=== PATIENT | female | born 1945 | race African-American/Black ===

== ENCOUNTER 2022-07-17 01:58 | Inpatient (IN) | payer MEDICARE, MEDICAID, SELFPAY ==
[2022-07-17] VITALS (76 sets, daily range): BP systolic 53–149; BP diastolic 24–98; PULSE 80–117; RESP 12–51; TEMP 36.4–36.8; O2SAT 80–100; BMI 21.2; BMI 18.3
--- NOTE | ~2022-07-17 | XR_ITS ---
Portable supine view of the abdomen Clinical history: NG tube placement Findings: NG tube is in satisfactory position. IVC filter noted. Bowel gas pattern is nonspecific. No evidence for obstruction or free air. No abnormal mass lesion or calcification is seen. Osseous stru ctures are intact. Impression: NG tube in satisfactory position. Reviewed, dictated and finalized at [facility]. Impression: NG tube in satisfactory position.
--- NOTE | ~2022-07-17 | XR_ITS ---
AP view of the pelvis Clinical history: Femoral line placement Findings: Right femoral line is in place. Prominent stool noted at the rectum. No acute fracture or d islocation is seen. Bilateral hip and SI joint spaces are preserved. Soft tissues are unremarkable. Impression: Right femoral line in place. Prominent stool at the rectum. Correlate for fecal impaction. Reviewed, dictated and finalized at location . Impression: Right femoral line in place. Prominent stool at the rectum. Correlate for fecal impaction.
--- NOTE | ~2022-07-17 | XR_ITS ---
Portable chest x-ray Comparison: 07/17/2022 at 2:50 AM Clinical History: Tube placement Findings: Endotracheal tube and NG tube are in satisfactory positions. COPD and/or chronic bibasilar interstitial disease are unchanged. Questionable minimal pleural effusions. Cardiomediastinal silho uette is stable. Bones and soft tissues are unremarkable. Impression: Support tubes, as above. Advanced COPD and/or bibasilar chronic interstitial disease is unchanged. Questionable minimal pleural effusions. Reviewed, dictated and finalized at location [facility]. Impression: Support tubes, as above. Advanced COPD and/or bibasilar chronic interstitial disease is unchanged. Questionable minimal pleural effusions.
--- NOTE | ~2022-07-17 | CT_ITS ---
Clinical Indication: Pulmonary embolus CT Scan of the Chest with Contrast: Technique: Contiguous sections were acquired throughout the chest after intravenous administration of 100 cc of Omnipaque 350. Dose reduction technique was used on this scan by utilizing automated expos ure control and iterative reconstruction technique. The dose-length product (DLP) was 279.20 mGy-cm. Findings: Endotracheal tube and NG tube are in place. There is no evidence of any significant mediastinal, hilar or axillary lymphadenopathy. There is no f illing defect in the pulmonary arterial tree to suggest pulmonary embolus. There is no evidence of ao rtic aneurysm. No pericardial effusion. [id number] right pleural effusion is present. Small left pleural effusion is present. There is extensive right lower lobe consolidation, suspicious for pneumonia. There is probable dependent left basilar atelectasis. There is severe underlying emphysema. Images through the upper abdomen reveal IVC filter and nonobstructing right renal stones. There are mild compression of T7, T9, and T10. Moderate to severe compression deformity at T11 presen t. Moderate compression deformity of L1 present. Impression: No pulmonary embolus. Small to moderate right pleural effusion with probable right lower lobe pneumonia. Severe emphysema bilaterally. Small left pleural effusion with probable dependent left basilar atelectatic change. Compression fractures of T7, T9, T10, T11, and L1, likely chronic. Reviewed, dictated and finalized at [facility]. Impression: No pulmonary embolus. Small to moderate right pleural effusion with probable right lower lobe pneumon ia. Severe emphysema bilaterally. Small left pleural effusion with probable dependent left basilar atelectatic ch jeanette. Compression fractures of T7, T9, T10, T11, and L1, likely chronic.
--- NOTE | ~2022-07-17 | XR_ITS ---
EXAMINATION: XR chest 1V portable DATE: 07/18/2022 06:34 INDICATION: Respiratory failure. TECHNIQUE: A single frontal view of the chest was obtained. COMPARISON: Chest single view 07/17/2022, chest CT 07/17/2022 FINDINGS: There are lucencies and interstitial opacities in the lungs, consistent with emphysema. The re is mild scarring at the lung apices. There are airspace opacities in the mid and lower lung zones. There are small pleural effusions. No pneumothorax. The heart size is normal. The endotracheal tube tip is 1.7 cm above the selam. The nasogastric tube tip is in the stomach. There is a filter in the inferior vena cava. IMPRESSION: 1. Stable airspace opacities in the mid and lower lung zones, consistent with pneumonia. 2. Stable small pleural effusions. 3. Emphysema. Reviewed, dictated and finalized at location [facility]. IMPRESSION: 1. Stable airspace opacities in the mid and lower lung zones, consistent with p neumonia. 2. Stable small pleural effusions. 3. Emphysema.
--- NOTE | ~2022-07-17 | XR_ITS ---
Portable chest x-ray Comparison: None Clinical History: Dyspnea Findings: There is bibasilar haziness and chronic interstitial disease. Probable COPD. Cardiomedias tinal silhouette is stable. Bones and soft tissues are unremarkable. Impression: COPD and other chronic bibasilar interstitial disease. Questionable superimposed minimal bibasilar pulmonary edema. Reviewed, dictated and finalized at [facility]. Impression: COPD and other chronic bibasilar interstitial disease. Questionable superimposed minimal bibasilar pulmonary edema.
--- NOTE | ~2022-07-17 | XR_ITS ---
EXAMINATION: XR chest 1V portable DATE: 07/23/2022 06:52 INDICATION: Respiratory failure. TECHNIQUE: A single frontal view of the chest was obtained. COMPARISON: Chest single view 07/22/2022 FINDINGS: There is a diffuse interstitial pattern in the lungs. There are lucencies in the upper lung s, consistent with emphysema. There are airspace opacities at the lung bases. There are small pleural effusions. No pneumothorax. The heart size is normal. A left upper extremity peripherally inserted c entral venous catheter (PICC) is seen with tip in the superior vena cava. There is a filter in the in ferior vena cava. IMPRESSION: 1. Stable diffuse lung disease, likely a combination of mild pulmonary edema and basilar pneumonia. 2. Emphysema. 3. Stable small pleural effusions. Reviewed, dictated and finalized at location [facility]. IMPRESSION: 1. Stable diffuse lung disease, likely a combination of mild pulmonary edema an d basilar pneumonia. 2. Emphysema. 3. Stable small pleural effusions.
--- NOTE | ~2022-07-17 | XR_ITS ---
Portable chest x-ray Comparison: 07/18/2022 Clinical History: Respiratory failure Findings: Endotracheal tube is in satisfactory position. Small to moderate bilateral pleural effusio ns are present. There is probable mild bibasilar pulmonary edema. Suspected underlying COPD. Cardiom ediastinal silhouette is stable. Bones and soft tissues are unremarkable. Impression: Small to moderate bilateral pleural effusions with probable mild bibasilar pulmonary edema. Probable underlying COPD. ET tube in place. Reviewed, dictated and finalized at location [facility]. Impression: Small to moderate bilateral pleural effusions with probable mild bibasilar pulm onary edema. Probable underlying COPD. ET tube in place.
--- NOTE | ~2022-07-17 | XR_ITS ---
EXAMINATION: XR chest PICC line DATE: 07/22/2022 12:59 INDICATION: Central line placement. TECHNIQUE: A single frontal view of the chest was obtained. COMPARISON: Chest single view 07/22/2022 FINDINGS: There are small pleural effusions. There are airspace opacities in the mid and lower lung z ones. There are lucencies in the upper lungs, consistent with emphysema. No pneumothorax. The heart s ize is normal. A left upper extremity peripherally inserted central venous catheter (PICC) is seen wi th tip in the superior vena cava. There is a filter in the inferior vena cava. IMPRESSION: 1. PICC tip in superior vena cava. 2. Airspace opacities in the mid and lower lung zones with improvement on the left, consistent with p neumonia. 3. Stable small pleural effusions. 4. Emphysema. Reviewed, dictated and finalized at location [facility]. IMPRESSION: 1. PICC tip in superior vena cava. 2. Airspace opacities in the mid and lower lung zones with improvement on the l eft, consistent with pneumonia. 3. Stable small pleural effusions. 4. Emphysema.
--- NOTE | ~2022-07-17 | XR_ITS ---
EXAMINATION: XR chest 1V portable DATE: 07/22/2022 05:21 INDICATION: Respiratory failure. TECHNIQUE: A single frontal view of the chest was obtained. COMPARISON: Chest single view 07/21/2022, chest CT 07/17/2022 FINDINGS: There are lucencies in the lungs, consistent with emphysema. There are airspace opacities i n right mid and lower lung zones and all left lung zones with sparing of left lung apex. There are sm all pleural effusions. No pneumothorax. The heart size is normal. There is a filter in the inferior v ajay cava. IMPRESSION: 1. Stable airspace opacities in right mid and lower lung zones and left lung, consistent with pneumon ia. 2. Stable small pleural effusions. 3. Emphysema. Reviewed, dictated and finalized at location [facility]. IMPRESSION: 1. Stable airspace opacities in right mid and lower lung zones and left lung, c onsistent with pneumonia. 2. Stable small pleural effusions. 3. Emphysema.
--- NOTE | ~2022-07-17 | CT_ITS ---
CT head without contrast Indication: Mental status change Technique: Serial scans were obtained through the brain without the administration of contrast. Dose reduction technique was used on this scan by utilizing automated exposure control and iterative recon struction technique. The dose-length product (DLP) was 605.33 mGy-cm. Findings: There is no evidence of intracranial hemorrhage, mass lesion, or acute infarct. The ventri cles and subarachnoid spaces are dilated, consistent with mild atrophy. Low attenuation regions are seen within the periventricular white matter bilaterally, likely representing changes from chronic mi crovascular ischemic disease. There is no evidence of edema, mass effect or midline shift. There is bilateral ethmoid sinus disease and right sphenoid sinus disease and mild right maxillary sinus disea se. The remaining visualized paranasal sinuses and mastoid air cells are clear. Impression: No intracranial hemorrhage, mass, or acute infarct. Atrophy and chronic white matter changes, as above. Sinus disease, as above. Reviewed, dictated and finalized at [facility]. Impression: No intracranial hemorrhage, mass, or acute infarct. Atrophy and chronic white matter changes, as above. Sinus disease, as above.
--- NOTE | ~2022-07-17 | XR_ITS ---
Portable chest x-ray Comparison: 07/20/2022 Clinical History: Respiratory failure Findings: ET tube in place. Small bilateral pleural effusions are present. Probable mild to moderate pulmonary edema pattern. Suspected minimal chronic interstitial disease or COPD. Cardiomediastinal silhouette is stable. Bones and soft tissues are unremarkable. Impression: Small bilateral pleural effusions with mild to moderate pulmonary edema pattern. Probable underlying COPD or chronic interstitial disease. ET tube in place. Reviewed, dictated and finalized at location . Impression: Small bilateral pleural effusions with mild to moderate pulmonary edema pattern . Probable underlying COPD or chronic interstitial disease. ET tube in place.
--- NOTE | 2022-07-17 02:01 | ECG_ITS ---
Measurements Intervals [place] Rate: 102 P: 63 [place]: 146 QRS: 5 QRSD: 78 T: 65 QT: 323 QTc: 421 Interpretive Statements SINUS TACHYCARDIA FREQUENT VENTRICULAR PREMATURE COMPLEXES RSR' IN V1 OR V2, PROBABLY NORMAL VARIANT MINIMAL Q WAVES- INFERIOR LEADS BASELINE ARTIFACT- I, II, III, AVR, V1-V6 ABNORMAL ECG NO PREVIOUS ECG AVAILABLE FOR COMPARISON Electronically Signed On 07-17-2022 6:50:25 CDT by Santino Colorado D.O.
[2022-07-17 02:20] LABS: Basophils Percent Auto 0.3 % (0.2-1.2); Hematocrit 49.9 % (37.0-47.0); Immature Granulocyte Absolute 0.06 K/mm3 (0.00-0.031); Immature Granulocyte Percent A 0.5 % (0-0.5); Lymphocytes Absolute Auto 0.91 K/mm3 (0.9-3.2); Lymphocytes Percent Auto 7.7 % (18.3-44.2); Mean Corpuscular HGB Conc 30.1 g/dl (32-36); Mean Corpuscular Hemoglobin 29.2 pg (26-34); Mean Corpuscular Volume 97.1 fl (80-100); Mean Platelet Volume 10.5 fl (7.4-10.4); Monocytes Absolute Auto 1.1 K/mm3 (0.1-0.6); Monocytes Percent Auto 8.9 % (2.6-8.5); Neutrophils Absolute Auto 9.8 K/mm3 (1.3-6.7); Neutrophils Percent Auto 82.6 % (45.5-73.1); Platelet Count Result 315 k/mm3 (150-375); Red Blood Count 5.14 M/mm3 (4.2-5.4); Red Cell Distribution Width 15.4 % (11.5-14.5); White Blood Count 11.9 K/mm3 (4.5-10.0)
[2022-07-17 02:24] LABS: Alveolar/Arterial O2 Gradient 354.1 mmHg; Base Excess ABG 5.3 mEq/l (+/-2.0); Fractional Inspired Oxygen 70 %; HCO3 ABG 34.3 mEq/l (22.0-26.0); Oxygen Content ABG 19.5 %vol (16.0-22.0); Oxygen Saturation ABG 91.6 % (95.0-100.0); Oxyhemoglobin 91.1 % THb (90.0-100.0); PO2 ABG 69.4 mmHg (80.0-100.0); PO2 FiO2 Ratio Arterial Blood 0.99 %; Total Hemoglobin 15.2 g/dL (12.0-18.0); pH ABG 7.306 (7.350-7.450)
[2022-07-17 02:25] LABS: PCO2 ABG 70.3 mmHg (35.0-45.0); Site Drawn RIGHT BRACHIAL
[2022-07-17 02:26] LABS: CPAP 5 cmH2O; Device CPAP
[2022-07-17 02:32] LABS: Alanine Aminotransferase 25 U/L (6-35); Alkaline Phosphatase 119 U/L (38-126); Anion Gap 6 mmol/L (8-16); Aspartate Amino Transferase 36 U/L (14-36); Bilirubin,Total 0.6 mg/dL (0.2-1.3); Blood Urea Nitrogen 55 mg/dL (7-17); Calcium 10.5 mg/dL (8.4-10.2); Carbon Dioxide 38 mmol/L (22-30); Chloride 103 mmol/L (98-107); Estimated Glomerular Filt Rate > 60; Glucose 207 mg/dL (65-110); Lactic Acid Reflex 1.9 mmol/L (0.7-2.0); Magnesium 2.6 mg/dL (1.6-2.3); Potassium 4.5 mmol/L (3.4-5.0); Sodium 147 mmol/L (137-145); Triglycerides 145 mg/dL (<150)
[2022-07-17] MEDS: LORazepam INJ (*CRX) 2 MG/ML VIAL 0.5 MG IV PUSH (02:41)
[2022-07-17 02:42] LABS: INR 1.2; Prothrombin Time 14.9 Seconds (11.1-14.7)
[2022-07-17 02:43] LABS: Partial Thromboplastin Time 29.6 SECONDS (22.3-36.8)
[2022-07-17 02:44] LABS: NT Pro B Type Natriuretic Pept 1180 pg/mL (19.9-100); Troponin I 0.017 ng/mL (0.000-0.034)
[2022-07-17] MEDS: IPRATROPIUM BR 0.02% INH SOLN 0.5 MG/2.5 ML VIAL INHALATION ×3 (02:47→20:59)
[2022-07-17] MEDS: ALBUTEROL SULFATE NEB 2.5 MG/3 ML INH INHALATION (02:47)
[2022-07-17 03:09] LABS: Influenza A QL RT-PCR Negative (Negative); Influenza B QL RT-PCR Negative (Negative); RSV RNA, RT-PCR Negative (Negative); SARS-CoV-2 RNA PCR Negative
[2022-07-17 03:14] LABS: Procalcitonin 0.5 ng/mL
[2022-07-17 03:36] LABS: Alveolar/Arterial O2 Gradient 208.7 mmHg; Base Excess ABG 6.9 mEq/l (+/-2.0); Fractional Inspired Oxygen 50 %; HCO3 ABG 35.6 mEq/l (22.0-26.0); Oxygen Content ABG 19.8 %vol (16.0-22.0); Oxygen Saturation ABG 92.5 % (95.0-100.0); Oxyhemoglobin 91.6 % THb (90.0-100.0); PO2 ABG 70.4 mmHg (80.0-100.0); PO2 FiO2 Ratio Arterial Blood 1.41 %; Total Hemoglobin 15.4 g/dL (12.0-18.0); pH ABG 7.332 (7.350-7.450)
[2022-07-17 03:38] LABS: Device BIPAP; Modified Allen's Test Pass; PCO2 ABG 68.8 mmHg (35.0-45.0); Site Drawn LEFT RADIAL
[2022-07-17 03:39] LABS: Expiratory Pressure 6 cmH2O; Inspiratory Pressure 14 cmH2O
[2022-07-17] MEDS: ETOMIDATE 20 MG/10 ML AMPUL IV PUSH (04:05)
[2022-07-17] MEDS: SUCCINYLCHOLINE CHLORIDE 20 MG/ML 10 ML VIAL 100 MG IV PUSH (04:06)
[2022-07-17] MEDS: SODIUM CHLORIDE 0.9% IV 1,000 ML 999 ML (04:21)
[2022-07-17 04:27] LABS: Appearance Urine Cloudy (Clear); Bacteria Urine None Seen /hpf; Bilirubin Urine 1+ (Negative); Blood Urine 2+ (Negative); Color Urine Dark Yellow (Yellow); Glucose Urine UA Negative (Negative); Ketones Urine Trace mg/dL (Negative); Leukocyte Esterase Ur 2+ LEU/UL (Negative); Need Manual Microscopic Reviewed; Nitrate Urine Negative (Negative); Non Pathogenic Casts >20; Protein Urine 3+ mg/dL (Negative); RBC Urine 21-50 /hpf (0-2); Specific Grav Ur 1.022 (1.001-1.035); Squamous Epithelial Cell Urine Few /hpf (Few); pH Urine 5.5 (5.0-9.0)
[2022-07-17] MEDS: SODIUM CHLORIDE 0.9% IV 1,000 ML 999 ML IV CONT ×2 (04:38→04:58)
[2022-07-17] MEDS: PIPERACILLN/TAZ 3.375GM/NS50ML 3.375 GM/50 ML BAG IVPB ×4 (04:45→23:03)
[2022-07-17 04:46] LABS: Add Urine Microscopic? YES
[2022-07-17] MEDS: KETAMINE HCL (*CRX) 500 MG/10 ML VIAL 50 MG IV PUSH (04:49)
[2022-07-17] MEDS: MIDAZOLAM HCL (*CRX) 2 MG/2 ML VIAL IV PUSH (04:49)
--- NOTE | 2022-07-17 05:26 | ED.GENADULT ---
HPI - General Adult General Chief complaint: Shortness of Breath/Dyspnea Stated complaint: DIFFICULTY IN BREATHING, AMS Time Seen by Provider: 07/17/22 01:59 History of Present Illness HPI narrative: Patient 76-year-old female who presents the emergency department with chief complaint of altered mental status and shortness of breath. The patient has prior history of respiratory failure and was admitted in [facility] back in April after she had had COVID and then developed pneumonia. The patient has had a PEG tube and has been doing tube feeds until fairly recently when they were able to restart oral feeding. Patient became short of breath this evening and is having worsening shortness of breath EMS was called and the patient was minimally responsive with a respiratory rate in the 40s and 50s. The patient was started on CPAP Related Data Home Medications Medication Instructions Recorded Confirmed acetaminophen 325 mg capsule 650 mg PRN Pain 07/17/22 amlodipine 10 mg tablet mg 07/17/22 famotidine 20 mg tablet mg 07/17/22 hydrochlorothiazide 25 mg tablet mg 07/17/22 ipratropium 0.5 mg-albuterol 3 mg ml inhalation 07/17/22 (2.5 mg base)/3 mL nebulization soln levetiracetam 750 mg tablet mg PO 07/17/22 losartan 50 mg tablet mg 07/17/22 metoprolol tartrate 50 mg tablet mg 07/17/22 mirtazapine 7.5 mg tablet mg 07/17/22 Allergies Allergy/AdvReac Type Severity Reaction Status Date / Time heparin (porcine) Allergy Unknown Verified 07/17/22 02:44 Review of Systems Review of Systems: A 10 system review of systems was completed on the patient and is negative except for what is stated in the HPI. Nursing and ancillary documentation was reviewed. PMFSH Comments Resident of a local nursing facility, prior trach, prior PEG Exam Narrative: GENERAL: Ill-appearing respiratory distress minimally responsive HEAD: Normocephalic, atraumatic. EYES: PERRLA and EOMI. ENT: Nares clear, no rhinorrhea or epistaxis. Mucous membranes moist. NECK: Supple. CHEST: Clear to auscultation. Severe respiratory distress. HEART: Regular rate and rhythm. No murmur heard. Normal peripheral pulses. ABDOMEN: Soft, nontender, nondistended, normal active bowel sounds. EXTREMITIES: Normal range of motion. No edema. SKIN: Warm, dry, no rash. NEURO: Minimally responsive PSYCH: Normal mood and affect. Course Course Emergency Course: Differential diagnosis include pneumonia, CHF, pulmonary embolism, ICH Vital Signs Vital signs: Vital Signs Temperature 36.4 C L 07/17/22 01:56 Pulse Rate 106 H 07/17/22 01:56 Respiratory Rate 40 H 07/17/22 01:56 Blood Pressure 147/83 H 07/17/22 01:56 Pulse Oximetry 93 07/17/22 01:56 Oxygen Delivery CPAP 07/17/22 01:56 Temperature 36.4 C L 07/17/22 01:56 Pulse Rate 92 07/17/22 05:27 Respiratory Rate 16 07/17/22 05:06 Blood Pressure 69/53 L 07/17/22 05:27 Pulse Oximetry 99 07/17/22 05:06 Oxygen Delivery Mechanical Ventilation 07/17/22 04:29 Procedures Central Line Placement Right Femoral: Central Line Date: 07/17/22 Central Line Time: 05:27 Discussed w/ the patient/family/POA,the placement of a central venous catheter, including its clinical necessity/indication & associated potential risks, benifits and alternatives.: Yes Time Out Performed: Yes Patient Placed on Monitor/Pulse Ox: Yes Max. Sterile Barrier Technique: Caps, large sterile sheet and hand hygiene Central Line Prep: 2% chlorhexidine scrub and sterile drapes applied Technique: sterile prep/drape Local Anesthetic: none Central Line Lumen Inserted: triple Post Procedure: sutured in place, good blood return, all ports aspirated, flushed, capped and sterile dressing applied Patient Tolerated Procedure: well and no complications Intubation Intubation #1: Intubation Date: 07/17/22 Intubation Time: 02:30
[2022-07-17] MEDS: NOREPINEPHRINE 8 MG/D5W 250 ML 8 MG/250 ML BAG 9.38 MG IV CONT (05:27)
[2022-07-17] MEDS: PROPOFOL IV EMULSION 100 ML 1.6 MG IV CONT (06:11)
[2022-07-17 06:40] LABS: Troponin I 0.016 ng/mL (0.000-0.034)
--- NOTE | 2022-07-17 07:20 | ADMGEN ---
This patient, Gabriela Aguayo, was admitted to Intensive Care Unit-5. Patient/family oriented to hospital policies and general routines including ID bracelet, bed and alarms, visiting hours, pain management, procedures, bathroom and other care routines, personal items, smoking policy, room service/diet, and visiting hours. Information on how to activate the Rapid Response Team has been discussed. Patient/Family are encouraged to report perceived risks to care and to ask questions if they do not understand what they are told or what they should do.
[2022-07-17] MEDS: SODIUM CHLORIDE 0.9% IV 1,000 ML 125 ML IV CONT ×2 (07:43→16:58)
[2022-07-17 08:40] LABS: Alveolar/Arterial O2 Gradient 243.7 mmHg; Base Excess ABG 4.4 mEq/l (+/-2.0); Fractional Inspired Oxygen 50 %; HCO3 ABG 28.1 mEq/l (22.0-26.0); Oxygen Content ABG 17.7 %vol (16.0-22.0); PCO2 ABG 38.6 mmHg (35.0-45.0); PO2 ABG 69.4 mmHg (80.0-100.0); PO2 FiO2 Ratio Arterial Blood 1.39 %; Total Hemoglobin 13.4 g/dL (12.0-18.0)
[2022-07-17 08:41] LABS: Modified Allen's Test Pass; Site Drawn RIGHT RADIAL
[2022-07-17 08:42] LABS: Arterial Blood Gas Vent Mode CMV; Arterial Blood Gas Ventilator rate 16 /MIN; Device VENTILATOR
[2022-07-17 08:43] LABS: Arterial Blood Gas Minute Volume 6.8 LPM; Arterial Blood Gas PEEP 5 cmH2O; Arterial Blood Gas Tidal Volume 450 ml
--- NOTE | 2022-07-17 09:30 | WPDCNINT ---
Assessment and Plan Assessment and plan (1) Acute hypercapnic respiratory failure: Code(s): J96.02 - Acute respiratory failure with hypercapnia Status: Acute Assessment and Plan: Hypercapnic respiratory failure likely related to pneumonia, COPD exacerbation -intubated on 07/17/2022 -chest x-ray reviewed - ABGs reviewed, tidal volumes decreased to 400 -continue Zosyn and vancomycin (07/17) -will continue bronchodilators and Pulmicort -sedated with propofol at 5 mcg/kg/min, daily spontaneous awakening trials and spontaneous breathing trial -continue low tidal volume strategy -07/17 CTA chest showed no pulmonary embolism, small to moderate right pleural effusion with probable right lower lobe pneumonia. Severe emphysema bilaterally. Small left pleural effusion with probable dependent left basilar atelectatic change (2) Septic shock: Code(s): A41.9 - Sepsis, unspecified organism; R65.21 - Severe sepsis with septic shock Status: Acute Assessment and Plan: Likely related to pneumonia, hypercapnic respiratory failure -continue antibiotics as above -07/17/2022 blood cultures have been obtained and pending -07/17/2022 MRSA screen is pending -07/17/2022 sputum cultures have been ordered -patient on Levophed, will maintain MAP > 65 mmHg at all times for adequate end organ perfusion -lactic acid is in normal limits (3) Pneumonia: Code(s): J18.9 - Pneumonia, unspecified organism Status: Acute Assessment and Plan: Right lower lobe pneumonia seen on CTA chest -continue antibiotics as above (4) Acute UTI: Code(s): N39.0 - Urinary tract infection, site not specified Status: Acute Assessment and Plan: UA was positive for leukocyte esterase, continue antibiotics as above, urine cultures have been obtained and pending (5) Seizures: Code(s): R56.9 - Unspecified convulsions Status: Acute Assessment and Plan: Patient is on Keppra at home for seizures, will continue (6) COPD (chronic obstructive pulmonary disease): Code(s): J44.9 - Chronic obstructive pulmonary disease, unspecified Status: Acute Assessment and Plan: History of COPD, continue bronchodilators, mechanical ventilation and antibiotics, -no wheezing noted will avoid steroids at this time (7) GERD (gastroesophageal reflux disease): Code(s): K21.9 - Gastro-esophageal reflux disease without esophagitis Status: Acute Assessment and Plan: History of GERD, will start on Protonix (8) Essential hypertension: Code(s): I10 - Essential (primary) hypertension Status: Acute Assessment and Plan: Patient does take antihypertensive medications, will currently hold place them on hold due to patient being on pressors Plan DVT prophylaxis: Lovenox SQ Stress ulcer prophylaxis: Protonix Nutrition: Will start tube feeds per PEG tube Code Status: Full code Critical Care Time Spent: 49 minutes Due to a high probability of clinically significant, life threatening deterioration, the patient required my highest level of preparedness to intervene emergently and I personally spent this critical care time directly and personally managing the patient. This critical care time included obtaining a history; examining the patient; pulse oximetry; ordering and review of studies; arranging urgent treatment with development of a management plan; evaluation of patient's response to treatment; frequent reassessment; and discussions with other providers. It was exclusive of separately billable procedures and treating other patients and teaching time. Please see Assessment and Plan section and the rest of the note for further information on patient assessment and treatment This dictation may have been done utilizing a voice recognition system. Attempts have been made to correct errors. However, there may be uncorrected grammatical, spelling, and recognitions errors present.
[2022-07-17] MEDS: FONDAPARINUX SODIUM 2.5 MG/0.5 ML SYRINGE SUB-Q (10:41)
[2022-07-17] MEDS: PANTOPRAZOLE SODIUM IV 40 MG VIAL IV PUSH (10:41)
--- NOTE | 2022-07-17 11:08 | PCDIET ---
Tube feeding recommendation using existing PEG tube: Vital AF 1.2 @ goal rate of 45ml/hr to provide 1188kcals, 74g protein to meet 100% of estimated needs at this time. Start at 20ml/hr and advance q 4hrs by 10ml as tolerated, to goal rate.
[2022-07-17] MEDS: levETIRAcetam Tablet 250 MG, levETIRAcetam Tablet 500 MG 750 MG PO ×2 (12:24→20:27)
--- NOTE | 2022-07-17 14:57 | PM.IMHP ---
H&P: HPI History of Present Illness Date/Time: 07/17/22 14:57 Chief Complaint: Patient 76-year-old female who presents the emergency department with chief complaint of altered mental status and shortness of breath.? The patient has prior history of respiratory failure and was admitted in [facility] back in April after she had had COVID and then developed pneumonia.? The patient has had a PEG tube and has been doing tube feeds until fairly recently when they were able to restart oral feeding.? Patient became short of breath this evening and is having worsening shortness of breath EMS was called and the patient was minimally responsive with a respiratory rate in the 40s and 50s.? The patient was started on CPAP Review of Systems Review of Systems: unable to obtain - patient intubated [facility] Social History Social History Smoking status: Unknown if ever smoked Alcohol intake: unknown Substance use: unknown Spiritual care concerns: No Meds Home Medications and Allergies Home Medications Medication Instructions Recorded Confirmed Type acetaminophen 325 mg capsule 650 mg PO Q6-8H PRN Pain 07/17/22 07/17/22 History amlodipine 10 mg tablet 10 mg DAILY 07/17/22 07/17/22 History famotidine 20 mg tablet 20 mg PO BID 07/17/22 07/17/22 History hydrochlorothiazide 25 mg tablet 25 mg PO DAILY 07/17/22 07/17/22 History ipratropium 0.5 mg-albuterol 3 mg 1 ml Q6H PRN Shortness Of Breath 07/17/22 07/17/22 History (2.5 mg base)/3 mL nebulization soln levetiracetam 750 mg tablet 750 mg PO BID 07/17/22 07/17/22 History losartan 50 mg tablet 50 mg PO DAILY 07/17/22 07/17/22 History metoprolol tartrate 50 mg tablet 50 mg PO BID 07/17/22 07/17/22 History mirtazapine 7.5 mg tablet 7.5 mg PO HS 07/17/22 07/17/22 History Allergies Allergy/AdvReac Type Severity Reaction Status Date / Time heparin (porcine) Allergy Unknown Verified 07/17/22 02:44 Vital Signs Vital Signs - 24 hr 07/17/22 01:56 07/17/22 02:37 07/17/22 02:51 Temperature 97.5 F L Pulse Rate 106 H 96 96 Respiratory Rate 40 H 50 H 41 H Blood Pressure 147/83 H Pulse Oximetry 93 97 Oxygen Delivery CPAP BiPAP Fraction of Inspired Oxygen 07/17/22 02:57 07/17/22 02:46 07/17/22 02:00 Temperature Pulse Rate 93 102 H Respiratory Rate 34 H 41 H Blood Pressure 96/63 L 149/74 H Pulse Oximetry 96 98 99 Oxygen Delivery CPAP Fraction of Inspired Oxygen 07/17/22 02:15 07/17/22 02:30 07/17/22 02:52 Temperature Pulse Rate 102 H 106 H 108 H Respiratory Rate 41 H 19 31 H Blood Pressure 142/98 H 118/72 110/81 Pulse Oximetry 97 97 100 Oxygen Delivery Fraction of Inspired Oxygen 07/17/22 03:00 07/17/22 03:16 07/17/22 04:20 Temperature Pulse Rate 103 H 97 115 H Respiratory Rate 34 H 40 H Blood Pressure 102/82 103/65 63/24 L Pulse Oximetry 99 98 Oxygen Delivery Fraction of Inspired Oxygen 07/17/22 04:29 07/17/22 05:27 07/17/22 03:31 Temperature Pulse Rate 103 H 92 106 H Respiratory Rate 43 H Blood Pressure 69/53 L 106/72 Pulse Oximetry 100 100 Oxygen Delivery Mechanical Ventilation Fraction of Inspired Oxygen 07/17/22 03:46 07/17/22 04:01 07/17/22 04:16 Temperature Pulse Rate 106 H 116 H 116 H Respiratory Rate 51 H 41 H 13 Blood Pressure 108/74 108/82 69/31 L Pulse Oximetry 80 L Oxygen Delivery Fraction of Inspired Oxygen 07/17/22 04:17 07/17/22 04:25 07/17/22 04:29 Temperature Pulse Rate 116 H 112 H 112 H Respiratory Rate 12 16 16 Blood Pressure 63/24 L 56/43 L 53/38 L Pulse Oximetry Oxygen Delivery Fraction of Inspired Oxygen 07/17/22 04:31 07/17/22 04:34 07/17/22 04:40 Temperature Pulse Rate 114 H 106 H 91 Respiratory Rate 16 16 16 Blood Pressure 54/41 L 54/34 L 94/74 L Pulse Oximetry 99 100 Oxygen Delivery Fraction of Inspired Oxygen 07/17/22 04:53 07/17/22 04:54 03
[2022-07-17] MEDS: LEVALBUTEROL NEB 1.25 MG/3 ML 0.63 MG INHALATION ×2 (15:40→20:59)
[2022-07-17] MEDS: CENTRAL LINE FLUSH 10 ML IV PUSH ×3 (16:24→20:26)
[2022-07-17] MEDS: MINERAL OIL/WHITE PETROLATUM OINTMENT 1 APPLIC EACH EYE (20:26)
[2022-07-17] MEDS: DOCUSATE SODIUM LIQ 100 MG/10 ML UDC PO (20:27)
[2022-07-17] MEDS: BUDESONIDE RESPULE NEB 0.5 MG/2 ML AMP INHALATION (20:59)
[2022-07-18] VITALS (32 sets, daily range): BP systolic 83–127; BP diastolic 61–83; PULSE 79–125; RESP 16–28; TEMP 36.1–36.9; O2SAT 93–99
[2022-07-18] MEDS: SODIUM CHLORIDE 0.9% IV 1,000 ML 125 ML IV CONT (01:27)
[2022-07-18] MEDS: LEVALBUTEROL NEB 1.25 MG/3 ML 0.63 MG INHALATION ×4 (02:49→20:30)
[2022-07-18] MEDS: IPRATROPIUM BR 0.02% INH SOLN 0.5 MG/2.5 ML VIAL INHALATION ×4 (02:49→20:29)
[2022-07-18] MEDS: PIPERACILLN/TAZ 3.375GM/NS50ML 3.375 GM/50 ML BAG IVPB ×3 (04:23→17:14)
[2022-07-18] MEDS: CENTRAL LINE FLUSH 10 ML IV PUSH ×4 (04:24→22:21)
[2022-07-18 04:36] LABS: Basophils Percent Auto 0.2 % (0.2-1.2); Eosinophils Percent Auto 0.1 % (0-4.4); Hematocrit 36.8 % (37.0-47.0); Hemoglobin 11.2 g/dL (12.0-15.0); Immature Granulocyte Absolute 0.03 K/mm3 (0.00-0.031); Immature Granulocyte Percent A 0.3 % (0-0.5); Lymphocytes Absolute Auto 1.07 K/mm3 (0.9-3.2); Lymphocytes Percent Auto 12.3 % (18.3-44.2); Mean Corpuscular HGB Conc 30.4 g/dl (32-36); Mean Corpuscular Hemoglobin 28.7 pg (26-34); Mean Corpuscular Volume 94.4 fl (80-100); Mean Platelet Volume 10.1 fl (7.4-10.4); Monocytes Absolute Auto 0.7 K/mm3 (0.1-0.6); Monocytes Percent Auto 7.9 % (2.6-8.5); Neutrophils Absolute Auto 6.9 K/mm3 (1.3-6.7); Neutrophils Percent Auto 79.2 % (45.5-73.1); Platelet Count Result 271 k/mm3 (150-375); Red Cell Distribution Width 15.9 % (11.5-14.5); White Blood Count 8.7 K/mm3 (4.5-10.0)
[2022-07-18 04:43] LABS: Alveolar/Arterial O2 Gradient 160.5 mmHg; Base Excess ABG 4.9 mEq/l (+/-2.0); Fractional Inspired Oxygen 40 %; Methemoglobin ABG 0.3 %THb (0-1.5); Oxygen Content ABG 16.6 %vol (16.0-22.0); Oxygen Saturation ABG 96.1 % (95.0-100.0); Oxyhemoglobin 95.5 % THb (90.0-100.0); PO2 ABG 77.6 mmHg (80.0-100.0); PO2 FiO2 Ratio Arterial Blood 1.94 %; Reduced Hemoglobin 4.2 %THb (0-5.0); Total Hemoglobin 12.3 g/dL (12.0-18.0); pH ABG 7.467 (7.350-7.450)
[2022-07-18 04:45] LABS: Alanine Aminotransferase 20 U/L (6-35); Alkaline Phosphatase 85 U/L (38-126); Anion Gap 0 mmol/L (8-16); Aspartate Amino Transferase 28 U/L (14-36); Bilirubin,Total 0.8 mg/dL (0.2-1.3); Blood Urea Nitrogen 29 mg/dL (7-17); Calcium 8.3 mg/dL (8.4-10.2); Carbon Dioxide 33 mmol/L (22-30); Chloride 111 mmol/L (98-107); Estimated CRCL calculation 83 ml/min; Estimated Glomerular Filt Rate > 60; Glucose 186 mg/dL (65-110); Potassium 3.1 mmol/L (3.4-5.0); Sodium 144 mmol/L (137-145)
[2022-07-18 04:45] LABS: Arterial Blood Gas Ventilator rate 16 /MIN; Device VENTILATOR; Site Drawn RIGHT BRACHIAL
[2022-07-18 04:46] LABS: Arterial Blood Gas PEEP 5 cmH2O; Arterial Blood Gas Tidal Volume 400 ml; Arterial Blood Gas Vent Mode CMV
[2022-07-18] MEDS: NOREPINEPHRINE 8 MG/D5W 250 ML 8 MG/250 ML BAG 3.75 MG IV CONT (05:23)
[2022-07-18] MEDS: BUDESONIDE RESPULE NEB 0.5 MG/2 ML AMP INHALATION ×2 (08:20→20:29)
[2022-07-18] MEDS: POTASSIUM BICARBONATE 25 MEQ TABEF 50 MEQ PO (09:21)
[2022-07-18] MEDS: MINERAL OIL/WHITE PETROLATUM OINTMENT 1 APPLIC EACH EYE ×2 (09:21→22:21)
[2022-07-18] MEDS: KCL 40 MEQ/WATER 100 ML 100 ML 25 ML IVPB (09:21)
[2022-07-18] MEDS: FONDAPARINUX SODIUM 2.5 MG/0.5 ML SYRINGE SUB-Q (09:22)
[2022-07-18] MEDS: PANTOPRAZOLE SODIUM IV 40 MG VIAL IV PUSH (09:22)
[2022-07-18] MEDS: levETIRAcetam Tablet 250 MG, levETIRAcetam Tablet 500 MG 750 MG PO ×2 (09:22→22:21)
[2022-07-18] MEDS: DOCUSATE SODIUM LIQ 100 MG/10 ML UDC PO ×2 (09:22→22:21)
[2022-07-18] MEDS: polyethylene glycoL 3350 17 GM POWD.PACK PO (09:23)
--- NOTE | 2022-07-18 09:46 | WPDINTPN ---
Progress Note: A&P Assessment and Plan (1) Acute hypercapnic respiratory failure: Code(s): J96.02 - Acute respiratory failure with hypercapnia Status: Acute Assessment and Plan: Hypercapnic respiratory failure likely related to pneumonia, COPD exacerbation -intubated on 07/17/2022 -PSV trial tried this morning but patient immediately failed due tidal volumes in the range of 100s mL -chest x-ray reviewed - ABGs reviewed, tidal volumes decreased to 350 mL -continue Zosyn and vancomycin (07/17) -will continue bronchodilators and Pulmicort -currently off sedation completely. Will use Precedex for comfort and light sedation -continue low tidal volume strategy - Hold further IV fluids -07/17 CTA chest showed no pulmonary embolism, small to moderate right pleural effusion with probable right lower lobe pneumonia. Severe emphysema bilaterally. Small left pleural effusion with probable dependent left basilar atelectatic change (2) Septic shock: Code(s): A41.9 - Sepsis, unspecified organism; R65.21 - Severe sepsis with septic shock Status: Acute Assessment and Plan: Likely related to pneumonia, hypercapnic respiratory failure -continue antibiotics as above -07/17/2022 blood cultures have been obtained and pending -07/17/2022 MRSA screen is pending -07/17/2022 sputum cultures have been ordered -Levophed weaned off. will maintain MAP > 65 mmHg at all times for adequate end organ perfusion -lactic acid is in normal limits -hold further IV fluids (3) Pneumonia: Code(s): J18.9 - Pneumonia, unspecified organism Status: Acute Assessment and Plan: Right lower lobe pneumonia seen on CTA chest -continue antibiotics as above (4) Acute UTI: Code(s): N39.0 - Urinary tract infection, site not specified Status: Acute Assessment and Plan: UA was positive for leukocyte esterase, continue antibiotics as above, urine cultures have been obtained and pending (5) Seizures: Code(s): R56.9 - Unspecified convulsions Status: Acute Assessment and Plan: Patient is on Keppra at home for seizures, will continue (6) COPD (chronic obstructive pulmonary disease): Code(s): J44.9 - Chronic obstructive pulmonary disease, unspecified Status: Acute Assessment and Plan: History of COPD, continue bronchodilators, mechanical ventilation and antibiotics, -no wheezing noted will avoid steroids at this time (7) GERD (gastroesophageal reflux disease): Code(s): K21.9 - Gastro-esophageal reflux disease without esophagitis Status: Acute Assessment and Plan: History of GERD, continue Protonix (8) Essential hypertension: Code(s): I10 - Essential (primary) hypertension Status: Acute Assessment and Plan: Patient does take antihypertensive medications, will currently hold place them on hold due to patient being on pressors Plan DVT prophylaxis: Lovenox SQ Stress ulcer prophylaxis: Protonix Nutrition: Continue tube feeds per PEG tube Code Status: Full code Critical Care Time Spent: 30 minutes Due to a high probability of clinically significant, life threatening deterioration, the patient required my highest level of preparedness to intervene emergently and I personally spent this critical care time directly and personally managing the patient. This critical care time included obtaining a history; examining the patient; pulse oximetry; ordering and review of studies; arranging urgent treatment with development of a management plan; evaluation of patient's response to treatment; frequent reassessment; and discussions with other providers. It was exclusive of separately billable procedures and treating other patients and teaching time. Please see Assessment and Plan section and the rest of the note for further information on patient assessment and treatment This dictation may have been done utilizing a voice recognition system. Attempts narvaez
--- NOTE | 2022-07-18 10:38 | PCNFU ---
Nutrition Follow-Up Complete: Inadequate energy intake related to mechanical ventilation as evidenced by NPO status Goal:Meet estimated needs. pt is meeting goal, continue with current plan of care. Pt current nutrition is NPO, Tube feedings: Vital 1.2 AF @ 45ml/hr - goal rate. Nutrition recommendation: Continue with current plan of care Last recorded weight is 60 kg. Bowel Motility: no BM recorded at this time Labs Reviewed: Hgb:11.2, HCT:36.8, Alb:3.0, K:3.1, BUN:29, Cr:0.4 Meds Noted: colace, propofol d/c'd Skin: WNL Additional Notes: pt started on tube feedings yesterday per recommendation. Tube feed is up to goal rate and pt is tolerating well, meeting estimated needs. Monitor for tube feeding start, tolerance, wt, labs. Follow up every Sunday/Sunday and round daily in ICU.
[2022-07-18] MEDS: dexmedeTOMIDine 400 MCG/100 ML 400 MCG/100 ML BAG IV CONT (12:20)
[2022-07-18 18:03] LABS: Vancomycin Trough 10.4 ug/mL (10.0-20.0)
[2022-07-19] VITALS (32 sets, daily range): BP systolic 86–127; BP diastolic 63–76; PULSE 60–87; RESP 14–26; TEMP 36.2–36.7; O2SAT 96–100
[2022-07-19] MEDS: PIPERACILLN/TAZ 3.375GM/NS50ML 3.375 GM/50 ML BAG IVPB ×5 (00:10→23:41)
[2022-07-19] MEDS: IPRATROPIUM BR 0.02% INH SOLN 0.5 MG/2.5 ML VIAL INHALATION ×4 (02:40→19:37)
[2022-07-19] MEDS: LEVALBUTEROL NEB 1.25 MG/3 ML 0.63 MG INHALATION ×4 (02:40→19:37)
[2022-07-19 05:06] LABS: Hematocrit 32.1 % (37.0-47.0); Hemoglobin 9.9 g/dL (12.0-15.0); Mean Corpuscular HGB Conc 30.8 g/dl (32-36); Mean Corpuscular Hemoglobin 28.9 pg (26-34); Mean Corpuscular Volume 93.6 fl (80-100); Mean Platelet Volume 10.7 fl (7.4-10.4); Platelet Count Result 263 k/mm3 (150-375); Red Blood Count 3.43 M/mm3 (4.2-5.4); Red Cell Distribution Width 15.9 % (11.5-14.5); White Blood Count 6.5 K/mm3 (4.5-10.0)
[2022-07-19 05:12] LABS: Magnesium 2.1 mg/dL (1.6-2.3); Phosphorus 1.1 mg/dL (2.5-4.5)
[2022-07-19 05:22] LABS: Estimated CRCL calculation 105 ml/min; Estimated Glomerular Filt Rate > 60; Triglycerides 82 mg/dL (<150)
[2022-07-19] MEDS: CENTRAL LINE FLUSH 10 ML IV PUSH ×4 (05:48→23:42)
[2022-07-19] MEDS: BUDESONIDE RESPULE NEB 0.5 MG/2 ML AMP INHALATION ×2 (08:05→19:37)
[2022-07-19 08:44] LABS: Anion Gap 3 mmol/L (8-16); Blood Urea Nitrogen 18 mg/dL (7-17); Calcium 8.8 mg/dL (8.4-10.2); Carbon Dioxide 32 mmol/L (22-30); Chloride 108 mmol/L (98-107); Estimated CRCL calculation 105 ml/min; Estimated Glomerular Filt Rate > 60; Glucose 176 mg/dL (65-110); Sodium 143 mmol/L (137-145)
--- NOTE | 2022-07-19 08:59 | WPDINTPN ---
Progress Note: A&P Assessment and Plan (1) Acute hypercapnic respiratory failure: Code(s): J96.02 - Acute respiratory failure with hypercapnia Status: Acute Assessment and Plan: Hypercapnic respiratory failure likely related to pneumonia, COPD exacerbation -intubated on 07/17/2022 -PSV trial tried this morning but patient immediately failed due tidal volumes in the range of 100s mL. I have increased pressure support to 12/5 and continue as tolerated -most recent chest x-ray reviewed -most recent ABGs reviewed, current tidal volume is at 350 mL -continue Zosyn (07/17). Will hold vancomycin cultures and MRSA screen has been negative -will continue bronchodilators and Pulmicort -currently on low-dose Precedex for comfort and light sedation -continue low tidal volume strategy - Hold further IV fluids -07/17 CTA chest showed no pulmonary embolism, small to moderate right pleural effusion with probable right lower lobe pneumonia. Severe emphysema bilaterally. Small left pleural effusion with probable dependent left basilar atelectatic change (2) Septic shock: Code(s): A41.9 - Sepsis, unspecified organism; R65.21 - Severe sepsis with septic shock Status: Acute Assessment and Plan: Likely related to pneumonia, hypercapnic respiratory failure -continue antibiotics as above -07/17/2022 blood cultures have been obtained and negative till now -07/17/2022 MRSA screen was negative -07/17/2022 sputum cultures have been ordered negative till now -Levophed weaned off. will maintain MAP > 65 mmHg at all times for adequate end organ perfusion -lactic acid is in normal limits -hold further IV fluids (3) Pneumonia: Code(s): J18.9 - Pneumonia, unspecified organism Status: Acute Assessment and Plan: Right lower lobe pneumonia seen on CTA chest -continue antibiotics as above (4) Acute UTI: Code(s): N39.0 - Urinary tract infection, site not specified Status: Acute Assessment and Plan: UA was positive for leukocyte esterase, continue antibiotics as above, urine cultures was negative (5) Seizures: Code(s): R56.9 - Unspecified convulsions Status: Acute Assessment and Plan: Patient is on Keppra at home for seizures, will continue (6) COPD (chronic obstructive pulmonary disease): Code(s): J44.9 - Chronic obstructive pulmonary disease, unspecified Status: Acute Assessment and Plan: History of COPD, continue bronchodilators, mechanical ventilation and antibiotics, -no wheezing noted will avoid steroids at this time (7) GERD (gastroesophageal reflux disease): Code(s): K21.9 - Gastro-esophageal reflux disease without esophagitis Status: Acute Assessment and Plan: History of GERD, continue Protonix (8) Essential hypertension: Code(s): I10 - Essential (primary) hypertension Status: Acute Assessment and Plan: Patient does take antihypertensive medications, will currently on hold Plan DVT prophylaxis: Lovenox SQ Stress ulcer prophylaxis: Protonix Nutrition: Continue tube feeds per PEG tube Code Status: Full code Critical Care Time Spent: 32 minutes Due to a high probability of clinically significant, life threatening deterioration, the patient required my highest level of preparedness to intervene emergently and I personally spent this critical care time directly and personally managing the patient. This critical care time included obtaining a history; examining the patient; pulse oximetry; ordering and review of studies; arranging urgent treatment with development of a management plan; evaluation of patient's response to treatment; frequent reassessment; and discussions with other providers. It was exclusive of separately billable procedures and treating other patients and teaching time. Please see Assessment and Plan section and the rest of the note for further information on patient assessment and treatment
[2022-07-19] MEDS: PANTOPRAZOLE SODIUM IV 40 MG VIAL IV PUSH ×2 (09:02→20:06)
[2022-07-19] MEDS: FONDAPARINUX SODIUM 2.5 MG/0.5 ML SYRINGE SUB-Q (09:02)
[2022-07-19] MEDS: MINERAL OIL/WHITE PETROLATUM OINTMENT 1 APPLIC EACH EYE ×2 (09:02→20:06)
[2022-07-19] MEDS: levETIRAcetam Tablet 250 MG, levETIRAcetam Tablet 500 MG 750 MG PO ×2 (09:02→20:06)
[2022-07-19] MEDS: POTASSIUM/PHOSPHORUS/SODIUM 1.5 GM PACKET 1 PACKET FEED TUBE (09:02)
[2022-07-19] MEDS: POTASSIUM PHOS,M-BASIC-D-BASIC 20 MMOL in SODIUM CHLORIDE 0.9% IV 250 ML 64.17 MMOL IVPB (09:03)
--- NOTE | 2022-07-19 11:09 | PCFNICU ---
ICU Rounding Note: Pt current nutrition is Vital AF 1.2 at 45 ml/hr. Last recorded weight is 61.9 kg. Bowel Motility: +Bm reported 07/19 Labs Reviewed:Glu 176, BUN 18, Cr 0.3,Hct 32.6, Hgb 9.9 Meds Noted:Precedex,Colace, Vancomycin,Zosyn Skin: WNL Additional Notes: Patient remains on mechanical vent and tube feedings of Vital AF 1.2 at 45 ml/hr and tolerating per nursing. Tube feedings are providing 1188 kcals/74 gms protein. Agree with diet orders. Monitor for tube feeding start, tolerance, wt, labs. Follow up every Sunday/Sunday and round daily in ICU.
--- NOTE | 2022-07-19 18:18 | PM.IMPN ---
Progress Note: A&P Assessment and Plan (1) Acute hypercapnic respiratory failure: Code(s): J96.02 - Acute respiratory failure with hypercapnia Status: Acute Assessment and Plan: Hypercapnic respiratory failure likely related to pneumonia, COPD exacerbation -intubated on 07/17/2022 -continue Zosyn and vancomycin -will continue bronchodilators and Pulmicort 07/19/2022 interval history: Patient with hypercarbic respiratory failure on ventilator secondary to exacerbation of COPD and pneumonia, patient is being treated with Zosyn and vancomycin, as well as bronchodilator, patient seen by coat examiner and was given trial of weaning off the ventilator but patient was not able to tolerate will continue to monitor (2) Septic shock: Code(s): A41.9 - Sepsis, unspecified organism; R65.21 - Severe sepsis with septic shock Status: Acute Assessment and Plan: Likely related to pneumonia, hypercapnic respiratory failure -continue antibiotics as above (3) Pneumonia: Code(s): J18.9 - Pneumonia, unspecified organism Status: Acute Assessment and Plan: Right lower lobe pneumonia seen on CTA chest -continue antibiotics as above (4) Acute UTI: Code(s): N39.0 - Urinary tract infection, site not specified Status: Acute Assessment and Plan: UA was positive for leukocyte esterase, continue antibiotics as above, urine cultures have been obtained and pending (5) Seizures: Code(s): R56.9 - Unspecified convulsions Status: Acute Assessment and Plan: Patient is on Keppra at home for seizures, will continue (6) COPD (chronic obstructive pulmonary disease): Code(s): J44.9 - Chronic obstructive pulmonary disease, unspecified Status: Acute Assessment and Plan: History of COPD, continue bronchodilators, mechanical ventilation and antibiotics, (7) GERD (gastroesophageal reflux disease): Code(s): K21.9 - Gastro-esophageal reflux disease without esophagitis Status: Acute Assessment and Plan: History of GERD, will start on Protonix (8) Essential hypertension: Code(s): I10 - Essential (primary) hypertension Status: Acute Assessment and Plan: Patient does take antihypertensive medications, will currently hold place them on hold due to patient being on pressors Subjective Date/time seen: 07/19/22 18:18 Hypercapnic respiratory failure likely related to pneumonia, COPD exacerbation -intubated on 07/17/2022 -continue Zosyn and vancomycin -will continue bronchodilators and Pulmicort 07/19/2022 interval history: Patient with hypercarbic respiratory failure on ventilator secondary to exacerbation of COPD and pneumonia, patient is being treated with Zosyn and vancomycin, as well as bronchodilator, patient seen by coat examiner and was given trial of weaning off the ventilator but patient was not able to tolerate will continue to monitor Review of Systems Review of Systems: ROS unobtainable: Yes unobtainable due to endotracheal tube Exam Narrative: Patient is comfortable, NAD HEENT: ET tube in place LUNGS: Normal respiratory effort HEART: RR S1S2 ABD: Not distended Lower extremities: no edema SKIN: nonjaundiced Neuro: On vent and sedated. Objective Data Vital Signs Vital Signs: Vital Signs - 24 hr 07/18/22 20:00 07/18/22 20:00 07/18/22 20:25 Temperature 97.6 F Pulse Rate 86 87 Respiratory Rate 18 Blood Pressure 105/73 Pulse Oximetry 99 98 Oxygen Delivery Mechanical Ventilation Fraction of Inspired Oxygen 40 40 07/18/22 20:31 07/18/22 20:41 07/19/22 00:02 Temperature Pulse Rate 88 89 72 Respiratory Rate 18 18 Blood Pressure Pulse Oximetry 98 Oxygen Delivery Mechanical Ventilation Fraction of Inspired Oxygen 40 07/19/22 02:41 07/19/22 02:43 07/19/22 02:50 Temperature Pulse Rate 75 77 78 Respiratory Rate 15 16 Blood Pressure Pulse Oximetry
[2022-07-19] MEDS: DOCUSATE SODIUM LIQ 100 MG/10 ML UDC PO (20:06)
[2022-07-20] VITALS (28 sets, daily range): BP systolic 99–135; BP diastolic 68–82; PULSE 62–85; RESP 14–24; TEMP 36.3–36.6; O2SAT 94–100
[2022-07-20] MEDS: IPRATROPIUM BR 0.02% INH SOLN 0.5 MG/2.5 ML VIAL INHALATION ×4 (02:08→19:52)
[2022-07-20] MEDS: LEVALBUTEROL NEB 1.25 MG/3 ML 0.63 MG INHALATION ×4 (02:08→19:52)
[2022-07-20 05:17] LABS: Alveolar/Arterial O2 Gradient 129.9 mmHg; Base Excess ABG 4.2 mEq/l (+/-2.0); Carboxyhemoglobin 0.3 % THb (0-2.0); Fractional Inspired Oxygen 40 %; HCO3 ABG 29.4 mEq/l (22.0-26.0); Methemoglobin ABG 0.4 %THb (0-1.5); Oxygen Content ABG 15.8 %vol (16.0-22.0); Oxygen Saturation ABG 97.7 % (95.0-100.0); Oxyhemoglobin 96.6 % THb (90.0-100.0); PCO2 ABG 46.3 mmHg (35.0-45.0); PO2 ABG 102.1 mmHg (80.0-100.0); PO2 FiO2 Ratio Arterial Blood 2.55 %; Reduced Hemoglobin 2.7 %THb (0-5.0); Total Hemoglobin 11.5 g/dL (12.0-18.0)
[2022-07-20 05:18] LABS: Device VENTILATOR; Site Drawn RIGHT BRACHIAL
[2022-07-20 05:19] LABS: Arterial Blood Gas PEEP 5 cmH2O; Arterial Blood Gas Tidal Volume 350 ml; Arterial Blood Gas Vent Mode CMV; Arterial Blood Gas Ventilator rate 14 /MIN
[2022-07-20] MEDS: PIPERACILLN/TAZ 3.375GM/NS50ML 3.375 GM/50 ML BAG IVPB ×3 (05:28→17:06)
[2022-07-20] MEDS: CENTRAL LINE FLUSH 10 ML IV PUSH ×4 (05:29→22:00)
[2022-07-20 06:43] LABS: IFOB Positive Control Positive; Immunochemical Fecal Occult Bl Positive (N)
[2022-07-20] MEDS: BUDESONIDE RESPULE NEB 0.5 MG/2 ML AMP INHALATION ×2 (08:35→19:52)
--- NOTE | 2022-07-20 09:25 | WPDINTPN ---
Progress Note: A&P Assessment and Plan (1) Acute hypercapnic respiratory failure: Code(s): J96.02 - Acute respiratory failure with hypercapnia Status: Acute Assessment and Plan: Hypercapnic respiratory failure likely related to pneumonia, COPD exacerbation -intubated on 07/17/2022 -PSV trial yesterday morning but patient immediately failed due tidal volumes in the range of 100s mL. I increased pressure support to 12/5 and continue as tolerated - 07/20 on PSV 08/25 patient rate was close to 30 and tidal volumes low 200s. I increased pressure support to 10/5 will continue as tolerated. Patient is doing slightly better but not good enough to be extubated. -patient has been trached in the past hence will be difficult weaning -most recent chest x-ray reviewed -most recent ABGs reviewed, current tidal volume is at 350 mL -continue Zosyn and azithromycin (07/17). Discontinued vancomycin as cultures and MRSA screen has been negative -will continue bronchodilators and Pulmicort -currently on low-dose Precedex for comfort and light sedation -continue low tidal volume strategy - Hold further IV fluids -07/17 CTA chest showed no pulmonary embolism, small to moderate right pleural effusion with probable right lower lobe pneumonia. Severe emphysema bilaterally. Small left pleural effusion with probable dependent left basilar atelectatic change (2) Septic shock: Code(s): A41.9 - Sepsis, unspecified organism; R65.21 - Severe sepsis with septic shock Status: Acute Assessment and Plan: Likely related to pneumonia, hypercapnic respiratory failure -continue antibiotics as above -07/17/2022 blood cultures have been obtained and negative till now -07/17/2022 MRSA screen was negative -07/17/2022 sputum cultures have been ordered negative till now -Levophed weaned off. will maintain MAP > 65 mmHg at all times for adequate end organ perfusion -lactic acid is in normal limits -hold further IV fluids (3) Pneumonia: Code(s): J18.9 - Pneumonia, unspecified organism Status: Acute Assessment and Plan: Right lower lobe pneumonia seen on CTA chest -continue antibiotics as above (4) Acute UTI: Code(s): N39.0 - Urinary tract infection, site not specified Status: Acute Assessment and Plan: UA was positive for leukocyte esterase, continue antibiotics as above, urine cultures was negative (5) Seizures: Code(s): R56.9 - Unspecified convulsions Status: Acute Assessment and Plan: Patient is on Keppra at home for seizures, will continue (6) COPD (chronic obstructive pulmonary disease): Code(s): J44.9 - Chronic obstructive pulmonary disease, unspecified Status: Acute Assessment and Plan: History of COPD, continue bronchodilators, mechanical ventilation and antibiotics, -no wheezing noted will avoid steroids at this time (7) GERD (gastroesophageal reflux disease): Code(s): K21.9 - Gastro-esophageal reflux disease without esophagitis Status: Acute Assessment and Plan: History of GERD, continue Protonix (8) Essential hypertension: Code(s): I10 - Essential (primary) hypertension Status: Acute Assessment and Plan: Patient does take antihypertensive medications, will currently on hold Plan DVT prophylaxis: Lovenox SQ Stress ulcer prophylaxis: Protonix Nutrition: Continue tube feeds per PEG tube Code Status: Full code Critical Care Time Spent: 30 minutes Due to a high probability of clinically significant, life threatening deterioration, the patient required my highest level of preparedness to intervene emergently and I personally spent this critical care time directly and personally managing the patient. This critical care time included obtaining a history; examining the patient; pulse oximetry; ordering and review of studies; arranging urgent treatment with development of a management plan; evaluation of patient's response to
[2022-07-20] MEDS: DOCUSATE SODIUM LIQ 100 MG/10 ML UDC PO ×2 (09:31→19:39)
[2022-07-20] MEDS: levETIRAcetam Tablet 250 MG, levETIRAcetam Tablet 500 MG 750 MG PO ×2 (09:32→19:39)
[2022-07-20] MEDS: MINERAL OIL/WHITE PETROLATUM OINTMENT 1 APPLIC EACH EYE ×2 (09:32→19:55)
[2022-07-20] MEDS: PANTOPRAZOLE SODIUM IV 40 MG VIAL IV PUSH ×2 (09:32→19:39)
[2022-07-20] MEDS: FONDAPARINUX SODIUM 2.5 MG/0.5 ML SYRINGE SUB-Q (09:32)
[2022-07-20 09:35] LABS: Hematocrit 32.7 % (37.0-47.0); Hemoglobin 9.8 g/dL (12.0-15.0); Mean Corpuscular Hemoglobin 28.8 pg (26-34); Mean Corpuscular Volume 96.2 fl (80-100); Mean Platelet Volume 9.4 fl (7.4-10.4); Platelet Count Result 297 k/mm3 (150-375); Red Cell Distribution Width 16.1 % (11.5-14.5); White Blood Count 6.7 K/mm3 (4.5-10.0)
[2022-07-20 09:46] LABS: Alanine Aminotransferase 21 U/L (6-35); Albumin Level 2.9 g/dL (3.5-5.1); Alkaline Phosphatase 81 U/L (38-126); Anion Gap 2 mmol/L (8-16); Aspartate Amino Transferase 28 U/L (14-36); Bilirubin,Total 0.6 mg/dL (0.2-1.3); Blood Urea Nitrogen 12 mg/dL (7-17); Calcium 8.4 mg/dL (8.4-10.2); Carbon Dioxide 35 mmol/L (22-30); Chloride 104 mmol/L (98-107); Estimated CRCL calculation 105 ml/min; Estimated Glomerular Filt Rate > 60; Glucose 148 mg/dL (65-110); Magnesium 1.8 mg/dL (1.6-2.3); Phosphorus 3.2 mg/dL (2.5-4.5); Potassium 4.2 mmol/L (3.4-5.0); Sodium 141 mmol/L (137-145)
--- NOTE | 2022-07-20 11:26 | PCFNICU ---
ICU Rounding Note: Pt current nutrition is Vital AF 1.2 at 45 ml/hr. Last recorded weight is 63.2 kg. Bowel Motility:+BM reported 07/20 Labs Reviewed:no labs to report at this time. Meds Noted:Miralax, Zosyn, Colace Skin: WNL Additional Notes: Patient remains on mechanical vent. Breathing trial today. Tube feedings are being tolerated per nursing of Vital AF 1.2 at 45 ml/hr with Flush 30 ml q 4 hours. Agree with diet orders. Monitor for tube feeding start, tolerance, wt, labs. Follow up every Sunday/Sunday and round daily in ICU. .
--- NOTE | 2022-07-20 15:50 | PM.IMPN ---
Progress Note: A&P Assessment and Plan (1) Acute hypercapnic respiratory failure: Code(s): J96.02 - Acute respiratory failure with hypercapnia Status: Acute Assessment and Plan: Hypercapnic respiratory failure likely related to pneumonia, COPD exacerbation -intubated on 07/17/2022 -continue Zosyn and vancomycin -will continue bronchodilators and Pulmicort 07/20/2022 interval history: Patient with hypercarbic respiratory failure on ventilator secondary to exacerbation of COPD and pneumonia, patient is being treated with Zosyn and vancomycin, as well as bronchodilator, patient seen by sewer pipe sorter and again today was given trial of weaning off the ventilator but patient was not able to tolerate will continue to monitor (2) Septic shock: Code(s): A41.9 - Sepsis, unspecified organism; R65.21 - Severe sepsis with septic shock Status: Acute Assessment and Plan: Likely related to pneumonia, hypercapnic respiratory failure -continue antibiotics as above (3) Pneumonia: Code(s): J18.9 - Pneumonia, unspecified organism Status: Acute Assessment and Plan: Right lower lobe pneumonia seen on CTA chest -continue antibiotics as above (4) Acute UTI: Code(s): N39.0 - Urinary tract infection, site not specified Status: Acute Assessment and Plan: UA was positive for leukocyte esterase, continue antibiotics as above, urine cultures have been obtained and pending (5) Seizures: Code(s): R56.9 - Unspecified convulsions Status: Acute Assessment and Plan: Patient is on Keppra at home for seizures, will continue (6) COPD (chronic obstructive pulmonary disease): Code(s): J44.9 - Chronic obstructive pulmonary disease, unspecified Status: Acute Assessment and Plan: History of COPD, continue bronchodilators, mechanical ventilation and antibiotics, (7) GERD (gastroesophageal reflux disease): Code(s): K21.9 - Gastro-esophageal reflux disease without esophagitis Status: Acute Assessment and Plan: History of GERD, will start on Protonix (8) Essential hypertension: Code(s): I10 - Essential (primary) hypertension Status: Acute Assessment and Plan: Patient does take antihypertensive medications, will currently hold place them on hold due to patient being on pressors Subjective Date/time seen: 07/20/22 15:50 Hypercapnic respiratory failure likely related to pneumonia, COPD exacerbation -intubated on 07/17/2022 -continue Zosyn and vancomycin -will continue bronchodilators and Pulmicort 07/20/2022 interval history: Patient with hypercarbic respiratory failure on ventilator secondary to exacerbation of COPD and pneumonia, patient is being treated with Zosyn and vancomycin, as well as bronchodilator, patient seen by sewer pipe sorter and again today was given trial of weaning off the ventilator but patient was not able to tolerate will continue to monitor Review of Systems Review of Systems: ROS unobtainable: Yes unobtainable due to endotracheal tube Exam Narrative: Patient is comfortable, NAD HEENT: ET tube in place LUNGS: Normal respiratory effort HEART: RR S1S2 ABD: Not distended Lower extremities: no edema SKIN: nonjaundiced Neuro: On vent and sedated. Objective Data Vital Signs Vital Signs: Vital Signs - 24 hr 07/19/22 16:00 07/19/22 16:00 07/19/22 16:00 Temperature Pulse Rate 77 77 Respiratory Rate 17 Blood Pressure Pulse Oximetry 97 Oxygen Delivery Mechanical Ventilation Fraction of Inspired Oxygen 40 40 07/19/22 16:24 07/19/22 16:00 07/19/22 18:00 Temperature 98.1 F Pulse Rate 77 77 60 Respiratory Rate 14 18 Blood Pressure 107/69 98/70 L Pulse Oximetry 97 97 97 Oxygen Delivery Mechanical Ventilation Fraction of Inspired Oxygen 40 07/19/22 18:00 07/19/22 17:58 07/19/22 19:37 Temperature Pulse Rate 60 62 76 Respiratory Rate 15 Blood
[2022-07-20 18:16] LABS: Anion Gap 2 mmol/L (8-16); Blood Urea Nitrogen 12 mg/dL (7-17); Calcium 8.1 mg/dL (8.4-10.2); Carbon Dioxide 34 mmol/L (22-30); Chloride 103 mmol/L (98-107); Estimated CRCL calculation 105 ml/min; Estimated Glomerular Filt Rate > 60; Glucose 139 mg/dL (65-110); Magnesium 1.9 mg/dL (1.6-2.3); Potassium 3.9 mmol/L (3.4-5.0); Sodium 139 mmol/L (137-145)
[2022-07-21] VITALS (33 sets, daily range): BP systolic 95–156; BP diastolic 69–87; PULSE 66–109; RESP 14–28; TEMP 36.4–37.1; O2SAT 90–98; BMI 24.3
[2022-07-21] MEDS: dexmedeTOMIDine 400 MCG/100 ML 400 MCG/100 ML BAG IV CONT (00:20)
[2022-07-21] MEDS: PIPERACILLN/TAZ 3.375GM/NS50ML 3.375 GM/50 ML BAG IVPB ×5 (00:23→22:13)
[2022-07-21] MEDS: IPRATROPIUM BR 0.02% INH SOLN 0.5 MG/2.5 ML VIAL INHALATION ×4 (02:10→20:15)
[2022-07-21] MEDS: LEVALBUTEROL NEB 1.25 MG/3 ML 0.63 MG INHALATION ×4 (02:10→20:14)
[2022-07-21 04:34] LABS: Hematocrit 30.4 % (37.0-47.0); Hemoglobin 9.3 g/dL (12.0-15.0); Mean Corpuscular HGB Conc 30.6 g/dl (32-36); Mean Corpuscular Hemoglobin 28.9 pg (26-34); Mean Corpuscular Volume 94.4 fl (80-100); Mean Platelet Volume 9.9 fl (7.4-10.4); Platelet Count Result 345 k/mm3 (150-375); Red Blood Count 3.22 M/mm3 (4.2-5.4); Red Cell Distribution Width 16.2 % (11.5-14.5); White Blood Count 6.7 K/mm3 (4.5-10.0)
[2022-07-21 04:48] LABS: Alanine Aminotransferase 19 U/L (6-35); Albumin Level 2.7 g/dL (3.5-5.1); Alkaline Phosphatase 73 U/L (38-126); Anion Gap 3 mmol/L (8-16); Aspartate Amino Transferase 22 U/L (14-36); Bilirubin,Total 0.6 mg/dL (0.2-1.3); Blood Urea Nitrogen 12 mg/dL (7-17); Calcium 8.2 mg/dL (8.4-10.2); Carbon Dioxide 33 mmol/L (22-30); Chloride 103 mmol/L (98-107); Estimated CRCL calculation 105 ml/min; Estimated Glomerular Filt Rate > 60; Glucose 157 mg/dL (65-110); Phosphorus 3.1 mg/dL (2.5-4.5); Potassium 3.9 mmol/L (3.4-5.0); Sodium 139 mmol/L (137-145)
[2022-07-21 05:34] LABS: Alveolar/Arterial O2 Gradient 131.4 mmHg; Base Excess ABG 6.4 mEq/l (+/-2.0); Carboxyhemoglobin 0.3 % THb (0-2.0); Device VENTILATOR; Fractional Inspired Oxygen 40 %; HCO3 ABG 31.4 mEq/l (22.0-26.0); Methemoglobin ABG 0.3 %THb (0-1.5); Oxygen Content ABG 16.7 %vol (16.0-22.0); Oxygen Saturation ABG 97.7 % (95.0-100.0); Oxyhemoglobin 96.6 % THb (90.0-100.0); PCO2 ABG 46.7 mmHg (35.0-45.0); PO2 ABG 100.1 mmHg (80.0-100.0); Reduced Hemoglobin 2.8 %THb (0-5.0); Site Drawn RIGHT BRACHIAL; Total Hemoglobin 12.2 g/dL (12.0-18.0); pH ABG 7.445 (7.350-7.450)
[2022-07-21 05:35] LABS: Arterial Blood Gas PEEP 5 cmH2O; Arterial Blood Gas Tidal Volume 350 ml; Arterial Blood Gas Vent Mode CMV; Arterial Blood Gas Ventilator rate 14 /MIN
[2022-07-21] MEDS: CENTRAL LINE FLUSH 10 ML IV PUSH ×4 (06:26→21:45)
[2022-07-21] MEDS: BUDESONIDE RESPULE NEB 0.5 MG/2 ML AMP INHALATION ×2 (08:11→20:14)
[2022-07-21] MEDS: MINERAL OIL/WHITE PETROLATUM OINTMENT 1 APPLIC EACH EYE (08:23)
[2022-07-21] MEDS: DOCUSATE SODIUM LIQ 100 MG/10 ML UDC PO (08:23)
[2022-07-21] MEDS: FONDAPARINUX SODIUM 2.5 MG/0.5 ML SYRINGE SUB-Q (08:23)
[2022-07-21] MEDS: levETIRAcetam Tablet 250 MG, levETIRAcetam Tablet 500 MG 750 MG PO ×2 (08:23→21:44)
[2022-07-21] MEDS: PANTOPRAZOLE SODIUM IV 40 MG VIAL IV PUSH ×2 (08:23→21:44)
[2022-07-21] MEDS: FUROSEMIDE INJ 40 MG/4 ML VIAL 20 MG IV PUSH (08:27)
--- NOTE | 2022-07-21 09:10 | WPDCNINT ---
Senior Sous Chef Consult Note Consult date: 07/21/22 HPI: Gabriela Aguayo is a 76 year old female [facility] Social History Social History Smoking status: Unknown if ever smoked Alcohol intake: unknown Substance use: unknown Spiritual care concerns: No Meds Home Medications and Allergies Home Medications Medication Instructions Recorded Confirmed Type acetaminophen 325 mg capsule 650 mg PO Q6-8H PRN Pain 07/17/22 07/17/22 History amlodipine 10 mg tablet 10 mg DAILY 07/17/22 07/17/22 History famotidine 20 mg tablet 20 mg PO BID 07/17/22 07/17/22 History hydrochlorothiazide 25 mg tablet 25 mg PO DAILY 07/17/22 07/17/22 History ipratropium 0.5 mg-albuterol 3 mg 1 ml Q6H PRN Shortness Of Breath 07/17/22 07/17/22 History (2.5 mg base)/3 mL nebulization soln levetiracetam 750 mg tablet 750 mg PO BID 07/17/22 07/17/22 History losartan 50 mg tablet 50 mg PO DAILY 07/17/22 07/17/22 History metoprolol tartrate 50 mg tablet 50 mg PO BID 07/17/22 07/17/22 History mirtazapine 7.5 mg tablet 7.5 mg PO HS 07/17/22 07/17/22 History Allergies Allergy/AdvReac Type Severity Reaction Status Date / Time heparin (porcine) Allergy Unknown Verified 07/17/22 02:44 Vital Signs Vital Signs - 24 hr 07/20/22 10:37 07/20/22 10:00 07/20/22 10:00 Temperature Pulse Rate 75 62 62 Respiratory Rate 18 18 Blood Pressure 130/79 Pulse Oximetry 97 97 Oxygen Delivery Mechanical Ventilation Fraction of Inspired Oxygen 40 07/20/22 10:00 07/20/22 09:30 07/20/22 13:31 Temperature Pulse Rate 62 77 Respiratory Rate 16 Blood Pressure Pulse Oximetry Oxygen Delivery Fraction of Inspired Oxygen 40 07/20/22 13:36 07/20/22 13:38 07/20/22 12:00 Temperature Pulse Rate 80 80 62 Respiratory Rate 17 Blood Pressure Pulse Oximetry 97 Oxygen Delivery Mechanical Ventilation Fraction of Inspired Oxygen 40 07/20/22 12:00 07/20/22 12:00 07/20/22 12:00 Temperature 36.3 C L Pulse Rate 62 Respiratory Rate 24 H Blood Pressure 124/78 Pulse Oximetry 97 97 Oxygen Delivery Mechanical Ventilation Fraction of Inspired Oxygen 40 40 07/20/22 12:00 07/20/22 14:00 07/20/22 14:00 Temperature Pulse Rate 62 85 85 Respiratory Rate 24 H 18 Blood Pressure 111/75 Pulse Oximetry 96 Oxygen Delivery Fraction of Inspired Oxygen 07/20/22 14:00 07/20/22 17:08 07/20/22 16:00 Temperature 36.6 C Pulse Rate 85 69 70 Respiratory Rate 18 18 16 Blood Pressure 110/77 Pulse Oximetry 96 Oxygen Delivery Fraction of Inspired Oxygen 07/20/22 16:00 07/20/22 16:00 07/20/22 17:07 Temperature Pulse Rate 69 Respiratory Rate Blood Pressure Pulse Oximetry 97 97 Oxygen Delivery Mechanical Ventilation Mechanical Ventilation Fraction of Inspired Oxygen 40 40 40 07/20/22 16:00 07/20/22 18:00 07/20/22 18:00 Temperature Pulse Rate 70 77 77 Respiratory Rate 14 Blood Pressure 102/70 Pulse Oximetry 96 Oxygen Delivery Fraction of Inspired Oxygen 07/20/22 19:57 07/20/22 19:57 07/20/22 20:00 Temperature Pulse Rate 72 69 Respiratory Rate 15 Blood Pressure Pulse Oximetry 97 97 Oxygen Delivery Mechanical Ventilation Mechanical Ventilation Fraction of Inspired Oxygen 40 40 07/20/22 20:00 07/20/22 20:00 07/20/22 20:00 Temperature 36.4 C L Pulse Rate 69 72 Respiratory Rate 17 Blood Pressure 135/82 Pulse Oximetry 97 Oxygen Delivery Fraction of Inspired Oxygen 40 07/20/22 23:18 07/21/22 00:20 07/21/22 00:20 Temperature Pulse Rate 69 81 81 Respiratory Rate 16 16 Blood Pressure Pulse Oximetry 96 Oxygen Delivery Mechanical Ventilation Fraction of Inspired Oxygen 40 07/20/22 22:00 07/21/22 00:00 07/21/22 00:00 Temperature 36.4 C Pulse Rate 81 86 86 Respiratory Rate 18 Blood Pressure 132/84 Pulse Oximetry 98 Oxygen De
--- NOTE | 2022-07-21 09:10 | WPDINTPN ---
Progress Note: A&P Assessment and Plan (1) Acute hypercapnic respiratory failure: Code(s): J96.02 - Acute respiratory failure with hypercapnia Status: Acute Assessment and Plan: Hypercapnic respiratory failure likely related to pneumonia, COPD exacerbation -intubated on 07/17/2022 -PSV trial yesterday morning but patient immediately failed due tidal volumes in the range of 100s mL. I increased pressure support to 12/5 and continue as tolerated - 07/20 on PSV 5/5 patient rate was close to 30 and tidal volumes low 200s. I increased pressure support to 10/5 will continue as tolerated. Patient is doing slightly better but not good enough to be extubated. - 07/21 placed on pressure support of 10/5 to achieve adequate RSBI. Will continue PSV and try to wean down pressure support -patient has been trached in the past hence will be difficult weaning -most recent chest x-ray reviewed -most recent ABGs reviewed, current tidal volume is at 350 mL -continue Zosyn and azithromycin (07/17). Discontinued vancomycin as cultures and MRSA screen has been negative -will continue bronchodilators and Pulmicort -currently on low-dose Precedex for comfort and light sedation -Lasix IV x 1 today. Off IV fluids -07/17 CTA chest showed no pulmonary embolism, small to moderate right pleural effusion with probable right lower lobe pneumonia. Severe emphysema bilaterally. Small left pleural effusion with probable dependent left basilar atelectatic change (2) Septic shock: Code(s): A41.9 - Sepsis, unspecified organism; R65.21 - Severe sepsis with septic shock Status: Acute Assessment and Plan: Likely related to pneumonia, hypercapnic respiratory failure -continue antibiotics as above -07/17/2022 blood cultures have been obtained and negative till now -07/17/2022 MRSA screen was negative -07/17/2022 sputum cultures have been ordered negative till now -Levophed weaned off. will maintain MAP > 65 mmHg at all times for adequate end organ perfusion -lactic acid is in normal limits -hold further IV fluids. -Lasix IV x1 today (3) Pneumonia: Code(s): J18.9 - Pneumonia, unspecified organism Status: Acute Assessment and Plan: Right lower lobe pneumonia seen on CTA chest -continue antibiotics as above (4) Acute UTI: Code(s): N39.0 - Urinary tract infection, site not specified Status: Acute Assessment and Plan: UA was positive for leukocyte esterase, continue antibiotics as above, urine cultures was negative (5) Seizures: Code(s): R56.9 - Unspecified convulsions Status: Acute Assessment and Plan: Patient is on Keppra at home for seizures, will continue (6) COPD (chronic obstructive pulmonary disease): Code(s): J44.9 - Chronic obstructive pulmonary disease, unspecified Status: Acute Assessment and Plan: History of COPD, continue bronchodilators, mechanical ventilation and antibiotics, -no wheezing noted will avoid steroids at this time (7) GERD (gastroesophageal reflux disease): Code(s): K21.9 - Gastro-esophageal reflux disease without esophagitis Status: Acute Assessment and Plan: History of GERD, continue Protonix (8) Essential hypertension: Code(s): I10 - Essential (primary) hypertension Status: Acute Assessment and Plan: Patient does take antihypertensive medications, will currently on hold Plan DVT prophylaxis: Lovenox SQ Stress ulcer prophylaxis: Protonix Nutrition: Continue tube feeds per PEG tube Code Status: Full code Critical Care Time Spent: 31 minutes Due to a high probability of clinically significant, life threatening deterioration, the patient required my highest level of preparedness to intervene emergently and I personally spent this critical care time directly and personally managing the patient. This critical care time included obtaining a history; examining the patient; pulse oximetry; ordering and
--- NOTE | 2022-07-21 10:54 | PCNFU ---
Nutrition Follow-Up Complete: Inadequate energy intake related to mechanical ventilation as evidenced by NPO status Goal: Meet estimated needs Patient will continue current goal. Pt current nutrition is Vital AF 1.2 at 45 ml/hr. Last recorded weight is 64.4 kg. Bowel Motility:+ BM reported 07/20 Labs Reviewed:Glu 157, Cr 0.3, Alb 2.7,Hct 30.4,Hgb 9.3 Meds Noted:Miralax, Zosyn,Protonix, Precedex Skin: WNL Additional Notes: Patient remains on mechanical vent and tube feedings of Vital AF 1.2 at 45 ml/hr and tolerating per nursing. Tube feedings providing 1188 kcals/74 gms protein. Agree with diet orders. Monitor for tube feeding start, tolerance, wt, labs. Follow up every Sunday/Sunday and round daily in ICU.
[2022-07-21 11:23] LABS: Alveolar/Arterial O2 Gradient 79.5 mmHg; Base Excess ABG 6.9 mEq/l (+/-2.0); Fractional Inspired Oxygen 30 %; HCO3 ABG 31.6 mEq/l (22.0-26.0); Oxygen Saturation ABG 96.4 % (95.0-100.0); PCO2 ABG 45.4 mmHg (35.0-45.0); PO2 ABG 81.1 mmHg (80.0-100.0); Total Hemoglobin 11.9 g/dL (12.0-18.0)
[2022-07-21 11:24] LABS: Modified Allen's Test Pass; Site Drawn RIGHT BRACHIAL
[2022-07-21 11:25] LABS: CPAP 5 cmH2O; Device CPAP
--- NOTE | 2022-07-21 14:13 | PM.IMPN ---
Progress Note: A&P Assessment and Plan (1) Acute hypercapnic respiratory failure: Code(s): J96.02 - Acute respiratory failure with hypercapnia Status: Acute Assessment and Plan: Hypercapnic respiratory failure likely related to pneumonia, COPD exacerbation -intubated on 07/17/2022 -continue Zosyn and vancomycin -will continue bronchodilators and Pulmicort 07/21/2022 interval history:? Patient with hypercarbic respiratory failure on ventilator secondary to exacerbation of COPD and pneumonia, patient is being treated with azithromycin Zosyn and vancomycin, patient MRSA is negative, stopped vancomycin, as well as bronchodilator, patient seen by technical business systems analyst and again today was given trial of weaning off the ventilator but patient was not able to tolerate, patient had trached in the past technical business systems analyst concern it will be difficult to wean patient off the ventilator, will continue to monitor (2) Septic shock: Code(s): A41.9 - Sepsis, unspecified organism; R65.21 - Severe sepsis with septic shock Status: Acute Assessment and Plan: Likely related to pneumonia, hypercapnic respiratory failure -continue antibiotics as above (3) Pneumonia: Code(s): J18.9 - Pneumonia, unspecified organism Status: Acute Assessment and Plan: Right lower lobe pneumonia seen on CTA chest -continue antibiotics as above (4) Acute UTI: Code(s): N39.0 - Urinary tract infection, site not specified Status: Acute Assessment and Plan: UA was positive for leukocyte esterase, continue antibiotics as above, urine cultures have been obtained and pending (5) Seizures: Code(s): R56.9 - Unspecified convulsions Status: Acute Assessment and Plan: Patient is on Keppra at home for seizures, will continue (6) COPD (chronic obstructive pulmonary disease): Code(s): J44.9 - Chronic obstructive pulmonary disease, unspecified Status: Acute Assessment and Plan: History of COPD, continue bronchodilators, mechanical ventilation and antibiotics, (7) GERD (gastroesophageal reflux disease): Code(s): K21.9 - Gastro-esophageal reflux disease without esophagitis Status: Acute Assessment and Plan: History of GERD, will start on Protonix (8) Essential hypertension: Code(s): I10 - Essential (primary) hypertension Status: Acute Assessment and Plan: Patient does take antihypertensive medications, will currently hold place them on hold due to patient being on pressors Subjective Date/time seen: 07/21/22 14:13 07/21/2022 interval history:? Patient with hypercarbic respiratory failure on ventilator secondary to exacerbation of COPD and pneumonia, patient is being treated with azithromycin Zosyn and vancomycin, patient MRSA is negative, stopped vancomycin, as well as bronchodilator, patient seen by technical business systems analyst and again today was given trial of weaning off the ventilator but patient was not able to tolerate, patient had trached in the past technical business systems analyst concern it will be difficult to wean patient off the ventilator, will continue to monitor Objective Data Vital Signs Vital Signs: Vital Signs - 24 hr 07/20/22 17:08 07/20/22 16:00 07/20/22 16:00 Temperature 97.9 F Pulse Rate 69 70 Respiratory Rate 18 16 Blood Pressure 110/77 Pulse Oximetry 96 97 Oxygen Delivery Mechanical Ventilation Oxygen Flow Rate Fraction of Inspired Oxygen 40 07/20/22 16:00 07/20/22 17:07 07/20/22 16:00 Temperature Pulse Rate 69 70 Respiratory Rate Blood Pressure Pulse Oximetry 97 Oxygen Delivery Mechanical Ventilation Oxygen Flow Rate Fraction of Inspired Oxygen 40 40 07/20/22 18:00 07/20/22 18:00 07/20/22 19:57 Temperature Pulse Rate 77 77 72 Respiratory Rate 14 15 Blood Pressure 102/70 Pulse Oximetry 96 Oxygen Delivery Oxygen Flow Rate Fraction of Inspired Oxygen 07/20/22 19:57 07/20/22 20:00 0
[2022-07-22] VITALS (40 sets, daily range): BP systolic 138–170; BP diastolic 80–99; PULSE 89–117; RESP 14–31; TEMP 36.6–37.2; O2SAT 93–100
[2022-07-22] MEDS: IPRATROPIUM BR 0.02% INH SOLN 0.5 MG/2.5 ML VIAL INHALATION ×4 (02:15→20:35)
[2022-07-22] MEDS: LEVALBUTEROL NEB 1.25 MG/3 ML 0.63 MG INHALATION ×4 (02:15→20:04)
[2022-07-22 05:32] LABS: Alveolar/Arterial O2 Gradient 61.6 mmHg; Base Excess ABG 8.8 mEq/l (+/-2.0); Carboxyhemoglobin 0.5 % THb (0-2.0); Device NASAL CANNULA; Fractional Inspired Oxygen 25 %; HCO3 ABG 33.9 mEq/l (22.0-26.0); Methemoglobin ABG 0.2 %THb (0-1.5); Oxygen Content ABG 14.2 %vol (16.0-22.0); Oxygen Saturation ABG 91.2 % (95.0-100.0); Oxyhemoglobin 89.1 % THb (90.0-100.0); PCO2 ABG 49.1 mmHg (35.0-45.0); PO2 ABG 58.3 mmHg (80.0-100.0); PO2 FiO2 Ratio Arterial Blood 2.33 %; Reduced Hemoglobin 10.2 %THb (0-5.0); Site Drawn RIGHT BRACHIAL; Total Hemoglobin 11.3 g/dL (12.0-18.0); pH ABG 7.457 (7.350-7.450)
[2022-07-22] MEDS: PIPERACILLN/TAZ 3.375GM/NS50ML 3.375 GM/50 ML BAG IVPB ×4 (05:58→23:53)
[2022-07-22] MEDS: CENTRAL LINE FLUSH 10 ML IV PUSH ×4 (05:59→21:11)
[2022-07-22 06:29] LABS: Hematocrit 32.9 % (37.0-47.0); Hemoglobin 10.1 g/dL (12.0-15.0); Mean Corpuscular HGB Conc 30.7 g/dl (32-36); Mean Corpuscular Hemoglobin 29.2 pg (26-34); Mean Corpuscular Volume 95.1 fl (80-100); Mean Platelet Volume 9.7 fl (7.4-10.4); Platelet Count Result 426 k/mm3 (150-375); Red Blood Count 3.46 M/mm3 (4.2-5.4); Red Cell Distribution Width 16.3 % (11.5-14.5); White Blood Count 7.1 K/mm3 (4.5-10.0)
[2022-07-22 06:41] LABS: Alanine Aminotransferase 19 U/L (6-35); Albumin Level 3.2 g/dL (3.5-5.1); Alkaline Phosphatase 89 U/L (38-126); Anion Gap 3 mmol/L (8-16); Aspartate Amino Transferase 25 U/L (14-36); Bilirubin,Total 0.6 mg/dL (0.2-1.3); Blood Urea Nitrogen 9 mg/dL (7-17); Calcium 8.4 mg/dL (8.4-10.2); Carbon Dioxide 36 mmol/L (22-30); Chloride 102 mmol/L (98-107); Estimated CRCL calculation 105 ml/min; Estimated Glomerular Filt Rate > 60; Glucose 148 mg/dL (65-110); Magnesium 2.1 mg/dL (1.6-2.3); Phosphorus 3.1 mg/dL (2.5-4.5); Potassium 3.6 mmol/L (3.4-5.0); Sodium 141 mmol/L (137-145)
--- NOTE | 2022-07-22 06:41 | PCRCNOTE ---
Patient unable to go on bipap last night due to being nauseous. Patient semi confused, therefore would not be able to remove mask if she were to vomit.
[2022-07-22] MEDS: BUDESONIDE RESPULE NEB 0.5 MG/2 ML AMP INHALATION (07:05)
--- NOTE | 2022-07-22 09:00 | WPDINTPN ---
Progress Note: A&P Assessment and Plan (1) Acute hypercapnic respiratory failure: Code(s): J96.02 - Acute respiratory failure with hypercapnia Status: Acute Assessment and Plan: 07/21 extubated after a successful weaning trial Continue nasal cannula Continue BiPAP p.r.n. and at night. Emphasize importance of using BiPAP at this time to the patient Bronchodilators Continue course of antibiotics for the pneumonia with Zosyn azithromycin (2) Septic shock: Code(s): A41.9 - Sepsis, unspecified organism; R65.21 - Severe sepsis with septic shock Status: Acute Assessment and Plan: Off IV fluid and Levophed at this time (3) Pneumonia: Code(s): J18.9 - Pneumonia, unspecified organism Status: Acute Assessment and Plan: See above (4) Acute UTI: Code(s): N39.0 - Urinary tract infection, site not specified Status: Acute Assessment and Plan: On Zosyn (5) Seizures: Code(s): R56.9 - Unspecified convulsions Status: Acute Assessment and Plan: On cap (6) COPD (chronic obstructive pulmonary disease): Code(s): J44.9 - Chronic obstructive pulmonary disease, unspecified Status: Acute Assessment and Plan: Continue bronchodilator (7) GERD (gastroesophageal reflux disease): Code(s): K21.9 - Gastro-esophageal reflux disease without esophagitis Status: Acute Assessment and Plan: Continue PPI (8) Essential hypertension: Code(s): I10 - Essential (primary) hypertension Status: Acute Assessment and Plan: Blood pressure in controlled range Plan DVT prophylaxis:? Lovenox SQ Stress ulcer prophylaxis:? Protonix Nutrition:? Continue tube feeds per PEG tube Code Status:? Full code Incentive spirometry DC femoral central venous catheter. Patient has poor IV access. Will obtain PICC. Once femoral catheter is removed request PT OT Transfer out of ICU today Subjective Date/time seen: 07/22/22 09:00 Overnight events reviewed. Patient was extubated yesterday after a successful weaning trial She is on 1 L nasal cannula and refused to wear BiPAP overnight. She is afebrile Tolerating tube feeds through PEG tube She continues to be on low-dose Precedex which was restarted yesterday This morning patient is alert awake but not oriented. She denies any complaints at this time. Patient denies fever, chest pain, shortness of breath, cough, nausea vomiting, abdominal pain,, diarrhea, headache or constipation. All other systems were reviewed and were negative Other vitals acceptable Review of Systems Review of Systems: All systems reviewed & are unremarkable except as noted in HPI and below (HPI) Exam Narrative: General: Pt is frail old female who is alert awake but not oriented. In no acute distress Lungs/Chest: Decreased breath sounds bilaterally throughout Cardiac: RRR. Normal S1 S2. No murmurs Circulation: Pedal pulses are intact and symmetrical. Abdomen: Normal bowel sounds.. Soft. NT. ND. Extremities: No clubbing, cyanosis or edema. Warm right femoral central venous catheter : Tam in place Neurologic: Follows commands. Moves all 4 extremities PERRL AO x 0 she knows she is in hospital but does not know which hospital Skin: No Rash Objective Data Vital Signs Vital Signs: Vital Signs - 24 hr 07/21/22 10:00 07/21/22 10:00 07/21/22 10:05 Temperature Pulse Rate 91 91 Respiratory Rate 15 Blood Pressure 95/69 L Pulse Oximetry 94 Oxygen Delivery Mechanical Ventilation Oxygen Flow Rate Fraction of Inspired Oxygen 07/21/22 10:38 07/21/22 11:00 07/21/22 11:44 Temperature Pulse Rate 86 Respiratory Rate 23 H Blood Pressure Pulse Oximetry 93 Oxygen Delivery Nasal Cannula Oxygen Flow Rate 2 Fraction of Inspired Oxygen 07/21/22 11:52 07/21/22 12:00 07/21/22 12:00 Temperature 36.9 C Pulse Rate 85 85 84 Respiratory Rate 17 17 Blo
[2022-07-22] MEDS: DOCUSATE SODIUM LIQ 100 MG/10 ML UDC PO (09:52)
[2022-07-22] MEDS: levETIRAcetam Tablet 250 MG, levETIRAcetam Tablet 500 MG 750 MG PO ×2 (09:52→21:10)
[2022-07-22] MEDS: POTASSIUM CHLORIDE 20 MEQ PACKET (FOR LIQUID) 40 MEQ FEED TUBE (09:52)
[2022-07-22] MEDS: MINERAL OIL/WHITE PETROLATUM OINTMENT 1 APPLIC EACH EYE (09:53)
[2022-07-22] MEDS: PANTOPRAZOLE SODIUM IV 40 MG VIAL IV PUSH ×2 (09:53→21:11)
[2022-07-22] MEDS: FONDAPARINUX SODIUM 2.5 MG/0.5 ML SYRINGE SUB-Q (14:15)
--- NOTE | 2022-07-22 14:53 | PM.IMPN ---
Progress Note: A&P Assessment and Plan (1) Acute hypercapnic respiratory failure: Code(s): J96.02 - Acute respiratory failure with hypercapnia Status: Acute Assessment and Plan: Hypercapnic respiratory failure likely related to pneumonia, COPD exacerbation -intubated on 07/17/2022 -continue Zosyn and vancomycin -will continue bronchodilators and Pulmicort 07/22/2022 interval history:? Patient with hypercarbic respiratory failure on ventilator secondary to exacerbation of COPD and pneumonia, patient is being treated with azithromycin Zosyn and vancomycin, patient MRSA is negative, stopped vancomycin, as well as bronchodilator, patient seen by waste reduction coordinator and again today was given trial of weaning off the ventilator and patient was able to tolerate extubated, patient had trached in the past waste reduction coordinator concern it will be difficult to wean patient off the ventilator, patient is still somnolent unable to provide any review of symptoms, transfer patient out of ICU to IMU will continue to monitor (2) Septic shock: Code(s): A41.9 - Sepsis, unspecified organism; R65.21 - Severe sepsis with septic shock Status: Acute Assessment and Plan: Likely related to pneumonia, hypercapnic respiratory failure -continue antibiotics as above (3) Pneumonia: Code(s): J18.9 - Pneumonia, unspecified organism Status: Acute Assessment and Plan: Right lower lobe pneumonia seen on CTA chest -continue antibiotics as above (4) Acute UTI: Code(s): N39.0 - Urinary tract infection, site not specified Status: Acute Assessment and Plan: UA was positive for leukocyte esterase, continue antibiotics as above, urine cultures have been obtained and pending (5) Seizures: Code(s): R56.9 - Unspecified convulsions Status: Acute Assessment and Plan: Patient is on Keppra at home for seizures, will continue (6) COPD (chronic obstructive pulmonary disease): Code(s): J44.9 - Chronic obstructive pulmonary disease, unspecified Status: Acute Assessment and Plan: History of COPD, continue bronchodilators, mechanical ventilation and antibiotics, (7) GERD (gastroesophageal reflux disease): Code(s): K21.9 - Gastro-esophageal reflux disease without esophagitis Status: Acute Assessment and Plan: History of GERD, will start on Protonix (8) Essential hypertension: Code(s): I10 - Essential (primary) hypertension Status: Acute Assessment and Plan: Patient does take antihypertensive medications, will currently hold place them on hold due to patient being on pressors Subjective Date/time seen: 07/22/22 14:53 Hypercapnic respiratory failure likely related to pneumonia, COPD exacerbation -intubated on 07/17/2022 -continue Zosyn and vancomycin -will continue bronchodilators and Pulmicort 07/22/2022 interval history:? Patient with hypercarbic respiratory failure on ventilator secondary to exacerbation of COPD and pneumonia, patient is being treated with azithromycin Zosyn and vancomycin, patient MRSA is negative, stopped vancomycin, as well as bronchodilator, patient seen by waste reduction coordinator and again today was given trial of weaning off the ventilator and patient was able to tolerate extubated, patient had trached in the past waste reduction coordinator concern it will be difficult to wean patient off the ventilator, patient is still somnolent unable to provide any review of symptoms, transfer patient out of ICU to IMU will continue to monitor Exam Narrative: Patient is comfortable, NAD HEENT: Eyes are clear nonicteric LUNGS: Normal respiratory effort HEART: RR S1S2 ABD: Not distended Lower extremities: no edema SKIN: nonjaundiced Neuro: Somnolent Objective Data Vital Signs Vital Signs: Vital Signs - 24 hr 07/21/22 15:09 07/21/22 16:00 07/21/22 16:00 Temperature 98.4 F Pulse Rate 77 100 101 H Respiratory Rate 24 H 21 H Blood Pressure 1
[2022-07-22] MEDS: METOPROLOL TARTRATE 50 MG TAB PO (21:09)
[2022-07-22] MEDS: FAMOTIDINE 20 MG TABLET PO (21:10)
[2022-07-22] MEDS: MIRTAZAPINE 7.5 MG TABLET PO (21:10)
[2022-07-23] VITALS (18 sets, daily range): BP systolic 124–182; BP diastolic 82–103; PULSE 87–107; RESP 14–31; TEMP 36.7–37.2; O2SAT 96–100
[2022-07-23] MEDS: LEVALBUTEROL NEB 1.25 MG/3 ML 0.63 MG INHALATION ×4 (02:12→20:29)
[2022-07-23] MEDS: IPRATROPIUM BR 0.02% INH SOLN 0.5 MG/2.5 ML VIAL INHALATION ×4 (02:13→20:30)
[2022-07-23 04:49] LABS: Alveolar/Arterial O2 Gradient 46.8 mmHg; Base Excess ABG 5.9 mEq/l (+/-2.0); Carboxyhemoglobin 0.3 % THb (0-2.0); Fractional Inspired Oxygen 24 %; Methemoglobin ABG 0.3 %THb (0-1.5); Oxygen Content ABG 14.2 %vol (16.0-22.0); Oxygen Saturation ABG 93.9 % (95.0-100.0); PCO2 ABG 47.5 mmHg (35.0-45.0); PO2 ABG 67.8 mmHg (80.0-100.0); PO2 FiO2 Ratio Arterial Blood 2.83 %; Reduced Hemoglobin 7.4 %THb (0-5.0); Total Hemoglobin 10.9 g/dL (12.0-18.0); pH ABG 7.432 (7.350-7.450)
[2022-07-23 04:50] LABS: Device NASAL CANNULA; Modified Allen's Test Pass; Site Drawn RIGHT RADIAL
[2022-07-23] MEDS: PIPERACILLN/TAZ 3.375GM/NS50ML 3.375 GM/50 ML BAG IVPB ×4 (05:22→22:53)
[2022-07-23] MEDS: CENTRAL LINE FLUSH 10 ML IV PUSH ×4 (05:22→20:26)
[2022-07-23 05:51] LABS: Hematocrit 32.2 % (37.0-47.0); Hemoglobin 9.9 g/dL (12.0-15.0); Mean Corpuscular HGB Conc 30.7 g/dl (32-36); Mean Corpuscular Volume 97.6 fl (80-100); Mean Platelet Volume 9.7 fl (7.4-10.4); Platelet Count Result 410 k/mm3 (150-375); White Blood Count 6.1 K/mm3 (4.5-10.0)
[2022-07-23 07:15] LABS: Alanine Aminotransferase 19 U/L (6-35); Albumin Level 3.3 g/dL (3.5-5.1); Alkaline Phosphatase 89 U/L (38-126); Anion Gap 7 mmol/L (8-16); Aspartate Amino Transferase 26 U/L (14-36); Bilirubin,Total 0.7 mg/dL (0.2-1.3); Blood Urea Nitrogen 10 mg/dL (7-17); Calcium 8.8 mg/dL (8.4-10.2); Carbon Dioxide 30 mmol/L (22-30); Chloride 104 mmol/L (98-107); Estimated CRCL calculation 105 ml/min; Estimated Glomerular Filt Rate > 60; Glucose 116 mg/dL (65-110); Magnesium 2.2 mg/dL (1.6-2.3); Potassium 4.2 mmol/L (3.4-5.0); Sodium 141 mmol/L (137-145)
[2022-07-23] MEDS: FAMOTIDINE 20 MG TABLET PO (09:21)
[2022-07-23] MEDS: amLODIPine BESYLATE 5 MG TABLET 10 MG BY MOUTH (09:21)
[2022-07-23] MEDS: METOPROLOL TARTRATE 50 MG TAB PO (09:21)
[2022-07-23] MEDS: LOSARTAN POTASSIUM 50 MG TABLET PO (09:21)
[2022-07-23] MEDS: hydroCHLOROthiazide 25 MG TABLET PO (09:21)
[2022-07-23] MEDS: FONDAPARINUX SODIUM 2.5 MG/0.5 ML SYRINGE SUB-Q (09:22)
[2022-07-23] MEDS: levETIRAcetam Tablet 250 MG, levETIRAcetam Tablet 500 MG 750 MG PO (09:23)
[2022-07-23] MEDS: PANTOPRAZOLE SODIUM IV 40 MG VIAL IV PUSH ×2 (09:23→20:26)
[2022-07-23] MEDS: ACETAMINOPHEN 325 MG TABLET 650 MG PO (13:25)
--- NOTE | 2022-07-23 15:20 | PM.IMPN ---
Progress Note: A&P Assessment and Plan (1) Acute hypercapnic respiratory failure: Code(s): J96.02 - Acute respiratory failure with hypercapnia Status: Acute Assessment and Plan: Hypercapnic respiratory failure likely related to pneumonia, COPD exacerbation -intubated on 07/17/2022 -continue Zosyn and vancomycin -will continue bronchodilators and Pulmicort 07/23/2022 interval history:? Patient with hypercarbic respiratory failure on ventilator secondary to exacerbation of COPD and pneumonia, patient is being treated with azithromycin Zosyn and vancomycin, patient MRSA is negative, stopped vancomycin, tomorrow patient will complete 7 day course of Zosyn, as well as bronchodilator, patient seen by community director and again on 07/22 was given trial of weaning off the ventilator and patient was able to tolerate was extubated, patient had trached in the past community director concern it will be difficult to wean patient off the ventilator, today we have resumed patient's home medication and will monitor, patient is still somnolent unable to provide any review of symptoms, today patient is sitting in the chair with assistance of physical therapy due to history of CVA patient has difficulty participating physical therapy. (2) Septic shock: Code(s): A41.9 - Sepsis, unspecified organism; R65.21 - Severe sepsis with septic shock Status: Acute Assessment and Plan: Likely related to pneumonia, hypercapnic respiratory failure -continue antibiotics as above (3) Pneumonia: Code(s): J18.9 - Pneumonia, unspecified organism Status: Acute Assessment and Plan: Right lower lobe pneumonia seen on CTA chest -continue antibiotics as above (4) Acute UTI: Code(s): N39.0 - Urinary tract infection, site not specified Status: Acute Assessment and Plan: UA was positive for leukocyte esterase, continue antibiotics as above, urine cultures have been obtained and pending (5) Seizures: Code(s): R56.9 - Unspecified convulsions Status: Acute Assessment and Plan: Patient is on Keppra at home for seizures, will continue (6) COPD (chronic obstructive pulmonary disease): Code(s): J44.9 - Chronic obstructive pulmonary disease, unspecified Status: Acute Assessment and Plan: History of COPD, continue bronchodilators, mechanical ventilation and antibiotics, (7) GERD (gastroesophageal reflux disease): Code(s): K21.9 - Gastro-esophageal reflux disease without esophagitis Status: Acute Assessment and Plan: History of GERD, will start on Protonix (8) Essential hypertension: Code(s): I10 - Essential (primary) hypertension Status: Acute Assessment and Plan: Patient does take antihypertensive medications, will currently hold place them on hold due to patient being on pressors Subjective Date/time seen: 07/23/22 15:20 Hypercapnic respiratory failure likely related to pneumonia, COPD exacerbation -intubated on 07/17/2022 -continue Zosyn and vancomycin -will continue bronchodilators and Pulmicort 07/23/2022 interval history:? Patient with hypercarbic respiratory failure on ventilator secondary to exacerbation of COPD and pneumonia, patient is being treated with azithromycin Zosyn and vancomycin, patient MRSA is negative, stopped vancomycin, tomorrow patient will complete 7 day course of Zosyn, as well as bronchodilator, patient seen by community director and again on 07/22 was given trial of weaning off the ventilator and patient was able to tolerate was extubated, patient had trached in the past community director concern it will be difficult to wean patient off the ventilator, today we have resumed patient's home medication and will monitor, patient is still somnolent unable to provide any review of symptoms, today patient is sitting in the chair with assistance of physical therapy due to history of CVA patient has difficulty participating physical therapy.
--- NOTE | 2022-07-23 16:15 | PC.NURSE ---
Received patient from ICU. Patient Alert and talkative, denies pain, family at bedside. VSS om 1LNC, Tam, PEG tube. Will continue to monitor patient Lola Mckeon RN
--- NOTE | 2022-07-23 16:20 | PC.NURSE ---
This patient, Gabriela Aguayo, was transferred to [ [id number]] on 07/23/22 at 1600. Personal belongings sent with patient. Report given to [JANUARY Davila ]. Appropriate documentation sent with patient.
[2022-07-23] MEDS: DOCUSATE SODIUM LIQ 100 MG/10 ML UDC FEED TUBE (20:24)
[2022-07-23] MEDS: levETIRAcetam ORAL SOL 500 MG/5 ML UDC 750 MG FEED TUBE (20:24)
[2022-07-23] MEDS: FAMOTIDINE 20 MG TABLET FEED TUBE (20:25)
[2022-07-23] MEDS: MIRTAZAPINE 7.5 MG TABLET FEED TUBE (20:25)
[2022-07-23] MEDS: METOPROLOL TARTRATE 50 MG TAB FEED TUBE (20:25)
[2022-07-24] VITALS (21 sets, daily range): BP systolic 127–162; BP diastolic 72–90; PULSE 81–113; RESP 14–25; TEMP 36.3–36.9; O2SAT 92–100; BMI 22.6
[2022-07-24] MEDS: LEVALBUTEROL NEB 1.25 MG/3 ML 0.63 MG INHALATION ×4 (02:34→20:45)
[2022-07-24] MEDS: IPRATROPIUM BR 0.02% INH SOLN 0.5 MG/2.5 ML VIAL INHALATION ×4 (02:35→20:45)
[2022-07-24] MEDS: CENTRAL LINE FLUSH 10 ML IV PUSH ×4 (05:29→21:00)
[2022-07-24] MEDS: PIPERACILLN/TAZ 3.375GM/NS50ML 3.375 GM/50 ML BAG IVPB (05:29)
[2022-07-24 05:40] LABS: Hematocrit 34.4 % (37.0-47.0); Hemoglobin 10.4 g/dL (12.0-15.0); Mean Corpuscular HGB Conc 30.2 g/dl (32-36); Mean Corpuscular Volume 95.8 fl (80-100); Mean Platelet Volume 9.2 fl (7.4-10.4); Platelet Count Result 487 k/mm3 (150-375); Red Blood Count 3.59 M/mm3 (4.2-5.4); White Blood Count 5.9 K/mm3 (4.5-10.0)
[2022-07-24] MEDS: levETIRAcetam ORAL SOL 500 MG/5 ML UDC 750 MG FEED TUBE ×2 (08:33→21:00)
[2022-07-24] MEDS: polyethylene glycoL 3350 17 GM POWD.PACK FEED TUBE (08:33)
[2022-07-24] MEDS: LOSARTAN POTASSIUM 50 MG TABLET FEED TUBE (08:34)
[2022-07-24] MEDS: METOPROLOL TARTRATE 50 MG TAB FEED TUBE ×2 (08:34→20:59)
[2022-07-24] MEDS: DOCUSATE SODIUM LIQ 100 MG/10 ML UDC FEED TUBE ×2 (08:34→20:59)
[2022-07-24] MEDS: amLODIPine BESYLATE 5 MG TABLET 10 MG FEED TUBE (08:34)
[2022-07-24] MEDS: FAMOTIDINE 20 MG TABLET FEED TUBE ×2 (08:35→20:59)
[2022-07-24] MEDS: PANTOPRAZOLE SODIUM IV 40 MG VIAL IV PUSH ×2 (08:35→21:00)
[2022-07-24] MEDS: FONDAPARINUX SODIUM 2.5 MG/0.5 ML SYRINGE SUB-Q (08:35)
[2022-07-24] MEDS: hydroCHLOROthiazide 25 MG TABLET FEED TUBE (08:35)
--- NOTE | 2022-07-24 08:38 | PCNFU ---
Nutrition Follow-Up Complete: Inadequate energy intake related to mechanical ventilation as evidenced by NPO status Goal: Meet estimated needs - Goal not being met per PEG tube feeding Pt current nutrition is Vital 1.2 @ 45 ml/h: 118 kcals, 74 g protein. Nutrition recommendation: Change formula to Jevity 1.5 with goal rate 55 ml/h to meet nutrition needs: 1815 kcals (100% EER @goal), 77 g protein, 920 ml free water. Flushes 100 ml q 4 hours for total water 1520 ml/day. Last recorded weight is 60 kg. Bowel Motility: Last BM 07/22/22 Labs Reviewed: 07/23/22: Hgb 10.4, Hct 34.4, Alb 3.3, Cre 0.3 Meds Noted: Hydrochlorothiazide, mirtazapine, protonix, colace, miralax, zosyn Skin: WNL Additional Notes: Extubated over the weekend. Recommend changing to standard formula. Discussed with RN and MD. Tolerating feedings well. Monitor for tube feeding tolerance, wt, labs. Follow up every Sunday/Sunday.
[2022-07-24 09:17] LABS: Alanine Aminotransferase 20 U/L (6-35); Albumin Level 3.3 g/dL (3.5-5.1); Alkaline Phosphatase 81 U/L (38-126); Anion Gap 6 mmol/L (8-16); Aspartate Amino Transferase 35 U/L (14-36); Bilirubin,Total 0.6 mg/dL (0.2-1.3); Blood Urea Nitrogen 14 mg/dL (7-17); Calcium 8.6 mg/dL (8.4-10.2); Carbon Dioxide 32 mmol/L (22-30); Chloride 102 mmol/L (98-107); Estimated CRCL calculation 105 ml/min; Estimated Glomerular Filt Rate > 60; Glucose 141 mg/dL (65-110); Magnesium 2.3 mg/dL (1.6-2.3); Phosphorus 3.1 mg/dL (2.5-4.5); Potassium 3.9 mmol/L (3.4-5.0); Sodium 140 mmol/L (137-145)
--- NOTE | 2022-07-24 12:50 | PM.IMPN ---
Progress Note: A&P Assessment and Plan (1) Acute hypercapnic respiratory failure: Code(s): J96.02 - Acute respiratory failure with hypercapnia Status: Acute Assessment and Plan: Hypercapnic respiratory failure likely related to pneumonia, COPD exacerbation -intubated on 07/17/2022 -continue Zosyn and vancomycin -will continue bronchodilators and Pulmicort 07/24/2022 interval history:? Patient with hypercarbic respiratory failure on ventilator secondary to exacerbation of COPD and pneumonia, patient was treated with azithromycin Zosyn and vancomycin, patient MRSA is negative, stopped vancomycin, and today patient will complete 7 day course of Zosyn and will stopped the abx, as well as bronchodilator, patient was seen by gaming floor supervisor and again on 07/22 was given trial of weaning off the ventilator and patient was able to tolerate was extubated, patient had trached in the past gaming floor supervisor was concerned it will be difficult to wean patient off the ventilator, on 07/23 we have resumed patient's home medication and her HR and BP are trending down, will monitor, patient is still somnolent unable to provide any review of symptoms, on 07/23 patient was sitting in the chair with assistance of physical therapy due to history of CVA patient has difficulty participating physical therapy. patient needs help with her ADLs, will discuss with SW for discharge planning. (2) Septic shock: Code(s): A41.9 - Sepsis, unspecified organism; R65.21 - Severe sepsis with septic shock Status: Acute Assessment and Plan: Likely related to pneumonia, hypercapnic respiratory failure -continue antibiotics as above (3) Pneumonia: Code(s): J18.9 - Pneumonia, unspecified organism Status: Acute Assessment and Plan: Right lower lobe pneumonia seen on CTA chest -continue antibiotics as above (4) Acute UTI: Code(s): N39.0 - Urinary tract infection, site not specified Status: Acute Assessment and Plan: UA was positive for leukocyte esterase, continue antibiotics as above, urine cultures have been obtained and pending (5) Seizures: Code(s): R56.9 - Unspecified convulsions Status: Acute Assessment and Plan: Patient is on Keppra at home for seizures, will continue (6) COPD (chronic obstructive pulmonary disease): Code(s): J44.9 - Chronic obstructive pulmonary disease, unspecified Status: Acute Assessment and Plan: History of COPD, continue bronchodilators, mechanical ventilation and antibiotics, (7) GERD (gastroesophageal reflux disease): Code(s): K21.9 - Gastro-esophageal reflux disease without esophagitis Status: Acute Assessment and Plan: History of GERD, will start on Protonix (8) Essential hypertension: Code(s): I10 - Essential (primary) hypertension Status: Acute Assessment and Plan: Patient does take antihypertensive medications, will currently hold place them on hold due to patient being on pressors Subjective Date/time seen: 07/24/22 12:50 Hypercapnic respiratory failure likely related to pneumonia, COPD exacerbation -intubated on 07/17/2022 -continue Zosyn and vancomycin -will continue bronchodilators and Pulmicort 07/24/2022 interval history:? Patient with hypercarbic respiratory failure on ventilator secondary to exacerbation of COPD and pneumonia, patient was treated with azithromycin Zosyn and vancomycin, patient MRSA is negative, stopped vancomycin, and today patient will complete 7 day course of Zosyn and will stopped the abx, as well as bronchodilator, patient was seen by gaming floor supervisor and again on 07/22 was given trial of weaning off the ventilator and patient was able to tolerate was extubated, patient had trached in the past gaming floor supervisor was concerned it will be difficult to wean patient off the ventilator, on 07/23 we have resumed patient's home medication and her HR and BP are trending down, will monitor, patie
[2022-07-24] MEDS: ACETAMINOPHEN ELIXIR 325 MG/10.15 ML UDC 650 MG FEED TUBE (14:38)
[2022-07-24] MEDS: MIRTAZAPINE 7.5 MG TABLET FEED TUBE (20:59)
[2022-07-25] VITALS (9 sets, daily range): BP systolic 129; BP diastolic 78; PULSE 84–101; RESP 14–22; TEMP 36.9; O2SAT 91–96
[2022-07-25] MEDS: IPRATROPIUM BR 0.02% INH SOLN 0.5 MG/2.5 ML VIAL INHALATION ×2 (02:36→07:45)
[2022-07-25] MEDS: LEVALBUTEROL NEB 1.25 MG/3 ML 0.63 MG INHALATION ×2 (02:37→07:45)
[2022-07-25] MEDS: CENTRAL LINE FLUSH 10 ML IV PUSH (05:32)
[2022-07-25] MEDS: levETIRAcetam ORAL SOL 500 MG/5 ML UDC 750 MG FEED TUBE (09:24)
[2022-07-25] MEDS: LOSARTAN POTASSIUM 50 MG TABLET FEED TUBE (09:25)
[2022-07-25] MEDS: amLODIPine BESYLATE 5 MG TABLET 10 MG FEED TUBE (09:25)
[2022-07-25] MEDS: METOPROLOL TARTRATE 50 MG TAB FEED TUBE (09:25)
[2022-07-25] MEDS: FONDAPARINUX SODIUM 2.5 MG/0.5 ML SYRINGE SUB-Q (09:25)
[2022-07-25] MEDS: PANTOPRAZOLE SODIUM IV 40 MG VIAL IV PUSH (09:25)
[2022-07-25] MEDS: DOCUSATE SODIUM LIQ 100 MG/10 ML UDC FEED TUBE (09:25)
[2022-07-25] MEDS: hydroCHLOROthiazide 25 MG TABLET FEED TUBE (09:26)
[2022-07-25] MEDS: MINERAL OIL/WHITE PETROLATUM OINTMENT 1 APPLIC EACH EYE (09:26)
[2022-07-25] MEDS: FAMOTIDINE 20 MG TABLET FEED TUBE (09:26)
--- NOTE | 2022-07-25 10:02 | PM.DS ---
DS: Admitting Diagnosis Discharge Date 07/25/2022 Admitting Diagnosis Altered mental status and shortness of breath. DS: Discharge Diagnosis Discharge Diagnosis (1) Acute hypercapnic respiratory failure: Code(s): J96.02 - Acute respiratory failure with hypercapnia Status: Acute Assessment and Plan: Hypercapnic respiratory failure likely related to pneumonia, COPD exacerbation -intubated on 07/17/2022 -continue Zosyn and vancomycin -will continue bronchodilators and Pulmicort 07/24/2022 interval history:? Patient with hypercarbic respiratory failure on ventilator secondary to exacerbation of COPD and pneumonia, patient was treated with azithromycin Zosyn and vancomycin, patient MRSA is negative, stopped vancomycin, and today patient will complete 7 day course of Zosyn and will stopped the abx, as well as bronchodilator, patient was seen by ccie and again on 07/22 was given trial of weaning off the ventilator and patient was able to tolerate was extubated, patient had trached in the past ccie was concerned it will be difficult to wean patient off the ventilator, on 07/23 we have resumed patient's home medication and her HR and BP are trending down, will monitor, patient is still somnolent unable to provide any review of symptoms, on 07/23 patient was sitting in the chair with assistance of physical therapy due to history of CVA patient has difficulty participating physical therapy. patient needs help with her ADLs, will discuss with SW for discharge planning. (2) Septic shock: Code(s): A41.9 - Sepsis, unspecified organism; R65.21 - Severe sepsis with septic shock Status: Acute Assessment and Plan: Likely related to pneumonia, hypercapnic respiratory failure -continue antibiotics as above (3) Pneumonia: Code(s): J18.9 - Pneumonia, unspecified organism Status: Acute Assessment and Plan: Right lower lobe pneumonia seen on CTA chest -continue antibiotics as above (4) Acute UTI: Code(s): N39.0 - Urinary tract infection, site not specified Status: Acute Assessment and Plan: UA was positive for leukocyte esterase, continue antibiotics as above, urine cultures have been obtained and pending (5) Seizures: Code(s): R56.9 - Unspecified convulsions Status: Acute Assessment and Plan: Patient is on Keppra at home for seizures, will continue (6) COPD (chronic obstructive pulmonary disease): Code(s): J44.9 - Chronic obstructive pulmonary disease, unspecified Status: Acute Assessment and Plan: History of COPD, continue bronchodilators, mechanical ventilation and antibiotics, (7) GERD (gastroesophageal reflux disease): Code(s): K21.9 - Gastro-esophageal reflux disease without esophagitis Status: Acute Assessment and Plan: History of GERD, will start on Protonix (8) Essential hypertension: Code(s): I10 - Essential (primary) hypertension Status: Acute Assessment and Plan: Patient does take antihypertensive medications, will currently hold place them on hold due to patient being on pressors DS: Summary Hospital Course Reason for hospitalization: Chief Complaint: Patient 76-year-old female who presents the emergency department with chief complaint of altered mental status and shortness of breath.? The patient has prior history of respiratory failure and was admitted in [facility] back in April after she had had COVID and then developed pneumonia.? The patient has had a PEG tube and has been doing tube feeds until fairly recently when they were able to restart oral feeding.? Patient became short of breath this evening and is having worsening shortness of breath EMS was called and the patient was minimally responsive with a respiratory rate in the 40s and 50s.? The patient was started on CPAP Hospital Course: Patient with hypercarbic respiratory failure on ventilator secondary t
--- NOTE | 2022-07-25 10:32 | PCSTNOTE ---
Please refer to the Bedside Swallow Evaluation in the EMR. Please note, silent aspiration cannot be ruled out at bedside.
--- NOTE | 2022-07-25 11:00 | PC.NURSE ---
Daughter called without response. Message left via voicemail regarding ambulance anticipated transport time of 1PM.
--- NOTE | 2022-07-25 11:46 | PCNFU ---
Nutrition Follow-Up Complete: Inadequate energy intake related to mechanical ventilation as evidenced by NPO status Goal:Meet estimated needs. Pt meeting goal via alternative nutrition support Pt current nutrition is tube feedings: Jevity 1.5 @ 55ml/hr. Nutrition recommendation: Continue with current plan of care Last recorded weight is 60 kg. Bowel Motility: + BM 07/22 Labs Reviewed: Hgb:10.4, HCT:34, CR:0.3 Meds Noted: miralox, colace Skin:WNL Additional Notes: Tube feeding changed to jevity 1.5 @ 55 = 1815kcals, 77g protein, 920ml fluid to meet estimated needs. Pt is tolerating well. D/c today. Monitor for tube feeding start, tolerance, wt, labs. Follow up every Sunday/Sunday
[2022-07-25 12:07] LABS: EDCOVIDSCREEN Negative (Negative)
== END 2022-07-25 13:35 | DRG 870 ==
LOC: ANHED 05:51 → ANHICU 06:25 → ANH3MEDSUR 07-23 15:54
PROVIDERS: Internal Medicine; Admitting Provider Internal Medicine; Emergency Provider Emergency Medicine; PCP Internal Medicine; Visit Provider Family Medicine
DX: A41.9 Sepsis, unspecified organism (principal); J96.02 Acute respiratory failure with hypercapnia; R65.21 Severe sepsis with septic shock; J44.1 Chronic obstructive pulmonary disease with (acute) exacerbation; N39.0 Urinary tract infection, site not specified; J44.0 Chronic obstructive pulmonary disease with (acute) lower respiratory infection; J11.89 Influenza due to unidentified influenza virus with other manifestations; R56.9 Unspecified convulsions; K21.9 Gastro-esophageal reflux disease without esophagitis; I10 Essential (primary) hypertension; Z20.822 Contact with and (suspected) exposure to COVID-19
CPT/HCPCS: 31500; 36415; 36556; 36569; 36600; 51702; 70450; 71045; 71275; 72170; 80048; 80053; 80202; 81001; 82274; 82375; 82565; 82805; 83050; 83605; 83735; 83880; 84100; 84145; 84478; 84484; 85025; 85027; 85610; 85730; 87040; 87070; 87081; 87086; 87088; 87205; 87426; 87637; 92610; 93005; 94003; 94640; 96365; 96367; 96368; 96375; 97161; 97165; 99291; A9270; C1751; C9113; C9803; J0330; J0456; J1652; J1940; J2060; J2250; J2543; J2704; J3370; J3480; J7030; J7050; Q9967

== ENCOUNTER 2022-12-30 02:36 | Emergency (ER) | payer MEDICARE, MEDICAID, SELFPAY ==
[2022-12-30] VITALS (24 sets, daily range): BP systolic 102–114; BP diastolic 66–67; PULSE 61–83; RESP 15–27; TEMP 36.1; O2SAT 97–100
--- NOTE | ~2022-12-30 | XR_ITS ---
XR chest 1V portable DATE: 12/30/2022 03:55 INDICATION: Possible aspiration. TECHNIQUE: Portable upright AP chest on 12/30/2022 at 0350 hours COMPARISON: July 23, 2022 portable AP chest at 0513 hours FINDINGS: This is a limited rotated single portable AP view of the chest. There is suggestion of infiltrate and/atelectasis particularly in the left mid and lower lung zones a nd to a lesser extent right lower lung. Mild left pleural effusion. Heart size is likely within normal limits considering magnification associated with the AP projection . There is aortic calcification. Pulmonary vascular and interstitial prominence suggest possible congestive changes. IVC filter is noted at the L2-L3 level approximately. Very prominent diffuse osteopenia. Osteoarthritic change at the glenohumeral joints. Probable bilater al rotator cuff atrophy. Multiple fracture deformities of the thoracic spine. Thoracolumbar levoscoliosis. IMPRESSION: Limited rotated portable study; congestive changes are suggested in addition to left mid and lower lung and right lower lung infiltrate and/atelectasis Reviewed, dictated and finalized at location A. IMPRESSION: Limited rotated portable study; congestive changes are suggested in addition to left mid and lower lung and right lower lung infiltrate and/atelec tasis
--- NOTE | ~2022-12-30 | XR_ITS ---
XR chest 1V portable DATE: 12/30/2022 08:53 INDICATION: Possible aspiration TECHNIQUE: Portable AP chest on 12/30/2022 at 0845 hours COMPARISON: 12/30/2022 portable AP chest at 0350 hours FINDINGS: There are bilateral lower lung infiltrates and/atelectasis, left greater than right. There is mild left pleural effusion. Cardiomegaly. Aortic calcification, ectasia and tortuosity. Pulmonary vascularity appears within normal limits. IVC filter overlies the upper inferior vena cava The L2-3 level. Prominent diffuse osteopenia. Multiple fracture deformities of the thoracic spine. IMPRESSION: Bilateral lower lung infiltrate or atelectasis, left greater than right and mild left ple ural effusion Reviewed, dictated and finalized at location A. IMPRESSION: Bilateral lower lung infiltrate or atelectasis, left greater than r ight and mild left pleural effusion
--- NOTE | 2022-12-30 03:25 | ED.GENADULT ---
HPI - General Adult General Chief complaint: Nausea/Vomiting/Diarrhea <Danny Coleman MD - Last Filed: 12/30/22 06:55> Stated complaint: aspiration pneumonia <Danny Coleman MD - Last Filed: 12/30/22 06:55> Time Seen by Provider: 12/30/22 02:45 <Danny Coleman MD - Last Filed: 12/30/22 06:55> History of Present Illness HPI narrative: this is a 77-year-old detention patient sent for routine evaluation after having a chest x-ray that showed infiltrates concerning for aspiration pneumonia. The patient has no complaints at this time. She is on her home 4 L of oxygen and is saturating 100%. Patient has stroke w/ R sided deficits and gets all of her feeds via G-tube. She has aspirated in the past. <Danny Coleman MD - Last Filed: 12/30/22 06:55> Related Data Home medications: Home Medications Medication Instructions Recorded Confirmed acetaminophen 325 mg capsule 650 mg PO Q6-8H PRN Pain 07/17/22 07/17/22 amlodipine 10 mg tablet 10 mg DAILY 07/17/22 07/17/22 famotidine 20 mg tablet 20 mg PO BID 07/17/22 07/17/22 hydrochlorothiazide 25 mg tablet 25 mg PO DAILY 07/17/22 07/17/22 ipratropium 0.5 mg-albuterol 3 mg 1 ml Q6H PRN Shortness Of Breath 07/17/22 07/17/22 (2.5 mg base)/3 mL nebulization soln levetiracetam 750 mg tablet 750 mg PO BID 07/17/22 07/17/22 losartan 50 mg tablet 50 mg PO DAILY 07/17/22 07/17/22 metoprolol tartrate 50 mg tablet 50 mg PO BID 07/17/22 07/17/22 mirtazapine 7.5 mg tablet 7.5 mg PO HS 07/17/22 07/17/22 <Danny Coleman MD - Last Filed: 12/30/22 06:55> Allergies/adverse reactions: Allergies Allergy/AdvReac Type Severity Reaction Status Date / Time heparin (porcine) Allergy Unknown Verified 12/30/22 02:45 <Danny Coleman MD - Last Filed: 12/30/22 06:55> [facility] Past Medical History Medical History: Medical History Acute hypercapnic respiratory failure Essential hypertension Pneumonia Seizures <Danny Coleman MD - Last Filed: 12/30/22 06:55> Social History Social History: Social History Smoking status: Unknown if ever smoked Alcohol intake: unknown Substance use: unknown Spiritual care concerns: No <Danny Coleman MD - Last Filed: 12/30/22 06:55> Exam Narrative: APPEARANCE: Patient appears chronically unwell but is in no acute distress. She is A&O x2 and in good spirits. Head: atraumatic. EYES: EOMI, NOSE: Atraumatic NECK: Trachea midline RESPIRATORY: No increased rate of breathing , saturating 100% on her home 4 L nasal cannula, scattered crackles in the bases, gurgling in the oropharynx CARDIOVASCULAR: RRR, peripheral edema ABDOMINAL: Non-distended soft nontender no guarding or rebound MUSCULOSKELETAl: No obvious deformities NEURO: Alert. right-sided weakness with contractures SKIN:: Warm, dry. Normal color PSYCHIATRIC: Normal affect <Danny Coleman MD - Last Filed: 12/30/22 06:55> Course Course Emergency Course: Patient resting comfortably. Repeat x-ray performed due to poor quality first x-ray. Patient with some infiltrates which could potentially be aspiration however her blood work all seems to be at its baseline and her oxygenation is normal. We will put her on oral amoxicillin and metronidazole and discharged back to her facility. <Joshua Gomez MD - Last Filed: 12/30/22 09:06> Vital Signs Vital signs: Vital Signs Temperature 97.0 F L 12/30/22 02:36 Respiratory Rate 15 12/30/22 02:36 Blood Pressure 114/66 12/30/22 02:36 Pulse Oximetry 100 12/30/22 02:36 Oxygen Delivery Nasal Cannula 12/30/22 02:36 Oxygen Flow Rate 4 12/30/22 02:36 Temperature 97.0 F L 12/30/22 02:36 Pulse Rate 72 12/30/22 06:45 Respiratory Rate 18 12/30/22 06:45 Blood Pressure 102/67 12/30/22 02:46 Pulse Oximetry 100 12/30/22 02:45 Oxygen Delivery
[2022-12-30 03:50] LABS: Basophils Percent Auto 0.5 % (0.2-1.2); Eosinophils Absolute Auto 0.1 K/mm3 (0-0.3); Eosinophils Percent Auto 1.6 % (0-4.4); Hematocrit 39.2 % (37.0-47.0); Hemoglobin 11.9 g/dL (12.0-15.0); Immature Granulocyte Absolute 0.02 K/mm3 (0.00-0.031); Immature Granulocyte Percent A 0.4 % (0-0.5); Lymphocytes Absolute Auto 1.42 K/mm3 (0.9-3.2); Lymphocytes Percent Auto 25.2 % (18.3-44.2); Mean Corpuscular HGB Conc 30.4 g/dl (32-36); Mean Corpuscular Hemoglobin 29.5 pg (26-34); Mean Platelet Volume 9.4 fl (7.4-10.4); Monocytes Absolute Auto 0.8 K/mm3 (0.1-0.6); Monocytes Percent Auto 14.2 % (2.6-8.5); Neutrophils Absolute Auto 3.3 K/mm3 (1.3-6.7); Neutrophils Percent Auto 58.1 % (45.5-73.1); Platelet Count Result 372 k/mm3 (150-375); Red Blood Count 4.04 M/mm3 (4.2-5.4); Red Cell Distribution Width 14.4 % (11.5-14.5); White Blood Count 5.6 K/mm3 (4.5-10.0)
[2022-12-30 04:01] LABS: Lactic Acid Reflex 1.1 mmol/L (0.7-2.0)
[2022-12-30 04:04] LABS: Blood Urea Nitrogen 25 mg/dL (7-17); Calcium 9.2 mg/dL (8.4-10.2); Carbon Dioxide > 40 mmol/L (22-30); Chloride 91 mmol/L (98-107); Estimated CRCL calculation 85 ml/min; Estimated Glomerular Filt Rate > 60; Glucose 75 mg/dL (65-110); Potassium 4.4 mmol/L (3.4-5.0); Sodium 137 mmol/L (137-145)
[2022-12-30 04:30] LABS: Alveolar/Arterial O2 Gradient < 0.0 mmHg; Base Excess ABG 4.7 mEq/l (+/-2.0); Fractional Inspired Oxygen 21 %; HCO3 ABG 31.1 mEq/l (22.0-26.0); Oxygen Content ABG 15.5 %vol (16.0-22.0); Oxygen Saturation ABG 97.1 % (95.0-100.0); PCO2 ABG 55.2 mmHg (35.0-45.0); PO2 ABG 97.8 mmHg (80.0-100.0); PO2 FiO2 Ratio Arterial Blood 4.66 %; Total Hemoglobin 11.4 g/dL (12.0-18.0); pH ABG 7.369 (7.350-7.450)
[2022-12-30 04:32] LABS: Modified Allen's Test Pass; Site Drawn LEFT RADIAL
[2022-12-30] MEDS: IPRATROPIUM BR 0.02% INH SOLN 0.5 MG/2.5 ML VIAL 1 MG INHALATION (04:38)
[2022-12-30] MEDS: ALBUTEROL SULFATE NEB 2.5 MG/3 ML INH 5 MG INHALATION (04:38)
== END 2022-12-30 09:50 ==
PROVIDERS: Emergency Provider Emergency Medicine; PCP Internal Medicine
DX: J44.9 Chronic obstructive pulmonary disease, unspecified (principal); J69.0 Pneumonitis due to inhalation of food and vomit; I10 Essential (primary) hypertension
CPT/HCPCS: 36415; 36600; 71045; 80048; 82805; 83605; 85025; 94640; 99283

== ENCOUNTER 2023-01-26 17:44 | Inpatient (IN) | payer MEDICARE, MEDICAID, SELFPAY ==
[2023-01-26] VITALS (65 sets, daily range): BP systolic 65–151; BP diastolic 47–85; PULSE 66–90; RESP 10–37; TEMP 36.3; O2SAT 80–100
--- NOTE | ~2023-01-26 | XR_ITS ---
Portable chest x-ray Comparison: 01/30/2023 Clinical History: Pneumonia, pleural effusion Findings: Endotracheal tube is in satisfactory position. Small left pleural effusion is present. The re is extensive hazy and interstitial disease. Cardiomediastinal silhouette is stable. Bones and sof t tissues are unremarkable. Impression: Extensive chronic interstitial disease. Possible superimposed pneumonia or pulmonary edema. Small left pleural effusion. ET tube in place. Reviewed, dictated and finalized at location M. Impression: Extensive chronic interstitial disease. Possible superimposed pneumonia or pulm onary edema. Small left pleural effusion. ET tube in place.
--- NOTE | ~2023-01-26 | XR_ITS ---
EXAMINATION: XR chest port-a-cath/central Exam Date/Time: 02/12/2023 22:33 CDT HISTORY: central line placement Comparison: 02/12/2023. RESULT: Lines, tubes, and devices: New right IJ central line terminating in the distal SVC. Stable endotrach eal and nasogastric tubes. IVC filter. Lungs and pleura: Worsened interstitial opacities. Stable nodular left upper lung opacity, bibasilar airspace disease, and costophrenic angle blunting. Cardiomediastinal silhouette: Stable. Other: No acute osseous or upper abdominal finding. IMPRESSION: New right IJ central line, in good position. Endotracheal and nasogastric tubes remain in stable and good position. Worsening interstitial edema. Reviewed, dictated and finalized at location K.
--- NOTE | ~2023-01-26 | XR_ITS ---
EXAM: XR abdomen gastric tube insert DATE: 02/12/2023 21:54 HISTORY: After intubation to confirm ET placement . COMPARISON: None available. FINDINGS: Interstitial edema. Basilar atelectasis/consolidation and small effusions. IVC filter. NG tube terminating over the gastric bubble. Normal bowel gas pattern. IMPRESSION: NG tube terminates over the stomach. Reviewed, dictated and finalized at location K.
--- NOTE | ~2023-01-26 | CT_ITS ---
EXAMINATION:CT diagnostic chest wo con DATE: 01/31/2023 12:52 INDICATION: Respiratory failure. TECHNIQUE: Computed tomography (CT) of the chest was performed without intravenous contrast. Automate d exposure control and iterative reconstruction technique were employed. The dose-length product (DLP ) was 265.04 mGy-cm. COMPARISON: Chest CT 07/17/2022 FINDINGS: There is severe emphysema. There are airspace opacities in right lower lobe. There are airs pace opacities in left upper lobe and left lower lobe. There are small right and moderate-sized left pleural effusions. The endotracheal tube tip is in expected position in the trachea. The heart size i s normal. No pericardial effusion. There is a gastrostomy tube in expected position. There is a filte r in the inferior vena cava. There is a 12 mm hemorrhagic cyst in right kidney. There are multiple ch ronic vertebral body fractures in the spine. There is severe cervical and thoracic spondylosis. IMPRESSION: 1. Airspace opacities in right lower lobe and left lung, consistent with pneumonia. 2. Small right and moderate-sized left pleural effusions. 3. Severe emphysema. Reviewed, dictated and finalized at location A. IMPRESSION: 1. Airspace opacities in right lower lobe and left lung, consistent with pneumo venancio. 2. Small right and moderate-sized left pleural effusions. 3. Severe emphysema.
--- NOTE | ~2023-01-26 | XR_ITS ---
EXAMINATION: XR chest 1V portable DATE: 02/03/2023 05:19 INDICATION: Respiratory failure. TECHNIQUE: A single frontal view of the chest was obtained. COMPARISON: Chest single view 02/02/2023, chest CT 01/31/2023 FINDINGS: There are lucencies and interstitial opacities in the lungs, consistent with emphysema. The re are airspace opacities in right lower lung zones and all left lung zones. There are small pleural effusions. No pneumothorax. The heart size is normal. The endotracheal tube tip is 2.5 cm above the c anthony. There is a filter in the inferior vena cava. IMPRESSION: 1. Stable airspace opacities in right lower lung zone and all left lung zones, consistent with pneumo venancio. 2. Severe emphysema. 3. Stable small pleural effusions. Reviewed, dictated and finalized at location E. IMPRESSION: 1. Stable airspace opacities in right lower lung zone and all left lung zones, consistent with pneumonia. 2. Severe emphysema. 3. Stable small pleural effusions.
--- NOTE | ~2023-01-26 | XR_ITS ---
EXAMINATION: XR chest 1V portable DATE: 01/26/2023 18:36 INDICATION: Sepsis. TECHNIQUE: A single frontal view of the chest was obtained. COMPARISON: Chest single view 12/30/2022, chest CT 07/17/2022 FINDINGS: There are lucencies and interstitial opacities in the lungs, consistent with emphysema. The re is a moderate-sized loculated left pleural effusion. There are airspace opacities in left lung wit h a lower lung predominance. IMPRESSION: 1. Worsened moderate-sized loculated left pleural effusion. 2. Left lung airspace opacities, consistent with atelectasis versus pneumonia. 3. Emphysema. Reviewed, dictated and finalized at location E.
--- NOTE | ~2023-01-26 | XR_ITS ---
XR chest ET placement DATE: 01/27/2023 09:05 INDICATION: Intubation TECHNIQUE: Portable AP chest on 01/27/2023 at 0902 hours COMPARISON: 01/28/2020 portable AP chest at 0506 hours FINDINGS: Endotracheal tube placement in satisfactory position, distal tip 2.7 cm above selam. There is extensive patchy consolidation throughout the left lung and right mid and particularly right lower lung, but there is substantial improvement of the previous Complete opacification of left hemithorax since 01/27/2023. Bilateral hyperinflation suggesting obstructive airways disease. Cardiac megaly, aortic atherosclerosis. Severe osteopenia. Multiple fracture deformities of the thoracic spine. IVC filter is noted IMPRESSION: Improvement of left lung aeration since 0506 hours today following ET tube placement in s atisfactory position Extensive patchy consolidation throughout the left lung and right mid and particularly lower lung Reviewed, dictated and finalized at Location A. Reviewed, dictated and finalized at location A. IMPRESSION: Improvement of left lung aeration since 0506 hours today following ET tube placement in satisfactory position Extensive patchy consolidation throughout the left lung and right mid and parti cularly lower lung
--- NOTE | ~2023-01-26 | XR_ITS ---
Portable chest x-ray Comparison: 02/01/2023 Clinical History: Respiratory failure Findings: Endotracheal tube in satisfactory position. There is extensive interstitial disease in the lungs, with areas of mild patchy haziness, similar to prior exam. Cardiomediastinal silhouette is s table. Bones and soft tissues are unremarkable. Impression: COPD and/or other chronic interstitial disease, similar to prior exam. Mild patchy haziness is unchanged, which may be related to underlying chronic changes. Correlate for superimposed acute pulmonary edema or infection. ET tube in place. Reviewed, dictated and finalized at location . Impression: COPD and/or other chronic interstitial disease, similar to prior exam. Mild patchy haziness is unchanged, which may be related to underlying chronic c hanges. Correlate for superimposed acute pulmonary edema or infection. ET tube in place.
--- NOTE | ~2023-01-26 | XR_ITS ---
XR chest 1V portable DATE: 01/28/2023 05:40 INDICATION: Left-sided pneumonia, pleural effusion TECHNIQUE: Portable AP chest on 01/28/2023 at 0514 hours COMPARISON: 01/28/2020 portable AP chest at 0902 hours FINDINGS: ET tube in satisfactory position. Pulmonary vascular congestion and redistribution and diffuse pulmonary interstitial prominence includ ing Otis B-lines, suggesting pulmonary edema. There is patchy consolidation throughout much of the left lung, particularly left mid lung, in addition to bilateral lower lung infiltrate or atelectasis. Mild pleural effusions. Severe diffuse osteopenia. There are multiple fracture deformities of the thoracic spine. IVC filter. IMPRESSION: Pulmonary edema, bilateral pulmonary infiltrates, most prominent in the left midlung. Dif ferential diagnosis from the lung infiltrates includes pneumonia and/or pulmonary edema. Increased congestive changes since 01/27/2023 Reviewed, dictated and finalized at location A. IMPRESSION: Pulmonary edema, bilateral pulmonary infiltrates, most prominent in the left midlung. Differential diagnosis from the lung infiltrates includes pn eumonia and/or pulmonary edema. Increased congestive changes since 01/27/2023
--- NOTE | ~2023-01-26 | XR_ITS ---
EXAMINATION: XR chest ET placement Exam Date/Time: 02/12/2023 21:48 CDT HISTORY: ETT placement/OG tube placement Comparison: 02/12/2023 at 7:47 PM. RESULT: Lines, tubes, and devices: Endotracheal tube terminating 1.6 cm above the selam. An NG tube termina carlos manuel out of the [id number]. IVC filter. Lungs and pleura: Decreased diffuse interstitial opacities. Persistent bibasilar subsegmental opacit ies and bilateral costophrenic angle blunting. Cardiomediastinal silhouette: Stable. Other: No acute osseous or upper abdominal finding. IMPRESSION: Endotracheal tube terminates 1.6 cm above the selam. NG tube terminates out of the [id number]., N ow mild interstitial edema. Bibasilar atelectasis/consolidation and small effusions. Reviewed, dictated and finalized at location K. IMPRESSION: Endotracheal tube terminates 1.6 cm above the selam. NG tube terminates out of the [id number]., Now mild interstitial edema. Bibasilar atelectasis/consoli dation and small effusions.
--- NOTE | ~2023-01-26 | XR_ITS ---
Portable chest x-ray Comparison: 02/04/2023 Clinical History: Respiratory failure Findings: Endotracheal tube is in satisfactory position. Probable COPD and/or interstitial disease, with mild patchy haziness, similar to prior exam. Possible small left pleural effusion. Cardiomedias tinal silhouette is stable. Bones and soft tissues are unremarkable. Impression: ET tube in satisfactory position. Overall, no change in pulmonary findings from prior exam. Probable COPD and/or chronic interstitial d isease with mild patchy haziness. Correlate for superimposed pulmonary edema or infection. Probable small left pleural effusion. Reviewed, dictated and finalized at [facility]. Impression: ET tube in satisfactory position. Overall, no change in pulmonary findings from prior exam. Probable COPD and/or chronic interstitial disease with mild patchy haziness. Correlate for superimpo sed pulmonary edema or infection. Probable small left pleural effusion.
--- NOTE | ~2023-01-26 | XR_ITS ---
EXAMINATION: XR chest 1V portable DATE: 01/29/2023 05:52 INDICATION: Left-sided pneumonia and pleural effusion. TECHNIQUE: A single frontal view of the chest was obtained. COMPARISON: Chest single view 01/28/2023, chest CT 07/17/2022 FINDINGS: There are lucencies in the lungs, consistent with emphysema. There are airspace opacities i n right mid and lower lung zones and all left lung zones. There are small right and moderate-sized le ft pleural effusions. No pneumothorax. The heart size is normal. The endotracheal tube tip is 2.5 cm above the selam. There is a filter in the inferior vena cava. IMPRESSION: 1. Stable airspace opacities in right mid and lower lung zones and all left lung zones, consistent wi th pneumonia. 2. Stable small right and moderate-sized left pleural effusions. 3. Emphysema. Reviewed, dictated and finalized at location A. IMPRESSION: 1. Stable airspace opacities in right mid and lower lung zones and all left darrell g zones, consistent with pneumonia. 2. Stable small right and moderate-sized left pleural effusions. 3. Emphysema.
--- NOTE | ~2023-01-26 | XR_ITS ---
XR chest 1V portable DATE: 02/17/2023 05:26 INDICATION: Mechanical ventilation TECHNIQUE: Portable AP chest on 02/17/2023 at 0509 hours COMPARISON: 02/16/2023 portable AP chest at 0516 hours 01/31/2023 CT chest FINDINGS: ET tube is approximately 1.5 cm above selam. [place] range is 2-5 cm. Right internal jugular central venous catheter tip overlying lower aspect of superior vena cava. No p neumothorax is detected. Patchy bilateral pulmonary infiltrates appear stable since 02/16/2023. Bilateral hyperinflation cons istent with COPD. Mild left pleural effusion. Aortic calcification, ectasia and unfolding. Diffuse severe osteopenia. IVC filter is noted. IMPRESSION: ET tube tip approximately 1.5 cm above selam; ideal range is 2-5 cm No significant change otherwise since 02/16/2023 Reviewed, dictated and finalized at location A. IMPRESSION: ET tube tip approximately 1.5 cm above selam; ideal range is 2-5 c m No significant change otherwise since 02/16/2023
--- NOTE | ~2023-01-26 | XR_ITS ---
EXAMINATION: XR chest 1V portable DATE: 01/30/2023 05:54 INDICATION: Left-sided pneumonia and pleural effusion. TECHNIQUE: A single frontal view of the chest was obtained. COMPARISON: Chest single view 01/30/2023 FINDINGS: There are lucencies in the lungs, consistent with emphysema. There are airspace opacities i n right mid and lower lung zones and all left lung zones. There are small right and moderate-sized le ft pleural effusions. No pneumothorax. The heart size is normal. The endotracheal tube tip is 2.6 cm above the selam. IMPRESSION: 1. Stable airspace opacities in right mid and lower lung zones and all left lung zones, consistent wi th pneumonia. 2. Stable small right and moderate-sized left pleural effusions. 3. Emphysema. Reviewed, dictated and finalized at location A. IMPRESSION: 1. Stable airspace opacities in right mid and lower lung zones and all left darrell g zones, consistent with pneumonia. 2. Stable small right and moderate-sized left pleural effusions. 3. Emphysema.
--- NOTE | ~2023-01-26 | XR_ITS ---
Portable chest x-ray Comparison: 02/06/2023 Clinical History: Ammonia Findings: Endotracheal tube is in satisfactory position. Possible small left pleural effusion. Patch y hazy airspace disease present in the left lung. Underlying COPD and/or chronic interstitial disease again present. Cardiomediastinal silhouette is stable. Bones and soft tissues are unremarkable. Impression: COPD and/or chronic interstitial disease with superimposed patchy hazy opacity in the left lung, whic h could reflect pulmonary edema and/or infection. Small left pleural effusion. ET tube in place. Reviewed, dictated and finalized at location . Impression: COPD and/or chronic interstitial disease with superimposed patchy hazy opacity in the left lung, which could reflect pulmonary edema and/or infection. Small left pleural effusion. ET tube in place.
--- NOTE | ~2023-01-26 | XR_ITS ---
XR chest 1V portable DATE: 01/27/2023 05:42 INDICATION: Left pneumonia, pleural effusion TECHNIQUE: Portable AP chest on 01/27/2023 at 0506 hours COMPARISON: 01/26/2023 portable AP chest at 1827 hours FINDINGS: There is nearly complete opacification of the left hemithorax with minimal residual aeratio n in the left mid and upper lung field, likely due to increased left lung atelectasis and existing mo derately large left pleural effusion. The right lung is hyperinflated. There is patchy infiltrate or atelectasis in the perihilar and mid a nd lower lung field and mild right pleural effusion. Consider pulmonary edema in addition to pneumoni a. IVC filter is noted Severe diffuse osteopenia. Multiple thoracic spine fracture deformities. IMPRESSION: Interval nearly complete opacification of left hemithorax due to left lung atelectasis an d pleural effusion Interval mild right pleural effusion Right perihilar and mid and lower lung infiltrates, possibly due to pulmonary edema; pneumonia and as piration are additional considerations in the differential diagnosis Severe osteopenia, multiple fracture deformities of the thoracic spine IVC filter Reviewed, dictated and finalized at location A. IMPRESSION: Interval nearly complete opacification of left hemithorax due to le ft lung atelectasis and pleural effusion Interval mild right pleural effusion Right perihilar and mid and lower lung infiltrates, possibly due to pulmonary e iraida; pneumonia and aspiration are additional considerations in the differentia l diagnosis Severe osteopenia, multiple fracture deformities of the thoracic spine IVC filter
--- NOTE | ~2023-01-26 | XR_ITS ---
EXAMINATION: XR chest 1V portable Exam Date/Time: 02/12/2023 13:35 CDT HISTORY: pna Comparison: 02/11/2023. RESULT: Lines, tubes, and devices: IVC filter. Lungs and pleura: Persistent 2.8 cm left upper lobe nodule. Mild left costophrenic angle blunting. D iffuse and peripheral reticular opacities, slightly improved. Persistent segmental left basilar opaci ty. Cardiomediastinal silhouette: Stable. Other: No acute osseous or upper abdominal finding. IMPRESSION: Slightly improved interstitial edema, stable left basilar atelectasis/consolidation, overlying chroni c interstitial lung change. Persistent left upper lung mass. Small left pleural effusion/chronic pleu ral blunting. Reviewed, dictated and finalized at location K. IMPRESSION: Slightly improved interstitial edema, stable left basilar atelectasis/consolida tion, overlying chronic interstitial lung change. Persistent left upper lung ma ss. Small left pleural effusion/chronic pleural blunting.
--- NOTE | ~2023-01-26 | XR_ITS ---
EXAMINATION: XR chest 1V portable DATE: 02/04/2023 05:36 INDICATION: Respiratory failure. TECHNIQUE: A single frontal view of the chest was obtained. COMPARISON: Chest single view 02/03/2023 FINDINGS: There are lucencies and interstitial opacities in the lungs, consistent with emphysema. The re are airspace opacities involving all lung zones bilaterally, left worse than right. There is a sma ll left pleural effusion. No pneumothorax. The heart size is normal. The endotracheal tube tip is 3.1 cm above the selam. There is a filter in the inferior vena cava. IMPRESSION: 1. Stable diffuse lung disease, left worse than right, consistent with multifocal pneumonia superimpo sed on severe emphysema. 2. Stable small left pleural effusion. Reviewed, dictated and finalized at location E. IMPRESSION: 1. Stable diffuse lung disease, left worse than right, consistent with multifoc al pneumonia superimposed on severe emphysema. 2. Stable small left pleural effusion.
--- NOTE | ~2023-01-26 | XR_ITS ---
Portable chest x-ray Comparison: 02/05/2023 Clinical History: Respiratory failure Findings: Endotracheal tube in satisfactory position. Probable small left pleural effusion present. There is stable patchy hazy and extensive interstitial disease. Cardiomediastinal silhouette is stab le. Bones and soft tissues are unremarkable. Impression: COPD and/or chronic interstitial disease with superimposed patchy pulmonary edema versus infection. Minimal left pleural effusion. ET tube in place. Reviewed, dictated and finalized at location . Impression: COPD and/or chronic interstitial disease with superimposed patchy pulmonary musa ma versus infection. Minimal left pleural effusion. ET tube in place.
--- NOTE | ~2023-01-26 | XR_ITS ---
EXAMINATION: XR chest 1V portable Exam Date/Time: 02/12/2023 19:40 CDT HISTORY: Dyspnea Comparison: Same date at 1:30 PM. RESULT: Lines, tubes, and devices: IVC filter. Lungs and pleura: Stable left upper lung nodule. Worsening now moderate diffuse reticular opacities unchanged mild left costophrenic angle blunting. Cardiomediastinal silhouette: Stable. Other: No acute osseous or upper abdominal finding. IMPRESSION: Worsening, now moderate interstitial edema. Stable small pleural effusion versus chronic pleural blun ting. Reviewed, dictated and finalized at location K. IMPRESSION: Worsening, now moderate interstitial edema. Stable small pleural effusion versu s chronic pleural blunting.
--- NOTE | ~2023-01-26 | XR_ITS ---
EXAMINATION: XR chest 1V portable DATE: 02/01/2023 16:04 INDICATION: Left pleural effusion status post thoracentesis. TECHNIQUE: A single frontal view of the chest was obtained. COMPARISON: Chest single view 01/31/2023, chest CT 01/31/2023 FINDINGS: There are lucencies in the lungs, consistent with emphysema. There are airspace opacities i n right mid and lower lung zones and all left lung zones, consistent with pneumonia. There is a small left pleural effusion. The heart size is normal. The endotracheal tube tip is 3.5 cm above the grant a. There is a filter in the inferior vena cava. IMPRESSION: 1. Small left pleural effusion with improvement status post thoracentesis. 2. Multifocal pneumonia, stable from 01/31/2023. Reviewed, dictated and finalized at location A.
--- NOTE | ~2023-01-26 | CT_ITS ---
EXAMINATION: CT brain wo con DATE: 01/26/2023 18:38 INDICATION: Unresponsiveness. TECHNIQUE: Computed tomography (CT) of the head was performed without intravenous contrast. The mA wa s adjusted according to patient size. Iterative reconstruction technique was employed. The dose-lengt h product was 605.33 mGy-cm. COMPARISON: Head CT 07/17/2022 FINDINGS: There are dystrophic calcifications in the left basal ganglia. There is no intracranial hem orrhage, acute infarction, or abnormal intracranial mass lesion. There are scattered areas of low att enuation in the cerebral white matter. The ventricles are normal in size. There is mild mucosal thick ening in the paranasal sinuses. The orbits are normal. There are small bilateral mastoid effusions. IMPRESSION: 1. Stable mild nonspecific cerebral white matter disease, which likely represents chronic small vesse l ischemic disease. Reviewed, dictated and finalized at location E. IMPRESSION: 1. Stable mild nonspecific cerebral white matter disease, which likely represen ts chronic small vessel ischemic disease.
--- NOTE | ~2023-01-26 | XR_ITS ---
XR chest 1V portable 02/11/2023 11:03 Indication: Shortness of breath. Cough. Procedure: AP portable chest Comparison: Comparison to multiple prior studies sequentially, with oldest reviewed study dated 01/21. Findings: Cardiomegaly. Bilateral interstitial infiltrates are present, improved since 02/05/2023. Th ere is masslike density in the left upper thorax. The lungs are hyperinflated which is consistent wit h, but not diagnostic of chronic obstructive pulmonary disease. Generalized osteopenia. Small left pl eural effusion. Impression: 1: Diffuse bilateral interstitial infiltrates are improving, differential includes edema and pneumoni a. 2: Masslike density left upper thorax. Cannot exclude bronchogenic carcinoma. Reviewed, dictated and finalized at location A. Impression: 1: Diffuse bilateral interstitial infiltrates are improving, differential inclu fern edema and pneumonia. 2: Masslike density left upper thorax. Cannot exclude bronchogenic carcinoma.
--- NOTE | ~2023-01-26 | XR_ITS ---
Portable chest x-ray Comparison: 02/13/2023 Clinical History: Intubation Findings: Endotracheal tube and right IJ line are in satisfactory position. There are small bilatera l pleural effusions with probable mild right basilar pulmonary edema. There is underlying COPD and/or chronic interstitial disease. Stable left upper lobe nodular opacity. Cardiomediastinal silhouette is stable. Bones and soft tissues are unremarkable. Impression: Support tubes, as above. Stable left upper lobe nodular opacity. Small pleural effusions with probable mild right basilar atelectasis versus pneumonia. Underlying COPD and/or chronic interstitial disease. Reviewed, dictated and finalized at location . Impression: Support tubes, as above. Stable left upper lobe nodular opacity. Small pleural effusions with probable mild right basilar atelectasis versus pne umonia. Underlying COPD and/or chronic interstitial disease.
--- NOTE | ~2023-01-26 | XR_ITS ---
EXAMINATION: XR chest 1V portable DATE: 02/16/2023 05:44 INDICATION: Intubation. TECHNIQUE: A single frontal view of the chest was obtained. COMPARISON: Chest single view 02/15/2023 FINDINGS: There are lucencies and chronic interstitial opacities in the lungs, consistent with emphys naz. There are airspace opacities in right mid and lower lung zones and all left lung zones. There is a small left pleural effusion. No pneumothorax. The heart size is normal. The endotracheal tube tip is 2.6 cm above the selam. A right internal jugular central venous catheter is seen with tip in the superior vena cava. There is a filter in the inferior vena cava. IMPRESSION: 1. Stable diffuse lung disease, consistent with pneumonia superimposed on severe emphysema. 2. Stable small left pleural effusion. Reviewed, dictated and finalized at location E. IMPRESSION: 1. Stable diffuse lung disease, consistent with pneumonia superimposed on sever e emphysema. 2. Stable small left pleural effusion.
--- NOTE | ~2023-01-26 | XR_ITS ---
Portable chest x-ray Comparison: 02/12/2023 Clinical History: Pneumonia Findings: Endotracheal tube, NG tube, and right IJ line are in place. Stable COPD/chronic interstiti al disease. There is minimal haziness at the left upper lobe. Suspected small left pleural effusion. Cardiomediastinal silhouette is stable. Bones and soft tissues are unremarkable. Impression: Support tubes, as above. COPD and/or chronic interstitial disease with probable superimposed haziness of the left upper lobe. Correlate for focal pneumonia. Probable small left pleural effusion. Reviewed, dictated and finalized at location . Impression: Support tubes, as above. COPD and/or chronic interstitial disease with probable superimposed haziness of the left upper lobe. Correlate for focal pneumonia. Probable small left pleural effusion.
--- NOTE | ~2023-01-26 | XR_ITS ---
EXAMINATION: XR chest 1V portable DATE: 02/15/2023 05:26 INDICATION: Intubation. TECHNIQUE: A single frontal view of the chest was obtained. COMPARISON: Chest single view 02/14/2023, chest CT 01/31/2023 FINDINGS: There are lucencies and chronic interstitial opacities in the lungs, consistent with emphys naz. There are airspace opacities in right lower lung zone and left upper and lower lung zones. There is a small left pleural effusion. No pneumothorax. The heart size is normal. The endotracheal tube t ip is 1.6 cm above selam. A right internal jugular central venous catheter is seen with tip at the s uperior cavoatrial junction. There is a filter in the inferior vena cava. IMPRESSION: 1. Stable airspace opacities in right lower lung zone and left upper and lower lung zones, consistent with pneumonia. 2. Stable small left pleural effusion. 3. Emphysema. Reviewed, dictated and finalized at location E.
--- NOTE | ~2023-01-26 | US_ITS ---
EXAMINATION: US thoracentesis DATE: 02/01/2023 15:44 INDICATION: pleural effusion TECHNIQUE: The procedure and its risks, benefits, and alternatives were discussed with the patient's power of attorney general. Potential risks discussed included bleeding, infection, and pneumothorax. She unde rstood the risks and agreed to proceed. The skin was prepped and draped in sterile fashion. 1% lidoca ine was used for local anesthesia. Under ultrasound guidance, a 5 Fr catheter with trochar was advanc ed into the left pleural effusion. Fluid was aspirated. The catheter was removed, and a dressing was applied. There were no immediate complications. FINDINGS: Ultrasound images demonstrate a left pleural effusion and the catheter within the fluid. IMPRESSION: 1. Successful ultrasound-guided thoracentesis yielding 500 mL of phillip-colored fluid. Reviewed, dictated and finalized at location A.
--- NOTE | 2023-01-26 17:48 | ED.AMS ---
HPI - Altered Mental Status General Chief Complaint: Altered Mental Status Stated Complaint: unresponsive Time Seen by Provider: 01/26/23 17:47 Source: EMS Mode of arrival: EMS History of Present Illness HPI narrative: 77 years old -Gabonese female came from [facility], unresponsive since 1 PM today which is 5 hours ago. Patient had a recent diagnosis of pneumonia and currently on antibiotic. Patient normally oriented x2, CODE STATUS is comfort measures only. Related Data Home Medications Medication Instructions Recorded Confirmed acetaminophen 325 mg capsule 650 mg PO Q6-8H PRN Pain 07/17/22 07/17/22 amlodipine 10 mg tablet 10 mg DAILY 07/17/22 07/17/22 famotidine 20 mg tablet 20 mg PO BID 07/17/22 07/17/22 hydrochlorothiazide 25 mg tablet 25 mg PO DAILY 07/17/22 07/17/22 ipratropium 0.5 mg-albuterol 3 mg 1 ml Q6H PRN Shortness Of Breath 07/17/22 07/17/22 (2.5 mg base)/3 mL nebulization soln levetiracetam 750 mg tablet 750 mg PO BID 07/17/22 07/17/22 losartan 50 mg tablet 50 mg PO DAILY 07/17/22 07/17/22 metoprolol tartrate 50 mg tablet 50 mg PO BID 07/17/22 07/17/22 mirtazapine 7.5 mg tablet 7.5 mg PO HS 07/17/22 07/17/22 Allergies Allergy/AdvReac Type Severity Reaction Status Date / Time heparin (porcine) Allergy Unknown Verified 12/30/22 02:45 Review of Systems Review of Systems: ROS unobtainable: Yes unobtainable due to medical condition and unobtainable due to mental status PMFSH Past Medical History Medical History Acute hypercapnic respiratory failure Essential hypertension Pneumonia Seizures Social History Social History Smoking status: Unknown if ever smoked Alcohol intake: unknown Substance use: unknown Spiritual care concerns: No Exam Narrative: General appearance: Well-developed, well-nourished, responsive to painful stimulation by moving Skin: Normal color Head: Normocephalic, nontraumatic Eyes: Clear conjunctiva ENT: Oropharynx normal, ears normal, nose normal Neck: Supple, nontender Chest and respiratory: Diminishment of air entry bilaterally Heart: Regular rate/rhythm Abdomen: Soft, nontender, no organomegaly, quiet bowel sounds Vascular: Normal peripheral pulses, normal capillary refill. Musculoskeletal: Normal range of motion, nontender back Neurologic: Responsive to pain only Course Vital Signs Vital signs: Vital Signs Temperature 36.3 C L 01/26/23 17:50 Pulse Rate 86 01/26/23 17:50 Respiratory Rate 26 H 01/26/23 17:50 Blood Pressure 90/60 L 01/26/23 17:50 Pulse Oximetry 83 L 01/26/23 17:50 Oxygen Delivery Non-Rebreather Mask 01/26/23 17:50 Oxygen Flow Rate 10 01/26/23 17:50 Temperature 36.3 C L 01/26/23 17:50 Pulse Rate 75 01/26/23 22:26 Respiratory Rate 29 H 01/26/23 22:26 Blood Pressure 78/55 L 01/26/23 22:26 Pulse Oximetry 100 01/26/23 22:26 Oxygen Delivery Nasal Cannula 01/26/23 20:19 Oxygen Flow Rate 3 01/26/23 20:19 Procedures Central Line Placement Right Femoral: Central Line Date: 01/26/23 Central Line Time: 22:20 Discussed w/ the patient/family/POA,the placement of a central venous catheter, including its clinical necessity/indication & associated potential risks, benifits and alternatives.: Yes The patient/family/POA understand(s) and acknowledge(s) the need to proceed with central venous catheter insertion as an important element of the patient's clinical management.: Yes Performed Emergently - Given emergent patient condition, temporal constraints may have precluded informed conse
--- NOTE | 2023-01-26 18:02 | ECG_ITS ---
Measurements Intervals [place] Rate: 88 P: 62 OK: 200 QRS: 26 QRSD: 95 T: 57 QT: 333 QTc: 403 Interpretive Statements SINUS RHYTHM POSSIBLE RIGHT VENTRICULAR CONDUCTION DELAY [RSR (QR) IN V1/V2] NONSPECIFIC ST ELEVATION [0.05+ mV ST ELEVATION] ABNORMAL ECG COMPARED TO ECG 07/17/2022 01:59:08 [address] NOW PRESENT [address] (T WAVE) DEVIATION NOW PRESENT Electronically Signed On 01-27-2023 8:28:32 CDT by Jakub Haider M.D.
[2023-01-26 18:35] LABS: Basophils Absolute Auto 0.1 K/mm3 (0.0-0.1); Basophils Percent Auto 0.4 % (0.2-1.2); Eosinophils Absolute Auto 0.1 K/mm3 (0-0.3); Eosinophils Percent Auto 0.5 % (0-4.4); Hematocrit 38.8 % (37.0-47.0); Hemoglobin 11.3 g/dL (12.0-15.0); Immature Granulocyte Absolute 0.11 K/mm3 (0.00-0.031); Immature Granulocyte Percent A 0.6 % (0-0.5); Lymphocytes Absolute Auto 1.11 K/mm3 (0.9-3.2); Lymphocytes Percent Auto 6.5 % (18.3-44.2); Mean Corpuscular HGB Conc 29.1 g/dl (32-36); Mean Corpuscular Hemoglobin 29.9 pg (26-34); Mean Corpuscular Volume 102.6 fl (80-100); Mean Platelet Volume 10.1 fl (7.4-10.4); Monocytes Absolute Auto 1.9 K/mm3 (0.1-0.6); Monocytes Percent Auto 10.9 % (2.6-8.5); Neutrophils Absolute Auto 13.9 K/mm3 (1.3-6.7); Neutrophils Percent Auto 81.1 % (45.5-73.1); Platelet Count Result 344 k/mm3 (150-375); Red Blood Count 3.78 M/mm3 (4.2-5.4); Red Cell Distribution Width 14.4 % (11.5-14.5); White Blood Count 17.1 K/mm3 (4.5-10.0)
[2023-01-26 18:45] LABS: INR 1.1; Partial Thromboplastin Time 28.6 SECONDS (22.3-36.8); Prothrombin Time 15.1 Seconds (11.1-14.7)
--- NOTE | 2023-01-26 18:46 | PC.NURSE ---
while rolling pt on cot to change linens spo2 went from 83% on NRB to 100%
[2023-01-26 18:50] LABS: Alveolar/Arterial O2 Gradient 428.4 mmHg; Base Excess ABG 16.1 mEq/l (+/-2.0); Fractional Inspired Oxygen 100 %; HCO3 ABG 50.6 mEq/l (22.0-26.0); Oxygen Content ABG 16.1 %vol (16.0-22.0); Oxygen Saturation ABG 97.1 % (95.0-100.0); Oxyhemoglobin 95.9 % THb (90.0-100.0); PO2 ABG 130.5 mmHg (80.0-100.0); Total Hemoglobin 11.8 g/dL (12.0-18.0)
[2023-01-26 18:51] LABS: Device NON-REBREATHER MASK; PCO2 ABG 154.1 mmHg (35.0-45.0); Site Drawn RIGHT BRACHIAL; pH ABG 7.134 (7.350-7.450)
[2023-01-26 18:54] LABS: Appearance Urine Cloudy (Clear); Bacteria Urine Rare /hpf; Bilirubin Urine Negative (Negative); Blood Urine 1+ (Negative); Color Urine Dark Yellow (Yellow); Glucose Urine UA Negative (Negative); Ketones Urine Negative (Negative); Leukocyte Esterase Ur 3+ LEU/UL (Negative); Need Manual Microscopic Reviewed; Nitrate Urine Negative (Negative); Non Pathogenic Casts >20; Protein Urine 1+ mg/dL (Negative); Specific Grav Ur 1.018 (1.001-1.035); Squamous Epithelial Cell Urine Moderate /hpf (Few); WBC Urine 21-50 /hpf
[2023-01-26 18:55] LABS: Add Urine Microscopic? YES
[2023-01-26] MEDS: SODIUM CHLORIDE 0.9% IV 1,000 ML 999 ML IV CONT ×2 (18:55→22:11)
[2023-01-26] MEDS: PIPERACILLN/TAZ 3.375GM/NS50ML 3.375 GM/50 ML BAG IVPB (18:56)
--- NOTE | 2023-01-26 19:14 | PC.NURSE ---
[facility] care of pt. Report from JANUARY Dawkins. Pt resting quietly per cart with family at bedside. VSS at this time. Will cont to monitor.
[2023-01-26 19:17] LABS: Hypochromasia 1+ (NORMAL); Platelet Estimate Adequate (Adequate); Schistocytes None Seen (NORMAL)
[2023-01-26] MEDS: levoFLOXacin 750 MG/D5W 150 ML 750 MG/150 ML BAG 100 MG IVPB (19:35)
[2023-01-26 19:59] LABS: Alanine Aminotransferase 12 U/L (6-35); Albumin Level 3.2 g/dL (3.5-5.1); Alkaline Phosphatase 93 U/L (38-126); Aspartate Amino Transferase 21 U/L (14-36); Bilirubin,Total 0.7 mg/dL (0.2-1.3); Blood Urea Nitrogen 38 mg/dL (7-17); CRP 5.5 mg/dL (<1.0); Calcium 8.2 mg/dL (8.4-10.2); Carbon Dioxide > 40 mmol/L (22-30); Chloride 92 mmol/L (98-107); Estimated Glomerular Filt Rate > 60; Glucose 179 mg/dL (65-110); Sodium 134 mmol/L (137-145)
[2023-01-26] MEDS: NOREPINEPHRINE 8 MG/D5W 250 ML 8 MG/250 ML BAG 9.38 MG IV CONT (22:18)
--- NOTE | 2023-01-26 23:30 | PM.IMHP ---
H&P: HPI History of Present Illness Date/Time: 01/26/23 23:30 Chief Complaint: Patient sent to the ER for evaluation after she was found unresponsive in the long term 5 hours ago Narrative: She is a very unfortunate 77 years old Afro-Ind[place]ian female with chronic medical issues who is a resident of long term with comfort care code status. She has been feeling weak and tired for the past few days and was found unresponsive in the long term around 1:00 p.m. today. She was sent to the ER for evaluation at around 6:00 p.m. Workup was done which showed patient to be hypoxic with O2 sats in 80s. She was also diagnosed with UTI and a large pneumonia on the left side almost completely obliterating the lung with left pleural effusion. Patient was oxygenated in the ER and her vitals improved a little. Patient started dropping her blood pressure again and was started on IV Levophed after insertion of central line and is being admitted for medical management and close critical care monitoring. Review of Systems Review of Systems: unable to be obtained. Patient is confused with altered mental status ROS unobtainable: Yes unobtainable due to medical condition and unobtainable due to mental status PMFSH Past Medical History Medical History (Updated 01/27/23 @ 01:02 by Wagner Vogel MD) Acute hypercapnic respiratory failure DNR (do not resuscitate) Essential hypertension Pneumonia Seizures Social History Social History Smoking status: Unknown if ever smoked Alcohol intake: unknown Substance use: unknown Spiritual care concerns: No Meds Home Medications and Allergies Home Medications Medication Instructions Recorded Confirmed Type acetaminophen 325 mg capsule 650 mg PO Q6-8H PRN Pain 07/17/22 07/17/22 History amlodipine 10 mg tablet 10 mg DAILY 07/17/22 07/17/22 History famotidine 20 mg tablet 20 mg PO BID 07/17/22 07/17/22 History hydrochlorothiazide 25 mg tablet 25 mg PO DAILY 07/17/22 07/17/22 History ipratropium 0.5 mg-albuterol 3 mg 1 ml Q6H PRN Shortness Of Breath 07/17/22 07/17/22 History (2.5 mg base)/3 mL nebulization soln levetiracetam 750 mg tablet 750 mg PO BID 07/17/22 07/17/22 History losartan 50 mg tablet 50 mg PO DAILY 07/17/22 07/17/22 History metoprolol tartrate 50 mg tablet 50 mg PO BID 07/17/22 07/17/22 History mirtazapine 7.5 mg tablet 7.5 mg PO HS 07/17/22 07/17/22 History ipratropium bromide 0.02 % 0.5 mg (2.5 mL) inhalation Q6HRT 07/25/22 Rx solution for inhalation #75 mL levalbuterol HCl 1.25 mg/3 mL 0.63 mg (1.512 mL) inhalation 07/25/22 Rx solution for nebulization Q6HRT #75 mL pantoprazole 40 mg tablet,delayed 40 mg PO QAM #30 tabs 07/25/22 Rx release (Protonix) polyethylene glycol 3350 17 gram 17 g feeding tube QAM PRN 07/25/22 Rx oral powder packet (Miralax) constipation #30 ea white petrolatum-mineral oil 83 1 applic EACH EYE Q12HR #25 grams 07/25/22 Rx %-15 % eye ointment (Lubrifresh PM) amoxicillin 500 mg capsule 1,000 mg feeding tube TID 7 days 12/30/22 Rx #42 caps metronidazole 500 mg tablet 500 mg feeding tube Q8H 7 days #21 12/30/22 Rx tabs Allergies Allergy/AdvReac Type Severity Reaction Status Date / Time heparin (porcine) Allergy Unknown Verified 12/30/22 02:45 Vital Signs Vital Signs - 24 hr 01/26/23 17:50 01/26/23 18:15 01/26/23 18:48 Temperature 36.3 C L Pulse Rate 86 88 88 Respiratory Rate 26 H 24 H 24 H Blood Pressure 90/60 L 86/56 L 105/64 Pulse Oximetry 83 L 100 100 Oxygen Delivery Non-Rebreather Mask Oxygen Flow Rate 10 01/26/23 19:33 01/26/23 20:19 01/26/23 19:23 Temperature Pulse Rate 87 Respiratory Rate 30 H Blood Pressure Pulse Oximetry 100 99 100 Oxygen Delivery Non-Rebreather Mask Nasal Cannula Oxygen Flow Rate 10 3 01/26/23 19:30 01/26/23 19:31 01/26/23 19:45 Temperature Pulse Rate 90 87 84 Respiratory Rate 3
[2023-01-27] VITALS (94 sets, daily range): BP systolic 71–160; BP diastolic 43–88; PULSE 63–153; RESP 19–32; TEMP 32.4–38.4; O2SAT 83–100; BMI 25.3
--- NOTE | 2023-01-27 | ECHO_ITS ---
Patient Info Name: Gabriela Aguayo Age: 77 years : 1945 Gender: Female Ht: 66 in Wt: 157 lbs BSA: 1.83 m2 HR: 111 bpm BP: 111 / 73 mmHg Heart Rhythm: Sinus Rhythm Technical Quality: Fair Exam Date: 01/27/2023 1:35 PM [facility]: ICU3 Patient Status: Inpatient Admit Date: 01/26/2023 Staff Ordering Physician: Mary Cannon MD Cassandra Developer: Leta Paige RDCS Attending Provider: Wagner Vogel MD Referring Physician: Kassandra YOUNG; Exam Type: CA echo doppler color flow Study Info Indications - RESP FAILURE SHOCK Complete two-dimensional, color flow and Doppler transthoracic echocardiogram is performed. Summary 1. Complete two-dimensional, color flow and Doppler transthoracic echocardiogram is performed. 2. Left ventricular chamber dimension is normal. 3. Left ventricular systolic function is hyperdynamic, estimated at >70%. 4. There is no increased left ventricular wall thickness. 5. The left ventricular diastolic function is grade I diastolic dysfunction. 6. Left atrial chamber dimension is mildly enlarged. 7. There is mild aortic valve sclerosis. 8. There is mild tricuspid valve regurgitation. 9. Moderate pulmonary hypertension, estimated pulmonary arterial systolic pressure is 55 mmHg. 10. Pleural Effusion is seen. Left Ventricle Left ventricular chamber dimension is normal. Left ventricular systolic function is hyperdynamic, estimated at >70%. There is no increased left ventricular wall thickness. The left ventricular diastolic function is grade I diastolic dysfunction. Right Ventricle Right ventricular chamber dimension is normal. Right ventricular systolic function is normal. Left Atria Left atrial chamber dimension is mildly enlarged. Right Atria Right atrial chamber dimension is normal. Atrial Septum Intact interatrial septum visualized by color flow imaging. Aortic Valve The aortic valve is trileaflet. There is mild aortic valve sclerosis. There is no aortic valve stenosis. There is trace aortic valve regurgitation. Pulmonic Valve The pulmonic valve is normal. There is no pulmonic valve stenosis. There is trace pulmonic regurgitation. Mitral Valve The mitral valve has normal leaflets. There is no mitral valve stenosis. There is trace mitral valve regurgitation. Tricuspid Valve The tricuspid valve leaflets are normal. There is no significant tricuspid valve stenosis. There is mild tricuspid valve regurgitation. Moderate pulmonary hypertension, estimated pulmonary arterial systolic pressure is 55 mmHg. Other Findings Pleural Effusion is seen. Pericardium/Pleural The pericardium appears normal. There is trivial pericardial effusion. Inferior Vena Cava Normal inferior vena cava with <50% collapse upon inspiration consistent with normal right atrial pressure, 10 mmHg. Aorta The aortic root size at the sinus of Valsalva is normal. Left Ventricular Outflow Tract Name Value Normal LVOT 2D LVOT Diameter 2.0 cm Pulmonic Valve Name Value Normal PV Doppler
[2023-01-27] MEDS: SODIUM CHLORIDE 0.9% IV 1,000 ML 150 ML IV CONT (00:44)
--- NOTE | 2023-01-27 01:09 | PC.NURSE ---
Pt diaphoretic. Blood glucose checked and 244, temp checked 91.2 rectally. Yanira hugger placed on pt. at 43 degrees Celsius.
[2023-01-27 01:10] LABS: Glucose Point of Care 244 mg/dl (65-105)
[2023-01-27] MEDS: PIPERACILLN/TAZ 3.375GM/NS50ML 3.375 GM/50 ML BAG IVPB ×4 (04:05→21:41)
--- NOTE | 2023-01-27 05:05 | ADMGEN ---
This patient, Gabriela Aguayo, was admitted to Intensive Care Unit-3 at 0300. Patient/family oriented to hospital policies and general routines including ID bracelet, bed and alarms, visiting hours, pain management, procedures, bathroom and other care routines, personal items, smoking policy, room service/diet, and visiting hours. Information on how to activate the Rapid Response Team has been discussed. Patient/Family are encouraged to report perceived risks to care and to ask questions if they do not understand what they are told or what they should do.
[2023-01-27] MEDS: IPRATROPIUM BR 0.02% INH SOLN 0.5 MG/2.5 ML VIAL INHALATION ×5 (05:07→23:28)
[2023-01-27] MEDS: ALBUTEROL SULFATE NEB 2.5 MG/3 ML INH INHALATION ×4 (05:08→23:27)
[2023-01-27 06:12] LABS: Hematocrit 40.8 % (37.0-47.0); Hemoglobin 11.2 g/dL (12.0-15.0); Mean Corpuscular HGB Conc 27.5 g/dl (32-36); Mean Corpuscular Hemoglobin 29.7 pg (26-34); Mean Corpuscular Volume 108.2 fl (80-100); Mean Platelet Volume 9.8 fl (7.4-10.4); Platelet Count Result 440 k/mm3 (150-375); Red Blood Count 3.77 M/mm3 (4.2-5.4); Red Cell Distribution Width 13.9 % (11.5-14.5); White Blood Count 24.7 K/mm3 (4.5-10.0)
[2023-01-27 06:23] LABS: Alanine Aminotransferase 20 U/L (6-35); Albumin Level 3.3 g/dL (3.5-5.1); Alkaline Phosphatase 101 U/L (38-126); Aspartate Amino Transferase 35 U/L (14-36); Bilirubin,Total 0.6 mg/dL (0.2-1.3); Blood Urea Nitrogen 39 mg/dL (7-17); Calcium 8.7 mg/dL (8.4-10.2); Carbon Dioxide > 40 mmol/L (22-30); Chloride 93 mmol/L (98-107); Estimated CRCL calculation 88 ml/min; Estimated Glomerular Filt Rate > 60; Glucose 245 mg/dL (65-110); Magnesium 2.2 mg/dL (1.6-2.3); Phosphorus 5.2 mg/dL (2.5-4.5); Potassium 5.2 mmol/L (3.4-5.0); Sodium 137 mmol/L (137-145)
[2023-01-27 06:38] LABS: Anisocytosis 1+ (NORMAL); Band Neutrophils Percent 17 % (0-6); Lymphocytes Absolute Manual 0.98 K/mm3 (1.1-4.5); Macrocytosis 1+ (NORMAL); Monocytes Absolute Manual 2.96 K/mm3 (0.1-0.90); Monocytes Percent Manual 12 % (3-9); Neutrophils Absolute Manual 20.74 K/mm3 (1.7-7.2); Neutrophils Percent Manual 67 % (46-73); Platelet Estimate Increased (Adequate); Schistocytes None Seen (NORMAL); Total Cells Counted 100
[2023-01-27 06:41] LABS: Hypochromasia 1+ (NORMAL)
[2023-01-27] MEDS: CENTRAL LINE FLUSH 10 ML IV PUSH ×3 (08:00→21:41)
[2023-01-27] MEDS: ALBUTEROL SULFATE NEB 2.5 MG/3 ML INH 15 MG INHALATION (08:05)
[2023-01-27] MEDS: ACETYLCYSTEINE 20% INHAL SOLN 800 MG/4 ML VIAL 200 MG INHALATION ×2 (08:06→20:44)
[2023-01-27 08:26] LABS: Fractional Inspired Oxygen 100 %; Oxygen Content ABG 13.9 %vol (16.0-22.0); PO2 FiO2 Ratio Arterial Blood 0.57 %; Total Hemoglobin 12.2 g/dL (12.0-18.0)
[2023-01-27] MEDS: DEXTROSE 50% 25 GM/50 ML SYRINGE IV PUSH (08:26)
[2023-01-27 08:29] LABS: pH ABG 6.795 (7.350-7.450)
[2023-01-27] MEDS: INSULIN HUMAN REGULAR (*BKC) 100 UNITS/ML 10 UNITS IV PUSH (08:29)
[2023-01-27 08:30] LABS: Oxyhemoglobin 81.2 % THb (90.0-100.0); PCO2 ABG > 0.0 mmHg (35.0-45.0)
[2023-01-27 08:31] LABS: Device HIGH FLOW THERAPY; Modified Allen's Test Pass; Site Drawn LEFT RADIAL
[2023-01-27] MEDS: methylPREDNISolone SOD SUCC 125 MG VIAL IV PUSH (08:31)
[2023-01-27] MEDS: FONDAPARINUX SODIUM 2.5 MG/0.5 ML SYRINGE SUB-Q (08:33)
--- NOTE | 2023-01-27 09:03 | WPDPROCEDUR ---
Procedures Intubation Intubation Date: 01/27/23 Intubation Time: 09:04 Consent: Discussed with daughter Starr, explained to her that patient has pH was 6.79, sees pCO2 was unrecordable. Patient's daughter rescinded the DNR status and asked me to intubate the patient and place her on mechanical ventilation. A pre-procedural Time-Out was completed immediately before starting the procedure and confirmed: Patient Identification, Site, Procedure, Patient Position and the Availability of Requisite Equipment: Yes Sedative: etomidate Paralytic: rocuronium Laryngoscope: fiber optic video scope Assist device used: fiber optic device ET tube size: 7.5 Tube secured depth (cm): 21 Tube secured location: lips Tube placement confirmation: visualized tube passing through cords, equal breath sounds bilaterally, no breath sounds over epigastrium and confirmation by capnometry Patient tolerated procedure: well and no complications Intubation complications: none
[2023-01-27] MEDS: MIDAZOLAM 100MG/NS 100ML(*CRX) 100 MG/100 ML BAG IV CONT (09:04)
[2023-01-27] MEDS: ETOMIDATE 20 MG/10 ML AMPUL IV PUSH (09:04)
[2023-01-27] MEDS: ROCURONIUM BROMIDE 50 MG/5 ML VIAL IV PUSH ×3 (09:04→09:34)
[2023-01-27] MEDS: FENTANYL 2,500MCG/NS250ML(*CRX 2,500 MCG/250 ML BAG IV CONT (09:05)
[2023-01-27] MEDS: SODIUM ZIRCONIUM CYCLOSILICATE 10 GM POWD.PACK PO (09:28)
[2023-01-27] MEDS: FUROSEMIDE INJ 40 MG/4 ML VIAL IV PUSH (09:34)
[2023-01-27] MEDS: VANCOMYCIN 1,250 MG/NS 250 ML 1,250 MG/250 ML BAG 166.67 MG IVPB ×2 (09:35→20:30)
[2023-01-27] MEDS: PANTOPRAZOLE SODIUM IV 40 MG VIAL IV PUSH ×2 (09:38→20:29)
[2023-01-27] MEDS: MINERAL OIL/WHITE PETROLATUM OINTMENT 1 APPLIC EACH EYE ×2 (09:39→20:29)
--- NOTE | 2023-01-27 09:52 | WPDCNINT ---
Assessment and Plan Assessment and plan (1) Acute respiratory failure with hypoxia and hypercapnia: Code(s): J96.01 - Acute respiratory failure with hypoxia; J96.02 - Acute respiratory failure with hypercapnia Status: Acute Assessment and Plan: Acute hypercapnic respiratory failure with pCO2 154 on the ABG on admission -patient was a DNR and comfort measures only was placed on Vapotherm. 01/27: ABGs in the morning showed a pH of 6.79 with unreadable pCO2 and a PO2 of 57, discussed with patient's daughter Starr and updated her with patient's condition, she requested that we do everything and intubated the patient and the daughter rescinded the DNR status. -patient was successfully intubated and placed on mechanical ventilation, initially she had significant amount of secretions from the ET tube, peak airway pressures were significantly high, patient was paralyzed with rocuronium and then Nimbex infusion was started as patient was dyssynchronous with the ventilator. Peak airway pressures have decreased tremendously -currently on CMV mode of ventilation, peep of 5, % FiO2 100%. -repeat ABGs post intubation: 7.34/57/100/30/97%, on CMV mode, tidal volume 400, rate 26, peep of 5, 100% FiO2 -wean FiO2 to maintain O2 sats greater than 92%, decrease respiratory rate to 22 -continue bronchodilators -patient on Mucomyst and Pulmozyme -sedated with fentanyl, Versed infusion, maintain RASS of 0 to -2 -continue Nimbex for neuromuscular blockade due to ventilator dyssynchrony -post intubation and chest x-ray: ?Improvement of left lung aeration since 0506 hours today following ET tube placement in satisfactory position Extensive patchy consolidation throughout the left lung and right mid and particularly lower lung? (2) Septic shock: Code(s): A41.9 - Sepsis, unspecified organism; R65.21 - Severe sepsis with septic shock Status: Acute Assessment and Plan: Patient presented with altered mental status, leukocytosis, pneumonia, UTI, hypothermia -patient received a total of 4 L of IV fluid bolus (3 L in the ER and 1 L in the ICU) -patient was also on maintenance IV fluids at 150 mL/hour and must have received over 1 L fluids overnight. Total IV fluids were greater than 5 L since admission -IV fluids were discontinued patient was something wet, may have some pulmonary edema on chest x-ray along with infiltrates -will continue Zosyn, Levaquin and vancomycin -01/26: Blood cultures have been obtained and pending -01/26: Urine cultures have been obtained pending -01/26: MRSA screen pending -01/27: Sputum cultures are ordered -patient was hypotensive in the ER despite receiving IV fluids and was started on Levophed after central line inserted -continue Levophed and maintain SBP > 90-100 mmHg - (3) Pneumonia: Qualifiers: Laterality: left Lung location: lower lobe of lung Pneumonia type: due to unspecified organism Qualified Code(s): J18.9 - Pneumonia, unspecified organism Code(s): J18.9 - Pneumonia, unspecified organism Status: Acute Assessment and Plan: Respiratory failure likely related to pneumonia, possible pulmonary edema -continue antibiotics as above -patient was given 1 dose of Lasix this morning as she had almost received a total of 4 L and IV fluid bolus and was on maintenance IV fluids at 150 mL/hour so probably has received over a L fluids since last night. (4) Urinary tract infection: Qualifiers: Hematuria presence: without hematuria Urinary tract infection type: site unspecified Qualified Code(s): N39.0 - Urinary tract infection, site not specified Code(s): N39.0 - Urinary tract infection, site not specified Status: Acute Assessment and Plan: UA was reflective of UTI continue antibiotics as above (5) COPD (chronic obstructive pulmonary disease): Qualifiers: COPD type: unspecified COPD Qualified Code(s): J44.9 - Chronic obstructive pulmonary
[2023-01-27] MEDS: CISATRACURIUM BESYLATE 200 MG in DEXTROSE 5% 80 ML 6.44 ML IV CONT (09:57)
[2023-01-27] MEDS: ACIDOPHILUS/BULGARICUS CHEWABLE TABLET 1 TABLET PO (10:38)
[2023-01-27] MEDS: levETIRAcetam 250 MG TABLET 750 MG PO ×2 (10:38→20:48)
[2023-01-27 11:12] LABS: Alveolar/Arterial O2 Gradient 555.6 mmHg; Base Excess ABG 3.5 mEq/l (+/-2.0); Fractional Inspired Oxygen 100 %; HCO3 ABG 30.3 mEq/l (22.0-26.0); Oxygen Content ABG 15.9 %vol (16.0-22.0); Oxygen Saturation ABG 97.1 % (95.0-100.0); Oxyhemoglobin 97.4 % THb (90.0-100.0); PCO2 ABG 57.1 mmHg (35.0-45.0); PO2 ABG 100.3 mmHg (80.0-100.0); Total Hemoglobin 11.5 g/dL (12.0-18.0); pH ABG 7.343 (7.350-7.450)
[2023-01-27 11:13] LABS: Device VENTILATOR; Modified Allen's Test Pass; Site Drawn LEFT RADIAL
[2023-01-27 11:15] LABS: Arterial Blood Gas PEEP 5 cmH2O; Arterial Blood Gas Vent Mode CMV; Arterial Blood Gas Ventilator rate 26 /MIN
[2023-01-27] MEDS: DORNASE ALFA INH SOLN 1 MG/ML 2.5 ML AMP 2.5 MG INHALATION ×2 (11:21→20:44)
[2023-01-27] MEDS: methylPREDNISolone SOD SUCC 125 MG VIAL 40 MG IV PUSH ×3 (11:54→23:44)
[2023-01-27] MEDS: NOREPINEPHRINE 8 MG/D5W 250 ML 8 MG/250 ML BAG 41.25 MG IV CONT (12:00)
[2023-01-27 12:01] LABS: Glucose Point of Care 223 mg/dl (65-105)
[2023-01-27] MEDS: INSULIN ASPART (*BKC) 100 UNITS/ML SUB-Q ×2 (12:12→18:44)
[2023-01-27] MEDS: VASOPRESSIN INJ 100 UNITS in DEXTROSE 5% 95 ML IV CONT (12:53)
[2023-01-27] MEDS: ALBUMIN HUMAN 25% 25 GM/100 ML 100 ML IVPB ×3 (14:24→23:44)
[2023-01-27 15:17] LABS: Anion Gap 7 mmol/L (8-16); Blood Urea Nitrogen 41 mg/dL (7-17); Calcium 8.9 mg/dL (8.4-10.2); Carbon Dioxide 35 mmol/L (22-30); Chloride 93 mmol/L (98-107); Estimated CRCL calculation 61 ml/min; Estimated Glomerular Filt Rate > 60; Glucose 255 mg/dL (65-110); Potassium 4.1 mmol/L (3.4-5.0); Sodium 135 mmol/L (137-145)
[2023-01-27 18:15] LABS: Glucose Point of Care 259 mg/dl (65-105)
--- NOTE | 2023-01-27 19:44 | PC.NURSE ---
Daughter, Starr updated on patient condition at 0740,1045,1330,1610 and 1700. Vital signs given at each event. Family verbalized understanding of all discussed.
[2023-01-27] MEDS: levoFLOXacin 750 MG/D5W 150 ML 750 MG/150 ML BAG 100 MG IVPB (20:08)
[2023-01-27] MEDS: NOREPINEPHRINE 8 MG/D5W 250 ML 8 MG/250 ML BAG 7.5 MG IV CONT (21:40)
[2023-01-27] MEDS: CISATRACURIUM BESYLATE 200 MG in DEXTROSE 5% 80 ML 12.87 ML IV CONT (22:20)
[2023-01-28] VITALS (46 sets, daily range): BP systolic 102–128; BP diastolic 62–76; PULSE 63–100; RESP 18–22; TEMP 36.7–37.6; O2SAT 95–100
[2023-01-28] MEDS: INSULIN ASPART (*BKC) 100 UNITS/ML SUB-Q ×2 (00:03→23:36)
[2023-01-28 00:14] LABS: Glucose Point of Care 213 mg/dl (65-105)
[2023-01-28] MEDS: PIPERACILLN/TAZ 3.375GM/NS50ML 3.375 GM/50 ML BAG IVPB ×4 (03:50→21:11)
[2023-01-28] MEDS: ACETYLCYSTEINE 20% INHAL SOLN 800 MG/4 ML VIAL 200 MG INHALATION ×4 (04:38→20:31)
[2023-01-28] MEDS: ALBUTEROL SULFATE NEB 2.5 MG/3 ML INH INHALATION ×5 (04:39→20:32)
[2023-01-28] MEDS: IPRATROPIUM BR 0.02% INH SOLN 0.5 MG/2.5 ML VIAL INHALATION ×5 (04:39→20:32)
[2023-01-28 04:52] LABS: Alveolar/Arterial O2 Gradient 223.8 mmHg; Base Excess ABG 12.6 mEq/l (+/-2.0); Carboxyhemoglobin 0.3 % THb (0-2.0); Fractional Inspired Oxygen 45 %; HCO3 ABG 35.4 mEq/l (22.0-26.0); Methemoglobin ABG 0.2 %THb (0-1.5); Oxygen Content ABG 13.3 %vol (16.0-22.0); Oxygen Saturation ABG 92.1 % (95.0-100.0); Oxyhemoglobin 93.2 % THb (90.0-100.0); PCO2 ABG 38.4 mmHg (35.0-45.0); PO2 ABG 53.4 mmHg (80.0-100.0); PO2 FiO2 Ratio Arterial Blood 1.19 %; Reduced Hemoglobin 6.3 %THb (0-5.0); Total Hemoglobin 10.1 g/dL (12.0-18.0)
[2023-01-28 04:54] LABS: Modified Allen's Test Pass; Site Drawn LEFT RADIAL; pH ABG 7.583 (7.350-7.450)
[2023-01-28 04:55] LABS: Arterial Blood Gas PEEP 5 cmH2O; Arterial Blood Gas Tidal Volume 400 ml; Arterial Blood Gas Vent Mode CMV; Arterial Blood Gas Ventilator rate 22 /MIN; Device VENTILATOR
[2023-01-28 05:13] LABS: Basophils Percent Auto 0.1 % (0.2-1.2); Hematocrit 26.9 % (37.0-47.0); Immature Granulocyte Absolute 0.15 K/mm3 (0.00-0.031); Lymphocytes Absolute Auto 0.47 K/mm3 (0.9-3.2); Mean Corpuscular HGB Conc 29.7 g/dl (32-36); Mean Corpuscular Hemoglobin 29.2 pg (26-34); Mean Corpuscular Volume 98.2 fl (80-100); Mean Platelet Volume 9.4 fl (7.4-10.4); Monocytes Absolute Auto 0.9 K/mm3 (0.1-0.6); Monocytes Percent Auto 5.4 % (2.6-8.5); Neutrophils Absolute Auto 14.1 K/mm3 (1.3-6.7); Neutrophils Percent Auto 90.5 % (45.5-73.1); Nucleated Red Blood Cells Perc 0.2 % (0.0-0.2); Platelet Count Result 280 k/mm3 (150-375); Red Blood Count 2.74 M/mm3 (4.2-5.4); Red Cell Distribution Width 13.6 % (11.5-14.5); White Blood Count 15.6 K/mm3 (4.5-10.0)
[2023-01-28 05:23] LABS: Lactic Acid Reflex 1.3 mmol/L (0.7-2.0)
[2023-01-28 05:46] LABS: Platelet Estimate Adequate (Adequate)
[2023-01-28 05:48] LABS: Alanine Aminotransferase 16 U/L (6-35); Albumin Level 3.8 g/dL (3.5-5.1); Alkaline Phosphatase 62 U/L (38-126); Anion Gap 4 mmol/L (8-16); Anisocytosis 1+ (NORMAL); Aspartate Amino Transferase 29 U/L (14-36); Bilirubin,Total 1.9 mg/dL (0.2-1.3); Blood Urea Nitrogen 32 mg/dL (7-17); CRP 15.5 mg/dL (<1.0); Calcium 9.5 mg/dL (8.4-10.2); Carbon Dioxide 39 mmol/L (22-30); Chloride 92 mmol/L (98-107); Estimated CRCL calculation 61 ml/min; Estimated Glomerular Filt Rate > 60; Glucose 157 mg/dL (65-110); Hypochromasia 2+ (NORMAL); Magnesium 1.8 mg/dL (1.6-2.3); Phosphorus 1.8 mg/dL (2.5-4.5); Potassium 2.9 mmol/L (3.4-5.0); Schistocytes None Seen (NORMAL); Sodium 135 mmol/L (137-145)
[2023-01-28] MEDS: ALBUMIN HUMAN 25% 25 GM/100 ML 100 ML IVPB (05:48)
[2023-01-28] MEDS: CENTRAL LINE FLUSH 10 ML IV PUSH ×4 (05:48→21:11)
[2023-01-28] MEDS: methylPREDNISolone SOD SUCC 125 MG VIAL 40 MG IV PUSH ×4 (05:48→23:35)
[2023-01-28] MEDS: MAGNESIUM SULF 2 GM/WATER 50ML 2 GM/50 ML BAG IVPB ×2 (06:50→21:10)
[2023-01-28] MEDS: DORNASE ALFA INH SOLN 1 MG/ML 2.5 ML AMP 2.5 MG INHALATION ×2 (06:58→20:32)
[2023-01-28] MEDS: KCL 40 MEQ/WATER 100 ML 100 ML 25 ML IVPB ×2 (07:50→21:10)
[2023-01-28] MEDS: POTASSIUM/PHOSPHORUS/SODIUM 1.5 GM PACKET 1 PACKET PO (07:52)
[2023-01-28] MEDS: MINERAL OIL/WHITE PETROLATUM OINTMENT 1 APPLIC EACH EYE ×2 (08:08→20:06)
[2023-01-28] MEDS: ACIDOPHILUS/BULGARICUS CHEWABLE TABLET 1 TABLET PO (08:08)
[2023-01-28] MEDS: PANTOPRAZOLE SODIUM IV 40 MG VIAL IV PUSH ×2 (08:08→20:06)
[2023-01-28] MEDS: levETIRAcetam 250 MG TABLET 750 MG PO ×2 (08:08→20:05)
--- NOTE | 2023-01-28 08:18 | WPDINTPN ---
Progress Note: A&P Assessment and Plan (1) Acute respiratory failure with hypoxia and hypercapnia: Code(s): J96.01 - Acute respiratory failure with hypoxia; J96.02 - Acute respiratory failure with hypercapnia Status: Acute Assessment and Plan: Acute hypercapnic respiratory failure with pCO2 154 on the ABG on admission -patient was a DNR and comfort measures only was placed on Vapotherm. 01/27: ABGs in the morning showed a pH of 6.79 with unreadable pCO2 and a PO2 of 57, discussed with patient's daughter Starr and updated her with patient's condition, she requested that we do everything and intubated the patient and the daughter rescinded the DNR status. -01/27 patient was successfully intubated and placed on mechanical ventilation, initially she had significant amount of secretions from the ET tube, peak airway pressures were significantly high, patient was paralyzed with rocuronium and then Nimbex infusion was started as patient was dyssynchronous with the ventilator. Peak airway pressures have decreased tremendously -currently on CMV mode of ventilation, peep of 5, % FiO2 45%. - ABGs reviewed -will increase FiO2 to 60% and PEEP to 8, decrease rate to 22 -continue bronchodilators -patient on Mucomyst and Pulmozyme -sedated with fentanyl, Versed infusion, maintain RASS of 0 to -2 -will discontinue Nimbex -chest x-ray this morning: ?Pulmonary edema, bilateral pulmonary infiltrates, most prominent in the left midlung. Differential diagnosis from the lung infiltrates includes pneumonia and/or pulmonary edema. Increased congestive changes since 01/27/2023 (2) Septic shock: Code(s): A41.9 - Sepsis, unspecified organism; R65.21 - Severe sepsis with septic shock Status: Acute Assessment and Plan: Patient presented with altered mental status, leukocytosis, pneumonia, UTI, hypothermia -patient received a total of 4 L of IV fluid bolus (3 L in the ER and 1 L in the ICU) -patient was also on maintenance IV fluids at 150 mL/hour and must have received over 1 L fluids overnight. Total IV fluids were greater than 5 L since admission -IV fluids were discontinued patient was something wet, may have some pulmonary edema on chest x-ray along with infiltrates -patient OFF Levophed and vasopressin, will continue to maintain adequate MAP and SBP for adequate end organ perfusion. -continue Zosyn, Levaquin and vancomycin (01/27) -01/26: Blood cultures growing gram-positive cocci 1/2 bottles -01/26: Urine cultures growing Gram-negative bacilli -01/26: MRSA screen pending -01/27: Sputum cultures are ordered -patient was hypotensive in the ER despite receiving IV fluids and was started on Levophed after central line inserted -continue Levophed and maintain SBP > 90-100 mmHg - (3) Pneumonia: Qualifiers: Laterality: left Lung location: lower lobe of lung Pneumonia type: due to unspecified organism Qualified Code(s): J18.9 - Pneumonia, unspecified organism Code(s): J18.9 - Pneumonia, unspecified organism Status: Acute Assessment and Plan: Respiratory failure likely related to pneumonia, possible pulmonary edema -continue antibiotics as above -01/27 patient was given 1 dose of Lasix this morning as she had almost received a total of 4 L and IV fluid bolus and was on maintenance IV fluids at 150 mL/hour so probably has received over a L fluids since last night. -chest x-ray as above -treatment as above (4) Urinary tract infection: Qualifiers: Hematuria presence: without hematuria Urinary tract infection type: site unspecified Qualified Code(s): N39.0 - Urinary tract infection, site not specified Code(s): N39.0 - Urinary tract infection, site not specified Status: Acute Assessment and Plan: UA was reflective of UTI continue antibiotics as above -urine cultures growing Gram-negative bacilli (5) COPD (chronic obstructive pulmonary disease): Qualifiers: COPD t
[2023-01-28 09:33] LABS: Iron 12 ug/dL (37-170)
[2023-01-28 09:42] LABS: Percent Iron Saturation 6 % (20-50)
[2023-01-28] MEDS: FONDAPARINUX SODIUM 2.5 MG/0.5 ML SYRINGE SUB-Q (10:42)
[2023-01-28] MEDS: VANCOMYCIN 1,250 MG/NS 250 ML 1,250 MG/250 ML BAG 166.67 MG IVPB (10:43)
[2023-01-28 11:57] LABS: Glucose Point of Care 152 mg/dl (65-105)
--- NOTE | 2023-01-28 13:22 | PC.NURSE ---
Daughter and family to bedside. Dr Cannon updated family on plan of care and goals of care discussed. Patient now a Modified Code per Starr TIWARI, daughter.
[2023-01-28 17:52] LABS: Glucose Point of Care 184 mg/dl (65-105)
--- NOTE | 2023-01-28 19:02 | PC.NURSE ---
Updated Starr, daughter, on patient condition.
[2023-01-28] MEDS: levoFLOXacin 750 MG/D5W 150 ML 750 MG/150 ML BAG 100 MG IVPB (20:06)
[2023-01-28 20:22] LABS: Anion Gap 5 mmol/L (8-16); Blood Urea Nitrogen 27 mg/dL (7-17); Calcium 9.5 mg/dL (8.4-10.2); Carbon Dioxide 38 mmol/L (22-30); Chloride 94 mmol/L (98-107); Estimated CRCL calculation 61 ml/min; Estimated Glomerular Filt Rate > 60; Glucose 182 mg/dL (65-110); Potassium 3.1 mmol/L (3.4-5.0); Sodium 137 mmol/L (137-145)
[2023-01-28] MEDS: POTASSIUM CHLORIDE 20 MEQ PACKET (FOR LIQUID) 40 MEQ FEED TUBE (21:10)
[2023-01-28 22:21] LABS: Vancomycin Trough 18.1 ug/mL (10.0-20.0)
[2023-01-28] MEDS: VANCOMYCIN 1,250 MG/NS 250 ML 1,250 MG/250 ML BAG 166.7 MG IVPB (23:10)
[2023-01-28 23:38] LABS: Glucose Point of Care 207 mg/dl (65-105)
[2023-01-29] VITALS (35 sets, daily range): BP systolic 115–136; BP diastolic 66–85; PULSE 64–108; RESP 18–22; TEMP 36.8–37.7; O2SAT 98–100; BMI 26.2
[2023-01-29] MEDS: IPRATROPIUM BR 0.02% INH SOLN 0.5 MG/2.5 ML VIAL INHALATION ×5 (00:16→19:50)
[2023-01-29] MEDS: ALBUTEROL SULFATE NEB 2.5 MG/3 ML INH INHALATION ×5 (00:16→19:50)
[2023-01-29] MEDS: PIPERACILLN/TAZ 3.375GM/NS50ML 3.375 GM/50 ML BAG IVPB (03:31)
[2023-01-29 03:56] LABS: Immunochemical Fecal Occult Bl Negative (N)
[2023-01-29 03:57] LABS: IFOB Positive Control Positive
[2023-01-29] MEDS: ACETYLCYSTEINE 20% INHAL SOLN 800 MG/4 ML VIAL 200 MG INHALATION ×4 (04:08→19:50)
[2023-01-29 04:34] LABS: Alveolar/Arterial O2 Gradient 156.5 mmHg; Base Excess ABG 7.2 mEq/l (+/-2.0); Carboxyhemoglobin 0.3 % THb (0-2.0); Fractional Inspired Oxygen 40 %; HCO3 ABG 31.2 mEq/l (22.0-26.0); Methemoglobin ABG 0.4 %THb (0-1.5); Oxygen Content ABG 12.7 %vol (16.0-22.0); Oxygen Saturation ABG 96.6 % (95.0-100.0); PO2 ABG 80.4 mmHg (80.0-100.0); PO2 FiO2 Ratio Arterial Blood 2.01 %; Reduced Hemoglobin 4.3 %THb (0-5.0); Total Hemoglobin 9.4 g/dL (12.0-18.0); pH ABG 7.489 (7.350-7.450)
[2023-01-29 04:35] LABS: Device VENTILATOR; Modified Allen's Test Pass; Site Drawn RIGHT RADIAL
[2023-01-29 04:36] LABS: Arterial Blood Gas PEEP 8 cmH2O; Arterial Blood Gas Tidal Volume 400 ml; Arterial Blood Gas Vent Mode CMV; Arterial Blood Gas Ventilator rate 18 /MIN
[2023-01-29] MEDS: methylPREDNISolone SOD SUCC 125 MG VIAL 40 MG IV PUSH ×4 (06:12→23:49)
[2023-01-29] MEDS: CENTRAL LINE FLUSH 10 ML IV PUSH ×4 (06:13→21:10)
[2023-01-29 06:17] LABS: Basophils Percent Auto 0.1 % (0.2-1.2); Hemoglobin 8.1 g/dL (12.0-15.0); Immature Granulocyte Absolute 0.13 K/mm3 (0.00-0.031); Immature Granulocyte Percent A 0.8 % (0-0.5); Lymphocytes Absolute Auto 0.34 K/mm3 (0.9-3.2); Mean Corpuscular HGB Conc 31.2 g/dl (32-36); Mean Corpuscular Hemoglobin 29.2 pg (26-34); Mean Corpuscular Volume 93.9 fl (80-100); Mean Platelet Volume 9.2 fl (7.4-10.4); Monocytes Percent Auto 5.6 % (2.6-8.5); Neutrophils Absolute Auto 15.5 K/mm3 (1.3-6.7); Neutrophils Percent Auto 91.5 % (45.5-73.1); Nucleated Red Blood Cells Perc 0.2 % (0.0-0.2); Platelet Count Result 348 k/mm3 (150-375); Red Blood Count 2.77 M/mm3 (4.2-5.4); Red Cell Distribution Width 14.8 % (11.5-14.5); White Blood Count 16.9 K/mm3 (4.5-10.0)
[2023-01-29 06:25] LABS: Lactic Acid Reflex 1.1 mmol/L (0.7-2.0)
[2023-01-29 06:26] LABS: Alanine Aminotransferase 16 U/L (6-35); Albumin Level 3.5 g/dL (3.5-5.1); Alkaline Phosphatase 60 U/L (38-126); Anion Gap 3 mmol/L (8-16); Aspartate Amino Transferase 35 U/L (14-36); Bilirubin,Total 1.2 mg/dL (0.2-1.3); Blood Urea Nitrogen 29 mg/dL (7-17); Calcium 8.9 mg/dL (8.4-10.2); Carbon Dioxide 36 mmol/L (22-30); Chloride 97 mmol/L (98-107); Estimated CRCL calculation 61 ml/min; Estimated Glomerular Filt Rate > 60; Glucose 191 mg/dL (65-110); Magnesium 2.3 mg/dL (1.6-2.3); Phosphorus 1.6 mg/dL (2.5-4.5); Potassium 3.7 mmol/L (3.4-5.0); Sodium 136 mmol/L (137-145)
[2023-01-29] MEDS: DORNASE ALFA INH SOLN 1 MG/ML 2.5 ML AMP 2.5 MG INHALATION ×2 (08:16→19:50)
[2023-01-29] MEDS: POTASSIUM CHLORIDE 20 MEQ PACKET (FOR LIQUID) 40 MEQ FEED TUBE (08:30)
[2023-01-29] MEDS: FONDAPARINUX SODIUM 2.5 MG/0.5 ML SYRINGE SUB-Q (08:30)
[2023-01-29] MEDS: levETIRAcetam 250 MG TABLET 750 MG PO ×2 (08:30→21:09)
[2023-01-29] MEDS: MINERAL OIL/WHITE PETROLATUM OINTMENT 1 APPLIC EACH EYE ×2 (08:31→21:09)
[2023-01-29] MEDS: ACIDOPHILUS/BULGARICUS CHEWABLE TABLET 1 TABLET PO (08:31)
[2023-01-29] MEDS: PANTOPRAZOLE SODIUM IV 40 MG VIAL IV PUSH ×2 (08:31→21:09)
[2023-01-29] MEDS: POTASSIUM PHOS/SODIUM PHOS 250 MG TABLET PO (08:39)
[2023-01-29] MEDS: MEROPENEM 1 GM/NS 100 ML 1 GM/100 ML BAG IVPB ×3 (08:39→21:10)
--- NOTE | 2023-01-29 09:20 | PC.NURSE ---
Updated Starr, daughter, on patient status.
[2023-01-29] MEDS: VANCOMYCIN 1,250 MG/NS 250 ML 1,250 MG/250 ML BAG 166 MG IVPB ×2 (10:37→22:51)
--- NOTE | 2023-01-29 12:04 | WPDINTPN ---
Progress Note: A&P Assessment and Plan (1) Acute respiratory failure with hypoxia and hypercapnia: Code(s): J96.01 - Acute respiratory failure with hypoxia; J96.02 - Acute respiratory failure with hypercapnia Status: Acute Assessment and Plan: Acute hypercapnic respiratory failure with pCO2 154 on the ABG on admission -patient was a DNR and comfort measures only was placed on Vapotherm. 01/27: ABGs in the morning showed a pH of 6.79 with unreadable pCO2 and a PO2 of 57, discussed with patient's daughter Starr and updated her with patient's condition, she requested that we do everything and intubated the patient and the daughter rescinded the DNR status. -01/27 patient was successfully intubated and placed on mechanical ventilation, initially she had significant amount of secretions from the ET tube, peak airway pressures were significantly high, patient was paralyzed with rocuronium and then Nimbex infusion was started as patient was dyssynchronous with the ventilator. Peak airway pressures have decreased tremendously -currently on CMV mode of ventilation, peep of 5, % FiO2 45%. - ABGs reviewed -currently on CMV mode of ventilation, peep of 8 and 40% FiO2 -continue bronchodilators -patient on Mucomyst and Pulmozyme -sedated with fentanyl, Versed infusion, maintain RASS of 0 to -2 -Off Nimbex least 01/29 -chest x-ray this mornin.?Stable airspace opacities in right mid and lower lung zones and all left lung zones, consistent with pneumonia. 2. Stable small right and moderate-sized left pleural effusions. 3. Emphysema. (2) Septic shock: Code(s): A41.9 - Sepsis, unspecified organism; R65.21 - Severe sepsis with septic shock Status: Acute Assessment and Plan: Patient presented with altered mental status, leukocytosis, pneumonia, UTI, hypothermia -patient received a total of 4 L of IV fluid bolus (3 L in the ER and 1 L in the ICU) -patient was also on maintenance IV fluids at 150 mL/hour and must have received over 1 L fluids overnight. Total IV fluids were greater than 5 L since admission -IV fluids were discontinued patient was something wet, may have some pulmonary edema on chest x-ray along with infiltrates -OFF all pressors, will continue to maintain adequate MAP and SBP for adequate end organ perfusion. -of maintenance IV fluids -01/26: Blood cultures growing Staph hominis, 1 of 2 bottles -01/26: Urine cultures ESBL E coli -01/26: MRSA screen pending -01/27: Sputum cultures are ordered -01/29: Repeat blood cultures have been ordered Currently on Zosyn, Levaquin and vancomycin, will discontinue Zosyn and Levaquin -continue vancomycin (01/27), will add azithromycin and meropenem (01/29) (3) Pneumonia: Qualifiers: Laterality: left Lung location: lower lobe of lung Pneumonia type: due to unspecified organism Qualified Code(s): J18.9 - Pneumonia, unspecified organism Code(s): J18.9 - Pneumonia, unspecified organism Status: Acute Assessment and Plan: Respiratory failure likely related to pneumonia, possible pulmonary edema -continue antibiotics as above -01/27 patient was given 1 dose of Lasix this morning as she had almost received a total of 4 L and IV fluid bolus and was on maintenance IV fluids at 150 mL/hour so probably has received over a L fluids since last night. -chest x-ray as above -treatment as above (4) Urinary tract infection: Qualifiers: Hematuria presence: without hematuria Urinary tract infection type: site unspecified Qualified Code(s): N39.0 - Urinary tract infection, site not specified Code(s): N39.0 - Urinary tract infection, site not specified Status: Acute Assessment and Plan: UA was reflective of UTI continue antibiotics as above -urine cultures growing ESBL E coli, (5) COPD (chronic obstructive pulmonary disease): Qualifiers: COPD type: unspecified COPD Qualified Code(s): J44.9 - Chronic obstructi
[2023-01-29 12:18] LABS: Glucose Point of Care 234 mg/dl (65-105)
[2023-01-29] MEDS: INSULIN ASPART (*BKC) 100 UNITS/ML SUB-Q ×3 (13:01→23:50)
[2023-01-29 17:53] LABS: Glucose Point of Care 248 mg/dl (65-105)
[2023-01-29 19:12] LABS: Anion Gap 3 mmol/L (8-16); Blood Urea Nitrogen 33 mg/dL (7-17); Calcium 9.2 mg/dL (8.4-10.2); Carbon Dioxide 37 mmol/L (22-30); Chloride 99 mmol/L (98-107); Estimated CRCL calculation 72 ml/min; Estimated Glomerular Filt Rate > 60; Glucose 248 mg/dL (65-110); Magnesium 2.2 mg/dL (1.6-2.3); Sodium 139 mmol/L (137-145)
--- NOTE | 2023-01-29 19:15 | PC.NURSE ---
20 beat run of Vtach noted. Stat BMP sent to lab.
[2023-01-29] MEDS: AZITHROMYCIN 500 MG/NS 250 ML 500 MG/250 ML BAG 250 MG IVPB (21:09)
[2023-01-30] VITALS (37 sets, daily range): BP systolic 142–174; BP diastolic 52–96; PULSE 63–110; RESP 16–26; TEMP 36.8–37.8; O2SAT 93–100
[2023-01-30 00:26] LABS: Glucose Point of Care 225 mg/dl (65-105)
[2023-01-30] MEDS: IPRATROPIUM BR 0.02% INH SOLN 0.5 MG/2.5 ML VIAL INHALATION ×2 (02:16→08:40)
[2023-01-30] MEDS: ACETYLCYSTEINE 20% INHAL SOLN 800 MG/4 ML VIAL 200 MG INHALATION (02:17)
[2023-01-30] MEDS: ALBUTEROL SULFATE NEB 2.5 MG/3 ML INH INHALATION ×2 (02:17→08:40)
[2023-01-30 05:18] LABS: Basophils Percent Auto 0.1 % (0.2-1.2); Hematocrit 26.1 % (37.0-47.0); Hemoglobin 8.3 g/dL (12.0-15.0); Immature Granulocyte Absolute 0.07 K/mm3 (0.00-0.031); Immature Granulocyte Percent A 0.5 % (0-0.5); Lymphocytes Absolute Auto 0.39 K/mm3 (0.9-3.2); Mean Corpuscular HGB Conc 31.8 g/dl (32-36); Mean Corpuscular Hemoglobin 29.6 pg (26-34); Mean Corpuscular Volume 93.2 fl (80-100); Mean Platelet Volume 9.8 fl (7.4-10.4); Monocytes Absolute Auto 0.8 K/mm3 (0.1-0.6); Monocytes Percent Auto 6.1 % (2.6-8.5); Neutrophils Absolute Auto 11.6 K/mm3 (1.3-6.7); Neutrophils Percent Auto 90.3 % (45.5-73.1); Nucleated Red Blood Cells Absolute Auto 0.1 K/mm3 (0.0-0.012); Nucleated Red Blood Cells Perc 0.8 % (0.0-0.2); Platelet Count Result 383 k/mm3 (150-375); Red Cell Distribution Width 15.3 % (11.5-14.5); White Blood Count 12.8 K/mm3 (4.5-10.0)
[2023-01-30 05:23] LABS: Alanine Aminotransferase 14 U/L (6-35); Albumin Level 3.4 g/dL (3.5-5.1); Alkaline Phosphatase 61 U/L (38-126); Anion Gap 2 mmol/L (8-16); Aspartate Amino Transferase 22 U/L (14-36); Blood Urea Nitrogen 34 mg/dL (7-17); Calcium 9.1 mg/dL (8.4-10.2); Carbon Dioxide 35 mmol/L (22-30); Chloride 103 mmol/L (98-107); Estimated CRCL calculation 72 ml/min; Estimated Glomerular Filt Rate > 60; Glucose 226 mg/dL (65-110); Magnesium 2.1 mg/dL (1.6-2.3); Phosphorus 2.2 mg/dL (2.5-4.5); Potassium 3.9 mmol/L (3.4-5.0); Sodium 140 mmol/L (137-145)
[2023-01-30] MEDS: MEROPENEM 1 GM/NS 100 ML 1 GM/100 ML BAG IVPB ×3 (05:27→21:23)
[2023-01-30] MEDS: methylPREDNISolone SOD SUCC 125 MG VIAL 40 MG IV PUSH (05:27)
[2023-01-30 05:28] LABS: Alveolar/Arterial O2 Gradient 128.2 mmHg; Base Excess ABG 8.1 mEq/l (+/-2.0); Carboxyhemoglobin 0.3 % THb (0-2.0); Fractional Inspired Oxygen 35 %; HCO3 ABG 32.5 mEq/l (22.0-26.0); Methemoglobin ABG 0.4 %THb (0-1.5); Oxygen Content ABG 12.6 %vol (16.0-22.0); Oxygen Saturation ABG 94.7 % (95.0-100.0); Oxyhemoglobin 92.7 % THb (90.0-100.0); PCO2 ABG 45.2 mmHg (35.0-45.0); PO2 ABG 68.8 mmHg (80.0-100.0); PO2 FiO2 Ratio Arterial Blood 1.97 %; Reduced Hemoglobin 6.6 %THb (0-5.0); Total Hemoglobin 9.6 g/dL (12.0-18.0); pH ABG 7.475 (7.350-7.450)
[2023-01-30] MEDS: CENTRAL LINE FLUSH 10 ML IV PUSH ×4 (05:28→21:23)
[2023-01-30 05:29] LABS: Arterial Blood Gas PEEP 8 cmH2O; Arterial Blood Gas Tidal Volume 400 ml; Arterial Blood Gas Vent Mode CMV; Arterial Blood Gas Ventilator rate 18 /MIN; Device VENTILATOR; Site Drawn RIGHT BRACHIAL
[2023-01-30] MEDS: INSULIN ASPART (*BKC) 100 UNITS/ML SUB-Q ×5 (06:06→20:38)
--- NOTE | 2023-01-30 08:58 | WPDINTPN ---
Progress Note: A&P Assessment and Plan (1) Acute respiratory failure with hypoxia and hypercapnia: Code(s): J96.01 - Acute respiratory failure with hypoxia; J96.02 - Acute respiratory failure with hypercapnia Status: Acute Assessment and Plan: Acute hypercapnic respiratory failure with pCO2 154 on the ABG on admission -patient was a DNR and comfort measures only was placed on Vapotherm. 01/27: ABGs in the morning showed a pH of 6.79 with unreadable pCO2 and a PO2 of 57, discussed with patient's daughter Starr and updated her with patient's condition, she requested that we do everything and intubated the patient and the daughter rescinded the DNR status. -01/27 patient was successfully intubated and placed on mechanical ventilation, initially she had significant amount of secretions from the ET tube, peak airway pressures were significantly high, patient was paralyzed with rocuronium and then Nimbex infusion was started as patient was dyssynchronous with the ventilator. Peak airway pressures have decreased tremendously -currently on CMV mode of ventilation, peep of 5, % FiO2 35%. - Chest x-ray and ABG reviewed -continue bronchodilators -discontinue Mucomyst and Pulmozyme. decrease Solu-Medrol -sedation holiday. Switch Versed fentanyl to Precedex -Lasix IV -Off Nimbex least 01/29 (2) Septic shock: Code(s): A41.9 - Sepsis, unspecified organism; R65.21 - Severe sepsis with septic shock Status: Acute Assessment and Plan: Patient presented with altered mental status, leukocytosis, pneumonia, UTI, hypothermia -patient received a total of 4 L of IV fluid bolus (3 L in the ER and 1 L in the ICU) -patient was also on maintenance IV fluids at 150 mL/hour and must have received over 1 L fluids overnight. Total IV fluids were greater than 5 L since admission -IV fluids were discontinued patient was something wet, may have some pulmonary edema on chest x-ray along with infiltrates -OFF all pressors, will continue to maintain adequate MAP and SBP for adequate end organ perfusion. -of maintenance IV fluids -01/26: Blood cultures growing Staph hominis, 1 of 2 bottles -01/26: Urine cultures ESBL E coli -01/26: MRSA screen pending -01/27: Sputum cultures are ordered -01/29: Repeat blood cultures have been ordered Currently on Zosyn, Levaquin and vancomycin, will discontinue Zosyn and Levaquin -continue vancomycin (01/27), will add azithromycin and meropenem (01/29) (3) Pneumonia: Qualifiers: Laterality: left Lung location: lower lobe of lung Pneumonia type: due to unspecified organism Qualified Code(s): J18.9 - Pneumonia, unspecified organism Code(s): J18.9 - Pneumonia, unspecified organism Status: Acute Assessment and Plan: Respiratory failure likely related to pneumonia, possible pulmonary edema -continue antibiotics as above -01/27 patient was given 1 dose of Lasix this morning as she had almost received a total of 4 L and IV fluid bolus and was on maintenance IV fluids at 150 mL/hour so probably has received over a L fluids since last night. -continue Lasix (4) Urinary tract infection: Qualifiers: Hematuria presence: without hematuria Urinary tract infection type: site unspecified Qualified Code(s): N39.0 - Urinary tract infection, site not specified Code(s): N39.0 - Urinary tract infection, site not specified Status: Acute Assessment and Plan: UA was reflective of UTI continue antibiotics as above -urine cultures growing ESBL E coli, (5) COPD (chronic obstructive pulmonary disease): Qualifiers: COPD type: unspecified COPD Qualified Code(s): J44.9 - Chronic obstructive pulmonary disease, unspecified Code(s): J44.9 - Chronic obstructive pulmonary disease, unspecified Status: Acute Assessment and Plan: History of COPD and emphysema, on home O2 -continue Solu-Medrol, bronchodilators -[facility]
[2023-01-30 09:23] LABS: NT Pro B Type Natriuretic Pept 2540 pg/mL (19.9-100)
[2023-01-30] MEDS: FUROSEMIDE INJ 40 MG/4 ML VIAL IV PUSH ×2 (09:28→21:23)
[2023-01-30] MEDS: dexmedeTOMIDine 400 MCG/100 ML 400 MCG/100 ML BAG IV CONT (09:28)
[2023-01-30] MEDS: POTASSIUM PHOS,M-BASIC-D-BASIC 20 MMOL in SODIUM CHLORIDE 0.9% IV 250 ML 64.17 MMOL IVPB (09:29)
[2023-01-30] MEDS: levETIRAcetam 250 MG TABLET 750 MG PO ×2 (09:29→20:38)
[2023-01-30] MEDS: ACIDOPHILUS/BULGARICUS CHEWABLE TABLET 1 TABLET PO (09:29)
[2023-01-30] MEDS: MINERAL OIL/WHITE PETROLATUM OINTMENT 1 APPLIC EACH EYE ×2 (09:30→20:38)
[2023-01-30] MEDS: FONDAPARINUX SODIUM 2.5 MG/0.5 ML SYRINGE SUB-Q (09:30)
[2023-01-30] MEDS: PANTOPRAZOLE SODIUM IV 40 MG VIAL IV PUSH ×2 (09:30→20:38)
[2023-01-30 09:37] LABS: Glucose Point of Care 247 mg/dl (65-105)
[2023-01-30] MEDS: VANCOMYCIN 1,250 MG/NS 250 ML 1,250 MG/250 ML BAG 166 MG IVPB ×2 (11:07→22:14)
--- NOTE | 2023-01-30 11:49 | PCNFU ---
Nutrition Follow-Up Complete: Inadequate Energy Intake as related to mechanical ventilation as evidenced by suboptimal tube feeding rate. goal: Meet estimated nutritional needs patient is progressing towards goal. We will continue current goal. Pt current nutrition is Vital AF 1.2 at 60 ml/hr. Last recorded weight is 75.1 kg, up from 73.8 kg on admit. Bowel Motility:+BM reported 01/29 Labs Reviewed:Glu 226, BUN 34, Cr 0.5, Alb 3.4 Meds Noted:Precedex, Keppra, Protonix Skin: WNL Additional Notes: Patient remains on mechanical vent. Tube feedings are being tolerated of Vital AF 1.2 at 60 ml/hr with flush 30 ml q 4 hours. Total Nutrition: 1584 kcals/99 gms protein/1071 ml water. Tube feedings meeting 86% kcal needs and 96% protein needs. Agree with diet orders at this time. Will monitor weight, labs, skin, tube feeding tolerance every Sunday and Sunday.
[2023-01-30 12:48] LABS: Glucose Point of Care 226 mg/dl (65-105)
[2023-01-30 16:42] LABS: Glucose Point of Care 247 mg/dl (65-105)
[2023-01-30 20:37] LABS: Glucose Point of Care 271 mg/dl (65-105)
[2023-01-30] MEDS: AZITHROMYCIN 500 MG/NS 250 ML 500 MG/250 ML BAG 250 MG IVPB (20:37)
[2023-01-30] MEDS: ACETAMINOPHEN ELIXIR 325 MG/10.15 ML UDC 650 MG PO (21:23)
[2023-01-31] VITALS (25 sets, daily range): BP systolic 116–160; BP diastolic 71–89; PULSE 56–125; RESP 15–28; TEMP 37.1–37.9; O2SAT 96–100
[2023-01-31 00:13] LABS: Glucose Point of Care 199 mg/dl (65-105)
[2023-01-31] MEDS: dexmedeTOMIDine 400 MCG/100 ML 400 MCG/100 ML BAG 7.51 MCG IV CONT (00:28)
[2023-01-31 04:34] LABS: Alveolar/Arterial O2 Gradient 108.4 mmHg; Base Excess ABG 10.6 mEq/l (+/-2.0); Carboxyhemoglobin 0.3 % THb (0-2.0); Fractional Inspired Oxygen 35 %; HCO3 ABG 35.2 mEq/l (22.0-26.0); Methemoglobin ABG 0.2 %THb (0-1.5); Oxygen Content ABG 14.2 %vol (16.0-22.0); Oxyhemoglobin 95.4 % THb (90.0-100.0); PCO2 ABG 47.4 mmHg (35.0-45.0); PO2 ABG 86.1 mmHg (80.0-100.0); PO2 FiO2 Ratio Arterial Blood 2.46 %; Reduced Hemoglobin 4.1 %THb (0-5.0); Total Hemoglobin 10.5 g/dL (12.0-18.0); pH ABG 7.489 (7.350-7.450)
[2023-01-31 04:35] LABS: Arterial Blood Gas PEEP 8 cmH2O; Arterial Blood Gas Tidal Volume 350 ml; Arterial Blood Gas Vent Mode CMV; Arterial Blood Gas Ventilator rate 15 /MIN; Device VENTILATOR; Modified Allen's Test Pass; Site Drawn LEFT RADIAL
[2023-01-31 04:49] LABS: Basophils Percent Auto 0.1 % (0.2-1.2); Hemoglobin 8.9 g/dL (12.0-15.0); Immature Granulocyte Absolute 0.14 K/mm3 (0.00-0.031); Immature Granulocyte Percent A 0.8 % (0-0.5); Lymphocytes Absolute Auto 0.99 K/mm3 (0.9-3.2); Mean Corpuscular HGB Conc 31.8 g/dl (32-36); Mean Corpuscular Hemoglobin 29.4 pg (26-34); Mean Corpuscular Volume 92.4 fl (80-100); Mean Platelet Volume 9.4 fl (7.4-10.4); Monocytes Absolute Auto 1.8 K/mm3 (0.1-0.6); Monocytes Percent Auto 10.9 % (2.6-8.5); Neutrophils Absolute Auto 13.6 K/mm3 (1.3-6.7); Neutrophils Percent Auto 82.2 % (45.5-73.1); Nucleated Red Blood Cells Absolute Auto 0.2 K/mm3 (0.0-0.012); Nucleated Red Blood Cells Perc 1.3 % (0.0-0.2); Platelet Count Result 402 k/mm3 (150-375); Red Blood Count 3.03 M/mm3 (4.2-5.4); Red Cell Distribution Width 15.2 % (11.5-14.5); White Blood Count 16.6 K/mm3 (4.5-10.0)
[2023-01-31] MEDS: methylPREDNISolone SOD SUCC 40 MG VIAL IV PUSH (05:12)
[2023-01-31 05:13] LABS: Alanine Aminotransferase 14 U/L (6-35); Albumin Level 3.5 g/dL (3.5-5.1); Alkaline Phosphatase 59 U/L (38-126); Aspartate Amino Transferase 22 U/L (14-36); Blood Urea Nitrogen 33 mg/dL (7-17); Calcium 9.1 mg/dL (8.4-10.2); Carbon Dioxide > 40 mmol/L (22-30); Chloride 98 mmol/L (98-107); Estimated CRCL calculation 72 ml/min; Estimated Glomerular Filt Rate > 60; Glucose 206 mg/dL (65-110); Magnesium 1.9 mg/dL (1.6-2.3); Phosphorus 2.6 mg/dL (2.5-4.5); Potassium 3.4 mmol/L (3.4-5.0); Sodium 142 mmol/L (137-145)
[2023-01-31] MEDS: MEROPENEM 1 GM/NS 100 ML 1 GM/100 ML BAG IVPB ×3 (05:13→23:12)
[2023-01-31] MEDS: CENTRAL LINE FLUSH 10 ML IV PUSH ×4 (05:13→23:12)
[2023-01-31] MEDS: INSULIN ASPART (*BKC) 100 UNITS/ML SUB-Q ×3 (05:24→12:17)
[2023-01-31] MEDS: PANTOPRAZOLE SODIUM IV 40 MG VIAL IV PUSH ×2 (08:36→20:18)
[2023-01-31] MEDS: POTASSIUM CHLORIDE 20 MEQ PACKET (FOR LIQUID) 40 MEQ FEED TUBE ×2 (08:36→14:01)
[2023-01-31] MEDS: FONDAPARINUX SODIUM 2.5 MG/0.5 ML SYRINGE SUB-Q (08:36)
--- NOTE | 2023-01-31 08:36 | PCRCNOTE ---
per Dr. Pelaez's orders pt trialed on spont trial and titrating per pt's comfort, started pt at 5/8 within five minutes pt started to become tachypnea with RR at 38, increased pressure to 10. At 10/8 within five minutes pt started to become tachycardia, RN stepped in to help with anxiety and RT increased to a pressure of 12. Pt seems to be comfortable on theses settings at this time with a more stable heart rate and respirations.
[2023-01-31] MEDS: ACIDOPHILUS/BULGARICUS CHEWABLE TABLET 1 TABLET PO (08:37)
[2023-01-31] MEDS: levETIRAcetam 250 MG TABLET 750 MG PO ×2 (08:37→20:18)
[2023-01-31 08:44] LABS: Glucose Point of Care 247 mg/dl (65-105)
[2023-01-31] MEDS: polyethylene glycoL 3350 17 GM POWD.PACK FEED TUBE (08:45)
[2023-01-31] MEDS: FUROSEMIDE INJ 40 MG/4 ML VIAL IV PUSH (08:45)
[2023-01-31] MEDS: MINERAL OIL/WHITE PETROLATUM OINTMENT 1 APPLIC EACH EYE ×2 (08:56→20:18)
--- NOTE | 2023-01-31 09:51 | WPDINTPN ---
Progress Note: A&P Assessment and Plan (1) Acute respiratory failure with hypoxia and hypercapnia: Code(s): J96.01 - Acute respiratory failure with hypoxia; J96.02 - Acute respiratory failure with hypercapnia Status: Acute Assessment and Plan: Acute hypercapnic respiratory failure with pCO2 154 on the ABG on admission -patient was a DNR and comfort measures only was placed on Vapotherm. 01/27: ABGs in the morning showed a pH of 6.79 with unreadable pCO2 and a PO2 of 57, discussed with patient's daughter Starr and updated her with patient's condition, she requested that we do everything and intubated the patient and the daughter rescinded the DNR status. -01/27 patient was successfully intubated and placed on mechanical ventilation, initially she had significant amount of secretions from the ET tube, peak airway pressures were significantly high, patient was paralyzed with rocuronium and then Nimbex infusion was started as patient was dyssynchronous with the ventilator. Peak airway pressures have decreased tremendously. Patient was temporary 4 paralyzed with neuromuscular princess -improving now and currently on CMV mode of ventilation, peep of 8, % FiO2 30% - Chest x-ray and ABG reviewed -continue bronchodilators -off Mucomyst and Pulmozyme. -continue Solu-Medrol -sedation holiday performed and patient switched to PSV but she could only tolerate 10/8 for limited period of time before failing. -continue Lasix IV -obtain CT chest (2) Septic shock: Code(s): A41.9 - Sepsis, unspecified organism; R65.21 - Severe sepsis with septic shock Status: Acute Assessment and Plan: Patient presented with altered mental status, leukocytosis, pneumonia, UTI, hypothermia -patient received a total of 4 L of IV fluid bolus (3 L in the ER and 1 L in the ICU) -patient was also on maintenance IV fluids at 150 mL/hour and must have received over 1 L fluids overnight. Total IV fluids were greater than 5 L since admission -IV fluids were discontinued patient was something wet, may have some pulmonary edema on chest x-ray along with infiltrates -OFF all pressors, will continue to maintain adequate MAP and SBP for adequate end organ perfusion. -off maintenance IV fluids -01/26: Blood cultures growing Staph hominis, 1 of 2 bottles -01/26: Urine cultures ESBL E coli -01/26: MRSA screen pending -01/27: Sputum cultures are ordered -01/29: Repeat blood cultures growing Gram-positive cocci in 1/2 bottles Currently on Zosyn, Levaquin and vancomycin, will discontinue Zosyn and Levaquin -continue vancomycin (01/27), will add azithromycin and meropenem (01/29) (3) Pneumonia: Qualifiers: Laterality: left Lung location: lower lobe of lung Pneumonia type: due to unspecified organism Qualified Code(s): J18.9 - Pneumonia, unspecified organism Code(s): J18.9 - Pneumonia, unspecified organism Status: Acute Assessment and Plan: Respiratory failure likely related to pneumonia, possible pulmonary edema -continue antibiotics as above -01/27 patient was given 1 dose of Lasix this morning as she had almost received a total of 4 L and IV fluid bolus and was on maintenance IV fluids at 150 mL/hour so probably has received over a L fluids since last night. -continue Lasix (4) Urinary tract infection: Qualifiers: Hematuria presence: without hematuria Urinary tract infection type: site unspecified Qualified Code(s): N39.0 - Urinary tract infection, site not specified Code(s): N39.0 - Urinary tract infection, site not specified Status: Acute Assessment and Plan: UA was reflective of UTI continue antibiotics as above -urine cultures growing ESBL E coli, (5) COPD (chronic obstructive pulmonary disease): Qualifiers: COPD type: unspecified COPD Qualified Code(s): J44.9 - Chronic obstructive pulmonary disease, unspecified Code(s): J44.9 - Chronic obstructive pulmonary diseas
[2023-01-31] MEDS: INSULIN GLARGINE (*BKC) 100 UNITS/ML 15 UNITS SUB-Q (10:49)
[2023-01-31 10:53] LABS: Vancomycin Trough 24.1 ug/mL (10.0-20.0)
--- NOTE | 2023-01-31 11:08 | PCFNICU ---
ICU Rounding Note: Pt current nutrition is Vital AF 1.2 at 60 ml/hr Last recorded weight is 74 kg, stable. Bowel Motility:smears reported-miralax added today. Labs Reviewed:Glu 206, Cr 0.5,BUN 33, Hct 28.0,Hgb 8.9 Meds Noted:Precedex, Miralax, Keppra, NovoLog, Lantus Skin: WNL Additional Notes: Patient failed breathing trial today. Remains on mechanical vent and tube feedings of Vital AF 1.2 at 60 ml/hr. 200 ml residual reported, tube feedings continued. Flush 30 ml q 4 hours. Agree with diet orders at this time. Following daily in ICU rounds. Will monitor weight, labs, skin, tube feeding tolerance every Sunday and Sunday.
[2023-01-31 13:15] LABS: Glucose Point of Care 241 mg/dl (65-105)
[2023-01-31 17:06] LABS: Arterial Blood Gas Tidal Volume 400 ml
[2023-01-31 17:28] LABS: Glucose Point of Care 161 mg/dl (65-105)
[2023-01-31] MEDS: VANCOMYCIN 1,250 MG/NS 250 ML 1,250 MG/250 ML BAG 166.67 MG IVPB (17:47)
[2023-01-31] MEDS: AZITHROMYCIN 500 MG/NS 250 ML 500 MG/250 ML BAG 250 MG IVPB (20:17)
[2023-01-31 20:24] LABS: Glucose Point of Care 148 mg/dl (65-105)
[2023-01-31] MEDS: dexmedeTOMIDine 400 MCG/100 ML 400 MCG/100 ML BAG IV CONT (20:34)
[2023-02-01] VITALS (70 sets, daily range): BP systolic 96–137; BP diastolic 65–77; PULSE 50–105; RESP 15–23; TEMP 36.8–37.8; O2SAT 84–100
[2023-02-01 04:32] LABS: Alveolar/Arterial O2 Gradient 103.9 mmHg; Carboxyhemoglobin 0.3 % THb (0-2.0); Fractional Inspired Oxygen 30 %; Methemoglobin ABG 0.3 %THb (0-1.5); Oxygen Saturation ABG 92.7 % (95.0-100.0); Oxyhemoglobin 88.9 % THb (90.0-100.0); PCO2 ABG 42.7 mmHg (35.0-45.0); PO2 ABG 59.8 mmHg (80.0-100.0); PO2 FiO2 Ratio Arterial Blood 1.99 %; Reduced Hemoglobin 10.5 %THb (0-5.0); Total Hemoglobin 10.4 g/dL (12.0-18.0); pH ABG 7.493 (7.350-7.450)
[2023-02-01 04:33] LABS: Device VENTILATOR; Modified Allen's Test Pass; Site Drawn RIGHT BRACHIAL
[2023-02-01 04:34] LABS: Arterial Blood Gas PEEP 8 cmH2O; Arterial Blood Gas Tidal Volume 350 ml; Arterial Blood Gas Vent Mode CMV; Arterial Blood Gas Ventilator rate 15 /MIN
[2023-02-01] MEDS: MEROPENEM 1 GM/NS 100 ML 1 GM/100 ML BAG IVPB ×3 (06:29→22:00)
[2023-02-01 06:34] LABS: Basophils Percent Auto 0.2 % (0.2-1.2); Eosinophils Absolute Auto 0.1 K/mm3 (0-0.3); Eosinophils Percent Auto 0.3 % (0-4.4); Hematocrit 28.6 % (37.0-47.0); Immature Granulocyte Absolute 0.19 K/mm3 (0.00-0.031); Lymphocytes Absolute Auto 1.77 K/mm3 (0.9-3.2); Lymphocytes Percent Auto 9.4 % (18.3-44.2); Mean Corpuscular HGB Conc 31.5 g/dl (32-36); Mean Corpuscular Hemoglobin 29.3 pg (26-34); Mean Corpuscular Volume 93.2 fl (80-100); Mean Platelet Volume 9.3 fl (7.4-10.4); Monocytes Percent Auto 10.5 % (2.6-8.5); Neutrophils Absolute Auto 14.7 K/mm3 (1.3-6.7); Neutrophils Percent Auto 78.6 % (45.5-73.1); Nucleated Red Blood Cells Absolute Auto 0.1 K/mm3 (0.0-0.012); Nucleated Red Blood Cells Perc 0.7 % (0.0-0.2); Platelet Count Result 406 k/mm3 (150-375); Red Blood Count 3.07 M/mm3 (4.2-5.4); Red Cell Distribution Width 15.4 % (11.5-14.5); White Blood Count 18.8 K/mm3 (4.5-10.0)
[2023-02-01 06:46] LABS: Alanine Aminotransferase 15 U/L (6-35); Albumin Level 3.2 g/dL (3.5-5.1); Alkaline Phosphatase 67 U/L (38-126); Aspartate Amino Transferase 20 U/L (14-36); Bilirubin,Total 0.9 mg/dL (0.2-1.3); Blood Urea Nitrogen 40 mg/dL (7-17); Carbon Dioxide > 40 mmol/L (22-30); Chloride 101 mmol/L (98-107); Estimated CRCL calculation 72 ml/min; Estimated Glomerular Filt Rate > 60; Glucose 145 mg/dL (65-110); Phosphorus 2.4 mg/dL (2.5-4.5); Potassium 3.8 mmol/L (3.4-5.0); Sodium 143 mmol/L (137-145)
[2023-02-01] MEDS: CENTRAL LINE FLUSH 10 ML IV PUSH ×4 (06:46→23:12)
[2023-02-01] MEDS: methylPREDNISolone SOD SUCC 40 MG VIAL IV PUSH (06:46)
[2023-02-01 08:20] LABS: Glucose Point of Care 144 mg/dl (65-105)
[2023-02-01] MEDS: levETIRAcetam 250 MG TABLET 750 MG PO ×2 (08:40→20:12)
[2023-02-01] MEDS: FUROSEMIDE INJ 40 MG/4 ML VIAL IV PUSH (08:41)
[2023-02-01] MEDS: ACIDOPHILUS/BULGARICUS CHEWABLE TABLET 1 TABLET PO (08:41)
[2023-02-01] MEDS: INSULIN GLARGINE (*BKC) 100 UNITS/ML 15 UNITS SUB-Q (08:42)
[2023-02-01] MEDS: PANTOPRAZOLE SODIUM IV 40 MG VIAL IV PUSH ×2 (08:44→20:11)
[2023-02-01] MEDS: MINERAL OIL/WHITE PETROLATUM OINTMENT 1 APPLIC EACH EYE ×2 (08:45→20:12)
[2023-02-01] MEDS: POTASSIUM PHOS,M-BASIC-D-BASIC 15 MMOL in SODIUM CHLORIDE 0.9% IV 250 ML 63.75 MMOL IVPB (09:02)
[2023-02-01 09:18] LABS: Glucose 144 mg/dL (65-110); Lactate Dehydrogenase 204 U/L (120-246)
--- NOTE | 2023-02-01 09:19 | PC.NURSE ---
Updated daughter, Starr, on plan of care for the shift.
--- NOTE | 2023-02-01 10:26 | PCFNICU ---
ICU Rounding Note: Pt current nutrition is Vital AF 1.2 @ 60 ml/h: 1584 kcal, 99 g protein, 1070 ml free water. Tolerating well. Flush 30 ml q 4 h. Nutrition recommendation: Continue with same tube feeding orders, no changes. Last recorded weight is 70.5 kg. Bowel Motility: +1 BM 02/01/23 Labs Reviewed: Hgb 9.0. Hct 28.6, Alb 3.2, BUN 40, Cre 0.5, Glu 144, PO4 2.4 Meds Noted: Precedex, Keppra, Miralax, merepenem Skin: WNL Additional Notes: Failed breathing trial. Remains on mechanical vent today. Tolerating tube feedings, having bowel movements. No changes recommended to orders. Agree with current orders. Following daily in ICU rounds. Will monitor weight, labs, skin, tube feeding tolerance every Sunday and Sunday..
--- NOTE | 2023-02-01 10:39 | WPDINTPN ---
Progress Note: A&P Assessment and Plan (1) Acute respiratory failure with hypoxia and hypercapnia: Code(s): J96.01 - Acute respiratory failure with hypoxia; J96.02 - Acute respiratory failure with hypercapnia Status: Acute Assessment and Plan: Acute hypercapnic respiratory failure with pCO2 154 on the ABG on admission -patient was a DNR and comfort measures only was placed on Vapotherm. 01/27: ABGs in the morning showed a pH of 6.79 with unreadable pCO2 and a PO2 of 57, discussed with patient's daughter Starr and updated her with patient's condition, she requested that we do everything and intubated the patient and the daughter rescinded the DNR status. -01/27 patient was successfully intubated and placed on mechanical ventilation, initially she had significant amount of secretions from the ET tube, peak airway pressures were significantly high, patient was paralyzed with rocuronium and then Nimbex infusion was started as patient was dyssynchronous with the ventilator. Peak airway pressures have decreased tremendously. Patient was temporary 4 paralyzed with neuromuscular princess -improving now and currently on CMV mode of ventilation, peep of 8, % FiO2 30% -failed PSV trial yesterday and today. She could only tolerate PSV of 12/8 for an hour - Chest x-ray and ABG reviewed -continue bronchodilators -off Mucomyst and Pulmozyme. -continue Solu-Medrol through today -continue Lasix IV Chest CT IMPRESSION: 1. Airspace opacities in right lower lobe and left lung, consistent with pneumonia. 2. Small right and moderate-sized left pleural effusions. 3. Severe emphysema Will request IR for left-sided thoracentesis bold diagnostic and therapeutic (2) Septic shock: Code(s): A41.9 - Sepsis, unspecified organism; R65.21 - Severe sepsis with septic shock Status: Acute Assessment and Plan: Patient presented with altered mental status, leukocytosis, pneumonia, UTI, hypothermia -patient received a total of 4 L of IV fluid bolus (3 L in the ER and 1 L in the ICU) -patient was also on maintenance IV fluids at 150 mL/hour and must have received over 1 L fluids overnight. Total IV fluids were greater than 5 L since admission -IV fluids were discontinued patient was something wet, may have some pulmonary edema on chest x-ray along with infiltrates -OFF all pressors, will continue to maintain adequate MAP and SBP for adequate end organ perfusion. -off maintenance IV fluids -01/26: Blood cultures growing Staph hominis, 1 of 2 bottles -01/26: Urine cultures ESBL E coli -01/26: MRSA screen pending -01/27: Sputum cultures are ordered -01/29: Repeat blood cultures growing Gram-positive cocci in 1/2 bottles Currently on Zosyn, Levaquin and vancomycin, will discontinue Zosyn and Levaquin -continue vancomycin (01/27) and meropenem (01/29). Completeda course of azithromycin (3) Pneumonia: Qualifiers: Laterality: left Lung location: lower lobe of lung Pneumonia type: due to unspecified organism Qualified Code(s): J18.9 - Pneumonia, unspecified organism Code(s): J18.9 - Pneumonia, unspecified organism Status: Acute Assessment and Plan: Respiratory failure likely related to pneumonia, possible pulmonary edema -continue antibiotics as above -01/27 patient was given 1 dose of Lasix this morning as she had almost received a total of 4 L and IV fluid bolus and was on maintenance IV fluids at 150 mL/hour so probably has received over a L fluids since last night. 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
[2023-02-01] MEDS: INSULIN ASPART (*BKC) 100 UNITS/ML SUB-Q (12:03)
[2023-02-01] MEDS: VANCOMYCIN 1,250 MG/NS 250 ML 1,250 MG/250 ML BAG 166 MG IVPB (12:04)
[2023-02-01 12:08] LABS: Glucose Point of Care 206 mg/dl (65-105)
[2023-02-01 12:54] LABS: Blood Urea Nitrogen 40 mg/dL (7-17); Calcium 9.1 mg/dL (8.4-10.2); Carbon Dioxide > 40 mmol/L (22-30); Chloride 97 mmol/L (98-107); Estimated CRCL calculation 72 ml/min; Estimated Glomerular Filt Rate > 60; Glucose 181 mg/dL (65-110); Magnesium 1.9 mg/dL (1.6-2.3); Sodium 141 mmol/L (137-145)
[2023-02-01 15:33] LABS: pH Pleural Fluid > 0.000 (7.210-7.500)
[2023-02-01 17:00] LABS: Glucose Point of Care 146 mg/dl (65-105)
--- NOTE | 2023-02-01 17:15 | PM.IMPN ---
Progress Note: A&P Assessment and Plan (1) Acute respiratory failure with hypoxia and hypercapnia: Code(s): J96.01 - Acute respiratory failure with hypoxia; J96.02 - Acute respiratory failure with hypercapnia Status: Acute (2) Pneumonia: Qualifiers: Laterality: left Lung location: lower lobe of lung Pneumonia type: due to unspecified organism Qualified Code(s): J18.9 - Pneumonia, unspecified organism Code(s): J18.9 - Pneumonia, unspecified organism Status: Acute (3) Pleural effusion on left: Code(s): J90 - Pleural effusion, not elsewhere classified Status: Acute (4) COPD (chronic obstructive pulmonary disease): Qualifiers: COPD type: unspecified COPD Qualified Code(s): J44.9 - Chronic obstructive pulmonary disease, unspecified Code(s): J44.9 - Chronic obstructive pulmonary disease, unspecified Status: Acute Plan 77F w/ PMH emphysema, HTN, PNA, seizures presented unresponsive from assisted. Intubated on 01/27 05/25 to acute hypoxic hypercapnic respiratory failure she remains intubated, failed SBT due to agitation. critical care to manage. agree with treating with diuretic, broad spectrum abx w/ repeat blood cultures, nebs and steroids. s/p thoracentesis today, will follow results. also being treated for UTI fondaparinux for DVT prophylaxis protonix tube feeds guarded condition no CPR, modified code. Subjective Date/time seen: 02/01/23 17:15 Interval history: NAOE. pt failed weaning trial due to agitation today Review of Systems Review of Systems: unable to obtain due to vent and sedation Exam Const: Other: CAM +, RASS -1 Eyes: Pupils: Equal, round and reactive pupils present Neck: Other: ETT Resp: Other: coarse breath sounds b/l Cardio: Rate: regular rate Rhythm: regular rhythm GI: GI Palp: Yes Soft to palpation Extrem: General: no edema Objective Data Vital Signs Vital Signs: Vital Signs - 24 hr 01/31/23 17:54 01/31/23 18:00 01/31/23 18:00 Temperature 100 F H Pulse Rate 69 68 68 Respiratory Rate 17 Blood Pressure 131/77 Pulse Oximetry 100 99 Oxygen Delivery Mechanical Ventilation Fraction of Inspired Oxygen 30 01/31/23 20:27 01/31/23 20:00 01/31/23 20:00 Temperature Pulse Rate 70 Respiratory Rate Blood Pressure Pulse Oximetry 98 Oxygen Delivery Mechanical Ventilation Mechanical Ventilation Fraction of Inspired Oxygen 30 30 30 01/31/23 20:00 01/31/23 22:00 01/31/23 22:42 Temperature Pulse Rate 64 64 63 Respiratory Rate Blood Pressure Pulse Oximetry 98 Oxygen Delivery Mechanical Ventilation Fraction of Inspired Oxygen 30 01/31/23 20:00 01/31/23 22:00 02/01/23 00:00 Temperature 98.7 F Pulse Rate 65 73 Respiratory Rate 16 16 Blood Pressure 145/78 H 134/71 Pulse Oximetry 99 97 Oxygen Delivery Fraction of Inspired Oxygen 30 02/01/23 00:00 02/01/23 01:49 02/01/23 00:00 Temperature Pulse Rate 72 62 Respiratory Rate Blood Pressure Pulse Oximetry 99 Oxygen Delivery Mechanical Ventilation Mechanical Ventilation Fraction of Inspired Oxygen 30 30 02/01/23 02:00 02/01/23 00:00 02/01/23 02:00 Temperature 100.0 F H 99.8 F H Pulse Rate 67 64 76 Respiratory Rate 15 18 Blood Pressure 133/77 137/77 Pulse Oximetry 98 92 Oxygen Delivery Fraction of Inspired Oxygen 02/01/23 04:26 02/01/23 04:00 02/01/23 04:00 Temperature Pulse Rate 74 73 Respiratory Rate Blood Pressure Pulse Oximetry 98 Oxygen Delivery Mechanical Ventilation Mechanical Ventilation Fraction of Inspired Oxygen 30 30 02/01/23 04:00 02/01/23 04:00 02/01/23 06:00 Temperature 99.8 F H Pulse Rate 71 84 Respiratory Rate 15 Blood Pressure 119/77 Pulse Oximetry 97 Oxygen Delivery Fraction of Inspired Oxygen 30 02/01/23 06:00 02/01/23 07:25 02/01/23 07:52 Temperature 99.9
[2023-02-01] MEDS: dexmedeTOMIDine 400 MCG/100 ML 400 MCG/100 ML BAG IV CONT (20:14)
[2023-02-01 20:26] LABS: Glucose Point of Care 123 mg/dl (65-105)
[2023-02-02] VITALS (49 sets, daily range): BP systolic 98–125; BP diastolic 65–86; PULSE 63–106; RESP 15–27; TEMP 37.1–37.9; O2SAT 91–100
[2023-02-02 00:58] LABS: Glucose Point of Care 137 mg/dl (65-105)
[2023-02-02 04:59] LABS: Glucose Point of Care 160 mg/dl (65-105)
[2023-02-02 05:04] LABS: Hematocrit 28.5 % (37.0-47.0); Hemoglobin 8.9 g/dL (12.0-15.0); Mean Corpuscular HGB Conc 31.2 g/dl (32-36); Mean Corpuscular Hemoglobin 29.2 pg (26-34); Mean Corpuscular Volume 93.4 fl (80-100); Mean Platelet Volume 9.5 fl (7.4-10.4); Platelet Count Result 454 k/mm3 (150-375); Red Blood Count 3.05 M/mm3 (4.2-5.4); Red Cell Distribution Width 15.4 % (11.5-14.5); White Blood Count 19.6 K/mm3 (4.5-10.0)
[2023-02-02 05:17] LABS: Alveolar/Arterial O2 Gradient 109.4 mmHg; Base Excess ABG 13.1 mEq/l (+/-2.0); Carboxyhemoglobin 0.3 % THb (0-2.0); Fractional Inspired Oxygen 30 %; Methemoglobin ABG 0.4 %THb (0-1.5); Oxygen Content ABG 12.5 %vol (16.0-22.0); Oxygen Saturation ABG 90.2 % (95.0-100.0); PCO2 ABG 44.7 mmHg (35.0-45.0); PO2 FiO2 Ratio Arterial Blood 1.73 %; Reduced Hemoglobin 13.2 %THb (0-5.0); Total Hemoglobin 10.3 g/dL (12.0-18.0)
[2023-02-02 05:18] LABS: Oxyhemoglobin 86.1 % THb (90.0-100.0); pH ABG 7.536 (7.350-7.450)
[2023-02-02 05:19] LABS: Arterial Blood Gas PEEP 8 cmH2O; Arterial Blood Gas Tidal Volume 350 ml; Arterial Blood Gas Vent Mode CMV; Arterial Blood Gas Ventilator rate 15 /MIN; Device VENTILATOR; Modified Allen's Test Unable to perform; Site Drawn LEFT RADIAL
[2023-02-02] MEDS: MEROPENEM 1 GM/NS 100 ML 1 GM/100 ML BAG IVPB ×3 (05:19→21:48)
[2023-02-02] MEDS: CENTRAL LINE FLUSH 10 ML IV PUSH ×4 (05:21→21:49)
[2023-02-02] MEDS: VANCOMYCIN 1,250 MG/NS 250 ML 1,250 MG/250 ML BAG 166.67 MG IVPB (05:23)
[2023-02-02 05:31] LABS: Alanine Aminotransferase 13 U/L (6-35); Alkaline Phosphatase 71 U/L (38-126); Anion Gap 2 mmol/L (8-16); Aspartate Amino Transferase 20 U/L (14-36); Bilirubin,Total 0.9 mg/dL (0.2-1.3); Blood Urea Nitrogen 44 mg/dL (7-17); Calcium 8.5 mg/dL (8.4-10.2); Carbon Dioxide 39 mmol/L (22-30); Chloride 101 mmol/L (98-107); Estimated CRCL calculation 88 ml/min; Estimated Glomerular Filt Rate > 60; Glucose 159 mg/dL (65-110); Potassium 3.2 mmol/L (3.4-5.0); Sodium 142 mmol/L (137-145)
--- NOTE | 2023-02-02 07:35 | PM.IMPN ---
Progress Note: A&P Assessment and Plan (1) Hyperglycemia: Code(s): R73.9 - Hyperglycemia, unspecified Status: Acute (2) Acute respiratory failure with hypoxia and hypercapnia: Code(s): J96.01 - Acute respiratory failure with hypoxia; J96.02 - Acute respiratory failure with hypercapnia Status: Acute (3) Pneumonia: Qualifiers: Laterality: left Lung location: lower lobe of lung Pneumonia type: due to unspecified organism Qualified Code(s): J18.9 - Pneumonia, unspecified organism Code(s): J18.9 - Pneumonia, unspecified organism Status: Acute (4) Pleural effusion on left: Code(s): J90 - Pleural effusion, not elsewhere classified Status: Acute (5) Urinary tract infection: Qualifiers: Hematuria presence: without hematuria Urinary tract infection type: site unspecified Qualified Code(s): N39.0 - Urinary tract infection, site not specified Code(s): N39.0 - Urinary tract infection, site not specified Status: Acute (6) COPD (chronic obstructive pulmonary disease): Qualifiers: COPD type: unspecified COPD Qualified Code(s): J44.9 - Chronic obstructive pulmonary disease, unspecified Code(s): J44.9 - Chronic obstructive pulmonary disease, unspecified Status: Acute (7) DNR (do not resuscitate): Code(s): Z66 - Do not resuscitate Status: Acute Plan 77F w/ PMH emphysema, HTN, PNA, seizures presented unresponsive from fdc. Intubated on 01/27 2/2 to acute hypoxic hypercapnic respiratory failure Pt is currently on PEEP 8. Reportedly to go for SBT today. her blood pressure maintains and lungs still slightly wet so diuresis could continue, although she did not fail SBT due to hypoxia but rather agitation so may not need to be too aggressive with that. elevated WBC, will check procalcitonin tomorrow AM to help guide mgmt. she did received many days of solumedrol. no wheezing at the moment. she is on precedex 0.4mcg Pending pleural fluid studies. ctm BS. currently in acceptable range. goal 140-180 critical care managing. fondaparinux for DVT? prophylaxis protonix tube feeds guarded condition no CPR, modified code. over 35 minutes spent in chart review, examination, and planning Subjective Date/time seen: 02/02/23 07:35 Interval history: NAOE. pt is intubated and sedated. Review of Systems Review of Systems: unable to obtain Exam Const: Other: CAM +, RASS -2 Eyes: Sclera: sclerae normal Pupils: Equal, round and reactive pupils present Neck: Neck: supple Carotids: no bruits Resp: Other: mechanical ventilation. minimal wet crackles diffusely Cardio: Rate: regular rate Rhythm: abnormal rhythm Heart sounds: no gallops, no murmurs and no rubs GI: Inspection: non-distended GI Palp: Yes Soft to palpation and No Tenderness to palpation present (GI) Skin: General skin exam: no erythema Extrem: General: no edema Objective Data Vital Signs Vital Signs: Vital Signs - 24 hr 02/01/23 07:52 02/01/23 08:00 02/01/23 08:00 Temperature 99.6 F Pulse Rate 71 72 Respiratory Rate 19 Blood Pressure 132/75 Pulse Oximetry 91 96 Oxygen Delivery Mechanical Ventilation Fraction of Inspired Oxygen 30 02/01/23 08:00 02/01/23 08:30 02/01/23 10:05 Temperature Pulse Rate 96 92 Respiratory Rate Blood Pressure Pulse Oximetry 96 97 Oxygen Delivery Mechanical Ventilation Mechanical Ventilation Fraction of Inspired Oxygen 30 30 30 02/01/23 13:00 02/01/23 10:00 02/01/23 12:00 Temperature Pulse Rate 59 L 89 58 L Respiratory Rate Blood Pressure Pulse Oximetry 99 Oxygen Delivery Mechanical Ventilation Fraction of Inspired Oxygen 30 02/01/23 12:00 02/01/23 12:00 02/01/23 14:00 Temperature Pulse Rate 59 L Respiratory Rate Blood Pressure Pulse Oximetry 99 Oxygen Delivery Mechanical Ventilation Fraction o
[2023-02-02 08:15] LABS: Phosphorus 3.2 mg/dL (2.5-4.5)
[2023-02-02] MEDS: levETIRAcetam 250 MG TABLET 750 MG PO ×2 (09:02→20:23)
[2023-02-02 09:03] LABS: Glucose Point of Care 185 mg/dl (65-105)
[2023-02-02] MEDS: INSULIN GLARGINE (*BKC) 100 UNITS/ML 15 UNITS SUB-Q (09:03)
[2023-02-02] MEDS: ACIDOPHILUS/BULGARICUS CHEWABLE TABLET 1 TABLET PO (09:03)
[2023-02-02] MEDS: PANTOPRAZOLE SODIUM IV 40 MG VIAL IV PUSH ×2 (09:04→20:23)
[2023-02-02] MEDS: MINERAL OIL/WHITE PETROLATUM OINTMENT 1 APPLIC EACH EYE ×2 (09:04→20:23)
--- NOTE | 2023-02-02 09:06 | WPDINTPN ---
Progress Note: A&P Assessment and Plan (1) Acute respiratory failure with hypoxia and hypercapnia: Code(s): J96.01 - Acute respiratory failure with hypoxia; J96.02 - Acute respiratory failure with hypercapnia Status: Acute Assessment and Plan: Acute hypercapnic respiratory failure with pCO2 154 on the ABG on admission -patient was a DNR and comfort measures only was placed on Vapotherm. 01/27: ABGs in the morning showed a pH of 6.79 with unreadable pCO2 and a PO2 of 57, discussed with patient's daughter Starr and updated her with patient's condition, she requested that we do everything and intubated the patient and the daughter rescinded the DNR status. -01/27 patient was successfully intubated and placed on mechanical ventilation, initially she had significant amount of secretions from the ET tube, peak airway pressures were significantly high, patient was paralyzed with rocuronium and then Nimbex infusion was started as patient was dyssynchronous with the ventilator. Peak airway pressures have decreased tremendously. Patient was temporary 4 paralyzed with neuromuscular princess -improving now and currently on CMV mode of ventilation, peep of 8, % FiO2 30% - 02/01 left thoracentesis and 500 mL of fluid was removed. Fluid studies are pending -failed PSV trial for last 3 days. She could only tolerate PSV of 12/8 for an hour. Try PSV again today - Chest x-ray and ABG reviewed -continue bronchodilators -off Mucomyst and Pulmozyme. -completed Solu-Medrol -continue Lasix IV Chest CT IMPRESSION: 1. Airspace opacities in right lower lobe and left lung, consistent with pneumonia. 2. Small right and moderate-sized left pleural effusions. 3. Severe emphysema (2) Septic shock: Code(s): A41.9 - Sepsis, unspecified organism; R65.21 - Severe sepsis with septic shock Status: Acute Assessment and Plan: Patient presented with altered mental status, leukocytosis, pneumonia, UTI, hypothermia -patient received a total of 4 L of IV fluid bolus (3 L in the ER and 1 L in the ICU) -patient was also on maintenance IV fluids at 150 mL/hour and must have received over 1 L fluids overnight. Total IV fluids were greater than 5 L since admission -IV fluids were discontinued patient was something wet, may have some pulmonary edema on chest x-ray along with infiltrates -OFF all pressors, will continue to maintain adequate MAP and SBP for adequate end organ perfusion. -off maintenance IV fluids -01/26: Blood cultures growing Staph hominis, 1 of 2 bottles -01/26: Urine cultures ESBL E coli -01/26: MRSA screen pending -01/27: Sputum cultures are ordered -01/29: Repeat blood cultures growing Staph capitis in 1/2 bottles Currently on Zosyn, Levaquin and vancomycin, will discontinue Zosyn and Levaquin -continue meropenem (01/29). Completed course of azithromycin. Vancomycin discontinued 02/02 (3) Pneumonia: Qualifiers: Laterality: left Lung location: lower lobe of lung Pneumonia type: due to unspecified organism Qualified Code(s): J18.9 - Pneumonia, unspecified organism Code(s): J18.9 - Pneumonia, unspecified organism Status: Acute Assessment and Plan: Respiratory failure likely related to pneumonia, possible pulmonary edema -continue antibiotics as above -01/27 patient was given 1 dose of Lasix this morning as she had almost received a total of 4 L and IV fluid bolus and was on maintenance IV fluids at 150 mL/hour so probably has received over a L fluids since last night. -continue Lasix (4) Urinary tract infection: Qualifiers: Hematuria presence: without hematuria Urinary tract infection type: site unspecified Qualified Code(s): N39.0 - Urinary tract infection, site not specified Code(s): N39.0 - Urinary tract infection, site not specified Status: Acute Assessment and Plan: UA was reflective of UTI continue antibiotics as above -urine cultures growing ESBL E coli
[2023-02-02] MEDS: KCL 40 MEQ/WATER 100 ML 100 ML 25 ML IVPB (09:07)
[2023-02-02] MEDS: POTASSIUM BICARBONATE 25 MEQ TABEF 50 MEQ PO (09:17)
--- NOTE | 2023-02-02 10:46 | PCFNICU ---
ICU Rounding Note: Pt current nutrition is Vital AF 1.2 at 60 ml/hr. Last recorded weight is 70.1 kg, down from 73.8 kg on admit. Bowel Motility:+BM reported 02/02 Labs Reviewed:Glu 159, BUN 44, Cr 0.4,K 3.2,Alb 3.0 Meds Noted:Precedex,Keppra, Lantus, Miralax Skin: WNL Additional Notes:Patient remains on mechanical vent. Tube feedings are being tolerating of Vital AF 1.2 at 60 ml/hr which are providing 1584 kcals/99 gms protein/1071 ml water. Tube feedings meeting 90% kcal needs at 25 kcal/gm and 96% protein needs at 1.4-1.6 gm/kg. Flush 30 ml q 4 hours. Plans for spontaneous breathing trial today. Agree with diet orders. Following daily in ICU rounds. Will monitor weight, labs, skin, tube feeding tolerance every Sunday and Sunday.
[2023-02-02] MEDS: dexmedeTOMIDine 400 MCG/100 ML 400 MCG/100 ML BAG 9.39 MCG IV CONT (11:12)
[2023-02-02] MEDS: FUROSEMIDE INJ 40 MG/4 ML VIAL IV PUSH (12:45)
[2023-02-02] MEDS: ACETAMINOPHEN ELIXIR 325 MG/10.15 ML UDC 650 MG PO (12:48)
[2023-02-02 13:10] LABS: Glucose Point of Care 174 mg/dl (65-105)
[2023-02-02 16:31] LABS: Glucose Point of Care 153 mg/dl (65-105)
[2023-02-02 20:39] LABS: Glucose Point of Care 137 mg/dl (65-105)
[2023-02-03] VITALS (36 sets, daily range): BP systolic 94–155; BP diastolic 64–89; PULSE 71–125; RESP 15–29; TEMP 37.2–37.8; O2SAT 91–99
[2023-02-03 00:15] LABS: Glucose Point of Care 91 mg/dl (65-105)
[2023-02-03 04:48] LABS: Alveolar/Arterial O2 Gradient 142.4 mmHg; Base Excess ABG 7.6 mEq/l (+/-2.0); Carboxyhemoglobin 0.1 % THb (0-2.0); Fractional Inspired Oxygen 35 %; HCO3 ABG 31.2 mEq/l (22.0-26.0); Methemoglobin ABG 0.4 %THb (0-1.5); Oxygen Content ABG 13.3 %vol (16.0-22.0); Oxygen Saturation ABG 93.4 % (95.0-100.0); Oxyhemoglobin 88.9 % THb (90.0-100.0); PO2 ABG 60.7 mmHg (80.0-100.0); PO2 FiO2 Ratio Arterial Blood 1.73 %; Reduced Hemoglobin 10.6 %THb (0-5.0); Total Hemoglobin 10.6 g/dL (12.0-18.0)
[2023-02-03 04:51] LABS: Device VENTILATOR; Modified Allen's Test Pass; Site Drawn LEFT RADIAL
[2023-02-03 04:52] LABS: Arterial Blood Gas PEEP 8 cmH2O; Arterial Blood Gas Tidal Volume 350 ml; Arterial Blood Gas Vent Mode CMV; Arterial Blood Gas Ventilator rate 15 /MIN
[2023-02-03 05:13] LABS: Hematocrit 28.3 % (37.0-47.0); Mean Corpuscular HGB Conc 31.8 g/dl (32-36); Mean Corpuscular Hemoglobin 29.8 pg (26-34); Mean Corpuscular Volume 93.7 fl (80-100); Mean Platelet Volume 9.2 fl (7.4-10.4); Platelet Count Result 495 k/mm3 (150-375); Red Blood Count 3.02 M/mm3 (4.2-5.4); Red Cell Distribution Width 16.7 % (11.5-14.5); White Blood Count 12.7 K/mm3 (4.5-10.0)
[2023-02-03] MEDS: MEROPENEM 1 GM/NS 100 ML 1 GM/100 ML BAG IVPB ×3 (05:24→21:00)
[2023-02-03] MEDS: CENTRAL LINE FLUSH 10 ML IV PUSH ×4 (05:24→21:01)
[2023-02-03 05:26] LABS: Alanine Aminotransferase 12 U/L (6-35); Alkaline Phosphatase 73 U/L (38-126); Anion Gap 3 mmol/L (8-16); Aspartate Amino Transferase 21 U/L (14-36); Bilirubin,Total 1.1 mg/dL (0.2-1.3); Blood Urea Nitrogen 40 mg/dL (7-17); Calcium 8.6 mg/dL (8.4-10.2); Carbon Dioxide 38 mmol/L (22-30); Chloride 102 mmol/L (98-107); Estimated CRCL calculation 72 ml/min; Estimated Glomerular Filt Rate > 60; Glucose 137 mg/dL (65-110); Magnesium 2.1 mg/dL (1.6-2.3); Potassium 3.6 mmol/L (3.4-5.0); Sodium 143 mmol/L (137-145)
[2023-02-03 05:30] LABS: Glucose Point of Care 141 mg/dl (65-105)
[2023-02-03] MEDS: dexmedeTOMIDine 400 MCG/100 ML 400 MCG/100 ML BAG 5.63 MCG IV CONT ×2 (06:36→22:31)
[2023-02-03 06:38] LABS: Procalcitonin 0.1 ng/mL
[2023-02-03] MEDS: POTASSIUM CHLORIDE 20 MEQ PACKET (FOR LIQUID) 40 MEQ FEED TUBE ×2 (07:58→13:21)
[2023-02-03] MEDS: INSULIN GLARGINE (*BKC) 100 UNITS/ML 15 UNITS SUB-Q (08:00)
[2023-02-03] MEDS: levETIRAcetam 250 MG TABLET 750 MG PO ×2 (08:00→20:41)
[2023-02-03] MEDS: ACIDOPHILUS/BULGARICUS CHEWABLE TABLET 1 TABLET PO (08:00)
[2023-02-03] MEDS: PANTOPRAZOLE SODIUM IV 40 MG VIAL IV PUSH ×2 (08:00→20:41)
[2023-02-03] MEDS: MINERAL OIL/WHITE PETROLATUM OINTMENT 1 APPLIC EACH EYE ×2 (08:01→20:41)
[2023-02-03] MEDS: ACETAMINOPHEN ELIXIR 325 MG/10.15 ML UDC 650 MG PO (08:02)
--- NOTE | 2023-02-03 08:18 | PM.IMPN ---
Progress Note: A&P Assessment and Plan (1) Acute respiratory failure with hypoxia and hypercapnia: Code(s): J96.01 - Acute respiratory failure with hypoxia; J96.02 - Acute respiratory failure with hypercapnia Status: Acute (2) Septic shock: Code(s): A41.9 - Sepsis, unspecified organism; R65.21 - Severe sepsis with septic shock Status: Acute (3) Pneumonia: Qualifiers: Laterality: left Lung location: lower lobe of lung Pneumonia type: due to unspecified organism Qualified Code(s): J18.9 - Pneumonia, unspecified organism Code(s): J18.9 - Pneumonia, unspecified organism Status: Acute (4) Pleural effusion on left: Code(s): J90 - Pleural effusion, not elsewhere classified Status: Acute Plan 77F w/ PMH emphysema, HTN, PNA, seizures presented unresponsive from [facility]. Intubated on 01/27 05/25 to acute hypoxic hypercapnic respiratory failure None of her parameters have changed, but she failed SBT again yesterday. No further suggested changes other than to attempt again. Her WBC coming down which could be concordant with improvement, although she did receive steroids. vancomycin dc'ed. on meropenem, consider narrowing soon. Pending pleural fluid studies still ctm BS. currently in acceptable range. goal 140-180 critical care managing. fondaparinux for DVT? prophylaxis protonix tube feeds guarded condition no CPR, modified code. Subjective Date/time seen: 02/03/23 08:18 Interval history: NAOE. pt is on the same settings of mechanical ventilation. she continues on low dose precedex as well. Review of Systems Review of Systems: ROS unobtainable: Yes unobtainable due to endotracheal tube Exam Const: Other: RASS -2 Eyes: Pupils: Equal, round and reactive pupils present Resp: Other: mechanical breaths ounds Cardio: Rate: regular rate Rhythm: regular rhythm GI: GI Palp: No Firmness to palpation present (GI) and No Tenderness to palpation present (GI) Extrem: General: no edema Objective Data Vital Signs Vital Signs: Vital Signs - 24 hr 02/02/23 09:00 02/02/23 11:04 02/02/23 10:00 Temperature Pulse Rate 74 98 91 Respiratory Rate 24 H Blood Pressure Pulse Oximetry 97 98 Oxygen Delivery Mechanical Ventilation Mechanical Ventilation Fraction of Inspired Oxygen 30 30 02/02/23 11:00 02/02/23 11:12 02/02/23 11:12 Temperature Pulse Rate 100 101 H 100 Respiratory Rate 27 H 23 H 23 H Blood Pressure Pulse Oximetry Oxygen Delivery Fraction of Inspired Oxygen 02/02/23 10:00 02/02/23 10:00 02/02/23 12:00 Temperature 99.2 F Pulse Rate 91 91 96 Respiratory Rate 24 H Blood Pressure 118/76 Pulse Oximetry 99 Oxygen Delivery Fraction of Inspired Oxygen 02/02/23 12:00 02/02/23 12:00 02/02/23 12:00 Temperature 99.8 F H Pulse Rate 96 96 Respiratory Rate 27 H 27 H Blood Pressure 117/78 Pulse Oximetry 98 96 Oxygen Delivery Mechanical Ventilation Fraction of Inspired Oxygen 30 30 02/02/23 14:00 02/02/23 14:00 02/02/23 14:44 Temperature 99.9 F H Pulse Rate 85 86 72 Respiratory Rate 24 H Blood Pressure 110/76 Pulse Oximetry 99 99 Oxygen Delivery Mechanical Ventilation Fraction of Inspired Oxygen 30 02/02/23 16:00 02/02/23 16:00 02/02/23 16:00 Temperature Pulse Rate 83 83 Respiratory Rate 24 H Blood Pressure Pulse Oximetry 99 Oxygen Delivery Mechanical Ventilation Fraction of Inspired Oxygen 30 30 02/02/23 16:00 02/02/23 16:48 02/02/23 18:00 Temperature 100.3 F H Pulse Rate 83 82 76 Respiratory Rate 24 H Blood Pressure 104/73 Pulse Oximetry 99 99 Oxygen Delivery Mechanical Ventilation Fraction of Inspired Oxygen 30 02/02/23 18:00 02/02/23 13:00 02/02/23 15:00 Temperature 100.1 F H Pulse Rate 76 106 H 69 Respiratory Rate 17 25 H 23 H Blood Pressure 104/70 Pulse Oximetry 98 Oxygen Delivery Fr
--- NOTE | 2023-02-03 08:39 | WPDINTPN ---
Progress Note: A&P Assessment and Plan (1) Acute respiratory failure with hypoxia and hypercapnia: Code(s): J96.01 - Acute respiratory failure with hypoxia; J96.02 - Acute respiratory failure with hypercapnia Status: Acute Assessment and Plan: Acute hypercapnic respiratory failure with pCO2 154 on the ABG on admission -patient was a DNR and comfort measures only was placed on Vapotherm. 01/27: ABGs in the morning showed a pH of 6.79 with unreadable pCO2 and a PO2 of 57, discussed with patient's daughter Starr and updated her with patient's condition, she requested that we do everything and intubated the patient and the daughter rescinded the DNR status. -01/27 patient was successfully intubated and placed on mechanical ventilation, initially she had significant amount of secretions from the ET tube, peak airway pressures were significantly high, patient was paralyzed with rocuronium and then Nimbex infusion was started as patient was dyssynchronous with the ventilator. Peak airway pressures have decreased tremendously. Patient was temporary 4 paralyzed with neuromuscular princess -improving now and currently on CMV mode of ventilation, peep of 8, % FiO2 30% - 02/01 left thoracentesis and 500 mL of fluid was removed. Fluid studies are pending -failed PSV trial for last 3 days. She can only tolerate PSV of 12/8 for an hour. Will try PSV again today. Discussed with daughter regarding possibility of patient needing tracheostomy if she fails to wean. Patient daughter told me the patient has had tracheostomy in the past and she will be agreeable to proceed if patient needs it - Chest x-ray and ABG reviewed -continue bronchodilators -off Mucomyst and Pulmozyme. -completed Solu-Medrol -continue Lasix IV Chest CT IMPRESSION: 1. Airspace opacities in right lower lobe and left lung, consistent with pneumonia. 2. Small right and moderate-sized left pleural effusions. 3. Severe emphysema (2) Septic shock: Code(s): A41.9 - Sepsis, unspecified organism; R65.21 - Severe sepsis with septic shock Status: Acute Assessment and Plan: Patient presented with altered mental status, leukocytosis, pneumonia, UTI, hypothermia -patient received a total of 4 L of IV fluid bolus (3 L in the ER and 1 L in the ICU) -patient was also on maintenance IV fluids at 150 mL/hour and must have received over 1 L fluids overnight. Total IV fluids were greater than 5 L since admission -IV fluids were discontinued patient was something wet, may have some pulmonary edema on chest x-ray along with infiltrates -OFF all pressors, will continue to maintain adequate MAP and SBP for adequate end organ perfusion. -off maintenance IV fluids -01/26: Blood cultures growing Staph hominis, 1 of 2 bottles -01/26: Urine cultures ESBL E coli -01/26: MRSA screen pending -01/27: Sputum cultures are ordered -01/29: Repeat blood cultures growing Staph capitis in 1/2 bottles Currently on Zosyn, Levaquin and vancomycin, will discontinue Zosyn and Levaquin -continue meropenem (01/29). Completed course of azithromycin. Vancomycin discontinued 02/02 - 02/03 -low-grade fever. Will change Tam catheter (3) Pneumonia: Qualifiers: Laterality: left Lung location: lower lobe of lung Pneumonia type: due to unspecified organism Qualified Code(s): J18.9 - Pneumonia, unspecified organism Code(s): J18.9 - Pneumonia, unspecified organism Status: Acute Assessment and Plan: Respiratory failure likely related to pneumonia, possible pulmonary edema -continue antibiotics as above -01/27 patient was given 1 dose of Lasix this morning as she had almost received a total of 4 L and IV fluid bolus and was on maintenance IV fluids at 150 mL/hour so probably has received over a L fluids since last night. -continue Lasix (4) Urinary tract infection: Qualifiers: Hematuria presence: without hematuria Urinary tract infection type: site unspe
[2023-02-03 08:49] LABS: Glucose Point of Care 156 mg/dl (65-105)
[2023-02-03] MEDS: FUROSEMIDE INJ 40 MG/4 ML VIAL IV PUSH (10:53)
[2023-02-03 12:29] LABS: Glucose Point of Care 140 mg/dl (65-105)
[2023-02-03 16:07] LABS: Glucose Point of Care 114 mg/dl (65-105)
--- NOTE | 2023-02-03 19:30 | PC.NURSE ---
Patient's Precedex found running at 0.4mcg/kg/hour. MAR updated to current rate.
[2023-02-03 21:04] LABS: Glucose Point of Care 104 mg/dl (65-105)
[2023-02-04] VITALS (25 sets, daily range): BP systolic 85–170; BP diastolic 62–107; PULSE 70–124; RESP 11–29; TEMP 37–37.7; O2SAT 91–99
[2023-02-04 00:12] LABS: Glucose Point of Care 110 mg/dl (65-105)
[2023-02-04 04:23] LABS: Glucose Point of Care 146 mg/dl (65-105)
[2023-02-04 05:03] LABS: Alveolar/Arterial O2 Gradient 96.5 mmHg; Base Excess ABG 7.9 mEq/l (+/-2.0); Carboxyhemoglobin 0.3 % THb (0-2.0); Fractional Inspired Oxygen 30 %; Methemoglobin ABG 0.3 %THb (0-1.5); Oxygen Content ABG 12.9 %vol (16.0-22.0); Oxygen Saturation ABG 94.7 % (95.0-100.0); Oxyhemoglobin 91.6 % THb (90.0-100.0); PCO2 ABG 42.5 mmHg (35.0-45.0); PO2 ABG 67.5 mmHg (80.0-100.0); PO2 FiO2 Ratio Arterial Blood 2.25 %; Reduced Hemoglobin 7.8 %THb (0-5.0); pH ABG 7.494 (7.350-7.450)
[2023-02-04 05:04] LABS: Device VENTILATOR; Modified Allen's Test Pass; Site Drawn RIGHT BRACHIAL
[2023-02-04 05:05] LABS: Arterial Blood Gas PEEP 8 cmH2O; Arterial Blood Gas Tidal Volume 300 ml; Arterial Blood Gas Vent Mode CMV; Arterial Blood Gas Ventilator rate 15 /MIN
[2023-02-04] MEDS: CENTRAL LINE FLUSH 10 ML IV PUSH ×4 (05:43→21:02)
[2023-02-04] MEDS: MEROPENEM 1 GM/NS 100 ML 1 GM/100 ML BAG IVPB ×3 (05:44→21:02)
[2023-02-04 05:54] LABS: Hematocrit 28.7 % (37.0-47.0); Hemoglobin 8.8 g/dL (12.0-15.0); Mean Corpuscular HGB Conc 30.7 g/dl (32-36); Mean Corpuscular Hemoglobin 29.5 pg (26-34); Mean Corpuscular Volume 96.3 fl (80-100); Platelet Count Result 496 k/mm3 (150-375); Red Blood Count 2.98 M/mm3 (4.2-5.4); Red Cell Distribution Width 17.1 % (11.5-14.5); White Blood Count 8.8 K/mm3 (4.5-10.0)
[2023-02-04 06:07] LABS: Alanine Aminotransferase 12 U/L (6-35); Alkaline Phosphatase 70 U/L (38-126); Anion Gap 4 mmol/L (8-16); Aspartate Amino Transferase 20 U/L (14-36); Blood Urea Nitrogen 38 mg/dL (7-17); Calcium 8.5 mg/dL (8.4-10.2); Carbon Dioxide 36 mmol/L (22-30); Chloride 105 mmol/L (98-107); Estimated CRCL calculation 72 ml/min; Estimated Glomerular Filt Rate > 60; Glucose 153 mg/dL (65-110); Magnesium 2.3 mg/dL (1.6-2.3); Potassium 3.9 mmol/L (3.4-5.0); Sodium 145 mmol/L (137-145)
[2023-02-04] MEDS: polyethylene glycoL 3350 17 GM POWD.PACK FEED TUBE (08:52)
[2023-02-04] MEDS: levETIRAcetam 250 MG TABLET 750 MG PO ×2 (08:52→20:52)
[2023-02-04] MEDS: PANTOPRAZOLE SODIUM IV 40 MG VIAL IV PUSH ×2 (08:53→20:52)
[2023-02-04] MEDS: ACIDOPHILUS/BULGARICUS CHEWABLE TABLET 1 TABLET PO (08:53)
[2023-02-04] MEDS: MINERAL OIL/WHITE PETROLATUM OINTMENT 1 APPLIC EACH EYE ×2 (08:53→20:52)
[2023-02-04 08:57] LABS: Glucose Point of Care 125 mg/dl (65-105)
[2023-02-04] MEDS: INSULIN GLARGINE (*BKC) 100 UNITS/ML 15 UNITS SUB-Q (08:59)
[2023-02-04] MEDS: dexmedeTOMIDine 400 MCG/100 ML 400 MCG/100 ML BAG 5.63 MCG IV CONT (09:24)
--- NOTE | 2023-02-04 11:40 | WPDINTPN ---
Progress Note: A&P Assessment and Plan (1) Acute respiratory failure with hypoxia and hypercapnia: Code(s): J96.01 - Acute respiratory failure with hypoxia; J96.02 - Acute respiratory failure with hypercapnia Status: Acute Assessment and Plan: Acute hypercapnic respiratory failure with pCO2 154 on the ABG on admission -patient was a DNR and comfort measures only was placed on Vapotherm. 01/27: ABGs in the morning showed a pH of 6.79 with unreadable pCO2 and a PO2 of 57, discussed with patient's daughter Starr and updated her with patient's condition, she requested that we do everything and intubated the patient and the daughter rescinded the DNR status. -01/27 patient was successfully intubated and placed on mechanical ventilation, initially she had significant amount of secretions from the ET tube, peak airway pressures were significantly high, patient was paralyzed with rocuronium and then Nimbex infusion was started as patient was dyssynchronous with the ventilator. Peak airway pressures have decreased tremendously. Patient was temporary 4 paralyzed with neuromuscular princess -improving now and currently on CMV mode of ventilation, peep of 8, % FiO2 30% - 02/01 left thoracentesis and 500 mL of fluid was removed. Fluid studies are pending -failed PSV trial for last 3 days. She can only tolerate PSV of 12/8 for an hour. Will try PSV again today. Discussed with daughter regarding possibility of patient needing tracheostomy if she fails to wean. Patient daughter told me the patient has had tracheostomy in the past and she will be agreeable to proceed if patient needs it - Chest x-ray and ABG reviewed -continue bronchodilators -off Mucomyst and Pulmozyme. -completed Solu-Medrol Chest CT IMPRESSION: 1. Airspace opacities in right lower lobe and left lung, consistent with pneumonia. 2. Small right and moderate-sized left pleural effusions. 3. Severe emphysema (2) Septic shock: Code(s): A41.9 - Sepsis, unspecified organism; R65.21 - Severe sepsis with septic shock Status: Acute Assessment and Plan: Patient presented with altered mental status, leukocytosis, pneumonia, UTI, hypothermia -patient received a total of 4 L of IV fluid bolus (3 L in the ER and 1 L in the ICU) -patient was also on maintenance IV fluids at 150 mL/hour and must have received over 1 L fluids overnight. Total IV fluids were greater than 5 L since admission -IV fluids were discontinued patient was volume overloadt, may have some pulmonary edema on chest x-ray along with infiltrates -OFF all pressors, will continue to maintain adequate MAP and SBP for adequate end organ perfusion. -off maintenance IV fluids -diuresis as needed -01/26: Blood cultures growing Staph hominis, 1 of 2 bottles -01/26: Urine cultures ESBL E coli -01/26: MRSA screen pending -01/27: Sputum cultures are ordered -01/29: Repeat blood cultures growing Staph capitis in 1/2 bottles -continue meropenem (01/29). Completed course of azithromycin. Vancomycin discontinued 02/02 - 02/03 -low-grade fever. Tam catheter change -patient currently afebrile (3) Pneumonia: Qualifiers: Laterality: left Lung location: lower lobe of lung Pneumonia type: due to unspecified organism Qualified Code(s): J18.9 - Pneumonia, unspecified organism Code(s): J18.9 - Pneumonia, unspecified organism Status: Acute Assessment and Plan: Respiratory failure likely related to pneumonia, possible pulmonary edema -continue antibiotics as above -01/27 patient was given 1 dose of Lasix this morning as she had almost received a total of 4 L and IV fluid bolus and was on maintenance IV fluids at 150 mL/hour so probably has received over a L fluids since last night. -continue Lasix as needed (4) Urinary tract infection: Qualifiers: Hematuria presence: without hematuria Urinary tract infection type: site unspecified Qualified Code(s): N39.0 - [place]ina
[2023-02-04 13:04] LABS: Glucose Point of Care 125 mg/dl (65-105)
--- NOTE | 2023-02-04 13:12 | PM.IMPN ---
Progress Note: A&P Assessment and Plan (1) Pneumonia: Qualifiers: Laterality: left Lung location: lower lobe of lung Pneumonia type: due to unspecified organism Qualified Code(s): J18.9 - Pneumonia, unspecified organism Code(s): J18.9 - Pneumonia, unspecified organism Status: Acute (2) Pleural effusion on left: Code(s): J90 - Pleural effusion, not elsewhere classified Status: Acute (3) Hyperglycemia: Code(s): R73.9 - Hyperglycemia, unspecified Status: Acute (4) Acute respiratory failure with hypoxia and hypercapnia: Code(s): J96.01 - Acute respiratory failure with hypoxia; J96.02 - Acute respiratory failure with hypercapnia Status: Acute Plan 77F w/ PMH emphysema, HTN, PNA, seizures presented unresponsive from [facility]. Intubated on 01/27 2/2 to acute hypoxic hypercapnic respiratory failure. Pt presented with shortness of breath and was intubated on 01/27. She was in hypercapnic hypoxic respiratory failure 2/2 COPD and pneumonia. She also had a UTI. septic shock. Now off all pressors and only 0.3 of precedex. she remains on meropenem and has been diuresed, also had left thoracentesis w/ pleural fluid studies pending. she failed SBT multiple days in a row. today is day 9 of intubation. tracheostomy discussion has been started by hr representative with daughter. fondaparinux for DVT? prophylaxis protonix tube feeds guarded condition no CPR, modified code. Subjective Date/time seen: 02/04/23 13:12 Interval history: NAOE. pt opens eyes and tracks, she can understand what I verbalize, and denies that she is in pain Review of Systems Review of Systems: All systems reviewed & are unremarkable except as noted in HPI and below Exam Const: General: comfortable HENMT: Other: intubated Resp: Effort & Inspection: normal respiratory effort Other: mech breaths sounds, coarse otherwise diffusely Cardio: Rate: regular rate Rhythm: regular rhythm GI: GI Palp: Yes Soft to palpation and No Tenderness to palpation present (GI) Auscultation: normal bowel sounds Extrem: General: no edema Objective Data Vital Signs Vital Signs: Vital Signs - 24 hr 02/03/23 13:30 02/03/23 14:00 02/03/23 14:00 Temperature 99.4 F Pulse Rate 82 84 84 Respiratory Rate 26 H Blood Pressure 107/75 Pulse Oximetry 95 95 Oxygen Delivery Mechanical Ventilation Fraction of Inspired Oxygen 30 02/03/23 14:05 02/03/23 15:05 02/03/23 16:00 Temperature 99.3 F Pulse Rate 84 84 83 Respiratory Rate 26 H 29 H 27 H Blood Pressure 101/70 Pulse Oximetry 93 Oxygen Delivery Fraction of Inspired Oxygen 02/03/23 16:00 02/03/23 16:00 02/03/23 16:05 Temperature Pulse Rate 84 84 Respiratory Rate 27 H Blood Pressure Pulse Oximetry 93 Oxygen Delivery Mechanical Ventilation Fraction of Inspired Oxygen 30 30 02/03/23 16:38 02/03/23 18:00 02/03/23 18:00 Temperature 99.6 F Pulse Rate 84 85 85 Respiratory Rate 22 H Blood Pressure 96/66 L Pulse Oximetry 93 93 Oxygen Delivery Mechanical Ventilation Fraction of Inspired Oxygen 30 02/03/23 17:00 02/03/23 19:00 02/03/23 19:28 Temperature Pulse Rate 85 76 74 Respiratory Rate 15 22 H 19 Blood Pressure Pulse Oximetry Oxygen Delivery Fraction of Inspired Oxygen 02/03/23 20:10 02/03/23 20:50 02/03/23 20:00 Temperature Pulse Rate 72 72 72 Respiratory Rate 19 Blood Pressure Pulse Oximetry 98 Oxygen Delivery Mechanical Ventilation Fraction of Inspired Oxygen 30 02/03/23 20:00 02/03/23 20:00 02/03/23 20:00 Temperature 99.4 F Pulse Rate 72 Respiratory Rate 20 Blood Pressure 94/67 L Pulse Oximetry 96 96 Oxygen Delivery Mechanical Ventilation Fraction of Inspired Oxygen 30 30 02/03/23 22:00 02/03/23 22:00 02/03/23 22:31 Temperature 99.0 F Pulse Rate 73 73 71 Respiratory Rate 21 H 18 Blood Pressure 96/64
[2023-02-04 18:17] LABS: Glucose Point of Care 115 mg/dl (65-105)
[2023-02-04 21:08] LABS: Glucose Point of Care 131 mg/dl (65-105)
[2023-02-05] VITALS (26 sets, daily range): BP systolic 87–147; BP diastolic 46–85; PULSE 71–123; RESP 18–31; TEMP 36.6–37.9; O2SAT 92–100
[2023-02-05 00:59] LABS: Glucose Point of Care 123 mg/dl (65-105)
[2023-02-05] MEDS: dexmedeTOMIDine 400 MCG/100 ML 400 MCG/100 ML BAG 5.63 MCG IV CONT (01:35)
[2023-02-05 04:45] LABS: Hematocrit 27.2 % (37.0-47.0); Hemoglobin 8.4 g/dL (12.0-15.0); Mean Corpuscular HGB Conc 30.9 g/dl (32-36); Mean Corpuscular Hemoglobin 29.8 pg (26-34); Mean Corpuscular Volume 96.5 fl (80-100); Mean Platelet Volume 9.2 fl (7.4-10.4); Platelet Count Result 482 k/mm3 (150-375); Red Blood Count 2.82 M/mm3 (4.2-5.4); Red Cell Distribution Width 17.2 % (11.5-14.5); White Blood Count 8.6 K/mm3 (4.5-10.0)
[2023-02-05 05:01] LABS: Alanine Aminotransferase 11 U/L (6-35); Alkaline Phosphatase 70 U/L (38-126); Anion Gap 2 mmol/L (8-16); Aspartate Amino Transferase 20 U/L (14-36); Bilirubin,Total 0.9 mg/dL (0.2-1.3); Blood Urea Nitrogen 35 mg/dL (7-17); Calcium 8.1 mg/dL (8.4-10.2); Carbon Dioxide 36 mmol/L (22-30); Chloride 106 mmol/L (98-107); Estimated CRCL calculation 88 ml/min; Estimated Glomerular Filt Rate > 60; Glucose 150 mg/dL (65-110); Magnesium 2.2 mg/dL (1.6-2.3); Potassium 3.6 mmol/L (3.4-5.0); Sodium 144 mmol/L (137-145)
[2023-02-05 05:40] LABS: Alveolar/Arterial O2 Gradient 92.8 mmHg; Arterial Blood Gas Vent Mode CMV; Arterial Blood Gas Ventilator rate 15 /MIN; Base Excess ABG 7.4 mEq/l (+/-2.0); Carboxyhemoglobin 0.3 % THb (0-2.0); Device VENTILATOR; Fractional Inspired Oxygen 30 %; HCO3 ABG 31.5 mEq/l (22.0-26.0); Methemoglobin ABG 0.3 %THb (0-1.5); Modified Allen's Test Unable to perform; Oxygen Saturation ABG 95.2 % (95.0-100.0); PO2 ABG 70.6 mmHg (80.0-100.0); PO2 FiO2 Ratio Arterial Blood 2.35 %; Reduced Hemoglobin 7.4 %THb (0-5.0); Site Drawn LEFT RADIAL; pH ABG 7.483 (7.350-7.450)
[2023-02-05 05:41] LABS: Arterial Blood Gas PEEP 8 cmH2O; Arterial Blood Gas Tidal Volume 300 ml
[2023-02-05] MEDS: MEROPENEM 1 GM/NS 100 ML 1 GM/100 ML BAG IVPB ×3 (05:43→21:07)
[2023-02-05] MEDS: CENTRAL LINE FLUSH 10 ML IV PUSH ×3 (05:44→21:08)
[2023-02-05 07:43] LABS: Glucose Point of Care 117 mg/dl (65-105)
[2023-02-05 08:05] LABS: NT Pro B Type Natriuretic Pept 553 pg/mL (19.9-100)
[2023-02-05] MEDS: POTASSIUM CHLORIDE 20 MEQ PACKET (FOR LIQUID) 40 MEQ FEED TUBE (08:06)
[2023-02-05] MEDS: FONDAPARINUX SODIUM 2.5 MG/0.5 ML SYRINGE SUB-Q (08:07)
[2023-02-05] MEDS: ACIDOPHILUS/BULGARICUS CHEWABLE TABLET 1 TABLET PO (08:07)
[2023-02-05] MEDS: PANTOPRAZOLE SODIUM IV 40 MG VIAL IV PUSH ×2 (08:07→20:48)
[2023-02-05] MEDS: levETIRAcetam 250 MG TABLET 750 MG PO ×2 (08:07→20:48)
--- NOTE | 2023-02-05 08:07 | PM.IMPN ---
Progress Note: A&P Assessment and Plan (1) Hyperglycemia: Code(s): R73.9 - Hyperglycemia, unspecified Status: Acute (2) Electrolyte abnormality: Code(s): E87.8 - Other disorders of electrolyte and fluid balance, not elsewhere classified Status: Acute (3) Anemia: Code(s): D64.9 - Anemia, unspecified Status: Acute (4) Acute respiratory failure with hypoxia and hypercapnia: Code(s): J96.01 - Acute respiratory failure with hypoxia; J96.02 - Acute respiratory failure with hypercapnia Status: Acute (5) Pneumonia: Qualifiers: Laterality: left Lung location: lower lobe of lung Pneumonia type: due to unspecified organism Qualified Code(s): J18.9 - Pneumonia, unspecified organism Code(s): J18.9 - Pneumonia, unspecified organism Status: Acute (6) Pleural effusion on left: Code(s): J90 - Pleural effusion, not elsewhere classified Status: Acute (7) COPD (chronic obstructive pulmonary disease): Qualifiers: COPD type: unspecified COPD Qualified Code(s): J44.9 - Chronic obstructive pulmonary disease, unspecified Code(s): J44.9 - Chronic obstructive pulmonary disease, unspecified Status: Acute (8) Urinary tract infection: Qualifiers: Hematuria presence: without hematuria Urinary tract infection type: site unspecified Qualified Code(s): N39.0 - Urinary tract infection, site not specified Code(s): N39.0 - Urinary tract infection, site not specified Status: Acute (9) DNR (do not resuscitate): Code(s): Z66 - Do not resuscitate Status: Acute (10) Acute hypercapnic respiratory failure: Code(s): J96.02 - Acute respiratory failure with hypercapnia Status: Acute (11) Seizures: Code(s): R56.9 - Unspecified convulsions Status: Acute (12) Essential hypertension: Code(s): I10 - Essential (primary) hypertension Status: Acute (13) GERD (gastroesophageal reflux disease): Code(s): K21.9 - Gastro-esophageal reflux disease without esophagitis Status: Acute Plan 77F w/ PMH emphysema, HTN, PNA, seizures presented [facility] from [facility] Intubated on 01/27 05/25 to acute hypoxic hypercapnic respiratory failure. Pt presented with shortness of breath and was intubated on 01/27. She was in hypercapnic hypoxic respiratory failure 2/2 COPD and pneumonia. She also had a UTI. septic shock. 1. Acute hypercapneic resp failure ct precedex per engineer Now off all pressors and only 0.3 of precedex. she remains on meropenem and has been diuresed, also had left thoracentesis w/ pleural fluid studies pending. she failed SBT multiple days in a row. today is day 9 of intubation. tracheostomy discussion has been started by engineer with daughter. f/u sbt today f/u bnp has BL opacities on recurrent CXR's discussion for possible trach with engineer and family appreciate consultation of engineer 2. Septic shock 2 to PNA vs ut 01/26- urine cx esbl ecoli on meropenem since 01/29 (ct for 2 weeks until 02/12) has been getting spot diuresis for volume overload since admission (see notes from engineer) negative blood cx Completed course of azithromycin.? Vancomycin discontinued 02/02 - 02/03 -low-grade fever.? Tam catheter change -patient currently afebrile 3. COPD/Emphysema on bronchodilators, abx, and CMV 4. HTN anti-hypertensives being held 5. DM on lantus 15 qam and novolog ss fondaparinux for DVT? prophylaxis protonix tube feeds guarded condition no CPR, modified code. Time Spent With Patient Time: 30 min Subjective Date/time seen: 02/05/23 08:07 Interval history: no complaints. precedex was stopped and she became awake. without any distress. sbt pending. bnp ordered. Review of Systems Review of Systems: n/a Exam Narrative: Const:?? General: comfortab le, awake off prec
[2023-02-05] MEDS: INSULIN GLARGINE (*BKC) 100 UNITS/ML 15 UNITS SUB-Q (08:13)
[2023-02-05] MEDS: MINERAL OIL/WHITE PETROLATUM OINTMENT 1 APPLIC EACH EYE ×2 (08:13→20:48)
--- NOTE | 2023-02-05 10:53 | PCFNICU ---
ICU Rounding Note: Pt current nutrition is Vital 1.2@ 60 ml/h. tolerating well. Nutrition recommendation: Continue with current tube feeding orders with no changes. Agree with current orders Last recorded weight is 72 kg. Bowel Motility: +2 BMs recorded today 02/05/23 Labs Reviewed: Hgb 8.4, Hct 27.2, Alb 3.0, BUN 35, Cre 0.4 Meds Noted:Keppra, Miralax. No sedation Skin: WNL Additional Notes: Breathing trial today to see if patient can come off vent. Discussing trach if not able to extubate. Following daily in ICU rounds. Will monitor weight, labs, skin, tube feeding tolerance every Sunday and Sunday..
--- NOTE | 2023-02-05 11:40 | WPDINTPN ---
Progress Note: A&P Assessment and Plan (1) Acute respiratory failure with hypoxia and hypercapnia: Code(s): J96.01 - Acute respiratory failure with hypoxia; J96.02 - Acute respiratory failure with hypercapnia Status: Acute Assessment and Plan: Acute hypercapnic respiratory failure with pCO2 154 on the ABG on admission -patient was a DNR and comfort measures only was placed on Vapotherm. 01/27: ABGs in the morning showed a pH of 6.79 with unreadable pCO2 and a PO2 of 57, discussed with patient's daughter Starr and updated her with patient's condition, she requested that we do everything and intubated the patient and the daughter rescinded the DNR status. -01/27 patient was successfully intubated and placed on mechanical ventilation, initially she had significant amount of secretions from the ET tube, peak airway pressures were significantly high, patient was paralyzed with rocuronium and then Nimbex infusion was started as patient was dyssynchronous with the ventilator. Peak airway pressures have decreased tremendously. Patient was temporary 4 paralyzed with neuromuscular princess -improving now and currently on CMV mode of ventilation, peep of 8, % FiO2 30% - 02/01 left thoracentesis and 500 mL of fluid was removed. Fluid studies are pending -patient has been failing a pressure support trials since 02/01. She can only tolerate PSV of 12/8 for an hour. -02/05: Place patient pressure support ventilation will 10/5 and 8/5. RSBI is was slightly elevated, tolerated for about 2 hours and then got tachycardic, tachypneic with low tidal volumes and increased RSBI. Patient was switched back to CMV mode of ventilation -see chest x-ray this morning: Overall, no change in pulmonary findings from prior exam. Probable COPD and/or chronic interstitial disease with mild patchy haziness. Correlate for superimposed pulmonary edema or infection. - Chest x-ray and ABG reviewed -continue bronchodilators -will diurese today with Lasix Chest CT IMPRESSION: 1. Airspace opacities in right lower lobe and left lung, consistent with pneumonia. 2. Small right and moderate-sized left pleural effusions. 3. Severe emphysema (2) Septic shock: Code(s): A41.9 - Sepsis, unspecified organism; R65.21 - Severe sepsis with septic shock Status: Acute Assessment and Plan: Patient presented with altered mental status, leukocytosis, pneumonia, UTI, hypothermia -patient received a total of 4 L of IV fluid bolus (3 L in the ER and 1 L in the ICU) -patient was also on maintenance IV fluids at 150 mL/hour and must have received over 1 L fluids overnight. Total IV fluids were greater than 5 L since admission -IV fluids were discontinued patient was volume overloadt, may have some pulmonary edema on chest x-ray along with infiltrates -OFF all pressors, will continue to maintain adequate MAP and SBP for adequate end organ perfusion. -off maintenance IV fluids -01/26: Blood cultures growing Staph hominis, 1 of 2 bottles -01/26: Urine cultures ESBL E coli -01/26: MRSA screen pending -01/27: Sputum cultures are ordered -01/29: Repeat blood cultures growing Staph capitis in 1/2 bottles -completed course of meropenem - Completed course of azithromycin. Vancomycin discontinued 02/02 - 02/03 -low-grade fever. Tam catheter change -patient currently afebrile (3) Pneumonia: Qualifiers: Laterality: left Lung location: lower lobe of lung Pneumonia type: due to unspecified organism Qualified Code(s): J18.9 - Pneumonia, unspecified organism Code(s): J18.9 - Pneumonia, unspecified organism Status: Acute Assessment and Plan: Respiratory failure likely related to pneumonia, possible pulmonary edema -continue antibiotics as above -01/27 patient was given 1 dose of Lasix this morning as she had almost received a total of 4 L and IV fluid bolus and was on maintenance IV fluids at 150 mL/hour so probably has received over
[2023-02-05 11:54] LABS: Glucose Point of Care 84 mg/dl (65-105)
[2023-02-05] MEDS: FUROSEMIDE INJ 40 MG/4 ML VIAL IV PUSH (12:16)
[2023-02-05 17:37] LABS: Glucose Point of Care 87 mg/dl (65-105)
[2023-02-05 21:15] LABS: Glucose Point of Care 112 mg/dl (65-105)
[2023-02-06] VITALS (76 sets, daily range): BP systolic 66–146; BP diastolic 54–87; PULSE 68–100; RESP 11–28; TEMP 37.2–38; O2SAT 93–99
[2023-02-06] MEDS: dexmedeTOMIDine 400 MCG/100 ML 400 MCG/100 ML BAG 5.63 MCG IV CONT (00:54)
[2023-02-06 01:05] LABS: Glucose Point of Care 113 mg/dl (65-105)
[2023-02-06 05:13] LABS: Hematocrit 31.7 % (37.0-47.0); Hemoglobin 9.1 g/dL (12.0-15.0); Mean Corpuscular HGB Conc 28.7 g/dl (32-36); Mean Corpuscular Hemoglobin 29.2 pg (26-34); Mean Corpuscular Volume 101.6 fl (80-100); Mean Platelet Volume 9.3 fl (7.4-10.4); Platelet Count Result 487 k/mm3 (150-375); Red Blood Count 3.12 M/mm3 (4.2-5.4); White Blood Count 9.3 K/mm3 (4.5-10.0)
[2023-02-06 05:22] LABS: Potassium 3.9 mmol/L (3.4-5.0)
[2023-02-06 05:24] LABS: Alanine Aminotransferase 10 U/L (6-35); Albumin Level 3.2 g/dL (3.5-5.1); Alkaline Phosphatase 75 U/L (38-126); Anion Gap 5 mmol/L (8-16); Aspartate Amino Transferase 20 U/L (14-36); Bilirubin,Total 0.9 mg/dL (0.2-1.3); Blood Urea Nitrogen 35 mg/dL (7-17); Calcium 8.3 mg/dL (8.4-10.2); Carbon Dioxide 30 mmol/L (22-30); Chloride 107 mmol/L (98-107); Estimated CRCL calculation 88 ml/min; Estimated Glomerular Filt Rate > 60; Glucose 106 mg/dL (65-110); Magnesium 2.4 mg/dL (1.6-2.3); Sodium 142 mmol/L (137-145)
[2023-02-06 05:34] LABS: Alveolar/Arterial O2 Gradient 75.6 mmHg; Base Excess ABG 6.3 mEq/l (+/-2.0); Fractional Inspired Oxygen 30 %; HCO3 ABG 30.4 mEq/l (22.0-26.0); Methemoglobin ABG 0.3 %THb (0-1.5); Oxygen Content ABG 15.2 %vol (16.0-22.0); Oxygen Saturation ABG 97.2 % (95.0-100.0); Oxyhemoglobin 95.6 % THb (90.0-100.0); PCO2 ABG 42.3 mmHg (35.0-45.0); PO2 ABG 88.6 mmHg (80.0-100.0); PO2 FiO2 Ratio Arterial Blood 2.95 %; Reduced Hemoglobin 4.1 %THb (0-5.0); Total Hemoglobin 11.2 g/dL (12.0-18.0); pH ABG 7.475 (7.350-7.450)
[2023-02-06 05:35] LABS: Device VENTILATOR; Modified Allen's Test Pass; Site Drawn RIGHT RADIAL
[2023-02-06 05:36] LABS: Arterial Blood Gas PEEP 8 cmH2O; Arterial Blood Gas Tidal Volume 300 ml; Arterial Blood Gas Vent Mode CMV; Arterial Blood Gas Ventilator rate 15 /MIN
[2023-02-06 07:08] LABS: Glucose Pleural Fluid 160 mg/dL; LDH Pleural Fluid 209 U/L; Total Protein Pleural Fluid 4.6 g/dL
--- NOTE | 2023-02-06 07:58 | PM.IMPN ---
Progress Note: A&P Assessment and Plan (1) Hyperglycemia: Code(s): R73.9 - Hyperglycemia, unspecified Status: Acute (2) Electrolyte abnormality: Code(s): E87.8 - Other disorders of electrolyte and fluid balance, not elsewhere classified Status: Acute (3) Anemia: Code(s): D64.9 - Anemia, unspecified Status: Acute (4) Acute respiratory failure with hypoxia and hypercapnia: Code(s): J96.01 - Acute respiratory failure with hypoxia; J96.02 - Acute respiratory failure with hypercapnia Status: Acute (5) Septic shock: Code(s): A41.9 - Sepsis, unspecified organism; R65.21 - Severe sepsis with septic shock Status: Acute (6) Pneumonia: Qualifiers: Laterality: left Lung location: lower lobe of lung Pneumonia type: due to unspecified organism Qualified Code(s): J18.9 - Pneumonia, unspecified organism Code(s): J18.9 - Pneumonia, unspecified organism Status: Acute (7) Pleural effusion on left: Code(s): J90 - Pleural effusion, not elsewhere classified Status: Acute (8) Urinary tract infection: Qualifiers: Hematuria presence: without hematuria Urinary tract infection type: site unspecified Qualified Code(s): N39.0 - Urinary tract infection, site not specified Code(s): N39.0 - Urinary tract infection, site not specified Status: Acute (9) COPD (chronic obstructive pulmonary disease): Qualifiers: COPD type: unspecified COPD Qualified Code(s): J44.9 - Chronic obstructive pulmonary disease, unspecified Code(s): J44.9 - Chronic obstructive pulmonary disease, unspecified Status: Acute (10) DNR (do not resuscitate): Code(s): Z66 - Do not resuscitate Status: Acute (11) Poor prognosis: Code(s): Z78.9 - Other specified health status Status: Acute (12) Pneumonia: Code(s): J18.9 - Pneumonia, unspecified organism Status: Acute (13) Acute hypercapnic respiratory failure: Code(s): J96.02 - Acute respiratory failure with hypercapnia Status: Acute (14) Seizures: Code(s): R56.9 - Unspecified convulsions Status: Acute (15) Essential hypertension: Code(s): I10 - Essential (primary) hypertension Status: Acute Plan 77F w/ PMH emphysema, HTN, PNA, seizures [facility]. Intubated on 01/27 2/2 to acute hypoxic hypercapnic respiratory failure. Pt presented with shortness of breath and was intubated on 01/27. She was in hypercapnic hypoxic respiratory failure 2/2 COPD and pneumonia. She also had a UTI. septic shock. 1. Acute hypercapneic resp failure ct precedex per icing machine operator Now off all pressors and only 0.3 of precedex. she remains on meropenem and has been diuresed, also had left thoracentesis w/ pleural fluid studies pending. she failed SBT multiple days in a row. today is day 9 of intubation. tracheostomy discussion has been started by icing machine operator with daughter. failed sbt yesterday. see note from icing machine operator f/u bnp (only 553). pt only borderline volume overloaded has BL opacities on recurrent CXR's discussion for possible trach with icing machine operator and family appreciate consultation of icing machine operator 2.? Septic shock 2 to PNA vs ut 01/26- urine cx esbl ecoli on meropenem since 01/29 (ct for 2 weeks until 02/12) has been getting spot diuresis for volume overload since admission (see notes from icing machine operator) negative blood cx Completed course of azithromycin.? Vancomycin discontinued 02/02 - 02/03 -low-grade fever.? Tam catheter change -patient currently afebrile 3. COPD/Emphysema on bronchodilators, abx, and CMV 4. HTN anti-hypertensives being held 5. DM on lantus 15 qam and novolog ss fondaparinux for DVT? prophylaxis protonix tube feeds guarded condition no CPR, modified code. Subjective Date/time seen: 02/06/23 07:58 Interval history: pt barely responsive. sedated. calm. not in
[2023-02-06] MEDS: levETIRAcetam 250 MG TABLET 750 MG PO ×2 (08:27→21:05)
[2023-02-06] MEDS: ACIDOPHILUS/BULGARICUS CHEWABLE TABLET 1 TABLET PO (08:27)
[2023-02-06] MEDS: FONDAPARINUX SODIUM 2.5 MG/0.5 ML SYRINGE SUB-Q (08:28)
[2023-02-06] MEDS: INSULIN GLARGINE (*BKC) 100 UNITS/ML 15 UNITS SUB-Q (08:28)
[2023-02-06] MEDS: MINERAL OIL/WHITE PETROLATUM OINTMENT 1 APPLIC EACH EYE ×2 (08:30→21:05)
[2023-02-06] MEDS: PANTOPRAZOLE SODIUM IV 40 MG VIAL IV PUSH ×2 (08:30→21:05)
[2023-02-06 08:40] LABS: Glucose Point of Care 109 mg/dl (65-105)
--- NOTE | 2023-02-06 09:10 | WPDINTPN ---
Progress Note: A&P Assessment and Plan (1) Acute respiratory failure with hypoxia and hypercapnia: Code(s): J96.01 - Acute respiratory failure with hypoxia; J96.02 - Acute respiratory failure with hypercapnia Status: Acute Assessment and Plan: Acute hypercapnic respiratory failure with pCO2 154 on the ABG on admission -patient was a DNR and comfort measures only was placed on Vapotherm. 01/27: ABGs in the morning showed a pH of 6.79 with unreadable pCO2 and a PO2 of 57, discussed with patient's daughter Starr and updated her with patient's condition, she requested that we do everything and intubated the patient and the daughter rescinded the DNR status. -01/27 patient was successfully intubated and placed on mechanical ventilation, initially she had significant amount of secretions from the ET tube, peak airway pressures were significantly high, patient was paralyzed with rocuronium and then Nimbex infusion was started as patient was dyssynchronous with the ventilator. Peak airway pressures have decreased tremendously. Patient was temporary 4 paralyzed with neuromuscular princess -improving now and currently on CMV mode of ventilation, peep of 8, % FiO2 30% - 02/01 left thoracentesis and 500 mL of fluid was removed. Fluid studies are pending -patient has been failing a pressure support trials since 02/01. She can only tolerate PSV of 12/8 for an hour. -02/05: Place patient pressure support ventilation will 10/5 and 8/5. RSBI is was slightly elevated, tolerated for about 2 hours and then got tachycardic, tachypneic with low tidal volumes and increased RSBI. Patient was switched back to CMV mode of ventilation -see chest x-ray this morning: Overall, no change in pulmonary findings from prior exam. Probable COPD and/or chronic interstitial disease with mild patchy haziness. Correlate for superimposed pulmonary edema or infection. - Chest x-ray and ABG reviewed -continue bronchodilators -patient responded well to diuresis, will repeat today with blood pressures permit. Will place patient on pressure support ventilation again today Chest CT IMPRESSION: 1. Airspace opacities in right lower lobe and left lung, consistent with pneumonia. 2. Small right and moderate-sized left pleural effusions. 3. Severe emphysema (2) Septic shock: Code(s): A41.9 - Sepsis, unspecified organism; R65.21 - Severe sepsis with septic shock Status: Acute Assessment and Plan: Patient presented with altered mental status, leukocytosis, pneumonia, UTI, hypothermia -patient received a total of 4 L of IV fluid bolus (3 L in the ER and 1 L in the ICU) -patient was also on maintenance IV fluids at 150 mL/hour and must have received over 1 L fluids overnight. Total IV fluids were greater than 5 L since admission -IV fluids were discontinued patient was volume overloadt, may have some pulmonary edema on chest x-ray along with infiltrates -OFF all pressors, will continue to maintain adequate MAP and SBP for adequate end organ perfusion. -off maintenance IV fluids -01/26: Blood cultures growing Staph hominis, 1 of 2 bottles -01/26: Urine cultures ESBL E coli -01/26: MRSA screen negative -01/27: Sputum cultures are ordered -01/29: Repeat blood cultures growing Staph capitis in 1/2 bottles -completed course of meropenem (02/05) - Completed course of azithromycin. Vancomycin discontinued 02/02 - 02/03 -low-grade fever. Tam catheter change -patient currently afebrile (3) Pneumonia: Qualifiers: Laterality: left Lung location: lower lobe of lung Pneumonia type: due to unspecified organism Qualified Code(s): J18.9 - Pneumonia, unspecified organism Code(s): J18.9 - Pneumonia, unspecified organism Status: Acute Assessment and Plan: Respiratory failure likely related to pneumonia, possible pulmonary edema -continue antibiotics as above -01/27 patient was given 1 dose of Lasix this morning as she had al
[2023-02-06] MEDS: POTASSIUM CHLORIDE 20 MEQ PACKET (FOR LIQUID) 40 MEQ FEED TUBE (09:57)
[2023-02-06] MEDS: FUROSEMIDE INJ 40 MG/4 ML VIAL 20 MG IV PUSH ×2 (09:58→10:16)
--- NOTE | 2023-02-06 11:08 | PCFNICU ---
ICU Rounding Note: Pt current nutrition is Vital AF 1.2 at 60 ml/hr. Last recorded weight is 69.8 kg, down from 73.8 kg on admit. Bowel Motility:+Bm reported 02/05 Labs Reviewed:BUN 35, Cr 0.4,Alb 3.2 Meds Noted:Keppra, Lantus, Protonix. Skin: WNL Additional Notes: Patient remains on mechanical vent. Breathing trial today-tube feedings are turned off that this time. Goal is extubated if possible. If breathing trial fails recommend to continue tube feedings of Vital AF 1.2 at 60 ml/hr providing 1584 kcals/99 gms protein/1071 ml water. Flush 30 ml q 4 hours. Agree with diet orders. Following daily in ICU rounds. Will monitor weight, labs, skin, tube feeding tolerance every Sunday and Sunday.
[2023-02-06 12:15] LABS: Base Excess ABG 8.2 mEq/l (+/-2.0); Carboxyhemoglobin 0.3 % THb (0-2.0); Fractional Inspired Oxygen 30 %; HCO3 ABG 32.5 mEq/l (22.0-26.0); Methemoglobin ABG 0.3 %THb (0-1.5); Oxygen Saturation ABG 96.6 % (95.0-100.0); Oxyhemoglobin 94.4 % THb (90.0-100.0); PCO2 ABG 44.1 mmHg (35.0-45.0); PO2 ABG 81.1 mmHg (80.0-100.0); Total Hemoglobin 10.5 g/dL (12.0-18.0); pH ABG 7.485 (7.350-7.450)
[2023-02-06 12:16] LABS: Device VENTILATOR; Modified Allen's Test Pass; Site Drawn LEFT RADIAL
[2023-02-06 12:17] LABS: Arterial Blood Gas PEEP 5 cmH2O; Arterial Blood Gas Pressure Support 8 cmH2O; Arterial Blood Gas Vent Mode SPONTANEOUS
[2023-02-06 12:43] LABS: Glucose Point of Care 92 mg/dl (65-105)
[2023-02-06] MEDS: ACETAMINOPHEN ELIXIR 325 MG/10.15 ML UDC 650 MG PO (15:51)
[2023-02-06 17:47] LABS: Glucose Point of Care 131 mg/dl (65-105)
[2023-02-07] VITALS (67 sets, daily range): BP systolic 107–163; BP diastolic 69–97; PULSE 63–107; RESP 10–25; TEMP 37.2–37.6; O2SAT 94–98
[2023-02-07 01:23] LABS: Glucose Point of Care 110 mg/dl (65-105)
[2023-02-07 04:33] LABS: Glucose Point of Care 110 mg/dl (65-105)
[2023-02-07 04:39] LABS: Basophils Percent Auto 0.1 % (0.2-1.2); Eosinophils Absolute Auto 0.2 K/mm3 (0-0.3); Eosinophils Percent Auto 2.2 % (0-4.4); Hematocrit 27.9 % (37.0-47.0); Hemoglobin 8.5 g/dL (12.0-15.0); Immature Granulocyte Absolute 0.08 K/mm3 (0.00-0.031); Lymphocytes Absolute Auto 1.28 K/mm3 (0.9-3.2); Lymphocytes Percent Auto 15.4 % (18.3-44.2); Mean Corpuscular HGB Conc 30.5 g/dl (32-36); Mean Corpuscular Hemoglobin 29.5 pg (26-34); Mean Corpuscular Volume 96.9 fl (80-100); Mean Platelet Volume 9.1 fl (7.4-10.4); Monocytes Absolute Auto 0.7 K/mm3 (0.1-0.6); Monocytes Percent Auto 8.7 % (2.6-8.5); Neutrophils Percent Auto 72.6 % (45.5-73.1); Platelet Count Result 519 k/mm3 (150-375); Red Blood Count 2.88 M/mm3 (4.2-5.4); Red Cell Distribution Width 18.1 % (11.5-14.5); White Blood Count 8.3 K/mm3 (4.5-10.0)
[2023-02-07 04:54] LABS: Alanine Aminotransferase 11 U/L (6-35); Albumin Level 3.3 g/dL (3.5-5.1); Alkaline Phosphatase 76 U/L (38-126); Anion Gap 5 mmol/L (8-16); Aspartate Amino Transferase 24 U/L (14-36); Bilirubin,Total 0.9 mg/dL (0.2-1.3); Blood Urea Nitrogen 37 mg/dL (7-17); Calcium 8.3 mg/dL (8.4-10.2); Carbon Dioxide 30 mmol/L (22-30); Chloride 106 mmol/L (98-107); Estimated CRCL calculation 88 ml/min; Estimated Glomerular Filt Rate > 60; Glucose 110 mg/dL (65-110); Magnesium 2.2 mg/dL (1.6-2.3); Phosphorus 2.4 mg/dL (2.5-4.5); Potassium 3.5 mmol/L (3.4-5.0); Sodium 141 mmol/L (137-145)
[2023-02-07 05:57] LABS: Alveolar/Arterial O2 Gradient 81.3 mmHg; Base Excess ABG 5.4 mEq/l (+/-2.0); Carboxyhemoglobin 0.6 % THb (0-2.0); Fractional Inspired Oxygen 30 %; HCO3 ABG 27.7 mEq/l (22.0-26.0); Methemoglobin ABG 0.2 %THb (0-1.5); Oxygen Content ABG 13.5 %vol (16.0-22.0); PCO2 ABG 32.2 mmHg (35.0-45.0); PO2 ABG 94.8 mmHg (80.0-100.0); PO2 FiO2 Ratio Arterial Blood 3.16 %; Reduced Hemoglobin 3.2 %THb (0-5.0); Total Hemoglobin 9.9 g/dL (12.0-18.0)
[2023-02-07 05:59] LABS: Device VENTILATOR; Modified Allen's Test Pass; Site Drawn LEFT RADIAL; pH ABG 7.553 (7.350-7.450)
[2023-02-07 06:00] LABS: Arterial Blood Gas PEEP 5 cmH2O; Arterial Blood Gas Vent Mode ASV
[2023-02-07] MEDS: levETIRAcetam 250 MG TABLET 750 MG PO ×2 (08:03→20:58)
[2023-02-07] MEDS: FONDAPARINUX SODIUM 2.5 MG/0.5 ML SYRINGE SUB-Q (08:03)
[2023-02-07] MEDS: POTASSIUM CHLORIDE 20 MEQ PACKET (FOR LIQUID) 40 MEQ FEED TUBE (08:03)
[2023-02-07] MEDS: FUROSEMIDE INJ 40 MG/4 ML VIAL IV PUSH (08:03)
[2023-02-07] MEDS: PANTOPRAZOLE SODIUM IV 40 MG VIAL IV PUSH ×2 (08:03→20:58)
[2023-02-07] MEDS: ACIDOPHILUS/BULGARICUS CHEWABLE TABLET 1 TABLET PO (08:03)
[2023-02-07] MEDS: POTASSIUM/PHOSPHORUS/SODIUM 1.5 GM PACKET 1 PACKET PO (08:03)
[2023-02-07] MEDS: MINERAL OIL/WHITE PETROLATUM OINTMENT 1 APPLIC EACH EYE ×2 (08:04→20:59)
[2023-02-07] MEDS: INSULIN GLARGINE (*BKC) 100 UNITS/ML 15 UNITS SUB-Q (08:07)
--- NOTE | 2023-02-07 09:37 | WPDINTPN ---
Progress Note: A&P Assessment and Plan (1) Acute respiratory failure with hypoxia and hypercapnia: Code(s): J96.01 - Acute respiratory failure with hypoxia; J96.02 - Acute respiratory failure with hypercapnia Status: Acute Assessment and Plan: Acute hypercapnic respiratory failure with pCO2 154 on the ABG on admission -patient was a DNR and comfort measures only was placed on Vapotherm. 01/27: ABGs in the morning showed a pH of 6.79 with unreadable pCO2 and a PO2 of 57, discussed with patient's daughter Starr and updated her with patient's condition, she requested that we do everything and intubated the patient and the daughter rescinded the DNR status. -01/27 patient was successfully intubated and placed on mechanical ventilation, initially she had significant amount of secretions from the ET tube, peak airway pressures were significantly high, patient was paralyzed with rocuronium and then Nimbex infusion was started as patient was dyssynchronous with the ventilator. Peak airway pressures have decreased tremendously. Patient was temporary 4 paralyzed with neuromuscular princess -improving now and currently on CMV mode of ventilation, peep of 8, % FiO2 30% - 02/01 left thoracentesis and 500 mL of fluid was removed. Fluid studies are pending -patient has been failing a pressure support trials since 02/01. She can only tolerate PSV of 12/8 for an hour. -02/05: Place patient pressure support ventilation will 01/25 and 11/25. RSBI is was slightly elevated, tolerated for about 2 hours and then got tachycardic, tachypneic with low tidal volumes and increased RSBI. Patient was switched back to CMV mode of ventilation -see chest x-ray this morning: Overall, no change in pulmonary findings from prior exam. Probable COPD and/or chronic interstitial disease with mild patchy haziness. Correlate for superimposed pulmonary edema or infection. 02/06: Patient did well on pressure support 11/25 but then her RSBI was elevated, patient was tachycardic, tachypneic with low tidal volume so placed her back on ASV. - Chest x-ray and ABG reviewed -continue bronchodilators -patient responded well to diuresis, will repeat Lasix today t. Will place patient on pressure support ventilation again today Chest CT IMPRESSION: 1. Airspace opacities in right lower lobe and left lung, consistent with pneumonia. 2. Small right and moderate-sized left pleural effusions. 3. Severe emphysema (2) Septic shock: Code(s): A41.9 - Sepsis, unspecified organism; R65.21 - Severe sepsis with septic shock Status: Acute Assessment and Plan: Patient presented with altered mental status, leukocytosis, pneumonia, UTI, hypothermia -patient received a total of 4 L of IV fluid bolus (3 L in the ER and 1 L in the ICU) -patient was also on maintenance IV fluids at 150 mL/hour and must have received over 1 L fluids overnight. Total IV fluids were greater than 5 L since admission -IV fluids were discontinued patient was volume overloadt, may have some pulmonary edema on chest x-ray along with infiltrates -OFF all pressors, will continue to maintain adequate MAP and SBP for adequate end organ perfusion. -off maintenance IV fluids -01/26: Blood cultures growing Staph hominis, 1 of 2 bottles -01/26: Urine cultures ESBL E coli -01/26: MRSA screen negative -01/27: Sputum cultures are ordered -01/29: Repeat blood cultures growing Staph capitis in 1/2 bottles -completed course of meropenem (02/05) - Completed course of azithromycin. Vancomycin discontinued 02/02 - 02/03 -low-grade fever. Tam catheter change -patient currently afebrile (3) Pneumonia: Qualifiers: Laterality: left Lung location: lower lobe of lung Pneumonia type: due to unspecified organism Qualified Code(s): J18.9 - Pneumonia, unspecified organism Code(s): J18.9 - Pneumonia, unspecified organism Status: Acute Assessment and Plan: Respiratory failure likely
[2023-02-07 11:23] LABS: Alveolar/Arterial O2 Gradient 73.5 mmHg; Base Excess ABG 6.4 mEq/l (+/-2.0); Fractional Inspired Oxygen 30 %; HCO3 ABG 30.7 mEq/l (22.0-26.0); Oxygen Content ABG 14.5 %vol (16.0-22.0); Oxygen Saturation ABG 97.3 % (95.0-100.0); Oxyhemoglobin 95.3 % THb (90.0-100.0); PCO2 ABG 42.6 mmHg (35.0-45.0); PO2 ABG 90.3 mmHg (80.0-100.0); PO2 FiO2 Ratio Arterial Blood 3.01 %; Total Hemoglobin 10.7 g/dL (12.0-18.0); pH ABG 7.475 (7.350-7.450)
[2023-02-07 11:25] LABS: Arterial Blood Gas PEEP 5 cmH2O; Arterial Blood Gas Vent Mode SPONTANEOUS; Device VENTILATOR; Modified Allen's Test Pass; Site Drawn LEFT RADIAL
[2023-02-07 11:26] LABS: Arterial Blood Gas Pressure Support 8 cmH2O
--- NOTE | 2023-02-07 11:50 | PCFNICU ---
ICU Rounding Note: Pt current nutrition is NPO. Last recorded weight is 70 kg, down from 73.8 kg on ad Bowel Motility:+Bm reported 02/07 Labs Reviewed:Cr 0.4,BUN 37, Hct 27.9,Hgb 8.5 Meds Noted:Keppra, Lantus, Protonix. Skin: WNL Additional Notes: Patient has been extubated. Tube feedings off. NPO at this time. Following daily in ICU rounds and continue to monitor, weight, labs, skin, nutrition.
[2023-02-07 12:01] LABS: Glucose Point of Care 87 mg/dl (65-105)
[2023-02-07 17:58] LABS: Glucose Point of Care 73 mg/dl (65-105)
[2023-02-07 21:21] LABS: Glucose Point of Care 79 mg/dl (65-105)
[2023-02-07 21:21] LABS: Glucose Point of Care 66 mg/dl (65-105)
[2023-02-08] VITALS (33 sets, daily range): BP systolic 135–183; BP diastolic 74–108; PULSE 37–120; RESP 21–33; TEMP 37.1–38.1; O2SAT 93–99
[2023-02-08 04:47] LABS: Glucose Point of Care 89 mg/dl (65-105)
[2023-02-08 04:53] LABS: Basophils Percent Auto 0.1 % (0.2-1.2); Eosinophils Absolute Auto 0.1 K/mm3 (0-0.3); Eosinophils Percent Auto 1.2 % (0-4.4); Hemoglobin 9.9 g/dL (12.0-15.0); Immature Granulocyte Absolute 0.05 K/mm3 (0.00-0.031); Immature Granulocyte Percent A 0.6 % (0-0.5); Lymphocytes Absolute Auto 0.92 K/mm3 (0.9-3.2); Lymphocytes Percent Auto 11.1 % (18.3-44.2); Mean Corpuscular Hemoglobin 29.7 pg (26-34); Mean Corpuscular Volume 99.1 fl (80-100); Mean Platelet Volume 9.8 fl (7.4-10.4); Monocytes Absolute Auto 0.7 K/mm3 (0.1-0.6); Monocytes Percent Auto 8.7 % (2.6-8.5); Neutrophils Absolute Auto 6.5 K/mm3 (1.3-6.7); Neutrophils Percent Auto 78.3 % (45.5-73.1); Platelet Count Result 543 k/mm3 (150-375); Red Blood Count 3.33 M/mm3 (4.2-5.4); Red Cell Distribution Width 18.3 % (11.5-14.5); White Blood Count 8.3 K/mm3 (4.5-10.0)
[2023-02-08 06:55] LABS: Alanine Aminotransferase 12 U/L (6-35); Albumin Level 3.8 g/dL (3.5-5.1); Alkaline Phosphatase 91 U/L (38-126); Anion Gap 4 mmol/L (8-16); Aspartate Amino Transferase 28 U/L (14-36); Bilirubin,Total 1.1 mg/dL (0.2-1.3); Blood Urea Nitrogen 29 mg/dL (7-17); Calcium 8.7 mg/dL (8.4-10.2); Carbon Dioxide 32 mmol/L (22-30); Chloride 105 mmol/L (98-107); Estimated CRCL calculation 112 ml/min; Estimated Glomerular Filt Rate > 60; Glucose 113 mg/dL (65-110); Phosphorus 2.9 mg/dL (2.5-4.5); Sodium 141 mmol/L (137-145)
[2023-02-08] MEDS: FONDAPARINUX SODIUM 2.5 MG/0.5 ML SYRINGE SUB-Q (09:15)
[2023-02-08] MEDS: ACIDOPHILUS/BULGARICUS CHEWABLE TABLET 1 TABLET PO (09:15)
[2023-02-08] MEDS: PANTOPRAZOLE SODIUM IV 40 MG VIAL IV PUSH ×2 (09:16→19:54)
[2023-02-08] MEDS: INSULIN GLARGINE (*BKC) 100 UNITS/ML 15 UNITS SUB-Q (09:16)
[2023-02-08] MEDS: levETIRAcetam 250 MG TABLET 750 MG PO ×2 (09:16→19:55)
--- NOTE | 2023-02-08 11:32 | PCFNICU ---
ICU Rounding Note: Pt current nutrition is Vital AF 1.2 at 60 ml/hr. Last recorded weight is 70.5 kg, down from 73.8 kg on admit. Bowel Motility:+BM reported 02/08 Labs Reviewed:Glu 113, Cr 0.3,BUN 29, Hct 33.0,Hgb 9.9 Meds Noted:Keppra,Lantus, Protonix. Skin: WNL Additional Notes: Patient has been extubated. PEG in place for total nutrition. Discussed restarting tube feeding from [place]. New orders for Jevity 1.5 at 55 ml/hr with 150 ml q 6 hour flush. Tube feedings providing 1815 kcals/77 gms protein/920 ml water. Meeting 100% kcal needs at 25 kcal/kg and 100% protein needs at 1.0-1.2 kcal/kg. Agree with diet orders. Following daily in ICU rounds. Will monitor weight, labs, skin, tube feeding tolerance every Sunday and Sunday.
[2023-02-08 11:33] LABS: Glucose Point of Care 116 mg/dl (65-105)
--- NOTE | 2023-02-08 12:49 | WPDINTPN ---
Progress Note: A&P Assessment and Plan (1) Acute respiratory failure with hypoxia and hypercapnia: Code(s): J96.01 - Acute respiratory failure with hypoxia; J96.02 - Acute respiratory failure with hypercapnia Status: Acute Assessment and Plan: Acute hypercapnic respiratory failure with pCO2 154 on the ABG on admission -patient was a DNR and comfort measures only was placed on Vapotherm. 01/27: ABGs in the morning showed a pH of 6.79 with unreadable pCO2 and a PO2 of 57, discussed with patient's daughter Starr and updated her with patient's condition, she requested that we do everything and intubated the patient and the daughter rescinded the DNR status. -01/27 patient was successfully intubated and placed on mechanical ventilation, initially she had significant amount of secretions from the ET tube, peak airway pressures were significantly high, patient was paralyzed with rocuronium and then Nimbex infusion was started as patient was dyssynchronous with the ventilator. Peak airway pressures have decreased tremendously. Patient was temporary 4 paralyzed with neuromuscular princess -02/07/2023: Extubated -continue bronchodilators Chest CT IMPRESSION: 1. Airspace opacities in right lower lobe and left lung, consistent with pneumonia. 2. Small right and moderate-sized left pleural effusions. 3. Severe emphysema (2) Septic shock: Code(s): A41.9 - Sepsis, unspecified organism; R65.21 - Severe sepsis with septic shock Status: Acute Assessment and Plan: RESOLVED Patient presented with altered mental status, leukocytosis, pneumonia, UTI, hypothermia -patient received a total of 4 L of IV fluid bolus (3 L in the ER and 1 L in the ICU) -patient was also on maintenance IV fluids at 150 mL/hour and must have received over 1 L fluids overnight. Total IV fluids were greater than 5 L since admission -IV fluids were discontinued patient was volume overloadt, may have some pulmonary edema on chest x-ray along with infiltrates -OFF all pressors, will continue to maintain adequate MAP and SBP for adequate end organ perfusion. -off maintenance IV fluids -01/26: Blood cultures growing Staph hominis, 1 of 2 bottles -01/26: Urine cultures ESBL E coli -01/26: MRSA screen negative -01/27: Sputum cultures are ordered -01/29: Repeat blood cultures growing Staph capitis in 1/2 bottles -completed course of meropenem (02/05) - Completed course of azithromycin. Vancomycin discontinued 02/02 - 02/03 -low-grade fever. Tam catheter change -patient currently afebrile (3) Pneumonia: Qualifiers: Laterality: left Lung location: lower lobe of lung Pneumonia type: due to unspecified organism Qualified Code(s): J18.9 - Pneumonia, unspecified organism Code(s): J18.9 - Pneumonia, unspecified organism Status: Acute Assessment and Plan: Resolved Respiratory failure likely related to pneumonia, possible pulmonary edema -continue antibiotics as above -01/27 patient was given 1 dose of Lasix this morning as she had almost received a total of 4 L and IV fluid bolus and was on maintenance IV fluids at 150 mL/hour so probably has received over a L fluids since last night. -Lasix as needed (4) Urinary tract infection: Qualifiers: Hematuria presence: without hematuria Urinary tract infection type: site unspecified Qualified Code(s): N39.0 - Urinary tract infection, site not specified Code(s): N39.0 - Urinary tract infection, site not specified Status: Acute Assessment and Plan: RESOLVED UA was reflective of UTI -urine cultures growing ESBL E coli, completed a course of meropenem (5) COPD (chronic obstructive pulmonary disease): Qualifiers: COPD type: unspecified COPD Qualified Code(s): J44.9 - Chronic obstructive pulmonary disease, unspecified Code(s): J44.9 - Chronic obstructive pulmonary disease, unspecified Status: Acute Asses
[2023-02-08] MEDS: METOPROLOL TARTRATE 50 MG TAB PO ×2 (15:47→19:54)
[2023-02-08 18:19] LABS: Glucose Point of Care 87 mg/dl (65-105)
[2023-02-08] MEDS: hydrALAZINE HCL 20 MG/ML VIAL IV PUSH (20:03)
[2023-02-08] MEDS: ACETAMINOPHEN ELIXIR 325 MG/10.15 ML UDC 650 MG PO (20:03)
[2023-02-09] VITALS (10 sets, daily range): BP systolic 139–150; BP diastolic 77–92; PULSE 66–110; RESP 16–18; TEMP 35.7–36.7; O2SAT 88–100
[2023-02-09 00:04] LABS: Glucose Point of Care 158 mg/dl (65-105)
[2023-02-09 05:51] LABS: Glucose Point of Care 147 mg/dl (65-105)
[2023-02-09 05:54] LABS: Basophils Percent Auto 0.2 % (0.2-1.2); Eosinophils Percent Auto 0.5 % (0-4.4); Hematocrit 34.4 % (37.0-47.0); Hemoglobin 10.3 g/dL (12.0-15.0); Immature Granulocyte Absolute 0.03 K/mm3 (0.00-0.031); Immature Granulocyte Percent A 0.4 % (0-0.5); Lymphocytes Absolute Auto 0.99 K/mm3 (0.9-3.2); Lymphocytes Percent Auto 12.2 % (18.3-44.2); Mean Corpuscular HGB Conc 29.9 g/dl (32-36); Mean Corpuscular Hemoglobin 29.5 pg (26-34); Mean Corpuscular Volume 98.6 fl (80-100); Mean Platelet Volume 8.9 fl (7.4-10.4); Monocytes Absolute Auto 0.7 K/mm3 (0.1-0.6); Monocytes Percent Auto 8.3 % (2.6-8.5); Neutrophils Absolute Auto 6.3 K/mm3 (1.3-6.7); Neutrophils Percent Auto 78.4 % (45.5-73.1); Platelet Count Result 559 k/mm3 (150-375); Red Blood Count 3.49 M/mm3 (4.2-5.4); Red Cell Distribution Width 18.2 % (11.5-14.5); White Blood Count 8.1 K/mm3 (4.5-10.0)
[2023-02-09 06:05] LABS: Alanine Aminotransferase 12 U/L (6-35); Albumin Level 3.8 g/dL (3.5-5.1); Alkaline Phosphatase 97 U/L (38-126); Anion Gap 7 mmol/L (8-16); Aspartate Amino Transferase 26 U/L (14-36); Blood Urea Nitrogen 30 mg/dL (7-17); Carbon Dioxide 31 mmol/L (22-30); Chloride 103 mmol/L (98-107); Estimated CRCL calculation 88 ml/min; Estimated Glomerular Filt Rate > 60; Glucose 138 mg/dL (65-110); Magnesium 2.1 mg/dL (1.6-2.3); Phosphorus 3.1 mg/dL (2.5-4.5); Potassium 3.7 mmol/L (3.4-5.0); Sodium 141 mmol/L (137-145)
[2023-02-09 06:44] LABS: Hypochromasia 1+ (NORMAL); Platelet Estimate Increased (Adequate)
[2023-02-09 06:45] LABS: Anisocytosis 1+ (NORMAL); Schistocytes None Seen (NORMAL)
[2023-02-09] MEDS: PANTOPRAZOLE SODIUM IV 40 MG VIAL IV PUSH ×2 (08:45→21:02)
[2023-02-09] MEDS: METOPROLOL TARTRATE 50 MG TAB PO ×2 (08:45→21:02)
[2023-02-09] MEDS: levETIRAcetam 250 MG TABLET 750 MG PO ×2 (08:45→21:02)
[2023-02-09] MEDS: ACIDOPHILUS/BULGARICUS CHEWABLE TABLET 1 TABLET PO (08:49)
[2023-02-09] MEDS: FONDAPARINUX SODIUM 2.5 MG/0.5 ML SYRINGE SUB-Q (08:49)
--- NOTE | 2023-02-09 09:44 | PC.NURSE ---
Metal Neutralizer updated patient's daughter Starr via telephone on patient's current status.
--- NOTE | 2023-02-09 11:17 | PCNFU ---
Nutrition Follow-Up Complete: Inadequate Energy Intake as related to mechanical ventilation as evidenced by suboptimal tube feeding rate. Goal: Meet estimated nutritional needs Patient is meeting current goal. No new goal. Pt current nutrition is Jevity 1.5 at 55 ml/hr. Last recorded weight is 66.4 kg, down from 73.8 kg on admit. Bowel Motility: +BM reported 02/09 Labs Reviewed:Glu 138, Cr 0.4,BUN 30 Meds Noted:Keppra, Protonix. Skin:WNL Additional Notes: Patient has PEG. Tolerating tube feedings of Jevity 1.5 at 55 ml/hr per nursing. Flush 150 ml q 6 hours. Tube feedings providing 1815 kcals/77 gms protein/920 ml water. Agree with diet orders. Will monitor weight, labs, skin, tube feeding tolerance every Sunday and Sunday.
--- NOTE | 2023-02-09 11:49 | PM.IMPN ---
Progress Note: A&P Assessment and Plan (1) Acute respiratory failure with hypoxia and hypercapnia: Code(s): J96.01 - Acute respiratory failure with hypoxia; J96.02 - Acute respiratory failure with hypercapnia Status: Acute Assessment and Plan: Improved. Oxygen as needed. (2) Septic shock: Code(s): A41.9 - Sepsis, unspecified organism; R65.21 - Severe sepsis with septic shock Status: Acute Assessment and Plan: Doing much better. (3) Pneumonia: Qualifiers: Laterality: left Lung location: lower lobe of lung Pneumonia type: due to unspecified organism Qualified Code(s): J18.9 - Pneumonia, unspecified organism Code(s): J18.9 - Pneumonia, unspecified organism Status: Acute Assessment and Plan: Status post course of antibiotics. (4) Urinary tract infection: Qualifiers: Hematuria presence: without hematuria Urinary tract infection type: site unspecified Qualified Code(s): N39.0 - Urinary tract infection, site not specified Code(s): N39.0 - Urinary tract infection, site not specified Status: Acute Assessment and Plan: Completed a course of meropenem (5) COPD (chronic obstructive pulmonary disease): Qualifiers: COPD type: unspecified COPD Qualified Code(s): J44.9 - Chronic obstructive pulmonary disease, unspecified Code(s): J44.9 - Chronic obstructive pulmonary disease, unspecified Status: Acute Assessment and Plan: Respiratory status is at baseline. On home oxygen (6) Seizures: Code(s): R56.9 - Unspecified convulsions Status: Acute Assessment and Plan: -continue home Keppra (7) Essential hypertension: Code(s): I10 - Essential (primary) hypertension Status: Acute Assessment and Plan: Monitor (8) GERD (gastroesophageal reflux disease): Code(s): K21.9 - Gastro-esophageal reflux disease without esophagitis Status: Acute Assessment and Plan: Continue Protonix (9) Anemia: Code(s): D64.9 - Anemia, unspecified Status: Acute Assessment and Plan: Monitor (10) Electrolyte abnormality: Code(s): E87.8 - Other disorders of electrolyte and fluid balance, not elsewhere classified Status: Acute Assessment and Plan: Monitor (11) Hyperglycemia: Code(s): R73.9 - Hyperglycemia, unspecified Status: Acute Assessment and Plan: Continue moderate sliding scale insulin with Accu-Cheks Continue lantus Off steroids Subjective Date/time seen: 02/09/23 11:49 Interval history: Patient is sitting up in bed and answering questions appropriately. She denies any new complaints. Exam Narrative: General: Patient is awake, sitting up in bed, in no acute distress HEENT:? Pupils are equal and reactive, sclera is clear, Neck:? Supple Respiratory:? Coarse breath sounds bilaterally have improved,, no wheezing, adequate air entry air entry, Cardiac:? S1-S2 was normal, regular rate and rhythm Abdomen:? Soft, nontender, nondistended, normoactive bowel sounds, PEG tube in place Extremities:? trace edema, palpable pedal pulses Neuro:? Patient on 1 L nasal cannula, is awake, alert, follows simple commands in all extremities and answers to questions. Skin:? Dry skin on lower extremities, chronic venous stasis changes Psych:? Normal mentation and affect Objective Data Vital Signs Vital Signs: Vital Signs - 24 hr 02/08/23 12:00 02/08/23 12:00 02/08/23 12:00 Temperature 100.3 F H Pulse Rate 99 99 103 H Respiratory Rate 27 H 28 H Blood Pressure 136/84 Pulse Oximetry 96 95 Oxygen Delivery Nasal Cannula Oxygen Flow Rate 1 Fraction of Inspired Oxygen 28 02/08/23 14:00 02/08/23 14:00 02/08/23 15:47 Temperature Pulse Rate 37 L 98 100 Respiratory Rate 28 H Blood Pressure 141/75 H Pulse Oximetry 99 Oxygen Delivery Oxygen Flow Rate Fraction of Inspired O
[2023-02-09 12:18] LABS: Glucose Point of Care 139 mg/dl (65-105)
--- NOTE | 2023-02-09 12:30 | PC.NURSE ---
Lofter spoke with Starr patient's daughter via telephone and answered her questions regarding the patient.
--- NOTE | 2023-02-09 16:25 | PCOTNOTE ---
Addendum entered by Ashley Jones, OT 02/09/23 16:29: Spoke with Hospitalist, Dr. nSider, who agreed to cancelation of orders. Original Note: Spoke with pt. and family. Per daughter, pt is bedbound and dependent at baseline, with full assistance at senior care where she resides. Family declined need for acute OT services at this time. Nursing aware. Attempted to call hospitalist, was not able to leave message.
--- NOTE | 2023-02-09 16:48 | PCPTNOTE ---
Per OT note, pt is dependent at baseline. Hospitalist KACIE DC of therapy orders at this time.
--- NOTE | 2023-02-09 17:50 | PC.NURSE ---
Starr daughter called asking for an update on patient. Citizen Participation Specialist gave update to daughter via telephone.
[2023-02-09 18:18] LABS: Glucose Point of Care 151 mg/dl (65-105)
[2023-02-09] MEDS: ACETAMINOPHEN ELIXIR 325 MG/10.15 ML UDC 650 MG PO (21:05)
[2023-02-09 23:38] LABS: Glucose Point of Care 122 mg/dl (65-105)
[2023-02-10 06:00] VITALS: BP 152/84; PULSE 92; RESP 18; TEMP 36.5; O2SAT 98
[2023-02-10 06:09] LABS: Glucose Point of Care 128 mg/dl (65-105)
[2023-02-10 06:19] LABS: Basophils Percent Auto 0.5 % (0.2-1.2); Eosinophils Absolute Auto 0.1 K/mm3 (0-0.3); Hematocrit 33.4 % (37.0-47.0); Hemoglobin 10.1 g/dL (12.0-15.0); Immature Granulocyte Absolute 0.01 K/mm3 (0.00-0.031); Immature Granulocyte Percent A 0.2 % (0-0.5); Lymphocytes Absolute Auto 1.16 K/mm3 (0.9-3.2); Lymphocytes Percent Auto 20.6 % (18.3-44.2); Mean Corpuscular HGB Conc 30.2 g/dl (32-36); Mean Corpuscular Hemoglobin 29.8 pg (26-34); Mean Corpuscular Volume 98.5 fl (80-100); Mean Platelet Volume 8.8 fl (7.4-10.4); Monocytes Absolute Auto 0.6 K/mm3 (0.1-0.6); Monocytes Percent Auto 10.9 % (2.6-8.5); Neutrophils Absolute Auto 3.7 K/mm3 (1.3-6.7); Neutrophils Percent Auto 65.8 % (45.5-73.1); Platelet Count Result 519 k/mm3 (150-375); Red Blood Count 3.39 M/mm3 (4.2-5.4); Red Cell Distribution Width 17.9 % (11.5-14.5); White Blood Count 5.6 K/mm3 (4.5-10.0)
[2023-02-10 06:31] LABS: Alanine Aminotransferase 12 U/L (6-35); Albumin Level 3.7 g/dL (3.5-5.1); Alkaline Phosphatase 94 U/L (38-126); Anion Gap 5 mmol/L (8-16); Aspartate Amino Transferase 23 U/L (14-36); Bilirubin,Total 0.8 mg/dL (0.2-1.3); Blood Urea Nitrogen 27 mg/dL (7-17); Calcium 9.1 mg/dL (8.4-10.2); Carbon Dioxide 33 mmol/L (22-30); Chloride 103 mmol/L (98-107); Estimated CRCL calculation 88 ml/min; Estimated Glomerular Filt Rate > 60; Glucose 130 mg/dL (65-110); Magnesium 2.1 mg/dL (1.6-2.3); Phosphorus 3.1 mg/dL (2.5-4.5); Potassium 3.7 mmol/L (3.4-5.0); Sodium 141 mmol/L (137-145)
[2023-02-10 09:58] VITALS: BP 147/90; PULSE 102; O2SAT 97
[2023-02-10] MEDS: FONDAPARINUX SODIUM 2.5 MG/0.5 ML SYRINGE SUB-Q (09:58)
[2023-02-10] MEDS: levETIRAcetam 250 MG TABLET 750 MG PO ×2 (09:58→20:25)
[2023-02-10] MEDS: ACIDOPHILUS/BULGARICUS CHEWABLE TABLET 1 TABLET PO (09:58)
[2023-02-10] MEDS: METOPROLOL TARTRATE 50 MG TAB PO ×2 (09:58→20:24)
[2023-02-10] MEDS: PANTOPRAZOLE SODIUM IV 40 MG VIAL IV PUSH ×2 (10:03→20:24)
--- NOTE | 2023-02-10 11:00 | PC.NURSE ---
Patient Placement Coordinator called Starr back via telephone and gave her an update on patient.
[2023-02-10 12:40] LABS: Glucose Point of Care 133 mg/dl (65-105)
--- NOTE | 2023-02-10 13:16 | PM.DS ---
DS: Admitting Diagnosis Discharge Date February 10, 2023 Admitting Diagnosis UTI, pneumonia DS: Discharge Diagnosis Discharge Diagnosis (1) Acute respiratory failure with hypoxia and hypercapnia: Code(s): J96.01 - Acute respiratory failure with hypoxia; J96.02 - Acute respiratory failure with hypercapnia Status: Acute Assessment and Plan: Improved. Oxygen as needed. (2) Septic shock: Code(s): A41.9 - Sepsis, unspecified organism; R65.21 - Severe sepsis with septic shock Status: Acute Assessment and Plan: Doing much better. (3) Pneumonia: Qualifiers: Laterality: left Lung location: lower lobe of lung Pneumonia type: due to unspecified organism Qualified Code(s): J18.9 - Pneumonia, unspecified organism Code(s): J18.9 - Pneumonia, unspecified organism Status: Acute Assessment and Plan: Status post course of antibiotics. (4) Urinary tract infection: Qualifiers: Hematuria presence: without hematuria Urinary tract infection type: site unspecified Qualified Code(s): N39.0 - Urinary tract infection, site not specified Code(s): N39.0 - Urinary tract infection, site not specified Status: Acute Assessment and Plan: Completed a course of meropenem (5) COPD (chronic obstructive pulmonary disease): Qualifiers: COPD type: unspecified COPD Qualified Code(s): J44.9 - Chronic obstructive pulmonary disease, unspecified Code(s): J44.9 - Chronic obstructive pulmonary disease, unspecified Status: Acute Assessment and Plan: Respiratory status is at baseline. On home oxygen (6) Seizures: Code(s): R56.9 - Unspecified convulsions Status: Acute Assessment and Plan: -continue home Keppra (7) Essential hypertension: Code(s): I10 - Essential (primary) hypertension Status: Acute Assessment and Plan: Monitor (8) GERD (gastroesophageal reflux disease): Code(s): K21.9 - Gastro-esophageal reflux disease without esophagitis Status: Acute Assessment and Plan: Continue Protonix (9) Anemia: Code(s): D64.9 - Anemia, unspecified Status: Acute Assessment and Plan: Monitor (10) Electrolyte abnormality: Code(s): E87.8 - Other disorders of electrolyte and fluid balance, not elsewhere classified Status: Acute Assessment and Plan: Monitor (11) Hyperglycemia: Code(s): R73.9 - Hyperglycemia, unspecified Status: Acute Assessment and Plan: Continue moderate sliding scale insulin with Accu-Cheks Continue lantus Off steroids DS: Summary Hospital Course Hospital Course: Patient is a 77-year-old female who came in with respiratory failure pneumonia and UTI. She was admitted the ICU for ongoing sepsis management. Patient did have to be intubated and has been extubated several days ago. She is doing well on nasal cannula oxygen. She has tube feeds. Patient has completed antibiotics. She is alert oriented answering questions appropriately. Otherwise she is going to be discharged to a facility. Time Spent with Patient Time attestation: Total time spent providing and/or coordinating discharge services: Exam Narrative: General: Patient is awake, sitting up in bed, in no acute distress HEENT:? Pupils are equal and reactive, sclera is clear, Neck:? Supple Respiratory:? Coarse breath sounds bilaterally have improved,, no wheezing, adequate air entry air entry, Cardiac:? S1-S2 was normal, regular rate and rhythm Abdomen:? Soft, nontender, nondistended, normoactive bowel sounds, PEG tube in place Extremities:? trace edema, palpable pedal pulses Neuro:? Patient on 1 L nasal cannula, is awake, alert, follows simple commands in all extremities and answers to questions. Skin:? Dry skin on lower extremities, chronic venous stasis changes Psych:? Normal mentation and affect DS: Data Data Completed
--- NOTE | 2023-02-10 14:00 | PC.NURSE ---
Daughter, Starr called & questioned whether the Color Laboratory Technician had notified nurse & charge nurse were aware that she (Starr) had appealed the discharge today. I told her that we are all aware.
--- NOTE | 2023-02-10 17:20 | PC.NURSE ---
Patient refused oral care
[2023-02-10 18:26] LABS: Glucose Point of Care 138 mg/dl (65-105)
[2023-02-10 19:29] VITALS: BP 154/93; PULSE 106; RESP 18; TEMP 36.4; O2SAT 98
[2023-02-10 20:24] VITALS: PULSE 106
[2023-02-10] MEDS: ACETAMINOPHEN ELIXIR 325 MG/10.15 ML UDC 650 MG PO (20:25)
[2023-02-11] VITALS (7 sets, daily range): BP systolic 130–167; BP diastolic 81–94; PULSE 80–107; RESP 16–48; TEMP 36.2–36.6; O2SAT 92–99
[2023-02-11 00:05] LABS: Glucose Point of Care 147 mg/dl (65-105)
[2023-02-11 05:48] LABS: Basophils Percent Auto 0.6 % (0.2-1.2); Eosinophils Absolute Auto 0.1 K/mm3 (0-0.3); Eosinophils Percent Auto 1.7 % (0-4.4); Hematocrit 35.5 % (37.0-47.0); Hemoglobin 10.4 g/dL (12.0-15.0); Immature Granulocyte Absolute 0.01 K/mm3 (0.00-0.031); Immature Granulocyte Percent A 0.2 % (0-0.5); Lymphocytes Absolute Auto 1.01 K/mm3 (0.9-3.2); Lymphocytes Percent Auto 19.2 % (18.3-44.2); Mean Corpuscular HGB Conc 29.3 g/dl (32-36); Mean Corpuscular Hemoglobin 29.3 pg (26-34); Monocytes Absolute Auto 0.5 K/mm3 (0.1-0.6); Monocytes Percent Auto 9.3 % (2.6-8.5); Neutrophils Absolute Auto 3.6 K/mm3 (1.3-6.7); Platelet Count Result 484 k/mm3 (150-375); Red Blood Count 3.55 M/mm3 (4.2-5.4); Red Cell Distribution Width 17.6 % (11.5-14.5); White Blood Count 5.3 K/mm3 (4.5-10.0)
[2023-02-11 05:55] LABS: Glucose Point of Care 130 mg/dl (65-105)
[2023-02-11 06:07] LABS: Alanine Aminotransferase 12 U/L (6-35); Albumin Level 3.8 g/dL (3.5-5.1); Alkaline Phosphatase 99 U/L (38-126); Anion Gap 5 mmol/L (8-16); Aspartate Amino Transferase 26 U/L (14-36); Bilirubin,Total 0.8 mg/dL (0.2-1.3); Blood Urea Nitrogen 25 mg/dL (7-17); Calcium 8.9 mg/dL (8.4-10.2); Carbon Dioxide 34 mmol/L (22-30); Chloride 104 mmol/L (98-107); Estimated CRCL calculation 88 ml/min; Estimated Glomerular Filt Rate > 60; Glucose 144 mg/dL (65-110); Magnesium 2.1 mg/dL (1.6-2.3); Phosphorus 3.2 mg/dL (2.5-4.5); Sodium 143 mmol/L (137-145)
[2023-02-11 06:18] LABS: Anisocytosis 1+ (NORMAL); Hypochromasia 1+ (NORMAL); Platelet Estimate Increased (Adequate)
[2023-02-11 06:19] LABS: Schistocytes None Seen (NORMAL)
[2023-02-11] MEDS: PANTOPRAZOLE SODIUM IV 40 MG VIAL IV PUSH ×2 (09:57→20:01)
[2023-02-11] MEDS: levETIRAcetam 250 MG TABLET 750 MG PO ×2 (09:57→20:01)
[2023-02-11] MEDS: METOPROLOL TARTRATE 50 MG TAB PO (09:57)
[2023-02-11] MEDS: FONDAPARINUX SODIUM 2.5 MG/0.5 ML SYRINGE SUB-Q (09:57)
[2023-02-11] MEDS: ACIDOPHILUS/BULGARICUS CHEWABLE TABLET 1 TABLET PO (09:57)
[2023-02-11 11:00] LABS: Anion Gap 6 mmol/L (8-16); Blood Urea Nitrogen 26 mg/dL (7-17); Carbon Dioxide 31 mmol/L (22-30); Chloride 105 mmol/L (98-107); Estimated CRCL calculation 88 ml/min; Estimated Glomerular Filt Rate > 60; Glucose 187 mg/dL (65-110); Potassium 4.1 mmol/L (3.4-5.0); Sodium 142 mmol/L (137-145)
--- NOTE | 2023-02-11 11:33 | PM.IMPN ---
Progress Note: A&P Assessment and Plan (1) Acute respiratory failure with hypoxia and hypercapnia: Code(s): J96.01 - Acute respiratory failure with hypoxia; J96.02 - Acute respiratory failure with hypercapnia Status: Acute Assessment and Plan: Improved overall, tachypneic today. Chest x-ray reviewed 1 dose of Lasix given Hold up discharged (2) Septic shock: Code(s): A41.9 - Sepsis, unspecified organism; R65.21 - Severe sepsis with septic shock Status: Acute Assessment and Plan: Doing much better. (3) Pneumonia: Qualifiers: Laterality: left Lung location: lower lobe of lung Pneumonia type: due to unspecified organism Qualified Code(s): J18.9 - Pneumonia, unspecified organism Code(s): J18.9 - Pneumonia, unspecified organism Status: Acute Assessment and Plan: Status post course of antibiotics. (4) Urinary tract infection: Qualifiers: Hematuria presence: without hematuria Urinary tract infection type: site unspecified Qualified Code(s): N39.0 - Urinary tract infection, site not specified Code(s): N39.0 - Urinary tract infection, site not specified Status: Acute Assessment and Plan: Completed a course of meropenem (5) COPD (chronic obstructive pulmonary disease): Qualifiers: COPD type: unspecified COPD Qualified Code(s): J44.9 - Chronic obstructive pulmonary disease, unspecified Code(s): J44.9 - Chronic obstructive pulmonary disease, unspecified Status: Acute Assessment and Plan: Respiratory status is at baseline. On home oxygen (6) Seizures: Code(s): R56.9 - Unspecified convulsions Status: Acute Assessment and Plan: -continue home Keppra (7) Essential hypertension: Code(s): I10 - Essential (primary) hypertension Status: Acute Assessment and Plan: Monitor (8) GERD (gastroesophageal reflux disease): Code(s): K21.9 - Gastro-esophageal reflux disease without esophagitis Status: Acute Assessment and Plan: Continue Protonix (9) Anemia: Code(s): D64.9 - Anemia, unspecified Status: Acute Assessment and Plan: Monitor (10) Electrolyte abnormality: Code(s): E87.8 - Other disorders of electrolyte and fluid balance, not elsewhere classified Status: Acute Assessment and Plan: Monitor (11) Hyperglycemia: Code(s): R73.9 - Hyperglycemia, unspecified Status: Acute Assessment and Plan: Continue moderate sliding scale insulin with Accu-Cheks Continue lantus Off steroids Subjective Date/time seen: 02/11/23 11:33 Interval history: No new complaints Exam Narrative: General: Patient is awake, sitting up in bed, in no acute distress HEENT:? Pupils are equal and reactive, sclera is clear, Neck:? Supple Respiratory:? Coarse breath sounds bilaterally have improved,, no wheezing, adequate air entry air entry, Cardiac:? S1-S2 was normal, regular rate and rhythm Abdomen:? Soft, nontender, nondistended, normoactive bowel sounds, PEG tube in place Extremities:? trace edema, palpable pedal pulses Neuro:? Patient on 1 L nasal cannula, is awake, alert, follows simple commands in all extremities and answers to questions. Skin:? Dry skin on lower extremities, chronic venous stasis changes Psych:? Normal mentation and affect Objective Data Vital Signs Vital Signs: Vital Signs - 24 hr 02/10/23 19:29 02/10/23 20:24 02/11/23 05:13 Temperature 97.5 F L 97.5 F L Pulse Rate 106 H 106 H 91 Respiratory Rate 18 16 Blood Pressure 154/93 H 147/81 H Pulse Oximetry 98 98 Oxygen Delivery Oxygen Flow Rate 02/11/23 07:35 02/11/23 09:57 02/11/23 09:57 Temperature Pulse Rate 107 H Respiratory Rate Blood Pressure Pulse Oximetry 92 97 Oxygen Delivery Nasal Cannula Nasal Cannula Oxygen Flow Rate 0.5 1 Intake/Output Intake/Output: Intake & Out
[2023-02-11 12:05] LABS: NT Pro B Type Natriuretic Pept 834 pg/mL (19.9-100)
[2023-02-11] MEDS: FUROSEMIDE INJ 40 MG/4 ML VIAL 20 MG IV PUSH (13:16)
[2023-02-11] MEDS: ALBUTEROL SULFATE NEB 2.5 MG/3 ML INH INHALATION (16:29)
[2023-02-11 18:40] LABS: Glucose Point of Care 122 mg/dl (65-105)
[2023-02-11] MEDS: METOPROLOL TARTRATE 25 MG TABLET 75 MG PO (20:02)
[2023-02-12] VITALS (21 sets, daily range): BP systolic 63–150; BP diastolic 44–94; PULSE 75–129; RESP 20–60; TEMP 35.8–38; O2SAT 92–100
[2023-02-12 05:47] LABS: Basophils Absolute Auto 0.1 K/mm3 (0.0-0.1); Eosinophils Absolute Auto 0.1 K/mm3 (0-0.3); Eosinophils Percent Auto 2.6 % (0-4.4); Hematocrit 36.2 % (37.0-47.0); Hemoglobin 10.7 g/dL (12.0-15.0); Immature Granulocyte Absolute 0.01 K/mm3 (0.00-0.031); Immature Granulocyte Percent A 0.2 % (0-0.5); Lymphocytes Percent Auto 24.2 % (18.3-44.2); Mean Corpuscular HGB Conc 29.6 g/dl (32-36); Mean Corpuscular Hemoglobin 29.6 pg (26-34); Mean Platelet Volume 9.1 fl (7.4-10.4); Monocytes Absolute Auto 0.5 K/mm3 (0.1-0.6); Monocytes Percent Auto 9.7 % (2.6-8.5); Neutrophils Absolute Auto 3.1 K/mm3 (1.3-6.7); Neutrophils Percent Auto 62.3 % (45.5-73.1); Platelet Count Result 464 k/mm3 (150-375); Red Blood Count 3.62 M/mm3 (4.2-5.4); Red Cell Distribution Width 17.5 % (11.5-14.5)
[2023-02-12 06:00] LABS: Anion Gap 5 mmol/L (8-16); Blood Urea Nitrogen 29 mg/dL (7-17); Calcium 9.3 mg/dL (8.4-10.2); Carbon Dioxide 36 mmol/L (22-30); Chloride 102 mmol/L (98-107); Estimated CRCL calculation 88 ml/min; Estimated Glomerular Filt Rate > 60; Glucose 180 mg/dL (65-110); Potassium 3.9 mmol/L (3.4-5.0); Sodium 143 mmol/L (137-145)
[2023-02-12 06:16] LABS: Glucose Point of Care 172 mg/dl (65-105)
[2023-02-12 07:32] LABS: Glucose Point of Care 121 mg/dl (65-105)
[2023-02-12 08:46] LABS: Glucose Point of Care 195 mg/dl (65-105)
[2023-02-12] MEDS: FONDAPARINUX SODIUM 2.5 MG/0.5 ML SYRINGE SUB-Q (09:53)
[2023-02-12] MEDS: levETIRAcetam 250 MG TABLET 750 MG PO ×2 (09:53→20:42)
[2023-02-12] MEDS: ACIDOPHILUS/BULGARICUS CHEWABLE TABLET 1 TABLET PO (09:53)
[2023-02-12] MEDS: FUROSEMIDE INJ 40 MG/4 ML VIAL 20 MG IV PUSH (09:54)
[2023-02-12] MEDS: METOPROLOL TARTRATE 25 MG TABLET 75 MG PO ×2 (09:54→20:42)
[2023-02-12] MEDS: PANTOPRAZOLE SODIUM IV 40 MG VIAL IV PUSH ×2 (09:54→20:42)
--- NOTE | 2023-02-12 10:00 | PC.NURSE ---
Literacy Coordinator spoke with daughter Starr at bedside about patient status today. Patient is smiling, oriented to self and birthday, appears to be diaphoretic on face and neck, but afebrile. Extra blankets removed. Bed bed was given this AM so hair is damp from that still. Literacy Coordinator asked patient is she was in any pain or anxious and patient responded that she is not in any pain or anxious. Daughter is requesting anxiety medications be ordered and given to patient. Hospitalist Tylor came to room and spoke with patient and daughter Starr and medication, labs, EKG, ect were ordered (see MAR and ORDERS).
--- NOTE | 2023-02-12 11:06 | ECG_ITS ---
Measurements Intervals [place] Rate: 96 P: 68 AR: 195 QRS: 12 QRSD: 70 T: 35 QT: 358 QTc: 453 Interpretive Statements SINUS RHYTHM WITH OCCASIONAL ECTOPIC PREMATURE COMPLEXES NONSPECIFIC T-WAVE ABNORMALITY ABNORMAL ECG COMPARED TO ECG 01/26/2023 17:49:59 PVCS ARE DEMONSTRATED Electronically Signed On 02-12-2023 14:57:40 CDT by Angel Parra M.D.
--- NOTE | 2023-02-12 11:07 | PM.IMPN ---
Progress Note: A&P Assessment and Plan (1) Acute respiratory failure with hypoxia and hypercapnia: Code(s): J96.01 - Acute respiratory failure with hypoxia; J96.02 - Acute respiratory failure with hypercapnia Status: Acute Assessment and Plan: Improved overall, tachypneic today. Chest x-ray reviewed 1 dose of Lasix given Hold up discharged (2) Septic shock: Code(s): A41.9 - Sepsis, unspecified organism; R65.21 - Severe sepsis with septic shock Status: Acute Assessment and Plan: Doing much better. (3) Pneumonia: Qualifiers: Laterality: left Lung location: lower lobe of lung Pneumonia type: due to unspecified organism Qualified Code(s): J18.9 - Pneumonia, unspecified organism Code(s): J18.9 - Pneumonia, unspecified organism Status: Acute Assessment and Plan: Status post course of antibiotics. (4) Urinary tract infection: Qualifiers: Hematuria presence: without hematuria Urinary tract infection type: site unspecified Qualified Code(s): N39.0 - Urinary tract infection, site not specified Code(s): N39.0 - Urinary tract infection, site not specified Status: Acute Assessment and Plan: Completed a course of meropenem (5) COPD (chronic obstructive pulmonary disease): Qualifiers: COPD type: unspecified COPD Qualified Code(s): J44.9 - Chronic obstructive pulmonary disease, unspecified Code(s): J44.9 - Chronic obstructive pulmonary disease, unspecified Status: Acute Assessment and Plan: Respiratory status is at baseline. On home oxygen (6) Seizures: Code(s): R56.9 - Unspecified convulsions Status: Acute Assessment and Plan: -continue home Keppra (7) Essential hypertension: Code(s): I10 - Essential (primary) hypertension Status: Acute Assessment and Plan: Monitor (8) GERD (gastroesophageal reflux disease): Code(s): K21.9 - Gastro-esophageal reflux disease without esophagitis Status: Acute Assessment and Plan: Continue Protonix (9) Anemia: Code(s): D64.9 - Anemia, unspecified Status: Acute Assessment and Plan: Monitor (10) Electrolyte abnormality: Code(s): E87.8 - Other disorders of electrolyte and fluid balance, not elsewhere classified Status: Acute Assessment and Plan: Monitor (11) Hyperglycemia: Code(s): R73.9 - Hyperglycemia, unspecified Status: Acute Assessment and Plan: Continue moderate sliding scale insulin with Accu-Cheks Continue lantus Off steroids (12) Chest pain: Code(s): R07.9 - Chest pain, unspecified Status: Acute Assessment and Plan: new since i saw her this morning ekg, serial trop Subjective Date/time seen: 02/12/23 11:07 Interval history: no complaints when i saw her this morning cm just notified me patient had cp when in room Exam Narrative: General: Patient is awake, sitting up in bed, in no acute distress HEENT:? Pupils are equal and reactive, sclera is clear, Neck:? Supple Respiratory:? Coarse breath sounds bilaterally have improved,, no wheezing, adequate air entry air entry, Cardiac:? S1-S2 was normal, regular rate and rhythm Abdomen:? Soft, nontender, nondistended, normoactive bowel sounds, PEG tube in place Extremities:? trace edema, palpable pedal pulses Neuro:? Patient on 1 L nasal cannula, is awake, alert, follows simple commands in all extremities and answers to questions. Skin:? Dry skin on lower extremities, chronic venous stasis changes Psych:? Normal mentation and affect Objective Data Vital Signs Vital Signs: Vital Signs - 24 hr 02/11/23 16:29 02/11/23 14:00 02/11/23 21:52 Temperature 97.9 F 97.1 F L Pulse Rate 80 94 102 H Respiratory Rate 16 26 H 20 Blood Pressure 167/90 H 130/86 Pulse Oximetry 97 99 Oxygen Delivery Oxygen Flow Rate 02/12/23 06:00 02/12/23
[2023-02-12 11:47] LABS: Troponin I < 0.012 ng/mL (0.000-0.034)
[2023-02-12 11:52] LABS: Glucose Point of Care 154 mg/dl (65-105)
--- NOTE | 2023-02-12 12:07 | PCNFU ---
Nutrition Follow-Up Complete: Inadequate Energy Intake as related to mechanical ventilation as evidenced by suboptimal tube feeding rate. Pt no longer intubated. Goal: Meet estimated needs\ Pt is meeting goal, continue with same goal. Pt current nutrition is Jevity 1.5 @ 55ml/hr. Nutrition recommendation: continue with current plan of care. Last recorded weight is 66.2 kg. Bowel Motility: +BM 02/11 Labs Reviewed: Hgb:10.7, HCT:36.2, BUN:29, Cr:0.4, GLU:195 Meds Noted: miralax Skin: no skin issues noted Additional Notes: Pt with a PEG, Tolerating tube feedings of Jevity 1.5 at 55 ml/hr per nursing. Flush 150 ml q 6 hours. Tube feedings providing 1815 kcals/77 gms protein/920 ml water. Agree with diet orders. Will monitor weight, labs, skin, tube feeding tolerance every Sunday and Sunday.
[2023-02-12 13:00] LABS: NT Pro B Type Natriuretic Pept 602 pg/mL (19.9-100)
--- NOTE | 2023-02-12 13:45 | PC.NURSE ---
Addendum entered by Lucho Escobar RN 02/12/23 14:30: Daughter Starr is patient's POA. Original Note: Patient is stating she is not anxious or nervous. Daughter Starr is requesting that we give the PRN ativan now.
[2023-02-12] MEDS: LORazepam (*CRX) 0.5 MG TABLET PO (13:47)
--- NOTE | 2023-02-12 14:42 | PC.NURSE ---
Daughter Starr called via telephone to check on patient and see how the ativan was working. Advanced Manufacturing Engineer updated Starr on the patient's status.
[2023-02-12 15:19] LABS: Troponin I < 0.012 ng/mL (0.000-0.034)
--- NOTE | 2023-02-12 17:00 | PC.NURSE ---
Network Lead called respiratory therapist Jaimie for PRN breathing treatment.
[2023-02-12] MEDS: ALBUTEROL SULFATE NEB 2.5 MG/3 ML INH INHALATION (17:22)
[2023-02-12] MEDS: IPRATROPIUM BR 0.02% INH SOLN 0.5 MG/2.5 ML VIAL INHALATION (17:22)
[2023-02-12 18:09] LABS: Glucose Point of Care 212 mg/dl (65-105)
[2023-02-12] MEDS: INSULIN ASPART (*BKC) 100 UNITS/ML SUB-Q (18:13)
--- NOTE | 2023-02-12 18:16 | PC.NURSE ---
Daughter Starr called wanting an update on patient. Rotary Swaging Machine Operator gave update to Starr in regards to patient's status via telephone.
[2023-02-12] MEDS: ACETAMINOPHEN ELIXIR 325 MG/10.15 ML UDC 650 MG PO (19:29)
[2023-02-12 19:47] LABS: Hematocrit 36.7 % (37.0-47.0); Hemoglobin 11.2 g/dL (12.0-15.0); Mean Corpuscular HGB Conc 30.5 g/dl (32-36); Mean Corpuscular Hemoglobin 29.9 pg (26-34); Mean Corpuscular Volume 98.1 fl (80-100); Mean Platelet Volume 8.9 fl (7.4-10.4); Platelet Count Result 464 k/mm3 (150-375); Red Blood Count 3.74 M/mm3 (4.2-5.4); Red Cell Distribution Width 17.2 % (11.5-14.5); White Blood Count 16.6 K/mm3 (4.5-10.0)
[2023-02-12 19:51] LABS: Alveolar/Arterial O2 Gradient 78.3 mmHg; Base Excess ABG 5.3 mEq/l (+/-2.0); Fractional Inspired Oxygen 28 %; HCO3 ABG 30.6 mEq/l (22.0-26.0); Oxygen Content ABG 15.5 %vol (16.0-22.0); Oxygen Saturation ABG 92.8 % (95.0-100.0); Oxyhemoglobin 90.3 % THb (90.0-100.0); PCO2 ABG 48.1 mmHg (35.0-45.0); PO2 ABG 64.6 mmHg (80.0-100.0); PO2 FiO2 Ratio Arterial Blood 2.31 %; Total Hemoglobin 12.2 g/dL (12.0-18.0); pH ABG 7.422 (7.350-7.450)
[2023-02-12 19:52] LABS: Device NASAL CANNULA; Modified Allen's Test Pass; Site Drawn LEFT RADIAL
--- NOTE | 2023-02-12 19:58 | P.PNCROSS_ITS ---
Event Note Event Note Event Note: I was asked to come see patient near change of shift for nursing staff due to l ow-grade fever, tachycardia and significant tachypnea. Initially upon arrival patient would answer couple of questions denied having any difficulty breathing or any pain. Shortly thereafter patient stopped responding to questions but was still awake. ABG and chest x-ray ordered. Repeat labs ordered. Ordered BiPAP due to tachypnea with labored respirations. Approximately 1 hour later lab resu lts were available and white blood cell count had elevated from 5 to 16.6, lactic acid was positive at 2.4. I was in the process of ordering IV antibiotics when rapid response was called overhead for this patient's room because her blood pressure had decreased to 70s-80s systolic. Patient is a modified code no CPR only, family has repeatedly expressed that they would want intubation and possibly tracheostomy again for this patient. Patient was severely tachypneic respiratory rate near 60 pulling low 200s tidal volume on BiPAP. Decision was made to move patient to the ICU for intubation and central line. Patient was given 4 mg Versed and 60 mg rocuronium for rapid sequence intubation. Patient was intubated by myself supervised by Dr. Hernadez using glide scope with a 7.5 ET tube 23 cm at the upper gum. ET tube secured. Patient had a drop in blood pressure and Levophed was ordered. Dr. Hernadez initiated central venous access. Zosyn and vancomycin ordered. Nursing staff updated patient's daughter. ICU attending made aware of patient return to the ICU.
[2023-02-12 19:59] LABS: Lactic Acid Reflex 2.4 mmol/L (0.7-2.0)
[2023-02-12 20:01] LABS: Alanine Aminotransferase 16 U/L (6-35); Albumin Level 4.2 g/dL (3.5-5.1); Alkaline Phosphatase 105 U/L (38-126); Anion Gap 6 mmol/L (8-16); Aspartate Amino Transferase 29 U/L (14-36); Bilirubin,Total 1.1 mg/dL (0.2-1.3); Blood Urea Nitrogen 29 mg/dL (7-17); Calcium 9.3 mg/dL (8.4-10.2); Carbon Dioxide 34 mmol/L (22-30); Chloride 101 mmol/L (98-107); Estimated CRCL calculation 88 ml/min; Estimated Glomerular Filt Rate > 60; Glucose 201 mg/dL (65-110); Phosphorus 2.5 mg/dL (2.5-4.5); Potassium 3.7 mmol/L (3.4-5.0); Sodium 141 mmol/L (137-145)
[2023-02-12 20:11] LABS: Troponin I 0.017 ng/mL (0.000-0.034)
[2023-02-12 20:21] LABS: Band Neutrophils Percent 4 % (0-6); Lymphocytes Absolute Manual 0.83 K/mm3 (1.1-4.5); Monocytes Absolute Manual 0.16 K/mm3 (0.1-0.90); Monocytes Percent Manual 1 % (3-9); Neutrophils Percent Manual 90 % (46-73); Total Cells Counted 100
[2023-02-12 20:22] LABS: Hypochromasia 1+ (NORMAL); Platelet Estimate Increased (Adequate); Schistocytes None Seen (NORMAL)
[2023-02-12 20:23] LABS: Anisocytosis 2+ (NORMAL)
[2023-02-12] MEDS: SODIUM CHLORIDE 0.9% IV 500 ML IV CONT (20:42)
[2023-02-12 21:26] LABS: Glucose Point of Care 200 mg/dl (65-105)
[2023-02-12] MEDS: SODIUM CHLORIDE 0.9% IV 1,000 ML 999 ML IV CONT ×2 (21:35→22:28)
--- NOTE | 2023-02-12 21:45 | PC.NURSE ---
Rapid Response team called for room 346, when RN and ICU machine adjuster leader case trim got to room. patient on bipap with Dr Parry and Ralph OTERO and stated patient needs to be transfered to ICU to be intubated due to respiratory decline. Patient transferred to ICU 2, RN called patient's daughter, Starr and updated her and received consent for intubation and central line placement. Patient intubated in room, by Ralph with Dr Parry and RT present. Dr Parry then placed central line. Patient's daughter Starr called back at 2300 for update, RN updated patient more stable, now on ventilator but in need of pressor support for blood pressure. Daughter's questions answered.
[2023-02-12] MEDS: NOREPINEPHRINE 8 MG/D5W 250 ML 8 MG/250 ML BAG 9.38 MG IV CONT (22:10)
[2023-02-12] MEDS: RAPID SEQUENCE INTUBATION KIT 1 EACH (22:28)
[2023-02-12 22:45] LABS: Reflex Lactic Acid Yes or No Add Lactic
[2023-02-12 23:03] LABS: Hematocrit 29.2 % (37.0-47.0); Hemoglobin 8.7 g/dL (12.0-15.0); Mean Corpuscular HGB Conc 29.8 g/dl (32-36); Mean Corpuscular Hemoglobin 29.5 pg (26-34); Platelet Count Result 381 k/mm3 (150-375); Red Blood Count 2.95 M/mm3 (4.2-5.4); Red Cell Distribution Width 17.2 % (11.5-14.5); White Blood Count 18.3 K/mm3 (4.5-10.0)
[2023-02-12 23:13] LABS: Lactic Acid Reflex 1.4 mmol/L (0.7-2.0)
[2023-02-12 23:14] LABS: Anion Gap 6 mmol/L (8-16); Blood Urea Nitrogen 28 mg/dL (7-17); Calcium 7.8 mg/dL (8.4-10.2); Carbon Dioxide 29 mmol/L (22-30); Chloride 107 mmol/L (98-107); Estimated CRCL calculation 88 ml/min; Estimated Glomerular Filt Rate > 60; Glucose 153 mg/dL (65-110); Magnesium 1.8 mg/dL (1.6-2.3); Phosphorus 2.5 mg/dL (2.5-4.5); Potassium 3.3 mmol/L (3.4-5.0); Sodium 142 mmol/L (137-145)
[2023-02-12 23:21] LABS: Alveolar/Arterial O2 Gradient 171.3 mmHg; Base Excess ABG 4.8 mEq/l (+/-2.0); Carboxyhemoglobin 0.3 % THb (0-2.0); Fractional Inspired Oxygen 50 %; HCO3 ABG 28.1 mEq/l (22.0-26.0); Methemoglobin ABG 0.4 %THb (0-1.5); Oxygen Content ABG 14.4 %vol (16.0-22.0); Oxyhemoglobin 97.5 % THb (90.0-100.0); PCO2 ABG 36.9 mmHg (35.0-45.0); PO2 ABG 143.7 mmHg (80.0-100.0); PO2 FiO2 Ratio Arterial Blood 2.87 %; Reduced Hemoglobin 1.8 %THb (0-5.0); Total Hemoglobin 10.3 g/dL (12.0-18.0)
[2023-02-12 23:22] LABS: Modified Allen's Test Pass; Site Drawn LEFT RADIAL
[2023-02-12 23:23] LABS: Arterial Blood Gas PEEP 5 cmH2O; Arterial Blood Gas Tidal Volume 400 ml; Arterial Blood Gas Vent Mode CMV; Arterial Blood Gas Ventilator rate 20 /MIN; Device VENTILATOR
[2023-02-12 23:44] LABS: Glucose Point of Care 147 mg/dl (65-105)
[2023-02-13] VITALS (39 sets, daily range): BP systolic 103–142; BP diastolic 57–92; PULSE 57–111; RESP 17–34; TEMP 37.2–37.9; O2SAT 98–100
--- NOTE | 2023-02-13 00:01 | WPDPROCEDUR ---
Procedures Intubation Intubation Date: 02/12/23 Intubation Time: 21:30 Consent: Implied, later nursing staff notified daughter A pre-procedural Time-Out was completed immediately before starting the procedure and confirmed: Patient Identification, Site, Procedure, Patient Position and the Availability of Requisite Equipment: Yes Sedative: versed Mg given: 4 Paralytic: rocuronium Mg given: 60 Laryngoscope: fiber optic video scope (Glidescope Size 3) ET tube size: 7.5 Tube secured depth (cm): 23 Tube secured location: teeth Tube placement confirmation: visualized tube passing through cords, equal breath sounds bilaterally, no breath sounds over epigastrium and confirmation by capnometry Patient tolerated procedure: well Intubation complications: hypotension Additional comments: Intubated by Olegario Mason NP with Dr. Hernadez at bedside for oversight.
[2023-02-13] MEDS: PIPERACILLN/TAZ 3.375GM/NS50ML 3.375 GM/50 ML BAG IVPB ×2 (00:02→05:59)
[2023-02-13 00:20] LABS: Appearance Urine Cloudy (Clear); Bacteria Urine 1+ /hpf; Bilirubin Urine Negative (Negative); Budding Yeast Urine Present /hpf; Color Urine Yellow (Yellow); Glucose Urine UA Negative (Negative); Ketones Urine Negative (Negative); Leukocyte Esterase Ur 2+ LEU/UL (Negative); Need Manual Microscopic Reviewed; Nitrate Urine Negative (Negative); Non Pathogenic Casts >20; Protein Urine 1+ mg/dL (Negative); RBC Urine 21-50 /hpf (0-2); Specific Grav Ur 1.018 (1.001-1.035); Squamous Epithelial Cell Urine None seen /hpf (Few)
[2023-02-13] MEDS: KCL 40 MEQ/WATER 100 ML 100 ML 25 ML IVPB (00:20)
[2023-02-13 00:21] LABS: Add Urine Microscopic? YES
--- NOTE | 2023-02-13 00:22 | PC.NURSE ---
Noninvasive Hemodynamic monitor noted patient to have SVI 3.9% not fluid responsive. Dr Rodriguezly notified over telephone with update
--- NOTE | 2023-02-13 01:11 | PC.NURSE ---
This patient, Gabriela Aguayo, was received from [ [id number]] on 02/12/23 at 2130. Patient/family oriented to unit policies and routines
[2023-02-13 01:14] LABS: MRSA (PCR) NOT DETECTED (NOT DETECTE)
[2023-02-13 05:08] LABS: Alveolar/Arterial O2 Gradient 90.5 mmHg; Base Excess ABG 4.3 mEq/l (+/-2.0); Carboxyhemoglobin 0.5 % THb (0-2.0); Fractional Inspired Oxygen 30 %; HCO3 ABG 28.1 mEq/l (22.0-26.0); Methemoglobin ABG 0.3 %THb (0-1.5); Oxygen Content ABG 13.8 %vol (16.0-22.0); Oxygen Saturation ABG 96.2 % (95.0-100.0); Oxyhemoglobin 94.1 % THb (90.0-100.0); PCO2 ABG 39.2 mmHg (35.0-45.0); PO2 ABG 77.3 mmHg (80.0-100.0); PO2 FiO2 Ratio Arterial Blood 2.58 %; Reduced Hemoglobin 5.1 %THb (0-5.0); Total Hemoglobin 10.4 g/dL (12.0-18.0); pH ABG 7.474 (7.350-7.450)
[2023-02-13 05:09] LABS: Arterial Blood Gas PEEP 5 cmH2O; Arterial Blood Gas Vent Mode CMV; Arterial Blood Gas Ventilator rate 18 /MIN; Device VENTILATOR; Modified Allen's Test Pass; Site Drawn LEFT RADIAL
[2023-02-13 05:10] LABS: Arterial Blood Gas Tidal Volume 400 ml
[2023-02-13] MEDS: CENTRAL LINE FLUSH 10 ML IV PUSH ×4 (06:02→20:15)
[2023-02-13 06:13] LABS: Glucose Point of Care 167 mg/dl (65-105)
--- NOTE | 2023-02-13 06:13 | P.PCNBED_ITS ---
Procedures Central Line Placement Right IJ: Central Line Date: 02/12/23 Central Line Time: 20:30 Consent: I have discussed with the patient and/or surrogate, the non-emergent placement of a central venous catheter, including its clinical necessity/indication and associated potential risks and complications. The patient and/or surrogate understand(s) and acknowledge(s) the need to proceed with central venous catheter insertion as an important element of the patient's clinical management. Time Out Performed: Yes Patient Position: trendelenburg Patient placed on monitor/pulse ox: Yes Provider Prep: mask, sterile gown, sterile gloves, Max. sterile barrier precautions, cap and hand hygiene with conventional soap/water or alcohol based hand rub Central line prep: 2% Chlorhexidine scrub Sterile US Technique with sterile gel/sterile probe covers: Yes Central line lumen inserted: triple Moldovan: 16 Length (cm): 16 Depth of Insertion (cm): 15 Post Procedure: sutured in place, good blood return, all ports aspirated, flushed, capped, transparent dressing, hemostatic product, antimicrobial product and aseptic technique maintained throughout procedure Post procedure x-ray: tip of catheter in good position and no pneumothorax seen Patient tolerated procedure: no complications Complications: none
[2023-02-13 06:15] LABS: Basophils Absolute Auto 0.1 K/mm3 (0.0-0.1); Basophils Percent Auto 0.3 % (0.2-1.2); Eosinophils Percent Auto 0.2 % (0-4.4); Hematocrit 29.4 % (37.0-47.0); Hemoglobin 8.9 g/dL (12.0-15.0); Immature Granulocyte Absolute 0.07 K/mm3 (0.00-0.031); Immature Granulocyte Percent A 0.4 % (0-0.5); Lymphocytes Absolute Auto 1.04 K/mm3 (0.9-3.2); Lymphocytes Percent Auto 5.4 % (18.3-44.2); Mean Corpuscular HGB Conc 30.3 g/dl (32-36); Mean Corpuscular Hemoglobin 29.9 pg (26-34); Mean Corpuscular Volume 98.7 fl (80-100); Mean Platelet Volume 9.3 fl (7.4-10.4); Monocytes Absolute Auto 0.8 K/mm3 (0.1-0.6); Monocytes Percent Auto 4.3 % (2.6-8.5); Neutrophils Absolute Auto 17.2 K/mm3 (1.3-6.7); Neutrophils Percent Auto 89.4 % (45.5-73.1); Platelet Count Result 396 k/mm3 (150-375); Red Blood Count 2.98 M/mm3 (4.2-5.4); Red Cell Distribution Width 17.4 % (11.5-14.5); White Blood Count 19.2 K/mm3 (4.5-10.0)
[2023-02-13 06:25] LABS: Anion Gap 5 mmol/L (8-16); Blood Urea Nitrogen 27 mg/dL (7-17); Calcium 8.4 mg/dL (8.4-10.2); Carbon Dioxide 30 mmol/L (22-30); Chloride 104 mmol/L (98-107); Estimated CRCL calculation 88 ml/min; Estimated Glomerular Filt Rate > 60; Glucose 174 mg/dL (65-110); Potassium 3.8 mmol/L (3.4-5.0); Sodium 139 mmol/L (137-145)
[2023-02-13 06:33] LABS: NT Pro B Type Natriuretic Pept 917 pg/mL (19.9-100)
--- NOTE | 2023-02-13 08:39 | WPDINTPN ---
Progress Note: A&P Assessment and Plan (1) Acute respiratory failure with hypoxia and hypercapnia: Code(s): J96.01 - Acute respiratory failure with hypoxia; J96.02 - Acute respiratory failure with hypercapnia Status: Acute Assessment and Plan: Acute hypercapnic respiratory failure with pCO2 154 on the ABG on admission -patient was a DNR and comfort measures only was placed on Vapotherm. 01/27: ABGs in the morning showed a pH of 6.79 with unreadable pCO2 and a PO2 of 57, discussed with patient's daughter Starr and updated her with patient's condition, she requested that we do everything and intubated the patient and the daughter rescinded the DNR status. -01/27:? Intubated - 02/01 left thoracentesis and 500 mL of fluid was removed. -02/07:? Extubated - 02/08: Transfer out of ICU - 02/12 patient reintubated. Likely combination of pulmonary edema and a hospital-acquired pneumonia Chest x-ray done yesterday showed worsening moderate interstitial edema. Patient had elevated WBC count and fever Blood culture sent. Will send repeat sputum culture Continue vancomycin. Change Zosyn to meropenem ABG and chest x-ray reviewed. Vent settings changed to tidal volume 300 and rate to 15 Continue bronchodilators Patient has baseline severe emphysema (2) Septic shock: Code(s): A41.9 - Sepsis, unspecified organism; R65.21 - Severe sepsis with septic shock Status: Acute Assessment and Plan: Patient initially admitted with septic shock secondary to pneumonia and UTI and was treated with IV fluids and vasopressors Later she developed volume overload and was diuresed. She completed a course of meropenem Now she is back in ICU with septic shock secondary to hospital-acquired pneumonia versus urinary tract infection, ? Aspiration pneumonia -01/26: Blood cultures growing Staph hominis, 1 of 2 bottles -01/26: Urine cultures ESBL E coli -01/26: MRSA screen negative -01/27: Sputum cultures are ordered -01/29: Repeat blood cultures growing Staph capitis in 1/2 bottles -completed course of meropenem (02/05) -02/12 repeat urine and blood culture sent 02/13 will send sputum cultures, change Tam catheter, UA is growing budding yeast will add fluconazole IV Continue vancomycin. Change Zosyn to meropenem as patient has history of ESBL (3) Pneumonia: Qualifiers: Laterality: left Lung location: lower lobe of lung Pneumonia type: due to unspecified organism Qualified Code(s): J18.9 - Pneumonia, unspecified organism Code(s): J18.9 - Pneumonia, unspecified organism Status: Acute Assessment and Plan: See above (4) Urinary tract infection: Qualifiers: Hematuria presence: without hematuria Urinary tract infection type: site unspecified Qualified Code(s): N39.0 - Urinary tract infection, site not specified Code(s): N39.0 - Urinary tract infection, site not specified Status: Acute Assessment and Plan: See above (5) COPD (chronic obstructive pulmonary disease): Qualifiers: COPD type: unspecified COPD Qualified Code(s): J44.9 - Chronic obstructive pulmonary disease, unspecified Code(s): J44.9 - Chronic obstructive pulmonary disease, unspecified Status: Acute Assessment and Plan: History of COPD and emphysema, on home O2 -continue bronchodilators (6) Seizures: Code(s): R56.9 - Unspecified convulsions Status: Acute Assessment and Plan: Patient has a history of seizures -continue home Keppra per PEG tube (7) Essential hypertension: Code(s): I10 - Essential (primary) hypertension Status: Acute Assessment and Plan: History of essential hypertension, patient currently in septic shock, (8) GERD (gastroesophageal reflux disease): Code(s): K21.9 - Gastro-esophageal reflux disease without esophagitis Status: Acute Assessment and Plan: Continue Protonix (9) Anemia:
[2023-02-13] MEDS: FONDAPARINUX SODIUM 2.5 MG/0.5 ML SYRINGE SUB-Q (08:46)
[2023-02-13] MEDS: ACIDOPHILUS/BULGARICUS CHEWABLE TABLET 1 TABLET PO (08:46)
[2023-02-13] MEDS: MINERAL OIL/WHITE PETROLATUM OINTMENT 1 APPLIC EACH EYE ×2 (08:47→20:15)
[2023-02-13] MEDS: levETIRAcetam 250 MG TABLET 750 MG PO ×2 (08:47→20:15)
[2023-02-13] MEDS: MEROPENEM 1 GM/NS 100 ML 1 GM/100 ML BAG IVPB ×3 (08:47→23:38)
[2023-02-13] MEDS: INSULIN GLARGINE (*BKC) 100 UNITS/ML 15 UNITS SUB-Q (08:47)
[2023-02-13] MEDS: PANTOPRAZOLE SODIUM IV 40 MG VIAL IV PUSH ×2 (08:47→20:15)
[2023-02-13] MEDS: FLUCONAZOLE 200 MG/NACL 100 ML 200 MG/100 ML BAG 100 MG IVPB (10:00)
[2023-02-13 10:01] LABS: Magnesium 1.9 mg/dL (1.6-2.3); Phosphorus 2.4 mg/dL (2.5-4.5)
--- NOTE | 2023-02-13 10:38 | PCNFU ---
Nutrition Follow-Up Complete: Inadequate Energy Intake as related to mechanical ventilation as evidenced by suboptimal tube feeding rate. Goal:Meet estimated nutritional needs Patient is meeting current goal. Pt current nutrition is Jevity 1.5 at 55 ml/hr. Last recorded weight is 64.6 kg Bowel Motility:+BM 02/13 Labs Reviewed:Glu 174, Cr 0.4,BUN 27, Hct 29.4,Hgb 8.9 Meds Noted:Precedex, Keppra, Miralax, Levophed, Fentanyl. Skin: WNL Additional Notes: Patient reintubated on 02/12. Tube feedings remain of Jevity 1.5 at 55 ml/hr with flush 150 ml flush q 6 hours. Tube feedings is providing 1815 kcals/77 gms protein/920 ml water. Agree with diet orders. Will monitor in ICU rounds and weight, labs, skin, tube feeding tolerance every Sunday and Sunday.
[2023-02-13] MEDS: VANCOMYCIN 1,250 MG/NS 250 ML 1,250 MG/250 ML BAG 166.67 MG IVPB ×2 (10:45→22:31)
[2023-02-13 12:53] LABS: Glucose Point of Care 121 mg/dl (65-105)
[2023-02-13 18:15] LABS: Glucose Point of Care 96 mg/dl (65-105)
[2023-02-13] MEDS: FENTANYL 2,500MCG/NS250ML(*CRX 2,500 MCG/250 ML BAG IV CONT (19:45)
[2023-02-13 23:28] LABS: Glucose Point of Care 113 mg/dl (65-105)
[2023-02-14] VITALS (31 sets, daily range): BP systolic 72–137; BP diastolic 57–88; PULSE 81–172; RESP 18–24; TEMP 37.1–37.6; O2SAT 95–100
[2023-02-14 04:38] LABS: Alveolar/Arterial O2 Gradient 82.6 mmHg; Base Excess ABG 1.4 mEq/l (+/-2.0); Carboxyhemoglobin 0.5 % THb (0-2.0); Device VENTILATOR; Fractional Inspired Oxygen 30 %; HCO3 ABG 28.1 mEq/l (22.0-26.0); Methemoglobin ABG 0.4 %THb (0-1.5); Modified Allen's Test Pass; Oxygen Content ABG 13.2 %vol (16.0-22.0); Oxygen Saturation ABG 91.5 % (95.0-100.0); Oxyhemoglobin 88.4 % THb (90.0-100.0); PO2 ABG 66.7 mmHg (80.0-100.0); PO2 FiO2 Ratio Arterial Blood 2.22 %; Reduced Hemoglobin 10.7 %THb (0-5.0); Site Drawn LEFT RADIAL; Total Hemoglobin 10.6 g/dL (12.0-18.0); pH ABG 7.326 (7.350-7.450)
[2023-02-14 04:39] LABS: Arterial Blood Gas PEEP 5 cmH2O; Arterial Blood Gas Tidal Volume 300 ml; Arterial Blood Gas Vent Mode CMV; Arterial Blood Gas Ventilator rate 18 /MIN
[2023-02-14 04:43] LABS: Hematocrit 29.3 % (37.0-47.0); Hemoglobin 8.8 g/dL (12.0-15.0); Mean Corpuscular Hemoglobin 30.1 pg (26-34); Mean Corpuscular Volume 100.3 fl (80-100); Platelet Count Result 275 k/mm3 (150-375); Red Blood Count 2.92 M/mm3 (4.2-5.4); Red Cell Distribution Width 17.7 % (11.5-14.5); White Blood Count 10.9 K/mm3 (4.5-10.0)
[2023-02-14 04:52] LABS: Alanine Aminotransferase 12 U/L (6-35); Albumin Level 3.5 g/dL (3.5-5.1); Alkaline Phosphatase 82 U/L (38-126); Anion Gap 5 mmol/L (8-16); Aspartate Amino Transferase 22 U/L (14-36); Bilirubin,Total 1.2 mg/dL (0.2-1.3); Blood Urea Nitrogen 22 mg/dL (7-17); Calcium 8.5 mg/dL (8.4-10.2); Carbon Dioxide 32 mmol/L (22-30); Chloride 104 mmol/L (98-107); Estimated CRCL calculation 72 ml/min; Estimated Glomerular Filt Rate > 60; Glucose 164 mg/dL (65-110); Potassium 3.7 mmol/L (3.4-5.0); Sodium 141 mmol/L (137-145)
[2023-02-14] MEDS: CENTRAL LINE FLUSH 10 ML IV PUSH ×3 (05:43→22:57)
--- NOTE | 2023-02-14 08:16 | WPDINTPN ---
Progress Note: A&P Assessment and Plan (1) Acute respiratory failure with hypoxia and hypercapnia: Code(s): J96.01 - Acute respiratory failure with hypoxia; J96.02 - Acute respiratory failure with hypercapnia Status: Acute Assessment and Plan: Acute hypercapnic respiratory failure with pCO2 154 on the ABG on admission -patient was a DNR and comfort measures only was placed on Vapotherm. 01/27: ABGs in the morning showed a pH of 6.79 with unreadable pCO2 and a PO2 of 57, discussed with patient's daughter Starr and updated her with patient's condition, she requested that we do everything and intubated the patient and the daughter rescinded the DNR status. -01/27:? Intubated - 02/01 left thoracentesis and 500 mL of fluid was removed. -02/07:? Extubated - 02/08: Transfer out of ICU - 02/12 patient reintubated. Likely combination of pulmonary edema and a hospital-acquired pneumonia Chest x-ray done yesterday showed worsening moderate interstitial edema. Patient had elevated WBC count and fever Blood culture and sputum culture sent Continue vancomycin and meropenem ABG and chest x-ray reviewed. Vent settings changed to tidal volume 350 and rate to 18 Continue bronchodilators Patient has baseline severe emphysema Will give IV Lasix Sedation holiday and trial of PSV Change fentanyl drip to Precedex (2) Septic shock: Code(s): A41.9 - Sepsis, unspecified organism; R65.21 - Severe sepsis with septic shock Status: Acute Assessment and Plan: Patient initially admitted with septic shock secondary to pneumonia and UTI and was treated with IV fluids and vasopressors Later she developed volume overload and was diuresed. She completed a course of meropenem Now she is back in ICU with septic shock secondary to hospital-acquired pneumonia versus urinary tract infection, ? Aspiration pneumonia -01/26: Blood cultures growing Staph hominis, 1 of 2 bottles -01/26: Urine cultures ESBL E coli -01/26: MRSA screen negative -01/27: Sputum cultures are ordered -01/29: Repeat blood cultures growing Staph capitis in 1/2 bottles -completed course of meropenem (02/05) -02/12 repeat urine and blood culture sent 02/13 will send sputum cultures, change Tam catheter, UA is growing budding yeast will add fluconazole IV Continue and meropenem as patient has history of ESBL Cultures as above Off Levophed (3) Pneumonia: Qualifiers: Laterality: left Lung location: lower lobe of lung Pneumonia type: due to unspecified organism Qualified Code(s): J18.9 - Pneumonia, unspecified organism Code(s): J18.9 - Pneumonia, unspecified organism Status: Acute Assessment and Plan: See above (4) Urinary tract infection: Qualifiers: Hematuria presence: without hematuria Urinary tract infection type: site unspecified Qualified Code(s): N39.0 - Urinary tract infection, site not specified Code(s): N39.0 - Urinary tract infection, site not specified Status: Acute Assessment and Plan: See above (5) COPD (chronic obstructive pulmonary disease): Qualifiers: COPD type: unspecified COPD Qualified Code(s): J44.9 - Chronic obstructive pulmonary disease, unspecified Code(s): J44.9 - Chronic obstructive pulmonary disease, unspecified Status: Acute Assessment and Plan: History of COPD and emphysema, on home O2 -continue bronchodilators (6) Seizures: Code(s): R56.9 - Unspecified convulsions Status: Acute Assessment and Plan: Patient has a history of seizures -continue home Keppra per PEG tube (7) Essential hypertension: Code(s): I10 - Essential (primary) hypertension Status: Acute Assessment and Plan: History of essential hypertension, patient currently in septic shock, (8) GERD (gastroesophageal reflux disease): Code(s): K21.9 - Gastro-esophageal reflux disease without esophagitis Status: Acut
[2023-02-14] MEDS: MINERAL OIL/WHITE PETROLATUM OINTMENT 1 APPLIC EACH EYE ×2 (09:00→22:56)
[2023-02-14] MEDS: MEROPENEM 1 GM/NS 100 ML 1 GM/100 ML BAG IVPB ×2 (09:41→16:29)
[2023-02-14] MEDS: PANTOPRAZOLE SODIUM IV 40 MG VIAL IV PUSH ×2 (09:41→22:57)
[2023-02-14] MEDS: ACIDOPHILUS/BULGARICUS CHEWABLE TABLET 1 TABLET PO (09:42)
[2023-02-14] MEDS: levETIRAcetam 250 MG TABLET 750 MG PO ×2 (09:42→22:57)
[2023-02-14] MEDS: POTASSIUM CHLORIDE 20 MEQ PACKET (FOR LIQUID) 40 MEQ FEED TUBE (09:42)
[2023-02-14] MEDS: FONDAPARINUX SODIUM 2.5 MG/0.5 ML SYRINGE SUB-Q (09:43)
[2023-02-14] MEDS: FLUCONAZOLE 200 MG/NACL 100 ML 200 MG/100 ML BAG 100 MG IVPB (09:43)
[2023-02-14] MEDS: INSULIN GLARGINE (*BKC) 100 UNITS/ML 15 UNITS SUB-Q (10:13)
[2023-02-14 11:15] LABS: Vancomycin Trough 18.3 ug/mL (10.0-20.0)
--- NOTE | 2023-02-14 12:38 | PCFNICU ---
ICU Rounding Note: Pt current nutrition is Jevity 1.5 @ goal rate 55 ml/h. 1815 kcal, 77 g protein,, 30 ml flushes q 4 hours. Nutrition recommendation: Continue with current tube feeding. If pt is extubated, still requires same TF regimen. Last recorded weight is 65.9 kg. Bowel Motility: Last BM 02/13/23 Labs Reviewed: Hgb 8.8, Hct 29.3, BUN 22, Cre 0.5, Glu 164 Meds Noted: Precedex, Keppra, Miralax Skin: WNL Additional Notes: Reintubated 02/12/23. Breathing trial today, sedation on hold. Tube feeding is well tolerated. Pt has chronic PEG tube. return to same tube feeding orders if extubated. Following daily in ICU rounds. Will monitor weight, labs, skin, tube feeding tolerance every Sunday and Sunday..
[2023-02-14] MEDS: VANCOMYCIN 1,250 MG/NS 250 ML 1,250 MG/250 ML BAG 166.67 MG IVPB (13:33)
[2023-02-14 13:46] LABS: Glucose Point of Care 140 mg/dl (65-105)
--- NOTE | 2023-02-14 15:53 | PM.IMPN ---
Progress Note: A&P Assessment and Plan (1) Acute respiratory failure with hypoxia and hypercapnia: Code(s): J96.01 - Acute respiratory failure with hypoxia; J96.02 - Acute respiratory failure with hypercapnia Status: Acute Assessment and Plan: Acute hypercapnic respiratory failure with pCO2 154 on the ABG on admission -patient was a DNR and comfort measures only was placed on Vapotherm. 01/27: ABGs in the morning showed a pH of 6.79 with unreadable pCO2 and a PO2 of 57, discussed with patient's daughter Starr and updated her with patient's condition, she requested that we do everything and intubated the patient and the daughter rescinded the DNR status. -01/27:? Intubated - 02/01 left thoracentesis and 500 mL of fluid was removed. -02/07:? Extubated - 02/08: Transfer out of ICU - 02/12 patient reintubated. Likely combination of pulmonary edema and a hospital-acquired pneumonia Chest x-ray done yesterday showed worsening moderate interstitial edema. Patient had elevated WBC count and fever cultures still negative Continue vancomycin and meropenem Continue Vent adjustment and sedation holiday and weaning per hearing impaired teacher monitor closely (2) Septic shock: Code(s): A41.9 - Sepsis, unspecified organism; R65.21 - Severe sepsis with septic shock Status: Acute Assessment and Plan: Patient initially admitted with septic shock secondary to pneumonia and UTI and was treated with IV fluids and vasopressors Later she developed volume overload and was diuresed. She completed a course of meropenem Now she is back in ICU with septic shock secondary to hospital-acquired pneumonia versus urinary tract infection, ? Aspiration pneumonia -01/26: Blood cultures growing Staph hominis, 1 of 2 bottles -01/26: Urine cultures ESBL E coli -01/26: MRSA screen negative -01/27: Sputum cultures are ordered -01/29: Repeat blood cultures growing Staph capitis in 1/2 bottles -completed course of meropenem (02/05) -02/12 repeat urine and blood culture sent 02/13 will send sputum cultures, change Tam catheter, UA is growing budding yeast will add fluconazole IV Continue Meropenem and Fluconazole monitor cultures (3) Pneumonia: Qualifiers: Laterality: left Lung location: lower lobe of lung Pneumonia type: due to unspecified organism Qualified Code(s): J18.9 - Pneumonia, unspecified organism Code(s): J18.9 - Pneumonia, unspecified organism Status: Acute Assessment and Plan: See above (4) Urinary tract infection: Qualifiers: Hematuria presence: without hematuria Urinary tract infection type: site unspecified Qualified Code(s): N39.0 - Urinary tract infection, site not specified Code(s): N39.0 - Urinary tract infection, site not specified Status: Acute Assessment and Plan: See above (5) COPD (chronic obstructive pulmonary disease): Qualifiers: COPD type: unspecified COPD Qualified Code(s): J44.9 - Chronic obstructive pulmonary disease, unspecified Code(s): J44.9 - Chronic obstructive pulmonary disease, unspecified Status: Acute Assessment and Plan: History of COPD and emphysema, on home O2 -continue bronchodilators (6) Seizures: Code(s): R56.9 - Unspecified convulsions Status: Acute Assessment and Plan: Patient has a history of seizures -continue home Keppra per PEG tube (7) Essential hypertension: Code(s): I10 - Essential (primary) hypertension Status: Acute Assessment and Plan: History of essential hypertension, patient currently in septic shock, (8) GERD (gastroesophageal reflux disease): Code(s): K21.9 - Gastro-esophageal reflux disease without esophagitis Status: Acute Assessment and Plan: Continue Protonix (9) Anemia: Code(s): D64.9 - Anemia, unspecified Status: Acute Assessment and Plan: -iron panel reflective of anemia c
[2023-02-14 17:26] LABS: Glucose Point of Care 85 mg/dl (65-105)
[2023-02-15] VITALS (20 sets, daily range): BP systolic 107–157; BP diastolic 63–92; PULSE 71–98; RESP 12–25; TEMP 37.1–37.4; O2SAT 92–98
[2023-02-15] MEDS: VANCOMYCIN 1,250 MG/NS 250 ML 1,250 MG/250 ML BAG 166.67 MG IVPB (00:46)
[2023-02-15 00:58] LABS: Glucose Point of Care 84 mg/dl (65-105)
[2023-02-15] MEDS: MEROPENEM 1 GM/NS 100 ML 1 GM/100 ML BAG IVPB ×3 (02:02→17:53)
[2023-02-15 04:51] LABS: Alveolar/Arterial O2 Gradient 79.2 mmHg; Base Excess ABG 3.7 mEq/l (+/-2.0); Carboxyhemoglobin 0.3 % THb (0-2.0); Fractional Inspired Oxygen 30 %; HCO3 ABG 27.9 mEq/l (22.0-26.0); Methemoglobin ABG 0.4 %THb (0-1.5); Oxygen Content ABG 12.9 %vol (16.0-22.0); Oxyhemoglobin 95.3 % THb (90.0-100.0); PCO2 ABG 40.6 mmHg (35.0-45.0); Total Hemoglobin 9.5 g/dL (12.0-18.0); pH ABG 7.455 (7.350-7.450)
[2023-02-15 04:54] LABS: Modified Allen's Test Pass; Site Drawn LEFT RADIAL
[2023-02-15 04:55] LABS: Arterial Blood Gas PEEP 5 cmH2O; Arterial Blood Gas Tidal Volume 350 ml; Arterial Blood Gas Vent Mode CMV; Arterial Blood Gas Ventilator rate 18 /MIN; Device VENTILATOR
[2023-02-15 06:31] LABS: Basophils Percent Auto 0.7 % (0.2-1.2); Eosinophils Absolute Auto 0.3 K/mm3 (0-0.3); Eosinophils Percent Auto 5.2 % (0-4.4); Hematocrit 25.5 % (37.0-47.0); Hemoglobin 7.5 g/dL (12.0-15.0); Immature Granulocyte Absolute 0.02 K/mm3 (0.00-0.031); Immature Granulocyte Percent A 0.3 % (0-0.5); Lymphocytes Absolute Auto 0.81 K/mm3 (0.9-3.2); Lymphocytes Percent Auto 13.2 % (18.3-44.2); Mean Corpuscular HGB Conc 29.4 g/dl (32-36); Mean Platelet Volume 9.4 fl (7.4-10.4); Monocytes Absolute Auto 0.5 K/mm3 (0.1-0.6); Monocytes Percent Auto 7.7 % (2.6-8.5); Neutrophils Absolute Auto 4.5 K/mm3 (1.3-6.7); Neutrophils Percent Auto 72.9 % (45.5-73.1); Platelet Count Result 229 k/mm3 (150-375); Red Cell Distribution Width 17.4 % (11.5-14.5); White Blood Count 6.1 K/mm3 (4.5-10.0)
[2023-02-15 06:43] LABS: Alanine Aminotransferase 10 U/L (6-35); Albumin Level 3.2 g/dL (3.5-5.1); Alkaline Phosphatase 75 U/L (38-126); Anion Gap 4 mmol/L (8-16); Aspartate Amino Transferase 18 U/L (14-36); Bilirubin,Total 0.9 mg/dL (0.2-1.3); Blood Urea Nitrogen 23 mg/dL (7-17); Calcium 8.7 mg/dL (8.4-10.2); Carbon Dioxide 32 mmol/L (22-30); Chloride 106 mmol/L (98-107); Estimated CRCL calculation 88 ml/min; Estimated Glomerular Filt Rate > 60; Glucose 109 mg/dL (65-110); Sodium 142 mmol/L (137-145)
[2023-02-15] MEDS: CENTRAL LINE FLUSH 10 ML IV PUSH ×4 (06:49→21:57)
[2023-02-15 07:30] LABS: Anisocytosis 1+ (NORMAL); Hypochromasia 1+ (NORMAL); Platelet Estimate Adequate (Adequate); Schistocytes None Seen (NORMAL)
[2023-02-15] MEDS: levETIRAcetam 250 MG TABLET 750 MG PO ×2 (08:31→21:57)
[2023-02-15] MEDS: PANTOPRAZOLE SODIUM IV 40 MG VIAL IV PUSH ×2 (08:31→21:57)
[2023-02-15] MEDS: INSULIN GLARGINE (*BKC) 100 UNITS/ML 15 UNITS SUB-Q (08:31)
[2023-02-15] MEDS: ACIDOPHILUS/BULGARICUS CHEWABLE TABLET 1 TABLET PO (08:31)
[2023-02-15] MEDS: FLUCONAZOLE 200 MG/NACL 100 ML 200 MG/100 ML BAG IVPB (08:32)
[2023-02-15] MEDS: MINERAL OIL/WHITE PETROLATUM OINTMENT 1 APPLIC EACH EYE ×2 (08:32→21:57)
[2023-02-15] MEDS: FONDAPARINUX SODIUM 2.5 MG/0.5 ML SYRINGE SUB-Q (08:32)
[2023-02-15] MEDS: FUROSEMIDE INJ 40 MG/4 ML VIAL IV PUSH (08:33)
--- NOTE | 2023-02-15 08:34 | WPDINTPN ---
Progress Note: A&P Assessment and Plan (1) Acute respiratory failure with hypoxia and hypercapnia: Code(s): J96.01 - Acute respiratory failure with hypoxia; J96.02 - Acute respiratory failure with hypercapnia Status: Acute Assessment and Plan: Acute hypercapnic respiratory failure with pCO2 154 on the ABG on admission -patient was a DNR and comfort measures only was placed on Vapotherm. 01/27: ABGs in the morning showed a pH of 6.79 with unreadable pCO2 and a PO2 of 57, discussed with patient's daughter Starr and updated her with patient's condition, she requested that we do everything and intubated the patient and the daughter rescinded the DNR status. -01/27:? Intubated - 02/01 left thoracentesis and 500 mL of fluid was removed. -02/07:? Extubated - 02/08: Transfer out of ICU - 02/12 patient reintubated. Likely combination of pulmonary edema and a hospital-acquired pneumonia Chest x-ray done yesterday showed worsening moderate interstitial edema. Patient had elevated WBC count and fever Blood culture and sputum culture sent and are negative till now Nasal MRSA screen is negative Continue meropenem but discontinue vancomycin ABG and chest x-ray reviewed. Vent settings changed to tidal volume 320 and rate to 15 Patient tolerated PSV 12/5 for few hours yesterday will treat try again today Continue bronchodilators Patient has baseline severe emphysema Will give IV Lasix today Off continue sedation (2) Septic shock: Code(s): A41.9 - Sepsis, unspecified organism; R65.21 - Severe sepsis with septic shock Status: Acute Assessment and Plan: Patient initially admitted with septic shock secondary to pneumonia and UTI and was treated with IV fluids and vasopressors Later she developed volume overload and was diuresed. She completed a course of meropenem Now she is back in ICU with septic shock secondary to hospital-acquired pneumonia versus urinary tract infection, ? Aspiration pneumonia -01/26: Blood cultures growing Staph hominis, 1 of 2 bottles -01/26: Urine cultures ESBL E coli -01/26: MRSA screen negative -01/27: Sputum cultures are ordered -01/29: Repeat blood cultures growing Staph capitis in 1/2 bottles -completed course of meropenem (02/05) -02/12 repeat urine and blood culture sent 02/13 will send sputum cultures, change Tam catheter, UA is growing budding yeast will add fluconazole IV Continue meropenem as patient has history of ESBL and fluconazole Cultures as above Off Levophed (3) Pneumonia: Qualifiers: Laterality: left Lung location: lower lobe of lung Pneumonia type: due to unspecified organism Qualified Code(s): J18.9 - Pneumonia, unspecified organism Code(s): J18.9 - Pneumonia, unspecified organism Status: Acute Assessment and Plan: See above (4) Urinary tract infection: Qualifiers: Hematuria presence: without hematuria Urinary tract infection type: site unspecified Qualified Code(s): N39.0 - Urinary tract infection, site not specified Code(s): N39.0 - Urinary tract infection, site not specified Status: Acute Assessment and Plan: See above (5) COPD (chronic obstructive pulmonary disease): Qualifiers: COPD type: unspecified COPD Qualified Code(s): J44.9 - Chronic obstructive pulmonary disease, unspecified Code(s): J44.9 - Chronic obstructive pulmonary disease, unspecified Status: Acute Assessment and Plan: History of COPD and emphysema, on home O2 -continue bronchodilators (6) Seizures: Code(s): R56.9 - Unspecified convulsions Status: Acute Assessment and Plan: Patient has a history of seizures -continue home Keppra per PEG tube (7) Essential hypertension: Code(s): I10 - Essential (primary) hypertension Status: Acute Assessment and Plan: History of essential hypertension, patient currently in septic shock, (8) GERD (gastroesopha
--- NOTE | 2023-02-15 10:29 | PCFNICU ---
ICU Rounding Note: Pt current nutrition is Jevity 1.5 at 55 ml/hr. Last recorded weight is 65.9 kg. Bowel Motility:+Bm reported 02/14 Labs Reviewed:Cr 0.4,BUN 23, Hct 25.5,Hgb 7.5 Meds Noted: Meropenem, Keppra, Diflucan. Skin:WNL Additional Notes: Patient remains on mechanical vent. PEG feedings remain of Jevity 1.5 at 55 ml/hr and tolerating. Flush 150 ml q 6 hours. No sedation. [employer] Experimental plans to continue mechanical ventilation today. Agree with diet orders. Following daily in ICU rounds. Will monitor weight, labs, skin, tube feeding tolerance every Sunday and Sunday.
[2023-02-15 11:51] LABS: Glucose Point of Care 121 mg/dl (65-105)
--- NOTE | 2023-02-15 14:32 | PM.IMPN ---
Progress Note: A&P Assessment and Plan (1) Acute respiratory failure with hypoxia and hypercapnia: Code(s): J96.01 - Acute respiratory failure with hypoxia; J96.02 - Acute respiratory failure with hypercapnia Status: Acute Assessment and Plan: Acute hypercapnic respiratory failure with pCO2 154 on the ABG on admission -patient was a DNR and comfort measures only was placed on Vapotherm. 01/27:? ABGs in the morning showed a pH of 6.79 with unreadable pCO2 and a PO2 of 57, discussed with patient's daughter Starr and updated her with patient's condition, she requested that we do everything and intubated the patient and the daughter rescinded the DNR status. -01/27:? Intubated - 02/01 left thoracentesis and 500 mL of fluid was removed. -02/07:? Extubated - 02/08:? Transfer out of ICU - 02/12 patient reintubated.? Likely combination of pulmonary edema and a hospital-acquired pneumonia Chest x-ray done yesterday showed worsening moderate interstitial edema.? Patient had elevated WBC count and fever cultures still negative Continue Meropenem, MRSA negative thus Vanc discontinued Continue Vent adjustment and sedation holiday and weaning? per ceiling installer monitor closely (2) Septic shock: Code(s): A41.9 - Sepsis, unspecified organism; R65.21 - Severe sepsis with septic shock Status: Acute Assessment and Plan: Patient initially admitted with septic shock secondary to pneumonia and UTI and was treated with IV fluids and vasopressors Later she developed volume overload and was diuresed. She completed a course of meropenem Now she is back in ICU with septic shock secondary to hospital-acquired pneumonia versus urinary tract infection, ? Aspiration pneumonia -01/26:? Blood cultures growing Staph hominis, 1 of 2 bottles -01/26:? Urine cultures ESBL E coli -01/26:? MRSA screen negative -01/27:? Sputum cultures are ordered -01/29:? Repeat blood cultures growing Staph capitis in 1/2 bottles -completed course of meropenem (02/05) -02/12 repeat urine and blood culture sent 02/13 will send sputum cultures, change Tam catheter, UA is growing budding yeast will add fluconazole IV Continue Meropenem and Fluconazole monitor cultures (3) Pneumonia: Qualifiers: Laterality: left Lung location: lower lobe of lung Pneumonia type: due to unspecified organism Qualified Code(s): J18.9 - Pneumonia, unspecified organism Code(s): J18.9 - Pneumonia, unspecified organism Status: Acute Assessment and Plan: See above (4) Urinary tract infection: Qualifiers: Hematuria presence: without hematuria Urinary tract infection type: site unspecified Qualified Code(s): N39.0 - Urinary tract infection, site not specified Code(s): N39.0 - Urinary tract infection, site not specified Status: Acute Assessment and Plan: See above (5) COPD (chronic obstructive pulmonary disease): Qualifiers: COPD type: unspecified COPD Qualified Code(s): J44.9 - Chronic obstructive pulmonary disease, unspecified Code(s): J44.9 - Chronic obstructive pulmonary disease, unspecified Status: Acute Assessment and Plan: History of COPD and emphysema, on home O2 -continue bronchodilators (6) Seizures: Code(s): R56.9 - Unspecified convulsions Status: Acute Assessment and Plan: Patient has a history of seizures -continue home Keppra per PEG tube (7) Essential hypertension: Code(s): I10 - Essential (primary) hypertension Status: Acute Assessment and Plan: History of essential hypertension, patient currently in septic shock, (8) GERD (gastroesophageal reflux disease): Code(s): K21.9 - Gastro-esophageal reflux disease without esophagitis Status: Acute Assessment and Plan: Continue Protonix (9) Anemia: Code(s): D64.9 - Anemia, unspecified Status: Acute Assessment and Plan: -iron panel
[2023-02-15 17:49] LABS: Glucose Point of Care 113 mg/dl (65-105)
--- NOTE | 2023-02-15 19:28 | PC.NURSE ---
Patient daughter Starr called for update. Explained that this RN has just come onto shift and patient vital signs are stable at this time. Starr asked for update on patient chest xray and whether or not antibiotics are working. This RN explained that this RN cannot interpret that information and that physician should be the one to speak with her regarding imaging and antibiotics. Also, that per dayshift RN, physician hopes to extubate tomorrow, however, this RN has observed large amounts of thick secretions from patient ET tube since coming onto shift. Also, that it was not reported that patient completed breathing trial today, but that this RN is within direct eyesight of patient who is currently breathing 23 breaths per minute when the ventilator is set at 18 bpm and patient is awake yet resting comfortably at this time.
--- NOTE | 2023-02-15 21:15 | PC.NURSE ---
Returned phone call to patient's daughter Starr. Answered all questions and followed up with earlier conversation regarding SBT today (per RT patient was on SBT today from [id number]).
[2023-02-16] VITALS (30 sets, daily range): BP systolic 109–151; BP diastolic 68–96; PULSE 75–106; RESP 17–27; TEMP 37–37.7; O2SAT 93–97
[2023-02-16] MEDS: MEROPENEM 1 GM/NS 100 ML 1 GM/100 ML BAG IVPB ×2 (00:42→08:25)
[2023-02-16 00:53] LABS: Glucose Point of Care 115 mg/dl (65-105)
[2023-02-16] MEDS: CENTRAL LINE FLUSH 10 ML IV PUSH ×5 (05:31→21:51)
[2023-02-16 05:35] LABS: Basophils Percent Auto 0.7 % (0.2-1.2); Eosinophils Absolute Auto 0.4 K/mm3 (0-0.3); Eosinophils Percent Auto 8.1 % (0-4.4); Hematocrit 27.2 % (37.0-47.0); Lymphocytes Percent Auto 24.2 % (18.3-44.2); Mean Corpuscular HGB Conc 29.4 g/dl (32-36); Mean Corpuscular Hemoglobin 29.1 pg (26-34); Mean Corpuscular Volume 98.9 fl (80-100); Mean Platelet Volume 9.4 fl (7.4-10.4); Monocytes Absolute Auto 0.4 K/mm3 (0.1-0.6); Monocytes Percent Auto 8.8 % (2.6-8.5); Neutrophils Absolute Auto 2.6 K/mm3 (1.3-6.7); Neutrophils Percent Auto 58.2 % (45.5-73.1); Platelet Count Result 248 k/mm3 (150-375); Red Blood Count 2.75 M/mm3 (4.2-5.4); Red Cell Distribution Width 17.1 % (11.5-14.5); White Blood Count 4.5 K/mm3 (4.5-10.0)
[2023-02-16 05:36] LABS: Alveolar/Arterial O2 Gradient 87.9 mmHg; Base Excess ABG 8.5 mEq/l (+/-2.0); Carboxyhemoglobin 0.3 % THb (0-2.0); Device VENTILATOR; Fractional Inspired Oxygen 30 %; HCO3 ABG 33.4 mEq/l (22.0-26.0); Methemoglobin ABG 0.4 %THb (0-1.5); Modified Allen's Test Unable to perform; Oxygen Content ABG 12.1 %vol (16.0-22.0); Oxygen Saturation ABG 94.4 % (95.0-100.0); Oxyhemoglobin 91.2 % THb (90.0-100.0); PCO2 ABG 48.5 mmHg (35.0-45.0); Reduced Hemoglobin 8.1 %THb (0-5.0); Site Drawn LEFT RADIAL; Total Hemoglobin 9.4 g/dL (12.0-18.0); pH ABG 7.456 (7.350-7.450)
[2023-02-16 05:37] LABS: Arterial Blood Gas PEEP 5 cmH2O; Arterial Blood Gas Tidal Volume 320 ml; Arterial Blood Gas Vent Mode CMV; Arterial Blood Gas Ventilator rate 15 /MIN
[2023-02-16 05:47] LABS: Lactic Acid Reflex 0.8 mmol/L (0.7-2.0)
[2023-02-16 05:51] LABS: Alanine Aminotransferase 11 U/L (6-35); Albumin Level 3.6 g/dL (3.5-5.1); Alkaline Phosphatase 89 U/L (38-126); Anion Gap 2 mmol/L (8-16); Aspartate Amino Transferase 18 U/L (14-36); Bilirubin,Total 0.9 mg/dL (0.2-1.3); Blood Urea Nitrogen 21 mg/dL (7-17); Calcium 8.9 mg/dL (8.4-10.2); Carbon Dioxide 36 mmol/L (22-30); Chloride 102 mmol/L (98-107); Estimated CRCL calculation 88 ml/min; Estimated Glomerular Filt Rate > 60; Glucose 93 mg/dL (65-110); Magnesium 1.9 mg/dL (1.6-2.3); Potassium 3.8 mmol/L (3.4-5.0); Sodium 140 mmol/L (137-145)
[2023-02-16 06:11] LABS: Platelet Estimate Adequate (Adequate)
[2023-02-16 06:12] LABS: Anisocytosis 1+ (NORMAL); Hypochromasia 2+ (NORMAL); Schistocytes None Seen (NORMAL)
[2023-02-16] MEDS: POTASSIUM CHLORIDE 20 MEQ PACKET (FOR LIQUID) 40 MEQ FEED TUBE (08:11)
[2023-02-16] MEDS: FLUCONAZOLE 100 MG TABLET 200 MG FEED TUBE (08:11)
[2023-02-16] MEDS: ACIDOPHILUS/BULGARICUS CHEWABLE TABLET 1 TABLET PO (08:12)
[2023-02-16] MEDS: FONDAPARINUX SODIUM 2.5 MG/0.5 ML SYRINGE SUB-Q (08:12)
[2023-02-16] MEDS: levETIRAcetam 250 MG TABLET 750 MG PO ×2 (08:12→20:48)
--- NOTE | 2023-02-16 08:12 | WPDINTPN ---
Progress Note: A&P Assessment and Plan (1) Acute respiratory failure with hypoxia and hypercapnia: Code(s): J96.01 - Acute respiratory failure with hypoxia; J96.02 - Acute respiratory failure with hypercapnia Status: Acute Assessment and Plan: Acute hypercapnic respiratory failure with pCO2 154 on the ABG on admission -patient was a DNR and comfort measures only was placed on Vapotherm. 01/27: ABGs in the morning showed a pH of 6.79 with unreadable pCO2 and a PO2 of 57, discussed with patient's daughter Starr and updated her with patient's condition, she requested that we do everything and intubated the patient and the daughter rescinded the DNR status. -01/27:? Intubated - 02/01 left thoracentesis and 500 mL of fluid was removed. -02/07:? Extubated - 02/08: Transfer out of ICU - 02/12 patient reintubated. Likely combination of pulmonary edema and a hospital-acquired pneumonia Chest x-ray done yesterday showed worsening moderate interstitial edema. Patient had elevated WBC count and fever Blood culture have been negative sputum culture growing Pseudomonas is pansensitive Nasal MRSA screen is negative Continue meropenem but off of vancomycin ABG and chest x-ray reviewed. Vent settings changed to tidal volume 320 and rate to 15 Patient tolerated PSV 12/5 for few hours yesterday will treat try again today Continue bronchodilators Patient has baseline severe emphysema Continue Lasix Off continuos sedation (2) Septic shock: Code(s): A41.9 - Sepsis, unspecified organism; R65.21 - Severe sepsis with septic shock Status: Acute Assessment and Plan: Patient initially admitted with septic shock secondary to pneumonia and UTI and was treated with IV fluids and vasopressors Later she developed volume overload and was diuresed. She completed a course of meropenem Now she is back in ICU with septic shock secondary to hospital-acquired pneumonia versus urinary tract infection, ? Aspiration pneumonia -01/26: Blood cultures growing Staph hominis, 1 of 2 bottles -01/26: Urine cultures ESBL E coli -01/26: MRSA screen negative -01/27: Sputum cultures are ordered -01/29: Repeat blood cultures growing Staph capitis in 1/2 bottles -completed course of meropenem (02/05) -02/12 repeat urine and blood culture sent 10/24 will send sputum cultures, change Tam catheter, UA is growing budding yeast will add fluconazole IV Continue meropenem as patient has history of ESBL and fluconazole Cultures as above Off Levophed (3) Pneumonia: Qualifiers: Laterality: left Lung location: lower lobe of lung Pneumonia type: due to unspecified organism Qualified Code(s): J18.9 - Pneumonia, unspecified organism Code(s): J18.9 - Pneumonia, unspecified organism Status: Acute Assessment and Plan: See above (4) Urinary tract infection: Qualifiers: Hematuria presence: without hematuria Urinary tract infection type: site unspecified Qualified Code(s): N39.0 - Urinary tract infection, site not specified Code(s): N39.0 - Urinary tract infection, site not specified Status: Acute Assessment and Plan: See above (5) COPD (chronic obstructive pulmonary disease): Qualifiers: COPD type: unspecified COPD Qualified Code(s): J44.9 - Chronic obstructive pulmonary disease, unspecified Code(s): J44.9 - Chronic obstructive pulmonary disease, unspecified Status: Acute Assessment and Plan: History of COPD and emphysema, on home O2 -continue bronchodilators (6) Seizures: Code(s): R56.9 - Unspecified convulsions Status: Acute Assessment and Plan: Patient has a history of seizures -continue home Keppra per PEG tube (7) Essential hypertension: Code(s): I10 - Essential (primary) hypertension Status: Acute Assessment and Plan: History of essential hypertension, patient currently in septic shock, (8) GERD (gastro
[2023-02-16] MEDS: PANTOPRAZOLE SODIUM IV 40 MG VIAL IV PUSH ×2 (08:13→20:48)
[2023-02-16] MEDS: FUROSEMIDE INJ 40 MG/4 ML VIAL IV PUSH (08:24)
[2023-02-16] MEDS: INSULIN GLARGINE (*BKC) 100 UNITS/ML 15 UNITS SUB-Q (08:25)
--- NOTE | 2023-02-16 11:25 | PCNFU ---
Nutrition Follow-Up Complete: Inadequate Energy Intake as related to mechanical ventilation as evidenced by suboptimal tube feeding rate. Goal: Meet estimated nutritional needs - Meeting nutrition needs with TF at goal rate. Continue with same goal Pt current nutrition is Jevity 1.5 @ 55 ml/h. 150 ml flushes q 6 hours. Provides 1815 kcal, 77 g protein, 920 ml free water. 1520 ml total water Nutrition recommendation: Continue with same orders. Agree with orders Last recorded weight is 63.9 kg. Bowel Motility: + 1 BM 02/16/23 Labs Reviewed: Hgb 8.0, Hct 27.2, BUN 21, Cre 0.4 Meds Noted: No sedation. Keppra, Miralax, protonix Skin: WNL Additional Notes: Continues to tolerate tube feeding well. No sedation currently. Continue with same tube feeding orders with no changes. Will monitor weight, labs, skin, tube feeding tolerance every Sunday and Sunday.
--- NOTE | 2023-02-16 11:35 | P.PNIM_ITS ---
Progress Note: A&P Assessment and Plan (1) Acute respiratory failure with hypoxia and hypercapnia: Code(s): J96.01 - Acute respiratory failure with hypoxia; J96.02 - Acute respiratory failure with hypercapnia Status: Acute Assessment and Plan: Acute hypercapnic respiratory failure with pCO2 154 on the ABG on admission -patient was a DNR and comfort measures only was placed on Vapotherm. 01/27: ABGs in the morning showed a pH of 6.79 with unreadable pCO2 and a PO2 of 57, discussed with patient's daughter Starr and updated her with patient's condition, she requested that we do everything and intubated the patient and the daughter rescinded the DNR status. -01/27:? Intubated - 02/01 left thoracentesis and 500 mL of fluid was removed. -02/07:? Extubated - 02/08: Transfer out of ICU - 02/12 patient reintubated. Likely combination of pulmonary edema and a hospital-acquired pneumonia Chest x-ray done yesterday showed worsening moderate interstitial edema. Patient had elevated WBC count and fever Blood culture have been negative sputum culture growing Pseudomonas is pansensitive Nasal MRSA screen is negative Continue meropenem but off of vancomycin ABG and chest x-ray reviewed. Vent settings changed to tidal volume 320 and rate to 15 Patient tolerated PSV 12/5 for few hours yesterday will treat try again today Continue bronchodilators Patient has baseline severe emphysema Continue Lasix Off continuos sedation (2) Septic shock: Code(s): A41.9 - Sepsis, unspecified organism; R65.21 - Severe sepsis with septic shock Status: Acute Assessment and Plan: Patient initially admitted with septic shock secondary to pneumonia and UTI and was treated with IV fluids and vasopressors Later she developed volume overload and was diuresed. She completed a course of meropenem Now she is back in ICU with septic shock secondary to hospital-acquired pneumonia versus urinary tract infection, ? Aspiration pneumonia -01/26: Blood cultures growing Staph hominis, 1 of 2 bottles -01/26: Urine cultures ESBL E coli -01/26: MRSA screen negative -01/27: Sputum cultures are ordered -01/29: Repeat blood cultures growing Staph capitis in 1/2 bottles -completed course of meropenem (02/05) -02/12 repeat urine and blood culture sent 10/24 will send sputum cultures, change Tam catheter, UA is growing budding yeast will add fluconazole IV Continue meropenem as patient has history of ESBL and fluconazole Cultures as above Off Levophed (3) Pneumonia: Qualifiers: Laterality: left Lung location: lower lobe of lung Pneumonia type: due to unspecified organism Qualified Code(s): J18.9 - Pneumonia, unspecified organism Code(s): J18.9 - Pneumonia, unspecified organism Status: Acute Assessment and Plan: See above (4) Urinary tract infection: Qualifiers: Hematuria presence: without hematuria Urinary tract infection type: site unspecified Qualified Code(s): N39.0 - Urinary tract infection, site not specified Code(s): N39.0 - Urinary tract infection, site not specified Status: Acute Assessment and Plan: See above (5) COPD (chronic obstructive pulmonary disease): Qualifiers: COPD type: unspecified COPD Qualified Code(s): J44.9 - Chronic obstructive pulmonary disease, unspecified Code(s): J44.9 - Chronic obstructive pulmonary disease, unspecified Status: Acute Assessment and Plan: History of COPD and emphysema, on home O2 -continue bronchodilators (6) Seizures: Code(s): R56.9 - Unspecified c
[2023-02-16 11:58] LABS: Glucose Point of Care 143 mg/dl (65-105)
[2023-02-16] MEDS: CEFEPIME 2 GM/NS 50 ML 2 GM/50 ML BAG IVPB ×2 (13:42→20:50)
[2023-02-16 18:10] LABS: Glucose Point of Care 147 mg/dl (65-105)
[2023-02-16] MEDS: ACETAMINOPHEN ELIXIR 325 MG/10.15 ML UDC 650 MG PO (20:48)
[2023-02-16] MEDS: MINERAL OIL/WHITE PETROLATUM OINTMENT 1 APPLIC EACH EYE (20:49)
[2023-02-17] VITALS (26 sets, daily range): BP systolic 94–142; BP diastolic 65–90; PULSE 75–100; RESP 16–27; TEMP 36.7–37.1; O2SAT 93–99
[2023-02-17 01:26] LABS: Glucose Point of Care 116 mg/dl (65-105)
[2023-02-17] MEDS: CEFEPIME 2 GM/NS 50 ML 2 GM/50 ML BAG IVPB ×3 (05:32→20:46)
[2023-02-17] MEDS: CENTRAL LINE FLUSH 10 ML IV PUSH ×4 (05:33→20:47)
[2023-02-17 05:38] LABS: Alveolar/Arterial O2 Gradient 66.8 mmHg; Base Excess ABG 11.4 mEq/l (+/-2.0); Fractional Inspired Oxygen 30 %; HCO3 ABG 36.6 mEq/l (22.0-26.0); Oxygen Content ABG 12.1 %vol (16.0-22.0); Oxygen Saturation ABG 96.8 % (95.0-100.0); Oxyhemoglobin 94.9 % THb (90.0-100.0); PCO2 ABG 52.1 mmHg (35.0-45.0); PO2 ABG 85.9 mmHg (80.0-100.0); PO2 FiO2 Ratio Arterial Blood 2.86 %; pH ABG 7.464 (7.350-7.450)
[2023-02-17 05:39] LABS: Device VENTILATOR; Modified Allen's Test Pass; Site Drawn LEFT RADIAL
[2023-02-17 05:40] LABS: Arterial Blood Gas PEEP 5 cmH2O; Arterial Blood Gas Tidal Volume 320 ml; Arterial Blood Gas Vent Mode CMV; Arterial Blood Gas Ventilator rate 15 /MIN
[2023-02-17 06:32] LABS: Hematocrit 25.9 % (37.0-47.0); Hemoglobin 7.9 g/dL (12.0-15.0); Mean Corpuscular HGB Conc 30.5 g/dl (32-36); Mean Corpuscular Volume 98.5 fl (80-100); Mean Platelet Volume 9.1 fl (7.4-10.4); Platelet Count Result 220 k/mm3 (150-375); Red Blood Count 2.63 M/mm3 (4.2-5.4); Red Cell Distribution Width 16.9 % (11.5-14.5); White Blood Count 3.9 K/mm3 (4.5-10.0)
[2023-02-17 06:46] LABS: Alanine Aminotransferase 10 U/L (6-35); Albumin Level 3.5 g/dL (3.5-5.1); Alkaline Phosphatase 84 U/L (38-126); Anion Gap 3 mmol/L (8-16); Aspartate Amino Transferase 20 U/L (14-36); Bilirubin,Total 0.8 mg/dL (0.2-1.3); Blood Urea Nitrogen 26 mg/dL (7-17); Calcium 8.9 mg/dL (8.4-10.2); Carbon Dioxide 38 mmol/L (22-30); Chloride 100 mmol/L (98-107); Estimated CRCL calculation 72 ml/min; Estimated Glomerular Filt Rate > 60; Glucose 101 mg/dL (65-110); Magnesium 2.1 mg/dL (1.6-2.3); Potassium 3.9 mmol/L (3.4-5.0); Sodium 141 mmol/L (137-145)
[2023-02-17] MEDS: INSULIN GLARGINE (*BKC) 100 UNITS/ML 15 UNITS SUB-Q (08:18)
[2023-02-17] MEDS: ACIDOPHILUS/BULGARICUS CHEWABLE TABLET 1 TABLET PO (08:18)
[2023-02-17] MEDS: MINERAL OIL/WHITE PETROLATUM OINTMENT 1 APPLIC EACH EYE (08:18)
[2023-02-17] MEDS: levETIRAcetam 250 MG TABLET 750 MG PO ×2 (08:18→20:45)
[2023-02-17] MEDS: FUROSEMIDE INJ 40 MG/4 ML VIAL IV PUSH (08:18)
[2023-02-17] MEDS: FONDAPARINUX SODIUM 2.5 MG/0.5 ML SYRINGE SUB-Q (08:18)
[2023-02-17] MEDS: PANTOPRAZOLE SODIUM IV 40 MG VIAL IV PUSH ×2 (08:18→20:46)
[2023-02-17] MEDS: FLUCONAZOLE 100 MG TABLET 200 MG FEED TUBE (08:18)
--- NOTE | 2023-02-17 08:30 | WPDINTPN ---
Progress Note: A&P Assessment and Plan (1) Acute respiratory failure with hypoxia and hypercapnia: Code(s): J96.01 - Acute respiratory failure with hypoxia; J96.02 - Acute respiratory failure with hypercapnia Status: Acute Assessment and Plan: Acute hypercapnic respiratory failure with pCO2 154 on the ABG on admission -patient was a DNR and comfort measures only was placed on Vapotherm. 01/27: ABGs in the morning showed a pH of 6.79 with unreadable pCO2 and a PO2 of 57, discussed with patient's daughter Starr and updated her with patient's condition, she requested that we do everything and intubated the patient and the daughter rescinded the DNR status. -01/27:? Intubated - 02/01 left thoracentesis and 500 mL of fluid was removed. -02/07:? Extubated - 02/08: Transfer out of ICU - 02/12 patient reintubated. Likely combination of pulmonary edema and a hospital-acquired pneumonia Chest x-ray done yesterday showed worsening moderate interstitial edema. Patient had elevated WBC count and fever Blood culture have been negative sputum culture growing Pseudomonas is pansensitive Nasal MRSA screen is negative Continue meropenem but off of vancomycin ABG and chest x-ray reviewed. Vent settings changed to tidal volume 320 and rate to 15 Patient tolerated PSV 12/5 for few hours yesterday. Patient placed on PSV 8/5. If successful check an ABG to evaluate for extubation Continue bronchodilators Patient has baseline severe emphysema Continue Lasix Off continuos sedation (2) Septic shock: Code(s): A41.9 - Sepsis, unspecified organism; R65.21 - Severe sepsis with septic shock Status: Acute Assessment and Plan: Patient initially admitted with septic shock secondary to pneumonia and UTI and was treated with IV fluids and vasopressors Later she developed volume overload and was diuresed. She completed a course of meropenem Now she is back in ICU with septic shock secondary to hospital-acquired pneumonia versus urinary tract infection, ? Aspiration pneumonia -01/26: Blood cultures growing Staph hominis, 1 of 2 bottles -01/26: Urine cultures ESBL E coli -01/26: MRSA screen negative -01/27: Sputum cultures are ordered -01/29: Repeat blood cultures growing Staph capitis in 1/2 bottles -completed course of meropenem (02/05) -02/12 repeat urine and blood culture sent 02/13 will send sputum cultures is growing Pseudomonas, change Tam catheter, UA is growing budding yeast will add fluconazole IV 02/16 meropenem changed to cefepime Continue fluconazole Cultures as above Off Levophed (3) Pneumonia: Qualifiers: Laterality: left Lung location: lower lobe of lung Pneumonia type: due to unspecified organism Qualified Code(s): J18.9 - Pneumonia, unspecified organism Code(s): J18.9 - Pneumonia, unspecified organism Status: Acute Assessment and Plan: See above (4) Urinary tract infection: Qualifiers: Hematuria presence: without hematuria Urinary tract infection type: site unspecified Qualified Code(s): N39.0 - Urinary tract infection, site not specified Code(s): N39.0 - Urinary tract infection, site not specified Status: Acute Assessment and Plan: See above (5) COPD (chronic obstructive pulmonary disease): Qualifiers: COPD type: unspecified COPD Qualified Code(s): J44.9 - Chronic obstructive pulmonary disease, unspecified Code(s): J44.9 - Chronic obstructive pulmonary disease, unspecified Status: Acute Assessment and Plan: History of COPD and emphysema, on home O2 -continue bronchodilators (6) Seizures: Code(s): R56.9 - Unspecified convulsions Status: Acute Assessment and Plan: Patient has a history of seizures -continue home Keppra per PEG tube (7) Essential hypertension: Code(s): I10 - Essential (primary) hypertension Status: Acute Assessment and Plan: History of essent
[2023-02-17 08:54] LABS: Base Excess ABG 7.7 mEq/l (+/-2.0); Carboxyhemoglobin 0.3 % THb (0-2.0); Fractional Inspired Oxygen 30 %; HCO3 ABG 32.3 mEq/l (22.0-26.0); Methemoglobin ABG 0.3 %THb (0-1.5); Oxygen Content ABG 12.9 %vol (16.0-22.0); Oxygen Saturation ABG 97.4 % (95.0-100.0); Oxyhemoglobin 95.3 % THb (90.0-100.0); PCO2 ABG 45.9 mmHg (35.0-45.0); PO2 FiO2 Ratio Arterial Blood 3.07 %; Reduced Hemoglobin 4.1 %THb (0-5.0); Total Hemoglobin 9.5 g/dL (12.0-18.0); pH ABG 7.465 (7.350-7.450)
[2023-02-17 08:55] LABS: Device VENTILATOR; Site Drawn RIGHT BRACHIAL
[2023-02-17 08:57] LABS: Arterial Blood Gas PEEP 5 cmH2O; Arterial Blood Gas Pressure Support 8 cmH2O; Arterial Blood Gas Vent Mode SPONTANEOUS
[2023-02-17 10:18] LABS: Iron 33 ug/dL (37-170)
[2023-02-17 10:28] LABS: Percent Iron Saturation 12 % (20-50)
[2023-02-17 11:57] LABS: Glucose Point of Care 100 mg/dl (65-105)
--- NOTE | 2023-02-17 13:21 | PM.IMPN ---
Progress Note: A&P Assessment and Plan (1) Acute respiratory failure with hypoxia and hypercapnia: Code(s): J96.01 - Acute respiratory failure with hypoxia; J96.02 - Acute respiratory failure with hypercapnia Status: Acute Assessment and Plan: Acute hypercapnic respiratory failure with pCO2 154 on the ABG on admission -patient was a DNR and comfort measures only was placed on Vapotherm. 01/27: ABGs in the morning showed a pH of 6.79 with unreadable pCO2 and a PO2 of 57, discussed with patient's daughter Starr and updated her with patient's condition, she requested that we do everything and intubated the patient and the daughter rescinded the DNR status. -01/27:? Intubated - 02/01 left thoracentesis and 500 mL of fluid was removed. -02/07:? Extubated - 02/08: Transfer out of ICU - 02/12 patient reintubated. Likely combination of pulmonary edema and a hospital-acquired pneumonia Chest x-ray done yesterday showed worsening moderate interstitial edema. Patient had elevated WBC count and fever Blood culture have been negative sputum culture growing Pseudomonas is pansensitive Nasal MRSA screen is negative s/p Vanc and Meropenem sputum culture positive pseudomonas and started on Cefepime extubated 02/17 Continue bronchodilators Patient has baseline severe emphysema Continue Lasix Off continuos sedation (2) Septic shock: Code(s): A41.9 - Sepsis, unspecified organism; R65.21 - Severe sepsis with septic shock Status: Acute Assessment and Plan: Patient initially admitted with septic shock secondary to pneumonia and UTI and was treated with IV fluids and vasopressors Later she developed volume overload and was diuresed. She completed a course of meropenem Now she is back in ICU with septic shock secondary to hospital-acquired pneumonia versus urinary tract infection, ? Aspiration pneumonia -01/26: Blood cultures growing Staph hominis, 1 of 2 bottles -01/26: Urine cultures ESBL E coli -01/26: MRSA screen negative -01/27: Sputum cultures are ordered -01/29: Repeat blood cultures growing Staph capitis in 1/2 bottles -completed course of meropenem (02/05) -02/12 repeat urine and blood culture sent 02/13 will send sputum cultures is growing Pseudomonas, change Tam catheter, UA is growing budding yeast will add fluconazole IV 02/16 meropenem changed to cefepime Continue fluconazole sputum culture positive for pansensitive Pseudomonas Off Levophed (3) Pneumonia: Qualifiers: Laterality: left Lung location: lower lobe of lung Pneumonia type: due to unspecified organism Qualified Code(s): J18.9 - Pneumonia, unspecified organism Code(s): J18.9 - Pneumonia, unspecified organism Status: Acute Assessment and Plan: See above (4) Urinary tract infection: Qualifiers: Hematuria presence: without hematuria Urinary tract infection type: site unspecified Qualified Code(s): N39.0 - Urinary tract infection, site not specified Code(s): N39.0 - Urinary tract infection, site not specified Status: Acute Assessment and Plan: See above (5) COPD (chronic obstructive pulmonary disease): Qualifiers: COPD type: unspecified COPD Qualified Code(s): J44.9 - Chronic obstructive pulmonary disease, unspecified Code(s): J44.9 - Chronic obstructive pulmonary disease, unspecified Status: Acute Assessment and Plan: History of COPD and emphysema, on home O2 -continue bronchodilators (6) Seizures: Code(s): R56.9 - Unspecified convulsions Status: Acute Assessment and Plan: Patient has a history of seizures -continue home Keppra per PEG tube (7) Essential hypertension: Code(s): I10 - Essential (primary) hypertension Status: Acute Assessment and Plan: History of essential hypertension, patient currently in septic shock, (8) GERD (gastroesophageal reflux disease): Code(s): K21.9 -
[2023-02-17 17:35] LABS: Glucose Point of Care 112 mg/dl (65-105)
--- NOTE | 2023-02-17 23:06 | PCRCNOTE ---
Pt refused BIPAP at this time. Says she can't breathe with it on .
[2023-02-18] VITALS (16 sets, daily range): BP systolic 126–154; BP diastolic 65–95; PULSE 78–98; RESP 20–32; TEMP 36.3–36.8; O2SAT 93–100
[2023-02-18 01:37] LABS: Glucose Point of Care 141 mg/dl (65-105)
[2023-02-18 04:58] LABS: Basophils Percent Auto 0.9 % (0.2-1.2); Eosinophils Absolute Auto 0.3 K/mm3 (0-0.3); Eosinophils Percent Auto 7.7 % (0-4.4); Hemoglobin 8.2 g/dL (12.0-15.0); Lymphocytes Absolute Auto 0.86 K/mm3 (0.9-3.2); Lymphocytes Percent Auto 25.4 % (18.3-44.2); Mean Corpuscular HGB Conc 29.3 g/dl (32-36); Mean Corpuscular Hemoglobin 29.3 pg (26-34); Mean Platelet Volume 9.4 fl (7.4-10.4); Monocytes Absolute Auto 0.5 K/mm3 (0.1-0.6); Monocytes Percent Auto 14.7 % (2.6-8.5); Neutrophils Absolute Auto 1.7 K/mm3 (1.3-6.7); Neutrophils Percent Auto 51.3 % (45.5-73.1); Platelet Count Result 235 k/mm3 (150-375); Red Cell Distribution Width 16.1 % (11.5-14.5); White Blood Count 3.4 K/mm3 (4.5-10.0)
[2023-02-18 05:10] LABS: Alanine Aminotransferase 10 U/L (6-35); Albumin Level 3.6 g/dL (3.5-5.1); Alkaline Phosphatase 99 U/L (38-126); Anion Gap 3 mmol/L (8-16); Aspartate Amino Transferase 19 U/L (14-36); Bilirubin,Total 0.7 mg/dL (0.2-1.3); Blood Urea Nitrogen 26 mg/dL (7-17); Calcium 8.9 mg/dL (8.4-10.2); Carbon Dioxide 39 mmol/L (22-30); Chloride 97 mmol/L (98-107); Estimated CRCL calculation 88 ml/min; Estimated Glomerular Filt Rate > 60; Glucose 134 mg/dL (65-110); Magnesium 2.3 mg/dL (1.6-2.3); Potassium 4.1 mmol/L (3.4-5.0); Sodium 139 mmol/L (137-145)
[2023-02-18 05:12] LABS: Lactic Acid Reflex 0.8 mmol/L (0.7-2.0)
[2023-02-18 05:20] LABS: Platelet Estimate Adequate (Adequate); Schistocytes None Seen (NORMAL)
[2023-02-18 05:21] LABS: Hypochromasia 1+ (NORMAL)
[2023-02-18] MEDS: CEFEPIME 2 GM/NS 50 ML 2 GM/50 ML BAG IVPB ×3 (06:32→22:05)
[2023-02-18] MEDS: CENTRAL LINE FLUSH 10 ML IV PUSH ×3 (06:33→22:06)
[2023-02-18 09:03] LABS: Glucose Point of Care 127 mg/dl (65-105)
[2023-02-18] MEDS: levETIRAcetam 250 MG TABLET 750 MG PO ×2 (09:05→22:03)
[2023-02-18] MEDS: ACIDOPHILUS/BULGARICUS CHEWABLE TABLET 1 TABLET PO (09:05)
[2023-02-18] MEDS: FLUCONAZOLE 100 MG TABLET 200 MG FEED TUBE (09:06)
[2023-02-18] MEDS: PANTOPRAZOLE SODIUM IV 40 MG VIAL IV PUSH ×2 (09:07→22:05)
[2023-02-18] MEDS: INSULIN GLARGINE (*BKC) 100 UNITS/ML 15 UNITS SUB-Q (09:07)
[2023-02-18] MEDS: FONDAPARINUX SODIUM 2.5 MG/0.5 ML SYRINGE SUB-Q (09:09)
--- NOTE | 2023-02-18 09:29 | WPDINTPN ---
Progress Note: A&P Assessment and Plan (1) Acute respiratory failure with hypoxia and hypercapnia: Code(s): J96.01 - Acute respiratory failure with hypoxia; J96.02 - Acute respiratory failure with hypercapnia Status: Acute Assessment and Plan: Acute hypercapnic respiratory failure with pCO2 154 on the ABG on admission -patient was a DNR and comfort measures only was placed on Vapotherm. 01/27: ABGs in the morning showed a pH of 6.79 with unreadable pCO2 and a PO2 of 57, discussed with patient's daughter Starr and updated her with patient's condition, she requested that we do everything and intubated the patient and the daughter rescinded the DNR status. -01/27:? Intubated - 02/01 left thoracentesis and 500 mL of fluid was removed. -02/07:? Extubated - 02/08: Transfer out of ICU - 02/12 patient reintubated. Likely combination of pulmonary edema and a hospital-acquired pneumonia Chest x-ray done yesterday showed worsening moderate interstitial edema. Patient had elevated WBC count and fever Blood culture have been negative sputum culture growing Pseudomonas is pansensitive Nasal MRSA screen is negative Continue meropenem but off of vancomycin ABG and chest x-ray reviewed. Vent settings changed to tidal volume 320 and rate to 15 Patient tolerated PSV 12/5 for few hours yesterday. Patient placed on PSV 8/5. If successful check an ABG to evaluate for extubation 02/17 extubated after a successful weaning trial. BiPAP ordered p.r.n. and at night 02/18 refused to wear BiPAP overnight. On nasal cannula. No respiratory distress. Discussed with the patient. Continue bronchodilators Patient has baseline severe emphysema Continue Lasix Incentive spirometry (2) Septic shock: Code(s): A41.9 - Sepsis, unspecified organism; R65.21 - Severe sepsis with septic shock Status: Acute Assessment and Plan: Patient initially admitted with septic shock secondary to pneumonia and UTI and was treated with IV fluids and vasopressors Later she developed volume overload and was diuresed. She completed a course of meropenem Now she is back in ICU with septic shock secondary to hospital-acquired pneumonia versus urinary tract infection, ? Aspiration pneumonia -01/26: Blood cultures growing Staph hominis, 1 of 2 bottles -01/26: Urine cultures ESBL E coli -01/26: MRSA screen negative -01/27: Sputum cultures are ordered -01/29: Repeat blood cultures growing Staph capitis in 1/2 bottles -completed course of meropenem (02/05) -02/12 repeat urine and blood culture sent 02/13 will send sputum cultures is growing Pseudomonas, change Tam catheter, UA is growing budding yeast will add fluconazole IV 02/16 meropenem changed to cefepime Continue fluconazole Cultures as above Off Levophed (3) Pneumonia: Qualifiers: Laterality: left Lung location: lower lobe of lung Pneumonia type: due to unspecified organism Qualified Code(s): J18.9 - Pneumonia, unspecified organism Code(s): J18.9 - Pneumonia, unspecified organism Status: Acute Assessment and Plan: See above (4) Urinary tract infection: Qualifiers: Hematuria presence: without hematuria Urinary tract infection type: site unspecified Qualified Code(s): N39.0 - Urinary tract infection, site not specified Code(s): N39.0 - Urinary tract infection, site not specified Status: Acute Assessment and Plan: See above (5) COPD (chronic obstructive pulmonary disease): Qualifiers: COPD type: unspecified COPD Qualified Code(s): J44.9 - Chronic obstructive pulmonary disease, unspecified Code(s): J44.9 - Chronic obstructive pulmonary disease, unspecified Status: Acute Assessment and Plan: History of COPD and emphysema, on home O2 -continue bronchodilators (6) Seizures: Code(s): R56.9 - Unspecified convulsions Status: Acute Assessment and Plan: Patient has a history of s
[2023-02-18 12:17] LABS: Glucose Point of Care 87 mg/dl (65-105)
--- NOTE | 2023-02-18 12:20 | PC.NURSE ---
This patient, Gabriela Aguayo, was transferred to [facility][note 3] via bed without issue on 02/18/23 at 1205. Personal belongings sent with patient. Report given to JANUARY Soto. Appropriate documentation sent with patient.
[2023-02-18 12:37] LABS: Glucose Point of Care 80 mg/dl (65-105)
--- NOTE | 2023-02-18 15:23 | PM.IMPN ---
Progress Note: A&P Assessment and Plan (1) Acute respiratory failure with hypoxia and hypercapnia: Code(s): J96.01 - Acute respiratory failure with hypoxia; J96.02 - Acute respiratory failure with hypercapnia Status: Acute Assessment and Plan: Acute hypercapnic respiratory failure with pCO2 154 on the ABG on admission -patient was a DNR and comfort measures only was placed on Vapotherm. 01/27: ABGs in the morning showed a pH of 6.79 with unreadable pCO2 and a PO2 of 57, discussed with patient's daughter Starr and updated her with patient's condition, she requested that we do everything and intubated the patient and the daughter rescinded the DNR status. -01/27:? Intubated - 02/01 left thoracentesis and 500 mL of fluid was removed. -02/07:? Extubated - 02/08: Transfer out of ICU - 02/12 patient reintubated. Likely combination of pulmonary edema and a hospital-acquired pneumonia Chest x-ray done yesterday showed worsening moderate interstitial edema. Patient had elevated WBC count and fever Blood culture have been negative sputum culture growing Pseudomonas is pansensitive Nasal MRSA screen is negative Continue meropenem but off of vancomycin ABG and chest x-ray reviewed. Vent settings changed to tidal volume 320 and rate to 15 Patient tolerated PSV 12/5 for few hours yesterday. Patient placed on PSV 8/5. If successful check an ABG to evaluate for extubation 02/17 extubated after a successful weaning trial. BiPAP ordered p.r.n. and at night 02/18 refused to wear BiPAP overnight. On nasal cannula. No respiratory distress. Discussed with the patient. Continue bronchodilators Patient has baseline severe emphysema Continue Lasix Incentive spirometry (2) Septic shock: Code(s): A41.9 - Sepsis, unspecified organism; R65.21 - Severe sepsis with septic shock Status: Acute Assessment and Plan: Patient initially admitted with septic shock secondary to pneumonia and UTI and was treated with IV fluids and vasopressors Later she developed volume overload and was diuresed. She completed a course of meropenem Now she is back in ICU with septic shock secondary to hospital-acquired pneumonia versus urinary tract infection, ? Aspiration pneumonia -01/26: Blood cultures growing Staph hominis, 1 of 2 bottles -01/26: Urine cultures ESBL E coli -01/26: MRSA screen negative -01/27: Sputum cultures are ordered -01/29: Repeat blood cultures growing Staph capitis in 1/2 bottles -completed course of meropenem (02/05) -02/12 repeat urine and blood culture sent 02/13 will send sputum cultures is growing Pseudomonas, change Tam catheter, UA is growing budding yeast will add fluconazole Sputum culture positive for Pseudomonas and pansensitive Patient was on Meropenem from to and then switched to Cefepime after sensitive result thus has been on 5 days total of Abx, continue Cefepime until 02/20 Continue fluconazole x 14 days stop Date is 02/26 monitor PT/OT for discharge planning (3) Pneumonia: Qualifiers: Laterality: left Lung location: lower lobe of lung Pneumonia type: due to unspecified organism Qualified Code(s): J18.9 - Pneumonia, unspecified organism Code(s): J18.9 - Pneumonia, unspecified organism Status: Acute Assessment and Plan: See above (4) Urinary tract infection: Qualifiers: Hematuria presence: without hematuria Urinary tract infection type: site unspecified Qualified Code(s): N39.0 - Urinary tract infection, site not specified Code(s): N39.0 - Urinary tract infection, site not specified Status: Acute Assessment and Plan: See above (5) COPD (chronic obstructive pulmonary disease): Qualifiers: COPD type: unspecified COPD Qualified Code(s): J44.9 - Chronic obstructive pulmonary disease, unspecified Code(s): J44.9 - Chronic obstructive pulmonary disease, unspecified Status: Acute Assessment an
--- NOTE | 2023-02-18 17:08 | PCOTNOTE ---
OT evaluation re-ordered, per previous order cancellation Per daughter, pt is bedbound and dependent at baseline, with full assistance at long term where she resides. , hospitalist Dr. Simpson informed and aware, nursing aware. OT evaluation to be cancelled.
[2023-02-18 18:26] LABS: Glucose Point of Care 126 mg/dl (65-105)
[2023-02-18] MEDS: METOPROLOL TARTRATE 25 MG TABLET PO (22:03)
[2023-02-18 22:35] LABS: IFOB Positive Control Positive; Immunochemical Fecal Occult Bl Negative (N)
[2023-02-19] VITALS (19 sets, daily range): BP systolic 134–152; BP diastolic 71–87; PULSE 79–96; RESP 18–34; TEMP 36.1–37; O2SAT 81–99
[2023-02-19 01:01] LABS: Glucose Point of Care 114 mg/dl (65-105)
[2023-02-19 06:13] LABS: Glucose Point of Care 108 mg/dl (65-105)
[2023-02-19] MEDS: CEFEPIME 2 GM/NS 50 ML 2 GM/50 ML BAG IVPB ×3 (06:32→21:49)
[2023-02-19] MEDS: CENTRAL LINE FLUSH 10 ML IV PUSH ×4 (06:33→21:40)
--- NOTE | 2023-02-19 07:07 | PCPTNOTE ---
Per OT note 02/18/23: Hospitalist aware of pt being at baseline. PT orders discharged this date.
--- NOTE | 2023-02-19 08:02 | PM.IMPN ---
Progress Note: A&P Assessment and Plan (1) Acute respiratory failure with hypoxia and hypercapnia: Code(s): J96.01 - Acute respiratory failure with hypoxia; J96.02 - Acute respiratory failure with hypercapnia Status: Acute Assessment and Plan: (1) Acute respiratory failure with hypoxia and hypercapnia: ?Code(s): J96.01 - Acute respiratory failure with hypoxia; J96.02 - Acute respiratory failure with hypercapnia ?Status:?Acute ?Assessment and Plan: Acute hypercapnic respiratory failure with pCO2 154 on the ABG on admission -patient was a DNR and comfort measures only was placed on Vapotherm. 01/27:? ABGs in the morning showed a pH of 6.79 with unreadable pCO2 and a PO2 of 57, discussed with patient's daughter Starr and updated her with patient's condition, she requested that we do everything and intubated the patient and the daughter rescinded the DNR status. -01/27:? Intubated - 02/01 left thoracentesis and 500 mL of fluid was removed. -02/07:? Extubated - 02/08:? Transfer out of ICU - 02/12 patient reintubated.? Likely combination of pulmonary edema and a hospital-acquired pneumonia Chest x-ray done yesterday showed worsening moderate interstitial edema.? Patient had elevated WBC count and fever Blood culture have been negative sputum culture growing Pseudomonas is pansensitive Nasal MRSA screen is negative Continue meropenem but off of vancomycin ABG and chest x-ray reviewed.? Vent settings changed to tidal volume 320 and rate to 15 Patient tolerated PSV 12/5 for few hours yesterday.? Patient placed on PSV 8/5.? If successful check an ABG to evaluate for extubation 02/17 extubated after a successful weaning trial.? BiPAP ordered p.r.n. and at night 02/18 refused to wear BiPAP overnight.? On nasal cannula.? No respiratory distress.? Discussed with the patient. Continue bronchodilators Patient?has baseline severe emphysema Continue Lasix Incentive spirometry (2) Septic shock: ?Code(s): A41.9 - Sepsis, from pseudomonas, no longer in septic shock ?Status:?Acute ?Assessment and Plan: Patient initially admitted with septic shock secondary to pneumonia and UTI and was treated with IV fluids and vasopressors Later she developed volume overload and was diuresed.? She completed a course of meropenem Now she is back in ICU with septic shock secondary to hospital-acquired pneumonia versus urinary tract infection, ?? Aspiration pneumonia -01/26:? Blood cultures growing Staph hominis, 1 of 2 bottles -01/26:? Urine cultures ESBL E coli -01/26:? MRSA screen negative -01/27:? Sputum cultures are ordered -01/29:? Repeat blood cultures growing Staph capitis in 1/2 bottles -completed course of meropenem (02/05) -02/12 repeat urine and blood culture sent 02/13 will send sputum cultures is growing Pseudomonas, change Tam catheter, UA is growing budding yeast will add fluconazole Sputum culture positive for Pseudomonas and pansensitive Patient was on Meropenem from to and then switched to Cefepime after sensitive result thus has been on 5 days total of Abx, continue Cefepime until 02/20 Continue fluconazole x 14 days stop Date is 02/26 monitor PT/OT for discharge planning 02/19: Pt no longer septic. cefepime finishes 02/20. PT/OT to see where her disposition is. Plan for DC tomorrow. PT on TF at baseline. High risk for aspiration. Aspiration precautions very important. Does not wear BIPAP for COPD- noncompliant. On NC 1L O2 with an O2 of 96%. Risk of decompensating, however daughter adamant pt should be on O2. (2) Pneumonia: Qualifiers: Laterality: left Lung location: lower lobe of lung Pneumonia type: due to unspecified organism Qualified Code(s): J18.9 - Pneumonia, unspecified organism Code(s): J18.9 - Pneumonia, unspecified organism Status: Acute Assessment and Plan: see above (3) Urinary tract infection: Qualifiers: Hematuria presence: without hematuria Urina
[2023-02-19] MEDS: METOPROLOL TARTRATE 25 MG TABLET PO ×2 (08:30→21:38)
[2023-02-19] MEDS: ACIDOPHILUS/BULGARICUS CHEWABLE TABLET 1 TABLET PO (08:30)
[2023-02-19] MEDS: LOSARTAN POTASSIUM 50 MG TABLET PO (08:30)
[2023-02-19] MEDS: FLUCONAZOLE 100 MG TABLET 200 MG FEED TUBE (08:31)
[2023-02-19] MEDS: INSULIN GLARGINE (*BKC) 100 UNITS/ML 15 UNITS SUB-Q (08:31)
[2023-02-19] MEDS: levETIRAcetam 250 MG TABLET 750 MG PO ×2 (08:31→21:38)
[2023-02-19] MEDS: FONDAPARINUX SODIUM 2.5 MG/0.5 ML SYRINGE SUB-Q (08:31)
[2023-02-19 08:32] LABS: Alveolar/Arterial O2 Gradient 14.8 mmHg; Base Excess ABG 8.7 mEq/l (+/-2.0); Fractional Inspired Oxygen 22 %; HCO3 ABG 34.5 mEq/l (22.0-26.0); Oxygen Content ABG 12.6 %vol (16.0-22.0); Oxygen Saturation ABG 95.2 % (95.0-100.0); Oxyhemoglobin 92.8 % THb (90.0-100.0); PCO2 ABG 54.9 mmHg (35.0-45.0); PO2 ABG 76.5 mmHg (80.0-100.0); PO2 FiO2 Ratio Arterial Blood 3.48 %; Total Hemoglobin 9.6 g/dL (12.0-18.0); pH ABG 7.416 (7.350-7.450)
[2023-02-19 08:33] LABS: Device NASAL CANNULA; Liters per Minute 0.5 LPM; Modified Allen's Test Pass; Site Drawn LEFT RADIAL
[2023-02-19 08:37] LABS: Basophils Percent Auto 0.7 % (0.2-1.2); Eosinophils Absolute Auto 0.2 K/mm3 (0-0.3); Eosinophils Percent Auto 7.8 % (0-4.4); Hematocrit 27.5 % (37.0-47.0); Hemoglobin 8.1 g/dL (12.0-15.0); Immature Granulocyte Absolute 0.01 K/mm3 (0.00-0.031); Immature Granulocyte Percent A 0.3 % (0-0.5); Lymphocytes Absolute Auto 0.82 K/mm3 (0.9-3.2); Mean Corpuscular HGB Conc 29.5 g/dl (32-36); Mean Corpuscular Hemoglobin 29.5 pg (26-34); Mean Platelet Volume 9.6 fl (7.4-10.4); Monocytes Absolute Auto 0.5 K/mm3 (0.1-0.6); Monocytes Percent Auto 15.4 % (2.6-8.5); Neutrophils Absolute Auto 1.4 K/mm3 (1.3-6.7); Neutrophils Percent Auto 47.8 % (45.5-73.1); Platelet Count Result 246 k/mm3 (150-375); Red Blood Count 2.75 M/mm3 (4.2-5.4); Red Cell Distribution Width 16.1 % (11.5-14.5); White Blood Count 2.9 K/mm3 (4.5-10.0)
[2023-02-19 08:53] LABS: Anisocytosis 1+ (NORMAL); Hypochromasia 1+ (NORMAL); Platelet Estimate Adequate (Adequate); Schistocytes None Seen (NORMAL)
[2023-02-19 09:05] LABS: Anion Gap 4 mmol/L (8-16); Blood Urea Nitrogen 22 mg/dL (7-17); Calcium 8.8 mg/dL (8.4-10.2); Carbon Dioxide 37 mmol/L (22-30); Chloride 98 mmol/L (98-107); Estimated CRCL calculation 88 ml/min; Estimated Glomerular Filt Rate > 60; Glucose 135 mg/dL (65-110); Potassium 4.3 mmol/L (3.4-5.0); Sodium 139 mmol/L (137-145)
[2023-02-19 09:14] LABS: NT Pro B Type Natriuretic Pept 353 pg/mL (19.9-100)
[2023-02-19] MEDS: LANSOPRAZOLE ORAL SUSP 30 MG/10 ML ORAL.SUSP FEED TUBE ×2 (09:21→18:35)
--- NOTE | 2023-02-19 09:38 | PCSTNOTE ---
Therapist consulted with Dr. Wood prior to seeing patient to learn of patient's condition and Dr. Wood requested to discharge ST order at this time due to patient's current condition.
--- NOTE | 2023-02-19 12:03 | PC.NURSE ---
Addendum entered by Chelo Carballo RN 02/19/23 12:06: GRACE Kelly/dtana maria, notified of pt being moved to room 315 Original Note: This patient, Gabriela Aguayo, was transferred to [ 315] on 02/19/23 at 1155. Personal belongings sent with patient. Report given to [ JANUARY Davila @ [id number]]. Appropriate documentation sent with patient. Family updated with move of pt
--- NOTE | 2023-02-19 12:47 | PDONCCN ---
HPI - Date of Consult Date/Time: 02/19/23 12:47 Requesting Physician: Wagner Vogel MD Primary Care Provider: Luisito Sher MD - Consult Narrative Reason for consult: Anemia and leukopenia Narrative: Gabriela Aguayo is a 77 year old female admitted to the hospital with acute respiratory failure. Patient was recently transferred out of the ICU. She was intubated due to acute respiratory failure and had thoracentesis done with 500 cc of fluid removed. She was diagnosed with combination of hospital-acquired pneumonia and pulmonary edema. Patient has a history of baseline severe emphysema. CBC now showed WBC of 2.9 which was normal just last week. Hemoglobin dropped to 8.1 on admission it was 11.3 but slowly declining. She denies any bleeding and bruising. Patient is not totally alert and seems to be slightly confused. Other labs showed normal kidney function. Iron was slightly low at 33 with iron saturation of 12%. Patient received iron infusion. LDH was normal at 204. Patient also has history of seizure disorder and currently on Keppra per PEG tube. Review of Systems - Review of Systems All systems reviewed & are unremarkable except as noted in HPI and [facility] Medical History: Medical History (Last Updated 01/27/23 @ 01:02 by Wagner Vogel MD) Acute hypercapnic respiratory failure DNR (do not resuscitate) Essential hypertension Pneumonia Seizures - Social History Social History: Social History (Last Reviewed 01/27/23 @ 00:56 by Wagner Vogel MD) Alcohol Use: Alcohol intake: unknown Substance Use: Substance use: unknown Others: Spiritual care concerns: No Smoking Status: Smoking status: Unknown if ever smoked Exam - Vital Signs Vital Signs - 24 hr 02/18/23 16:00 02/18/23 14:00 02/18/23 16:00 Temperature Pulse Rate 96 87 Respiratory Rate Blood Pressure Pulse Oximetry 98 Oxygen Delivery Nasal Cannula Oxygen Flow Rate 1 02/18/23 16:00 02/18/23 18:00 02/18/23 20:00 Temperature 36.3 C L 36.6 C Pulse Rate 86 91 90 Respiratory Rate 32 H 22 H Blood Pressure 144/89 H 149/84 H Pulse Oximetry 98 99 Oxygen Delivery Oxygen Flow Rate 02/18/23 22:03 02/18/23 23:14 02/18/23 23:54 Temperature 36.8 C Pulse Rate 90 82 Respiratory Rate 24 H Blood Pressure 126/65 Pulse Oximetry 99 98 Oxygen Delivery Oxygen Flow Rate 1 02/18/23 20:00 02/19/23 00:00 02/19/23 03:38 Temperature 37.0 C Pulse Rate 87 Respiratory Rate 20 Blood Pressure 134/71 Pulse Oximetry 99 98 96 Oxygen Delivery Nasal Cannula Nasal Cannula Oxygen Flow Rate 1 1 02/18/23 20:00 02/18/23 22:00 02/19/23 00:00 Temperature Pulse Rate 98 92 79 Respiratory Rate Blood Pressure Pulse Oximetry Oxygen Delivery Oxygen Flow Rate 02/19/23 02:00 02/19/23 04:00 02/19/23 06:00 Temperature Pulse Rate 85 83 86 Respiratory Rate Blood Pressure Pulse Oximetry Oxygen Delivery Oxygen Flow Rate 02/19/23 04:00 02/19/23 08:00 02/19/23 08:30 Temperature 36.4 C Pulse Rate 90 90 Respiratory Rate 18 Blood Pressure 146/73 H Pulse Oximetry 96 98 Oxygen Delivery Nasal Cannula Oxygen Flow Rate 1 02/19/23 08:00 02/19/23 08:00 02/19/23 08:00 Temperature 36.1 C L Pulse Rate 93 91 Respiratory Rate 28 H Blood Pressure 150/87 H Pulse Oximetry 92 92 Oxygen Delivery Room Air Oxygen Flow Rate - Exam HEENT: EOMI, PERRLA, mucous membranes moist and pink Neck: supple Lungs: clear to auscultation, normal air movement Heart: no murmurs, gallops, or rubs, regular rhythm, regular rate Abdomen: abdomen soft, non-distended, normal bowel sounds Extremities: normal pulses Integumentary: no abnormalities Neurological: normal speech Psychological: confused - Lab Results Laboratory Last Values WBC 2.9 K/mm3 (4.5-10.0) L 02/19/23 08:27 RBC 2.75 M/mm3 (4.2-5.4) L 02/19/23 08
--- NOTE | 2023-02-19 13:01 | PCPTNOTE ---
Spoke with Dr. Majano regarding pt condition (dependent at baseline) and family declining acute care therapy during this hospital admission on 02/09/23 - OK was given to discharge therapy orders.
[2023-02-19 13:02] LABS: Glucose Point of Care 117 mg/dl (65-105)
[2023-02-19 14:43] LABS: Folic Acid 7.2 ng/mL (2.76->20); Vitamin B12 > 1000.0 pg/mL (239-931)
[2023-02-19 18:42] LABS: Glucose Point of Care 114 mg/dl (65-105)
[2023-02-19 18:44] LABS: Iron 98 ug/dL (37-170)
[2023-02-19 18:57] LABS: Percent Iron Saturation 35 % (20-50)
[2023-02-19] MEDS: ACETAMINOPHEN ELIXIR 325 MG/10.15 ML UDC 650 MG PO (21:53)
[2023-02-20] VITALS (7 sets, daily range): BP systolic 144–150; BP diastolic 78–81; PULSE 68–79; RESP 18–24; TEMP 36.2; O2SAT 98–100
[2023-02-20 00:05] LABS: Glucose Point of Care 104 mg/dl (65-105)
[2023-02-20] MEDS: CENTRAL LINE FLUSH 10 ML IV PUSH ×3 (05:47→17:49)
[2023-02-20 06:15] LABS: Glucose Point of Care 60 mg/dl (65-105)
[2023-02-20] MEDS: DEXTROSE 50% 25 GM/50 ML SYRINGE IV PUSH (06:51)
[2023-02-20 07:49] LABS: Glucose Point of Care 75 mg/dl (65-105)
--- NOTE | 2023-02-20 08:11 | PC.NURSE ---
This RN called the hospitalist caring for the pt. Notified him of the current blood glucose changes. Latest blood glucose reading of 75. Hospitalist orders the lantus be held for now, recheck BG mid day, if levels go up 7 units lantus can be given.
[2023-02-20] MEDS: levETIRAcetam 250 MG TABLET 750 MG PO (09:44)
[2023-02-20] MEDS: ACIDOPHILUS/BULGARICUS CHEWABLE TABLET 1 TABLET PO (09:44)
[2023-02-20] MEDS: METOPROLOL TARTRATE 25 MG TABLET PO (09:45)
[2023-02-20] MEDS: LOSARTAN POTASSIUM 50 MG TABLET PO (09:47)
[2023-02-20] MEDS: FLUCONAZOLE 100 MG TABLET 200 MG FEED TUBE (09:47)
[2023-02-20] MEDS: LANSOPRAZOLE ORAL SUSP 30 MG/10 ML ORAL.SUSP FEED TUBE ×2 (09:52→17:36)
[2023-02-20] MEDS: FONDAPARINUX SODIUM 2.5 MG/0.5 ML SYRINGE SUB-Q (09:52)
--- NOTE | 2023-02-20 11:57 | PCNFU ---
Nutrition Follow-Up Complete: Inadequate Energy Intake as related to mechanical ventilation as evidenced by suboptimal tube feeding rate. Goal: Meet estimated nutritional needs. Pt current nutrition is on Jevity 1.5 @ 55ml/hr with 150ml flushes q 6 hours. Provides 1815 kcal, 77 g protein, 920 ml free water. 1520 ml total water . Nutrition recommendation: continue with current plan of care Last recorded weight is 69.1 kg. Bowel Motility: +BM 02/20 Labs Reviewed: Hgb:8.1, HCT:27.5, BUN:22, Cr:0.4 Meds Noted: novolog, lantus Skin: WNL Additional Notes: Pt extubated, on med surg now. Tube feedings continue the same. Pt tolerating well. Will monitor weight, labs, skin, tube feeding tolerance every Sunday and Sunday.
[2023-02-20 12:01] LABS: Glucose Point of Care 89 mg/dl (65-105)
--- NOTE | 2023-02-20 16:32 | PM.DS ---
DS: Admitting Diagnosis Discharge Date 02/20/23 Admitting Diagnosis acute respiratory failure DS: Discharge Diagnosis Discharge Diagnosis Plan 1. Acute respiratory failure Resolved on supplemental o2 as needed. Recommend keep o2>88% based on hx of copd 2. COPD ct inhalers Recommend keep o2>88% based on hx of copd wear bipap at night and hold tf when on bipap at all times. TF are contraindicated for BIPAP 3. Aspiration pneumonia High risk based on hx of stroke and poor swallowing and inability to control secretions keep hob >45 degrees minimum TF at 45 ml/hr. She will not reach a TF goal rate, and there will be some malnutrition. However, she will reduce aspiration risk BID PPI's suctioning prn oral secretions may need to use atropine or glycopyrrolate or scopolamine to dry out secretions bid famotidine is fine too 4. HTN restart hctz and amlodipine keep metop at 25 mg bid currently getting losartan 5. Hx of seizures ct keppra 750 q12 6. DM lantus of 8 u or lower as needed with ISS lower insulin needs with lowering TF rate for aspiration 7. Acute leukopenia WBC count acutely fell from normal level to 19 7 days ago to 2.9 today Consulted oncology Recommended just monitoring in the setting of infections, sepsis, aspiration pneumonia Can f/u with bone marrow biopsy if needed 8. Anemia received iron infusion for acute anemia DS: Summary Hospital Course Reason for hospitalization: acute respiratory failure for aspiration pneumonia Hospital Course: Assessment and Plan (1) Acute respiratory failure with hypoxia and hypercapnia: ?Code(s): J96.01 - Acute respiratory failure with hypoxia; J96.02 - Acute respiratory failure with hypercapnia ?Status:?Acute ?Assessment and Plan: (1) Acute respiratory failure with hypoxia and hypercapnia: ?Code(s): J96.01 - Acute respiratory failure with hypoxia; J96.02 - Acute respiratory failure with hypercapnia ?Status:?Acute ?Assessment and Plan: Acute hypercapnic respiratory failure with pCO2 154 on the ABG on admission -patient was a DNR and comfort measures only was placed on Vapotherm. 01/27:? ABGs in the morning showed a pH of 6.79 with unreadable pCO2 and a PO2 of 57, discussed with patient's daughter Starr and updated her with patient's condition, she requested that we do everything and intubated the patient and the daughter rescinded the DNR status. -01/27:? Intubated - 02/01 left thoracentesis and 500 mL of fluid was removed. -02/07:? Extubated - 02/08:? Transfer out of ICU - 02/12 patient reintubated.? Likely combination of pulmonary edema and a hospital-acquired pneumonia Chest x-ray done yesterday showed worsening moderate interstitial edema.? Patient had elevated WBC count and fever Blood culture have been negative sputum culture growing Pseudomonas is pansensitive Nasal MRSA screen is negative Continue meropenem but off of vancomycin ABG and chest x-ray reviewed.? Vent settings changed to tidal volume 320 and rate to 15 Patient tolerated PSV 12/5 for few hours yesterday.? Patient placed on PSV 8/5.? If successful check an ABG to evaluate for extubation 02/17 extubated after a successful weaning trial.? BiPAP ordered p.r.n. and at night 02/18 refused to wear BiPAP overnight.? On nasal cannula.? No respiratory distress.? Discussed with the patient. Continue bronchodilators Patient?has baseline severe emphysema Continue Lasix Incentive spirometry (2) Septic shock: ?Code(s): A41.9 - Sepsis, from pseudomonas, no longer in septic shock ?Status:?Acute ?Assessment and Plan: Patient initially admitted with septic shock secondary to pneumonia and UTI and was treated with IV fluids and vasopressors Later she developed volume overload and was diuresed.? She completed a course of meropenem Now she is back in ICU with septic shock secondary to hospital-acquired pneumonia versus urinary tract infection, ?? Aspiration pneumonia -01/26:? Bl
[2023-02-20 16:49] LABS: SARS-CoV-2 RNA PCR Negative (Negative)
[2023-02-20 18:06] LABS: Glucose Point of Care 114 mg/dl (65-105)
[2023-02-20] MEDS: NEOMYCIN/POLYMYXIN/BACITRACIN OINTMENT PACKET 1 PACKET (18:31)
== END 2023-02-20 19:40 | DRG 870 ==
LOC: ANHED 18:01 → ANHICU 23:40 → ANH3MED 02-08 20:54 → ANHICU 02-12 21:24 → ANHIMU 02-18 11:40 → ANH3MEDSUR 02-19 11:56
PROVIDERS: Chiropractor; General Practice; Internal Medicine; Internal Medicine Hematology & Oncology; Nurse Practitioner; Admitting Provider Family Medicine; Emergency Provider Emergency Medicine; PCP Hospitalist; Visit Provider Internal Medicine
DX: A41.1 Sepsis due to other specified staphylococcus (principal); J96.02 Acute respiratory failure with hypercapnia; J96.01 Acute respiratory failure with hypoxia; R65.21 Severe sepsis with septic shock; J69.0 Pneumonitis due to inhalation of food and vomit; N39.0 Urinary tract infection, site not specified; Z16.12 Extended spectrum beta lactamase (ESBL) resistance; J90 Pleural effusion, not elsewhere classified; B96.20 Unspecified Escherichia coli [E. coli] as the cause of diseases classified elsewhere; B96.89 Other specified bacterial agents as the cause of diseases classified elsewhere; D63.8 Anemia in other chronic diseases classified elsewhere; E87.8 Other disorders of electrolyte and fluid balance, not elsewhere classified; E11.9 Type 2 diabetes mellitus without complications; I10 Essential (primary) hypertension; J43.9 Emphysema, unspecified; K21.9 Gastro-esophageal reflux disease without esophagitis; R13.10 Dysphagia, unspecified; R56.9 Unspecified convulsions; Y95 Nosocomial condition; Z66 Do not resuscitate; Z11.52 Encounter for screening for COVID-19; Z99.81 Dependence on supplemental oxygen; Z86.73 Personal history of transient ischemic attack (TIA), and cerebral infarction without residual deficits; Z86.16 Personal history of COVID-19; Z93.1 Gastrostomy status
CPT/HCPCS: 31500; 32555; 36415; 36556; 36600; 70450; 71045; 71250; 80048; 80053; 80069; 80076; 80202; 81001; 82274; 82375; 82607; 82728; 82746; 82805; 82945; 82947; 82948; 83050; 83540; 83550; 83605; 83615; 83735; 83880; 83986; 84100; 84145; 84155; 84157; 84484; 85025; 85027; 85610; 85730; 86140; 87040; 87070; 87077; 87081; 87086; 87088; 87186; 87205; 87635; 87641; 92610; 93005; 93306; 94002; 94003; 94640; 96365; 96367; 96375; 99285; A9270; C1729; C1751; C9113; J0360; J0456; J0692; J1450; J1652; J1756; J1815; J1940; J1956; J2185; J2250; J2543; J2920; J2930; J3010; J3370; J3475; J3480; J7030; J7040; J7050; P9047

== ENCOUNTER 2023-03-03 04:33 | Emergency (ER) | payer MEDICARE, MEDICAID, SELFPAY ==
[2023-03-03] VITALS (7 sets, daily range): BP systolic 104–116; BP diastolic 77–82; PULSE 75–90; RESP 17–20; TEMP 36.8; O2SAT 10–100
--- NOTE | ~2023-03-03 | XR_ITS ---
EXAMINATION: XR abdomen gastric tube insert DATE: 03/03/2023 05:08 INDICATION: Gastrostomy tube replacement. TECHNIQUE: A supine view of the abdomen was obtained. COMPARISON: Abdomen radiograph 02/12/2023 FINDINGS: Stool distends the rectosigmoid. There is a gastrostomy tube in expected position with cont rast in the tube and in the stomach and proximal duodenum. There is a filter in the inferior vena cav a. A Tam catheter is noted. IMPRESSION: 1. Gastrostomy tube in expected position. 2. Stool distends the rectosigmoid. Reviewed, dictated and finalized at location E. TY SPEC
--- NOTE | 2023-03-03 04:56 | ED.GENADULT ---
HPI - General Adult General Chief complaint: Unspecified Stated complaint: DISPLACED G-TUBE Time Seen by Provider: 03/03/23 04:43 History of Present Illness HPI narrative: Patient 77-year-old female who presents emergency department with chief complaint of pulled out G-tube. Patient is a resident of a local nursing facility and this morning pulled out her G-tube approximately 1 hour ago facility attempted to replace the G-tube without success. Patient currently has no complaints Related Data Home Medications Medication Instructions Recorded Confirmed acetaminophen 325 mg capsule 650 mg PO Q6-8H PRN Pain 07/17/22 01/27/23 amlodipine 10 mg tablet 10 mg DAILY 07/17/22 01/27/23 famotidine 20 mg tablet 20 mg PO BID 07/17/22 01/27/23 hydrochlorothiazide 25 mg tablet 25 mg PO DAILY 07/17/22 01/27/23 ipratropium 0.5 mg-albuterol 3 mg 1 ml Q6H PRN Shortness Of Breath 07/17/22 01/27/23 (2.5 mg base)/3 mL nebulization soln levetiracetam 750 mg tablet 750 mg PO Q12H 07/17/22 01/27/23 losartan 50 mg tablet 50 mg PO DAILY 07/17/22 01/27/23 mirtazapine 7.5 mg tablet 7.5 mg PO HS 07/17/22 01/27/23 Lactobacillus acidophilus 10 mg PO DAILY 01/27/23 01/27/23 (Acidophilus capsule) melatonin 5 mg tablet 5 mg PO HS PRN Insomnia 01/27/23 01/27/23 ondansetron 4 mg disintegrating 4 mg PO Q6H PRN Nausea 01/27/23 01/27/23 tablet Allergies Allergy/AdvReac Type Severity Reaction Status Date / Time heparin (porcine) Allergy Unknown Verified 12/30/22 02:45 Review of Systems Review of Systems: A 10 system review of systems was completed on the patient and is negative except for what is stated in the HPI. Nursing and ancillary documentation was reviewed. [facility] Past Medical History Medical History Acute hypercapnic respiratory failure DNR (do not resuscitate) Essential hypertension Pneumonia Seizures Social History Social History Smoking status: Unknown if ever smoked Alcohol intake: unknown Substance use: unknown Spiritual care concerns: No Exam Narrative: GENERAL: Well-appearing, well-nourished, and in no acute distress. HEAD: Normocephalic, atraumatic. EYES: PERRLA and EOMI. ENT: Nares clear, no rhinorrhea or epistaxis. Mucous membranes moist. NECK: Supple. CHEST: Clear to auscultation. No respiratory distress. HEART: Regular rate and rhythm. No murmur heard. Normal peripheral pulses. ABDOMEN: Soft, nontender, nondistended, normal active bowel sounds. G-tube stoma site intact EXTREMITIES: Normal range of motion. No edema. SKIN: Warm, dry, no rash. NEURO: No focal deficits. Alert and oriented x3. PSYCH: Normal mood and affect. Course Vital Signs Vital signs: Vital Signs Temperature 36.8 C 03/03/23 04:33 Pulse Rate 90 03/03/23 04:33 Respiratory Rate 20 03/03/23 04:33 Blood Pressure 109/77 03/03/23 04:33 Pulse Oximetry 10 L 03/03/23 04:33 Oxygen Delivery Nasal Cannula 03/03/23 04:33 Oxygen Flow Rate 4 03/03/23 04:33 Temperature 36.8 C 03/03/23 04:33 Pulse Rate 90 03/03/23 04:33 Respiratory Rate 20 03/03/23 04:33 Blood Pressure 109/77 03/03/23 04:33 Pulse Oximetry 10 L 03/03/23 04:33 Oxygen Delivery Nasal Cannula 03/03/23 04:33 Oxygen Flow Rate 4 03/03/23 04:33 Procedures Feeding Tube Replacement Feeding Tube #1: Feeding Tube Placement Date: 03/03/23 Feeding Tube Placement Time: 04:58 Type of Tube: gastrostomy Insertion Site Prior to Procedure: clean Tube Used for Reinsertion: other Arabic Tube Size (F): 20 Balloon size (mL): 10 Verification of Placement: auscultation, KUB and gastrografin injection Tube Secured by: attachment device Patient Tolerated Procedure: well Medical Decision Making MDM Narrative Medical decision making narrative: The miya
--- NOTE | 2023-03-03 05:27 | PC.NURSE ---
ERP placed new g-tube in patient. Placed 20F tube, verified placement by xray.
--- NOTE | 2023-03-03 05:31 | PC.NURSE ---
Patients daughter Starr calls to get update on patient. This RN gave update and that new tube placed and patient waiting for EMS to take her back home.
== END 2023-03-03 06:46 ==
PROVIDERS: Emergency Provider Emergency Medicine; PCP Hospitalist
DX: Z43.1 Encounter for attention to gastrostomy (principal); Z66 Do not resuscitate; I10 Essential (primary) hypertension; Z87.01 Personal history of pneumonia (recurrent)
CPT/HCPCS: 43762; 99283

== ENCOUNTER 2023-03-03 18:59 | Emergency (ER) | payer MEDICARE, MEDICAID, SELFPAY ==
--- NOTE | ~2023-03-03 | XR_ITS ---
EXAM: XR abdomen gastric tube insert DATE: 03/03/2023 20:27 HISTORY: peg tube replacement, 50CC OMNI 350 . COMPARISON: Same date at 5:05 AM. FINDINGS: Clear lung bases. IVC filter. PEG tube terminating in similar position, obscured by overla pping and adjacent loops of small bowel. Large volume of rectal stool. IMPRESSION: PEG tube in good position. Likely fecal impaction. Reviewed, dictated and finalized at location K. D [employer] FARMER
[2023-03-03 19:07] VITALS: BP 107/81; PULSE 100; RESP 20; TEMP 36.6; O2SAT 100
--- NOTE | 2023-03-03 19:58 | ED.GENADULT ---
HPI - General Adult General Chief complaint: Recheck/Abnormal Lab/Rx Stated complaint: DISLODGED G-TUBE Time Seen by Provider: 03/03/23 19:16 History of Present Illness HPI narrative: Patient 77-year-old female presents emerged part with chief complaint of dislodged G-tube. Patient recently had a PEG tube that was pulled out and the patient pulled it out again today while getting her feeding. The patient currently has no complaints. Related Data Home Medications Medication Instructions Recorded Confirmed acetaminophen 325 mg capsule 650 mg PO Q6-8H PRN Pain 07/17/22 01/27/23 amlodipine 10 mg tablet 10 mg DAILY 07/17/22 01/27/23 famotidine 20 mg tablet 20 mg PO BID 07/17/22 01/27/23 hydrochlorothiazide 25 mg tablet 25 mg PO DAILY 07/17/22 01/27/23 ipratropium 0.5 mg-albuterol 3 mg 1 ml Q6H PRN Shortness Of Breath 07/17/22 01/27/23 (2.5 mg base)/3 mL nebulization soln levetiracetam 750 mg tablet 750 mg PO Q12H 07/17/22 01/27/23 losartan 50 mg tablet 50 mg PO DAILY 07/17/22 01/27/23 mirtazapine 7.5 mg tablet 7.5 mg PO HS 07/17/22 01/27/23 Lactobacillus acidophilus 10 mg PO DAILY 01/27/23 01/27/23 (Acidophilus capsule) melatonin 5 mg tablet 5 mg PO HS PRN Insomnia 01/27/23 01/27/23 ondansetron 4 mg disintegrating 4 mg PO Q6H PRN Nausea 01/27/23 01/27/23 tablet Allergies Allergy/AdvReac Type Severity Reaction Status Date / Time heparin (porcine) Allergy Unknown Verified 12/30/22 02:45 Review of Systems Review of Systems: A 10 system review of systems was completed on the patient and is negative except for what is stated in the HPI. Nursing and ancillary documentation was reviewed. [facility] Past Medical History Medical History Acute hypercapnic respiratory failure DNR (do not resuscitate) Essential hypertension Pneumonia Seizures Social History Social History Smoking status: Unknown if ever smoked Alcohol intake: unknown Substance use: unknown Spiritual care concerns: No Exam Narrative: GENERAL: Well-appearing, well-nourished, and in no acute distress. HEAD: Normocephalic, atraumatic. EYES: PERRLA and EOMI. ENT: Nares clear, no rhinorrhea or epistaxis. Mucous membranes moist. NECK: Supple. CHEST: Clear to auscultation. No respiratory distress. HEART: Regular rate and rhythm. No murmur heard. Normal peripheral pulses. ABDOMEN: Soft, nontender, nondistended, normal active bowel sounds. PEG tube site present EXTREMITIES: Normal range of motion. No edema. SKIN: Warm, dry, no rash. NEURO: No focal deficits. Alert and oriented to baseline. PSYCH: Normal mood and affect. Course Vital Signs Vital signs: Vital Signs Temperature 36.6 C 03/03/23 19:07 Pulse Rate 100 03/03/23 19:07 Respiratory Rate 20 03/03/23 19:07 Blood Pressure 107/81 03/03/23 19:07 Pulse Oximetry 100 03/03/23 19:07 Temperature 36.6 C 03/03/23 19:07 Pulse Rate 100 03/03/23 19:07 Respiratory Rate 20 03/03/23 19:07 Blood Pressure 107/81 03/03/23 19:07 Pulse Oximetry 100 03/03/23 19:07 Procedures Feeding Tube Replacement Feeding Tube #1: Feeding Tube Placement Date: 03/03/23 Feeding Tube Placement Time: 19:58 Type of Tube: gastrostomy Insertion Site Prior to Procedure: clean Tube Used for Reinsertion: Bard Lithuanian Tube Size (F): 20 Balloon size (mL): 20 Verification of Placement: auscultation, KUB and gastrografin injection Tube Secured by: attachment device Patient Tolerated Procedure: well Medical Decision Making MDM Narrative Medical decision making narrative: Differential diagnosis includes G-tube malfunction, accidental G-tube removal. G-tube was replaced and verified in position with Gastrografin feeding tube study A abdominal binder was placed on the patient to help redu
--- NOTE | 2023-03-03 20:03 | PC.NURSE ---
G-tube inserted by EDP Dr. May. Abdominal binder placed.
[2023-03-03 21:44] VITALS: BP 104/73; PULSE 97; RESP 20; O2SAT 100
--- NOTE | 2023-03-03 21:47 | PC.NURSE ---
Gabriela, pt caregiver at [facility], called for report.
== END 2023-03-03 22:32 ==
PROVIDERS: Emergency Provider Emergency Medicine; PCP Hospitalist
DX: Z43.1 Encounter for attention to gastrostomy (principal); I10 Essential (primary) hypertension; Z66 Do not resuscitate; Z87.01 Personal history of pneumonia (recurrent)
CPT/HCPCS: 43762; 99283

== ENCOUNTER 2023-03-24 21:03 | Inpatient (IN) | payer MEDICARE, MEDICAID, SELFPAY ==
[2023-03-24] VITALS (16 sets, daily range): BP systolic 81–110; BP diastolic 50–69; PULSE 93–116; RESP 19–38; TEMP 35.5–36; O2SAT 98–100
--- NOTE | ~2023-03-24 | CT_ITS ---
EXAMINATION: CT brain wo con DATE: 03/25/2023 03:39 INDICATION: Altered mental status TECHNIQUE: Computed tomography (CT) of the head was performed without intravenous contrast. Sagittal and coronal reconstructions were performed. The mA was adjusted according to patient size. Iterative reconstruction technique was employed. The dose-length product was 681.00 mGy-cm. COMPARISON: head CT dated 01/26/2023 and 07/17/2022 FINDINGS: No interval change in high attenuation dystrophic calcifications in the posterior left basal ganglia. No acute intracranial hemorrhage, acute infarction or abnormal extra axial fluid collection. There i s mild scattered white matter hypoattenuation consistent with chronic small vessel ischemic disease. Symmetric prominence of the sulci consistent with mild age-appropriate diffuse cerebral volume loss. Ventricles are normal and symmetric. No mass/mass effect. Chronic small bilateral mastoid effusions. The orbits, paranasal sinuses and mastoid air cells are normal. IMPRESSION: 1. No acute intracranial process. 2. Stable appearance of a region of dystrophic calcification in the posterolateral left basal ganglia . 2. Age-related changes including mild diffuse volume loss and mild scattered white matter hypoattenua tion consistent with chronic small vessel ischemic disease. Reviewed, dictated and finalized at location A. SURE CONTROLLER IMPRESSION: 1. No acute intracranial process. 2. Stable appearance of a region of dystrophic calcification in the posterolate ral left basal ganglia. 2. Age-related changes including mild diffuse volume loss and mild scattered wh ite matter hypoattenuation consistent with chronic small vessel ischemic diseas e.
--- NOTE | ~2023-03-24 | XR_ITS ---
XR chest 1V portable 03/24/2023 21:17 Indication: Dyspnea Procedure: AP portable chest Comparison: 02/17/2023 Findings: Emphysema. Cardiomegaly with diffuse bilateral airspace disease which has developed since p rior examination. Small pleural effusions. No pneumothorax. Impression: 1: Interval development of diffuse bilateral airspace disease which may represent edema or pneumonia. 2: Small pleural effusions. 3: Emphysema. Reviewed, dictated and finalized at location A. S PROJECT ENGINEER Impression: 1: Interval development of diffuse bilateral airspace disease which may represe nt edema or pneumonia. 2: Small pleural effusions. 3: Emphysema.
--- NOTE | 2023-03-24 21:10 | ECG_ITS ---
Measurements Intervals [place] Rate: 104 P: 17 AK: 159 QRS: 49 QRSD: 81 T: 56 QT: 358 QTc: 473 Interpretive Statements SINUS TACHYCARDIA BASELINE ARTIFACT NONSPECIFIC T-WAVE ABNORMALITY BORDERLINE ECG COMPARED TO ECG 02/12/2023 12:20:58 SINUS TACHYCARDIA NOW PRESENT Electronically Signed On 03-25-2023 11:53:30 METAL EXPEDITER by Duran Moreira M.D.
[2023-03-24] MEDS: SODIUM CHLORIDE 0.9% IV 1,000 ML 999 ML IV CONT ×3 (21:40→23:57)
[2023-03-24 21:58] LABS: INR 1.1
[2023-03-24 21:59] LABS: Basophils Absolute Auto 0.1 K/mm3 (0.0-0.1); Basophils Percent Auto 0.5 % (0.2-1.2); Eosinophils Percent Auto 0.1 % (0-4.4); Hemoglobin 12.2 g/dL (12.0-15.0); Immature Granulocyte Absolute 0.22 K/mm3 (0.00-0.031); Immature Granulocyte Percent A 0.8 % (0-0.5); Lactic Acid Reflex 2.7 mmol/L (0.7-2.0); Lymphocytes Absolute Auto 1.84 K/mm3 (0.9-3.2); Lymphocytes Percent Auto 6.7 % (18.3-44.2); Mean Corpuscular Hemoglobin 28.2 pg (26-34); Mean Corpuscular Volume 97.2 fl (80-100); Mean Platelet Volume 9.8 fl (7.4-10.4); Monocytes Percent Auto 3.5 % (2.6-8.5); Neutrophils Absolute Auto 24.2 K/mm3 (1.3-6.7); Neutrophils Percent Auto 88.4 % (45.5-73.1); Partial Thromboplastin Time 27.7 SECONDS (22.3-36.8); Platelet Count Result 513 k/mm3 (150-375); Red Blood Count 4.32 M/mm3 (4.2-5.4); Red Cell Distribution Width 15.9 % (11.5-14.5); White Blood Count 27.4 K/mm3 (4.5-10.0)
[2023-03-24 22:00] LABS: Alanine Aminotransferase 17 U/L (6-35); Albumin Level 4.1 g/dL (3.5-5.1); Alkaline Phosphatase 101 U/L (38-126); Anion Gap 11 mmol/L (8-16); Aspartate Amino Transferase 33 U/L (14-36); Bilirubin,Total 0.6 mg/dL (0.2-1.3); Blood Urea Nitrogen 24 mg/dL (7-17); Calcium 9.4 mg/dL (8.4-10.2); Carbon Dioxide 29 mmol/L (22-30); Chloride 96 mmol/L (98-107); Estimated CRCL calculation 67 ml/min; Estimated Glomerular Filt Rate > 60; Glucose 304 mg/dL (65-110); Magnesium 3.2 mg/dL (1.6-2.3); Sodium 136 mmol/L (137-145)
[2023-03-24 22:10] LABS: NT Pro B Type Natriuretic Pept 334 pg/mL (19.9-100); Troponin I < 0.012 ng/mL (0.000-0.034)
--- NOTE | 2023-03-24 22:11 | ED.GENADULT ---
HPI - General Adult General Chief complaint: Shortness of Breath/Dyspnea Stated complaint: UNRESPONSIVE; RESPIRATORY DISTRESS Time Seen by Provider: 03/24/23 21:06 History of Present Illness HPI narrative: patient is a 77-year-old female who presents to emergency department with chief complaint of unresponsiveness. Per EMS the patient was pale and hypoxic. The patient has prior history urinary tract infections and pneumonia the patient has been previously intubated the patient had a documented DNR with comfort measures on the chart and discussion with the family they do want intubation and possibly considering central line and other and vasopressin agents they do not want CPR. Related Data Home Medications Medication Instructions Recorded Confirmed acetaminophen 325 mg capsule 650 mg PO Q6-8H PRN Pain 07/17/22 01/27/23 amlodipine 10 mg tablet 10 mg DAILY 07/17/22 01/27/23 famotidine 20 mg tablet 20 mg PO BID 07/17/22 01/27/23 hydrochlorothiazide 25 mg tablet 25 mg PO DAILY 07/17/22 01/27/23 ipratropium 0.5 mg-albuterol 3 mg 1 ml Q6H PRN Shortness Of Breath 07/17/22 01/27/23 (2.5 mg base)/3 mL nebulization soln levetiracetam 750 mg tablet 750 mg PO Q12H 07/17/22 01/27/23 losartan 50 mg tablet 50 mg PO DAILY 07/17/22 01/27/23 mirtazapine 7.5 mg tablet 7.5 mg PO HS 07/17/22 01/27/23 Lactobacillus acidophilus 10 mg PO DAILY 01/27/23 01/27/23 (Acidophilus capsule) melatonin 5 mg tablet 5 mg PO HS PRN Insomnia 01/27/23 01/27/23 ondansetron 4 mg disintegrating 4 mg PO Q6H PRN Nausea 01/27/23 01/27/23 tablet Allergies Allergy/AdvReac Type Severity Reaction Status Date / Time heparin (porcine) Allergy Unknown Verified 12/30/22 02:45 Review of Systems Review of Systems: A 10 system review of systems was completed on the patient and is negative except for what is stated in the HPI. Nursing and ancillary documentation was reviewed. [facility] Past Medical History Medical History Acute hypercapnic respiratory failure DNR (do not resuscitate) Essential hypertension Pneumonia Seizures Social History Social History Smoking status: Unknown if ever smoked Alcohol intake: unknown Substance use: unknown Spiritual care concerns: No Exam Narrative: GENERAL: Feel-appearing, thin cachectic, and in moderate acute respiratorydistress. HEAD: Normocephalic, atraumatic. EYES: PERRLA and EOMI. ENT: Nares clear, no rhinorrhea or epistaxis. Mucous membranes moist. NECK: Supple. CHEST: rhonchi to auscultation. moderate respiratory distress. HEART: Regular rate and rhythm. No murmur heard. Normal peripheral pulses. ABDOMEN: Soft, nontender, nondistended, normal active bowel sounds. PEG tube in place EXTREMITIES: no signs of trauma, no edema. SKIN: diaphoretic, no rash. NEURO: decreased responsiveness PSYCH: unable to determine Course Vital Signs Vital signs: Vital Signs Temperature 35.5 C L 03/24/23 21:11 Pulse Rate 112 H 03/24/23 21:11 Respiratory Rate 25 H 03/24/23 21:11 Blood Pressure 110/61 03/24/23 21:11 Pulse Oximetry 100 03/24/23 21:11 Oxygen Delivery Non-Rebreather Mask 03/24/23 21:11 Oxygen Flow Rate 15 03/24/23 21:11 Temperature 35.5 C L 03/24/23 21:11 Pulse Rate 112 H 03/24/23 21:11 Respiratory Rate 25 H 03/24/23 21:11 Blood Pressure 110/61 03/24/23 21:11 Pulse Oximetry 100 03/24/23 21:22 Oxygen Delivery Non-Rebreather Mask 03/24/23 21:22 Oxygen Flow Rate 15 03/24/23 21:22 Medical Decision Making Vital Signs Vital Signs: Vital Signs Temperature 35.5 C L 03/24/23 21:11 Pulse Rate 112 H 03/24/23 21:11 Respiratory Rate 25 H 03/24/23 21:11 Blood Pressure 110/61 03/24/23 21:11 Pulse Oximetry 100 03/24/23 21:11 Oxygen Delivery Non-Rebreather Mask 03/24/23 21:11 Oxygen Flow Rate 15
[2023-03-24 22:14] LABS: Alveolar/Arterial O2 Gradient 288.7 mmHg; Base Excess ABG -5.1 mEq/l (+/-2.0); Fractional Inspired Oxygen 90 %; HCO3 ABG 25.9 mEq/l (22.0-26.0); Oxygen Content ABG 17.9 %vol (16.0-22.0); Oxygen Saturation ABG 99.4 % (95.0-100.0); PO2 ABG 268.7 mmHg (80.0-100.0); PO2 FiO2 Ratio Arterial Blood 2.99 %; Total Hemoglobin 12.5 g/dL (12.0-18.0)
--- NOTE | 2023-03-24 22:15 | PC.NURSE ---
August catheter in place upon arrival removed and replaced with new august.
[2023-03-24 22:16] LABS: PCO2 ABG 82.3 mmHg (35.0-45.0); pH ABG 7.116 (7.350-7.450)
[2023-03-24 22:17] LABS: Device NON-REBREATHER MASK; Modified Allen's Test Pass; Site Drawn LEFT RADIAL
[2023-03-24 22:22] LABS: Influenza A QL RT-PCR Negative (Negative); Influenza B QL RT-PCR Negative (Negative); RSV RNA, RT-PCR Negative (Negative); SARS-CoV-2 RNA PCR Negative (Negative)
[2023-03-24 22:48] LABS: Procalcitonin 0.4 ng/mL
[2023-03-24] MEDS: CEFEPIME 2 GM/NS 50 ML 2 GM/50 ML BAG IVPB (22:54)
[2023-03-24 23:47] LABS: Appearance Urine Turbid (Clear); Bacteria Urine 4+ /hpf; Bilirubin Urine Negative (Negative); Blood Urine 3+ (Negative); Color Urine Dark Yellow (Yellow); Glucose Urine UA Negative (Negative); Ketones Urine Negative (Negative); Leukocyte Esterase Ur 3+ LEU/UL (Negative); Nitrate Urine Negative (Negative); Non Pathogenic Casts >20; Protein Urine 3+ mg/dL (Negative); RBC Urine >100 /hpf (0-2); Specific Grav Ur 1.015 (1.001-1.035); Squamous Epithelial Cell Urine Occasional /hpf (Few); Triple Phosphate Crystal Urine Present /hpf; Urobilinogen Urine 0.2 mg/dL (<2.0); WBC Urine 21-50 /hpf
[2023-03-24 23:48] LABS: Add Urine Microscopic? YES
[2023-03-25] VITALS (28 sets, daily range): BP systolic 76–100; BP diastolic 51–71; PULSE 94–114; RESP 20–32; TEMP 36.2–37; O2SAT 96–100; BMI 22.1
[2023-03-25 00:37] LABS: MRSA (PCR) NOT DETECTED (NOT DETECTE)
[2023-03-25] MEDS: SODIUM CHLORIDE 0.9% IV 1,000 ML 999 ML IV CONT (00:40)
[2023-03-25 00:45] LABS: Reflex Lactic Acid Yes or No Add Lactic
--- NOTE | 2023-03-25 00:51 | PC.NURSE ---
Dr. May made aware of several low blood pressures. Corrective fluids have been given (See MAR)
--- NOTE | 2023-03-25 01:51 | PM.IMHP ---
H&P: HPI History of Present Illness Date/Time: 03/25/23 01:51 Chief Complaint: Unresponsive pain Narrative: 77-year-old female with a past medical history of seizures, CHF, DVT, essential hypertension, COPD GERD and dysphagia who presented to the ER via EMS from [facility] due to being unresponsive. Patient is unable to provide any history in subsequently all history is obtained from review of past medical records and ER physician report. The patient was admitted to the hospital in [facility] back in April 2022 due to COVID. She developed dysphagia at that time and started on G-tube feeds. She was restarted on oral feeds in June and the patient presented to the hospital again that with hypercapnic respiratory failure, UTI and septic shock. She was readmitted to the hospital early January at which time she had similar symptoms and required intubation she was subsequently extubated and reintubated prior to being stable enough for discharge. Today the patient arrived from the retirement hypothermic with temperature of 95.6?, tachycardic, hypoxic and hypercapnic. Initial ABG demonstrated severe respiratory acidosis pH 7.11 and pCO2 of 82. Her initial blood pressure was 110/61 but did drop as low as 76/57. She received 4 L of IV fluids in the ER with improvement in her blood pressure to 103/66 on arrival to the ICU. The patient was only pulling tidal volumes of about 250 mL on BiPAP settings of 16/6 with a rate of 15 on arrival to ICU. Stat ABG was performed which demonstrated minimal improvement in pH and mild improvement pCO2 down to 67. Patient was started on empiric antibiotic therapy with cefepime and vancomycin. Blood cultures and urine cultures were obtained in the ER. The patient's urine in the ER was grossly abnormal in her Tam catheter. Her Tam was exchanged in the ER and cultures were sent from the patient's new catheter. The retirement staff reported that the patient's insurance stopped paying for scopolamine patches. Family is concerned that patient may have aspirated since school mi a mean patches were discontinued. Review of Systems Review of Systems: ROS unobtainable: Yes unobtainable due to mental status PMFSH Past Medical History Medical History (Updated 03/25/23 @ 02:49 by Holli Camara DO) COPD with emphysema Diastolic dysfunction Echocardiogram 01/2023: EF greater than 70%, grade 1 diastolic dysfunction, mild left atrial enlargement, mild tricuspid regurgitation, moderate pulmonary hypertension, pleural effusion seen DVT (deep venous thrombosis) Dysphagia Essential hypertension GERD (gastroesophageal reflux disease) Moderate pulmonary hypertension Seizures Surgical History Surgical History (Updated 03/25/23 @ 02:10 by Holli Camara DO) Gastrointestinal tube present Family History Family History (Updated 03/25/23 @ 02:10 by Holli Camara DO) Other Unknown family medical history Social History Social History (Updated 03/25/23 @ 02:41 by Holli Camara DO) Social History: Patient is currently residing at [facility]. Patient has a daughter and a son. Code status: No CPR Smoking status: Unknown if ever smoked Alcohol intake: unknown Substance use: unknown Spiritual care concerns: No Meds Home Medications and Allergies Home Medications Medication Instructions Recorded Confirmed Type acetaminophen 325 mg capsule 650 mg PO Q6-8H PRN Pain 07/17/22 01/27/23 History amlodipine 10 mg tablet 10 mg DAILY 07/17/22 01/27/23 History famotidine 20 mg tablet 20 mg PO BID 07/17/22 01/27/23 History hydrochlorothiazide 25 mg tablet 25 mg PO DAILY 07/17/22 01/27/23 History ipratropium 0.5 mg-albuterol 3 mg 1 ml Q6H PRN Shortness Of Breath 07/17/22 01/27/23 History (2.5 mg base)/3 mL nebulization soln levetiracetam 750 mg tablet 750 mg PO Q12H 07/17/22 01/27/23 History losartan 50 mg tablet 50 mg PO DAILY
[2023-03-25] MEDS: SODIUM CHLORIDE 0.9% IV 1,000 ML 125 ML IV CONT (02:11)
[2023-03-25 02:14] LABS: Alveolar/Arterial O2 Gradient 189.1 mmHg; Base Excess ABG -3.3 mEq/l (+/-2.0); Fractional Inspired Oxygen 50 %; HCO3 ABG 25.8 mEq/l (22.0-26.0); Oxygen Content ABG 15.4 %vol (16.0-22.0); Oxygen Saturation ABG 94.8 % (95.0-100.0); Oxyhemoglobin 93.8 % THb (90.0-100.0); PO2 FiO2 Ratio Arterial Blood 1.82 %; Total Hemoglobin 11.6 g/dL (12.0-18.0)
[2023-03-25 02:21] LABS: Glucose Point of Care 187 mg/dl (65-105)
[2023-03-25 02:21] LABS: pH ABG 7.197 (7.350-7.450)
[2023-03-25 02:23] LABS: Device NON-INVASIVE VENT; Modified Allen's Test Pass; Non-Invasive Expiratory Pressure 6 CMH2O; Non-Invasive Inspiratory Pressure 16 CMH2O; Non-Invasive Vent Rate 20 /MIN; PCO2 ABG 67.9 mmHg (35.0-45.0); Site Drawn LEFT RADIAL
--- NOTE | 2023-03-25 02:30 | ADMGEN ---
This patient, Garbiela Aguayo, was admitted to Intensive Care Unit-3. Patient/family oriented to hospital policies and general routines including ID bracelet, bed and alarms, visiting hours, pain management, procedures, bathroom and other care routines, personal items, smoking policy, room service/diet, and visiting hours. Information on how to activate the Rapid Response Team has been discussed. Patient/Family are encouraged to report perceived risks to care and to ask questions if they do not understand what they are told or what they should do. Attempted to call family at [phone]. No answer. Left voicemail.
[2023-03-25 04:08] LABS: Basophils Absolute Auto 0.1 K/mm3 (0.0-0.1); Basophils Percent Auto 0.3 % (0.2-1.2); Hematocrit 34.8 % (37.0-47.0); Hemoglobin 10.3 g/dL (12.0-15.0); Immature Granulocyte Absolute 0.16 K/mm3 (0.00-0.031); Immature Granulocyte Percent A 0.7 % (0-0.5); Lymphocytes Absolute Auto 0.22 K/mm3 (0.9-3.2); Mean Corpuscular HGB Conc 29.6 g/dl (32-36); Mean Corpuscular Hemoglobin 28.5 pg (26-34); Mean Corpuscular Volume 96.1 fl (80-100); Mean Platelet Volume 9.5 fl (7.4-10.4); Monocytes Absolute Auto 0.7 K/mm3 (0.1-0.6); Neutrophils Absolute Auto 21.1 K/mm3 (1.3-6.7); Platelet Count Result 371 k/mm3 (150-375); Red Blood Count 3.62 M/mm3 (4.2-5.4); Red Cell Distribution Width 15.9 % (11.5-14.5); White Blood Count 22.3 K/mm3 (4.5-10.0)
[2023-03-25 04:20] LABS: Hemoglobin A1C 5.4 % (<5.7)
[2023-03-25 04:21] LABS: Lactic Acid 1.5 mmol/L (0.7-2.0)
[2023-03-25 04:22] LABS: Alanine Aminotransferase 17 U/L (6-35); Albumin Level 3.3 g/dL (3.5-5.1); Alkaline Phosphatase 97 U/L (38-126); Anion Gap 9 mmol/L (8-16); Aspartate Amino Transferase 30 U/L (14-36); Bilirubin,Total 0.6 mg/dL (0.2-1.3); Blood Urea Nitrogen 17 mg/dL (7-17); Carbon Dioxide 24 mmol/L (22-30); Chloride 106 mmol/L (98-107); Estimated CRCL calculation 81 ml/min; Estimated Glomerular Filt Rate > 60; Glucose 183 mg/dL (65-110); Potassium 3.3 mmol/L (3.4-5.0); Sodium 139 mmol/L (137-145)
[2023-03-25 04:43] LABS: Platelet Estimate Adequate (Adequate)
[2023-03-25 04:44] LABS: Alveolar/Arterial O2 Gradient 133.1 mmHg; Base Excess ABG -1.6 mEq/l (+/-2.0); Carboxyhemoglobin 0.3 % THb (0-2.0); Fractional Inspired Oxygen 40 %; HCO3 ABG 26.7 mEq/l (22.0-26.0); Methemoglobin ABG 0.3 %THb (0-1.5); Oxygen Saturation ABG 93.3 % (95.0-100.0); Oxyhemoglobin 92.3 % THb (90.0-100.0); PO2 ABG 79.1 mmHg (80.0-100.0); PO2 FiO2 Ratio Arterial Blood 1.98 %; Reduced Hemoglobin 7.1 %THb (0-5.0); Total Hemoglobin 11.5 g/dL (12.0-18.0)
[2023-03-25 04:45] LABS: Anisocytosis 1+ (NORMAL); Hypochromasia 1+ (NORMAL); Large Platelets Present; Poikilocytosis 1+ (NORMAL); Schistocytes None Seen (NORMAL)
[2023-03-25 04:52] LABS: PCO2 ABG 63.5 mmHg (35.0-45.0); Site Drawn LEFT RADIAL
[2023-03-25 04:53] LABS: Device NON-INVASIVE VENT; Modified Allen's Test Pass; pH ABG 7.242 (7.350-7.450)
[2023-03-25 04:54] LABS: Non-Invasive Expiratory Pressure 6 CMH2O; Non-Invasive Inspiratory Pressure 18 CMH2O; Non-Invasive Vent Rate 25 /MIN
[2023-03-25] MEDS: metroNIDAZOLE 500 MG/ISO 100ML 500 MG/100 ML BAG 100 MG IVPB ×2 (05:34→08:46)
[2023-03-25] MEDS: POTASSIUM CHLORIDE 20 MEQ PACKET (FOR LIQUID) 40 MEQ FEED TUBE (05:51)
--- NOTE | 2023-03-25 05:52 | PM.TDS ---
Transfer Discharge Sum: Prov Provider Date of admission: 03/24/23 23:18 Primary care physician: Luisito Sher MD Admitting clinician: Holli Camara DO Consults: 03/24/23 23:19 Consult to Physician Routine Comment: Consulting Provider: Mary Cannon Reason for consultation: septic patient with hypercapnic respiratory failure Has provider been notified: Yes Attending physician on discharge: Holli Camara Discharging clinician: Holli Camara Anticipated date of transfer: 03/25/23 Receiving physician/facility: [facility] Dr. Barrios DS: Admitting Diagnosis Discharge Date 03/25/2023 Admitting Diagnosis Acute on chronic hypercapnic hypoxic respiratory failure Pneumonia Hypotension Sepsis DS: Discharge Diagnosis Discharge Diagnosis (1) Acute intracranial hemorrhage: Code(s): I62.9 - Nontraumatic intracranial hemorrhage, unspecified Status: Acute (2) Acute respiratory failure with hypoxia and hypercapnia: Code(s): J96.01 - Acute respiratory failure with hypoxia; J96.02 - Acute respiratory failure with hypercapnia Status: Acute (3) Pneumonia: Qualifiers: Laterality: left Lung location: lower lobe of lung Pneumonia type: due to unspecified organism Qualified Code(s): J18.9 - Pneumonia, unspecified organism Code(s): J18.9 - Pneumonia, unspecified organism Status: Acute (4) Poor prognosis: Code(s): Z78.9 - Other specified health status Status: Acute Plan The patient was admitted for suspected aspiration pneumonia. Patient was started empiric antibiotic therapy with cefepime and vancomycin and Flagyl was added. On exam patient was noted to have unequal pupils with left pupil being slightly larger than the right and pupils were dilated and sluggishly reactive. I subsequently sent the patient for a stat CT of the head which demonstrated 3.1 x 0.5 cm hyperdensity presumed hemorrhage within the parenchyma of the posterior left medial temporal lobe and sub insula. History would have to exclude the remote possibility of herpes encephalitis due to location. Patient's case was called and discussed with the director government and the patient's family. The family reported that they would still want the patient intubated and were fully prepared for the patient to be placed on a tracheostomy during her last hospitalization. They want the patient transferred for further evaluation and treatment. [facility] transfer line was contacted. I received an accepting physician Dr. Barrios after discussing the patient's case with Dr. Drake. An additional 1 hour 40 minutes was spent in critical care activities and in arranging transfer. This is in addition to the time spent on the patient's admission H&P. I talked to the patient's daughter Starr Pichardo multiple times in all questions were answered. Plan of care was discussed. She was updated that the patient is going to be transferred to [facility] and that there is a bed available. Transfer Discharge Sum: Med Medications Active and Home Medications: Home Medications acetaminophen 325 mg capsule 650 mg PO Q6H PRN Pain 07/17/22 [History Confirmed 03/25/23] amlodipine 10 mg tablet 10 mg PO DAILY 07/17/22 [History Confirmed 03/25/23] famotidine 20 mg tablet 20 mg PO BID 07/17/22 [History Confirmed 03/25/23] hydrochlorothiazide 25 mg tablet 25 mg PO DAILY 07/17/22 [History Confirmed 03/25/23] ipratropium 0.5 mg-albuterol 3 mg (2.5 mg base)/3 mL nebulization soln 1 ml inhalation Q6H PRN Shortness Of Breath 07/17/22 [History Confirmed 03/25/23] levetiracetam 750 mg tablet 750 mg PO Q12H 07/17/22 [History Confirmed 03/25/23] losartan 50 mg tablet 50 mg PO DAILY 07/17/22 [History Confirmed 03/25/23] mirtazapine 7.5 mg tablet 7.5 mg PO HS 07/17/22 [History Confirmed 03/25/23] ipratropium bromide 0.02 % solution for inhalation 0.5 mg (2.5 mL) inhalation Q6HRT #75 mL 07/25/22 [Rx Confirmed 03/25/23] pantoprazole 40 mg
--- NOTE | 2023-03-25 06:28 | PC.NURSE ---
Daughter Starr Morales called for update on Mom; while on phone this nurse and Maida Jesus RN witnessed consent for transfer.
[2023-03-25] MEDS: levETIRAcetam IV 750 MG in DEXTROSE 5% 100 ML 430 MG IVPB (07:11)
[2023-03-25] MEDS: ALBUTEROL SULFATE NEB 2.5 MG/3 ML INH 5 MG INHALATION (07:41)
[2023-03-25] MEDS: IPRATROPIUM BR 0.02% INH SOLN 0.5 MG/2.5 ML VIAL INHALATION (07:41)
[2023-03-25] MEDS: PANTOPRAZOLE SODIUM IV 40 MG VIAL IV PUSH (08:46)
[2023-03-25] MEDS: MINERAL OIL/WHITE PETROLATUM OINTMENT 1 APPLIC EACH EYE (08:46)
--- NOTE | 2023-03-25 08:49 | WPDCNINT ---
Assessment and Plan Assessment and plan (1) Acute intracranial hemorrhage: Code(s): I62.9 - Nontraumatic intracranial hemorrhage, unspecified Status: Acute Assessment and Plan: Patient had unequal pupils overnight, CT scan of the brain demonstrated 3.1 x 0.5 cm hyperdensity presumed hemorrhage within the parenchyma of the posterior left medial temporal lobe and sub insula -the night hospitalist contacted [facility] and the patient was accepted, will be transferred as I dictate this note -coags are within normal limits -not on any blood thinners at home (2) Acute hypercapnic respiratory failure: Code(s): J96.02 - Acute respiratory failure with hypercapnia Status: Acute Assessment and Plan: Acute hypercapnic respiratory failure likely related to pneumonia,/COPD exacerbation -started on cefepime, Flagyl and vanc -continue bronchodilators -chest x-ray and ABGs reviewed -BiPAP adjusted (3) Pneumonia: Code(s): J18.9 - Pneumonia, unspecified organism Status: Acute Assessment and Plan: As above (4) Sepsis: Code(s): A41.9 - Sepsis, unspecified organism Status: Acute Assessment and Plan: Patient presented with hypotension, likely related to pneumonia, was adequately fluid resuscitated with 4 L normal saline in the ER -blood pressures have remained stable -patient not on any pressors Plan DVT prophylaxis: SCDs Stress ulcer prophylaxis: Protonix Nutrition: NPO Code Status: Modified code, no CPR Critical Care Time Spent: 46 minutes Due to a high probability of clinically significant, life threatening deterioration, the patient required my highest level of preparedness to intervene emergently and I personally spent this critical care time directly and personally managing the patient. This critical care time included obtaining a history; examining the patient; pulse oximetry; ordering and review of studies; arranging urgent treatment with development of a management plan; evaluation of patient's response to treatment; frequent reassessment; and discussions with other providers. It was exclusive of separately billable procedures and treating other patients and teaching time. Please see Assessment and Plan section and the rest of the note for further information on patient assessment and treatment This dictation may have been done utilizing a voice recognition system. Attempts have been made to correct errors. However, there may be uncorrected grammatical, spelling, and recognitions errors present. Wire Walker Consult Note Consult date: 12/03/23 Reason for consult: Intracranial hemorrhage, pneumonia, sepsis, altered mental status HPI: Gabriela Aguayo is a 77 year old female past medical history of seizures, CHF, DVT, essential hypertension, COPD, GERD, dysphagia he status post G-tube in April 2022, moderate pulmonary hypertension presented the ED via EMS from [facility] due to being unresponsive, hypothermic, hypotension, received 4 L of IV fluids in the ER with a movement in the blood pressures. Patient was placed on BiPAP. Patient was started on empiric cefepime and vancomycin for pneumonia. Overnight patient's pupils 1 unequal with left pupil being slightly larger than the right. Pupils are dilated and sluggishly reactive, CT scan of the brain demonstrated 3.1 x 0.5 cm hyperdensity presumed hemorrhage within the parenchyma of the posterior left medial temporal lobe and subinsular. Lupe hospitalist contacted [facility] and was accepted and we transferred this morning. Patient seen and examined this morning in the ICU, remains on BiPAP, opens eyes to name, follows simple commands in all extremities. Not able to answer questions. Patient is hemodynamically stable, urine output has been adequate, afebrile Review of Systems Review of Systems: ROS unobtainable: Yes unobtainable due to medical condition PMFSH Past Medical History Medi
--- NOTE | 2023-03-25 09:11 | PC.NURSE ---
Air vac flight team present at bedside at 0855. Patient removed from ICU monitors at 0900 and placed on Air-vac monitoring devices for transport. RN currently at bedside monitoring patient.
== END 2023-03-25 09:24 | disposition short-term general hospital (02) | DRG 189 ==
LOC: ANHED 22:14 → ANHICU 23:53
PROVIDERS: Admitting Provider Internal Medicine; Emergency Provider Emergency Medicine; PCP Hospitalist; Visit Provider Internal Medicine
DX: J96.22 Acute and chronic respiratory failure with hypercapnia (principal); J69.0 Pneumonitis due to inhalation of food and vomit; A41.9 Sepsis, unspecified organism; I62.9 Nontraumatic intracranial hemorrhage, unspecified; J96.21 Acute and chronic respiratory failure with hypoxia; I27.20 Pulmonary hypertension, unspecified; I11.0 Hypertensive heart disease with heart failure; I95.9 Hypotension, unspecified; I50.9 Heart failure, unspecified; J43.9 Emphysema, unspecified; K21.9 Gastro-esophageal reflux disease without esophagitis; R13.10 Dysphagia, unspecified; R56.9 Unspecified convulsions; R68.0 Hypothermia, not associated with low environmental temperature; Z11.52 Encounter for screening for COVID-19; Z86.718 Personal history of other venous thrombosis and embolism; Z86.16 Personal history of COVID-19; Z93.1 Gastrostomy status; Z66 Do not resuscitate
CPT/HCPCS: 36415; 36600; 70450; 71045; 80053; 81001; 82375; 82805; 82948; 83036; 83050; 83605; 83735; 83880; 84145; 84484; 85025; 85610; 85730; 87040; 87077; 87086; 87186; 87637; 87641; 93005; 94002; 94003; 94640; 96361; 96365; 99285; A9270; C9113; J0692; J1836; J1953; J3370; J7030; P9047

== ENCOUNTER 2023-04-04 04:53 | Inpatient (IN) | payer MEDICARE, MEDICAID, SELFPAY ==
[2023-04-04] VITALS (116 sets, daily range): BP systolic 94–146; BP diastolic 58–93; PULSE 69–124; RESP 20–43; TEMP 36.1–37.1; O2SAT 84–100; BMI 21.7
--- NOTE | ~2023-04-04 | XR_ITS ---
XR chest 1V portable 04/08/2023 06:25 Indication: Respiratory failure Procedure: AP portable chest Comparison: Comparison to multiple prior studies sequentially, with oldest reviewed study dated 03/23. Findings: Endotracheal tube tip 1.1 cm above the selam. Recommend retraction approximately 2 cm. Car diomegaly. Unchanged bilateral pulmonary edema with pleural effusions. No pneumothorax. PICC line tip mass BC. Generalized osteopenia. No acute osseous abnormality. Impression: 1: Cardiomegaly with unchanged pulmonary edema. 2: Small pleural effusions. 3: Endotracheal tube tip 1.1 cm above the selam. Recommend retraction approximately 2 cm. Reviewed, dictated and finalized at location A. COOK Impression: 1: Cardiomegaly with unchanged pulmonary edema. 2: Small pleural effusions. 3: Endotracheal tube tip 1.1 cm above the selam. Recommend retraction approxim ately 2 cm.
--- NOTE | ~2023-04-04 | XR_ITS ---
Portable chest x-ray Comparison: 04/09/2023 Clinical History: Respiratory failure Findings: Right-sided PICC line remain in place. Small left pleural effusion present. There is probab le COPD and/or chronic interstitial change. Cardiomediastinal silhouette is stable. Bones and soft t issues are unremarkable. Impression: Small left pleural effusion. COPD and/or other chronic interstitial disease. Right-sided PICC line. Reviewed, dictated and finalized at location M. STEAMER Impression: Small left pleural effusion. COPD and/or other chronic interstitial disease. Right-sided PICC line.
--- NOTE | ~2023-04-04 | XR_ITS ---
XR chest 1V portable 04/07/2023 06:26 Indication: Respiratory failure Procedure: AP portable chest Comparison: Comparison to multiple prior studies sequentially, with oldest reviewed study dated 03/23. Findings: Stable bilateral airspace disease. Small pleural effusions. Stable cardiomediastinal silhou ette. Right subclavian PICC line tip in the SVC. Endotracheal tube tip 2.9 cm above the selam. Impression: 1: Cardiomegaly with stable bilateral airspace disease which may represent edema or pneumonia. 2: Small pleural effusions. Reviewed, dictated and finalized at location A. PITTER Impression: 1: Cardiomegaly with stable bilateral airspace disease which may represent eric a or pneumonia. 2: Small pleural effusions.
--- NOTE | ~2023-04-04 | XR_ITS ---
EXAMINATION: XR chest ET placement DATE: 04/05/2023 13:38 INDICATION: Intubation. Central line placement. TECHNIQUE: A single frontal view of the chest was obtained. COMPARISON: Chest single view at 10:04 AM, chest CT 01/31/2023 FINDINGS: The patient is rotated to her right. There are lucencies and interstitial opacities in the lungs, consistent with emphysema. There are airspace opacities in the lower lung zones. There are sma ll pleural effusions. No pneumothorax. The heart size is normal. The endotracheal tube tip is 2.4 cm above the selam. A right upper extremity peripherally inserted central venous catheter (PICC) is see n with tip in the superior vena cava. There is a filter in the inferior vena cava. The nasogastric tu be tip is beyond the inferior margin of the radiograph, but at least to the stomach. IMPRESSION: 1. Central line tip in superior vena cava. 2. Stable airspace opacities in the lower lung zones, consistent with atelectasis versus pneumonia. 3. Stable small pleural effusions. 4. Severe emphysema. Reviewed, dictated and finalized at location A. Y GRINDER IMPRESSION: 1. Central line tip in superior vena cava. 2. Stable airspace opacities in the lower lung zones, consistent with atelectas is versus pneumonia. 3. Stable small pleural effusions. 4. Severe emphysema.
--- NOTE | ~2023-04-04 | XR_ITS ---
EXAMINATION: XR chest 1V portable INDICATION: Shortness of breath TECHNIQUE: Portable AP chest at 1009 hours COMPARISON: 04/04/2023 FINDINGS: There are small pleural effusions. Diffuse interstitial opacities persist but have improved . There are also improving airspace opacities of the lung bases. No pneumothorax is identified. The c ardiomediastinal silhouette is stable. IMPRESSION: 1. Diffuse lung disease with interval improvement, consistent with pneumonia and/or pulmonary edema. 2. Small pleural effusions. 3. Improving bibasilar airspace opacities, consistent with atelectasis versus pneumonia. Reviewed, dictated and finalized at location L. ALT ROLLER OPERATOR IMPRESSION: 1. Diffuse lung disease with interval improvement, consistent with pneumonia an d/or pulmonary edema. 2. Small pleural effusions. 3. Improving bibasilar airspace opacities, consistent with atelectasis versus p neumonia.
--- NOTE | ~2023-04-04 | XR_ITS ---
EXAMINATION: XR abdomen gastric tube insert DATE: 04/05/2023 13:39 INDICATION: Nasogastric tube placement. TECHNIQUE: A semierect view of the abdomen was obtained. COMPARISON: Abdomen radiograph 03/03/2023 FINDINGS: The lower abdomen and right lateral aspect of the abdomen are excluded. The nasogastric tub e tip is in the stomach. There is a filter in the inferior vena cava. A right upper extremity periphe rally inserted central venous catheter (PICC) is seen with tip in the superior vena cava. The endotra cheal tube tip is 2.2 cm above the selam. IMPRESSION: 1. Nasogastric tube tip in the stomach. Reviewed, dictated and finalized at location A. CTOR DESIGN
--- NOTE | ~2023-04-04 | XR_ITS ---
Portable chest x-ray Comparison: 04/05/2023 Clinical History: Respiratory failure Findings: Endotracheal tube, NG tube, and right-sided PICC line are in place. Small bilateral pleura l effusions are present with probable mild pulmonary edema at the lung bases. Underlying COPD present . Cardiomediastinal silhouette is stable. Bones and soft tissues are unremarkable. Impression: Small bilateral pleural effusions with probable mild bibasilar pulmonary edema/atelectasis. Underlying severe COPD. Support tubes, as above. Reviewed, dictated and finalized at location M. R CONTROL STATION ENGINEER Impression: Small bilateral pleural effusions with probable mild bibasilar pulmonary edema/ atelectasis. Underlying severe COPD. Support tubes, as above.
--- NOTE | ~2023-04-04 | XR_ITS ---
Portable chest x-ray Comparison: 03/24/2023 Clinical History: Shortness of breath Findings: Small bilateral pleural effusions are present, with hazy bibasilar airspace disease. There is probable underlying COPD and/or chronic interstitial change. Cardiomediastinal silhouette is sta ble. Bones and soft tissues are unremarkable. Impression: Small bilateral pleural effusions with probable minimal bibasilar pulmonary edema/atelectasis. Underlying probable COPD or other chronic interstitial disease. Reviewed, dictated and finalized at location . HER ASSOCIATE Impression: Small bilateral pleural effusions with probable minimal bibasilar pulmonary musa ma/atelectasis. Underlying probable COPD or other chronic interstitial disease.
--- NOTE | ~2023-04-04 | XR_ITS ---
Portable chest x-ray Comparison: 04/08/2023 Clinical History: Respiratory failure Findings: Stable right-sided PICC line. Probable small left pleural effusion present. Probable advan lorenzo COPD. Cardiomediastinal silhouette is stable. Bones and soft tissues are unremarkable. Impression: Small left pleural effusion. Advanced COPD. Right-sided PICC line. Reviewed, dictated and finalized at location . Y PACKER Impression: Small left pleural effusion. Advanced COPD. Right-sided PICC line.
--- NOTE | 2023-04-04 05:02 | ECG_ITS ---
Measurements Intervals [place] Rate: 106 P: 61 MA: 159 QRS: 19 QRSD: 73 T: 32 QT: 338 QTc: 449 Interpretive Statements SINUS TACHYCARDIA WITH OCCASIONAL ECTOPIC PREMATURE COMPLEXES NONSPECIFIC ST ABNORMALITY ABNORMAL ECG COMPARED TO ECG 03/24/2023 23:00:39 ST (T WAVE) DEVIATION NOW PRESENT Electronically Signed On 04-04-2023 10:39:47 RESEARCH BIOSTATISTICIAN by Jakub Haider M.D.
--- NOTE | 2023-04-04 05:05 | ED.SOB ---
HPI - SOB/Dyspnea General Chief Complaint: Shortness of Breath/Dyspnea Stated Complaint: RESP DISTRESS Time Seen by Provider: 04/04/23 05:00 History of Present Illness HPI Narrative: patient brought to the emergency department from nursing facility with respiratory distress. She has chronic respiratory difficulties. Was recently admitted to the hospital and intubated 2 weeks. Transfer out to [facility]. Is concern for aspiration pneumonia and meningitis. Patient was transferred to the rehab facility yesterday. Tonight she is showing signs of increased shortness of breath with tachypnea. Put on a non-rebreather by EMS. Patient is drowsy but opens her eyes and answers basic questions. Related Data Home Medications Medication Instructions Recorded Confirmed acetaminophen 325 mg capsule 650 mg PO Q6H PRN Pain 07/17/22 03/25/23 amlodipine 10 mg tablet 10 mg PO DAILY 07/17/22 03/25/23 famotidine 20 mg tablet 20 mg PO BID 07/17/22 03/25/23 hydrochlorothiazide 25 mg tablet 25 mg PO DAILY 07/17/22 03/25/23 ipratropium 0.5 mg-albuterol 3 mg 1 ml inhalation Q6H PRN Shortness 07/17/22 03/25/23 (2.5 mg base)/3 mL nebulization Of Breath soln levetiracetam 750 mg tablet 750 mg PO Q12H 07/17/22 03/25/23 losartan 50 mg tablet 50 mg PO DAILY 07/17/22 03/25/23 mirtazapine 7.5 mg tablet 7.5 mg PO HS 07/17/22 03/25/23 Lactobacillus acidophilus 10 mg PO DAILY 01/27/23 03/25/23 (Acidophilus capsule) ondansetron 4 mg disintegrating 4 mg PO Q6H PRN Nausea 01/27/23 03/25/23 tablet albuterol sulfate 2.5 mg/3 mL 2.5 mg inhalation Q6H 03/25/23 03/25/23 (0.083 %) solution for nebulization atropine 1 % eye drops 1 drp EACH EYE QID 03/25/23 03/25/23 zinc oxide 1 applic topical Q12H 03/25/23 03/25/23 Allergies Allergy/AdvReac Type Severity Reaction Status Date / Time heparin (porcine) Allergy Unknown Verified 12/30/22 02:45 Review of Systems Review of Systems: Unable to obtain due to patient's status [facility] Past Medical History Medical History (Updated 04/04/23 @ 07:42 by Josette Kimble MD) COPD with emphysema Diastolic dysfunction Echocardiogram 01/2023: EF greater than 70%, grade 1 diastolic dysfunction, mild left atrial enlargement, mild tricuspid regurgitation, moderate pulmonary hypertension, pleural effusion seen DVT (deep venous thrombosis) Dysphagia Essential hypertension GERD (gastroesophageal reflux disease) Moderate pulmonary hypertension Seizures Surgical History Surgical History (Updated 03/25/23 @ 02:10 by Holli Camara DO) Gastrointestinal tube present Family History Family History Other Unknown family medical history Social History Social History (Updated 03/25/23 @ 02:41 by Holli Camara DO) Social History: Patient is currently residing at [facility]. Patient has a daughter and a son. Code status: No CPR Smoking status: Unknown if ever smoked Alcohol intake: unknown Substance use: unknown Spiritual care concerns: No Exam Narrative: GENERAL: cachetic, and shallow respirations HEAD: Normocephalic, atraumatic. EYES: not examined ENT: Nares clear, no rhinorrhea or epistaxis. Mucous membranes moist. NECK: Supple. CHEST: Clear to auscultation. No respiratory distress - tachypneic HEART: tachycardia ABDOMEN: Soft, nontender, nondistended. EXTREMITIES: No edema. SKIN: Warm, dry, no rash. NEURO: generally weak Alert and oriented 1. PSYCH: Normal mood and affect. Course Vital Signs Vital signs: Vital Signs Temperature 36.7 C 04/04/23 04:53 Pulse Rate 107 H 04/04/23 04:53 Respiratory Rate 34 H 04/04/23 04:53 Blood Pressure 100/75 04/04/23 04:53 Pulse Oximetry 100 04/04/23 04:53 Oxygen Delivery Non-Rebreather Mask 04/04/23 04:53 Oxygen Flow Rate 15 04/04/23 04:53 Temperature 36.7 C 04/04/23 04:53 Pulse Rate 96 04/04/23
[2023-04-04 05:16] LABS: Basophils Percent Auto 0.2 % (0.2-1.2); Eosinophils Percent Auto 0.3 % (0-4.4); Hemoglobin 9.3 g/dL (12.0-15.0); Immature Granulocyte Absolute 0.05 K/mm3 (0.00-0.031); Immature Granulocyte Percent A 0.6 % (0-0.5); Lymphocytes Absolute Auto 1.51 K/mm3 (0.9-3.2); Lymphocytes Percent Auto 17.2 % (18.3-44.2); Mean Corpuscular HGB Conc 29.1 g/dl (32-36); Mean Corpuscular Hemoglobin 27.8 pg (26-34); Mean Corpuscular Volume 95.8 fl (80-100); Mean Platelet Volume 9.2 fl (7.4-10.4); Monocytes Absolute Auto 0.8 K/mm3 (0.1-0.6); Neutrophils Absolute Auto 6.4 K/mm3 (1.3-6.7); Neutrophils Percent Auto 72.7 % (45.5-73.1); Platelet Count Result 436 k/mm3 (150-375); Red Blood Count 3.34 M/mm3 (4.2-5.4); Red Cell Distribution Width 17.9 % (11.5-14.5); White Blood Count 8.8 K/mm3 (4.5-10.0)
[2023-04-04 05:21] LABS: Alveolar/Arterial O2 Gradient 34.4 mmHg; Base Excess ABG 9.5 mEq/l (+/-2.0); Fractional Inspired Oxygen 21 %; HCO3 ABG 34.9 mEq/l (22.0-26.0); Oxygen Content ABG 11.4 %vol (16.0-22.0); PCO2 ABG 52.6 mmHg (35.0-45.0); PO2 ABG 52.3 mmHg (80.0-100.0); PO2 FiO2 Ratio Arterial Blood 2.49 %; Total Hemoglobin 9.8 g/dL (12.0-18.0)
[2023-04-04 05:22] LABS: Oxygen Saturation ABG 87.6 % (95.0-100.0)
[2023-04-04 05:23] LABS: Device ROOM AIR; Oxyhemoglobin 82.4 % THb (90.0-100.0); Site Drawn RIGHT BRACHIAL
[2023-04-04 05:28] LABS: Lactic Acid Reflex 1.2 mmol/L (0.7-2.0)
[2023-04-04 05:29] LABS: Alanine Aminotransferase 13 U/L (6-35); Albumin Level 3.5 g/dL (3.5-5.1); Alkaline Phosphatase 92 U/L (38-126); Anion Gap 6 mmol/L (8-16); Aspartate Amino Transferase 21 U/L (14-36); Bilirubin,Total 0.7 mg/dL (0.2-1.3); Blood Urea Nitrogen 22 mg/dL (7-17); Calcium 9.2 mg/dL (8.4-10.2); Carbon Dioxide 36 mmol/L (22-30); Chloride 102 mmol/L (98-107); Estimated Glomerular Filt Rate > 60; Glucose 161 mg/dL (65-110); Potassium 4.4 mmol/L (3.4-5.0); Sodium 144 mmol/L (137-145)
[2023-04-04 05:40] LABS: Anisocytosis 1+ (NORMAL); Hypochromasia 1+ (NORMAL); Large Platelets Present; NT Pro B Type Natriuretic Pept 190 pg/mL (19.9-100); Schistocytes Rare (NORMAL); Troponin I < 0.012 ng/mL (0.000-0.034)
--- NOTE | 2023-04-04 07:20 | PC.NURSE ---
report from material handler 2nd shift rn. pt resting on stretcher with no distress. pt on bipap and tolerating well. waiting bed assignment.
--- NOTE | 2023-04-04 07:30 | PC.NURSE ---
pt resting comfortably on stretcher. cardizem infusing without difficulty. family remains at bedside. waiting bed placement.
[2023-04-04 08:00] LABS: Troponin I < 0.012 ng/mL (0.000-0.034)
[2023-04-04] MEDS: FUROSEMIDE INJ 40 MG/4 ML VIAL IV PUSH (08:52)
--- NOTE | 2023-04-04 12:14 | PC.NURSE ---
attempted to contact [facility] for pts med list. no answer after multiple attempts.
[2023-04-04 16:13] LABS: Alveolar/Arterial O2 Gradient 87.2 mmHg; Base Excess ABG 11.8 mEq/l (+/-2.0); Fractional Inspired Oxygen 30 %; HCO3 ABG 36.1 mEq/l (22.0-26.0); Oxygen Content ABG 14.3 %vol (16.0-22.0); Oxygen Saturation ABG 95.8 % (95.0-100.0); Oxyhemoglobin 93.1 % THb (90.0-100.0); PCO2 ABG 45.7 mmHg (35.0-45.0); PO2 FiO2 Ratio Arterial Blood 2.43 %; Total Hemoglobin 10.9 g/dL (12.0-18.0)
[2023-04-04 16:14] LABS: Device NON-INVASIVE VENT; Modified Allen's Test Pass; Non-Invasive Expiratory Pressure 6 CMH2O; Non-Invasive Inspiratory Pressure 12 CMH2O; Non-Invasive Vent Rate 16 /MIN; Site Drawn RIGHT RADIAL; pH ABG 7.515 (7.350-7.450)
--- NOTE | 2023-04-04 17:50 | PM.IMHP ---
H&P: HPI History of Present Illness Date/Time: 04/04/23 17:50 Chief Complaint: Respiratory Distress Narrative: 77 y/o F presented here with respiratory distress with PMH of CVA (R sided deficits), COPD, diastolic dysfunction, DVT, HTN, GERD, pulmonary hypertension, seizures, CHF, multiple intubations, and aspiration PNA. Patient is unable to provide any history due to current alteration/distress, subsequently all history is obtained from review of past medical records and ED provider report.??Patient presented here from [facility] via EMS for respiratory distress. Recently discharged to [facility] (04/03) likely after recent admission to [facility], transferred from [facility]. Last seen here on 03/24 for unresponsiveness, pallor, severe acidosis, hypotension, hypothermia, and hypoxia. later developed anisocoria with left pupil slightly larger than the right, sluggish but reactive. CT showed 3.1 x 0.5 cm hyperdensity presumed hemorrhage within the parenchyma of the posterior left medial temporal lobe and sub insula. family was informed of findings and wanted patient to be intubated and verbalized understanding that tracheostomy may be placed. Patient was then transferred to [facility]. No available records of admission at [facility]. Unclear baseline post admission. Last documented neuro exam prior to 03/24 on 03/03 - A/Ox3 with R sided deficits from previous CVA. currently remains somnolent, tachypneic, tachycardic. Requiring BiPAP support. ED workup revealed stable anemia, abnormal ABG, creatinine at baseline, normal lactic, BNP 190. CXR shows small bilateral pleural effusions with minimal bibasilar pulmonary edema/atelectasis, underlying probable COPD or other chronic interstitial disease. Review of Systems Review of Systems: ROS unobtainable: Yes unobtainable due to mental status [facility] Past Medical History Medical History (Updated 04/04/23 @ 21:58 by Radha Yu, MONOGRAM TECHNICIAN) Acute intracranial hemorrhage 03/25/23 - transferred to [facility] Anemia COPD (chronic obstructive pulmonary disease) Diastolic dysfunction Echocardiogram 01/2023: EF greater than 70%, grade 1 diastolic dysfunction, mild left atrial enlargement, mild tricuspid regurgitation, moderate pulmonary hypertension, pleural effusion seen DVT (deep venous thrombosis) Dysphagia GERD (gastroesophageal reflux disease) HTN (hypertension) Moderate pulmonary hypertension Seizures Surgical History Surgical History Gastrointestinal tube present Family History Family History Other Unknown family medical history Social History Social History Social History: Patient is currently residing at [facility]. Patient has a daughter and a son. Code status: No CPR Smoking status: Unknown if ever smoked Alcohol intake: unknown Substance use: unknown Spiritual care concerns: No Meds Home Medications and Allergies Home Medications Medication Instructions Recorded Confirmed Type acetaminophen 500 mg tablet 500 mg feeding tube Q4-5H PRN Pain 04/04/23 04/04/23 History amlodipine 10 mg tablet 10 mg feeding tube DAILY 04/04/23 04/04/23 History bisacodyl 10 mg rectal suppository 10 mg RECTAL DAILY PRN Constipation 04/04/23 04/04/23 History budesonide-formoterol HFA 80 2 puff inhalation Q12H 04/04/23 04/04/23 History mcg-4.5 mcg/actuation aerosol inhaler carboxymethylcellulose sodium 1 % 2 drp EACH EYE TID PRN Dry Eyes 04/04/23 04/04/23 History eye liquid gel drops diclofenac sodium 1 % topical gel 2 g topical QID 04/04/23 04/04/23 History docusate sodium 50 mg/5 mL oral 100 mg feeding tube BID 04/04/23 04/04/23 History liquid enoxaparin 40 mg/0.4 mL 40 mg subcut DAILY 04/04/23 04/04/23 History subcutaneous s
[2023-04-04 18:03] LABS: D Dimer 1.64 ug/mL (<0.48)
--- NOTE | 2023-04-04 18:07 | ADMGEN ---
This patient, Gabriela Aguayo, was admitted to IMU Room 204-01. Patient/family oriented to hospital policies and general routines including ID bracelet, bed and alarms, visiting hours, pain management, procedures, bathroom and other care routines, personal items, smoking policy, room service/diet, and visiting hours. Information on how to activate the Rapid Response Team has been discussed. Patient/Family are encouraged to report perceived risks to care and to ask questions if they do not understand what they are told or what they should do.
[2023-04-04 22:47] LABS: Influenza A QL RT-PCR Negative (Negative); Influenza B QL RT-PCR Negative (Negative); RSV RNA, RT-PCR Negative (Negative); SARS-CoV-2 RNA PCR Negative (Negative)
[2023-04-04 23:08] LABS: Base Excess ABG 9.9 mEq/l (+/-2.0); Fractional Inspired Oxygen 40 %; HCO3 ABG 36.8 mEq/l (22.0-26.0); Oxygen Content ABG 16.9 %vol (16.0-22.0); Oxygen Saturation ABG 97.9 % (95.0-100.0); Oxyhemoglobin 96.8 % THb (90.0-100.0); PO2 ABG 109.3 mmHg (80.0-100.0); PO2 FiO2 Ratio Arterial Blood 2.73 %; Total Hemoglobin 12.3 g/dL (12.0-18.0)
[2023-04-04 23:10] LABS: PCO2 ABG 60.8 mmHg (35.0-45.0)
[2023-04-04 23:11] LABS: Device NASAL CANNULA; Modified Allen's Test Pass; Site Drawn LEFT RADIAL
[2023-04-04 23:29] LABS: Glucose Point of Care 108 mg/dl (65-105)
[2023-04-05] VITALS (37 sets, daily range): BP systolic 64–128; BP diastolic 53–76; PULSE 74–138; RESP 20–47; TEMP 36.5–37.2; O2SAT 91–100; BMI 21.8
[2023-04-05] MEDS: SODIUM CHLORIDE 0.9% IV 250 ML 100 ML IV CONT ×2 (00:17→14:14)
[2023-04-05] MEDS: levETIRAcetam ORAL SOL 500 MG/5 ML UDC 750 MG FEED TUBE ×3 (00:17→21:54)
[2023-04-05 04:18] LABS: Glucose Point of Care 111 mg/dl (65-105)
[2023-04-05 05:33] LABS: Basophils Percent Auto 0.3 % (0.2-1.2); Eosinophils Percent Auto 0.3 % (0-4.4); Hematocrit 32.4 % (37.0-47.0); Hemoglobin 9.4 g/dL (12.0-15.0); Immature Granulocyte Absolute 0.07 K/mm3 (0.00-0.031); Immature Granulocyte Percent A 0.6 % (0-0.5); Lymphocytes Absolute Auto 1.17 K/mm3 (0.9-3.2); Lymphocytes Percent Auto 10.1 % (18.3-44.2); Mean Corpuscular Hemoglobin 28.1 pg (26-34); Mean Platelet Volume 9.7 fl (7.4-10.4); Monocytes Absolute Auto 1.1 K/mm3 (0.1-0.6); Monocytes Percent Auto 9.2 % (2.6-8.5); Neutrophils Absolute Auto 9.2 K/mm3 (1.3-6.7); Neutrophils Percent Auto 79.5 % (45.5-73.1); Platelet Count Result 497 k/mm3 (150-375); Red Blood Count 3.34 M/mm3 (4.2-5.4); Red Cell Distribution Width 18.1 % (11.5-14.5); White Blood Count 11.6 K/mm3 (4.5-10.0)
[2023-04-05 05:51] LABS: Alanine Aminotransferase 13 U/L (6-35); Albumin Level 3.8 g/dL (3.5-5.1); Alkaline Phosphatase 91 U/L (38-126); Anion Gap 6 mmol/L (8-16); Aspartate Amino Transferase 27 U/L (14-36); Bilirubin,Total 1.2 mg/dL (0.2-1.3); Blood Urea Nitrogen 28 mg/dL (7-17); Calcium 9.3 mg/dL (8.4-10.2); Carbon Dioxide 34 mmol/L (22-30); Chloride 105 mmol/L (98-107); Estimated CRCL calculation 85 ml/min; Estimated Glomerular Filt Rate > 60; Glucose 106 mg/dL (65-110); Magnesium 2.4 mg/dL (1.6-2.3); Phosphorus 3.6 mg/dL (2.5-4.5); Potassium 4.2 mmol/L (3.4-5.0); Sodium 145 mmol/L (137-145)
--- NOTE | 2023-04-05 08:48 | PM.IMPN ---
Progress Note: A&P Assessment and Plan (1) Acute respiratory failure with hypoxia and hypercapnia: Code(s): J96.01 - Acute respiratory failure with hypoxia; J96.02 - Acute respiratory failure with hypercapnia Status: Acute Assessment and Plan: Placed on BiPAP, tolerated well. trending ABGs - reduction in CO2, increase in O2, bicarb up trending, O2 saturation improved. CXR showing small bilateral pleural effusions with probable minimal bibasilar pulmonary edema/atelectasis. Underlying probable COPD or other chronic interstitial disease. due to persistent tachycardia and tachypnea, D-dimer assessed and 1.64. when cutoff adjusted for age, VTE unlikely. Adding UA with reflex and viral PCR to assess for infectious etiologies. remains mildly tachycardiac, will add 250 mL of NS at 100 mL/hr. ordered home inhalers - budesonide-formoterol and ipratropium-albuterol. 04/05: worsening, suspect multifactorial aspect of pulm HTN, COPD, HF, give lasix 40 mg IV, risk of intubation discussed extensively with family at bedside, pulm and crit care aware, monitor closely, continue BIPAP for now (2) Somnolence: Code(s): R40.0 - Somnolence Status: Acute Assessment and Plan: Patient hypercarbic at arrival, 52.6 on ABG. placed on BiPAP, improvement in CO2. Currently 45.7 on ABG. WBC 8.8. Adding viral swab and UA w/reflex. now more awake and attempting to answer questions. able to report her name is Gabriela, no other information provided or answered. neuro checks QShift. Communication to RN to request records from [facility] ordered to assist with obtaining information about patient's baseline. 04/05: improving (3) Dysphagia: Code(s): R13.10 - Dysphagia, unspecified Status: Acute Assessment and Plan: consult parts assembler for assistance with TPN. G-Tube in place, appears patient has previously attempted PO and it has resulted in aspiration pna. Last documented nutritional assessment on 02/20/23 - on Jevity 1.5 @ 55ml/hr with 150ml flushes q 6 hours. Provides 1815 kcal, 77 g protein, 920 ml free water. 1520 ml total water. per TPN protocol: added PTT, transferrin, phos daily, and triglycerides Q48H. Per chart review, family had previously identified discontinuation of scopolamine (insurance reasons) as possible causes for nausea and subsequent aspiration pneumonia. Will continue. 04/05: cont tube feeds (4) HTN (hypertension): Code(s): I10 - Essential (primary) hypertension Status: Acute Assessment and Plan: hold home BP medications, pressure soft. monitor daily for ability to resume. Blood pressures reviewed 04/05 Plan Home Meds/Chronic Conditions - constipation: Continue Mag citrate, milk of magnesia, docusate, bisacodyl. Held Fleet enema. - seizures: continue home Keppra. - continued on Remeron. Diet: TPN, NPO GI Prophylaxis: continued on home famotidine DVT Prophylaxis: continued on home enoxaparin, SCDs Lines: pIV Code Status: Modified Code, NO CPR Subjective Date/time seen: 04/05/23 08:48 Interval history: 77-year-old female with history of CVA with residual right-sided deficits, COPD, heart failure, GERD, pulmonary hypertension among other comorbidities as well as multiple intubations is presenting with respiratory failure. No overnight events noted. No chest pain or shortness of breath. No nausea, vomiting or diarrhea. No fevers or chills. Review of Systems Review of Systems: 12 point review of systems was assessed and was negative except as noted in the HPI Exam Narrative: General: Acute resp distress, somewhat confused HEENT: Atraumatic, normocephalic, mucous membranes moist CV: Tachycardic, S1, S2 Lungs: Extremely diminished throughout, no wheeze, faint crackles at bases Abdomen: Soft, nontender, nondistended Extremities: Normal to inspection Skin: No rashes noted, no lesions or wounds seen Objective Data Vital Signs Vital Sig
[2023-04-05] MEDS: FAMOTIDINE 20 MG TABLET FEED TUBE ×2 (09:13→20:18)
[2023-04-05] MEDS: MIRTAZAPINE 7.5 MG TABLET FEED TUBE (09:13)
[2023-04-05] MEDS: DOCUSATE SODIUM LIQ 100 MG/10 ML UDC FEED TUBE ×2 (09:14→17:31)
[2023-04-05] MEDS: DICLOFENAC SODIUM 1% 100 GM GEL (*BKC) 1 APPLIC TOPICAL ×3 (09:14→20:18)
[2023-04-05] MEDS: ENOXAPARIN 40 MG/0.4 ML SYRINGE SUB-Q (09:14)
[2023-04-05] MEDS: ALBUTEROL SULFATE NEB 2.5 MG/3 ML INH 3 MG INHALATION ×2 (09:33→13:46)
[2023-04-05] MEDS: IPRATROPIUM BR 0.02% INH SOLN 0.5 MG/2.5 ML VIAL INHALATION ×3 (09:33→20:09)
[2023-04-05] MEDS: LEVALBUTEROL NEB 1.25 MG/3 ML 10 MG INHALATION (10:11)
[2023-04-05 10:51] LABS: Alveolar/Arterial O2 Gradient 98.8 mmHg; Base Excess ABG 3.2 mEq/l (+/-2.0); Carboxyhemoglobin 0.1 % THb (0-2.0); Fractional Inspired Oxygen 30 %; HCO3 ABG 28.5 mEq/l (22.0-26.0); Methemoglobin ABG 0.1 %THb (0-1.5); Oxygen Content ABG 13.7 %vol (16.0-22.0); Oxygen Saturation ABG 91.1 % (95.0-100.0); Oxyhemoglobin 88.1 % THb (90.0-100.0); PCO2 ABG 46.5 mmHg (35.0-45.0); PO2 ABG 60.5 mmHg (80.0-100.0); PO2 FiO2 Ratio Arterial Blood 2.02 %; Reduced Hemoglobin 11.7 %THb (0-5.0); pH ABG 7.405 (7.350-7.450)
[2023-04-05 10:52] LABS: Device NON-INVASIVE VENT; Site Drawn LEFT BRACHIAL
[2023-04-05 10:53] LABS: Non-Invasive Expiratory Pressure 6 CMH2O; Non-Invasive Inspiratory Pressure 16 CMH2O; Non-Invasive Vent Rate 20 /MIN
[2023-04-05] MEDS: FUROSEMIDE INJ 40 MG/4 ML VIAL IV PUSH (11:47)
--- NOTE | 2023-04-05 12:19 | WPDPROCEDUR ---
Procedures Intubation Intubation Date: 04/05/23 Intubation Time: 12:10 Consent: Consent was obtained from patient's daughter by phone earlier by staff regarding intubation. A pre-procedural Time-Out was completed immediately before starting the procedure and confirmed: Patient Identification, Site, Procedure, Patient Position and the Availability of Requisite Equipment: Yes Sedative: etomidate Mg given: 20 Paralytic: succinylcholine Mg given: 60 Laryngoscope: fiber optic video scope Assist device used: fiber optic device ET tube size: cuffed Tube secured depth (cm): 23 Tube secured location: lips Tube placement confirmation: visualized tube passing through cords, equal breath sounds bilaterally, no breath sounds over epigastrium and confirmation by capnometry Patient tolerated procedure: well Intubation complications: none
[2023-04-05] MEDS: dexmedeTOMIDine 400 MCG/100 ML 400 MCG/100 ML BAG IV CONT (12:32)
--- NOTE | 2023-04-05 12:35 | WPDCNINT ---
Assessment and Plan Assessment and plan (1) Acute on chronic respiratory failure with hypoxia and hypercapnia: Code(s): J96.21 - Acute and chronic respiratory failure with hypoxia; J96.22 - Acute and chronic respiratory failure with hypercapnia Status: Acute Assessment and Plan: Multifactorial secondary to severe COPD, deconditioning, congestive heart failure, pulmonary hypertension Most recent chest x-ray showed IMPRESSION: 1. Diffuse lung disease with interval improvement, consistent with pneumonia and/or pulmonary edema. 2. Small pleural effusions. 3. Improving bibasilar airspace opacities, consistent with atelectasis versus pneumonia Patient failed BiPAP therapy and now intubated and placed on mechanical ventilation Vent settings reviewed. Repeat ABG and chest x-ray pending Continue steroids but decrease dose Continue bronchodilators Patient was started on broad-spectrum antibiotic therapy although it does not appear to be in pneumonia Patient has already received diuretics. Will hold further her hemodynamics have stabilized Her WBC barely elevated and she is afebrile. She was recently discharged from the hospital. Pneumonia unlikely but still possible Cultures have been ordered Had influenza COVID and RSV are negative (2) Moderate pulmonary hypertension: Code(s): I27.20 - Pulmonary hypertension, unspecified Status: Acute Assessment and Plan: See above (3) Pneumonia: Qualifiers: Laterality: bilateral Lung location: unspecified part of lung Pneumonia type: due to unspecified organism Qualified Code(s): J18.9 - Pneumonia, unspecified organism Code(s): J18.9 - Pneumonia, unspecified organism Status: Acute Assessment and Plan: See above (4) COPD (chronic obstructive pulmonary disease): Code(s): J44.9 - Chronic obstructive pulmonary disease, unspecified Status: Acute Assessment and Plan: See above (5) Dysphagia: Code(s): R13.10 - Dysphagia, unspecified Status: Acute Assessment and Plan: She has PEG tube and tube feeds will be resumed (6) Seizures: Code(s): R56.9 - Unspecified convulsions Status: Acute Assessment and Plan: Continue Keppra Plan DVT prophylaxis -Lovenox Stress ulcer prophylaxis -Pepcid Nutrition -start tube feeds Code Status -patient's code status is DNR with no CPR as per patient's daughter Total Critical Care Time - 35 minutes Due to a high probability of clinically significant, life threatening deterioration, the patient required my highest level of preparedness to intervene emergently and I personally spent this critical care time directly and personally managing the patient. This critical care time included obtaining a history; examining the patient; pulse oximetry; ordering and review of studies; arranging urgent treatment with development of a management plan; evaluation of patient's response to treatment; frequent reassessment; and discussions with other providers. It was exclusive of separately billable procedures and treating other patients and teaching time. Please see Assessment and Plan section and the rest of the note for further information on patient assessment and treatment Clearing Supervisor Consult Note Consult date: 04/05/23 Reason for consult: Acute respiratory failure HPI: Gabriela Aguayo is a 77 year old female with past medical history of seizures, CHF, DVT, essential hypertension, COPD, GERD, dysphagia he status post G-tube in April 2022, moderate pulmonary hypertension presented the ED history of multiple admissions and multiple intubations in the past and a resident of a longterm was readmitted yesterday from ER with respiratory distress. Patient was unable to provide any meaningful history and was placed on BiPAP. Patient was found to be having hypoxia and respiratory acidosis from hypercarbia. Patient was started on diuretics steroids and bronchodilators
[2023-04-05] MEDS: LIDOCAINE HCL 1% PF INJ 5 ML VIAL INFILTRATE (12:50)
--- NOTE | 2023-04-05 13:04 | PM.CNCAR ---
Assessment and Plan Assessment and plan (1) Acute on chronic respiratory failure with hypoxia and hypercapnia: Code(s): J96.21 - Acute and chronic respiratory failure with hypoxia; J96.22 - Acute and chronic respiratory failure with hypercapnia Status: Acute Assessment and Plan: Multifactorial due to COPD, CHF, pHTN, ? pneumonia. Now mechanically ventilated. On abx and steroids. Management per critical care. (2) Pleural effusion: Code(s): J90 - Pleural effusion, not elsewhere classified Status: Acute Assessment and Plan: She has been given one dose of furosemide, but is now ventilated. Can continue with IV furosemide as needed. History of Present Illness History of Present Illness Consult date/time: 04/05/23 13:04 Requesting physician: Maryanne Garcia DO Consult reason: congestive heart failure Reason For Visit: resp distress Narrative: Gabriela Aguayo is a 77 year old longterm resident with a history of seizures, CHF, DVT, hypertension, COPD, GERD, dysphagia (status post G-tube in April 2022), and moderate pulmonary hypertension hospitalized with respiratory distress. At the time of my encounter with her she is intubated so this history has been obtained from the medical record. Patient presented here from [facility] via EMS for respiratory distress. Recently discharged to [facility] (04/03) likely after recent transfer to [facility] from [facility] for Neurosurgery services because of intracranial hemorrhage.? Last seen here on 03/24 for unresponsiveness, pallor, severe acidosis, hypotension, hypothermia, and hypoxia.? Upon arrival to ED here, patient was unable to provide any meaningful history and was placed on BiPAP.? Patient was found to be having hypoxia and respiratory acidosis from hypercarbia.? Patient was started on diuretics steroids and bronchodilators.? Later broad-spectrum antibiotics were added.? Despite BiPAP patient remained tachypneic low tidal volumes and high respiratory rate in 40s?and was therefore intubated. Cardiology is being asked to see her because of heart failure. Review of Systems Review of Systems: ROS unobtainable: Yes unobtainable due to endotracheal tube PMFSH Past Medical History Medical History Acute intracranial hemorrhage 03/25/23 - transferred to [facility] Anemia COPD (chronic obstructive pulmonary disease) Diastolic dysfunction Echocardiogram 01/2023: EF greater than 70%, grade 1 diastolic dysfunction, mild left atrial enlargement, mild tricuspid regurgitation, moderate pulmonary hypertension, pleural effusion seen DVT (deep venous thrombosis) Dysphagia GERD (gastroesophageal reflux disease) HTN (hypertension) Moderate pulmonary hypertension Seizures Surgical History Surgical History Gastrointestinal tube present Family History Family History Other Unknown family medical history Social History Social History Social History: Patient is currently residing at [facility] and [facility]. Patient has a daughter and a son. Code status: No CPR Smoking status: Unknown if ever smoked Alcohol intake: unknown Substance use: unknown Spiritual care concerns: No Meds Home Medications and Allergies Home Medications Medication Instructions Recorded Confirmed Type acetaminophen 500 mg tablet 500 mg feeding tube Q4-5H PRN Pain 04/04/23 04/04/23 History amlodipine 10 mg tablet 10 mg feeding tube DAILY 04/04/23 04/04/23 History bisacodyl 10 mg rectal suppository 10 mg RECTAL DAILY PRN Constipation 04/04/23 04/04/23 History budesonide-formoterol HFA 80 2 puff inhalation Q12H 04/04/23 04/04/23 History mcg-4.5 mcg/actuation aerosol inhaler carboxymethylcellulose sodium 1 % 2 drp EACH EYE TID
[2023-04-05 13:26] LABS: Glucose Point of Care 155 mg/dl (65-105)
[2023-04-05] MEDS: SUCCINYLCHOLINE CHLORIDE 20 MG/ML 10 ML VIAL 60 MG IV PUSH (13:27)
[2023-04-05] MEDS: ETOMIDATE 20 MG/10 ML AMPUL IV PUSH (13:27)
[2023-04-05] MEDS: MIDAZOLAM HCL (*CRX) 2 MG/2 ML VIAL IV PUSH (13:28)
[2023-04-05 14:03] LABS: Alveolar/Arterial O2 Gradient 145.5 mmHg; Base Excess ABG 3.4 mEq/l (+/-2.0); Fractional Inspired Oxygen 40 %; HCO3 ABG 24.8 mEq/l (22.0-26.0); Oxygen Content ABG 15.2 %vol (16.0-22.0); Oxygen Saturation ABG 98.6 % (95.0-100.0); Oxyhemoglobin 97.4 % THb (90.0-100.0); PCO2 ABG 27.8 mmHg (35.0-45.0); PO2 ABG 107.7 mmHg (80.0-100.0); PO2 FiO2 Ratio Arterial Blood 2.69 %
[2023-04-05] MEDS: VANCOMYCIN 1,500 MG/NS 500 ML 1,500 MG/500 ML BAG 250 MG IVPB (14:07)
[2023-04-05] MEDS: LACTATED RINGERS 500 ML 999 ML IV CONT (14:10)
[2023-04-05] MEDS: PANTOPRAZOLE SODIUM IV 40 MG VIAL IV PUSH (14:10)
[2023-04-05] MEDS: MEROPENEM 1 GM/NS 100 ML 1 GM/100 ML BAG IVPB ×2 (14:16→20:18)
[2023-04-05] MEDS: CENTRAL LINE FLUSH 10 ML IV PUSH ×2 (14:16→21:55)
[2023-04-05] MEDS: LACTATED RINGERS 1,000 ML 999 ML IV CONT (15:48)
[2023-04-05] MEDS: LACTATED RINGERS 1,000 ML 100 ML IV CONT (15:48)
--- NOTE | 2023-04-05 16:35 | PC.NURSE ---
This patient, Gabriela Aguayo, was received from [[id number]] on 04/05/23 at 1200. Patient/family oriented to unit policies and routines
[2023-04-05] MEDS: NOREPINEPHRINE 8 MG/D5W 250 ML 8 MG/250 ML BAG 9.38 MG IV CONT (17:32)
[2023-04-05 18:41] LABS: Appearance Urine Cloudy (Clear); Bacteria Urine Rare /hpf; Bilirubin Urine Negative (Negative); Blood Urine 2+ (Negative); Color Urine Yellow (Yellow); Glucose Urine UA Negative (Negative); Ketones Urine Trace mg/dL (Negative); Leukocyte Esterase Ur 2+ LEU/UL (Negative); Need Manual Microscopic Reviewed; Nitrate Urine Positive (Negative); Protein Urine Trace mg/dL (Negative); Specific Grav Ur 1.016 (1.001-1.035); Squamous Epithelial Cell Urine None seen /hpf (Few); WBC Urine 51-100 /hpf; pH Urine 5.5 (5.0-9.0)
[2023-04-05 18:52] LABS: Add Urine Microscopic? YES
[2023-04-05 19:12] LABS: MRSA (PCR) NOT DETECTED (NOT DETECTE)
[2023-04-05 19:23] LABS: Glucose Point of Care 175 mg/dl (65-105)
[2023-04-05] MEDS: LEVALBUTEROL NEB 1.25 MG/3 ML INHALATION (20:09)
[2023-04-05] MEDS: MINERAL OIL/WHITE PETROLATUM OINTMENT 1 APPLIC EACH EYE (21:55)
[2023-04-06] VITALS (42 sets, daily range): BP systolic 93–139; BP diastolic 59–87; PULSE 66–91; RESP 15–34; TEMP 36.7–37.2; O2SAT 96–100
[2023-04-06] MEDS: VANCOMYCIN 1,250 MG/NS 250 ML 1,250 MG/250 ML BAG 166.67 MG IVPB (00:20)
[2023-04-06] MEDS: FLUTICASONE/SALMETEROL 45-21 MCG INHALER 1 PUFF 2 PUFF INHALATION (00:21)
[2023-04-06] MEDS: IPRATROPIUM BR 0.02% INH SOLN 0.5 MG/2.5 ML VIAL INHALATION ×4 (02:43→20:57)
[2023-04-06] MEDS: LEVALBUTEROL NEB 1.25 MG/3 ML INHALATION ×4 (02:43→20:57)
[2023-04-06 04:55] LABS: Alveolar/Arterial O2 Gradient 87.4 mmHg; Carboxyhemoglobin 0.3 % THb (0-2.0); Fractional Inspired Oxygen 30 %; Methemoglobin ABG 0.1 %THb (0-1.5); Oxygen Content ABG 13.4 %vol (16.0-22.0); Oxygen Saturation ABG 96.2 % (95.0-100.0); Oxyhemoglobin 93.7 % THb (90.0-100.0); PCO2 ABG 42.7 mmHg (35.0-45.0); PO2 ABG 76.3 mmHg (80.0-100.0); PO2 FiO2 Ratio Arterial Blood 2.54 %; Reduced Hemoglobin 5.9 %THb (0-5.0); Total Hemoglobin 10.1 g/dL (12.0-18.0); pH ABG 7.493 (7.350-7.450)
[2023-04-06] MEDS: CENTRAL LINE FLUSH 10 ML IV PUSH ×3 (06:20→23:42)
[2023-04-06 06:28] LABS: Basophils Percent Auto 0.3 % (0.2-1.2); Eosinophils Percent Auto 0.3 % (0-4.4); Hematocrit 27.1 % (37.0-47.0); Immature Granulocyte Absolute 0.04 K/mm3 (0.00-0.031); Immature Granulocyte Percent A 0.4 % (0-0.5); Lymphocytes Absolute Auto 0.94 K/mm3 (0.9-3.2); Lymphocytes Percent Auto 8.3 % (18.3-44.2); Mean Corpuscular HGB Conc 29.5 g/dl (32-36); Mean Corpuscular Volume 94.8 fl (80-100); Monocytes Absolute Auto 0.9 K/mm3 (0.1-0.6); Monocytes Percent Auto 8.3 % (2.6-8.5); Neutrophils Absolute Auto 9.4 K/mm3 (1.3-6.7); Neutrophils Percent Auto 82.4 % (45.5-73.1); Platelet Count Result 396 k/mm3 (150-375); Red Blood Count 2.86 M/mm3 (4.2-5.4); Red Cell Distribution Width 18.2 % (11.5-14.5); White Blood Count 11.4 K/mm3 (4.5-10.0)
[2023-04-06 06:30] LABS: Device VENTILATOR; Modified Allen's Test Pass; Site Drawn LEFT RADIAL
[2023-04-06 06:31] LABS: Arterial Blood Gas PEEP 5 cmH2O; Arterial Blood Gas Tidal Volume 360 ml; Arterial Blood Gas Vent Mode CMV; Arterial Blood Gas Ventilator rate 20 /MIN
[2023-04-06] MEDS: MEROPENEM 1 GM/NS 100 ML 1 GM/100 ML BAG IVPB ×3 (06:33→20:51)
[2023-04-06] MEDS: dexmedeTOMIDine 400 MCG/100 ML 400 MCG/100 ML BAG IV CONT (06:35)
[2023-04-06 06:42] LABS: Alanine Aminotransferase 13 U/L (6-35); Albumin Level 3.2 g/dL (3.5-5.1); Alkaline Phosphatase 86 U/L (38-126); Anion Gap 2 mmol/L (8-16); Aspartate Amino Transferase 28 U/L (14-36); Bilirubin,Total 1.1 mg/dL (0.2-1.3); Blood Urea Nitrogen 27 mg/dL (7-17); Calcium 8.9 mg/dL (8.4-10.2); Carbon Dioxide 34 mmol/L (22-30); Chloride 107 mmol/L (98-107); Estimated CRCL calculation 85 ml/min; Estimated Glomerular Filt Rate > 60; Glucose 152 mg/dL (65-110); Potassium 3.3 mmol/L (3.4-5.0); Sodium 143 mmol/L (137-145)
[2023-04-06 07:27] LABS: Anisocytosis 1+ (NORMAL); Hypochromasia 2+ (NORMAL); Platelet Estimate Adequate (Adequate); Schistocytes None Seen (NORMAL)
[2023-04-06] MEDS: methylPREDNISolone SOD SUCC 125 MG VIAL 60 MG IV PUSH (09:14)
[2023-04-06] MEDS: DOCUSATE SODIUM LIQ 100 MG/10 ML UDC FEED TUBE ×2 (09:15→17:26)
[2023-04-06] MEDS: MIRTAZAPINE 7.5 MG TABLET FEED TUBE (09:15)
[2023-04-06] MEDS: PANTOPRAZOLE SODIUM IV 40 MG VIAL IV PUSH (09:15)
[2023-04-06] MEDS: MINERAL OIL/WHITE PETROLATUM OINTMENT 1 APPLIC EACH EYE ×2 (09:15→20:52)
[2023-04-06] MEDS: ENOXAPARIN 40 MG/0.4 ML SYRINGE SUB-Q (09:15)
[2023-04-06] MEDS: DICLOFENAC SODIUM 1% 100 GM GEL (*BKC) 1 APPLIC TOPICAL ×4 (09:16→20:52)
--- NOTE | 2023-04-06 09:16 | WPDINTPN ---
Progress Note: A&P Assessment and Plan (1) Acute on chronic respiratory failure with hypoxia and hypercapnia: Code(s): J96.21 - Acute and chronic respiratory failure with hypoxia; J96.22 - Acute and chronic respiratory failure with hypercapnia Status: Acute Assessment and Plan: Multifactorial secondary to severe COPD, deconditioning, congestive heart failure, pulmonary hypertension Most recent chest x-ray showed IMPRESSION: 1. Diffuse lung disease with interval improvement, consistent with pneumonia and/or pulmonary edema. 2. Small pleural effusions. 3. Improving bibasilar airspace opacities, consistent with atelectasis versus pneumonia Patient failed BiPAP therapy and now intubated and placed on mechanical ventilation Vent settings reviewed. Repeat ABG and chest x-ray reviewed Continue steroids Continue bronchodilators Patient was started on broad-spectrum antibiotic therapy although it does not appear to be in pneumonia. Will do deescalate once culture results and procalcitonin level of back Patient has already received diuretics. Will hold further her hemodynamics have stabilized Her WBC barely elevated and she is afebrile. She was recently discharged from the hospital. Pneumonia unlikely but still possible Cultures have been ordered Had influenza COVID and RSV are negative (2) Moderate pulmonary hypertension: Code(s): I27.20 - Pulmonary hypertension, unspecified Status: Acute Assessment and Plan: See above (3) Pneumonia: Qualifiers: Laterality: bilateral Lung location: unspecified part of lung Pneumonia type: due to unspecified organism Qualified Code(s): J18.9 - Pneumonia, unspecified organism Code(s): J18.9 - Pneumonia, unspecified organism Status: Acute Assessment and Plan: See above (4) COPD (chronic obstructive pulmonary disease): Code(s): J44.9 - Chronic obstructive pulmonary disease, unspecified Status: Acute Assessment and Plan: See above (5) Dysphagia: Code(s): R13.10 - Dysphagia, unspecified Status: Acute Assessment and Plan: She has PEG tube and tube feeds will be continue (6) Seizures: Code(s): R56.9 - Unspecified convulsions Status: Acute Assessment and Plan: Continue Keppra Plan DVT prophylaxis -Lovenox Stress ulcer prophylaxis -Pepcid Nutrition continue tube feeds Code Status -patient's code status is DNR with no CPR as per patient's daughter I had long meeting yesterday with patient's daughter and we discussed goals of care and I updated her with patient's current status. Total Critical Care Time - 30 minutes Due to a high probability of clinically significant, life threatening deterioration, the patient required my highest level of preparedness to intervene emergently and I personally spent this critical care time directly and personally managing the patient. This critical care time included obtaining a history; examining the patient; pulse oximetry; ordering and review of studies; arranging urgent treatment with development of a management plan; evaluation of patient's response to treatment; frequent reassessment; and discussions with other providers. It was exclusive of separately billable procedures and treating other patients and teaching time. Please see Assessment and Plan section and the rest of the note for further information on patient assessment and treatment Subjective Date/time seen: 04/06/23 Overnight events reviewed. Afebrile Continues to be on mechanical ventilation 30% FiO2 Started on low-dose Levophed Continues to be sedated with Precedex Other vitals acceptable Interval history: 77-year-old female with history of CVA with residual right-sided deficits, COPD, heart failure, GERD, pulmonary hypertension among other comorbidities as well as multiple intubations is presenting with respiratory failure. Review of Systems Review of Systems: ROS un
[2023-04-06 09:46] LABS: Procalcitonin 0.5 ng/mL
[2023-04-06] MEDS: levETIRAcetam ORAL SOL 500 MG/5 ML UDC 750 MG FEED TUBE ×2 (10:08→20:52)
--- NOTE | 2023-04-06 11:11 | PCNFU ---
Nutrition Follow-Up Complete: Swallowing Difficulties as related to Dysphagia as evidenced of PEG. Goal: Meet estimated nutritional needs. patient is progressing towards goal. We will continue current goal. Pt current nutrition is Glucerna 1.2. Nutrition recommendation: Jevity 1.5 at 55 ml/hr Last recorded weight is 63.1 kg, up from 59 kg on admit. Bowel Motility: No Bm reported. Labs Reviewed:Glu 152, Cr 0.4,BUN 27, K 3.3,Alb 3.2,Hct 27.1,Hgb 8.0 Meds Noted:Precedex, Remeron, Lovenox,Protonix. Skin: WNL Additional Notes: Patient current with mechanical vent. PEG tube placed in Apr 2022. Patient home tube feedings are Jevity 1.5 at 55 ml/hr. Spoke with Litigation Legal Secretary today regarding tube feeding formula change. MD agreed with change tube feeding formula to home tube feedings of Jevity 1.5 at 55 ml/hr (1815 kcals/77 gms protein/920 ml water). Flush 30 ml q 4 hours. Agree with diet orders at this time. Will monitor weights, labs, skin, tube feedings tolerance every Sunday and Sunday.
[2023-04-06] MEDS: POTASSIUM CHLORIDE 20 MEQ PACKET (FOR LIQUID) 40 MEQ FEED TUBE (11:16)
[2023-04-06 11:32] LABS: Glucose Point of Care 137 mg/dl (65-105)
--- NOTE | 2023-04-06 13:30 | PM.IMPN ---
Progress Note: A&P Assessment and Plan (1) Acute on chronic respiratory failure with hypoxia and hypercapnia: Code(s): J96.21 - Acute and chronic respiratory failure with hypoxia; J96.22 - Acute and chronic respiratory failure with hypercapnia Status: Acute Assessment and Plan: Multifactorial secondary to severe COPD, deconditioning, congestive heart failure, pulmonary hypertension Most recent chest x-ray showed IMPRESSION: 1. Diffuse lung disease with interval improvement, consistent with pneumonia and/or pulmonary edema. 2. Small pleural effusions. 3. Improving bibasilar airspace opacities, consistent with atelectasis versus pneumonia Patient failed BiPAP therapy and now intubated and placed on mechanical ventilation Vent settings reviewed. Repeat ABG and chest x-ray reviewed Continue steroids Continue bronchodilators Patient was started on broad-spectrum antibiotic therapy although it does not appear to be in pneumonia. Will do deescalate once culture results and procalcitonin level of back Patient has already received diuretics. Will hold further her hemodynamics have stabilized Her WBC barely elevated and she is afebrile. She was recently discharged from the hospital. Pneumonia unlikely but still possible Cultures have been ordered Had influenza COVID and RSV are negative (2) Moderate pulmonary hypertension: Code(s): I27.20 - Pulmonary hypertension, unspecified Status: Acute Assessment and Plan: See above (3) Pneumonia: Qualifiers: Laterality: bilateral Lung location: unspecified part of lung Pneumonia type: due to unspecified organism Qualified Code(s): J18.9 - Pneumonia, unspecified organism Code(s): J18.9 - Pneumonia, unspecified organism Status: Acute Assessment and Plan: See above (4) COPD (chronic obstructive pulmonary disease): Code(s): J44.9 - Chronic obstructive pulmonary disease, unspecified Status: Acute Assessment and Plan: See above (5) Dysphagia: Code(s): R13.10 - Dysphagia, unspecified Status: Acute Assessment and Plan: She has PEG tube and tube feeds will be continue (6) Seizures: Code(s): R56.9 - Unspecified convulsions Status: Acute Assessment and Plan: Continue Keppra Plan DVT prophylaxis -Lovenox Stress ulcer prophylaxis -Pepcid Nutrition continue tube feeds Code Status -patient's code status is DNR with no CPR as per patient's daughter Subjective Date/time seen: 04/06/23 13:30 Interval history: 77-year-old female with history of CVA with residual right-sided deficits, COPD, heart failure, GERD, pulmonary hypertension among other comorbidities as well as multiple intubations is presenting with respiratory failure. Intubated, sedated. No overnight events noted. No fevers. Review of Systems Review of Systems: ROS unobtainable: Yes unobtainable due to endotracheal tube Exam Narrative: General: Old frail cachectic female who is sedated, intubated and on mechanical ventilation Lungs/Chest: Trachea central Coarse BS B/L, decreased breath sound air entry throughout, scar from past tracheostomy Cardiac: Tachycardic rRR. Normal S1 S2. No murmurs Circulation: Pedal pulses are intact and symmetrical. Abdomen: Decreased bowel sounds. Cachectic. Soft. NT. ND. Peg tube in place Extremities: No clubbing, cyanosis or edema. Warm : Tam in place Neurologic: Lightly sedated, follows commands with all 4 extremities, appears to be very weak generalized Objective Data Vital Signs Vital Signs: Vital Signs - 24 hr 04/05/23 13:45 04/05/23 13:47 04/05/23 14:05 Temperature Pulse Rate 125 H 125 H 121 H Respiratory Rate 26 H 28 H Blood Pressure Pulse Oximetry 100 Oxygen Delivery Mechanical Ventilation Fraction of Inspired Oxygen 40 04/05/23 14:00 04/05/23 14:30 04/05/23 14:00 Temperature Pulse Rate 109 H 112 H 123 H Re
[2023-04-06 17:28] LABS: Glucose Point of Care 176 mg/dl (65-105)
[2023-04-07] VITALS (39 sets, daily range): BP systolic 108–157; BP diastolic 61–82; PULSE 61–85; RESP 18–28; TEMP 36.5–37.3; O2SAT 18–100
[2023-04-07] MEDS: IPRATROPIUM BR 0.02% INH SOLN 0.5 MG/2.5 ML VIAL INHALATION ×4 (02:36→21:02)
[2023-04-07] MEDS: MEROPENEM 1 GM/NS 100 ML 1 GM/100 ML BAG IVPB ×3 (04:25→20:47)
[2023-04-07] MEDS: LEVALBUTEROL NEB 1.25 MG/3 ML INHALATION ×4 (04:25→21:02)
[2023-04-07 05:11] LABS: Base Excess ABG 8.6 mEq/l (+/-2.0); Carboxyhemoglobin 0.3 % THb (0-2.0); Device VENTILATOR; Fractional Inspired Oxygen 25 %; HCO3 ABG 33.1 mEq/l (22.0-26.0); Methemoglobin ABG 0.2 %THb (0-1.5); Oxygen Content ABG 12.2 %vol (16.0-22.0); Oxygen Saturation ABG 95.4 % (95.0-100.0); Oxyhemoglobin 92.5 % THb (90.0-100.0); PCO2 ABG 45.4 mmHg (35.0-45.0); PO2 ABG 72.3 mmHg (80.0-100.0); PO2 FiO2 Ratio Arterial Blood 2.89 %; Site Drawn RIGHT BRACHIAL; Total Hemoglobin 9.3 g/dL (12.0-18.0)
[2023-04-07 05:12] LABS: Arterial Blood Gas PEEP 5 cmH2O; Arterial Blood Gas Tidal Volume 350 ml; Arterial Blood Gas Vent Mode CMV; Arterial Blood Gas Ventilator rate 20 /MIN
[2023-04-07 05:37] LABS: Basophils Percent Auto 0.2 % (0.2-1.2); Hematocrit 27.8 % (37.0-47.0); Hemoglobin 8.2 g/dL (12.0-15.0); Immature Granulocyte Absolute 0.02 K/mm3 (0.00-0.031); Immature Granulocyte Percent A 0.3 % (0-0.5); Lymphocytes Percent Auto 11.9 % (18.3-44.2); Mean Corpuscular HGB Conc 29.5 g/dl (32-36); Mean Corpuscular Hemoglobin 27.9 pg (26-34); Mean Corpuscular Volume 94.6 fl (80-100); Mean Platelet Volume 9.5 fl (7.4-10.4); Monocytes Absolute Auto 0.7 K/mm3 (0.1-0.6); Monocytes Percent Auto 11.9 % (2.6-8.5); Neutrophils Absolute Auto 4.5 K/mm3 (1.3-6.7); Neutrophils Percent Auto 75.7 % (45.5-73.1); Platelet Count Result 409 k/mm3 (150-375); Red Blood Count 2.94 M/mm3 (4.2-5.4); Red Cell Distribution Width 18.1 % (11.5-14.5); White Blood Count 5.9 K/mm3 (4.5-10.0)
[2023-04-07] MEDS: CENTRAL LINE FLUSH 10 ML IV PUSH ×3 (05:48→20:49)
[2023-04-07 05:52] LABS: Alanine Aminotransferase 14 U/L (6-35); Albumin Level 3.4 g/dL (3.5-5.1); Alkaline Phosphatase 96 U/L (38-126); Anion Gap 5 mmol/L (8-16); Aspartate Amino Transferase 20 U/L (14-36); Bilirubin,Total 0.6 mg/dL (0.2-1.3); Blood Urea Nitrogen 19 mg/dL (7-17); Calcium 9.4 mg/dL (8.4-10.2); Carbon Dioxide 31 mmol/L (22-30); Chloride 108 mmol/L (98-107); Estimated CRCL calculation 85 ml/min; Estimated Glomerular Filt Rate > 60; Glucose 208 mg/dL (65-110); Magnesium 2.2 mg/dL (1.6-2.3); Sodium 144 mmol/L (137-145)
[2023-04-07 06:48] LABS: Platelet Estimate Increased (Adequate)
[2023-04-07 06:49] LABS: Anisocytosis 1+ (NORMAL); Hypochromasia 2+ (NORMAL); Schistocytes None Seen (NORMAL)
[2023-04-07] MEDS: methylPREDNISolone SOD SUCC 125 MG VIAL 60 MG IV PUSH (08:24)
[2023-04-07] MEDS: ENOXAPARIN 40 MG/0.4 ML SYRINGE SUB-Q (08:24)
[2023-04-07] MEDS: PANTOPRAZOLE SODIUM IV 40 MG VIAL IV PUSH (08:24)
[2023-04-07] MEDS: DOCUSATE SODIUM LIQ 100 MG/10 ML UDC FEED TUBE ×2 (08:24→16:04)
[2023-04-07] MEDS: DICLOFENAC SODIUM 1% 100 GM GEL (*BKC) 1 APPLIC TOPICAL ×4 (08:25→20:48)
[2023-04-07] MEDS: MIRTAZAPINE 7.5 MG TABLET FEED TUBE (08:25)
[2023-04-07] MEDS: MINERAL OIL/WHITE PETROLATUM OINTMENT 1 APPLIC EACH EYE ×2 (08:25→23:07)
[2023-04-07] MEDS: dexmedeTOMIDine 400 MCG/100 ML 400 MCG/100 ML BAG IV CONT (09:00)
--- NOTE | 2023-04-07 09:15 | WPDINTPN ---
Progress Note: A&P Assessment and Plan (1) Acute on chronic respiratory failure with hypoxia and hypercapnia: Code(s): J96.21 - Acute and chronic respiratory failure with hypoxia; J96.22 - Acute and chronic respiratory failure with hypercapnia Status: Acute Assessment and Plan: Multifactorial secondary to severe COPD, deconditioning, congestive heart failure, pulmonary hypertension Most recent chest x-ray showed IMPRESSION: 1. Diffuse lung disease with interval improvement, consistent with pneumonia and/or pulmonary edema. 2. Small pleural effusions. 3. Improving bibasilar airspace opacities, consistent with atelectasis versus pneumonia Patient failed BiPAP therapy and now intubated and placed on mechanical ventilation Vent settings reviewed. Repeat ABG and chest x-ray reviewed Continue steroids Continue bronchodilators Patient was started on broad-spectrum antibiotic therapy although it does not appear to be in pneumonia procalcitonin leve was low, cultures are negative till now, WBC is normal I's and patient is afebrile Pneumonia unlikely but still possible Continue meropenem. Vancomycin has been discontinued Had influenza COVID and RSV are negative Patient placed on PSV trial this morning and will continue as tolerated (2) Moderate pulmonary hypertension: Code(s): I27.20 - Pulmonary hypertension, unspecified Status: Acute Assessment and Plan: See above (3) Pneumonia: Qualifiers: Laterality: bilateral Lung location: unspecified part of lung Pneumonia type: due to unspecified organism Qualified Code(s): J18.9 - Pneumonia, unspecified organism Code(s): J18.9 - Pneumonia, unspecified organism Status: Acute Assessment and Plan: See above (4) COPD (chronic obstructive pulmonary disease): Code(s): J44.9 - Chronic obstructive pulmonary disease, unspecified Status: Acute Assessment and Plan: See above (5) Dysphagia: Code(s): R13.10 - Dysphagia, unspecified Status: Acute Assessment and Plan: She has PEG tube and tube feeds will be continue (6) Seizures: Code(s): R56.9 - Unspecified convulsions Status: Acute Assessment and Plan: Continue Keppra Plan DVT prophylaxis -Lovenox Stress ulcer prophylaxis -Pepcid Nutrition continue tube feeds Code Status -patient's code status is DNR with no CPR as per patient's daughter I had long meeting yesterday with patient's daughter and we discussed goals of care and I updated her with patient's current status. Total Critical Care Time - 30 minutes Due to a high probability of clinically significant, life threatening deterioration, the patient required my highest level of preparedness to intervene emergently and I personally spent this critical care time directly and personally managing the patient. This critical care time included obtaining a history; examining the patient; pulse oximetry; ordering and review of studies; arranging urgent treatment with development of a management plan; evaluation of patient's response to treatment; frequent reassessment; and discussions with other providers. It was exclusive of separately billable procedures and treating other patients and teaching time. Please see Assessment and Plan section and the rest of the note for further information on patient assessment and treatment Subjective Date/time seen: 04/07/23 Overnight events reviewed. Afebrile Continues to be on mechanical ventilation Continues to be sedated with Precedex Vitals acceptable Interval history: 77-year-old female with history of CVA with residual right-sided deficits, COPD, heart failure, GERD, pulmonary hypertension among other comorbidities as well as multiple intubations is presenting with respiratory failure. Review of Systems Review of Systems: ROS unobtainable: Yes unobtainable due to endotracheal tube, unobtainable due to medical condition and unobt
[2023-04-07] MEDS: levETIRAcetam ORAL SOL 500 MG/5 ML UDC 750 MG FEED TUBE ×2 (10:06→20:48)
[2023-04-07] MEDS: INSULIN ASPART (*BKC) 100 UNITS/ML SUB-Q ×3 (12:18→23:56)
[2023-04-07 16:04] LABS: Glucose Point of Care 215 mg/dl (65-105)
[2023-04-07 17:25] LABS: Glucose Point of Care 217 mg/dl (65-105)
[2023-04-08] VITALS (42 sets, daily range): BP systolic 106–142; BP diastolic 66–82; PULSE 66–105; RESP 17–31; TEMP 36.2–37.2; O2SAT 95–100
[2023-04-08 00:02] LABS: Glucose Point of Care 204 mg/dl (65-105)
[2023-04-08] MEDS: LEVALBUTEROL NEB 1.25 MG/3 ML INHALATION ×4 (02:54→20:42)
[2023-04-08] MEDS: IPRATROPIUM BR 0.02% INH SOLN 0.5 MG/2.5 ML VIAL INHALATION ×4 (02:55→20:43)
[2023-04-08] MEDS: MEROPENEM 1 GM/NS 100 ML 1 GM/100 ML BAG IVPB ×3 (04:35→20:43)
[2023-04-08 05:01] LABS: Alveolar/Arterial O2 Gradient 49.3 mmHg; Base Excess ABG 6.2 mEq/l (+/-2.0); Carboxyhemoglobin 0.3 % THb (0-2.0); Fractional Inspired Oxygen 25 %; HCO3 ABG 30.8 mEq/l (22.0-26.0); Methemoglobin ABG 0.2 %THb (0-1.5); Oxygen Content ABG 11.8 %vol (16.0-22.0); Oxygen Saturation ABG 95.6 % (95.0-100.0); Oxyhemoglobin 92.7 % THb (90.0-100.0); PO2 ABG 75.5 mmHg (80.0-100.0); PO2 FiO2 Ratio Arterial Blood 3.02 %; Reduced Hemoglobin 6.8 %THb (0-5.0); pH ABG 7.453 (7.350-7.450)
[2023-04-08 05:22] LABS: Arterial Blood Gas Vent Mode CMV; Arterial Blood Gas Ventilator rate 20 /MIN; Device VENTILATOR; Modified Allen's Test Pass; Site Drawn LEFT RADIAL
[2023-04-08 05:23] LABS: Arterial Blood Gas PEEP 5 cmH2O; Arterial Blood Gas Tidal Volume 400 ml
[2023-04-08 05:48] LABS: Basophils Percent Auto 0.2 % (0.2-1.2); Hematocrit 28.5 % (37.0-47.0); Hemoglobin 8.3 g/dL (12.0-15.0); Immature Granulocyte Absolute 0.02 K/mm3 (0.00-0.031); Immature Granulocyte Percent A 0.4 % (0-0.5); Lymphocytes Absolute Auto 0.66 K/mm3 (0.9-3.2); Lymphocytes Percent Auto 12.2 % (18.3-44.2); Mean Corpuscular HGB Conc 29.1 g/dl (32-36); Mean Corpuscular Hemoglobin 27.9 pg (26-34); Mean Platelet Volume 9.1 fl (7.4-10.4); Monocytes Absolute Auto 0.5 K/mm3 (0.1-0.6); Monocytes Percent Auto 9.2 % (2.6-8.5); Neutrophils Absolute Auto 4.2 K/mm3 (1.3-6.7); Platelet Count Result 442 k/mm3 (150-375); Red Blood Count 2.97 M/mm3 (4.2-5.4); Red Cell Distribution Width 17.9 % (11.5-14.5); White Blood Count 5.4 K/mm3 (4.5-10.0)
[2023-04-08 05:58] LABS: Alanine Aminotransferase 13 U/L (6-35); Albumin Level 3.4 g/dL (3.5-5.1); Alkaline Phosphatase 117 U/L (38-126); Anion Gap 6 mmol/L (8-16); Aspartate Amino Transferase 25 U/L (14-36); Bilirubin,Total 0.4 mg/dL (0.2-1.3); Blood Urea Nitrogen 19 mg/dL (7-17); Calcium 9.4 mg/dL (8.4-10.2); Carbon Dioxide 32 mmol/L (22-30); Chloride 106 mmol/L (98-107); Estimated CRCL calculation 108 ml/min; Estimated Glomerular Filt Rate > 60; Glucose 179 mg/dL (65-110); Magnesium 2.1 mg/dL (1.6-2.3); Potassium 3.9 mmol/L (3.4-5.0); Sodium 144 mmol/L (137-145)
[2023-04-08] MEDS: CENTRAL LINE FLUSH 10 ML IV PUSH ×3 (06:09→21:02)
[2023-04-08 07:02] LABS: Anisocytosis 1+ (NORMAL); Hypochromasia 2+ (NORMAL); Platelet Estimate Increased (Adequate); Schistocytes None Seen (NORMAL)
[2023-04-08] MEDS: FUROSEMIDE INJ 40 MG/4 ML VIAL 20 MG IV PUSH (08:27)
[2023-04-08] MEDS: methylPREDNISolone SOD SUCC 125 MG VIAL 60 MG IV PUSH (08:27)
[2023-04-08] MEDS: MIRTAZAPINE 7.5 MG TABLET FEED TUBE (08:27)
[2023-04-08] MEDS: PANTOPRAZOLE SODIUM IV 40 MG VIAL IV PUSH (08:27)
[2023-04-08] MEDS: ENOXAPARIN 40 MG/0.4 ML SYRINGE SUB-Q (08:27)
[2023-04-08] MEDS: DOCUSATE SODIUM LIQ 100 MG/10 ML UDC FEED TUBE ×2 (08:27→16:47)
[2023-04-08] MEDS: DICLOFENAC SODIUM 1% 100 GM GEL (*BKC) 1 APPLIC TOPICAL ×4 (08:28→20:43)
[2023-04-08] MEDS: MINERAL OIL/WHITE PETROLATUM OINTMENT 1 APPLIC EACH EYE (08:28)
[2023-04-08] MEDS: POTASSIUM CHLORIDE 20 MEQ PACKET (FOR LIQUID) FEED TUBE (08:35)
[2023-04-08] MEDS: dexmedeTOMIDine 400 MCG/100 ML 400 MCG/100 ML BAG IV CONT (08:46)
--- NOTE | 2023-04-08 09:12 | WPDINTPN ---
Progress Note: A&P Assessment and Plan (1) Acute on chronic respiratory failure with hypoxia and hypercapnia: Code(s): J96.21 - Acute and chronic respiratory failure with hypoxia; J96.22 - Acute and chronic respiratory failure with hypercapnia Status: Acute Assessment and Plan: Multifactorial secondary to severe COPD, deconditioning, congestive heart failure, pulmonary hypertension Most recent chest x-ray showed IMPRESSION: 1. Diffuse lung disease with interval improvement, consistent with pneumonia and/or pulmonary edema. 2. Small pleural effusions. 3. Improving bibasilar airspace opacities, consistent with atelectasis versus pneumonia Patient failed BiPAP therapy and now intubated and placed on mechanical ventilation Vent settings reviewed. Repeat ABG and chest x-ray reviewed Continue steroids Continue bronchodilators Patient was started on broad-spectrum antibiotic therapy although it does not appear to be in pneumonia procalcitonin leve was low, cultures are negative till now, WBC is normal I's and patient is afebrile Sputum culture growing Gram-positive cocci and urine cultures growing Bree tropicalis Pneumonia unlikely but still possible Continue meropenem. Vancomycin has been discontinued since MRSA screen was negative Had influenza COVID and RSV are negative Lasix 20 mg IV x1 given Patient placed on PSV trial this morning and will evaluate for weaning and extubation (2) Moderate pulmonary hypertension: Code(s): I27.20 - Pulmonary hypertension, unspecified Status: Acute Assessment and Plan: See above (3) Pneumonia: Qualifiers: Laterality: bilateral Lung location: unspecified part of lung Pneumonia type: due to unspecified organism Qualified Code(s): J18.9 - Pneumonia, unspecified organism Code(s): J18.9 - Pneumonia, unspecified organism Status: Acute Assessment and Plan: See above (4) COPD (chronic obstructive pulmonary disease): Code(s): J44.9 - Chronic obstructive pulmonary disease, unspecified Status: Acute Assessment and Plan: See above (5) Dysphagia: Code(s): R13.10 - Dysphagia, unspecified Status: Acute Assessment and Plan: She has PEG tube and tube feeds will be continue (6) Seizures: Code(s): R56.9 - Unspecified convulsions Status: Acute Assessment and Plan: Continue Keppra Plan DVT prophylaxis -Lovenox Stress ulcer prophylaxis -Pepcid Nutrition continue tube feeds Code Status -patient's code status is DNR with no CPR as per patient's daughter I had long meeting yesterday with patient's daughter and we discussed goals of care and I updated her with patient's current status. Total Critical Care Time - 30 minutes Due to a high probability of clinically significant, life threatening deterioration, the patient required my highest level of preparedness to intervene emergently and I personally spent this critical care time directly and personally managing the patient. This critical care time included obtaining a history; examining the patient; pulse oximetry; ordering and review of studies; arranging urgent treatment with development of a management plan; evaluation of patient's response to treatment; frequent reassessment; and discussions with other providers. It was exclusive of separately billable procedures and treating other patients and teaching time. Please see Assessment and Plan section and the rest of the note for further information on patient assessment and treatment Subjective Date/time seen: 04/08/23 Overnight events reviewed. Afebrile Continues to be on mechanical ventilation Off sedation Follows commands Vitals acceptable Interval history: 77-year-old female with history of CVA with residual right-sided deficits, COPD, heart failure, GERD, pulmonary hypertension among other comorbidities as well as multiple intubations is presenting with respiratory failure.
[2023-04-08] MEDS: FLUCONAZOLE 100 MG TABLET 200 MG FEED TUBE (10:39)
[2023-04-08] MEDS: levETIRAcetam ORAL SOL 500 MG/5 ML UDC 750 MG FEED TUBE ×2 (10:39→20:44)
[2023-04-08] MEDS: SCOPOLAMINE 1 MG PATCH 1 PATCH TRANSDERM (10:42)
[2023-04-08 10:46] LABS: Alveolar/Arterial O2 Gradient 85.3 mmHg; Base Excess ABG 5.5 mEq/l (+/-2.0); Fractional Inspired Oxygen 25 %; HCO3 ABG 29.5 mEq/l (22.0-26.0); PCO2 ABG 40.6 mmHg (35.0-45.0); PO2 FiO2 Ratio Arterial Blood 1.79 %; pH ABG 7.479 (7.350-7.450)
[2023-04-08 10:48] LABS: PO2 ABG 44.7 mmHg (80.0-100.0)
[2023-04-08 10:49] LABS: Device VENTILATOR; Modified Allen's Test Pass; Oxygen Saturation ABG 83.8 % (95.0-100.0); Site Drawn LEFT RADIAL
[2023-04-08 10:50] LABS: Arterial Blood Gas PEEP 5 cmH2O; Arterial Blood Gas Vent Mode SPONTANEOUS
[2023-04-08 10:51] LABS: Arterial Blood Gas Pressure Support 5 cmH2O
[2023-04-08 12:10] LABS: Glucose Point of Care 149 mg/dl (65-105)
[2023-04-08 17:53] LABS: Glucose Point of Care 251 mg/dl (65-105)
[2023-04-08] MEDS: INSULIN ASPART (*BKC) 100 UNITS/ML SUB-Q (17:54)
[2023-04-09] VITALS (19 sets, daily range): BP systolic 114–149; BP diastolic 58–86; PULSE 81–108; RESP 18–27; TEMP 36.6–37.4; O2SAT 90–100; BMI 11.0
[2023-04-09 00:09] LABS: Glucose Point of Care 199 mg/dl (65-105)
[2023-04-09] MEDS: LEVALBUTEROL NEB 1.25 MG/3 ML INHALATION (02:05)
[2023-04-09] MEDS: IPRATROPIUM BR 0.02% INH SOLN 0.5 MG/2.5 ML VIAL INHALATION (02:05)
[2023-04-09] MEDS: MEROPENEM 1 GM/NS 100 ML 1 GM/100 ML BAG IVPB (04:30)
[2023-04-09 05:27] LABS: Alveolar/Arterial O2 Gradient 53.3 mmHg; Carboxyhemoglobin 0.3 % THb (0-2.0); Fractional Inspired Oxygen 24 %; HCO3 ABG 33.2 mEq/l (22.0-26.0); Methemoglobin ABG 0.1 %THb (0-1.5); Oxygen Content ABG 12.3 %vol (16.0-22.0); Oxygen Saturation ABG 94.1 % (95.0-100.0); Oxyhemoglobin 91.7 % THb (90.0-100.0); PCO2 ABG 44.3 mmHg (35.0-45.0); PO2 ABG 65.1 mmHg (80.0-100.0); PO2 FiO2 Ratio Arterial Blood 2.71 %; Reduced Hemoglobin 7.9 %THb (0-5.0); Total Hemoglobin 9.5 g/dL (12.0-18.0); pH ABG 7.493 (7.350-7.450)
[2023-04-09 05:28] LABS: Device NASAL CANNULA; Modified Allen's Test Pass; Site Drawn RIGHT RADIAL
[2023-04-09 06:17] LABS: Immature Granulocyte Absolute 0.02 K/mm3 (0.00-0.031); Immature Granulocyte Percent A 0.3 % (0-0.5); Lymphocytes Absolute Auto 0.61 K/mm3 (0.9-3.2); Lymphocytes Percent Auto 10.1 % (18.3-44.2); Mean Corpuscular HGB Conc 29.6 g/dl (32-36); Mean Corpuscular Hemoglobin 27.9 pg (26-34); Mean Corpuscular Volume 94.1 fl (80-100); Mean Platelet Volume 9.9 fl (7.4-10.4); Monocytes Absolute Auto 0.7 K/mm3 (0.1-0.6); Monocytes Percent Auto 10.7 % (2.6-8.5); Neutrophils Absolute Auto 4.8 K/mm3 (1.3-6.7); Neutrophils Percent Auto 78.9 % (45.5-73.1); Nucleated Red Blood Cells Perc 0.3 % (0.0-0.2); Platelet Count Result 456 k/mm3 (150-375); Red Blood Count 2.87 M/mm3 (4.2-5.4); Red Cell Distribution Width 17.8 % (11.5-14.5); White Blood Count 6.1 K/mm3 (4.5-10.0)
[2023-04-09 06:26] LABS: Alanine Aminotransferase 15 U/L (6-35); Albumin Level 3.4 g/dL (3.5-5.1); Alkaline Phosphatase 105 U/L (38-126); Anion Gap 7 mmol/L (8-16); Aspartate Amino Transferase 20 U/L (14-36); Bilirubin,Total 0.4 mg/dL (0.2-1.3); Blood Urea Nitrogen 21 mg/dL (7-17); Calcium 9.1 mg/dL (8.4-10.2); Carbon Dioxide 33 mmol/L (22-30); Chloride 103 mmol/L (98-107); Estimated CRCL calculation 85 ml/min; Estimated Glomerular Filt Rate > 60; Glucose 186 mg/dL (65-110); Magnesium 2.1 mg/dL (1.6-2.3); Potassium 4.2 mmol/L (3.4-5.0); Sodium 143 mmol/L (137-145)
[2023-04-09] MEDS: CENTRAL LINE FLUSH 10 ML IV PUSH ×3 (06:32→20:59)
[2023-04-09 08:27] LABS: Hypochromasia 3+ (NORMAL); Platelet Estimate Increased (Adequate); Schistocytes None Seen (NORMAL)
[2023-04-09] MEDS: DICLOFENAC SODIUM 1% 100 GM GEL (*BKC) 1 APPLIC TOPICAL ×4 (09:26→20:53)
[2023-04-09] MEDS: DOCUSATE SODIUM LIQ 100 MG/10 ML UDC FEED TUBE ×2 (09:26→18:06)
[2023-04-09] MEDS: FLUCONAZOLE 100 MG TABLET 200 MG FEED TUBE (09:26)
[2023-04-09] MEDS: ENOXAPARIN 40 MG/0.4 ML SYRINGE SUB-Q (09:26)
[2023-04-09] MEDS: PANTOPRAZOLE SODIUM IV 40 MG VIAL IV PUSH (09:27)
[2023-04-09] MEDS: methylPREDNISolone SOD SUCC 125 MG VIAL 60 MG IV PUSH (09:27)
[2023-04-09] MEDS: MIRTAZAPINE 7.5 MG TABLET FEED TUBE (09:27)
--- NOTE | 2023-04-09 09:39 | WPDINTPN ---
Progress Note: A&P Assessment and Plan (1) Acute on chronic respiratory failure with hypoxia and hypercapnia: Code(s): J96.21 - Acute and chronic respiratory failure with hypoxia; J96.22 - Acute and chronic respiratory failure with hypercapnia Status: Acute Assessment and Plan: Multifactorial secondary to severe COPD, deconditioning, congestive heart failure, pulmonary hypertension Most recent chest x-ray showed IMPRESSION: 1. Diffuse lung disease with interval improvement, consistent with pneumonia and/or pulmonary edema. 2. Small pleural effusions. 3. Improving bibasilar airspace opacities, consistent with atelectasis versus pneumonia Patient failed BiPAP therapy and now intubated and placed on mechanical ventilation 04/08 she was extubated after a successful weaning trial Continue steroids Continue bronchodilators Incentive spirometry Patient was started on broad-spectrum antibiotic therapy although it does not appear to be in pneumonia procalcitonin level was low, cultures are negative till now, WBC is normal I's and patient is afebrile Sputum culture growing Pseudomonas and urine cultures growing Bree tropicalis Pneumonia unlikely but still possible. Patient does have history of frequent intubations and may have colonization Continue meropenem at this time and will deescalate antibiotics after discussion with pharmacy . Vancomycin has been discontinued since MRSA screen was negative Had influenza COVID and RSV are negative 04/08 Lasix 20 mg IV x1 given (2) Moderate pulmonary hypertension: Code(s): I27.20 - Pulmonary hypertension, unspecified Status: Acute Assessment and Plan: See above (3) Pneumonia: Qualifiers: Laterality: bilateral Lung location: unspecified part of lung Pneumonia type: due to unspecified organism Qualified Code(s): J18.9 - Pneumonia, unspecified organism Code(s): J18.9 - Pneumonia, unspecified organism Status: Acute Assessment and Plan: See above (4) COPD (chronic obstructive pulmonary disease): Code(s): J44.9 - Chronic obstructive pulmonary disease, unspecified Status: Acute Assessment and Plan: See above (5) Dysphagia: Code(s): R13.10 - Dysphagia, unspecified Status: Acute Assessment and Plan: She has PEG tube and tube feeds will be continue (6) Seizures: Code(s): R56.9 - Unspecified convulsions Status: Acute Assessment and Plan: Continue Keppra Plan DVT prophylaxis -Lovenox Stress ulcer prophylaxis -Pepcid Nutrition continue tube feeds Code Status -patient's code status is DNR with no CPR as per patient's daughter Transfer out of ICU today Subjective Date/time seen: 04/09/23 Overnight events reviewed. Afebrile Patient was extubated after a successful weaning trial. She wore BiPAP overnight and is now on nasal cannula 2 L Off all infusions and sedation Tolerating tube feeds Other vitals acceptable Adequate urine output Interval history: 77-year-old female with history of CVA with residual right-sided deficits, COPD, heart failure, GERD, pulmonary hypertension among other comorbidities as well as multiple intubations is presenting with respiratory failure. Review of Systems Review of Systems: ROS unobtainable: Yes unobtainable due to medical condition and unobtainable due to mental status Exam Narrative: General: Old frail cachectic female who is awake but does not answer any questions, Lungs/Chest: Trachea central Coarse BS B/L, decreased breath sound air entry throughout, scar from past tracheostomy Cardiac: Tachycardic rRR. Normal S1 S2. No murmurs Circulation: Pedal pulses are intact and symmetrical. Abdomen: Decreased bowel sounds. Cachectic. Soft. NT. ND. Peg tube in place Extremities: No clubbing, cyanosis or edema. Warm : Tam in place Neurologic: She is extubated awake and regards examiner, she follows commands with both up
--- NOTE | 2023-04-09 10:31 | PCFNICU ---
Addendum entered by Aylin Fitzgerald RD, LDN 04/10/23 08:30: Documentation error: Jevity 1.2 was documented in flowsheet; pt is receiving Jevity 1.5 @ 55 ml/h per orders. PEG. Jevity 1.5 @ goal rate 55 ml/ provides: 1815 kcal, 77 g protein (meeting estimated energy and protein needs @ ~100%), 980 ml free water. Recommend continuing same order. Original Note: ICU Rounding Note: Pt current nutrition is Jevity 1.2 @ 55 ml/h: provides 1452 kcal, 67 g protein, 980 ml free water. Nutrition recommendation: Current tube feeding orders not meeting estimated protein energy needs at ~80% EER, ~ 92% estimated protein needs. recommend increasing to goal of Jevity 1.2 @ 70 ml/h to provide 1848 kcal, 85 g protein, 1242 ml free water. Last recorded weight is 61 kg. Bowel Motility: +2 BMs 04/09/23 Labs Reviewed: Hgb 8.0, Hct 27, Alb 3.4, BUN 21, Cre 0.4 Meds Noted: Remeron, Keppra, lovenox Skin: No pressure injuries Additional Notes: Pt was extubated. Remains on tube feeding per existing PEG. Tolerating well. Consider increasing goal rate to better meet needs. Following daily in ICU rounds. Will monitor weights, labs, skin, tube feedings tolerance every Sunday and Sunday. .
[2023-04-09] MEDS: levETIRAcetam ORAL SOL 500 MG/5 ML UDC 750 MG FEED TUBE ×2 (10:35→21:00)
[2023-04-09 11:48] LABS: pH ABG 7.569 (7.350-7.450)
[2023-04-09 11:49] LABS: Device NON-INVASIVE VENT
[2023-04-09 11:50] LABS: Non-Invasive Expiratory Pressure 6 CMH2O; Non-Invasive Inspiratory Pressure 16 CMH2O; Non-Invasive Vent Rate 20 /MIN
[2023-04-09 11:57] LABS: Glucose Point of Care 160 mg/dl (65-105)
[2023-04-09] MEDS: levoFLOXacin 750 MG TABLET PO (13:00)
[2023-04-09 18:29] LABS: Glucose Point of Care 213 mg/dl (65-105)
[2023-04-09] MEDS: INSULIN ASPART (*BKC) 100 UNITS/ML SUB-Q (18:41)
[2023-04-09 23:55] LABS: Glucose Point of Care 147 mg/dl (65-105)
[2023-04-10] VITALS (11 sets, daily range): BP systolic 134–157; BP diastolic 81–91; PULSE 76–85; RESP 18–26; TEMP 36.4–37; O2SAT 95–99
[2023-04-10 04:43] LABS: Alveolar/Arterial O2 Gradient 44.7 mmHg; Base Excess ABG 5.2 mEq/l (+/-2.0); Carboxyhemoglobin 0.3 % THb (0-2.0); Fractional Inspired Oxygen 24 %; HCO3 ABG 30.1 mEq/l (22.0-26.0); Methemoglobin ABG 0.1 %THb (0-1.5); Oxygen Content ABG 13.2 %vol (16.0-22.0); Oxygen Saturation ABG 94.7 % (95.0-100.0); Oxyhemoglobin 92.4 % THb (90.0-100.0); PCO2 ABG 46.1 mmHg (35.0-45.0); PO2 ABG 71.6 mmHg (80.0-100.0); PO2 FiO2 Ratio Arterial Blood 2.98 %; Reduced Hemoglobin 7.2 %THb (0-5.0); Total Hemoglobin 10.1 g/dL (12.0-18.0); pH ABG 7.433 (7.350-7.450)
[2023-04-10 04:45] LABS: Device NASAL CANNULA; Modified Allen's Test Pass; Site Drawn LEFT RADIAL
[2023-04-10] MEDS: CENTRAL LINE FLUSH 10 ML IV PUSH ×3 (05:09→23:22)
[2023-04-10 05:16] LABS: Hematocrit 30.3 % (37.0-47.0); Hemoglobin 8.9 g/dL (12.0-15.0); Immature Granulocyte Absolute 0.04 K/mm3 (0.00-0.031); Immature Granulocyte Percent A 0.6 % (0-0.5); Lymphocytes Percent Auto 13.9 % (18.3-44.2); Mean Corpuscular HGB Conc 29.4 g/dl (32-36); Mean Corpuscular Hemoglobin 27.7 pg (26-34); Mean Corpuscular Volume 94.4 fl (80-100); Mean Platelet Volume 9.6 fl (7.4-10.4); Monocytes Absolute Auto 0.7 K/mm3 (0.1-0.6); Monocytes Percent Auto 11.1 % (2.6-8.5); Neutrophils Absolute Auto 4.8 K/mm3 (1.3-6.7); Neutrophils Percent Auto 74.4 % (45.5-73.1); Nucleated Red Blood Cells Perc 0.5 % (0.0-0.2); Platelet Count Result 492 k/mm3 (150-375); Red Blood Count 3.21 M/mm3 (4.2-5.4); Red Cell Distribution Width 17.5 % (11.5-14.5); White Blood Count 6.5 K/mm3 (4.5-10.0)
[2023-04-10 05:25] LABS: Alanine Aminotransferase 19 U/L (6-35); Albumin Level 3.7 g/dL (3.5-5.1); Alkaline Phosphatase 106 U/L (38-126); Anion Gap 5 mmol/L (8-16); Aspartate Amino Transferase 30 U/L (14-36); Bilirubin,Total 0.5 mg/dL (0.2-1.3); Blood Urea Nitrogen 18 mg/dL (7-17); Calcium 9.3 mg/dL (8.4-10.2); Carbon Dioxide 32 mmol/L (22-30); Chloride 99 mmol/L (98-107); Estimated CRCL calculation 108 ml/min; Estimated Glomerular Filt Rate > 60; Glucose 146 mg/dL (65-110); Magnesium 2.1 mg/dL (1.6-2.3); Potassium 4.4 mmol/L (3.4-5.0); Sodium 136 mmol/L (137-145)
[2023-04-10 05:44] LABS: Anisocytosis 1+ (NORMAL); Hypochromasia 2+ (NORMAL); Platelet Estimate Increased (Adequate)
[2023-04-10 05:45] LABS: Macrocytosis 1+ (NORMAL); Polychromasia 1+ (NORMAL); Schistocytes None Seen (NORMAL)
[2023-04-10] MEDS: MIRTAZAPINE 7.5 MG TABLET FEED TUBE (08:11)
[2023-04-10] MEDS: levoFLOXacin 750 MG TABLET PO (08:11)
[2023-04-10] MEDS: methylPREDNISolone SOD SUCC 125 MG VIAL 60 MG IV PUSH (08:12)
[2023-04-10] MEDS: FLUCONAZOLE 100 MG TABLET 200 MG FEED TUBE (08:12)
[2023-04-10] MEDS: PANTOPRAZOLE SODIUM IV 40 MG VIAL IV PUSH (08:12)
[2023-04-10] MEDS: ARTIFICIAL TEARS OPHTH SOLN 15 ML BOTTLE 2 DROP EACH EYE ×2 (08:13→21:53)
[2023-04-10] MEDS: DICLOFENAC SODIUM 1% 100 GM GEL (*BKC) 1 APPLIC TOPICAL ×3 (10:48→21:50)
[2023-04-10] MEDS: levETIRAcetam ORAL SOL 500 MG/5 ML UDC 750 MG FEED TUBE ×2 (10:48→21:50)
[2023-04-10] MEDS: METOPROLOL TARTRATE 25 MG TABLET FEED TUBE ×2 (10:48→17:32)
[2023-04-10] MEDS: amLODIPine BESYLATE 5 MG TABLET 10 MG FEED TUBE (10:49)
--- NOTE | 2023-04-10 11:05 | PCNFU ---
Nutrition Follow-Up Complete: Swallowing Difficulties as related to Dysphagia as evidenced of PEG. goal: Meet estimated nutritional needs. patient is meeting current goal. We will continue current goal. Pt current nutrition is Jevity 1.5 at 55 ml/hr. Last recorded weight is 59.1 kg, stable Bowel Motility:+BM reported 04/10 Labs Reviewed:Glu 146, Cr 0.3, BUN 18, Na 136, Hct 30.3,Hgb 8.9 Meds Noted:Remeron, Lovenox, Keppra, Protonix, Diflucan Skin:WNL Additional Notes: Patient extubated on 04/08. PEG tube feedings continue of Jevity 1.5 at 55 ml/hr, which are providing 1815 kcals/77 gms protein/920 ml water. Flush 30 ml q 4 hours. Agree with diet orders. Will monitor weights, labs, skin, tube feedings tolerance every Sunday and Sunday.
[2023-04-10] MEDS: ACETAMINOPHEN ELIXIR 325 MG/10.15 ML UDC 500 MG FEED TUBE ×3 (11:46→21:56)
--- NOTE | 2023-04-10 11:51 | PM.IMPN ---
Progress Note: A&P Assessment and Plan (1) Acute on chronic respiratory failure with hypoxia and hypercapnia: Code(s): J96.21 - Acute and chronic respiratory failure with hypoxia; J96.22 - Acute and chronic respiratory failure with hypercapnia Status: Acute Assessment and Plan: Multifactorial secondary to severe COPD, deconditioning, congestive heart failure, pulmonary hypertension, pneumonia Patient failed BiPAP therapy and now intubated and placed on mechanical ventilation 04/08 extubated Continue steroids, bronchodilators, incentive spirometry Patient was started on broad-spectrum antibiotic therapy although it does not appear to be pneumonia, procalcitonin level was low, cultures are negative, WBC is normal, patient is afebrile Sputum culture growing Pseudomonas and urine cultures growing Bree tropicalis, fluconazole via feeding tube started 04/08 Pneumonia unlikely but still possible. Patient does have history of frequent intubations and may have colonization Continue meropenem at this time and will deescalate antibiotics after discussion with pharmacy Vancomycin has been discontinued since MRSA screen was negative Influenza COVID and RSV are negative 04/08 Lasix 20 mg IV x1 given 04/10: stable on 1L nc, wean as able, abx de-escalated to levaquin, will d/c IV steroids, start prednisone 50 mg daily to complete 7 day course, end date 04/12 (2) Moderate pulmonary hypertension: Code(s): I27.20 - Pulmonary hypertension, unspecified Status: Acute Assessment and Plan: See above (3) Pneumonia: Qualifiers: Laterality: bilateral Lung location: unspecified part of lung Pneumonia type: due to unspecified organism Qualified Code(s): J18.9 - Pneumonia, unspecified organism Code(s): J18.9 - Pneumonia, unspecified organism Status: Acute Assessment and Plan: See above (4) COPD (chronic obstructive pulmonary disease): Code(s): J44.9 - Chronic obstructive pulmonary disease, unspecified Status: Acute Assessment and Plan: See above (5) Dysphagia: Code(s): R13.10 - Dysphagia, unspecified Status: Acute Assessment and Plan: She has PEG tube and tube feeds will be continued (6) Seizures: Code(s): R56.9 - Unspecified convulsions Status: Acute Assessment and Plan: Continue Keppra Plan DVT prophylaxis -Lovenox Stress ulcer prophylaxis -Pepcid Nutrition continue tube feeds Code Status -patient's code status is DNR with no CPR as per patient's daughter Subjective Date/time seen: 04/10/23 11:51 Interval history: 77-year-old female with history of CVA with residual right-sided deficits, COPD, heart failure, GERD, pulmonary hypertension among other comorbidities as well as multiple intubations is presenting with respiratory failure. No overnight events noted. No chest pain. No nausea, vomiting or diarrhea. No fevers or chills. Patient with improved shortness of breath, almost weaned to room air. Review of Systems Review of Systems: 12 point review of systems was assessed and was negative except as noted in the HPI Exam Narrative: General: Old frail cachectic female who is awake but does not answer any questions, Lungs/Chest: Trachea central, coarse BS B/L, decreased breath sound air entry throughout, scar from past tracheostomy Cardiac: RRR. Normal S1 S2. No murmurs Circulation: Pedal pulses are intact and symmetrical. Abdomen: Decreased bowel sounds. Cachectic. Soft. NT. ND. Peg tube in place Extremities: No clubbing, cyanosis or edema. Warm Objective Data Vital Signs Vital Signs: Vital Signs - 24 hr 04/09/23 12:00 04/09/23 12:00 04/09/23 12:00 Temperature 98.9 F Pulse Rate 84 84 84 Respiratory Rate 23 H 23 H Blood Pressure 135/84 Pulse Oximetry 100 100 Oxygen Delivery Nasal Cannula Oxygen Flow Rate 2 Fraction of Inspired Oxygen 25
[2023-04-10 11:55] LABS: Glucose Point of Care 186 mg/dl (65-105)
[2023-04-10] MEDS: INSULIN ASPART (*BKC) 100 UNITS/ML SUB-Q (17:40)
[2023-04-10 17:57] LABS: Glucose Point of Care 243 mg/dl (65-105)
[2023-04-10 18:12] LABS: Glucose Point of Care 235 mg/dl (65-105)
[2023-04-10 23:51] LABS: Glucose Point of Care 215 mg/dl (65-105)
--- NOTE | 2023-04-10 23:51 | PC.NURSE ---
The patient was transferred to 306 in stable condition. All belongings sent with the patient. Report given to receiving RN.
[2023-04-11] VITALS (8 sets, daily range): BP systolic 113–129; BP diastolic 67–74; PULSE 67–78; RESP 14–16; TEMP 36.2–36.6; O2SAT 94–100
[2023-04-11] MEDS: INSULIN ASPART (*BKC) 100 UNITS/ML SUB-Q ×2 (00:28→05:49)
[2023-04-11] MEDS: CENTRAL LINE FLUSH 10 ML IV PUSH ×3 (05:49→21:17)
[2023-04-11 06:04] LABS: Glucose Point of Care 204 mg/dl (65-105)
[2023-04-11 06:17] LABS: Hematocrit 33.3 % (37.0-47.0); Hemoglobin 9.9 g/dL (12.0-15.0); Immature Granulocyte Absolute 0.04 K/mm3 (0.00-0.031); Immature Granulocyte Percent A 0.6 % (0-0.5); Lymphocytes Absolute Auto 0.79 K/mm3 (0.9-3.2); Lymphocytes Percent Auto 11.1 % (18.3-44.2); Mean Corpuscular HGB Conc 29.7 g/dl (32-36); Mean Corpuscular Volume 94.3 fl (80-100); Mean Platelet Volume 9.6 fl (7.4-10.4); Monocytes Absolute Auto 0.9 K/mm3 (0.1-0.6); Monocytes Percent Auto 12.4 % (2.6-8.5); Neutrophils Absolute Auto 5.4 K/mm3 (1.3-6.7); Neutrophils Percent Auto 75.9 % (45.5-73.1); Nucleated Red Blood Cells Perc 0.6 % (0.0-0.2); Platelet Count Result 621 k/mm3 (150-375); Red Blood Count 3.53 M/mm3 (4.2-5.4); Red Cell Distribution Width 17.1 % (11.5-14.5); White Blood Count 7.1 K/mm3 (4.5-10.0)
[2023-04-11 06:25] LABS: Alanine Aminotransferase 18 U/L (6-35); Albumin Level 3.6 g/dL (3.5-5.1); Alkaline Phosphatase 114 U/L (38-126); Anion Gap 3 mmol/L (8-16); Aspartate Amino Transferase 24 U/L (14-36); Bilirubin,Total 0.5 mg/dL (0.2-1.3); Blood Urea Nitrogen 27 mg/dL (7-17); Calcium 9.4 mg/dL (8.4-10.2); Carbon Dioxide 37 mmol/L (22-30); Chloride 99 mmol/L (98-107); Estimated CRCL calculation 85 ml/min; Estimated Glomerular Filt Rate > 60; Glucose 209 mg/dL (65-110); Potassium 4.4 mmol/L (3.4-5.0); Sodium 139 mmol/L (137-145)
[2023-04-11] MEDS: predniSONE 40 MG, predniSONE 10 MG 50 MG PO (08:41)
[2023-04-11] MEDS: amLODIPine BESYLATE 5 MG TABLET 10 MG FEED TUBE (08:41)
[2023-04-11] MEDS: METOPROLOL TARTRATE 25 MG TABLET FEED TUBE ×2 (08:42→17:20)
[2023-04-11] MEDS: levoFLOXacin 750 MG TABLET PO (08:42)
[2023-04-11] MEDS: PANTOPRAZOLE SODIUM IV 40 MG VIAL IV PUSH (08:45)
[2023-04-11] MEDS: DOCUSATE SODIUM LIQ 100 MG/10 ML UDC FEED TUBE ×2 (08:45→17:19)
[2023-04-11] MEDS: DICLOFENAC SODIUM 1% 100 GM GEL (*BKC) 1 APPLIC TOPICAL ×3 (08:45→21:16)
[2023-04-11] MEDS: levETIRAcetam ORAL SOL 500 MG/5 ML UDC 750 MG FEED TUBE ×2 (09:18→21:17)
[2023-04-11] MEDS: MIRTAZAPINE 7.5 MG TABLET FEED TUBE (09:18)
[2023-04-11] MEDS: FLUCONAZOLE 100 MG TABLET 200 MG FEED TUBE (09:18)
[2023-04-11 11:45] LABS: Glucose Point of Care 158 mg/dl (65-105)
--- NOTE | 2023-04-11 15:00 | PM.IMPN ---
Progress Note: A&P Assessment and Plan (1) Acute on chronic respiratory failure with hypoxia and hypercapnia: Code(s): J96.21 - Acute and chronic respiratory failure with hypoxia; J96.22 - Acute and chronic respiratory failure with hypercapnia Status: Acute Assessment and Plan: Multifactorial secondary to severe COPD, deconditioning, congestive heart failure, pulmonary hypertension, pneumonia Patient failed BiPAP therapy and now intubated and placed on mechanical ventilation 04/08 extubated Continue steroids, bronchodilators, incentive spirometry Patient was started on broad-spectrum antibiotic therapy although it does not appear to be pneumonia, procalcitonin level was low, cultures are negative, WBC is normal, patient is afebrile Sputum culture growing Pseudomonas and urine cultures growing Bree tropicalis, fluconazole via feeding tube started 04/08 Pneumonia unlikely but still possible. Patient does have history of frequent intubations and may have colonization Continue meropenem at this time and will deescalate antibiotics to Levaquin Vancomycin was discontinued since MRSA screen was negative Influenza COVID and RSV are negative 04/08 Lasix 20 mg IV x1 given Stable on 1-2L. Daughter states patient [facility] at [facility] so will resume tonight. Wean O2 as toelrated (2) Moderate pulmonary hypertension: Code(s): I27.20 - Pulmonary hypertension, unspecified Status: Acute Assessment and Plan: See above (3) Pneumonia: Qualifiers: Laterality: bilateral Lung location: unspecified part of lung Pneumonia type: due to unspecified organism Qualified Code(s): J18.9 - Pneumonia, unspecified organism Code(s): J18.9 - Pneumonia, unspecified organism Status: Acute Assessment and Plan: See above (4) COPD (chronic obstructive pulmonary disease): Code(s): J44.9 - Chronic obstructive pulmonary disease, unspecified Status: Acute Assessment and Plan: See above (5) Dysphagia: Code(s): R13.10 - Dysphagia, unspecified Status: Acute Assessment and Plan: She has PEG tube and tube feeds will be continued Elevated HOB (6) Seizures: Code(s): R56.9 - Unspecified convulsions Status: Acute Assessment and Plan: Continue Keppra Plan DVT prophylaxis -Lovenox Stress ulcer prophylaxis -Pepcid Nutrition continue tube feeds Code Status -patient's code status is DNR with no CPR as per patient's daughter Patient recently hospitalized twice for respiratory failure requiring intubation. Spoke with dtr about hospice but she is 'not ready' for hospice for her mother. She is aware that the patient may continue to have bouts of respiratory failure that could result in repeated intubations. Subjective Date/time seen: 04/11/23 15:00 Interval history: 77-year-old female with history of CVA with residual right-sided deficits, COPD, heart failure, GERD, pulmonary hypertension among other comorbidities as well as multiple intubations is presenting with respiratory failure. Assuming care. Chart reviewed. Patine arouses but unable to provide history. Per daughter, patient has BiPAP at night. Dtr stated patient just was discharged from [place] for similar problems (and required intubation) Review of Systems Review of Systems: ROS unobtainable: Yes unobtainable due to mental status Exam Narrative: AF 97.2 113/69 78 16 100% 2L Gen - NARD Chest - clear anteriorly to quiet respirations CV - RRR S1/S2 Abd - Soft, GTube site clean, dry and intact. Ext - No pedal edema Neuro - Alert and nonverbal Skin - Warm and dry Objective Data Vital Signs Vital Signs: Vital Signs - 24 hr 04/10/23 16:00 04/10/23 19:45 04/11/23 00:49 Temperature 97.6 F Pulse Rate 85 84 Respiratory Rate 20 18 Blood Pressure 134/81 Pulse Oximetry 98 97 99 Oxygen Delivery Nasal Cannula Oxygen Fl
[2023-04-12] LABS: Glucose Point of Care 216 mg/dl (65-105)
[2023-04-12] MEDS: INSULIN ASPART (*BKC) 100 UNITS/ML SUB-Q (00:08)
[2023-04-12 04:50] VITALS: BP 128/77; PULSE 79; RESP 16; TEMP 36.8; O2SAT 100
[2023-04-12] MEDS: CENTRAL LINE FLUSH 10 ML IV PUSH (05:12)
[2023-04-12 05:14] LABS: Glucose Point of Care 179 mg/dl (65-105)
[2023-04-12] MEDS: predniSONE 40 MG, predniSONE 10 MG 50 MG PO (09:56)
[2023-04-12] MEDS: amLODIPine BESYLATE 5 MG TABLET 10 MG FEED TUBE (09:56)
[2023-04-12] MEDS: levoFLOXacin 750 MG TABLET PO (09:56)
[2023-04-12 09:57] VITALS: PULSE 80
[2023-04-12] MEDS: MIRTAZAPINE 7.5 MG TABLET FEED TUBE (09:57)
[2023-04-12] MEDS: METOPROLOL TARTRATE 25 MG TABLET FEED TUBE (09:57)
[2023-04-12] MEDS: FLUCONAZOLE 100 MG TABLET 200 MG FEED TUBE (09:57)
[2023-04-12] MEDS: PANTOPRAZOLE SODIUM IV 40 MG VIAL IV PUSH (09:58)
[2023-04-12] MEDS: DOCUSATE SODIUM LIQ 100 MG/10 ML UDC FEED TUBE (09:58)
[2023-04-12] MEDS: levETIRAcetam ORAL SOL 500 MG/5 ML UDC 750 MG FEED TUBE (09:59)
[2023-04-12] MEDS: DICLOFENAC SODIUM 1% 100 GM GEL (*BKC) 1 APPLIC TOPICAL ×2 (09:59→15:55)
[2023-04-12 11:46] LABS: Glucose Point of Care 178 mg/dl (65-105)
[2023-04-12 14:00] VITALS: BP 115/65; PULSE 90; RESP 16; TEMP 36.7; O2SAT 100
--- NOTE | 2023-04-12 14:01 | PM.DS ---
DS: Admitting Diagnosis Discharge Date 04/12/23 Admitting Diagnosis Respiratory failure DS: Discharge Diagnosis Discharge Diagnosis (1) Acute on chronic respiratory failure with hypoxia and hypercapnia: Code(s): J96.21 - Acute and chronic respiratory failure with hypoxia; J96.22 - Acute and chronic respiratory failure with hypercapnia Status: Acute (2) Moderate pulmonary hypertension: Code(s): I27.20 - Pulmonary hypertension, unspecified Status: Acute (3) Pneumonia: Qualifiers: Laterality: bilateral Lung location: unspecified part of lung Pneumonia type: due to unspecified organism Qualified Code(s): J18.9 - Pneumonia, unspecified organism Code(s): J18.9 - Pneumonia, unspecified organism Status: Acute (4) COPD (chronic obstructive pulmonary disease): Code(s): J44.9 - Chronic obstructive pulmonary disease, unspecified Status: Acute (5) Dysphagia: Code(s): R13.10 - Dysphagia, unspecified Status: Acute (6) Seizures: Code(s): R56.9 - Unspecified convulsions Status: Acute DS: Summary Hospital Course Reason for hospitalization: 77-year-old female with history of CVA with residual right-sided deficits, COPD, heart failure, GERD, pulmonary hypertension among other comorbidities as well as multiple intubations is presenting with respiratory failure. Please see H&P for details. Hospital Course: Patient recently hospitalized for respiratory failure requiring intubation. Patient was discharged but returns to this hospital a few days later in respiratory failure. [place] respiratory failure was multifactorial secondary to severe COPD, deconditioning, congestive heart failure, pulmonary hypertension, and/or pneumonia. Patient failed BiPAP therapy and was intubated and placed on mechanical ventilation. Tolerated this well and was able to weaned down and extubated 04/08. She was treated with steroids and bronchodilators. Patient was started on broad-spectrum antibiotic therapy for pneumonia. Procalcitonin level was low and cultures are negative. WBC was normal and patient was afebrile. Sputum culture growing Pseudomonas and urine cultures growing Bree tropicalis. Fluconazole via feeding tube started 04/08. Possible pneumonia but she has a history of frequent intubations and may have colonization. Treated with meropenem and deescalated to Levaquin. QTc was okay. Vancomycin was discontinued since MRSA screen was negative. Influenza, COVID and RSV are negative. Stable on 1-2L.? Daughter states patient [facility] so this was resumed. She has dysphagia with PEG tube. Tube feeding was continued. She did well and was able to be discharged on 04/12/23. Status at Discharge Cognitive/behavioral status at discharge: stable Time Spent with Patient Time attestation: Total time spent providing and/or coordinating discharge services: 35 minutes Time spent: Greater than 30 minutes Exam Narrative: AF 98.2 128/77 80 16 100% 2L Gen - NARD Chest - clear anteriorly CV - RRR S1/S2 Abd - Soft, GTube site clean, dry and intact. Ext - No pedal edema Neuro - Alert and appropriate. speech somewhat garbled Skin - Warm and dry DS: Data Data Completed and Pending Labs on day of discharge: Labs from last 24 hours 04/12/23 04/12/23 04/11/23 11:42 05:11 23:58 POC Capillary Glucose 178 H 179 H 216 H Discharge Plan Discharge Attending physician on discharge: Christiano Garza Consulting providers: Jakub Haider Adarsh Discharging Clinician: Christiano Garza Anticipated Discharge Date/Time: 04/12/23 14:11 Patient Disposition: NH Snf/Asst Living Activity: as tolerated Diet: NPO and other - see discharge instructions Discharge Instructions: Please check glucose before meals and before bed. Record for the doctor's review. Check blood pressure 1 to 2 times a day. Re
[2023-04-12] MEDS: SCOPOLAMINE 1 MG PATCH 1 PATCH TRANSDERM (15:55)
[2023-04-12 16:00] LABS: SARS-CoV-2 RNA PCR Negative (Negative)
== END 2023-04-12 16:20 | DRG 208 ==
LOC: ANHED 07:42 → ANHIMU 08:11 → ANHICU 04-05 12:02 → ANH3MEDSUR 04-10 23:57
PROVIDERS: Internal Medicine; Student in an Organized Health Care Education/Training Program; Admitting Provider General Practice; Emergency Provider Emergency Medicine; PCP Hospitalist; Visit Provider General Practice
DX: J96.01 Acute respiratory failure with hypoxia (principal); J18.9 Pneumonia, unspecified organism; I69.351 Hemiplegia and hemiparesis following cerebral infarction affecting right dominant side; J44.0 Chronic obstructive pulmonary disease with (acute) lower respiratory infection; J96.02 Acute respiratory failure with hypercapnia; I11.0 Hypertensive heart disease with heart failure; I50.9 Heart failure, unspecified; I27.20 Pulmonary hypertension, unspecified; K21.9 Gastro-esophageal reflux disease without esophagitis; R13.10 Dysphagia, unspecified; R56.9 Unspecified convulsions; B96.5 Pseudomonas (aeruginosa) (mallei) (pseudomallei) as the cause of diseases classified elsewhere; B37.9 Candidiasis, unspecified; Z20.822 Contact with and (suspected) exposure to COVID-19; Z11.52 Encounter for screening for COVID-19; Z79.01 Long term (current) use of anticoagulants; Z86.718 Personal history of other venous thrombosis and embolism; Z79.4 Long term (current) use of insulin; Z93.1 Gastrostomy status
CPT/HCPCS: 31500; 36415; 36569; 36600; 71045; 80053; 81001; 82375; 82805; 82948; 83050; 83605; 83735; 83880; 84100; 84145; 84484; 85025; 85380; 87040; 87070; 87077; 87081; 87086; 87106; 87186; 87205; 87635; 87637; 87641; 93005; 94002; 94003; 94640; 94660; 96374; 97162; 97166; 99285; A9270; C9113; G0378; J0330; J1650; J1815; J1940; J2185; J2250; J2930; J3370; J7030; J7120; J7512

== ENCOUNTER 2023-04-18 14:28 | Inpatient (IN) | payer MEDICARE, MEDICAID, SELFPAY ==
[2023-04-18] VITALS (11 sets, daily range): BP systolic 105–115; BP diastolic 67–73; PULSE 95–102; RESP 20–30; TEMP 36.3–36.6; O2SAT 95–99
--- NOTE | ~2023-04-18 | XR_ITS ---
EXAMINATION: XR chest ET placement DATE: 04/27/2023 16:10 INDICATION: Tracheostomy tube placement. TECHNIQUE: A single frontal view of the chest was obtained. COMPARISON: Chest single view 04/25/2023 FINDINGS: There are lucencies and interstitial opacities in the lungs, consistent with emphysema. The re are airspace opacities in right lower lung zone and left mid and lower lung zones. There is a mode rate-sized left pleural effusion. No pneumothorax. The heart size is normal. There is a filter in the inferior vena cava. A tracheostomy tube is noted. IMPRESSION: 1. Airspace opacities in right lower lung zone and left mid and lower lung zones with worsening on th e left, likely a combination of pneumonia and atelectasis. 2. Worsened moderate-sized left pleural effusion. 3. Severe emphysema. Reviewed, dictated and finalized at location E. SERVICE LOCKSMITH IMPRESSION: 1. Airspace opacities in right lower lung zone and left mid and lower lung zone s with worsening on the left, likely a combination of pneumonia and atelectasis . 2. Worsened moderate-sized left pleural effusion. 3. Severe emphysema.
--- NOTE | ~2023-04-18 | XR_ITS ---
EXAMINATION: XR chest 1V portable DATE: 04/21/2023 05:46 INDICATION: Tachypnea. TECHNIQUE: A single frontal view of the chest was obtained. COMPARISON: Chest single view 04/19/2023, chest CT 01/31/2023 FINDINGS: The patient is rotated to her right. There are lucencies in the lungs, consistent with emph ysema. There is a small left pleural effusion. There are airspace opacities at the lung bases. No pne umothorax. The heart size is normal. There is a filter in the inferior vena cava. IMPRESSION: 1. Stable small left pleural effusion. 2. Airspace opacities at the lung bases with improvement on the right, consistent with atelectasis ve rsus pneumonia. 3. Severe emphysema. Reviewed, dictated and finalized at location A. CONTENT EDITOR IMPRESSION: 1. Stable small left pleural effusion. 2. Airspace opacities at the lung bases with improvement on the right, consiste nt with atelectasis versus pneumonia. 3. Severe emphysema.
--- NOTE | ~2023-04-18 | CT_ITS ---
EXAMINATION: CTA chest PE protocol DATE: 04/23/2023 10:01 INDICATION: Shortness of breath. TECHNIQUE: Computed tomography angiography (CTA) of the chest was performed with 100 mL Omnipaque-350 intravenous contrast timed to evaluate the pulmonary arteries. Coronal maximum intensity projection 3D-reconstructions were created by the technologist. Automated exposure control and iterative reconst ruction technique were employed. The dose-length product was 510.92 mGy-cm. COMPARISON: Chest CT 01/31/2023 FINDINGS: There is severe emphysema. There are airspace opacities in the right lower lobe and right m iddle lobe. There are small pleural effusions. The heart size is normal. No pericardial effusion. The re is no pulmonary embolus. There is a filter in the inferior vena cava. There is a 5 mm stone in rig ht kidney. There is a gastrostomy tube. There are multiple chronic vertebral body fractures. IMPRESSION: 1. No pulmonary embolus. 2. Airspace opacities in the right lower lobe and right middle lobe, consistent with pneumonia. 3. Small pleural effusions. 4. Severe emphysema. Reviewed, dictated and finalized at location A. KLAYER'S ASSISTANT
--- NOTE | ~2023-04-18 | XR_ITS ---
EXAMINATION: XR chest 1V portable DATE: 04/23/2023 09:26 INDICATION: Shortness of breath. TECHNIQUE: A single frontal view of the chest was obtained. COMPARISON: Chest view 04/22/2023 FINDINGS: There are lucencies and interstitial opacities in the lungs, consistent with emphysema. The re are airspace opacities in the lower lung zones. There is a small left pleural effusion. No pneumot horax. The heart size is normal. There is a filter in the inferior vena cava. IMPRESSION: 1. Airspace opacities in the lower lung zones with worsening on the right, consistent with atelectasi s versus pneumonia. 2. Severe emphysema. 3. Stable small left pleural effusion. Reviewed, dictated and finalized at location A. ICAL OPERATIONS LEADER IMPRESSION: 1. Airspace opacities in the lower lung zones with worsening on the right, cons istent with atelectasis versus pneumonia. 2. Severe emphysema. 3. Stable small left pleural effusion.
--- NOTE | ~2023-04-18 | XR_ITS ---
EXAMINATION: XR chest 1V portable DATE: 04/22/2023 05:45 INDICATION: Shortness of breath. TECHNIQUE: A single frontal view of the chest was obtained. COMPARISON: Chest single view 04/21/2023 FINDINGS: Again seen is mild elevation of right hemidiaphragm. There are lucencies and interstitial o pacities throughout the lungs, consistent with emphysema. There are airspace opacities at the lung ba ses. There is a small left pleural effusion. No pneumothorax. The heart size is normal. There is a fi lter in the inferior vena cava. IMPRESSION: 1. Stable small left pleural effusion. 2. Severe emphysema. 3. Stable airspace opacities at the lung bases, consistent with atelectasis versus pneumonia. Reviewed, dictated and finalized at location A. RVISOR COAL HANDLING IMPRESSION: 1. Stable small left pleural effusion. 2. Severe emphysema. 3. Stable airspace opacities at the lung bases, consistent with atelectasis edmundo viri pneumonia.
--- NOTE | ~2023-04-18 | XR_ITS ---
Portable chest x-ray Comparison: 04/23/2023 Clinical History: Shortness of breath Findings: Small bilateral pleural effusions are present. There is probable COPD. Correlate for super imposed interstitial disease. Possible right basilar pneumonia. Cardiomediastinal silhouette is stab le. Bones and soft tissues are unremarkable. Impression: Small bilateral pleural effusions. Possible right basilar pneumonia. Underlying COPD or other chronic interstitial disease. Reviewed, dictated and finalized at location . TIONSHIP EXECUTIVE Impression: Small bilateral pleural effusions. Possible right basilar pneumonia. Underlying COPD or other chronic interstitial disease.
--- NOTE | ~2023-04-18 | XR_ITS ---
XR chest 1V portable 04/19/2023 16:47 Indication: Shortness of breath. Procedure: AP portable chest Comparison: Comparison to multiple prior studies sequentially, with oldest reviewed study dated 03/23. Findings: Borderline heart size. Mild interstitial edema. Small pleural effusions. IVC filter present . No pneumothorax. Impression: 1: Mild interstitial edema with small pleural effusions. Reviewed, dictated and finalized at location L. IS COURT ATTENDANT Impression: 1: Mild interstitial edema with small pleural effusions.
--- NOTE | ~2023-04-18 | XR_ITS ---
Portable chest x-ray Comparison: 04/24/2023 Clinical History: Shortness of breath Findings: Small bilateral pleural effusions are present. There is underlying COPD pattern of the darrell gs. Possible focal hazy right upper lobe airspace opacity developing. Cardiomediastinal silhouette is stable. Bones and soft tissues are unremarkable. Impression: Small bilateral pleural effusions. COPD. Possible focal developing right upper lobe airspace opacity. Correlate for focal pneumonia. Reviewed, dictated and finalized at location . S AND RECREATION MANAGER Impression: Small bilateral pleural effusions. COPD. Possible focal developing right upper lobe airspace opacity. Correlate for foca l pneumonia.
--- NOTE | ~2023-04-18 | XR_ITS ---
EXAMINATION: XR chest 1V portable Exam Date/Time: 04/18/2023 19:55 AG SERVICE MANAGER HISTORY: SOB Comparison: 04/10/2023. RESULT: Lines, tubes, and devices: IVC filter, partially visualized. Interval removal of the right upper ext remity PICC. Lungs and pleura: Mild diffuse reticular opacities. Worsening bibasilar airspace disease. Increasing bilateral costophrenic angle blunting. Cardiomediastinal silhouette: Stable. Other: No acute osseous or upper abdominal finding. IMPRESSION: Worsening bilateral airspace disease may represent atelectasis, aspiration, or pneumonia. Possible sm all bilateral pleural effusions. Mild interstitial edema. Reviewed, dictated and finalized at location K. SERVICE MANAGER IMPRESSION: Worsening bilateral airspace disease may represent atelectasis, aspiration, or pneumonia. Possible small bilateral pleural effusions. Mild interstitial edema.
--- NOTE | 2023-04-18 14:31 | ECG_ITS ---
Measurements Intervals [place] Rate: 105 P: 60 MA: 153 QRS: 13 QRSD: 90 T: 42 QT: 322 QTc: 426 Interpretive Statements SINUS TACHYCARDIA WITH FREQUENT SUPRAVENTRICULAR PREMATURE COMPLEXES POSSIBLE RIGHT VENTRICULAR CONDUCTION DELAY [RSR (QR) IN V1/V2] NONSPECIFIC ST & T-WAVE ABNORMALITY ABNORMAL RHYTHM ECG COMPARED TO ECG 04/04/2023 04:57:34 NO SIGNIFICANT CHANGES Electronically Signed On 04-18-2023 21:07:29 SECOND OFFICER by Malena John M.D.
[2023-04-18 14:51] LABS: Basophils Percent Auto 0.1 % (0.2-1.2); Eosinophils Percent Auto 0.1 % (0-4.4); Hematocrit 37.2 % (37.0-47.0); Hemoglobin 10.7 g/dL (12.0-15.0); Immature Granulocyte Absolute 0.07 K/mm3 (0.00-0.031); Immature Granulocyte Percent A 0.5 % (0-0.5); Lymphocytes Absolute Auto 2.33 K/mm3 (0.9-3.2); Lymphocytes Percent Auto 15.8 % (18.3-44.2); Mean Corpuscular HGB Conc 28.8 g/dl (32-36); Mean Corpuscular Hemoglobin 27.6 pg (26-34); Mean Corpuscular Volume 95.9 fl (80-100); Mean Platelet Volume 9.9 fl (7.4-10.4); Monocytes Absolute Auto 1.3 K/mm3 (0.1-0.6); Monocytes Percent Auto 8.9 % (2.6-8.5); Neutrophils Percent Auto 74.6 % (45.5-73.1); Platelet Count Result 542 k/mm3 (150-375); Red Blood Count 3.88 M/mm3 (4.2-5.4); Red Cell Distribution Width 18.6 % (11.5-14.5); White Blood Count 14.7 K/mm3 (4.5-10.0)
[2023-04-18 14:58] LABS: Anisocytosis 2+ (NORMAL); Hypochromasia 2+ (NORMAL); Macrocytosis 1+ (NORMAL); Platelet Estimate Increased (Adequate); Schistocytes None Seen (NORMAL)
[2023-04-18 15:01] LABS: INR 1.1; Prothrombin Time 14.7 Seconds (11.1-14.7)
[2023-04-18 15:02] LABS: Alanine Aminotransferase 13 U/L (6-35); Albumin Level 3.5 g/dL (3.5-5.1); Alkaline Phosphatase 91 U/L (38-126); Anion Gap 2 mmol/L (8-16); Appearance Urine Cloudy (Clear); Aspartate Amino Transferase 27 U/L (14-36); Bacteria Urine None Seen /hpf; Bilirubin Urine Negative (Negative); Bilirubin,Total 0.9 mg/dL (0.2-1.3); Blood Urea Nitrogen 36 mg/dL (7-17); Blood Urine 2+ (Negative); Budding Yeast Urine Present /hpf; Calcium 9.6 mg/dL (8.4-10.2); Calcium Oxalate Crystals Urine Present /hpf; Carbon Dioxide 39 mmol/L (22-30); Chloride 102 mmol/L (98-107); Color Urine Yellow (Yellow); Estimated CRCL calculation 112 ml/min; Estimated Glomerular Filt Rate > 60; Glucose 221 mg/dL (65-110); Glucose Urine UA Negative (Negative); Ketones Urine Negative (Negative); Leukocyte Esterase Ur 2+ LEU/UL (Negative); Need Manual Microscopic Reviewed; Nitrate Urine Negative (Negative); Partial Thromboplastin Time 33.7 SECONDS (22.3-36.8); Potassium 4.5 mmol/L (3.4-5.0); Protein Urine 1+ mg/dL (Negative); RBC Urine 21-50 /hpf (0-2); Sodium 143 mmol/L (137-145); Squamous Epithelial Cell Urine None seen /hpf (Few); WBC Urine 51-100 /hpf; pH Urine 5.5 (5.0-9.0)
[2023-04-18 15:04] LABS: Add Urine Microscopic? YES
--- NOTE | 2023-04-18 15:05 | ED.AMS ---
HPI - Altered Mental Status General Chief Complaint: Altered Mental Status Stated Complaint: SOB Time Seen by Provider: 04/18/23 14:31 History of Present Illness HPI narrative: Patient is a 77-year-old female with history of CVA causing her to be bed-bound as well as causing vascular dementia who presents ER with shortness of breath. Notice by [facility] staff today. Patient was reported to be wheezy received a nebulizer treatment at the [facility] and by EMS. Patient without wheezes at this time. She cannot provide history. Related Data Home Medications Medication Instructions Recorded Confirmed acetaminophen 500 mg tablet 500 mg feeding tube Q4H PRN Pain 04/04/23 04/18/23 (Scale Score 1-3) amlodipine 10 mg tablet 10 mg feeding tube DAILY 04/04/23 04/18/23 bisacodyl 10 mg rectal suppository 10 mg RECTAL DAILY PRN Constipation 04/04/23 04/18/23 budesonide-formoterol HFA 80 2 puff inhalation Q12H 04/04/23 04/18/23 mcg-4.5 mcg/actuation aerosol inhaler carboxymethylcellulose sodium 1 % 2 drp EACH EYE Q8H PRN Dry Eyes 04/04/23 04/18/23 eye liquid gel drops diclofenac sodium 1 % topical gel 1 ea topical QID 04/04/23 04/18/23 docusate sodium 50 mg/5 mL oral 100 mg feeding tube BID 04/04/23 04/18/23 liquid enoxaparin 40 mg/0.4 mL 40 mg subcut DAILY 04/04/23 04/18/23 subcutaneous syringe kit famotidine 20 mg tablet 20 mg feeding tube BID 04/04/23 04/18/23 insulin lispro 100 unit/mL 1 sliding scale dose subcut 04/04/23 04/18/23 subcutaneous cartridge (Humalog USEASDIRECTD U-100 Insulin) ipratropium 0.5 mg-albuterol 3 mg 3 ml inhalation Q6H PRN Shortness 04/04/23 04/18/23 (2.5 mg base)/3 mL nebulization Of Breath Or Wheezing soln levetiracetam 100 mg/mL oral 750 mg feeding tube Q12H 04/04/23 04/18/23 solution (Keppra) magnesium citrate (Citroma oral 300 ml feeding tube DAILY PRN 04/04/23 04/18/23 solution) Constipation magnesium hydroxide 400 mg/5 mL 30 ml feeding tube HS PRN 04/04/23 04/18/23 oral suspension (Milk of Magnesia) Constipation metoprolol tartrate 25 mg tablet 25 mg feeding tube BID 04/04/23 04/18/23 mirtazapine 7.5 mg tablet 7.5 mg feeding tube HS 04/04/23 04/18/23 scopolamine base 1 mg over 3 days 1 patch transdermal Q3D 04/04/23 04/18/23 transdermal patch sodium phosphates 19 gram-7 197 ml RECTAL DAILY PRN 04/04/23 04/18/23 gram/118 mL enema (Fleet Enema) Constipation Allergies Allergy/AdvReac Type Severity Reaction Status Date / Time No Known Allergies Allergy Verified 04/04/23 19:36 Review of Systems Review of Systems: ROS unobtainable: Yes unobtainable due to mental status PMFSH Past Medical History Medical History Acute intracranial hemorrhage 03/25/23 - transferred to [facility] Anemia COPD (chronic obstructive pulmonary disease) Diastolic dysfunction Echocardiogram 01/2023: EF greater than 70%, grade 1 diastolic dysfunction, mild left atrial enlargement, mild tricuspid regurgitation, moderate pulmonary hypertension, pleural effusion seen DVT (deep venous thrombosis) Dysphagia GERD (gastroesophageal reflux disease) HTN (hypertension) Moderate pulmonary hypertension Seizures Surgical History Surgical History Gastrointestinal tube present Family History Family History Other Unknown family medical history Social History Social History Social History: Patient is currently residing at [facility]. Patient has a daughter and a son. Code status: No CPR Smoking status: Former smoker Alcohol intake: unknown Substance use: unknown Spiritual care concerns: No Exam Narrative: GENERAL: Chronically ill-appearing, well-nourished, and in no acute distress. HEAD: Normocephalic, atraumatic. EYES: P
[2023-04-18 15:27] LABS: Influenza A QL RT-PCR Negative (Negative); Influenza B QL RT-PCR Negative (Negative); RSV RNA, RT-PCR Negative (Negative); SARS-CoV-2 RNA PCR Negative (Negative)
--- NOTE | 2023-04-18 16:15 | PC.NURSE ---
Starr, pt daughter, called asking for update. She can be reached at [phone]
--- NOTE | 2023-04-18 18:24 | PC.NURSE ---
Pt daughter, Starr, called again asking for more information about patient admission.
--- NOTE | 2023-04-18 19:37 | ADMGEN ---
This patient, Gabriela Aguayo, was admitted to [facility] Room 332-01. Patient/family oriented to hospital policies and general routines including ID bracelet, bed and alarms, visiting hours, pain management, procedures, bathroom and other care routines, personal items, smoking policy, room service/diet, and visiting hours. Information on how to activate the Rapid Response Team has been discussed. Patient/Family are encouraged to report perceived risks to care and to ask questions if they do not understand what they are told or what they should do.
[2023-04-18] MEDS: SODIUM CHLORIDE 0.9% IV 1,000 ML 125 ML IV CONT (20:40)
--- NOTE | 2023-04-18 21:01 | PC.NURSE ---
Med list not complete from facility, have pages only 4 of 6 as stated on papers. Attempted to call [facility] and got automated message, pushed 0 for buggy operator and goes back to automated message. Unable to reach anyone at facility at this time. Will try again later.
[2023-04-19] VITALS (11 sets, daily range): BP systolic 121–135; BP diastolic 65–80; PULSE 105–117; RESP 18–30; TEMP 36.7–37.2; O2SAT 96–100; BMI 20.9
--- NOTE | 2023-04-19 03:58 | PM.IMHP ---
H&P: HPI History of Present Illness Date/Time: 04/19/23 03:58 Chief Complaint: shortness of breath Narrative: 77F w/ PMH CVA with resultant right sided deficits, G tube uuse, bed bound, COPD w/ chronic respiratory failure requiring 2L NC continuous, GERD, pulm HTN, anemia, DVT, seizures presents from group home staff with notice of wheeziness, she received neb treatment in EMS and was not wheezing upon arrival. She is a poor historian as she is nonverbal due to her stroke. She was just discharged from our facility after being intubated due to a number of factors, including COPD, HF, pulm HTN, and/or pneumonia. She is able to shake and nod her head to my questions. She does not seem to have any complaints. Review of Systems Review of Systems: All systems reviewed & are unremarkable except as noted in HPI and below (HPI) ROS unobtainable: Yes unobtainable due to medical condition PMFSH Past Medical History Medical History Acute intracranial hemorrhage 03/25/23 - transferred to [facility] Anemia COPD (chronic obstructive pulmonary disease) Diastolic dysfunction Echocardiogram 01/2023: EF greater than 70%, grade 1 diastolic dysfunction, mild left atrial enlargement, mild tricuspid regurgitation, moderate pulmonary hypertension, pleural effusion seen DVT (deep venous thrombosis) Dysphagia GERD (gastroesophageal reflux disease) HTN (hypertension) Moderate pulmonary hypertension Seizures Surgical History Surgical History Gastrointestinal tube present Family History Family History Other Unknown family medical history Social History Social History Social History: Patient is currently residing at [facility]. Patient has a daughter and a son. Code status: No CPR Smoking status: Former smoker Alcohol intake: unknown Substance use: unknown Spiritual care concerns: No Meds Home Medications and Allergies Home Medications Medication Instructions Recorded Confirmed Type acetaminophen 500 mg tablet 500 mg feeding tube Q4H PRN Pain 04/04/23 04/18/23 History (Scale Score 1-3) amlodipine 10 mg tablet 10 mg feeding tube DAILY 04/04/23 04/18/23 History bisacodyl 10 mg rectal suppository 10 mg RECTAL DAILY PRN Constipation 04/04/23 04/18/23 History budesonide-formoterol HFA 80 2 puff inhalation Q12H 04/04/23 04/18/23 History mcg-4.5 mcg/actuation aerosol inhaler carboxymethylcellulose sodium 1 % 2 drp EACH EYE Q8H PRN Dry Eyes 04/04/23 04/18/23 History eye liquid gel drops diclofenac sodium 1 % topical gel 1 ea topical QID 04/04/23 04/18/23 History docusate sodium 50 mg/5 mL oral 100 mg feeding tube BID 04/04/23 04/18/23 History liquid enoxaparin 40 mg/0.4 mL 40 mg subcut DAILY 04/04/23 04/18/23 History subcutaneous syringe kit famotidine 20 mg tablet 20 mg feeding tube BID 04/04/23 04/18/23 History insulin lispro 100 unit/mL 1 sliding scale dose subcut 04/04/23 04/18/23 History subcutaneous cartridge (Humalog USEASDIRECTD U-100 Insulin) ipratropium 0.5 mg-albuterol 3 mg 3 ml inhalation Q6H PRN Shortness 04/04/23 04/18/23 History (2.5 mg base)/3 mL nebulization Of Breath Or Wheezing soln levetiracetam 100 mg/mL oral 750 mg feeding tube Q12H 04/04/23 04/18/23 History solution (Keppra) magnesium citrate (Citroma oral 300 ml feeding tube DAILY PRN 04/04/23 04/18/23 History solution) Constipation magnesium hydroxide 400 mg/5 mL 30 ml feeding tube HS PRN 04/04/23 04/18/23 History oral suspension (Milk of Magnesia) Constipation metoprolol tartrate 25 mg tablet 25 mg feeding tube BID 04/04/23 04/18/23 History mirtazapine 7.5 mg tablet 7.5 mg feeding tube HS 04/04/23 04/18/23 History scopolamine base 1 mg over 3 days 1 patch transdermal Q3D 1
[2023-04-19] MEDS: SODIUM CHLORIDE 0.9% IV 1,000 ML 125 ML IV CONT (04:00)
[2023-04-19] MEDS: CEFEPIME 2 GM/NS 50 ML 2 GM/50 ML BAG IVPB ×3 (04:16→21:23)
[2023-04-19] MEDS: MICAFUNGIN SODIUM 100 MG in SODIUM CHLORIDE 0.9% IV 100 ML IVPB (05:26)
[2023-04-19 06:42] LABS: Hematocrit 35.6 % (37.0-47.0); Hemoglobin 10.4 g/dL (12.0-15.0); Immature Granulocyte Absolute 0.04 K/mm3 (0.00-0.031); Immature Granulocyte Percent A 0.5 % (0-0.5); Lymphocytes Absolute Auto 0.38 K/mm3 (0.9-3.2); Lymphocytes Percent Auto 4.6 % (18.3-44.2); Mean Corpuscular HGB Conc 29.2 g/dl (32-36); Mean Corpuscular Hemoglobin 27.7 pg (26-34); Mean Corpuscular Volume 94.7 fl (80-100); Mean Platelet Volume 9.8 fl (7.4-10.4); Monocytes Absolute Auto 0.2 K/mm3 (0.1-0.6); Monocytes Percent Auto 2.9 % (2.6-8.5); Neutrophils Absolute Auto 7.7 K/mm3 (1.3-6.7); Platelet Count Result 563 k/mm3 (150-375); Red Blood Count 3.76 M/mm3 (4.2-5.4); Red Cell Distribution Width 18.3 % (11.5-14.5); White Blood Count 8.3 K/mm3 (4.5-10.0)
[2023-04-19 06:48] LABS: MRSA (PCR) NOT DETECTED (NOT DETECTE)
[2023-04-19 07:01] LABS: Alanine Aminotransferase 13 U/L (6-35); Albumin Level 3.4 g/dL (3.5-5.1); Alkaline Phosphatase 77 U/L (38-126); Aspartate Amino Transferase 18 U/L (14-36); Bilirubin,Total 0.8 mg/dL (0.2-1.3); Blood Urea Nitrogen 37 mg/dL (7-17); Calcium 9.2 mg/dL (8.4-10.2); Carbon Dioxide > 40 mmol/L (22-30); Chloride 107 mmol/L (98-107); Estimated CRCL calculation 112 ml/min; Estimated Glomerular Filt Rate > 60; Glucose 334 mg/dL (65-110); Magnesium 2.2 mg/dL (1.6-2.3); Potassium 4.3 mmol/L (3.4-5.0); Sodium 147 mmol/L (137-145)
[2023-04-19 07:04] LABS: NT Pro B Type Natriuretic Pept 235 pg/mL (19.9-100)
[2023-04-19] MEDS: IPRATROPIUM BR 0.02% INH SOLN 0.5 MG/2.5 ML VIAL INHALATION ×3 (07:29→20:23)
[2023-04-19] MEDS: ALBUTEROL SULFATE NEB 2.5 MG/3 ML INH INHALATION ×3 (07:29→20:23)
[2023-04-19 08:13] LABS: Anisocytosis 1+ (NORMAL); Hypochromasia 1+ (NORMAL); Platelet Estimate Increased (Adequate); Schistocytes None Seen (NORMAL)
[2023-04-19 08:23] LABS: Procalcitonin 0.1 ng/mL
--- NOTE | 2023-04-19 09:08 | PM.IMPN ---
Progress Note: A&P Assessment and Plan (1) Urinary tract infection: Qualifiers: Hematuria presence: without hematuria Urinary tract infection type: site unspecified Qualified Code(s): N39.0 - Urinary tract infection, site not specified Code(s): N39.0 - Urinary tract infection, site not specified Status: Acute (2) Pneumonia: Qualifiers: Laterality: left Lung location: lower lobe of lung Pneumonia type: due to unspecified organism Qualified Code(s): J18.9 - Pneumonia, unspecified organism Code(s): J18.9 - Pneumonia, unspecified organism Status: Acute (3) COPD with acute exacerbation: Code(s): J44.1 - Chronic obstructive pulmonary disease with (acute) exacerbation Status: Acute Plan 77-year-old female with history of CVA bed-bound status present with shortness of breath. She does report to be wheezy and received nebulizer treatment at the [facility]. WBC 14.7 hemoglobin 10.7 UA positive with 51-100 WBC suggestive of UTI. Has baseline right-sided deficits G-tube in-situ bedbound status chronic respiratory failure due to COPD on 2 L oxygen nasal cannula continuous minimally verbal. UTI treated with micafungin for fungal UTI detected recently mild chronic anemia thrombocytosis chronic Tam mild hyponatremia noted. BNP 235 which is about baseline. Nasal MRSA swab negative influenza COVID RSV negative. Chest x-ray with worsening bilateral airspace disease may represent atelectasis aspiration or pneumonia possible small bilateral pleural effusion mild interstitial edema. DVT prophylaxis Lovenox. On cefepime vancomycin for possible pneumonia pancultured. Will stop IV fluids. Check ABG lactic acid. Will exchange Tam. Uses BiPAP at night and [facility]. Will stop vancomycin. Possible COPD exacerbation will start IV steroid. 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 She does report to be wheezy and received nebulizer treatment at the [facility]. WBC 14.7 hemoglobin 10.7 UA positive with 51-100 WBC suggestive of UTI. Has baseline right-sided deficits G-tube in-situ bedbound status chronic respiratory failure due to COPD on 2 L oxygen nasal cannula continuous minimally verbal. UTI treated with micafungin for fungal UTI detected recently mild chronic anemia thrombocytosis chronic Tam mild hyponatremia noted. BNP 235 which is about baseline. Nasal MRSA swab negative influenza COVID RSV negative. Chest x-ray with worsening bilateral airspace disease may represent atelectasis aspiration or pneumonia possible small bilateral pleural effusion mild interstitial edema. DVT prophylaxis Lovenox. On cefepime vancomycin for possible pneumonia pancultured. Will stop IV fluids. Check ABG lactic acid Review of Systems Review of Systems: ROS unobtainable: Yes unobtainable due to medical condition Exam Narrative: GENERAL: ? Chronically ill-appearing, well-nourished, and in no acute distress. HEAD: Normocephalic, atraumatic. EYES: PERRL and EOMI. ENT:? Mucous membranes dry. NECK: Supple. tracheostomy scar CHEST: Coarse breath sound No respiratory distress. HEART: Mild tachycardia, normal peripheral pulses. ABDOMEN: Soft, nontender, nondistendeds. G-tube in-situ EXTREMITIES:? bilateral lower extremities in inflatable boots to prevent sores. SKIN: Warm, dry, no rash. NEURO: ? Awake alert but u
[2023-04-19] MEDS: ENOXAPARIN 40 MG/0.4 ML SYRINGE SUB-Q (09:45)
[2023-04-19 09:59] LABS: Alveolar/Arterial O2 Gradient 80.6 mmHg; Base Excess ABG 6.5 mEq/l (+/-2.0); Fractional Inspired Oxygen 28 %; HCO3 ABG 31.3 mEq/l (22.0-26.0); Oxygen Content ABG 14.8 %vol (16.0-22.0); Oxygen Saturation ABG 93.5 % (95.0-100.0); Oxyhemoglobin 91.4 % THb (90.0-100.0); PCO2 ABG 45.7 mmHg (35.0-45.0); PO2 ABG 65.1 mmHg (80.0-100.0); PO2 FiO2 Ratio Arterial Blood 2.33 %; Total Hemoglobin 11.5 g/dL (12.0-18.0); pH ABG 7.453 (7.350-7.450)
[2023-04-19 10:01] LABS: Lactic Acid Reflex 1.7 mmol/L (0.7-2.0)
[2023-04-19 10:03] LABS: Device NASAL CANNULA; Site Drawn LEFT BRACHIAL
[2023-04-19] MEDS: FUROSEMIDE INJ 40 MG/4 ML VIAL 20 MG IV PUSH (10:40)
[2023-04-19] MEDS: methylPREDNISolone SOD SUCC 40 MG VIAL IV PUSH ×2 (10:40→17:33)
[2023-04-19] MEDS: VANCOMYCIN 1,500 MG/NS 500 ML 1,500 MG/500 ML BAG 250 MG IVPB (11:06)
[2023-04-19 11:40] LABS: Glucose Point of Care 353 mg/dl (65-105)
[2023-04-19] MEDS: FUROSEMIDE INJ 40 MG/4 ML VIAL IV PUSH (17:33)
[2023-04-19] MEDS: INSULIN ASPART (*BKC) 100 UNITS/ML SUB-Q (18:08)
--- NOTE | 2023-04-19 18:11 | PC.NURSE ---
Pt had august upon arrival from SNF. Unsure of when august was placed or why. At this time, pt presented with UA indicative of UTI. August does not appear to have been changed out. August changed at 1800. MD order to keep in at this time.
[2023-04-19 18:23] LABS: Glucose Point of Care 400 mg/dl (65-105)
[2023-04-19 23:57] LABS: Glucose Point of Care 371 mg/dl (65-105)
[2023-04-20] VITALS (19 sets, daily range): BP systolic 115–146; BP diastolic 82–87; PULSE 98–138; RESP 16–40; TEMP 36.5–37.7; O2SAT 92–100
[2023-04-20] MEDS: INSULIN ASPART (*BKC) 100 UNITS/ML SUB-Q ×5 (00:23→23:53)
[2023-04-20] MEDS: methylPREDNISolone SOD SUCC 40 MG VIAL IV PUSH ×4 (00:23→21:20)
[2023-04-20] MEDS: ALBUTEROL SULFATE NEB 2.5 MG/3 ML INH INHALATION ×4 (02:42→21:56)
[2023-04-20] MEDS: IPRATROPIUM BR 0.02% INH SOLN 0.5 MG/2.5 ML VIAL INHALATION ×4 (02:42→21:56)
[2023-04-20] MEDS: MICAFUNGIN SODIUM 100 MG in SODIUM CHLORIDE 0.9% IV 100 ML IVPB (05:38)
[2023-04-20] MEDS: CEFEPIME 2 GM/NS 50 ML 2 GM/50 ML BAG IVPB ×3 (06:08→21:20)
[2023-04-20 06:12] LABS: Glucose Point of Care 347 mg/dl (65-105)
[2023-04-20 06:54] LABS: Basophils Percent Auto 0.1 % (0.2-1.2); Hematocrit 38.7 % (37.0-47.0); Hemoglobin 11.2 g/dL (12.0-15.0); Immature Granulocyte Absolute 0.05 K/mm3 (0.00-0.031); Immature Granulocyte Percent A 0.6 % (0-0.5); Lymphocytes Absolute Auto 0.22 K/mm3 (0.9-3.2); Lymphocytes Percent Auto 2.6 % (18.3-44.2); Mean Corpuscular HGB Conc 28.9 g/dl (32-36); Mean Corpuscular Hemoglobin 27.7 pg (26-34); Mean Corpuscular Volume 95.8 fl (80-100); Mean Platelet Volume 10.2 fl (7.4-10.4); Monocytes Absolute Auto 0.4 K/mm3 (0.1-0.6); Monocytes Percent Auto 4.9 % (2.6-8.5); Neutrophils Absolute Auto 7.9 K/mm3 (1.3-6.7); Neutrophils Percent Auto 91.8 % (45.5-73.1); Nucleated Red Blood Cells Absolute Auto 0.1 K/mm3 (0.0-0.012); Nucleated Red Blood Cells Perc 0.7 % (0.0-0.2); Platelet Count Result 568 k/mm3 (150-375); Red Blood Count 4.04 M/mm3 (4.2-5.4); Red Cell Distribution Width 18.8 % (11.5-14.5); White Blood Count 8.6 K/mm3 (4.5-10.0)
[2023-04-20 07:07] LABS: Alanine Aminotransferase 14 U/L (6-35); Albumin Level 3.7 g/dL (3.5-5.1); Alkaline Phosphatase 104 U/L (38-126); Anion Gap 8 mmol/L (8-16); Aspartate Amino Transferase 17 U/L (14-36); Bilirubin,Total 0.6 mg/dL (0.2-1.3); Blood Urea Nitrogen 39 mg/dL (7-17); Calcium 9.9 mg/dL (8.4-10.2); Carbon Dioxide 35 mmol/L (22-30); Chloride 111 mmol/L (98-107); Estimated CRCL calculation 87 ml/min; Estimated Glomerular Filt Rate > 60; Glucose 390 mg/dL (65-110); Magnesium 2.5 mg/dL (1.6-2.3); Potassium 3.9 mmol/L (3.4-5.0); Sodium 154 mmol/L (137-145)
[2023-04-20 09:26] LABS: Anisocytosis 1+ (NORMAL); Hypochromasia 1+ (NORMAL); Platelet Estimate Increased (Adequate)
[2023-04-20 09:27] LABS: Schistocytes None Seen (NORMAL)
[2023-04-20] MEDS: ENOXAPARIN 40 MG/0.4 ML SYRINGE SUB-Q (09:29)
[2023-04-20] MEDS: INSULIN GLARGINE (*BKC) 100 UNITS/ML 15 UNITS SUB-Q (09:30)
[2023-04-20] MEDS: METOPROLOL TARTRATE 25 MG TABLET FEED TUBE ×2 (11:06→20:36)
[2023-04-20] MEDS: levETIRAcetam ORAL SOL 500 MG/5 ML UDC 750 MG FEED TUBE ×2 (11:08→23:49)
--- NOTE | 2023-04-20 11:34 | PCNFU ---
Nutrition Follow-Up Complete: Swallowing dysfunction related to dysphagia as evidenced by the need for alternative nutrition support via PEG for sole source of nutrition. Meet estimated needs, tolerance of tube feedings. - Meeting goal Goal: Pt current nutrition is Jevity .5 @ 55 ml/h: 1815 kcal, 77 g protein, 920 ml free water. Flush 150 ml q 6 hours. Total water 1520 ml/day. Nutrition recommendation: Continue with current tube feeding orders. Meets ~ 130% estimated energy needs Last recorded weight is 58.9 kg. Bowel Motility: No BM charted since admission yesterday Labs Reviewed: Hgb 11.2, Na 154, BUN 39, Cre 0.4, Glu 390 Meds Noted: Lovenox, Zofran Skin: No pressure injuries Additional Notes: Tolerating tube feeding well. Minimal residuals. Continue with current orders. Monitor tube feeding, rate, tolerance, wt, labs. Follow up every Sunday and Sunday.
[2023-04-20 12:31] LABS: Glucose Point of Care 391 mg/dl (65-105)
[2023-04-20 14:16] LABS: Sodium 156 mmol/L (137-145)
--- NOTE | 2023-04-20 14:49 | PM.IMPN ---
Progress Note: A&P Assessment and Plan (1) Urinary tract infection: Code(s): N39.0 - Urinary tract infection, site not specified Status: Acute (2) Pneumonia: Qualifiers: Laterality: left Lung location: lower lobe of lung Pneumonia type: due to unspecified organism Qualified Code(s): J18.9 - Pneumonia, unspecified organism Code(s): J18.9 - Pneumonia, unspecified organism Status: Acute (3) COPD with acute exacerbation: Code(s): J44.1 - Chronic obstructive pulmonary disease with (acute) exacerbation Status: Acute Plan 77-year-old female with history of CVA bed-bound status present with shortness of breath. She does report to be wheezy and [facility]bul[facility] the [facility]. WBC 14.7 hemoglobin 10.7 UA positive with 51-100 WBC suggestive of UTI. Has baseline right-sided deficits G-tube in-situ bedbound status chronic respiratory failure due to COPD on 2 L oxygen nasal cannula continuous minimally verbal. UTI treated with micafungin for fungal UTI detected recently mild chronic anemia thrombocytosis chronic Tam mild hyponatremia noted. BNP 235 which is about baseline. Nasal MRSA swab negative influenza COVID RSV negative. Chest x-ray with worsening bilateral airspace disease may represent atelectasis aspiration or pneumonia possible small bilateral pleural effusion mild interstitial edema. DVT prophylaxis Lovenox. On cefepime vancomycin for possible pneumonia pancultured. Will stop IV fluids. ABG adequate. Lactic acid was normal will exchange Tam. Uses BiPAP at night and senior living. Stopped IV vancomycin. Possible COPD exacerbation started on IV steroid received a dose Lasix. Hypernatremic today. Will increase free water flushes to 250 cc every 4 hours and monitor sodium level every 4 hours. With hyperglycemia will be able to do D5 water. 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 She does report to be wheezy and received nebulizer treatment at the senior living. WBC 14.7 hemoglobin 10.7 UA positive with 51-100 WBC suggestive of UTI. Has baseline right-sided deficits G-tube in-situ bedbound status chronic respiratory failure due to COPD on 2 L oxygen nasal cannula continuous minimally verbal. UTI treated with micafungin for fungal UTI detected recently mild chronic anemia thrombocytosis chronic Tam mild hyponatremia noted. BNP 235 which is about baseline. Nasal MRSA swab negative influenza COVID RSV negative. Chest x-ray with worsening bilateral airspace disease may represent atelectasis aspiration or pneumonia possible small bilateral pleural effusion mild interstitial edema. DVT prophylaxis Lovenox. On cefepime vancomycin for possible pneumonia pancultured. Will stop IV fluids. Check ABG lactic acid 1229/23: Tachycardic. Labs reviewed. Remains confused. Remains afebrile. Sodium level has gone up. Review of Systems Review of Systems: ROS unobtainable: Yes unobtainable due to medical condition Exam Narrative: GENERAL: ? Chronically ill-appearing, well-nourished, and in no acute distress. HEAD: Normocephalic, atraumatic. EYES: PERRL and EOMI. ENT:? Mucous membranes dry. NECK: Supple. tracheostomy scar CHEST: Coarse breath sound No respiratory distress. HEART: Mild tachycardia, normal peripheral pulses. ABDOMEN: Soft, nontender, nondistendeds. G-tube in-situ EXTREMITIES:
[2023-04-20] MEDS: ACETAMINOPHEN 500 MG TABLET FEED TUBE (15:40)
[2023-04-20] MEDS: SCOPOLAMINE 1 MG PATCH 1 PATCH TRANSDERM (15:41)
[2023-04-20] MEDS: FAMOTIDINE 20 MG TABLET FEED TUBE (17:21)
[2023-04-20] MEDS: DOCUSATE SODIUM LIQ 100 MG/10 ML UDC FEED TUBE (17:21)
[2023-04-20] MEDS: DICLOFENAC SODIUM 1% 100 GM GEL (*BKC) 1 APPLIC TOPICAL ×2 (17:22→20:37)
[2023-04-20 17:45] LABS: Glucose Point of Care 325 mg/dl (65-105)
[2023-04-20 18:13] LABS: Sodium 155 mmol/L (137-145)
[2023-04-20] MEDS: MIRTAZAPINE 7.5 MG TABLET FEED TUBE (20:35)
[2023-04-20 21:07] LABS: Sodium 155 mmol/L (137-145)
[2023-04-20] MEDS: FLUTICASONE/SALMETEROL 45-21 MCG INHALER 1 PUFF 2 PUFF INHALATION (21:57)
[2023-04-20 23:55] LABS: Glucose Point of Care 324 mg/dl (65-105)
[2023-04-21] VITALS (22 sets, daily range): BP systolic 100–132; BP diastolic 63–94; PULSE 93–132; RESP 22–44; TEMP 36.6–36.9; O2SAT 96–100
[2023-04-21] MEDS: IPRATROPIUM BR 0.02% INH SOLN 0.5 MG/2.5 ML VIAL INHALATION ×4 (03:14→21:46)
[2023-04-21] MEDS: ALBUTEROL SULFATE NEB 2.5 MG/3 ML INH INHALATION ×4 (03:14→21:46)
[2023-04-21] MEDS: MICAFUNGIN SODIUM 100 MG in SODIUM CHLORIDE 0.9% IV 100 ML IVPB (04:36)
[2023-04-21 04:47] LABS: Hemoglobin 11.1 g/dL (12.0-15.0); Immature Granulocyte Absolute 0.04 K/mm3 (0.00-0.031); Immature Granulocyte Percent A 0.5 % (0-0.5); Lymphocytes Absolute Auto 0.26 K/mm3 (0.9-3.2); Lymphocytes Percent Auto 3.2 % (18.3-44.2); Mean Corpuscular HGB Conc 27.8 g/dl (32-36); Mean Corpuscular Hemoglobin 27.5 pg (26-34); Mean Platelet Volume 10.5 fl (7.4-10.4); Monocytes Absolute Auto 0.6 K/mm3 (0.1-0.6); Monocytes Percent Auto 7.5 % (2.6-8.5); Neutrophils Absolute Auto 7.2 K/mm3 (1.3-6.7); Neutrophils Percent Auto 88.8 % (45.5-73.1); Nucleated Red Blood Cells Perc 0.5 % (0.0-0.2); Platelet Count Result 474 k/mm3 (150-375); Red Blood Count 4.04 M/mm3 (4.2-5.4); Red Cell Distribution Width 18.7 % (11.5-14.5); White Blood Count 8.1 K/mm3 (4.5-10.0)
[2023-04-21 04:55] LABS: Alveolar/Arterial O2 Gradient 60.7 mmHg; Base Excess ABG 11.5 mEq/l (+/-2.0); Carboxyhemoglobin 0.9 % THb (0-2.0); Fractional Inspired Oxygen 28 %; Methemoglobin ABG 0.3 %THb (0-1.5); Oxygen Content ABG 15.8 %vol (16.0-22.0); Oxygen Saturation ABG 93.9 % (95.0-100.0); Oxyhemoglobin 91.4 % THb (90.0-100.0); PCO2 ABG 58.9 mmHg (35.0-45.0); PO2 ABG 69.4 mmHg (80.0-100.0); PO2 FiO2 Ratio Arterial Blood 2.48 %; Reduced Hemoglobin 7.4 %THb (0-5.0); Total Hemoglobin 12.3 g/dL (12.0-18.0); pH ABG 7.428 (7.350-7.450)
[2023-04-21 04:56] LABS: Device OTHER DEVICE; Modified Allen's Test Pass; Site Drawn LEFT RADIAL
[2023-04-21 05:02] LABS: Alanine Aminotransferase 13 U/L (6-35); Albumin Level 3.7 g/dL (3.5-5.1); Alkaline Phosphatase 89 U/L (38-126); Anion Gap 5 mmol/L (8-16); Aspartate Amino Transferase 16 U/L (14-36); Bilirubin,Total 0.6 mg/dL (0.2-1.3); Blood Urea Nitrogen 43 mg/dL (7-17); Calcium 9.8 mg/dL (8.4-10.2); Carbon Dioxide 38 mmol/L (22-30); Chloride 114 mmol/L (98-107); Estimated CRCL calculation 72 ml/min; Estimated Glomerular Filt Rate > 60; Glucose 393 mg/dL (65-110); Magnesium 2.6 mg/dL (1.6-2.3); Sodium 157 mmol/L (137-145)
--- NOTE | 2023-04-21 05:09 | PM.EVENT ---
Event Note Event Note Event Note: Called by nurse approx 0400. Pt overnight becoming increasingly tachypneic. ABG requested, demonstrates a PCO2 of 58.9 - likely due to her decreased respiratory drive. Pt had been wearing BIPAP at night. AVAPS mode placed with 26/12 - 6EPAP and tidal volume 480. CXR pending. Repeat VBG at 0900. Pt's sodium also rising to 157. In addition to free water flushes will add D5W @ 150ml/hr. Insulin can be given for hypernatremia. Continue q4hr BMP.
[2023-04-21 05:46] LABS: Glucose Point of Care 351 mg/dl (65-105)
[2023-04-21] MEDS: CEFEPIME 2 GM/NS 50 ML 2 GM/50 ML BAG IVPB ×3 (06:02→22:15)
[2023-04-21] MEDS: DEXTROSE 5% 1,000 ML 1,000 ML 150 ML IV CONT ×3 (06:02→22:14)
[2023-04-21] MEDS: INSULIN ASPART (*BKC) 100 UNITS/ML SUB-Q ×4 (06:18→17:55)
[2023-04-21] MEDS: methylPREDNISolone SOD SUCC 40 MG VIAL IV PUSH (06:21)
[2023-04-21 07:47] LABS: Glucose Point of Care 374 mg/dl (65-105)
[2023-04-21 08:25] LABS: Sodium 156 mmol/L (137-145)
[2023-04-21] MEDS: amLODIPine BESYLATE 5 MG TABLET 10 MG FEED TUBE (08:32)
[2023-04-21] MEDS: FAMOTIDINE 20 MG TABLET FEED TUBE ×2 (08:32→17:23)
[2023-04-21] MEDS: METOPROLOL TARTRATE 12.5 MG TABLET 37.5 MG FEED TUBE ×2 (08:33→22:14)
[2023-04-21] MEDS: INSULIN GLARGINE (*BKC) 100 UNITS/ML 30 UNITS SUB-Q (08:36)
[2023-04-21] MEDS: DICLOFENAC SODIUM 1% 100 GM GEL (*BKC) 1 APPLIC TOPICAL ×4 (08:49→22:16)
[2023-04-21] MEDS: DOCUSATE SODIUM LIQ 100 MG/10 ML UDC FEED TUBE ×2 (08:57→17:23)
[2023-04-21] MEDS: ENOXAPARIN 40 MG/0.4 ML SYRINGE SUB-Q (08:57)
[2023-04-21] MEDS: levETIRAcetam ORAL SOL 500 MG/5 ML UDC 750 MG FEED TUBE ×2 (11:44→22:32)
[2023-04-21] MEDS: INSULIN ASPART (*BKC) 100 UNITS/ML 10 UNITS SUB-Q ×2 (11:47→17:52)
[2023-04-21 11:54] LABS: Glucose Point of Care 379 mg/dl (65-105)
[2023-04-21 12:13] LABS: Sodium 153 mmol/L (137-145)
--- NOTE | 2023-04-21 12:52 | PM.IMPN ---
Progress Note: A&P Assessment and Plan (1) Urinary tract infection: Code(s): N39.0 - Urinary tract infection, site not specified Status: Acute (2) Pneumonia: Qualifiers: Laterality: left Lung location: lower lobe of lung Pneumonia type: due to unspecified organism Qualified Code(s): J18.9 - Pneumonia, unspecified organism Code(s): J18.9 - Pneumonia, unspecified organism Status: Acute (3) COPD with acute exacerbation: Code(s): J44.1 - Chronic obstructive pulmonary disease with (acute) exacerbation Status: Acute Plan 77-year-old female with history of CVA bed-bound status present with shortness of breath. She does report to be wheezy and received [facility]bulizer treatment at the [facility]. WBC 14.7 hemoglobin 10.7 UA positive with 51-100 WBC suggestive of UTI. Has baseline right-sided deficits G-tube in-situ bedbound status chronic respiratory failure due to COPD on 2 L oxygen nasal cannula continuous minimally verbal. UTI treated with micafungin for fungal UTI detected recently mild chronic anemia thrombocytosis chronic Tam mild hyponatremia noted. BNP 235 which is about baseline. Nasal MRSA swab negative influenza COVID RSV negative. Chest x-ray with worsening bilateral airspace disease may represent atelectasis aspiration or pneumonia possible small bilateral pleural effusion mild interstitial edema. DVT prophylaxis Lovenox. On cefepime vancomycin for possible pneumonia pancultured. Will stop IV fluids. ABG adequate. Lactic acid was normal will exchange Tam. Uses BiPAP at night and [facility]. Stopped IV vancomycin. Possible COPD exacerbation started on IV steroid received a dose Lasix. Hypernatremic today. Increased free water flushes to 250 cc every 4 hours and monitor sodium level every 4 hours. Sodium level remained elevated. D5 water added overnight which will be continued. Will up titrate insulin for hyperglycemia. Discussed with pharmacist. G-tube in situ to feed continue tube feeding with water flushes as ordered. Chronic respiratory failure requiring 2 L oxygen via nasal cannula continuous with acute on chronic on BiPAP p.r.n. 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 Insulin adjusted as ordered Chronically L with multiple readmissions goals of care DVT prophylaxis Lovenox Code status do not resuscitate Subjective Date/time seen: 04/21/23 12:52 Interval history: 77-year-old female with history of CVA bed-bound status present with shortness of breath. She does report to be wheezy and received [facility]bulizer treatment at the [facility]. WBC 14.7 hemoglobin 10.7 UA positive with 51-100 WBC suggestive of UTI. Has baseline right-sided deficits G-tube in-situ bedbound status chronic respiratory failure due to COPD on 2 L oxygen nasal cannula continuous minimally verbal. UTI treated with micafungin for fungal UTI detected recently mild chronic anemia thrombocytosis chronic Tam mild hyponatremia noted. BNP 235 which is about baseline. Nasal MRSA swab negative influenza COVID RSV negative. Chest x-ray with worsening bilateral airspace disease may represent atelectasis aspiration or pneumonia possible small bilateral pleural effusion mild interstitial edema. DVT prophylaxis Lovenox. On cefepime vancomycin for possible pneumonia pancultured. Will stop IV fluids. Check ABG lactic acid 1229/23: Tachycardic. Labs reviewed. Remains confused. Remains afebrile. Sodium level has gone up. 04/21/2023: Overnight events noted. On BiPAP. Mildly tachycardic. Sodium level reviewed. Discussed with the nursing staff. Review of Systems Review of Systems: ROS unobtainable: Yes unobtainable due to medical condition Exam Narrative:
[2023-04-21 15:22] LABS: Sodium 153 mmol/L (137-145)
[2023-04-21] MEDS: ACETAMINOPHEN 500 MG TABLET FEED TUBE (17:22)
[2023-04-21 17:58] LABS: Glucose Point of Care 349 mg/dl (65-105)
[2023-04-21 21:12] LABS: Sodium 149 mmol/L (137-145)
[2023-04-21] MEDS: MIRTAZAPINE 7.5 MG TABLET FEED TUBE (22:15)
[2023-04-22] VITALS (19 sets, daily range): BP systolic 117–136; BP diastolic 69–82; PULSE 84–117; RESP 20–36; TEMP 36.3–36.8; O2SAT 93–100
[2023-04-22 00:27] LABS: Glucose Point of Care 262 mg/dl (65-105)
[2023-04-22] MEDS: INSULIN ASPART (*BKC) 100 UNITS/ML SUB-Q ×2 (00:46→08:24)
[2023-04-22] MEDS: INSULIN ASPART (*BKC) 100 UNITS/ML 10 UNITS SUB-Q ×2 (00:46→08:23)
[2023-04-22] MEDS: ALBUTEROL SULFATE NEB 2.5 MG/3 ML INH INHALATION ×4 (03:50→21:09)
[2023-04-22] MEDS: IPRATROPIUM BR 0.02% INH SOLN 0.5 MG/2.5 ML VIAL INHALATION ×4 (03:50→21:09)
[2023-04-22 04:59] LABS: Basophils Percent Auto 0.1 % (0.2-1.2); Hematocrit 36.5 % (37.0-47.0); Hemoglobin 10.1 g/dL (12.0-15.0); Immature Granulocyte Absolute 0.09 K/mm3 (0.00-0.031); Immature Granulocyte Percent A 0.6 % (0-0.5); Lymphocytes Absolute Auto 1.12 K/mm3 (0.9-3.2); Lymphocytes Percent Auto 7.4 % (18.3-44.2); Mean Corpuscular HGB Conc 27.7 g/dl (32-36); Mean Corpuscular Hemoglobin 27.8 pg (26-34); Mean Corpuscular Volume 100.6 fl (80-100); Mean Platelet Volume 10.9 fl (7.4-10.4); Monocytes Absolute Auto 1.2 K/mm3 (0.1-0.6); Monocytes Percent Auto 7.9 % (2.6-8.5); Neutrophils Absolute Auto 12.7 K/mm3 (1.3-6.7); Nucleated Red Blood Cells Absolute Auto 0.1 K/mm3 (0.0-0.012); Nucleated Red Blood Cells Perc 0.6 % (0.0-0.2); Platelet Count Result 296 k/mm3 (150-375); Red Blood Count 3.63 M/mm3 (4.2-5.4); White Blood Count 15.1 K/mm3 (4.5-10.0)
[2023-04-22 05:14] LABS: Alanine Aminotransferase 12 U/L (6-35); Albumin Level 3.2 g/dL (3.5-5.1); Alkaline Phosphatase 80 U/L (38-126); Anion Gap 7 mmol/L (8-16); Aspartate Amino Transferase 20 U/L (14-36); Bilirubin,Total 0.6 mg/dL (0.2-1.3); Blood Urea Nitrogen 38 mg/dL (7-17); Calcium 9.3 mg/dL (8.4-10.2); Carbon Dioxide 29 mmol/L (22-30); Chloride 108 mmol/L (98-107); Estimated CRCL calculation 112 ml/min; Estimated Glomerular Filt Rate > 60; Glucose 235 mg/dL (65-110); Magnesium 2.6 mg/dL (1.6-2.3); Sodium 144 mmol/L (137-145)
[2023-04-22 05:33] LABS: Platelet Estimate Adequate (Adequate)
[2023-04-22 05:35] LABS: Anisocytosis 1+ (NORMAL); Hypochromasia 1+ (NORMAL); Large Platelets Present
[2023-04-22 05:36] LABS: Schistocytes Rare (NORMAL)
[2023-04-22] MEDS: MICAFUNGIN SODIUM 100 MG in SODIUM CHLORIDE 0.9% IV 100 ML IVPB (05:49)
[2023-04-22 07:38] LABS: Legionella pneumophila Ag Ur Not Detected (Not Detected)
[2023-04-22] MEDS: CEFEPIME 2 GM/NS 50 ML 2 GM/50 ML BAG IVPB ×2 (08:23→17:35)
[2023-04-22] MEDS: METOPROLOL TARTRATE 12.5 MG TABLET 37.5 MG FEED TUBE ×2 (08:27→20:47)
[2023-04-22] MEDS: FAMOTIDINE 20 MG TABLET FEED TUBE ×2 (08:28→17:30)
[2023-04-22] MEDS: INSULIN GLARGINE (*BKC) 100 UNITS/ML 30 UNITS SUB-Q (08:30)
[2023-04-22] MEDS: DICLOFENAC SODIUM 1% 100 GM GEL (*BKC) 1 APPLIC TOPICAL ×4 (08:36→21:05)
[2023-04-22] MEDS: ENOXAPARIN 40 MG/0.4 ML SYRINGE SUB-Q (08:36)
[2023-04-22] MEDS: amLODIPine BESYLATE 5 MG TABLET 10 MG FEED TUBE (08:36)
[2023-04-22] MEDS: DOCUSATE SODIUM LIQ 100 MG/10 ML UDC FEED TUBE ×2 (08:36→17:35)
[2023-04-22 09:07] LABS: Sodium 145 mmol/L (137-145)
[2023-04-22] MEDS: FLUTICASONE/SALMETEROL 45-21 MCG INHALER 1 PUFF 2 PUFF INHALATION (09:32)
[2023-04-22] MEDS: levETIRAcetam ORAL SOL 500 MG/5 ML UDC 750 MG FEED TUBE ×2 (11:56→20:48)
[2023-04-22 12:11] LABS: Glucose Point of Care 117 mg/dl (65-105)
--- NOTE | 2023-04-22 13:43 | PM.IMPN ---
Progress Note: A&P Assessment and Plan (1) Urinary tract infection: Code(s): N39.0 - Urinary tract infection, site not specified Status: Acute (2) Pneumonia: Qualifiers: Laterality: left Lung location: lower lobe of lung Pneumonia type: due to unspecified organism Qualified Code(s): J18.9 - Pneumonia, unspecified organism Code(s): J18.9 - Pneumonia, unspecified organism Status: Acute (3) COPD with acute exacerbation: Code(s): J44.1 - Chronic obstructive pulmonary disease with (acute) exacerbation Status: Acute Plan 77-year-old female with history of CVA bed-bound status present with shortness of breath. She does report to be wheezy and received nebulizer treatment at the [facility]. WBC 14.7 hemoglobin 10.7 UA positive with 51-100 WBC suggestive of UTI. Has baseline right-sided deficits G-tube in-situ bedbound status chronic respiratory failure due to COPD on 2 L oxygen nasal cannula continuous minimally verbal. UTI treated with micafungin for fungal UTI detected recently. Repeat urine culture growing Bree tropicalis. Mild chronic anemia thrombocytosis chronic Tam. BNP 235 which is about baseline. Nasal MRSA swab negative influenza COVID RSV negative. Chest x-ray with worsening bilateral airspace disease may represent atelectasis aspiration or pneumonia possible small bilateral pleural effusion mild interstitial edema. DVT prophylaxis Lovenox. On cefepime vancomycin for possible pneumonia pancultured. Stop the IV fluids aBG adequate. Lactic acid was normal exchanged Tam. Uses BiPAP at night and [facility]. Stopped IV vancomycin. Possible COPD exacerbation started on IV steroid received a dose Lasix. Hypernatremia worsened started on free water flushes and added D5 water. Hypernatremia resolved today. Back off on D5 water. Adjust insulin dosing. G-tube in situ to feed continue tube feeding with water flushes as ordered. Chronic respiratory failure requiring 2 L oxygen via nasal cannula continuous with acute on chronic on BiPAP p.r.n. 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 Insulin adjusted as ordered will slowly back off Chronically L with multiple readmissions goals of care DVT prophylaxis Lovenox Code status do not resuscitate Subjective Date/time seen: 04/22/23 13:43 Interval history: 77-year-old female with history of CVA bed-bound status present with shortness of breath. She does report to be wheezy and received nebulizer treatment at the [facility]. WBC 14.7 hemoglobin 10.7 UA positive with 51-100 WBC suggestive of UTI. Has baseline right-sided deficits G-tube in-situ bedbound status chronic respiratory failure due to COPD on 2 L oxygen nasal cannula continuous minimally verbal. UTI treated with micafungin for fungal UTI detected recently mild chronic anemia thrombocytosis chronic Tam mild hyponatremia noted. BNP 235 which is about baseline. Nasal MRSA swab negative influenza COVID RSV negative. Chest x-ray with worsening bilateral airspace disease may represent atelectasis aspiration or pneumonia possible small bilateral pleural effusion mild interstitial edema. DVT prophylaxis Lovenox. On cefepime vancomycin for possible pneumonia pancultured. Will stop IV fluids. Check ABG lactic acid 1229/23: Tachycardic. Labs reviewed. Remains confused. Remains afebrile. Sodium level has gone up. 04/21/2023: Overnight events noted. On BiPAP. Mildly tachycardic. Sodium level reviewed. Discussed with the nursing staff. 04/22/2023: No overnight events noted. On BiPAP intermittently gets off BiPAP and remains on oxygen labs and x-ray reviewed. Sodium level has normalized. Stop D5 water. Blood sugars are improved.
[2023-04-22] MEDS: DEXTROSE 50% 25 GM/50 ML SYRINGE IV PUSH (14:51)
[2023-04-22] MEDS: DEXTROSE 5% 1,000 ML 1,000 ML 100 ML IV CONT (14:51)
[2023-04-22] MEDS: DEXTROSE 50% 25 GM/50 ML SYRINGE (15:24)
[2023-04-22] MEDS: GLUCAGON FOR INJ 1 MG VIAL IM (15:33)
[2023-04-22 15:54] LABS: Glucose Point of Care 62 mg/dl (65-105)
[2023-04-22 15:54] LABS: Glucose Point of Care 59 mg/dl (65-105)
[2023-04-22 15:54] LABS: Glucose Point of Care 73 mg/dl (65-105)
[2023-04-22 15:54] LABS: Glucose Point of Care 53 mg/dl (65-105)
[2023-04-22 15:54] LABS: Glucose Point of Care 71 mg/dl (65-105)
[2023-04-22 15:54] LABS: Glucose Point of Care 63 mg/dl (65-105)
[2023-04-22 16:21] LABS: Glucose Point of Care 125 mg/dl (65-105)
--- NOTE | 2023-04-22 18:26 | PC.NURSE ---
at 1518 pt blood sugar was 53. rapid response was called. pt iv went bad. could not push dextrose. commercial housekeeper placed new iv, pushed dextrose. iv went bad while pushing dextrose. glucose given IM by charge nurse. Jordan called out to place midline. recheck blood sugar and glucose was 125. once summit placed midline, started pt on D5 fluids.
[2023-04-22] MEDS: MIRTAZAPINE 7.5 MG TABLET FEED TUBE (20:47)
[2023-04-23] VITALS (26 sets, daily range): BP systolic 92–115; BP diastolic 52–76; PULSE 91–121; RESP 20–47; TEMP 35.9–38.1; O2SAT 90–100
[2023-04-23 00:14] LABS: Glucose Point of Care 261 mg/dl (65-105)
[2023-04-23] MEDS: INSULIN ASPART (*BKC) 100 UNITS/ML SUB-Q ×2 (00:21→05:53)
[2023-04-23] MEDS: CEFEPIME 2 GM/NS 50 ML 2 GM/50 ML BAG IVPB ×2 (01:46→11:52)
[2023-04-23] MEDS: ALBUTEROL SULFATE NEB 2.5 MG/3 ML INH INHALATION (02:16)
[2023-04-23] MEDS: IPRATROPIUM BR 0.02% INH SOLN 0.5 MG/2.5 ML VIAL INHALATION ×4 (02:16→21:22)
[2023-04-23 03:10] LABS: Alveolar/Arterial O2 Gradient 94.4 mmHg; Fractional Inspired Oxygen 30 %; Oxygen Content ABG 15.2 %vol (16.0-22.0); Oxygen Saturation ABG 89.6 % (95.0-100.0); PO2 ABG 57.2 mmHg (80.0-100.0); PO2 FiO2 Ratio Arterial Blood 1.91 %; Total Hemoglobin 12.3 g/dL (12.0-18.0); pH ABG 7.412 (7.350-7.450)
[2023-04-23 03:12] LABS: Modified Allen's Test Pass; Oxyhemoglobin 87.8 % THb (90.0-100.0); Site Drawn LEFT RADIAL
[2023-04-23 03:13] LABS: Non-Invasive Expiratory Pressure 6 CMH2O; Non-Invasive Vent Rate 15 /MIN
[2023-04-23 03:14] LABS: Device NON-INVASIVE VENT
[2023-04-23] MEDS: MORPHINE SULFATE (*CRX) 2 MG/ML INJ IV PUSH (03:35)
[2023-04-23] MEDS: MICAFUNGIN SODIUM 100 MG in SODIUM CHLORIDE 0.9% IV 100 ML IVPB (03:44)
[2023-04-23 05:22] LABS: Glucose Point of Care 246 mg/dl (65-105)
[2023-04-23 05:55] LABS: Basophils Percent Auto 0.1 % (0.2-1.2); Eosinophils Percent Auto 0.2 % (0-4.4); Hematocrit 37.1 % (37.0-47.0); Hemoglobin 10.8 g/dL (12.0-15.0); Immature Granulocyte Absolute 0.13 K/mm3 (0.00-0.031); Immature Granulocyte Percent A 0.7 % (0-0.5); Lymphocytes Absolute Auto 0.43 K/mm3 (0.9-3.2); Lymphocytes Percent Auto 2.4 % (18.3-44.2); Mean Corpuscular HGB Conc 29.1 g/dl (32-36); Mean Corpuscular Hemoglobin 28.3 pg (26-34); Mean Corpuscular Volume 97.1 fl (80-100); Mean Platelet Volume 10.7 fl (7.4-10.4); Monocytes Absolute Auto 0.7 K/mm3 (0.1-0.6); Monocytes Percent Auto 3.6 % (2.6-8.5); Nucleated Red Blood Cells Absolute Auto 0.1 K/mm3 (0.0-0.012); Nucleated Red Blood Cells Perc 0.6 % (0.0-0.2); Platelet Count Result 271 k/mm3 (150-375); Red Blood Count 3.82 M/mm3 (4.2-5.4); Red Cell Distribution Width 18.4 % (11.5-14.5); White Blood Count 18.2 K/mm3 (4.5-10.0)
[2023-04-23 06:14] LABS: Alanine Aminotransferase 13 U/L (6-35); Albumin Level 2.6 g/dL (3.5-5.1); Alkaline Phosphatase 90 U/L (38-126); Anion Gap 7 mmol/L (8-16); Aspartate Amino Transferase 21 U/L (14-36); Bilirubin,Total 0.6 mg/dL (0.2-1.3); Blood Urea Nitrogen 31 mg/dL (7-17); Calcium 8.6 mg/dL (8.4-10.2); Carbon Dioxide 28 mmol/L (22-30); Chloride 104 mmol/L (98-107); Estimated CRCL calculation 154 ml/min; Estimated Glomerular Filt Rate > 60; Glucose 266 mg/dL (65-110); Magnesium 2.2 mg/dL (1.6-2.3); Potassium 4.7 mmol/L (3.4-5.0); Sodium 139 mmol/L (137-145)
[2023-04-23 06:41] LABS: Pneumococcal Antigen Urine Not Detected (Not Detected)
[2023-04-23] MEDS: FAMOTIDINE 20 MG TABLET FEED TUBE ×2 (08:27→16:22)
[2023-04-23] MEDS: DICLOFENAC SODIUM 1% 100 GM GEL (*BKC) 1 APPLIC TOPICAL ×4 (08:27→20:36)
[2023-04-23] MEDS: METOPROLOL TARTRATE 50 MG TAB FEED TUBE (08:27)
[2023-04-23] MEDS: amLODIPine BESYLATE 5 MG TABLET 10 MG FEED TUBE (08:27)
[2023-04-23] MEDS: ENOXAPARIN 40 MG/0.4 ML SYRINGE SUB-Q (08:28)
[2023-04-23] MEDS: DOCUSATE SODIUM LIQ 100 MG/10 ML UDC FEED TUBE ×2 (08:31→16:24)
[2023-04-23] MEDS: LEVALBUTEROL NEB 1.25 MG/3 ML INHALATION ×3 (09:04→21:23)
--- NOTE | 2023-04-23 09:15 | PC.NURSE ---
This patient, Gabriela Aguayo, was transferred to IMU [id number] on 04/23/23 at 0915. Personal belongings sent with patient. Report given to Coral SIN. Appropriate documentation sent with patient.
--- NOTE | 2023-04-23 10:16 | PC.NURSE ---
This patient, Gabriela Aguayo, was received from [ [id number]] on 04/23/23 at 0920. Patient/family oriented to unit policies and routines
[2023-04-23] MEDS: methylPREDNISolone SOD SUCC 40 MG VIAL IV PUSH ×2 (11:51→20:35)
[2023-04-23] MEDS: levETIRAcetam ORAL SOL 500 MG/5 ML UDC 750 MG FEED TUBE ×2 (11:51→23:13)
[2023-04-23] MEDS: FUROSEMIDE INJ 40 MG/4 ML VIAL IV PUSH (11:51)
[2023-04-23 13:11] LABS: Glucose Point of Care 177 mg/dl (65-105)
[2023-04-23 13:11] LABS: Glucose Point of Care 196 mg/dl (65-105)
--- NOTE | 2023-04-23 14:29 | PM.IMPN ---
Progress Note: A&P Assessment and Plan (1) Urinary tract infection: Code(s): N39.0 - Urinary tract infection, site not specified Status: Acute (2) Pneumonia: Qualifiers: Laterality: left Lung location: lower lobe of lung Pneumonia type: due to unspecified organism Qualified Code(s): J18.9 - Pneumonia, unspecified organism Code(s): J18.9 - Pneumonia, unspecified organism Status: Acute (3) COPD with acute exacerbation: Code(s): J44.1 - Chronic obstructive pulmonary disease with (acute) exacerbation Status: Acute Plan 77-year-old female with history of CVA bed-bound status present with shortness of breath. She does report to be wheezy and [facility]. WBC 14.7 hemoglobin 10.7 UA positive with 51-100 WBC suggestive of UTI. Has baseline right-sided deficits G-tube in-situ bedbound status chronic respiratory failure due to COPD on 2 L oxygen nasal cannula continuous minimally verbal. UTI treated with micafungin for fungal UTI detected recently. Repeat urine culture growing Bree tropicalis. Mild chronic anemia thrombocytosis chronic Tam. BNP 235 which is about baseline. Nasal MRSA swab negative influenza COVID RSV negative. Chest x-ray with worsening bilateral airspace disease may represent atelectasis aspiration or pneumonia possible small bilateral pleural effusion mild interstitial edema. DVT prophylaxis Lovenox. On cefepime vancomycin for possible pneumonia pancultured. Stop the IV fluids aBG adequate. Lactic acid was normal exchanged Tam. Uses BiPAP at night and [facility]. Stopped IV vancomycin. Possible COPD exacerbation started on IV steroid received a dose Lasix. Hypernatremia worsened started on free water flushes and added D5 water. Hypernatremia resolved. G-tube in situ to feed continue tube feeding with water flushes as ordered. Acute on chronic respiratory failure requiring 2 L oxygen via nasal cannula continuous with acute on chronic on BiPAP p.r.n. requiring quite frequently BiPAP CTA done ruled out PE but showed airspace past is a right lower lobe and right middle lobe consistent with pneumonia will add metronidazole for anaerobic coverage of continue on now cefepime as ordered. Did improve while on cefepime was switched to meropenem. Steroid IV restart for COPD exacerbation. 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 Insulin adjusted as ordered will slowly back off Chronically L with multiple readmissions goals of care DVT prophylaxis Lovenox Code status do not resuscitate Subjective Date/time seen: 04/23/23 14:29 Interval history: 77-year-old female with history of CVA bed-bound status present with shortness of breath. She does report to be wheezy and [facility]. WBC 14.7 hemoglobin 10.7 UA positive with 51-100 WBC suggestive of UTI. Has baseline right-sided deficits G-tube in-situ bedbound status chronic respiratory failure due to COPD on 2 L oxygen nasal cannula continuous minimally verbal. UTI treated with micafungin for fungal UTI detected recently mild chronic anemia thrombocytosis chronic Tam mild hyponatremia noted. BNP 235 which is about baseline. Nasal MRSA swab negative influenza COVID RSV negative. Chest x-ray with worsening bilateral airspace disease may represent atelectasis aspiration or pneumonia possible small bilateral pleural effusion mild interstitial edema. DVT prophylaxis Lovenox. On cefepime vancomycin for possible pneumonia pancultured. Will stop IV fluids. Check ABG lactic acid 1229/23: Tachycardic. Labs reviewed. Remains confused. Remains afebrile. Sodium level has gone up. 04/21/2023: Ov
[2023-04-23] MEDS: MEROPENEM 1 GM/NS 100 ML 1 GM/100 ML BAG IVPB ×2 (16:21→23:13)
[2023-04-23] MEDS: SCOPOLAMINE 1 MG PATCH 1 PATCH TRANSDERM (16:23)
[2023-04-23 19:10] LABS: Glucose Point of Care 401 mg/dl (65-105)
[2023-04-23] MEDS: INSULIN ASPART (*BKC) 100 UNITS/ML 6 UNITS SUB-Q (19:57)
--- NOTE | 2023-04-23 22:49 | PC.NURSE ---
At 1930 rn noted that gastic bile was coming out around peg tube insertion. Tube feedings were stopped and DR. Cronin called to come and assess pt. Orders were given by Dr. Vogel to connect peg tube to suction and to hold tube feeding for now. GI consult was also ordered and pt's poa was updated luciano pt's condition. Pt's poa also stated that the pt. is not a DNR but a modified code no cpr. code status was changed per family requuest.
[2023-04-24] VITALS (35 sets, daily range): BP systolic 92–125; BP diastolic 59–79; PULSE 81–111; RESP 20–36; TEMP 36.1–36.9; O2SAT 94–100; BMI 22.4
[2023-04-24 00:09] LABS: Glucose Point of Care 303 mg/dl (65-105)
[2023-04-24] MEDS: INSULIN ASPART (*BKC) 100 UNITS/ML SUB-Q ×3 (00:11→11:45)
[2023-04-24] MEDS: LEVALBUTEROL NEB 1.25 MG/3 ML INHALATION ×6 (02:15→23:46)
[2023-04-24] MEDS: IPRATROPIUM BR 0.02% INH SOLN 0.5 MG/2.5 ML VIAL INHALATION ×6 (02:15→23:46)
[2023-04-24 05:17] LABS: Basophils Percent Auto 0.2 % (0.2-1.2); Hemoglobin 9.3 g/dL (12.0-15.0); Immature Granulocyte Percent A 1.1 % (0-0.5); Lymphocytes Absolute Auto 0.25 K/mm3 (0.9-3.2); Lymphocytes Percent Auto 0.9 % (18.3-44.2); Mean Corpuscular HGB Conc 29.1 g/dl (32-36); Mean Corpuscular Hemoglobin 27.6 pg (26-34); Mean Platelet Volume 10.7 fl (7.4-10.4); Monocytes Absolute Auto 0.3 K/mm3 (0.1-0.6); Monocytes Percent Auto 1.2 % (2.6-8.5); Neutrophils Absolute Auto 25.5 K/mm3 (1.3-6.7); Neutrophils Percent Auto 96.6 % (45.5-73.1); Nucleated Red Blood Cells Perc 0.1 % (0.0-0.2); Platelet Count Result 287 k/mm3 (150-375); Red Blood Count 3.37 M/mm3 (4.2-5.4); Red Cell Distribution Width 18.1 % (11.5-14.5); White Blood Count 26.4 K/mm3 (4.5-10.0)
[2023-04-24] MEDS: MICAFUNGIN SODIUM 100 MG in SODIUM CHLORIDE 0.9% IV 100 ML IVPB (05:19)
[2023-04-24 05:30] LABS: Alanine Aminotransferase 13 U/L (6-35); Albumin Level 2.8 g/dL (3.5-5.1); Alkaline Phosphatase 80 U/L (38-126); Anion Gap 4 mmol/L (8-16); Aspartate Amino Transferase 20 U/L (14-36); Bilirubin,Total 0.8 mg/dL (0.2-1.3); Blood Urea Nitrogen 36 mg/dL (7-17); Calcium 8.8 mg/dL (8.4-10.2); Carbon Dioxide 36 mmol/L (22-30); Chloride 103 mmol/L (98-107); Estimated CRCL calculation 112 ml/min; Estimated Glomerular Filt Rate > 60; Glucose 264 mg/dL (65-110); Magnesium 2.4 mg/dL (1.6-2.3); Potassium 4.4 mmol/L (3.4-5.0); Sodium 143 mmol/L (137-145)
[2023-04-24] MEDS: MEROPENEM 1 GM/NS 100 ML 1 GM/100 ML BAG IVPB ×3 (06:02→23:01)
[2023-04-24 07:31] LABS: Anisocytosis 2+ (NORMAL); Hypochromasia 3+ (NORMAL)
[2023-04-24 07:32] LABS: Schistocytes None Seen (NORMAL)
[2023-04-24 07:33] LABS: Target Cells 1+ (NORMAL)
[2023-04-24] MEDS: methylPREDNISolone SOD SUCC 40 MG VIAL IV PUSH (08:20)
[2023-04-24] MEDS: ENOXAPARIN 40 MG/0.4 ML SYRINGE SUB-Q (08:20)
[2023-04-24] MEDS: DICLOFENAC SODIUM 1% 100 GM GEL (*BKC) 1 APPLIC TOPICAL ×4 (08:22→20:11)
[2023-04-24] MEDS: VANCOMYCIN 1,500 MG/NS 500 ML 1,500 MG/500 ML BAG 250 MG IVPB (09:36)
--- NOTE | 2023-04-24 10:28 | PM.CNPUL ---
Assessment and Plan Assessment and plan (1) COPD (chronic obstructive pulmonary disease): Code(s): J44.9 - Chronic obstructive pulmonary disease, unspecified Status: Acute Assessment and Plan: Patient with severe upper lobe predominant panlobular emphysema on her CT scan. I have no PFTs. 04/24/23: I spoke with the hospitalist she has not had any recent wheezing and I am not convinced the patient has a active COPD exacerbation at this time. Plan: I will decrease the Solu-Medrol to 20 mg IV q.6 and if she is clinically stable will discontinue them on 04/25/2023. I will increase the frequency of her levalbuterol and ipratropium nebulizers to q.4 hours. I will add nebulized budesonide 500 mcg b.i.d. patient is been on a scopolamine patch from her living facility. This will decrease her secretions but is places the patient at risk for mucus plugging and I will discontinue today. The patient cannot expectorate phlegm at this point and I will give her a trial of vest therapy q.i.d.. I spoke with respiratory therapy. Patient may have aspiration pneumonia and agree with vancomycin and meropenem. Will follow with you. (2) Acute on chronic respiratory failure with hypoxia and hypercapnia: Code(s): J96.21 - Acute and chronic respiratory failure with hypoxia; J96.22 - Acute and chronic respiratory failure with hypercapnia Status: Acute Assessment and Plan: Patient with a history of COVID in April of 2022 required a tracheostomy and was admitted to an LTAC, [facility]. The daughter tells me she was de cannulated about 30 days later. Patient has a history of multiple aspiration events requiring intubation 4 times (, 01/27/2023, 02/12/2023, 03/25/2023, 04/04/2023). She is maintained on noninvasive ventilator at her living facility. She has continued chronic hypercarbic respiratory failure with a blood gas on 04/21/2023 on 2 L of 7.43/59/69. Plan: Patient has multiple intubations for presumed aspiration events in the past and currently she has a poor mental status at baseline and is decondition with an inability to raise her hands to her face to remove the BiPAP mask. This is a relative to have contraindication to continued noninvasive ventilation as she is at risk for aspiration and asphyxia because she cannot remove the mask. I spoke with GRACE Alexander and discussed 3 options. First: continued BiPAP use with the realization that she is at risk for recurrent aspirations and or intubations. Second: proceed with semi elective tracheostomy with admission to an LTAC for hopeful prolonged rehabilitation so that she become stronger and can protect her airway and cough over time. Third: comfort measures. The POA wished for semi elective tracheostomy with admission to LTAC. She stated the patient was at an LTAC in [facility] after her tracheostomy from her COVID in April of 2022. I explained that I am unsure which LTAC she would qualify for at this time. Discussed with hospitalist, Dr. Barkley. History of Present Illness History of Present Illness Consult date: 04/24/23 Chief complaint: UTI, Dehydration Narrative: 04/24/2023: This is a new pulmonary consult for chronic hypercarbic respiratory failure. COVNH in April 2022, requiring tracheostomy and PEG tube placement admitted to [place] in [facility] and decannulated approximately 4 weeks later., essential hypertension, GERD, seizures, COPD. Patient was admitted on 07/17/2022 and intubated for presumed aspiration pneumonia and respiratory failure, extubated on 07/21. Patient was admitted 02/12 for respiratory failure and admitted from 01/27/2023 and intubated through 02/07/2023. She had respiratory failure in house and was reintubated on 02/12 and extubated 02/17. On 03/25/2023 the patient was admitted to the hospital and transferred to higher level of care for concern for intercerebral hemorrhage. She was transfer
[2023-04-24] MEDS: levETIRAcetam ORAL SOL 500 MG/5 ML UDC 750 MG FEED TUBE ×2 (11:43→23:02)
[2023-04-24] MEDS: METOPROLOL TARTRATE 50 MG TAB FEED TUBE ×2 (11:44→20:10)
[2023-04-24 11:46] LABS: Glucose Point of Care 216 mg/dl (65-105)
--- NOTE | 2023-04-24 13:27 | PM.IMPN ---
Progress Note: A&P Assessment and Plan (1) Urinary tract infection: Code(s): N39.0 - Urinary tract infection, site not specified Status: Acute (2) Pneumonia: Qualifiers: Laterality: left Lung location: lower lobe of lung Pneumonia type: due to unspecified organism Qualified Code(s): J18.9 - Pneumonia, unspecified organism Code(s): J18.9 - Pneumonia, unspecified organism Status: Acute (3) COPD with acute exacerbation: Code(s): J44.1 - Chronic obstructive pulmonary disease with (acute) exacerbation Status: Acute Plan 77-year-old female with history of CVA bed-bound status present with shortness of breath. She does report to be wheezy and received nebulizer treatment at the [facility]. WBC 14.7 hemoglobin 10.7 UA positive with 51-100 WBC suggestive of UTI. Has baseline right-sided deficits G-tube in-situ bedbound status chronic respiratory failure due to COPD on 2 L oxygen nasal cannula continuous minimally verbal. UTI treated with micafungin for fungal UTI detected recently. Repeat urine culture growing Bree tropicalis. Mild chronic anemia thrombocytosis chronic Tam. BNP 235 which is about baseline. Nasal MRSA swab negative influenza COVID RSV negative. Chest x-ray with worsening bilateral airspace disease may represent atelectasis aspiration or pneumonia possible small bilateral pleural effusion mild interstitial edema. DVT prophylaxis Lovenox. On cefepime vancomycin for possible pneumonia pancultured. Stop the IV fluids aBG adequate. Lactic acid was normal exchanged Tam. Uses BiPAP at night and [facility]. Stopped IV vancomycin. Possible COPD exacerbation started on IV steroid received a dose Lasix. Hypernatremia worsened started on free water flushes and added D5 water. Hypernatremia resolved. G-tube in situ to feed continue tube feeding with water flushes as ordered. Acute on chronic respiratory failure requiring 2 L oxygen via nasal cannula continuous with acute on chronic on BiPAP p.r.n. requiring quite frequently BiPAP CTA done ruled out PE but showed airspace past is a right lower lobe and right middle lobe consistent with pneumonia will add metronidazole for anaerobic coverage of continue on now cefepime as ordered. Did improve while on cefepime was switched to meropenem. Steroid IV restart for COPD exacerbation which to leave act up today. WBC count has been worsening and vancomycin and meropenem added. Diurese as tolerated/needed. She has recurrent history of intubations and discussed with Pulmonary not an ideal candidate for continued BiPAP and with tachypnea which partly is centrally mediated due to her underlying stroke has been dependent on BiPAP pretty much on an ongoing level. Pulmonary has been consulted and his recommendations appreciated since not a candidate for ID due to her underlying stroke. Option of tracheostomy and mechanical ventilation was reviewed with the family by Pulmonary and has. Comfort care and hospice has been declined by family. 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 Insulin adjusted as ordered G-tube leakage GI has been consulted await his recommendations tube feed on hold Chronically L with multiple readmissions goals of care DVT prophylaxis Lovenox Code status do not resuscitate Subjective Date/time seen: 04/24/23 13:27 Interval history: 77-year-old female with history of CVA bed-bound status present with shortness of breath. She does report to be wheezy and received nebulizer treatment at the [facility]. WBC 14.7 hemoglobin 10.7 UA positive with 51-100 WBC suggestive of UTI. Has baseline right-sided deficits G-tube in-situ bedbound status chronic respiratory failure due to COPD on 2 L ox
--- NOTE | 2023-04-24 14:09 | PCNFU ---
Nutrition Follow-Up Complete: Swallowing dysfunction related to dysphagia as evidenced by the need for alternative nutrition support via PEG for sole source of nutrition. Goal:Meet estimated needs, tolerance of tube feedings. Pt current nutrition is NPO, tube feeding on hold. Nutrition recommendation: Resume tube feed as soon as medically appropriate Last recorded weight is 58.9 kg. Bowel Motility: +BM 1/2 Labs Reviewed: Hgb:9.3, HCT:32, Alb:2.8, BUN:36, Cr:0.3, Glu:216 Meds Noted: lovenox, zofran Skin: no skin issues noted Additional Notes: Pt was on tube feeding of Jevity 1.5 @ 55 ml/h: 1815 kcal, 77 g protein, 920 ml free water. Flush 150 ml q 6 hours. Total water 1520 ml/day. Tube feeding held due to tube malfunction. GI consult to review. Noted elevated glucose levels: 390, 216, 400. Recommend to switch to Glucerna 1.2 formula for improved glucose levels. Rec is glucerna 1.2 @ 65ml goal rate. Monitor tube feeding, rate, tolerance, wt, labs. Follow up every Sunday and Sunday.
--- NOTE | 2023-04-24 15:35 | WPDGICN ---
Assessment and Plan Assessment and plan (1) Dysphagia: Code(s): R13.10 - Dysphagia, unspecified Status: Acute Assessment and Plan: she has had a G-tube for some time. (2) Malfunction of gastrostomy tube: Code(s): K94.23 - Gastrostomy malfunction Status: Inactive Assessment and Plan: Staff has noticed leakage around the tube. (3) Anemia: Code(s): D64.9 - Anemia, unspecified Status: Inactive Assessment and Plan: Hemoglobin is 9.3. Looking back, this is her normal range. (4) Acute on chronic respiratory failure with hypoxia and hypercapnia: Code(s): J96.21 - Acute and chronic respiratory failure with hypoxia; J96.22 - Acute and chronic respiratory failure with hypercapnia Status: Acute Assessment and Plan: She is being followed by Pulmonary. Receiving oxygen per nasal cannula. (5) Pneumonia: Qualifiers: Laterality: bilateral Lung location: unspecified part of lung Pneumonia type: due to unspecified organism Qualified Code(s): J18.9 - Pneumonia, unspecified organism Code(s): J18.9 - Pneumonia, unspecified organism Status: Acute Assessment and Plan: Currently on meropenem Plan will replace gastrostomy tube. Because we are not certain about the inside of it we will perform EGD. If it is a mushroom type that we can pull it out through the skin and replace with either a new PEG tube which would be ideal given the leakage verses replacement G-tube With internal balloon.. We will determine that at the time of her procedure. GI Consult Note Consult date/time: 04/24/23 15:35 HPI: Gabriela Aguayo is a 77 year old female initially [facility] 5 [facility] She also had been found to have urine culture growing fungal organisms. Chest x-ray showed either atelectasis or pneumonia. She had been started on cefepime and vancomycin. Currently on meropenem. She is chronically on G-tube due to the fact that she has had a CVA in the past and is bed-bound. This G-tube has been noted to be leaking bile. Some of it is at the junction of the tube with the feeding adapter and some around the stoma itself. We do not know when or where this was originally placed. Because of COPD and history of having had previous intubations she has been on BiPAP. she is unable to provide any significant amount of history. Review of Systems Review of Systems: All systems reviewed & are unremarkable except as noted in HPI and below PMFSH Past Medical History Medical History Acute intracranial hemorrhage 03/25/23 - transferred to [facility] Anemia COPD (chronic obstructive pulmonary disease) Diastolic dysfunction Echocardiogram 01/2023: EF greater than 70%, grade 1 diastolic dysfunction, mild left atrial enlargement, mild tricuspid regurgitation, moderate pulmonary hypertension, pleural effusion seen DVT (deep venous thrombosis) Dysphagia GERD (gastroesophageal reflux disease) HTN (hypertension) Moderate pulmonary hypertension Seizures Surgical History Surgical History Gastrointestinal tube present Family History Family History Other Unknown family medical history Social History Social History Social History: Patient is currently residing at [facility]. Patient has a daughter and a son. Code status: No CPR Smoking status: Former smoker Alcohol intake: unknown Substance use: unknown Spiritual care concerns: No Meds Home Medications and Allergies Home Medications Medication Instructions Recorded Confirmed Type acetaminophen 500 mg tablet 500 mg feeding tube Q4H PRN Pain 04/04/23 04/18/23 History (Scale Score 1-3)
--- NOTE | 2023-04-24 17:46 | WPDCN ---
Assessment and Plan Assessment and plan (1) COPD with acute exacerbation: Code(s): J44.1 - Chronic obstructive pulmonary disease with (acute) exacerbation Status: Acute Assessment and Plan: plan or tracheostomy. Risks discussed with family per nursing. I will also reach out family to discuss performing a tracheostomy and patient was not intubated. Risks include bleeding infection need further procedures compromise of airway with stenosis. . Need for prolonged hospitalization. Need for transfer to facility that can take care of trach to patient's. Please make NPO and hold VT midnight before procedure. Every stuck to the family in was not able to contact them via phone numbers in the chart. (2) COPD (chronic obstructive pulmonary disease): Code(s): J44.9 - Chronic obstructive pulmonary disease, unspecified Status: Acute (3) Respiratory insufficiency: Code(s): R06.89 - Other abnormalities of breathing Status: Acute HPI Data of Consult Date/Time: 04/24/23 17:46 Requesting Physician: Wagner Vogel MD Primary Care Provider: Luisito Sher MD Consult Narrative Narrative: Gabriela Aguayo is a 77 year old female with some multiple respiratory infections. [facility] Past Medical History Medical History Acute intracranial hemorrhage 03/25/23 - transferred to [facility] Anemia COPD (chronic obstructive pulmonary disease) Diastolic dysfunction Echocardiogram 01/2023: EF greater than 70%, grade 1 diastolic dysfunction, mild left atrial enlargement, mild tricuspid regurgitation, moderate pulmonary hypertension, pleural effusion seen DVT (deep venous thrombosis) Dysphagia GERD (gastroesophageal reflux disease) HTN (hypertension) Moderate pulmonary hypertension Seizures Surgical History Surgical History Gastrointestinal tube present Family History Family History Other Unknown family medical history Social History Social History Social History: Patient is currently residing at [facility]. Patient has a daughter and a son. Code status: No CPR Smoking status: Former smoker Alcohol intake: unknown Substance use: unknown Spiritual care concerns: No Meds Home Medications and Allergies Home Medications Medication Instructions Recorded Confirmed Type acetaminophen 500 mg tablet 500 mg feeding tube Q4H PRN Pain 04/04/23 04/18/23 History (Scale Score 1-3) amlodipine 10 mg tablet 10 mg feeding tube DAILY 04/04/23 04/18/23 History bisacodyl 10 mg rectal suppository 10 mg RECTAL DAILY PRN Constipation 04/04/23 04/18/23 History budesonide-formoterol HFA 80 2 puff inhalation Q12H 04/04/23 04/18/23 History mcg-4.5 mcg/actuation aerosol inhaler carboxymethylcellulose sodium 1 % 2 drp EACH EYE Q8H PRN Dry Eyes 04/04/23 04/18/23 History eye liquid gel drops diclofenac sodium 1 % topical gel 1 ea topical QID 04/04/23 04/18/23 History docusate sodium 50 mg/5 mL oral 100 mg feeding tube BID 04/04/23 04/18/23 History liquid enoxaparin 40 mg/0.4 mL 40 mg subcut DAILY 04/04/23 04/18/23 History subcutaneous syringe kit famotidine 20 mg tablet 20 mg feeding tube BID 04/04/23 04/18/23 History insulin lispro 100 unit/mL 1 sliding scale dose subcut 04/04/23 04/18/23 History subcutaneous cartridge (Humalog USEASDIRECTD U-100 Insulin) ipratropium 0.5 mg-albuterol 3 mg 3 ml inhalation Q6H PRN Shortness 04/04/23 04/18/23 History (2.5 mg base)/3 mL nebulization Of Breath Or Wheezing soln levetiracetam 100 mg/mL oral 750 mg feeding tube Q12H 04/04/23 04/18/23 History solution (Keppra) magnesium citrate (Citroma oral 300 ml feeding tube DAILY PRN 04/04/23 04/18/23 History solution) Constipation magne
[2023-04-24 18:30] LABS: Glucose Point of Care 168 mg/dl (65-105)
[2023-04-24] MEDS: methylPREDNISolone SOD SUCC 40 MG VIAL 20 MG IV PUSH (20:10)
[2023-04-24] MEDS: BUDESONIDE RESPULE NEB 0.5 MG/2 ML AMP INHALATION (20:43)
[2023-04-24] MEDS: VANCOMYCIN 1,250 MG/NS 250 ML 1,250 MG/250 ML BAG 166.67 MG IVPB (21:17)
[2023-04-24 23:56] LABS: Glucose Point of Care 216 mg/dl (65-105)
[2023-04-25] VITALS (32 sets, daily range): BP systolic 100–129; BP diastolic 68–77; PULSE 74–118; RESP 18–33; TEMP 36.1–37.1; O2SAT 94–100
[2023-04-25] MEDS: INSULIN ASPART (*BKC) 100 UNITS/ML SUB-Q (00:10)
[2023-04-25] MEDS: IPRATROPIUM BR 0.02% INH SOLN 0.5 MG/2.5 ML VIAL INHALATION ×5 (04:41→22:32)
[2023-04-25] MEDS: LEVALBUTEROL NEB 1.25 MG/3 ML INHALATION ×5 (04:41→22:33)
[2023-04-25 05:29] LABS: Hematocrit 32.7 % (37.0-47.0); Hemoglobin 9.7 g/dL (12.0-15.0); Mean Corpuscular HGB Conc 29.7 g/dl (32-36); Mean Corpuscular Hemoglobin 27.8 pg (26-34); Mean Corpuscular Volume 93.7 fl (80-100); Mean Platelet Volume 10.1 fl (7.4-10.4); Platelet Count Result 307 k/mm3 (150-375); Red Blood Count 3.49 M/mm3 (4.2-5.4); Red Cell Distribution Width 18.6 % (11.5-14.5); White Blood Count 25.2 K/mm3 (4.5-10.0)
[2023-04-25 05:47] LABS: Alanine Aminotransferase 14 U/L (6-35); Alkaline Phosphatase 77 U/L (38-126); Aspartate Amino Transferase 24 U/L (14-36); Bilirubin,Total 0.8 mg/dL (0.2-1.3); Blood Urea Nitrogen 33 mg/dL (7-17); Calcium 9.4 mg/dL (8.4-10.2); Carbon Dioxide > 40 mmol/L (22-30); Chloride 105 mmol/L (98-107); Estimated CRCL calculation 88 ml/min; Estimated Glomerular Filt Rate > 60; Glucose 171 mg/dL (65-110); Magnesium 2.5 mg/dL (1.6-2.3); Sodium 146 mmol/L (137-145)
[2023-04-25 05:58] LABS: Band Neutrophils Percent 5 % (0-6); Lymphocytes Percent Manual 2 % (18-44); Monocytes Absolute Manual 0.75 K/mm3 (0.1-0.90); Monocytes Percent Manual 3 % (3-9); Neutrophils Absolute Manual 23.94 K/mm3 (1.7-7.2); Neutrophils Percent Manual 90 % (46-73); Total Cells Counted 100
[2023-04-25 05:59] LABS: Anisocytosis 1+ (NORMAL); Hypochromasia 1+ (NORMAL); Platelet Estimate Adequate (Adequate); Poikilocytosis 1+ (NORMAL); Schistocytes None Seen (NORMAL)
[2023-04-25 06:00] LABS: Target Cells 1+ (NORMAL)
[2023-04-25] MEDS: MEROPENEM 1 GM/NS 100 ML 1 GM/100 ML BAG IVPB ×2 (06:19→17:50)
[2023-04-25] MEDS: BUDESONIDE RESPULE NEB 0.5 MG/2 ML AMP INHALATION ×2 (07:39→22:32)
[2023-04-25] MEDS: METOPROLOL TARTRATE 50 MG TAB FEED TUBE ×2 (08:32→20:55)
[2023-04-25] MEDS: FAMOTIDINE 20 MG TABLET FEED TUBE ×2 (08:32→17:49)
[2023-04-25] MEDS: DOCUSATE SODIUM LIQ 100 MG/10 ML UDC FEED TUBE (08:33)
[2023-04-25] MEDS: DICLOFENAC SODIUM 1% 100 GM GEL (*BKC) 1 APPLIC TOPICAL ×4 (08:34→20:56)
--- NOTE | 2023-04-25 08:40 | PM.PNPUL ---
Progress Note: A&P Assessment and Plan (1) COPD (chronic obstructive pulmonary disease): Code(s): J44.9 - Chronic obstructive pulmonary disease, unspecified Status: Acute Assessment and Plan: Patient with severe upper lobe predominant panlobular emphysema on her CT scan. I have no PFTs. 04/24/23: I spoke with the hospitalist she has not had any recent wheezing and I am not convinced the patient has a active COPD exacerbation at this time. Plan: I will decrease the Solu-Medrol to 20 mg IV q.6 and if she is clinically stable will discontinue them on 04/25/2023. I will increase the frequency of her levalbuterol and ipratropium nebulizers to q.4 hours. I will add nebulized budesonide 500 mcg b.i.d. patient is been on a scopolamine patch from her living facility. This will decrease her secretions but is places the patient at risk for mucus plugging and I will discontinue today. The patient cannot expectorate phlegm at this point and I will give her a trial of vest therapy q.i.d.. I spoke with respiratory therapy. Patient may have aspiration pneumonia and agree with vancomycin and meropenem. 04/25/23: Patient tolerated 2 L nasal cannula throughout the day yesterday and last night wore the noninvasive ventilator with the AVAPS mode on 32%. White blood cell count 25.2, creatinine 0.4. Chest x-ray with small effusions, no change in her infiltrates. She tries to mouth good morning, she did attempt to cough today by taking a deep breath with minimal ground that was totally ineffective, she did not move her hands to verbal command she wiggled her toes to verbal commands. Currently she is on 2 L nasal cannula saturations 98%. No wheezes on exam. Plan: I will discontinue her Solu-Medrol today. I will continue albuterol, ipratropium nebulizers q.4 hours and continue nebulized budesonide 500 b.i.d.. Continue Vest q.i.d.. She is afebrile since 04/23 at 1:00 p.m. on vancomycin and meropenem, day 3 would continue. Patient to have PEG tube examined and/or replaced by GI later today. Will follow with you. (2) Acute on chronic respiratory failure with hypoxia and hypercapnia: Code(s): J96.21 - Acute and chronic respiratory failure with hypoxia; J96.22 - Acute and chronic respiratory failure with hypercapnia Status: Acute Assessment and Plan: Patient with a history of COVID in April of 2022 required a tracheostomy and was admitted to an [facility] in [facility]. The daughter tells me she was de cannulated about 30 days later. Patient has a history of multiple aspiration events requiring intubation 5 times (, 01/27/2023, 02/12/2023, 03/25/2023, 04/04/2023). She is maintained on noninvasive ventilator at her living facility. She has continued chronic hypercarbic respiratory failure with a blood gas on 04/21/2023 on 2 L of 7.43/59/69. Plan: Patient has multiple intubations for presumed aspiration events in the past and currently she has a poor mental status at baseline and is decondition with an inability to raise her hands to her face to remove the BiPAP mask. This is a relative to have contraindication to continued noninvasive ventilation as she is at risk for aspiration and asphyxia because she cannot remove the mask. I spoke with GRACE Alexander and discussed 3 options. First: continued BiPAP use with the realization that she is at risk for recurrent aspirations and or intubations. Second: proceed with semi elective tracheostomy with admission to an LTAC for hopeful prolonged rehabilitation so that she become stronger and can protect her airway and cough over time. Third: comfort measures. The POA wished for semi elective tracheostomy with admission to LTAC. She stated the patient was at an LTAC in [facility] after her tracheostomy from her COVID in April of 2022. I explained that I am unsure which LTAC she would qualify for at this time. 04/25/23: Patient continues to wear hospital noninvasi
[2023-04-25] MEDS: levETIRAcetam ORAL SOL 500 MG/5 ML UDC 750 MG FEED TUBE ×2 (11:12→23:37)
--- NOTE | 2023-04-25 11:56 | PM.IMPN ---
Progress Note: A&P Assessment and Plan (1) Urinary tract infection: Code(s): N39.0 - Urinary tract infection, site not specified Status: Acute (2) Pneumonia: Qualifiers: Laterality: left Lung location: lower lobe of lung Pneumonia type: due to unspecified organism Qualified Code(s): J18.9 - Pneumonia, unspecified organism Code(s): J18.9 - Pneumonia, unspecified organism Status: Acute (3) COPD with acute exacerbation: Code(s): J44.1 - Chronic obstructive pulmonary disease with (acute) exacerbation Status: Acute Plan COPD exacerbation and pneumonia 77-year-old female with history of CVA bed-bound status present with shortness of breath. She does report to be wheezy and [facility]. WBC 14.7 hemoglobin 10.7 bedbound status chronic respiratory failure due to COPD on 2 L oxygen nasal cannula continuous minimally verbal. Mild chronic anemia thrombocytosis chronic Tam. BNP 235 which is about baseline. Nasal MRSA swab negative influenza COVID RSV negative. Chest x-ray with worsening bilateral airspace disease may represent atelectasis aspiration or pneumonia possible small bilateral pleural effusion mild interstitial edema. On cefepime vancomycin for possible pneumonia pancultured. Uses BiPAP at night and detention. Stopped IV vancomycin. Possible COPD exacerbation started on IV steroid Acute on chronic respiratory failure requiring 2 L oxygen via nasal cannula continuous with acute on chronic on BiPAP p.r.n. requiring quite frequently BiPAP CTA done ruled out PE but showed airspace past is a right lower lobe and right middle lobe consistent with pneumonia will add metronidazole for anaerobic coverage of continue on now cefepime as ordered. Did improve while on cefepime was switched to meropenem. Steroid IV restart for COPD exacerbation which to leave act up today. WBC count has been worsening and vancomycin and meropenem added. Diurese as tolerated/needed. She has recurrent history of intubations and discussed with Pulmonary not an ideal candidate for continued BiPAP and with tachypnea which partly is centrally mediated due to her underlying stroke has been dependent on BiPAP pretty much on an ongoing level. Pulmonary has been consulted and his recommendations appreciated since not a candidate for ID due to her underlying stroke. Option of tracheostomy and mechanical ventilation was reviewed with the family by Pulmonary and has. Comfort care and hospice has been declined by family. Recurrent Pseudomonas in sputum cultures possible colonization discontinue her Solu-Medrol today. Flexo Press Operator recommends to continue albuterol, ipratropium nebulizers q.4 hours and continue nebulized budesonide 500 b.i.d..? Continue Vest q.i.d..? on vancomycin and meropenem, day 3 would continue.? Hypernatremia worsened started on free water flushes and added D5 water. Hypernatremia resolved. UA positive with 51-100 WBC suggestive of UTI. UTI treated with micafungin for fungal UTI detected recently. Repeat urine culture growing Bree tropicalis. Stop the IV fluids aBG adequate. Lactic acid was normal exchanged Tam. G-tube in situ to feed continue tube feeding with water flushes as ordered. 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 Insulin adjusted as ordered G-tube leakage GI has been consulted await his recommendations tube feed on hold Chronically L with multiple readmissions goals of care DVT prophylaxis Lovenox Code status do not resuscitate Subjective Date/time seen: 04/25/23 11:56 Interval history: Patient is afebrile, blood pressure stable, no new issue overnight, lying in bed, still has
[2023-04-25 12:55] LABS: Glucose Point of Care 200 mg/dl (65-105)
[2023-04-25] MEDS: LACTATED RINGERS 1,000 ML 150 ML IV CONT (14:32)
[2023-04-25 14:36] LABS: Glucose Point of Care 185 mg/dl (65-105)
--- NOTE | 2023-04-25 14:57 | WPDANESEPPF ---
Anes - Initial Pre Proc Eval Procedure: Operation Date: 04/25/23 15:00 Proposed Procedures p Percutaneous Endoscopic Gastrostomy - Shawn Nguyen MD Operation Date: 04/27/23 13:15 Proposed Procedures p Tracheostomy - Hawk Peñaloza MD Date/Time: 04/25/23 14:57 Surgeon: Wagner Vogel MD Pre Op Diagnosis: UTI, Dehydration Patient Data Age: 77 Gender: F Height: 1.68 m Weight: 62.9 kg Last Vital Signs Temp 97 F L 04/25/23 14:28 Pulse 90 04/25/23 14:28 Resp 18 04/25/23 14:28 BP 119/68 04/25/23 14:28 Pulse Ox 100 04/25/23 14:28 O2 Del Method Nasal Cannula 04/25/23 14:28 O2 Flow Rate 2 04/25/23 14:28 FiO2 30 04/25/23 12:00 Allergies Allergy/AdvReac Type Severity Reaction Status Date / Time No Known Allergies Allergy Verified 04/25/23 14:26 Home Medications Medication Instructions Recorded Confirmed Type acetaminophen 500 mg tablet 500 mg feeding tube Q4H PRN Pain 04/04/23 04/18/23 History (Scale Score 1-3) amlodipine 10 mg tablet 10 mg feeding tube DAILY 04/04/23 04/18/23 History bisacodyl 10 mg rectal suppository 10 mg RECTAL DAILY PRN Constipation 04/04/23 04/18/23 History budesonide-formoterol HFA 80 2 puff inhalation Q12H 04/04/23 04/18/23 History mcg-4.5 mcg/actuation aerosol inhaler carboxymethylcellulose sodium 1 % 2 drp EACH EYE Q8H PRN Dry Eyes 04/04/23 04/18/23 History eye liquid gel drops diclofenac sodium 1 % topical gel 1 ea topical QID 04/04/23 04/18/23 History docusate sodium 50 mg/5 mL oral 100 mg feeding tube BID 04/04/23 04/18/23 History liquid enoxaparin 40 mg/0.4 mL 40 mg subcut DAILY 04/04/23 04/18/23 History subcutaneous syringe kit famotidine 20 mg tablet 20 mg feeding tube BID 04/04/23 04/18/23 History insulin lispro 100 unit/mL 1 sliding scale dose subcut 04/04/23 04/18/23 History subcutaneous cartridge (Humalog USEASDIRECTD U-100 Insulin) ipratropium 0.5 mg-albuterol 3 mg 3 ml inhalation Q6H PRN Shortness 04/04/23 04/18/23 History (2.5 mg base)/3 mL nebulization Of Breath Or Wheezing soln levetiracetam 100 mg/mL oral 750 mg feeding tube Q12H 04/04/23 04/18/23 History solution (Keppra) magnesium citrate (Citroma oral 300 ml feeding tube DAILY PRN 04/04/23 04/18/23 History solution) Constipation magnesium hydroxide 400 mg/5 mL 30 ml feeding tube HS PRN 04/04/23 04/18/23 History oral suspension (Milk of Magnesia) Constipation metoprolol tartrate 25 mg tablet 25 mg feeding tube BID 04/04/23 04/18/23 History mirtazapine 7.5 mg tablet 7.5 mg feeding tube HS 04/04/23 04/18/23 History scopolamine base 1 mg over 3 days 1 patch transdermal Q3D 04/04/23 04/18/23 History transdermal patch sodium phosphates 19 gram-7 197 ml RECTAL DAILY PRN 04/04/23 04/18/23 History gram/118 mL enema (Fleet Enema) Constipation levofloxacin 750 mg tablet 750 mg feeding tube DAILY 6 days 04/12/23 04/18/23 Rx #6 tabs Laboratory Tests 04/24/23 04/24/23 04/25/23 17:58 23:37 05:21 WBC 25.2 H K/mm3 (4.5-10.0) RBC 3.49 L M/mm3 (4.2-5.4) Hgb 9.7 L g/dL (12.0-15.0) Hct 32.7 L % (37.0-47.0) MCV 93.7 fl (80-100) MCH 27.8 pg (26-34) MCHC 29.7 L g/dl (32-36) RDW 18.6 H % (11.5-14.5) Plt Count 307 k/mm3 (150-375) MPV 10.1 fl (7.4-10.4) Immature Gran % (Auto) Not Reportable Neut % (Auto) Not Reportable Lymph % (Auto) Not Reportable Frio % (Auto) Not Reportable Eos % (Auto) Not Reportable Baso % (Auto) Not Reportable Lymph # (Auto) Not Reportable Frio # (Auto) Not Reportable Eos # (Auto) Not Reportable Baso # (Auto) Not Reportable Abs Immat Gran (auto) Not Reportable Absolute Neuts (auto) Not Reportable Absolute Nucleated RBC Not Reportable Total Counted 10
[2023-04-25 16:47] LABS: Glucose Point of Care 189 mg/dl (65-105)
[2023-04-25 18:16] LABS: Glucose Point of Care 172 mg/dl (65-105)
--- NOTE | 2023-04-25 18:27 | PC.NURSE ---
Updated daughter on patients condition and PEG tube procedure
[2023-04-25] MEDS: INSULIN ASPART (*BKC) 100 UNITS/ML 6 UNITS SUB-Q (18:59)
[2023-04-26] VITALS (28 sets, daily range): BP systolic 97–128; BP diastolic 63–73; PULSE 68–98; RESP 16–28; TEMP 36.1–36.8; O2SAT 94–100
[2023-04-26 00:21] LABS: Glucose Point of Care 77 mg/dl (65-105)
[2023-04-26] MEDS: MEROPENEM 1 GM/NS 100 ML 1 GM/100 ML BAG IVPB ×3 (00:26→16:45)
[2023-04-26] MEDS: LEVALBUTEROL NEB 1.25 MG/3 ML INHALATION ×4 (03:09→21:25)
[2023-04-26] MEDS: IPRATROPIUM BR 0.02% INH SOLN 0.5 MG/2.5 ML VIAL INHALATION ×4 (03:09→21:23)
[2023-04-26 05:59] LABS: Glucose Point of Care 102 mg/dl (65-105)
[2023-04-26] MEDS: BUDESONIDE RESPULE NEB 0.5 MG/2 ML AMP INHALATION ×2 (08:12→21:23)
[2023-04-26] MEDS: ENOXAPARIN 40 MG/0.4 ML SYRINGE SUB-Q (09:30)
[2023-04-26] MEDS: amLODIPine BESYLATE 5 MG TABLET 10 MG FEED TUBE (09:30)
[2023-04-26] MEDS: METOPROLOL TARTRATE 50 MG TAB FEED TUBE ×2 (09:30→21:37)
[2023-04-26] MEDS: FAMOTIDINE 20 MG TABLET FEED TUBE ×2 (09:31→16:45)
[2023-04-26] MEDS: DICLOFENAC SODIUM 1% 100 GM GEL (*BKC) 1 APPLIC TOPICAL ×4 (09:31→21:38)
--- NOTE | 2023-04-26 09:44 | PM.IMPN ---
Progress Note: A&P Assessment and Plan (1) Urinary tract infection: Code(s): N39.0 - Urinary tract infection, site not specified Status: Acute (2) Pneumonia: Qualifiers: Laterality: left Lung location: lower lobe of lung Pneumonia type: due to unspecified organism Qualified Code(s): J18.9 - Pneumonia, unspecified organism Code(s): J18.9 - Pneumonia, unspecified organism Status: Acute (3) COPD with acute exacerbation: Code(s): J44.1 - Chronic obstructive pulmonary disease with (acute) exacerbation Status: Acute Plan COPD exacerbation and pneumonia 77-year-old female with history of CVA bed-bound status present with shortness of breath. She does report to be wheezy and [facility] WBC 14.7 hemoglobin 10.7 bedbound status chronic respiratory failure due to COPD on 2 L oxygen nasal cannula continuous minimally verbal. Mild chronic anemia thrombocytosis chronic Tam. BNP 235 which is about baseline. Nasal MRSA swab negative influenza COVID RSV negative. Chest x-ray with worsening bilateral airspace disease may represent atelectasis aspiration or pneumonia possible small bilateral pleural effusion mild interstitial edema. On cefepime vancomycin for possible pneumonia pancultured. Uses BiPAP at night and jail. Stopped IV vancomycin. Possible COPD exacerbation started on IV steroid Acute on chronic respiratory failure requiring 2 L oxygen via nasal cannula continuous with acute on chronic on BiPAP p.r.n. requiring quite frequently BiPAP CTA done ruled out PE but showed airspace past is a right lower lobe and right middle lobe consistent with pneumonia will add metronidazole for anaerobic coverage of continue on now cefepime as ordered. Did improve while on cefepime was switched to meropenem. Steroid IV restart for COPD exacerbation which to leave act up today. WBC count has been worsening and vancomycin and meropenem added. Diurese as tolerated/needed. She has recurrent history of intubations and discussed with Pulmonary not an ideal candidate for continued BiPAP and with tachypnea which partly is centrally mediated due to her underlying stroke has been dependent on BiPAP pretty much on an ongoing level. Pulmonary has been consulted and his recommendations appreciated since not a candidate for ID due to her underlying stroke. Option of tracheostomy and mechanical ventilation was reviewed with the family by Pulmonary and has. Comfort care and hospice has been declined by family. Recurrent Pseudomonas in sputum cultures possible colonization discontinue her Solu-Medrol Direct Support Worker recommends to continue albuterol, ipratropium nebulizers q.4 hours and continue nebulized budesonide 500 b.i.d..? Continue Vest q.i.d..? on vancomycin and meropenem, Plans tracheostomy per manager employment recommendation Hypernatremia worsened started on free water flushes and added D5 water. Hypernatremia resolved. UA positive with 51-100 WBC suggestive of UTI. UTI treated with micafungin for fungal UTI detected recently. Repeat urine culture growing Bree tropicalis. Stop the IV fluids aBG adequate. Lactic acid was normal exchanged Tam. G-tube in situ to feed continue tube feeding with water flushes as ordered. 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 Insulin adjusted as ordered G-tube leakage GI has been consulted await his recommendations tube feed on hold Chronically L with multiple readmissions goals of care DVT prophylaxis Lovenox Code status do not resuscitate Subjective Date/time seen: 04/26/23 09:44 Interval history: Patient is afebrile, blood pressure stable, no new issue overnight, l
--- NOTE | 2023-04-26 09:59 | PM.IMHP ---
H&P: HPI History of Present Illness Date/Time: 04/26/23 09:59 Chief Complaint: Respiratory failure Narrative: planned procedure COUNTS INCLUDE 234 BEDS AT THE [facility] Past Medical History Medical History (Updated 04/29/23 @ 16:11 by Zenaida Landis MD) Acute intracranial hemorrhage 03/25/23 - transferred to [facility] Anemia Chronic respiratory failure with hypoxia and hypercapnia COPD (chronic obstructive pulmonary disease) Diastolic dysfunction Echocardiogram 01/2023: EF greater than 70%, grade 1 diastolic dysfunction, mild left atrial enlargement, mild tricuspid regurgitation, moderate pulmonary hypertension, pleural effusion seen DVT (deep venous thrombosis) Dysphagia GERD (gastroesophageal reflux disease) HTN (hypertension) Moderate pulmonary hypertension Seizures Tracheostomy dependence Surgical History Surgical History Gastrointestinal tube present Family History Family History Other Unknown family medical history Social History Social History Social History: Patient is currently residing at [facility]. Patient has a daughter and a son. Code status: No CPR Smoking status: Former smoker Alcohol intake: unknown Substance use: unknown Spiritual care concerns: No Meds Home Medications and Allergies Home Medications Medication Instructions Recorded Confirmed Type acetaminophen 500 mg tablet 500 mg feeding tube Q4H PRN Pain 04/04/23 04/18/23 History (Scale Score 1-3) amlodipine 10 mg tablet 10 mg feeding tube DAILY 04/04/23 04/18/23 History bisacodyl 10 mg rectal suppository 10 mg RECTAL DAILY PRN Constipation 04/04/23 04/18/23 History budesonide-formoterol HFA 80 2 puff inhalation Q12H 04/04/23 04/18/23 History mcg-4.5 mcg/actuation aerosol inhaler carboxymethylcellulose sodium 1 % 2 drp EACH EYE Q8H PRN Dry Eyes 04/04/23 04/18/23 History eye liquid gel drops diclofenac sodium 1 % topical gel 1 ea topical QID 04/04/23 04/18/23 History docusate sodium 50 mg/5 mL oral 100 mg feeding tube BID 04/04/23 04/18/23 History liquid enoxaparin 40 mg/0.4 mL 40 mg subcut DAILY 04/04/23 04/18/23 History subcutaneous syringe kit famotidine 20 mg tablet 20 mg feeding tube BID 04/04/23 04/18/23 History insulin lispro 100 unit/mL 1 sliding scale dose subcut 04/04/23 04/18/23 History subcutaneous cartridge (Humalog USEASDIRECTD U-100 Insulin) ipratropium 0.5 mg-albuterol 3 mg 3 ml inhalation Q6H PRN Shortness 04/04/23 04/18/23 History (2.5 mg base)/3 mL nebulization Of Breath Or Wheezing soln levetiracetam 100 mg/mL oral 750 mg feeding tube Q12H 04/04/23 04/18/23 History solution (Keppra) magnesium citrate (Citroma oral 300 ml feeding tube DAILY PRN 04/04/23 04/18/23 History solution) Constipation magnesium hydroxide 400 mg/5 mL 30 ml feeding tube HS PRN 04/04/23 04/18/23 History oral suspension (Milk of Magnesia) Constipation metoprolol tartrate 25 mg tablet 25 mg feeding tube BID 04/04/23 04/18/23 History mirtazapine 7.5 mg tablet 7.5 mg feeding tube HS 04/04/23 04/18/23 History scopolamine base 1 mg over 3 days 1 patch transdermal Q3D 04/04/23 04/18/23 History transdermal patch sodium phosphates 19 gram-7 197 ml RECTAL DAILY PRN 04/04/23 04/18/23 History gram/118 mL enema (Fleet Enema) Constipation levofloxacin 750 mg tablet 750 mg feeding tube DAILY 6 days 04/12/23 04/18/23 Rx #6 tabs Allergies Allergy/AdvReac Type Severity Reaction Status Date / Time No Known Allergies Allergy Verified 04/25/23 14:26 Vital Signs Vital Signs - 24 hr 04/25/23 11:05 04/25/23 11:39 04/25/23 11:52 Temperature 36.3 C L Pulse Rate 97 98 90 Respiratory Rate 20 20 20 Blood Pressure 129/69 Pulse Oximetry 98 Oxygen Delivery Oxygen Flow Rate Fraction of Inspired Oxygen 04/25/23 10:
--- NOTE | 2023-04-26 09:59 | PM.PNPUL ---
Progress Note: A&P Assessment and Plan (1) COPD (chronic obstructive pulmonary disease): Code(s): J44.9 - Chronic obstructive pulmonary disease, unspecified Status: Acute Assessment and Plan: Patient with severe upper lobe predominant panlobular emphysema on her CT scan. I have no PFTs. 04/24/23: I spoke with the hospitalist she has not had any recent wheezing and I am not convinced the patient has a active COPD exacerbation at this time. Plan: I will decrease the Solu-Medrol to 20 mg IV q.6 and if she is clinically stable will discontinue them on 04/25/2023. I will increase the frequency of her levalbuterol and ipratropium nebulizers to q.4 hours. I will add nebulized budesonide 500 mcg b.i.d. patient is been on a scopolamine patch from her living facility. This will decrease her secretions but is places the patient at risk for mucus plugging and I will discontinue today. The patient cannot expectorate phlegm at this point and I will give her a trial of vest therapy q.i.d.. I spoke with respiratory therapy. Patient may have aspiration pneumonia and agree with vancomycin and meropenem. 04/25/23: Patient tolerated 2 L nasal cannula throughout the day yesterday and last night wore the noninvasive ventilator with the AVAPS mode on 32%. White blood cell count 25.2, creatinine 0.4. Chest x-ray with small effusions, no change in her infiltrates. She tries to mouth good morning, she did attempt to cough today by taking a deep breath with minimal ground that was totally ineffective, she did not move her hands to verbal command she wiggled her toes to verbal commands. Currently she is on 2 L nasal cannula saturations 98%. No wheezes on exam. Plan: I will discontinue her Solu-Medrol today. I will continue albuterol, ipratropium nebulizers q.4 hours and continue nebulized budesonide 500 b.i.d.. Continue Vest q.i.d.. She is afebrile since 04/23 at 1:00 p.m. on vancomycin and meropenem, day 3 would continue. Patient to have PEG tube examined and/or replaced by GI later today. 1/4/24: Patient was off the noninvasive ventilator yesterday during the day and wore the hospital noninvasive ventilator overnight. Currently she is on the noninvasive ventilator with 32% FiO2 and saturations 100%. She does wake up, she raises her hands off the bed at the elbows, she wiggles her toes. Plan: Stable off Solu-Medrol for 1 day. Continue albuterol, ipratropium and budesonide nebulizers. Continue Vest q.i.d.. She is not producing much sputum with the vest treatment. Continue meropenem day 4. Will follow with you. (2) Acute on chronic respiratory failure with hypoxia and hypercapnia: Code(s): J96.21 - Acute and chronic respiratory failure with hypoxia; J96.22 - Acute and chronic respiratory failure with hypercapnia Status: Acute Assessment and Plan: Patient with a history of COVID in April of 2022 required a tracheostomy and was admitted to an LTAC, [place] in [facility]. The daughter tells me she was de cannulated about 30 days later. Patient has a history of multiple aspiration events requiring intubation 5 times (, 01/27/2023, 02/12/2023, 03/25/2023, 04/04/2023). She is maintained on noninvasive ventilator at her living facility. She has continued chronic hypercarbic respiratory failure with a blood gas on 04/21/2023 on 2 L of 7.43/59/69. Plan: Patient has multiple intubations for presumed aspiration events in the past and currently she has a poor mental status at baseline and is decondition with an inability to raise her hands to her face to remove the BiPAP mask. This is a relative to have contraindication to continued noninvasive ventilation as she is at risk for aspiration and asphyxia because she cannot remove the mask. I spoke with GRACE Alexander and discussed 3 options. First: continued BiPAP use with the realization that she is at risk for recurrent aspirations and or intubations. Second: proceed
--- NOTE | 2023-04-26 09:59 | PM.IMHP ---
H&P: HPI History of Present Illness Date/Time: 04/26/23 09:59 Chief Complaint: Essentially recurrent respiratory infections and aspiration events Narrative: planned elective tracheostomy Review of Systems Review of Systems: All systems reviewed & are unremarkable except as noted in HPI and below [facility] Past Medical History Medical History Acute intracranial hemorrhage 03/25/23 - transferred to [facility] Anemia COPD (chronic obstructive pulmonary disease) Diastolic dysfunction Echocardiogram 01/2023: EF greater than 70%, grade 1 diastolic dysfunction, mild left atrial enlargement, mild tricuspid regurgitation, moderate pulmonary hypertension, pleural effusion seen DVT (deep venous thrombosis) Dysphagia GERD (gastroesophageal reflux disease) HTN (hypertension) Moderate pulmonary hypertension Seizures Surgical History Surgical History Gastrointestinal tube present Family History Family History Other Unknown family medical history Social History Social History Social History: Patient is currently residing at [facility]. Patient has a daughter and a son. Code status: No CPR Smoking status: Former smoker Alcohol intake: unknown Substance use: unknown Spiritual care concerns: No Meds Home Medications and Allergies Home Medications Medication Instructions Recorded Confirmed Type acetaminophen 500 mg tablet 500 mg feeding tube Q4H PRN Pain 04/04/23 04/18/23 History (Scale Score 1-3) amlodipine 10 mg tablet 10 mg feeding tube DAILY 04/04/23 04/18/23 History bisacodyl 10 mg rectal suppository 10 mg RECTAL DAILY PRN Constipation 04/04/23 04/18/23 History budesonide-formoterol HFA 80 2 puff inhalation Q12H 04/04/23 04/18/23 History mcg-4.5 mcg/actuation aerosol inhaler carboxymethylcellulose sodium 1 % 2 drp EACH EYE Q8H PRN Dry Eyes 04/04/23 04/18/23 History eye liquid gel drops diclofenac sodium 1 % topical gel 1 ea topical QID 04/04/23 04/18/23 History docusate sodium 50 mg/5 mL oral 100 mg feeding tube BID 04/04/23 04/18/23 History liquid enoxaparin 40 mg/0.4 mL 40 mg subcut DAILY 04/04/23 04/18/23 History subcutaneous syringe kit famotidine 20 mg tablet 20 mg feeding tube BID 04/04/23 04/18/23 History insulin lispro 100 unit/mL 1 sliding scale dose subcut 04/04/23 04/18/23 History subcutaneous cartridge (Humalog USEASDIRECTD U-100 Insulin) ipratropium 0.5 mg-albuterol 3 mg 3 ml inhalation Q6H PRN Shortness 04/04/23 04/18/23 History (2.5 mg base)/3 mL nebulization Of Breath Or Wheezing soln levetiracetam 100 mg/mL oral 750 mg feeding tube Q12H 04/04/23 04/18/23 History solution (Keppra) magnesium citrate (Citroma oral 300 ml feeding tube DAILY PRN 04/04/23 04/18/23 History solution) Constipation magnesium hydroxide 400 mg/5 mL 30 ml feeding tube HS PRN 04/04/23 04/18/23 History oral suspension (Milk of Magnesia) Constipation metoprolol tartrate 25 mg tablet 25 mg feeding tube BID 04/04/23 04/18/23 History mirtazapine 7.5 mg tablet 7.5 mg feeding tube HS 04/04/23 04/18/23 History scopolamine base 1 mg over 3 days 1 patch transdermal Q3D 04/04/23 04/18/23 History transdermal patch sodium phosphates 19 gram-7 197 ml RECTAL DAILY PRN 04/04/23 04/18/23 History gram/118 mL enema (Fleet Enema) Constipation levofloxacin 750 mg tablet 750 mg feeding tube DAILY 6 days 04/12/23 04/18/23 Rx #6 tabs Allergies Allergy/AdvReac Type Severity Reaction Status Date / Time No Known Allergies Allergy Verified 04/25/23 14:26 Vital Signs Vital Signs - 24 hr 04/25/23 11:05 04/25/23 11:39 04/25/23 11:52 Temperature 36.3 C L Pulse Rate 97 98 90 Respiratory Rate 20 20 20 Blood Pressure 129/69 Pulse Oximetry
--- NOTE | 2023-04-26 11:05 | WPDANESPN ---
Anes - Prog Note Post-Op Date/Time: 04/26/23 11:05 Cardiovascular status: normal Respiratory status: normal Airway patency: baseline Mental status: baseline Post-Op hydration status: normal Vital Signs: Last Vital Signs Temp 36.1 C L 04/26/23 07:39 Pulse 82 04/26/23 09:30 Resp 18 04/26/23 08:26 BP 125/71 04/26/23 07:39 Pulse Ox 99 04/26/23 08:16 O2 Del Method BiPAP 04/26/23 08:16 O2 Flow Rate 2 04/25/23 22:36 FiO2 32 04/26/23 08:16 Pain Score (VAS): Patient asleep, no nonverbal signs of pain present at this time. I/O: Intake & Output 04/25/23 04/26/23 04/26/23 23:59 07:59 15:59 Intake Total 300 100 Output Total 775 Balance -475 100 Laboratory Tests 04/25/23 05:21 04/25/23 05:21 04/25/23 04/25/23 04/25/23 11:48 14:32 16:44 POC Capillary Glucose 200 H 185 H 189 H 04/25/23 04/26/23 04/26/23 17:23 00:17 05:54 POC Capillary Glucose 172 H 77 102 Microbiology 04/23/23 18:18 Nasopharynx MRSA Culture - Final 04/24/23 09:27 Blood Blood Culture - Preliminary 04/24/23 09:35 Blood Blood Culture - Preliminary Post-procedural complaints: none Patient Feedback: Patient satisfied with anesthetic care.
[2023-04-26] MEDS: levETIRAcetam ORAL SOL 500 MG/5 ML UDC 750 MG FEED TUBE (11:35)
[2023-04-26 11:59] LABS: Glucose Point of Care 112 mg/dl (65-105)
[2023-04-26] MEDS: SALINE LOCK FLUSH 10 ML IV PUSH ×2 (15:30→21:38)
[2023-04-26 17:34] LABS: Basophils Percent Auto 0.1 % (0.2-1.2); Hematocrit 30.2 % (37.0-47.0); Hemoglobin 8.6 g/dL (12.0-15.0); Immature Granulocyte Absolute 0.05 K/mm3 (0.00-0.031); Immature Granulocyte Percent A 0.6 % (0-0.5); Lymphocytes Absolute Auto 0.71 K/mm3 (0.9-3.2); Lymphocytes Percent Auto 8.7 % (18.3-44.2); Mean Corpuscular HGB Conc 28.5 g/dl (32-36); Mean Corpuscular Hemoglobin 27.8 pg (26-34); Mean Corpuscular Volume 97.7 fl (80-100); Mean Platelet Volume 9.8 fl (7.4-10.4); Monocytes Absolute Auto 0.6 K/mm3 (0.1-0.6); Monocytes Percent Auto 7.2 % (2.6-8.5); Neutrophils Absolute Auto 6.8 K/mm3 (1.3-6.7); Neutrophils Percent Auto 83.4 % (45.5-73.1); Nucleated Red Blood Cells Perc 0.4 % (0.0-0.2); Platelet Count Result 279 k/mm3 (150-375); Red Blood Count 3.09 M/mm3 (4.2-5.4); Red Cell Distribution Width 18.6 % (11.5-14.5); White Blood Count 8.2 K/mm3 (4.5-10.0)
[2023-04-26 17:51] LABS: Anisocytosis 1+ (NORMAL); Hypochromasia 1+ (NORMAL); Platelet Estimate Adequate (Adequate); Schistocytes None Seen (NORMAL); Target Cells 1+ (NORMAL)
[2023-04-26 18:05] LABS: Anion Gap 1 mmol/L (8-16); Blood Urea Nitrogen 20 mg/dL (7-17); Calcium 8.5 mg/dL (8.4-10.2); Carbon Dioxide 39 mmol/L (22-30); Chloride 102 mmol/L (98-107); Estimated CRCL calculation 88 ml/min; Estimated Glomerular Filt Rate > 60; Glucose 113 mg/dL (65-110); Potassium 3.5 mmol/L (3.4-5.0); Sodium 142 mmol/L (137-145)
[2023-04-26 18:44] LABS: Glucose Point of Care 112 mg/dl (65-105)
[2023-04-26] MEDS: ACETAMINOPHEN 500 MG TABLET FEED TUBE (21:44)
[2023-04-27] VITALS (30 sets, daily range): BP systolic 91–117; BP diastolic 61–75; PULSE 65–107; RESP 16–30; TEMP 36.2–37; O2SAT 90–100
[2023-04-27] MEDS: levETIRAcetam ORAL SOL 500 MG/5 ML UDC 750 MG FEED TUBE ×3 (00:02→22:20)
[2023-04-27] MEDS: MEROPENEM 1 GM/NS 100 ML 1 GM/100 ML BAG IVPB ×3 (00:02→20:31)
[2023-04-27] MEDS: LEVALBUTEROL NEB 1.25 MG/3 ML INHALATION ×5 (00:04→20:34)
[2023-04-27] MEDS: IPRATROPIUM BR 0.02% INH SOLN 0.5 MG/2.5 ML VIAL INHALATION ×5 (00:06→20:34)
[2023-04-27 00:22] LABS: Glucose Point of Care 94 mg/dl (65-105)
[2023-04-27] MEDS: ACETAMINOPHEN 500 MG TABLET FEED TUBE (02:31)
[2023-04-27 05:45] LABS: Glucose Point of Care 85 mg/dl (65-105)
[2023-04-27] MEDS: SALINE LOCK FLUSH 10 ML IV PUSH ×3 (05:57→22:17)
--- NOTE | 2023-04-27 07:19 | WPDHPUPDATE1 ---
History and Physical Update Update Date/Time: 04/27/23 07:19 History and Physical has been reviewed, including an updated exam of the patient. There are NO changes in the patient's condition. Risks, benefits, and alternatives have been discussed and questions answered. Patient agrees to proceed with procedure.
[2023-04-27 07:38] LABS: Glucose Point of Care 78 mg/dl (65-105)
[2023-04-27] MEDS: amLODIPine BESYLATE 5 MG TABLET 10 MG FEED TUBE (09:18)
[2023-04-27] MEDS: DICLOFENAC SODIUM 1% 100 GM GEL (*BKC) 1 APPLIC TOPICAL ×3 (09:18→22:17)
[2023-04-27] MEDS: METOPROLOL TARTRATE 50 MG TAB FEED TUBE (09:19)
[2023-04-27] MEDS: FAMOTIDINE 20 MG TABLET FEED TUBE ×2 (09:19→18:42)
--- NOTE | 2023-04-27 09:53 | PM.IMPN ---
Progress Note: A&P Assessment and Plan (1) Urinary tract infection: Code(s): N39.0 - Urinary tract infection, site not specified Status: Acute (2) Pneumonia: Qualifiers: Laterality: left Lung location: lower lobe of lung Pneumonia type: due to unspecified organism Qualified Code(s): J18.9 - Pneumonia, unspecified organism Code(s): J18.9 - Pneumonia, unspecified organism Status: Acute (3) COPD with acute exacerbation: Code(s): J44.1 - Chronic obstructive pulmonary disease with (acute) exacerbation Status: Acute Plan COPD exacerbation and pneumonia 77-year-old female with history of CVA bed-bound status present with shortness of breath. She does report to be wheezy and received [facility]izer [facility] the [facility]. WBC 14.7 hemoglobin 10.7 bedbound status chronic respiratory failure due to COPD on 2 L oxygen nasal cannula continuous minimally verbal. Mild chronic anemia thrombocytosis chronic Tam. BNP 235 which is about baseline. Nasal MRSA swab negative influenza COVID RSV negative. Chest x-ray with worsening bilateral airspace disease may represent atelectasis aspiration or pneumonia possible small bilateral pleural effusion mild interstitial edema. On cefepime vancomycin for possible pneumonia pancultured. Uses BiPAP at night and [facility]. Stopped IV vancomycin. Possible COPD exacerbation, received IV steroid Patient is off IV steroid now, continue budesonide inhalation q.8 hours, DuoNeb scheduled, levalbuterol p.r.n. continue meropenem IV, last dose will be Apr 29 Acute on chronic respiratory failure requiring 2 L oxygen via nasal cannula continuous with acute on chronic on BiPAP p.r.n. requiring quite frequently BiPAP CTA done ruled out PE but showed airspace past is a right lower lobe and right middle lobe consistent with pneumonia will add metronidazole for anaerobic coverage of continue on now cefepime as ordered. Did improve while on cefepime was switched to meropenem. Steroid IV restart for COPD exacerbation which to leave act up today. WBC count has been worsening and vancomycin and meropenem added. Diurese as tolerated/needed. She has recurrent history of intubations and discussed with Pulmonary not an ideal candidate for continued BiPAP and with tachypnea which partly is centrally mediated due to her underlying stroke has been dependent on BiPAP pretty much on an ongoing level. Pulmonary has been consulted and his recommendations appreciated since not a candidate for ID due to her underlying stroke. Option of tracheostomy and mechanical ventilation was reviewed with the family by Pulmonary and has. Comfort care and hospice has been declined by family. Recurrent Pseudomonas in sputum cultures possible colonization discontinue her Solu-Medrol Worm Packer recommends to continue albuterol, ipratropium nebulizers q.4 hours and continue nebulized budesonide 500 b.i.d..? Continue Vest q.i.d..? on vancomycin and meropenem, Plans tracheostomy per torts law professor recommendation Hypernatremia worsened started on free water flushes and added D5 water. Hypernatremia resolved. UA positive with 51-100 WBC suggestive of UTI. UTI treated with micafungin for fungal UTI detected recently. Repeat urine culture growing Bree tropicalis. Stop the IV fluids aBG adequate. Lactic acid was normal exchanged Tam. G-tube in situ to feed continue tube feeding with water flushes as ordered. Patient to have PEG tube examined and replaced by GI GERD Pulmonary hypertension Chronic anemia History of DVT IVC filter [facility] History of stroke with right-sided deficit vice president regulatory Hyperglycemia likely related to steroid and now D5 water. Insulin adjusted as ordered Chronically L with multiple readmissions goals of care DVT prophylaxis Lovenox Code status do not resuscitate Subjective Date/time seen: 04/27/23 09:53 Interval h
--- NOTE | 2023-04-27 10:28 | PCNFU ---
Nutrition Follow-Up Complete: Swallowing dysfunction related to dysphagia as evidenced by the need for alternative nutrition support via PEG for sole source of nutrition. Goal: Meet estimated needs, tolerance of tube feedings. - Not progressing, tube feeds on hold today Pt current nutrition is NPO for placement of trach. Nutrition recommendation: resume tube feeding when medically able:Jevity 1,5 @ goal rate 55 ml/h with flushed 150 ml q 6 hours. 1815 kcal, 77 g protein, 920 ml free water, total 1580 ml water with flushes. Last recorded weight is 59.7 kg. Bowel Motility: +1 BM 04/27/23 Labs Reviewed: 04/26: Hgb 8.6, Hct 30.2, BUN 20, Cre 0.4, Glu 112 Meds Noted: Lovenox, zofran Skin: No skin breakdown Additional Notes: NPO for trach placement today. Status post PEG tube. tube feedings were tolerated at goal rate. Advance back to tube feeds when able. Monitor tube feeding, rate, tolerance, wt, labs. Follow up every Sunday and Sunday.
--- NOTE | 2023-04-27 10:32 | PCRCNOTE ---
Window of time for administration has passed. See next scheduled administration.
[2023-04-27] MEDS: BUDESONIDE RESPULE NEB 0.5 MG/2 ML AMP INHALATION ×2 (10:33→20:34)
[2023-04-27] MEDS: DEXTROSE 50% 25 GM/50 ML SYRINGE IV PUSH (11:41)
[2023-04-27 11:42] LABS: Glucose Point of Care 68 mg/dl (65-105)
--- NOTE | 2023-04-27 12:59 | PM.PNPUL ---
Progress Note: A&P Assessment and Plan (1) COPD (chronic obstructive pulmonary disease): Code(s): J44.9 - Chronic obstructive pulmonary disease, unspecified Status: Acute Assessment and Plan: Patient with severe upper lobe predominant panlobular emphysema on her CT scan. I have no PFTs. 04/24/23: I spoke with the hospitalist she has not had any recent wheezing and I am not convinced the patient has a active COPD exacerbation at this time. Plan: I will decrease the Solu-Medrol to 20 mg IV q.6 and if she is clinically stable will discontinue them on 04/25/2023. I will increase the frequency of her levalbuterol and ipratropium nebulizers to q.4 hours. I will add nebulized budesonide 500 mcg b.i.d. patient is been on a scopolamine patch from her living facility. This will decrease her secretions but is places the patient at risk for mucus plugging and I will discontinue today. The patient cannot expectorate phlegm at this point and I will give her a trial of vest therapy q.i.d.. I spoke with respiratory therapy. Patient may have aspiration pneumonia and agree with vancomycin and meropenem. 04/25/23: Patient tolerated 2 L nasal cannula throughout the day yesterday and last night wore the noninvasive ventilator with the AVAPS mode on 32%. White blood cell count 25.2, creatinine 0.4. Chest x-ray with small effusions, no change in her infiltrates. She tries to mouth good morning, she did attempt to cough today by taking a deep breath with minimal ground that was totally ineffective, she did not move her hands to verbal command she wiggled her toes to verbal commands. Currently she is on 2 L nasal cannula saturations 98%. No wheezes on exam. Plan: I will discontinue her Solu-Medrol today. I will continue albuterol, ipratropium nebulizers q.4 hours and continue nebulized budesonide 500 b.i.d.. Continue Vest q.i.d.. She is afebrile since 04/23 at 1:00 p.m. on vancomycin and meropenem, day 3 would continue. Patient to have PEG tube examined and/or replaced by GI later today. 1/4/24: Patient was off the noninvasive ventilator yesterday during the day and wore the hospital noninvasive ventilator overnight. Currently she is on the noninvasive ventilator with 32% FiO2 and saturations 100%. She does wake up, she raises her hands off the bed at the elbows, she wiggles her toes. Plan: Stable off Solu-Medrol for 1 day. Continue albuterol, ipratropium and budesonide nebulizers. Continue Vest q.i.d.. She is not producing much sputum with the vest treatment. Continue meropenem day 4. 04/27/23: Patient remains clinically stable on 2 L nasal cannula saturation 92%. She wears a noninvasive ventilator at night. She is afebrile. White blood cell count 8.2, weight is 60 kilos. She miles if she is in no respiratory distress. Plan: Stable off of steroids for 2 days, no wheezing. Continue albuterol, ipratropium budesonide nebulizers, vest q.i.d.. Continue meropenem day 5 and will discontinue after 7 days. Will follow with you. (2) Acute on chronic respiratory failure with hypoxia and hypercapnia: Code(s): J96.21 - Acute and chronic respiratory failure with hypoxia; J96.22 - Acute and chronic respiratory failure with hypercapnia Status: Acute Assessment and Plan: Patient with a history of COVID in April of 2022 required a tracheostomy and was admitted to an LTAC, [place] in [facility]. The daughter tells me she was de cannulated about 30 days later. Patient has a history of multiple aspiration events requiring intubation 5 times (, 01/27/2023, 02/12/2023, 03/25/2023, 04/04/2023). She is maintained on noninvasive ventilator at her living facility. She has continued chronic hypercarbic respiratory failure with a blood gas on 04/21/2023 on 2 L of 7.43/59/69. Plan: Patient has multiple intubations for presumed aspiration events in the past and currently she has a poor mental status at baseline and is decondition with
[2023-04-27 13:04] LABS: Glucose Point of Care 142 mg/dl (65-105)
--- NOTE | 2023-04-27 13:44 | WPDANESEPPF ---
Anes - Initial Pre Proc Eval Procedure: Operation Date: 04/25/23 15:00 Proposed Procedures p Percutaneous Endoscopic Gastrostomy - Shawn Nguyen MD Operation Date: 04/27/23 13:15 Proposed Procedures p Tracheostomy - Hawk Peñaloza MD Date/Time: 04/27/23 13:44 Surgeon: Wagner Vogel MD Pre Op Diagnosis: UTI, Dehydration Patient Data Age: 77 Gender: F Height: 1.68 m Weight: 59.7 kg Last Vital Signs Temp 36.2 C L 04/27/23 13:10 Pulse 75 04/27/23 13:10 Resp 22 H 04/27/23 13:10 BP 116/75 04/27/23 13:10 Pulse Ox 95 04/27/23 13:10 O2 Del Method BiPAP 04/27/23 13:10 O2 Flow Rate 2 04/27/23 12:00 FiO2 40 04/27/23 13:10 Allergies Allergy/AdvReac Type Severity Reaction Status Date / Time No Known Allergies Allergy Verified 04/25/23 14:26 Home Medications Medication Instructions Recorded Confirmed Type acetaminophen 500 mg tablet 500 mg feeding tube Q4H PRN Pain 04/04/23 04/18/23 History (Scale Score 1-3) amlodipine 10 mg tablet 10 mg feeding tube DAILY 04/04/23 04/18/23 History bisacodyl 10 mg rectal suppository 10 mg RECTAL DAILY PRN Constipation 04/04/23 04/18/23 History budesonide-formoterol HFA 80 2 puff inhalation Q12H 04/04/23 04/18/23 History mcg-4.5 mcg/actuation aerosol inhaler carboxymethylcellulose sodium 1 % 2 drp EACH EYE Q8H PRN Dry Eyes 04/04/23 04/18/23 History eye liquid gel drops diclofenac sodium 1 % topical gel 1 ea topical QID 04/04/23 04/18/23 History docusate sodium 50 mg/5 mL oral 100 mg feeding tube BID 04/04/23 04/18/23 History liquid enoxaparin 40 mg/0.4 mL 40 mg subcut DAILY 04/04/23 04/18/23 History subcutaneous syringe kit famotidine 20 mg tablet 20 mg feeding tube BID 04/04/23 04/18/23 History insulin lispro 100 unit/mL 1 sliding scale dose subcut 04/04/23 04/18/23 History subcutaneous cartridge (Humalog USEASDIRECTD U-100 Insulin) ipratropium 0.5 mg-albuterol 3 mg 3 ml inhalation Q6H PRN Shortness 04/04/23 04/18/23 History (2.5 mg base)/3 mL nebulization Of Breath Or Wheezing soln levetiracetam 100 mg/mL oral 750 mg feeding tube Q12H 04/04/23 04/18/23 History solution (Keppra) magnesium citrate (Citroma oral 300 ml feeding tube DAILY PRN 04/04/23 04/18/23 History solution) Constipation magnesium hydroxide 400 mg/5 mL 30 ml feeding tube HS PRN 04/04/23 04/18/23 History oral suspension (Milk of Magnesia) Constipation metoprolol tartrate 25 mg tablet 25 mg feeding tube BID 04/04/23 04/18/23 History mirtazapine 7.5 mg tablet 7.5 mg feeding tube HS 04/04/23 04/18/23 History scopolamine base 1 mg over 3 days 1 patch transdermal Q3D 04/04/23 04/18/23 History transdermal patch sodium phosphates 19 gram-7 197 ml RECTAL DAILY PRN 04/04/23 04/18/23 History gram/118 mL enema (Fleet Enema) Constipation levofloxacin 750 mg tablet 750 mg feeding tube DAILY 6 days 04/12/23 04/18/23 Rx #6 tabs Laboratory Tests 04/26/23 04/26/23 04/27/23 17:29 18:01 00:19 WBC 8.2 K/mm3 (4.5-10.0) RBC 3.09 L M/mm3 (4.2-5.4) Hgb 8.6 L g/dL (12.0-15.0) Hct 30.2 L % (37.0-47.0) MCV 97.7 fl (80-100) MCH 27.8 pg (26-34) MCHC 28.5 L g/dl (32-36) RDW 18.6 H % (11.5-14.5) Plt Count 279 k/mm3 (150-375) MPV 9.8 fl (7.4-10.4) Immature Gran % (Auto) 0.6 H % (0-0.5) Neut % (Auto) 83.4 H % (45.5-73.1) Lymph % (Auto) 8.7 L % (18.3-44.2) [place] % (Auto) 7.2 % (2.6-8.5) Eos % (Auto) 0.0 % (0-4.4) Baso % (Auto) 0.1 L % (0.2-1.2) Lymph # (Auto) 0.71 L K/mm3 (0.9-3.2) [place] # (Auto) 0.6 K/mm3 (0.1-0.6) Eos # (Auto) 0.0 K/mm3 (0-0.3) Baso # (Auto) 0.0 K/mm3 (0.0-0.1) Abs Immat Gran (auto) 0.05 H K/mm3 (0.00-0.031) Absolute Neuts (auto) 6.8 H K/mm3 (1.3-6.7) Absolute Nucleated RBC 0.0
[2023-04-27 14:07] LABS: Glucose Point of Care 128 mg/dl (65-105)
[2023-04-27] MEDS: ceFAZolin SODIUM 1 GM VIAL IV PUSH (14:36)
--- NOTE | 2023-04-27 14:45 | SUR.OPER ---
Patient arrived with august catheter, 300ml of phillip urine emptied
[2023-04-27] MEDS: LIDO 1%/EPINEPHRINE 1:100,000 50 ML VIAL INFILTRATE (14:51)
--- NOTE | 2023-04-27 15:34 | W.PM.PROC2 ---
Procedure Note - Detailed Date of Procedure 04/27/23 Pre-op Diagnosis Respiratory failure Post-op Diagnosis Same Procedure Performed tracheostomy Surgeon Hawk Peñaloza MD Anesthesia General Indications see above Findings trach placed successfully 6 cuffed Shile Description of Procedure y patient identified consent verified the floor patient brought ice patient brought down to the OR. Patient brought back to the room. Patient prepped draped position intubated. Procedure confirmed 2nd time-out performed. 5 cc injected after the patient was prepped over the previous scar Bovie electrocautery utilized to cut down to the trachea scar tissue DrAlexi The trachea. Anesthesia was made aware. Trach at many crater the 15 blade. Trach footwear sales representative utilized to spread cricoid placed 6 Shiley placed after anesthesia removed the ET tube. No complications no blood loss. Four corner sutures placed trach ties placed patient tolerated procedure well. Urine Output 775 Drains No Packing No Pathology None sent Complications No immediate complications Condition Stable Disposition PACU [facility] Billing Surgery - Charge Forward: Surgery Billing
--- NOTE | 2023-04-27 15:52 | WPDINTPN ---
Progress Note: A&P Assessment and Plan (1) Acute on chronic respiratory failure with hypoxia and hypercapnia: Code(s): J96.21 - Acute and chronic respiratory failure with hypoxia; J96.22 - Acute and chronic respiratory failure with hypercapnia Status: Acute Assessment and Plan: Patient has multifactorial respiratory failure secondary to COPD, deconditioning, recurrent aspiration pneumonia requiring multiple intubations. Patient now had tracheostomy done today and has size 6 cuffed Shiley trach I have placed patient on oxygen with a Airvo attached to her tracheostomy and set to 40% FiO2 and 30 L of flow with humidification Patient at this time is spontaneously breathing. If she continues to maintain her saturation I will check an ABG to ensure ventilation. Depending on ABG results she may need to go to positive pressure ventilation. Check chest x-ray Patient is on bronchodilators which will be continued She is currently on meropenem which will be continued (2) COPD (chronic obstructive pulmonary disease): Code(s): J44.9 - Chronic obstructive pulmonary disease, unspecified Status: Acute Assessment and Plan: See above (3) Seizures: Code(s): R56.9 - Unspecified convulsions Status: Acute Assessment and Plan: Continue Keppra (4) Hyperglycemia: Code(s): R73.9 - Hyperglycemia, unspecified Status: Acute Assessment and Plan: Continue insulin and Lantus Plan DVT prophylaxis -Lovenox Stress ulcer prophylaxis -Pepcid Nutrition -resume Tube Feeds Code Status -patient is DNR Total Critical Care Time - 30 minutes Due to a high probability of clinically significant, life threatening deterioration, the patient required my highest level of preparedness to intervene emergently and I personally spent this critical care time directly and personally managing the patient. This critical care time included obtaining a history; examining the patient; pulse oximetry; ordering and review of studies; arranging urgent treatment with development of a management plan; evaluation of patient's response to treatment; frequent reassessment; and discussions with other providers. It was exclusive of separately billable procedures and treating other patients and teaching time. Please see Assessment and Plan section and the rest of the note for further information on patient assessment and treatment Subjective Date/time seen: 04/27/23 Patient underwent elective tracheostomy today in the operating room and was admitted to ICU for closer monitoring postprocedure for her respiratory failure. Patient is still drowsy from anesthesia and is not able to answer any questions or follow commands. She is spontaneously breathing and was placed on Airvo attached to her tracheostomy. Her vital signs acceptable map of 88 heart rate of 79 normal sinus rhythm and respiratory rate in 20s. Interval history: 04/24/2023:? This is a new pulmonary consult for chronic hypercarbic respiratory failure. COVID in April 2022, requiring tracheostomy and PEG tube placement admitted to [place] in [facility] and decannulated approximately 4 weeks later., essential hypertension, GERD, seizures, COPD.? Patient was admitted on 07/17/2022 and intubated for presumed aspiration pneumonia and respiratory failure, extubated on 07/21.? Patient was admitted 02/12 for respiratory failure and admitted from 01/27/2023 and intubated through 02/07/2023.? She had respiratory failure in house and was reintubated on 02/12 and extubated 02/17.? DATA EXAMINATION: CTA chest PE protocol DATE: 04/23/2023 10:01 INDICATION: Shortness of breath. TECHNIQUE: Computed tomography angiography (CTA) of the chest was performed with 100 mL Omnipaque-350 intravenous contrast timed to evaluate the pulmonary arteries. Coronal maximum intensity projection 3D-reconstructions were created by the technologist. Automated exposure control and iterative rec
[2023-04-27 16:46] LABS: Basophils Percent Auto 0.3 % (0.2-1.2); Eosinophils Percent Auto 0.3 % (0-4.4); Hemoglobin 9.5 g/dL (12.0-15.0); Immature Granulocyte Absolute 0.18 K/mm3 (0.00-0.031); Immature Granulocyte Percent A 2.7 % (0-0.5); Lymphocytes Percent Auto 10.7 % (18.3-44.2); Mean Corpuscular HGB Conc 28.8 g/dl (32-36); Mean Corpuscular Volume 97.3 fl (80-100); Mean Platelet Volume 9.9 fl (7.4-10.4); Monocytes Absolute Auto 0.4 K/mm3 (0.1-0.6); Monocytes Percent Auto 6.6 % (2.6-8.5); Neutrophils Absolute Auto 5.2 K/mm3 (1.3-6.7); Neutrophils Percent Auto 79.4 % (45.5-73.1); Nucleated Red Blood Cells Perc 0.3 % (0.0-0.2); Platelet Count Result 298 k/mm3 (150-375); Red Blood Count 3.39 M/mm3 (4.2-5.4); Red Cell Distribution Width 18.4 % (11.5-14.5); White Blood Count 6.6 K/mm3 (4.5-10.0)
[2023-04-27 16:59] LABS: Anion Gap 3 mmol/L (8-16); Blood Urea Nitrogen 16 mg/dL (7-17); Calcium 8.4 mg/dL (8.4-10.2); Carbon Dioxide 37 mmol/L (22-30); Chloride 99 mmol/L (98-107); Estimated CRCL calculation 112 ml/min; Estimated Glomerular Filt Rate > 60; Glucose 116 mg/dL (65-110); Potassium 3.6 mmol/L (3.4-5.0); Sodium 139 mmol/L (137-145)
[2023-04-27 17:18] LABS: Alveolar/Arterial O2 Gradient 309.3 mmHg; Base Excess ABG 9.2 mEq/l (+/-2.0); Fractional Inspired Oxygen 60 %; HCO3 ABG 35.4 mEq/l (22.0-26.0); Oxygen Content ABG 14.6 %vol (16.0-22.0); Oxygen Saturation ABG 89.6 % (95.0-100.0); PCO2 ABG 55.8 mmHg (35.0-45.0); PO2 ABG 57.1 mmHg (80.0-100.0); PO2 FiO2 Ratio Arterial Blood 0.95 %; Total Hemoglobin 11.8 g/dL (12.0-18.0)
[2023-04-27 17:19] LABS: Device HIGH FLOW THERAPY; Modified Allen's Test Pass; Oxyhemoglobin 87.7 % THb (90.0-100.0); Site Drawn LEFT RADIAL
[2023-04-27 17:23] LABS: Hypochromasia 1+ (NORMAL); Platelet Estimate Adequate (Adequate)
[2023-04-27 17:24] LABS: Ovalocytes 1+ (NORMAL); Schistocytes None Seen (NORMAL); Target Cells 1+ (NORMAL)
[2023-04-27 18:20] LABS: Glucose Point of Care 119 mg/dl (65-105)
[2023-04-27] MEDS: INSULIN ASPART (*BKC) 100 UNITS/ML 6 UNITS SUB-Q (18:43)
[2023-04-28] VITALS (37 sets, daily range): BP systolic 72–111; BP diastolic 49–72; PULSE 90–116; RESP 12–36; TEMP 36.4–37.3; O2SAT 94–100
[2023-04-28 00:53] LABS: Glucose Point of Care 137 mg/dl (65-105)
[2023-04-28] MEDS: IPRATROPIUM BR 0.02% INH SOLN 0.5 MG/2.5 ML VIAL INHALATION ×7 (01:19→23:30)
[2023-04-28] MEDS: LEVALBUTEROL NEB 1.25 MG/3 ML INHALATION ×7 (01:19→23:29)
[2023-04-28] MEDS: LACTATED RINGERS 500 ML IV CONT (02:10)
[2023-04-28] MEDS: MEROPENEM 1 GM/NS 100 ML 1 GM/100 ML BAG IVPB ×3 (04:46→21:53)
[2023-04-28 05:23] LABS: Alveolar/Arterial O2 Gradient 147.4 mmHg; Base Excess ABG 12.5 mEq/l (+/-2.0); Fractional Inspired Oxygen 40 %; HCO3 ABG 36.5 mEq/l (22.0-26.0); Oxygen Content ABG 14.2 %vol (16.0-22.0); Oxygen Saturation ABG 97.3 % (95.0-100.0); Oxyhemoglobin 95.6 % THb (90.0-100.0); PCO2 ABG 44.9 mmHg (35.0-45.0); PO2 ABG 86.2 mmHg (80.0-100.0); PO2 FiO2 Ratio Arterial Blood 2.15 %; Total Hemoglobin 10.5 g/dL (12.0-18.0)
[2023-04-28 05:26] LABS: Modified Allen's Test Pass; Site Drawn LEFT RADIAL; pH ABG 7.528 (7.350-7.450)
[2023-04-28 05:27] LABS: Device BIPAP; Expiratory Pressure 6 cmH2O
[2023-04-28] MEDS: INSULIN ASPART (*BKC) 100 UNITS/ML 6 UNITS SUB-Q ×2 (05:37→12:25)
[2023-04-28] MEDS: INSULIN ASPART (*BKC) 100 UNITS/ML SUB-Q (05:37)
[2023-04-28] MEDS: SALINE LOCK FLUSH 10 ML IV PUSH ×3 (05:38→21:53)
[2023-04-28 05:52] LABS: Glucose Point of Care 292 mg/dl (65-105)
[2023-04-28 05:58] LABS: Basophils Percent Auto 0.1 % (0.2-1.2); Eosinophils Percent Auto 0.2 % (0-4.4); Hematocrit 31.8 % (37.0-47.0); Hemoglobin 9.2 g/dL (12.0-15.0); Immature Granulocyte Absolute 0.18 K/mm3 (0.00-0.031); Immature Granulocyte Percent A 2.2 % (0-0.5); Lymphocytes Absolute Auto 0.69 K/mm3 (0.9-3.2); Lymphocytes Percent Auto 8.5 % (18.3-44.2); Mean Corpuscular HGB Conc 28.9 g/dl (32-36); Mean Corpuscular Hemoglobin 27.5 pg (26-34); Mean Corpuscular Volume 94.9 fl (80-100); Monocytes Absolute Auto 0.5 K/mm3 (0.1-0.6); Monocytes Percent Auto 5.7 % (2.6-8.5); Neutrophils Absolute Auto 6.7 K/mm3 (1.3-6.7); Neutrophils Percent Auto 83.3 % (45.5-73.1); Nucleated Red Blood Cells Perc 0.4 % (0.0-0.2); Platelet Count Result 291 k/mm3 (150-375); Red Blood Count 3.35 M/mm3 (4.2-5.4); Red Cell Distribution Width 18.6 % (11.5-14.5); White Blood Count 8.1 K/mm3 (4.5-10.0)
[2023-04-28 06:00] LABS: Anion Gap 3 mmol/L (8-16); Blood Urea Nitrogen 16 mg/dL (7-17); Calcium 7.9 mg/dL (8.4-10.2); Carbon Dioxide 37 mmol/L (22-30); Chloride 98 mmol/L (98-107); Estimated CRCL calculation 112 ml/min; Estimated Glomerular Filt Rate > 60; Glucose 271 mg/dL (65-110); Potassium 3.3 mmol/L (3.4-5.0); Sodium 138 mmol/L (137-145)
[2023-04-28] MEDS: BUDESONIDE RESPULE NEB 0.5 MG/2 ML AMP INHALATION ×2 (07:41→20:31)
--- NOTE | 2023-04-28 08:04 | WPDANESPN ---
Anes - Prog Note Post-Op Date/Time: 04/28/23 08:04 Cardiovascular status: other (baseline) Respiratory status: other (Tracheostomy placed yesterday, patient breathing spontaneously on ventilator) Airway patency: other (Tracheostomy) Mental status: baseline Post-Op hydration status: normal Vital Signs: Last Vital Signs Temp 37.0 C 04/28/23 04:00 Pulse 116 H 04/28/23 07:41 Resp 24 H 04/28/23 07:41 BP 83/58 L 04/28/23 06:00 Pulse Ox 100 04/28/23 07:35 O2 Del Method BiPAP 04/28/23 07:35 O2 Flow Rate 45 04/27/23 20:00 FiO2 40 04/28/23 04:00 Pain Score (VAS): Patient asleep, no nonverbal signs of pain present at this time. I/O: Intake & Output 04/27/23 04/28/23 04/28/23 23:59 07:59 15:59 Intake Total 164 1588 Output Total 500 250 Balance -336 1338 Laboratory Tests 04/28/23 05:36 04/27/23 04/27/23 04/27/23 11:35 12:01 14:02 WBC RBC Hgb Hct MCV MCH MCHC RDW Plt Count MPV Immature Gran % (Auto) Neut % (Auto) Lymph % (Auto) [place] % (Auto) Eos % (Auto) Baso % (Auto) Lymph # (Auto) [place] # (Auto) Eos # (Auto) Baso # (Auto) Abs Immat Gran (auto) Absolute Neuts (auto) Absolute Nucleated RBC Nucleated RBC % Platelet Estimate Hypochromasia Target Cells Ovalocytes Schistocytes Puncture Site ABG pH ABG pCO2 ABG pO2 ABG PO2/FiO2 Ratio ABG HCO3 ABG O2 Saturation ABG O2 Content ABG Base Excess A-a Gradient Oxyhemoglobin Total Hemoglobin O2 Delivery Device O2 Liters/Min FiO2 Expiratory Pressure Inspiratory Pressure Sodium Potassium Chloride Carbon Dioxide Anion Gap BUN Creatinine Estim Creat Clear Calc Estimated GFR Glucose POC Capillary Glucose 68 142 H 128 H Calcium 04/27/23 04/27/23 04/27/23 16:30 16:40 18:18 WBC 6.6 RBC 3.39 L Hgb 9.5 L Hct 33.0 L MCV 97.3 MCH 28.0 MCHC 28.8 L RDW 18.4 H Plt Count 298 MPV 9.9 Immature Gran % (Auto) 2.7 H Neut % (Auto) 79.4 H Lymph % (Auto) 10.7 L [place] % (Auto) 6.6 Eos % (Auto) 0.3 Baso % (Auto) 0.3 Lymph # (Auto) 0.70 L [place] # (Auto) 0.4 Eos # (Auto) 0.0 Baso # (Auto) 0.0 Abs Immat Gran (auto) 0.18 H Absolute Neuts (auto) 5.2 Absolute Nucleated RBC 0.0 Nucleated RBC % 0.3 H Platelet Estimate Adequate Hypochromasia 1+ Target Cells 1+ Ovalocytes 1+ Schistocytes None seen Puncture Site Left radial ABG pH 7.420 ABG pCO2 55.8 H ABG pO2 57.1 L ABG PO2/FiO2 Ratio 0.95 ABG HCO3 35.4 H ABG O2 Saturation 89.6 L ABG O2 Content 14.6 L ABG Base Excess 9.2 A-a Gradient 309.3 Oxyhemoglobin 87.7 L* Total Hemoglobin 11.8 L O2 Delivery Device High flow therapy O2 Liters/Min 45.0 FiO2 60 Expiratory Pressure Inspiratory Pressure Sodium 139 Potassium 3.6 Chloride 99 Carbon Dioxide 37 H Anion Gap 3 L BUN 16 Creatinine 0.30 L Estim Creat Clear Calc 112 Estimated GFR > 60 Glucose 116 H POC Capillary Glucose 119 H Calcium 8.4 04/28/23 04/28/23 04/28/23 00:32 05:12 05:35 WBC RBC Hgb Hct MCV MCH MCHC RDW Plt Count MPV Immature Gran % (Auto) Neut % (Auto) Lymph % (Auto) [place] % (Auto) Eos % (Auto) Baso % (Auto) Lymph # (Auto) [place] # (Auto) Eos # (Auto) Baso # (Auto) Abs Immat Gran (auto) Absolute Neuts (auto) Absolute Nucleated RBC Nucleated RBC % Platelet Estimate Hypochromasia Target Cells Ovalocytes Schistocytes Puncture Site Left radial ABG pH 7.528 H* ABG pCO2 44.9 ABG pO2 86.2 ABG PO2/FiO2 Ratio 2.15 ABG HCO3 36.5 H ABG O2 Saturation 97.3 ABG O2 Content 14.2 L ABG Base Excess 12.5 A-a Gradient 147.4 Oxyhemoglobin 95.6 T
[2023-04-28 08:12] LABS: Anisocytosis 1+ (NORMAL); Hypochromasia 1+ (NORMAL); Platelet Estimate Adequate (Adequate); Schistocytes None Seen (NORMAL)
--- NOTE | 2023-04-28 08:18 | WPDINTPN ---
Progress Note: A&P Assessment and Plan (1) Acute on chronic respiratory failure with hypoxia and hypercapnia: Code(s): J96.21 - Acute and chronic respiratory failure with hypoxia; J96.22 - Acute and chronic respiratory failure with hypercapnia Status: Acute Assessment and Plan: Patient has multifactorial respiratory failure secondary to COPD, deconditioning, recurrent aspiration pneumonia requiring multiple intubations. Patient now had tracheostomy done today and has size 6 cuffed Shiley trach ABG reviewed-continue Airvo attached to her tracheostomy and set to 40% FiO2 and 30 L of flow with humidification during the day and wean FiO2 Overnight continue AVAPS. I will decrease AVAPS tidal volume to 350 and rate to 12 Patient at this time is spontaneously breathing. If she continues to maintain her saturation I will check an ABG to ensure ventilation. Depending on ABG results she may need to go to positive pressure ventilation. Chest x-ray reviewed Patient is on bronchodilators which will be continued She is currently on meropenem which will be continued May need thoracentesis On the left (2) COPD (chronic obstructive pulmonary disease): Code(s): J44.9 - Chronic obstructive pulmonary disease, unspecified Status: Acute Assessment and Plan: See above (3) Seizures: Code(s): R56.9 - Unspecified convulsions Status: Acute Assessment and Plan: Continue Keppra (4) Hyperglycemia: Code(s): R73.9 - Hyperglycemia, unspecified Status: Acute Assessment and Plan: Continue insulin and Lantus Plan DVT prophylaxis -Lovenox Stress ulcer prophylaxis -Pepcid Nutrition -continue Tube Feeds Code Status -patient is DNR Total Critical Care Time - 30 minutes Due to a high probability of clinically significant, life threatening deterioration, the patient required my highest level of preparedness to intervene emergently and I personally spent this critical care time directly and personally managing the patient. This critical care time included obtaining a history; examining the patient; pulse oximetry; ordering and review of studies; arranging urgent treatment with development of a management plan; evaluation of patient's response to treatment; frequent reassessment; and discussions with other providers. It was exclusive of separately billable procedures and treating other patients and teaching time. Please see Assessment and Plan section and the rest of the note for further information on patient assessment and treatment Subjective Date/time seen: 04/28/23 Patient underwent elective tracheostomy yesterday in the operating room and was admitted to ICU for closer monitoring postprocedure for her respiratory failure.? Patient was on Airvo yesterday and was placed on AVAPS overnight. She had a soft blood pressure overnight and received fluid bolus. This morning she is awake and alert and follows commands. She is not in any distress. She does nodes are head negative to pain or shortness of breath Interval history: 04/24/2023:? This is a new pulmonary consult for chronic hypercarbic respiratory failure. COVID in April 2022, requiring tracheostomy and PEG tube placement admitted to [place] in [facility] and decannulated approximately 4 weeks later., essential hypertension, GERD, seizures, COPD.? Patient was admitted on 07/17/2022 and intubated for presumed aspiration pneumonia and respiratory failure, extubated on 07/21.? Patient was admitted 02/12 for respiratory failure and admitted from 01/27/2023 and intubated through 02/07/2023.? She had respiratory failure in house and was reintubated on 02/12 and extubated 02/17.? DATA EXAMINATION: CTA chest PE protocol DATE: 04/23/2023 10:01 INDICATION: Shortness of breath. TECHNIQUE: Computed tomography angiography (CTA) of the chest was performed with 100 mL Omnipaque-350 intravenous contrast timed to evaluate the pulmonary arteries
[2023-04-28] MEDS: LACTATED RINGERS 500 ML 999 ML IV CONT (08:24)
[2023-04-28] MEDS: POTASSIUM CHLORIDE 20 MEQ PACKET (FOR LIQUID) 40 MEQ FEED TUBE (08:28)
[2023-04-28] MEDS: FAMOTIDINE 20 MG TABLET FEED TUBE ×2 (08:28→21:53)
[2023-04-28] MEDS: ENOXAPARIN 40 MG/0.4 ML SYRINGE SUB-Q (08:29)
[2023-04-28] MEDS: DICLOFENAC SODIUM 1% 100 GM GEL (*BKC) 1 APPLIC TOPICAL ×3 (08:29→21:54)
[2023-04-28] MEDS: INSULIN GLARGINE (*BKC) 100 UNITS/ML 15 UNITS SUB-Q (08:39)
[2023-04-28] MEDS: levETIRAcetam ORAL SOL 500 MG/5 ML UDC 750 MG FEED TUBE ×2 (12:26→22:02)
[2023-04-28 12:56] LABS: Glucose Point of Care 147 mg/dl (65-105)
--- NOTE | 2023-04-28 15:11 | PM.PNPUL ---
Progress Note: A&P Assessment and Plan (1) COPD (chronic obstructive pulmonary disease): Code(s): J44.9 - Chronic obstructive pulmonary disease, unspecified Status: Acute Assessment and Plan: Patient with severe upper lobe predominant panlobular emphysema on her CT scan. I have no PFTs. 04/24/23: I spoke with the hospitalist she has not had any recent wheezing and I am not convinced the patient has a active COPD exacerbation at this time. Plan: I will decrease the Solu-Medrol to 20 mg IV q.6 and if she is clinically stable will discontinue them on 04/25/2023. I will increase the frequency of her levalbuterol and ipratropium nebulizers to q.4 hours. I will add nebulized budesonide 500 mcg b.i.d. patient is been on a scopolamine patch from her living facility. This will decrease her secretions but is places the patient at risk for mucus plugging and I will discontinue today. The patient cannot expectorate phlegm at this point and I will give her a trial of vest therapy q.i.d.. I spoke with respiratory therapy. Patient may have aspiration pneumonia and agree with vancomycin and meropenem. 04/25/23: Patient tolerated 2 L nasal cannula throughout the day yesterday and last night wore the noninvasive ventilator with the AVAPS mode on 32%. White blood cell count 25.2, creatinine 0.4. Chest x-ray with small effusions, no change in her infiltrates. She tries to mouth good morning, she did attempt to cough today by taking a deep breath with minimal ground that was totally ineffective, she did not move her hands to verbal command she wiggled her toes to verbal commands. Currently she is on 2 L nasal cannula saturations 98%. No wheezes on exam. Plan: I will discontinue her Solu-Medrol today. I will continue albuterol, ipratropium nebulizers q.4 hours and continue nebulized budesonide 500 b.i.d.. Continue Vest q.i.d.. She is afebrile since 04/23 at 1:00 p.m. on vancomycin and meropenem, day 3 would continue. Patient to have PEG tube examined and/or replaced by GI later today. 1/4/24: Patient was off the noninvasive ventilator yesterday during the day and wore the hospital noninvasive ventilator overnight. Currently she is on the noninvasive ventilator with 32% FiO2 and saturations 100%. She does wake up, she raises her hands off the bed at the elbows, she wiggles her toes. Plan: Stable off Solu-Medrol for 1 day. Continue albuterol, ipratropium and budesonide nebulizers. Continue Vest q.i.d.. She is not producing much sputum with the vest treatment. Continue meropenem day 4. 04/27/23: Patient remains clinically stable on 2 L nasal cannula saturation 92%. She wears a noninvasive ventilator at night. She is afebrile. White blood cell count 8.2, weight is 60 kilos. She miles if she is in no respiratory distress. Stable off of steroids for 2 days, no wheezing. Continue albuterol, ipratropium budesonide nebulizers, vest q.i.d.. Continue meropenem day 5 and will discontinue after 7 days. 04/28/23: She is stable following trachelotomy placement, on weaning amounts of oxygen now on Airvo, does not need mechanical ventilation. (2) Acute on chronic respiratory failure with hypoxia and hypercapnia: Code(s): J96.21 - Acute and chronic respiratory failure with hypoxia; J96.22 - Acute and chronic respiratory failure with hypercapnia Status: Acute Assessment and Plan: Patient with a history of COVID in April of 2022 required a tracheostomy and was admitted to an LTAC, [facility] in [facility]. The daughter tells me she was de cannulated about 30 days later. Patient has a history of multiple aspiration events requiring intubation 5 times (, 01/27/2023, 02/12/2023, 03/25/2023, 04/04/2023). She is maintained on noninvasive ventilator at her living facility. She has continued chronic hypercarbic respiratory failure with a blood gas on 04/21/2023 on 2
[2023-04-28 19:13] LABS: Glucose Point of Care 87 mg/dl (65-105)
[2023-04-29] VITALS (27 sets, daily range): BP systolic 95–115; BP diastolic 57–69; PULSE 98–121; RESP 12–40; TEMP 36.4–37; O2SAT 95–100
[2023-04-29 00:29] LABS: Glucose Point of Care 133 mg/dl (65-105)
[2023-04-29] MEDS: INSULIN ASPART (*BKC) 100 UNITS/ML 6 UNITS SUB-Q ×3 (01:50→12:55)
[2023-04-29] MEDS: MEROPENEM 1 GM/NS 100 ML 1 GM/100 ML BAG IVPB ×2 (03:52→12:56)
[2023-04-29] MEDS: LEVALBUTEROL NEB 1.25 MG/3 ML INHALATION ×5 (04:41→23:50)
[2023-04-29] MEDS: IPRATROPIUM BR 0.02% INH SOLN 0.5 MG/2.5 ML VIAL INHALATION ×5 (04:42→23:50)
[2023-04-29 05:10] LABS: Hemoglobin 8.9 g/dL (12.0-15.0); Mean Corpuscular HGB Conc 28.7 g/dl (32-36); Mean Corpuscular Hemoglobin 27.6 pg (26-34); Mean Corpuscular Volume 96.3 fl (80-100); Mean Platelet Volume 9.9 fl (7.4-10.4); Platelet Count Result 311 k/mm3 (150-375); Red Blood Count 3.22 M/mm3 (4.2-5.4); Red Cell Distribution Width 19.5 % (11.5-14.5); White Blood Count 8.1 K/mm3 (4.5-10.0)
[2023-04-29 05:20] LABS: Alanine Aminotransferase 12 U/L (6-35); Albumin Level 2.6 g/dL (3.5-5.1); Alkaline Phosphatase 73 U/L (38-126); Anion Gap 1 mmol/L (8-16); Aspartate Amino Transferase 27 U/L (14-36); Bilirubin,Total 0.6 mg/dL (0.2-1.3); Blood Urea Nitrogen 16 mg/dL (7-17); Calcium 8.1 mg/dL (8.4-10.2); Carbon Dioxide 36 mmol/L (22-30); Chloride 101 mmol/L (98-107); Estimated CRCL calculation 155 ml/min; Estimated Glomerular Filt Rate > 60; Glucose 106 mg/dL (65-110); Potassium 4.3 mmol/L (3.4-5.0); Sodium 138 mmol/L (137-145)
[2023-04-29] MEDS: SALINE LOCK FLUSH 10 ML IV PUSH ×3 (05:23→20:21)
[2023-04-29] MEDS: BUDESONIDE RESPULE NEB 0.5 MG/2 ML AMP INHALATION ×2 (08:59→20:51)
[2023-04-29] MEDS: ENOXAPARIN 40 MG/0.4 ML SYRINGE SUB-Q (10:21)
[2023-04-29] MEDS: levETIRAcetam ORAL SOL 500 MG/5 ML UDC 750 MG FEED TUBE (10:21)
[2023-04-29] MEDS: FAMOTIDINE 20 MG TABLET FEED TUBE ×2 (10:21→16:46)
[2023-04-29] MEDS: DICLOFENAC SODIUM 1% 100 GM GEL (*BKC) 1 APPLIC TOPICAL ×4 (10:24→20:21)
[2023-04-29] MEDS: INSULIN GLARGINE (*BKC) 100 UNITS/ML 15 UNITS SUB-Q (10:27)
[2023-04-29 11:48] LABS: Glucose Point of Care 204 mg/dl (65-105)
[2023-04-29] MEDS: INSULIN ASPART (*BKC) 100 UNITS/ML SUB-Q (12:55)
--- NOTE | 2023-04-29 16:06 | PM.IMPN ---
Progress Note: A&P Assessment and Plan (1) Respiratory insufficiency: Code(s): R06.89 - Other abnormalities of breathing Status: Acute (2) Seizures: Code(s): R56.9 - Unspecified convulsions Status: Acute (3) COPD (chronic obstructive pulmonary disease): Code(s): J44.9 - Chronic obstructive pulmonary disease, unspecified Status: Acute (4) Chronic respiratory failure with hypoxia and hypercapnia: Code(s): J96.11 - Chronic respiratory failure with hypoxia; J96.12 - Chronic respiratory failure with hypercapnia Status: Acute (5) Tracheostomy dependence: Code(s): Z93.0 - Tracheostomy status Status: Acute Plan A pleasant 77-year-old female with past medical history CVA with resultant right-sided deficits and chronic deconditioning and bedbound status, typically has some strength in her left upper extremity only, G-tube, COPD with chronic hypoxic hypercarbic respiratory failure [facility] 2 [facility] and [facility] ventilation, chronic indwelling Tam catheter, GERD, pulmonary hypertension, anemia, and history of DVT on Lovenox and IVC filter, and seizures, diastolic dysfunction presented from prison as the staff noted wheezing. She received neb treatment in EMS and was not wheezing upon arrival. The patient has acute on chronic respiratory failure has been treated. She received 7 days of antibiotics-cefepime vancomycin Flagyl and finally meropenem. Schedule nebs continues. IV steroids have been stopped. Hypernatremia has resolved. Continue free water flushes q.4 hours. UTI with Bree tropicalis treated with micafungin. Pulmonology was consulted. The patient has recurrent aspirations with respiratory failure and multiple intubations. She had been using noninvasive ventilator at the prison but that was relatively contraindicated due to the patient's extreme weakness. She is post tracheostomy with 6 Shiley cuff on April 27. She previously had a tracheostomy in April of 2022 due to COVID and went to [facility] in [place] where she was decannulated 4 weeks later. Plan to discharge to LTAC for prolonged rehabilitation. She is now breathing spontaneously on Airvo with 45 L and 39% FiO2. Continue to appreciate pulmonology recommendations. Modified code. No CPR. On Lovenox. On Pepcid. Patient is stable. Subjective Date/time seen: 01/07/24 16:06 Interval history: No acute overnight events. The patient wakes up to voice. She smiles. Opens eyes and tracks. When asked if she has any pain or complaints she shakes her head no. She is able to squeeze with her left upper extremity. Review of Systems Review of Systems: All systems reviewed & are unremarkable except as noted in HPI and below (Subjective) Exam Const: General: comfortable and no acute distress Other: Tracks with eyes. Squeezes with left hand. Eyes: Pupils: Equal, round and reactive pupils present Neck: Other: Tracheostomy cuff intact in place. No secretions identified. Resp: Effort & Inspection: normal respiratory effort Auscultation: clear to auscultation bilaterally Cardio: Rate: regular rate Rhythm: regular rhythm Heart sounds: no gallops, no murmurs and no rubs GI: GI Palp: Yes Soft to palpation and No Tenderness to palpation present (GI) Neuro: Other: Bilateral lower extremities and right upper extremity flaccid left upper extremity 3/5 ophthalmic technician strength this is her normal. Extrem: General: no edema Objective Data Vital Signs Vital Signs: Vital Signs - 24 hr 04/28/23 16:22 04/28/23 16:31 04/28/23 17:50 Temperature Pulse Rate 106 H 105 H Respiratory Rate 36 H 27 H Blood Pressure Pulse Oximetry 96 Oxygen Delivery High Flow Therapy with Tr Oxygen Flow Rate 45 Fraction of Inspired Oxygen 40 04/28/23 19:26 04/28/23 20:32 04/28/23 20:46 Temperature 98.3 F Pulse Rate 104 H 100 103 H Respiratory Rate 18 25
--- NOTE | 2023-04-29 18:29 | PCRCNOTE ---
Window of time for administration has passed. See next scheduled administration.
[2023-04-29 18:48] LABS: Glucose Point of Care 85 mg/dl (65-105)
--- NOTE | 2023-04-29 19:27 | PM.PNPUL ---
Progress Note: A&P Assessment and Plan (1) Acute on chronic respiratory failure with hypoxia and hypercapnia: Code(s): J96.21 - Acute and chronic respiratory failure with hypoxia; J96.22 - Acute and chronic respiratory failure with hypercapnia Status: Acute Assessment and Plan: [facility]-admitted from [facility]; multiple medical issues; COPD with chronic hypoxic hypercarbic respiratory failure, requiring 40% O2, was on noninvasive ventilation at her [facility]. SSarlyn was brought in from the [facility] after staff observed wheezing, which was addressed with a nebulizer treatment during her EMS transport and had ceased upon her arrival. She has been diagnosed with acute exacerbation of chronic respiratory failure and has been treated with antibiotics, short-acting bronchodilators IV steroids. She underwent a tracheostomy with a 6 Shiley cuff on April 27; this was her second tracheostomy, the first being in April 2022 due to COVID-19, after which she was decannulated 4 weeks later at [facility] in [place]. (2) COPD (chronic obstructive pulmonary disease): Code(s): J44.9 - Chronic obstructive pulmonary disease, unspecified Status: Acute Assessment and Plan: Subjective Date/time seen: 04/29/23 19:27 Interval history: NEW CONSULT: Gabriela Aguayo is a 77-year-old female [facility] patient who was just discharged 2 days ago, has a stroke with right-sided weakness, deconditioning, bedbound status, weakness in the left upper extremity. She has COPD and uses oxygen at home. She is normally on 2 L and uses a noninvasive positive pressure device. Also has a [facility]. Her medical history includes a cerebrovascular accident resulting in right-sided deficits, chronic deconditioning, bedbound status, and limited strength in her left upper extremity. She has COPD with chronic hypoxic hypercarbic respiratory failure, requiring 2L nasal cannula and noninvasive ventilation at her [facility]. She also has chronic indwelling Tam catheter, GERD, pulmonary hypertension, anemia, a history of DVT treated with Lovenox and an IVC filter, seizures, and diastolic dysfunction. She was brought in from the [facility] after staff observed wheezing, which was addressed with a nebulizer treatment during her EMS transport and had ceased upon her arrival. She has been diagnosed with acute exacerbation of chronic respiratory failure and has been treated with antibiotics, short-acting bronchodilators IV steroids. She underwent a tracheostomy with a 6 Shiley cuff on April 27. This was her second tracheostomy, the first being in April 2022 due to COVID-19, after which she was decannulated 4 weeks later at [facility] in [place]. A chest CT showed lower lobe infiltrates bilaterally, related to pneumonia/atelectasis. Recent chest x-ray in addition to COPD showed increasing left pleural effusion. Will repeat chest x-ray in a.m. HISTORY = = = = = = = = = = = 04/24/2023:? This is a new pulmonary consult for chronic hypercarbic respiratory failure. COVID in April 2022, requiring tracheostomy and PEG tube placement admitted to [facility] in [facility] and decannulated approximately 4 weeks later., essential hypertension, GERD, seizures, COPD.? Patient was admitted on 07/17/2022 and intubated for presumed aspiration pneumonia and respiratory failure, extubated on 07/21.? Patient was admitted 02/12 for respiratory failure and admitted from 01/27/2023 and intubated through 02/07/2023.? She had respiratory failure in house and was reintubated on 02/12 and extubated 02/17.? On 03/25/2023 the patient was admitted to the hospital and transferred to higher level of care for concern for intercerebral hemorrhage.? She was transferred to [facility].? Intubated for 3 days. Discharged approximately 04/01/23.
[2023-04-30] VITALS (23 sets, daily range): BP systolic 95–146; BP diastolic 62–86; PULSE 4–110; RESP 14–24; TEMP 36.2–37.1; O2SAT 93–100
[2023-04-30] MEDS: levETIRAcetam ORAL SOL 500 MG/5 ML UDC 750 MG FEED TUBE ×2 (00:03→11:43)
[2023-04-30] MEDS: LEVALBUTEROL NEB 1.25 MG/3 ML INHALATION ×4 (02:59→16:28)
[2023-04-30] MEDS: IPRATROPIUM BR 0.02% INH SOLN 0.5 MG/2.5 ML VIAL INHALATION ×4 (02:59→16:29)
[2023-04-30 06:15] LABS: Glucose Point of Care 173 mg/dl (65-105)
[2023-04-30] MEDS: SALINE LOCK FLUSH 10 ML IV PUSH ×2 (06:25→14:06)
[2023-04-30] MEDS: ENOXAPARIN 40 MG/0.4 ML SYRINGE SUB-Q (08:36)
[2023-04-30] MEDS: FAMOTIDINE 20 MG TABLET FEED TUBE ×2 (08:36→17:29)
[2023-04-30] MEDS: DICLOFENAC SODIUM 1% 100 GM GEL (*BKC) 1 APPLIC TOPICAL ×3 (08:37→17:29)
[2023-04-30] MEDS: BUDESONIDE RESPULE NEB 0.5 MG/2 ML AMP INHALATION (09:12)
[2023-04-30 11:48] LABS: Glucose Point of Care 144 mg/dl (65-105)
--- NOTE | 2023-04-30 13:11 | PM.PNPUL ---
Progress Note: A&P Assessment and Plan (1) COPD (chronic obstructive pulmonary disease): Code(s): J44.9 - Chronic obstructive pulmonary disease, unspecified Status: Acute (2) Acute on chronic respiratory failure with hypoxia and hypercapnia: Code(s): J96.21 - Acute and chronic respiratory failure with hypoxia; J96.22 - Acute and chronic respiratory failure with hypercapnia Status: Acute Assessment and Plan: A 77-year-old female patient was admitted from half-way. Her medical history includes a cerebrovascular accident resulting in right-sided deficits, chronic deconditioning, bedbound status, and limited strength in her left upper extremity. She has COPD with chronic hypoxic hypercarbic respiratory failure, requiring 2L nasal cannula and noninvasive ventilation at her half-way. She also has chronic indwelling Tam catheter, GERD, pulmonary hypertension, anemia, a history of DVT treated with Lovenox and an IVC filter, seizures, and diastolic dysfunction. She was brought in from the half-way after staff observed wheezing, which was addressed with a nebulizer treatment during her EMS transport and had ceased upon her arrival. She has been diagnosed with acute exacerbation of chronic respiratory failure and has been treated with antibiotics, short-acting bronchodilators IV steroids. She underwent a tracheostomy with a 6 Shiley cuff on April 27. This was her second tracheostomy, the first being in April 2022 due to COVID-19, after which she was decannulated 4 weeks later at [facility] in [place]. A chest CT showed lower lobe infiltrates bilaterally, related to pneumonia/atelectasis. Recent chest x-ray in addition to COPD showed increasing left pleural effusion. Will repeat chest x-ray in a.m. (3) Tracheostomy dependence: Code(s): Z93.0 - Tracheostomy status Status: Acute Subjective Date/time seen: 04/30/23 13:11 Interval history: The patient is currently in IMU following a tracheostomy procedure. She is on 41 L/min of AirVo and her FiO2 has been reduced to 40% from 60%. Her respiratory rate varies between 20-24 and occasionally spikes to 35. Despite these occasional elevated rates, she does not require ventilator support. She is capable of responding to queries by nodding, but her overall strength is significantly low as evidenced by her inability to follow commands to squeeze hands. Exam Narrative: GEN: Alert, nonverbal however can nod to questions; has had a stroke. Not in distress. HEENT: pupils are equal, EOMI, symmetrical face; NECK: Trachea is midline, tracheostomy is in situ, clean dressing. CHEST: Equal air entry, symmetric excursion, clear breath sounds CV: Regular S1S2 no m/g/r Extremities : no clubbing, cyanosis, or edema Objective Data Vital Signs Vital Signs: Vital Signs - 24 hr 04/29/23 13:17 04/29/23 13:18 04/29/23 14:00 Temperature Pulse Rate 105 H 105 H 114 H Respiratory Rate 26 H 26 H Blood Pressure Pulse Oximetry 100 Oxygen Delivery High Flow Therapy with Tr Oxygen Flow Rate 45 Fraction of Inspired Oxygen 40 04/29/23 16:00 04/29/23 18:00 04/29/23 16:00 Temperature 36.9 C Pulse Rate 109 H 105 H 112 H Respiratory Rate 32 H Blood Pressure 103/57 L Pulse Oximetry 100 Oxygen Delivery Oxygen Flow Rate Fraction of Inspired Oxygen 04/29/23 16:00 04/29/23 20:33 04/29/23 21:03 Temperature 37.0 C Pulse Rate 98 100 Respiratory Rate 18 14 Blood Pressure 115/67 Pulse Oximetry 100 98 100 Oxygen Delivery High Flow Therapy with Tr BiPAP Oxygen Flow Rate 45 Fraction of Inspired Oxygen 41 04/29/23 20:30 04/29/23 21:00 04/29/23 21:08 Temperature Pulse Rate 100 100 101 H Respiratory Rate 15 15 14 Blood Pressure Pulse Oximetry 100 Oxygen Delivery High Flow Therapy with Tr Oxygen Flow Rate 45 Fraction of Inspired Oxygen 40 04/29/23 20:00 04/29/23 20:00 04/29/23 22:00
--- NOTE | 2023-04-30 15:59 | PM.DS ---
DS: Admitting Diagnosis Discharge Date 04/30/23 Admitting Diagnosis acute on chronic respiratory failure DS: Discharge Diagnosis Discharge Diagnosis (1) Tracheostomy dependence: Code(s): Z93.0 - Tracheostomy status Status: Acute (2) Acute on chronic respiratory failure with hypoxia and hypercapnia: Code(s): J96.21 - Acute and chronic respiratory failure with hypoxia; J96.22 - Acute and chronic respiratory failure with hypercapnia Status: Acute (3) Seizures: Code(s): R56.9 - Unspecified convulsions Status: Acute (4) COPD (chronic obstructive pulmonary disease): Code(s): J44.9 - Chronic obstructive pulmonary disease, unspecified Status: Acute (5) Dysphagia: Code(s): R13.10 - Dysphagia, unspecified Status: Acute (6) Pneumonia: Qualifiers: Laterality: left Lung location: lower lobe of lung Pneumonia type: due to unspecified organism Qualified Code(s): J18.9 - Pneumonia, unspecified organism Code(s): J18.9 - Pneumonia, unspecified organism Status: Acute DS: Summary Hospital Course Hospital Course: A pleasant 77-year-old female with past medical history CVA with resultant right-sided deficits and chronic deconditioning and bedbound status (at baseline has 3/5 LUE motor strength only), G-tube due to dysphagia, COPD with chronic hypoxic hypercarbic respiratory failure requiring 2 L nasal cannula at detention and noninvasive ventilation, chronic indwelling Tam catheter, GERD, pulmonary hypertension, anemia, and history of DVT on Lovenox and IVC filter, and seizures, diastolic dysfunction presented from detention as the staff noted wheezing.? She received neb treatment in EMS and was not wheezing upon arrival. She was treated for acute on chronic hypoxic hypercarbic respiratory failure with noninvasive ventilation and oxygen. She also received IV steroids and scheduled nebs. For HCAP she received cefepime vancomycin Flagyl and meropenem. Sputum culture on April 27 demonstrating Pseudomonas with the following sensitivity 1. Pseudomonas aeruginosa M.I.C. RX --------- --- Amikacin <=1 S Ceftazidime 8 S Ciprofloxacin 1 I Levofloxacin 4 R Gentamycin <=1 S Imipenem >=16 R Meropenem >=16 R Piperacillin/Tazobactam 32 I Legend: S = Susceptible I = Intermediate R = Resistant NS = Not susceptible * = Not tested NR = Not reported NN = See antimicrobic comments Therefore she will be discharged on another 7 days of ceftazidime 2 g t.i.d. she is beginning to have a lot of secretions so her scopolamine will be resumed. She was also treated for a UTI with Bree tropicalis with micafungin. Hypernatremia was treated with increased free water flushes. Pulmonology was consulted.? The patient has recurrent aspirations with respiratory failure and multiple intubations.? She had been using noninvasive ventilator at the detention but that was relatively contraindicated due to the patient's extreme weakness and inability to pull off her mask.? Underwent tracheostomy with 6 Shiley cuff on April 27.? She previously had a tracheostomy in April of 2022 due to COVID and went to [facility] in [place] where she was decannulated 4 weeks later.? She has stabilized and is being discharged to [facility] in [place]. She is now breathing spontaneously on Airvo with 45 L and 39% FiO2. During her stay she had a modified code. She requests no CPR but ventilati
== END 2023-04-30 18:20 | DRG 4 ==
LOC: ANHED 18:06 → ANH3MEDSUR 18:21 → ANHIMU 04-23 09:29 → ANHICU 04-27 15:34 → ANHIMU 04-28 17:29
PROVIDERS: Hospitalist; Internal Medicine; Internal Medicine Gastroenterology; Otolaryngology; Admitting Provider Family Medicine; Emergency Provider Emergency Medicine; PCP Hospitalist; Visit Provider General Practice
PROC: 0DH63UZ Insertion of Feeding Device into Stomach, Percutaneous Approach (ICD-10-PCS; CPT 43246; principal; 2023-04-25 15:00)
PROC: 0B110F4 Bypass Trachea to Cutaneous with Tracheostomy Device, Open Approach (ICD-10-PCS; principal; 2023-04-27 13:15)
DX: J18.9 Pneumonia, unspecified organism; J96.22 Acute and chronic respiratory failure with hypercapnia; J96.21 Acute and chronic respiratory failure with hypoxia; B37.49 Other urogenital candidiasis; E87.0 Hyperosmolality and hypernatremia; E87.1 Hypo-osmolality and hyponatremia; J44.0 Chronic obstructive pulmonary disease with (acute) lower respiratory infection; I69.351 Hemiplegia and hemiparesis following cerebral infarction affecting right dominant side; I11.0 Hypertensive heart disease with heart failure; I50.9 Heart failure, unspecified; K21.9 Gastro-esophageal reflux disease without esophagitis; I27.20 Pulmonary hypertension, unspecified; R13.10 Dysphagia, unspecified; D75.839 Thrombocytosis, unspecified; F01.50 Vascular dementia, unspecified severity, without behavioral disturbance, psychotic disturbance, mood disturbance, and anxiety; Z20.822 Contact with and (suspected) exposure to COVID-19; I69.320 Aphasia following cerebral infarction; I69.391 Dysphagia following cerebral infarction; Z86.718 Personal history of other venous thrombosis and embolism; Z79.01 Long term (current) use of anticoagulants; Z99.81 Dependence on supplemental oxygen; Z93.1 Gastrostomy status; Z74.01 Bed confinement status
CPT/HCPCS: 36415; 36569; 36600; 43246; 71045; 71275; 80048; 80053; 81001; 82375; 82805; 82948; 83036; 83050; 83605; 83735; 83880; 84145; 84295; 85025; 85027; 85610; 85730; 87040; 87070; 87077; 87081; 87086; 87106; 87186; 87205; 87449; 87637; 87641; 87899; 93005; 94003; 94640; 94660; 94668; 94669; 96365; 99285; A4629; A9270; C1751; G0378; J0330; J0690; J0692; J0696; J1610; J1650; J1815; J1940; J2185; J2248; J2270; J2371; J2704; J2920; J3010; J3370; J7030; J7070; J7120; Q9967